=== PATIENT | female | born 1945 | race Caucasian/White ===

== ENCOUNTER → 2020-05-23 12:27 | Outpatient (BNVA) | payer MEDICARE, MEDICAID, SELFPAY | PROVIDERS: PCP Internal Medicine; Referring Provider Internal Medicine; Visit Provider Internal Medicine Gastroenterology | DX: K21.9 Gastro-esophageal reflux disease without esophagitis (principal); K44.9 Diaphragmatic hernia without obstruction or gangrene; Z79.899 Other long term (current) drug therapy | CPT/HCPCS: Q3014 ==

== ENCOUNTER 2021-02-05 10:16 | Outpatient (REF) | payer MEDICARE, MEDICAID, SELFPAY ==
--- NOTE | ~2021-02-05 | CT_ITS ---
EXAMINATION: CT HEAD WITHOUT CONTRAST CLINICAL INFORMATION: Unspecified COMPARISON: None TECHNIQUE: Contiguous axial imaging was performed from the skull base to vertex without intravenous administration of contrast. This CT examination was performed using dose optimization techniques as appropriate, variously including the following: *Automated exposure control *Adjustment of mA and/or kV according to patient size (this includes techniques or standardized protocols for targeted exams where dose is matched to indication/reason for exam; i.e. extremities or head) *Use of iterative reconstruction technique DLP: 535 mGy-cm FINDINGS: There is no evidence of an extra-axial collection. There is no evidence of intra-axial or extra-axial hemorrhage. The ventricles and extra-axial CSF spaces are appropriate. There is nonspecific periventricular white matter disease. 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 No mass, mass effect or acute infarct is seen. Paranasal sinuses, mastoid air cells and middle ears are clear. No skull fracture is seen. CT/CT head/brain wo con IMPRESSION: Nonspecific periventricular white matter disease and old left posterior parietal infarct.
== END 2021-02-05 10:17 | disposition home or self-care (01) ==
LOC: HO.CT 10:16
PROVIDERS: PCP Internal Medicine; Visit Provider Internal Medicine
DX: R40.20 Unspecified coma (principal)
CPT/HCPCS: 70450

== ENCOUNTER 2021-12-27 12:01 | Observation (INO) | payer MEDICARE, MEDICAID, SELFPAY ==
--- NOTE | ~2021-12-27 | CT_ITS ---
EXAMINATION: CT HEAD WITHOUT CONTRAST CLINICAL INFORMATION: Syncope and fall. Head trauma. COMPARISON: Previous head CT February 2021 TECHNIQUE: Contiguous axial imaging was performed from the skull base to vertex without intravenous administration of contrast. This CT examination was performed using dose optimization techniques as appropriate, variously including the following: *Automated exposure control *Adjustment of mA and/or kV according to patient size (this includes techniques or standardized protocols for targeted exams where dose is matched to indication/reason for exam; i.e. extremities or head) *Use of iterative reconstruction technique DLP: 595 mGy-cm FINDINGS: There is no evidence of an extra-axial collection. There is no evidence of intra-axial or extra-axial hemorrhage. The ventricles and extra-axial CSF spaces are slightly prominent. There is nonspecific periventricular white matter disease. There is an old left posterior parietal infarct that appears unchanged. No mass, mass effect or acute infarct is seen. Review at bone windows is normal. No skull fracture is seen. Visualized paranasal sinuses, mastoid air cells and middle ears are clear. CT/CT head/brain wo con IMPRESSION: No acute findings. No change from previous exams.
--- NOTE | ~2021-12-27 | CT_ITS ---
EXAMINATION: CT CERVICAL SPINE WITHOUT CONTRAST CLINICAL INFORMATION: Fall. Head and neck trauma. COMPARISON: None TECHNIQUE: Axial images through the cervical spine without contrast. Sagittal and coronal reconstructions on the technologist workstation were performed. This CT examination was performed using dose optimization techniques as appropriate, variously including the following: *Automated exposure control *Adjustment of mA and/or kV according to patient size (this includes techniques or standardized protocols for targeted exams where dose is matched to indication/reason for exam; i.e. extremities or head) *Use of iterative reconstruction technique DLP: 281 mGy-cm FINDINGS: There is mild curvature of the lower cervical and upper thoracic spine to the right. There is mild 3 mm anterior subluxation of C4 with respect to C5. Bone alignment is otherwise normal. No fracture or dislocation is seen. There is degenerative spondylosis and degenerative disc disease from C5-C6 and C6-C7. Prevertebral soft tissues are normal. There is bilateral carotid calcification. There is biapical pleural thickening. CT/CT cervical spine wo con IMPRESSION: Generative changes. No fracture or dislocation. Fleischner guidelines were followed.
--- NOTE | ~2021-12-27 | MR_ITS ---
EXAMINATION: MRI BRAIN WITHOUT CONTRAST CLINICAL INFORMATION: Dizziness. Headache. Vision changes. COMPARISON: CT scan of the head 12/27/2021. TECHNIQUE: Multiplanar MR imaging of the brain was performed without contrast. FINDINGS: There are small chronic cortical infarct involving left parietal and occipital lobes. Numerous chronic small vessel ischemic changes are also visualized within the periventricular white matter. No evidence of acute territorial infarct. No pathological magnetic susceptibility artifact. The left internal carotid artery flow-void is absent suggesting slow flow or occlusion of blood within the vessel. There is no intracranial mass effect or midline shift. No abnormal extra-axial collection. Lateral and third ventricles are normal. No hydrocephalus. Midline structures including the cervicomedullary junction are normal. No acute bone marrow signal changes. There is no mastoid or middle ear effusion. No active paranasal sinus disease. Globes and orbits are symmetric. MR/MR head/brain wo con IMPRESSION: The left internal carotid flow void is absent which indicates slow flow or occlusion of blood within the vessel. A dedicated CT angiogram of the head and neck is therefore recommended for better anatomic characterization of arterial patency. 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 Numerous chronic small vessel ischemic changes are also visualized within the periventricular white matter. No evidence of acute territorial infarct or hemorrhage.
--- NOTE | ~2021-12-27 | CT_ITS ---
Indication: Syncope nausea vomiting with pain EXAMINATION: CT chest, CT abdomen pelvis noncontrast. Comparison to previous dated 12/09/2018. This CT examination was performed using dose optimization techniques as appropriate, variously including the following: *Automated exposure control *Adjustment of mA and/or kV according to patient size (this includes techniques or standardized protocols for targeted exams where dose is matched to indication/reason for exam; i.e. extremities or head) *Use of iterative reconstruction technique. Radiation dose [address] chest; The thoracic inlet is within normal limits. The axillary regions are unremarkable. Coronary calcifications are noted There is no evidence for bulky central adenopathy. Some shotty nodes were also noted previously. This is a noncontrast study but the hilar regions do not appear pathologically enlarged. Comparable to previous. Imaging of the lung omer. Right lung; Stable apical scarring. Minimal groundglass nodularity on image 16 is stable. There is a new nodule on image 34 of 60. Measures 4 mm. Stable 2 mm nodule at the right base. There is no significant infiltrate or effusion. New 3 mm nodule on image 31 medially. Stable 2 mm nodule right base. Image 50. Left lung; Stable apical scarring. New 3 mm nodule image 12. There is no significant infiltrate or effusion. Upper abdomen; Liver grossly within normal limits. Spleen within normal limits. Region the pancreas is felt to be unchanged. Mildly nodular left adrenal is unchanged. The kidneys are nonobstructing. Comparable to previous. Gallbladder fossa within normal limits. The bladder is grossly unremarkable. The bowel pattern is felt to be nonobstructing. The appendix is within normal limits. There is no bulky adenopathy here. Atherosclerotic change but no aneurysmal change. The abdominal wall is felt to be intact. Review of the bone windows does not demonstrate an acute finding. Once again sclerosis in the femoral heads is seen but the femoral head contours are felt to be intact. CT/CT abdomen pelvis wo con IMPRESSION: No acute finding here. No significant infiltrate or effusion within the lungs. Some stable areas of nodularity with some new areas of nodularity as described. Recommendation is low-dose noncontrast CT in 6 months for continued evaluation. No acute finding in the abdomen pelvis. The bowel pattern is felt to be nonobstructing. Possible small hiatal hernia present. There is no suspicious fluid collection.
[2021-12-27 12:02] VITALS: BP 158/72; BP 170/63; PULSE 72; RESP 14; TEMP 36.1; BMI 24.7
--- NOTE | 2021-12-27 12:09 | ECG_ITS ---
Test Reason : syncope Blood Pressure : / mmHG Vent. Rate : 066 BPM Atrial Rate : 066 BPM P-R Int : 194 ms QRS Dur : 164 ms QT Int : 466 ms P-R-T Axes : 074 -07 -27 degrees QTc Int : 488 ms Normal sinus rhythm Left bundle branch block Abnormal ECG When compared with ECG of 02-MAR-2019 09:31, QRS duration has increased T wave inversion now evident in Inferior leads Referred By: Richard Morgan Electronically Signed By:URI VENTURA MD
[2021-12-27] MEDS: Metoclopramide HCl 10 MG/2 ML VIAL IVPUSH (12:21)
--- NOTE | 2021-12-27 12:24 | ED_ITS ---
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 Patient then immediately started vomiting afterwards, she tells me she feels like her stomach is empty and she just does not feel well. She also reports associated shortness of breath. Some dizziness with slight vision changes however she tells me she can still see, dizziness described as room spinning. At this time she is denying chest pain, fevers, chill. Onset (ago): day(s) (1) Radiation: non-radiation Severity: mild Pain Consistency: constant Relieving factors: none Exacerbating factors: none Associated symptoms: denies other symptoms Treatments prior to arrival: none Related Data Home Medications Medication Instructions Recorded Confirmed amitriptyline 10 mg tablet 10 mg PO DAILY 05/23/20 amlodipine 10 mg tablet 10 mg PO DAILY 05/23/20 atorvastatin 40 mg tablet 40 mg PO DAILY 05/23/20 cholecalciferol (vitamin D3) 25 25 mcg PO DAILY 05/23/20 mcg (1,000 unit) capsule furosemide 20 mg tablet 20 mg PO DAILY 05/23/20 lisinopril 40 mg tablet 40 mg PO DAILY 05/23/20 metoprolol tartrate 100 mg tablet 100 mg PO DAILY 05/23/20 nateglinide 60 mg tablet 60 mg PO TID 05/23/20 omeprazole 40 mg capsule,delayed 40 mg PO DAILY 05/23/20 release sitagliptin 50 mg tablet (Januvia) 50 mg PO DAILY 05/23/20 Allergies Allergy/AdvReac Type Severity Reaction Status Date / Time silver Allergy Unknown SKIN TEARS Unverified 03/22/20 15:14 [From TEGBlueroof 360 AG MESH] TAPE,PAPER Allergy Unknown UNKNOWN Uncoded 03/22/20 15:14 Review of Systems Review of Systems: Constitutional : No Weight loss, No Fever, No Chills, No Fatigue, No Malaise ENT/Mouth : No sore throat, No Rhinorrhea Eyes: No Eye Pain, No Swelling, No Redness Cardiovascular : No Chest Pain, + SOB, No Dyspnea on Exertion, No Orthopnea, No Edema, No Palpitations Respiratory : No Cough, No Sputum, No Wheezing Gastrointestinal : No Nausea, No Vomiting, No Diarrhea, No Constipation, No abdominal Pain, No Hematochezia, No Melena Genitourinary : No Dysuria, No Urinary Frequency, No Hematuria, Musculoskeletal : No joint pain, No Myalgias, No Joint Swelling Skin : No Skin Lesions, No rash Neuro : + Weakness, No Numbness, + Dizziness, No Headache Psych : No Anxiety/Panic, No Depression All other systems reviewed and are negative Yes all other systems are reviewed and are negative [facility] Past Medical History Attestation statement: The following information was validated with the patient. Source: old records reviewed and nursing notes reviewed Medical History (Updated 12/27/21 @ 16:18 by KARI Ozuna) Diabetes Surgical History (Updated 05/23/20 @ 12:34 by DESIREE Rodríguez) History of esophagogastroduodenoscopy (EGD) Family History Family History Father No problems noted. Mother No problems noted. Social History Social History Household Members: None Alcohol intake: current Alcohol intake frequency: does not drink Advance Directives: Yes Advance Directives Information Provided: Yes Advance Directives on File: No Current occupational status: retired Physical Exam ED Vital Signs: Vital Signs - 24 hr 12/27/21 12:02 Temperature 96.9 F Pulse Rate 72 Respiratory Rate 14 Blood Pressure 170/63 H Oxygen Delivery Method Room Air BMI result Body Mass Index 24.7 Vital signs stable Appearance: Alert.? Oriented X3.? No acute distress.? Head: Normocephalic, atraumatic, no step-offs or deformities Eyes: Pupils equal, round and reactive to light.? ENT: Pharynx normal.? Neck: Normal inspection.? Neck supple.? CVS: Normal heart rate and rhythm.? Pulses normal.? Respiratory: No respiratory distress.? Breath sounds normal.? Abdomen: Soft and nontender.? Skin: Skin warm and dry.? Normal skin color.? Normal skin turgor.? Extremities: No lower extremity edema.? No calf ttp. 5/5 strength to bilateral upper and lower extremities Back: No midline tenderness, no C-spine tenderness, full range of motion, no CVA tenderness bilaterally Neuro: Oriented X 3.? No motor deficit.? No sensory deficit. CN 2-12 intact Course Reevaluation(s) Reevaluation #1: Patient continues to have episodes of significant vomiting despite Zofran, Reglan and Benadryl. At this time Haldol will tried. CBC within normal limits. Point of care 291. Chemistry with a slightly low sodium 131, currently receiving hydration, patient with a baseline LAURO again currently receiving hydration. Patient's troponin 10.2nd troponin will be repeated 3 hours after initial. COVID negative. Time: 13:51 Reevaluation #2: CT of the abdomen and pelvis with no acute findings. CT of the cervical spine with no acute findings. CT of the head with no acute findings. MRI pending. Patient's vomiting improved after Haldol. Tech reported to me that they tried to do orthostatics vital signs, patient reporting significant dizziness therefore positive orthostatics, she sat up and immediately felt like she was going to vomit. Time: 14:38 Reevaluation #3: At this time patient will be admitted to the hospitalist team, no need to obtain a CT at this time is this will not change patient Plan/outcomes. I discussed this case with my attending Dr. Wilson who recommends hospital admission. She will be admitted for syncope, orthostatic dizziness, nausea, vomiting, occluded left- sided carotid artery. Patient was educated on diagnosis, treatment plan and questions were answered. At this time patient will be admitted to the hospital. Time: 16:16 Medical Decision Making [facility] Narrative Medical decision making narrative: 1227 76-year-old female presenting to the emergency department status post syncopal episode that was preceded by dizziness and followed by the sinus as well with some vague complaints of shortness of breath x1 day. Physical examination significant for patient complaining of dizziness with positional changes, vital signs stable, regular rate and rhythm, lungs clear, abdomen soft nontender nondistended, neuro nonfocal, cerebellar function intact. Likely BPPV, low suspicion for posterior infarct. However, at this time as patient fell and hit her head a CT of the head and brain will be ordered to rule out intracranial hemorrhage. Patient is not on blood thinners. Plan at this time is labs, urine, troponin, EKG, CT scans, orthostatic vital signs, fluids. Patient received Zofran by EMS therefore Benadryl and Reglan will be administered at this time Medical Records Medical records reviewed: Yes I reviewed the patient's medical records. Lab Data Lab results reviewed: Yes I reviewed the patient's lab results. Result diagrams: 12/27/21 12:21 12/27/21 12:21 Labs: Lab Results 12/27/21 12/27/21 12/27/21 Range/Units 12:07 12:21 12:21 WBC 7.1 (4.8-10.8) X10*3/uL RBC 4.39 (4.20-5.50) X10*6/uL Hgb 12.8 (12.0-16.0) g/dl Hct 38.4 (37.0-47.0) % MCV 87.5 (80.0-98.0) fL MCH 29.2 (27.0-33.0) pg MCHC 33.3 (31.0-35.0) g/dl RDW 14.5 (11.0-16.0) % Plt Count 241 (160-400) X10*3/uL MPV 10.1 (9.4-12.3) fL Immature Gran % (Auto) 0.4 (0.0-0.4) % Neut % (Auto) 62.9 (45-73) % Lymph % (Auto) 24.9 (20-40) % [place] % (Auto) 9.5 (2-11) % Eos % (Auto) 1.7 (0-4) % Baso % (Auto) 0.6 (0-2) % Lymph # (Auto) 1.8 (1.2-4.9) X10*3/uL [place] # (Auto) 0.7 (0.1-1.2) X10*3/uL Eos # (Auto) 0.1 (0.0-0.4) X10*3/uL Baso # (Auto) 0.0 (0.0-0.2) X10*3/uL Abs Immat Gran (auto) 0.03 (0.00-0.03) X10*3/uL Absolute Neuts (auto) 4.5 (2.0-8.3) x10*3/uL Absolute Nucleated RBC 0.000 (0.0-0.012) X10*3/uL Nucleated RBC % (auto) 0.0 (0.0-0.2) /100WBC Sodium 131 L (135-145) mmol/L Potassium 4.3 (3.3-5.1) mmol/L Chloride 99 (96-108) mmol/L Carbon Dioxide 22 (22-29) mmol/L Anion Gap 14 (12-20) BUN 33 H (9-16) mg/dL Creatinine 1.95 H (0.5-1.4) mg/dL Estim Creat Clear Calc 21.8 Estimated GFR 25 POC Glucose 291 H (60-115) mg/dL Random Glucose 341 H (60-115) mg/dL Calcium 9.4 (8.4-10.2) mg/dL Magnesium 1.9 (1.6-2.6) mg/dL Total Bilirubin 0.3 (0.0-1.0) mg/dL AST 31 (5-31) U/L ALT 28 (0-31) U/L Alkaline Phosphatase 135 H (39-117) U/L Troponin I High Sens (<3.5-17.0) ng/L Total Protein 7.3 (6.5-8.0) g/dL Albumin 4.1 (3.5-5.0) g/dL COVID-19 (INGE) (Negative) COVID-19 Clin Com 12/27/21 12/27/21 12/27/21 Range/Units 12:21 12:21 15:33 WBC (4.8-10.8) X10*3/uL RBC (4.20-5.50) X10*6/uL Hgb (12.0-16.0) g/dl Hct (37.0-47.0) % MCV (80.0-98.0) fL MCH (27.0-33.0) pg MCHC (31.0-35.0) g/dl RDW (11.0-16.0) % Plt Count (160-400) X10*3/uL MPV (9.4-12.3) fL Immature Gran % (Auto) (0.0-0.4) % Neut % (Auto) (45-73) % Lymph % (Auto) (20-40) % [place] % (Auto) (2-11) % Eos % (Auto) (0-4) % Baso % (Auto) (0-2) % Lymph # (Auto) (1.2-4.9) X10*3/uL [place] # (Auto) (0.1-1.2) X10*3/uL Eos # (Auto) (0.0-0.4) X10*3/uL Baso # (Auto) (0.0-0.2) X10*3/uL Abs Immat Gran (auto) (0.00-0.03) X10*3/uL Absolute Neuts (auto) (2.0-8.3) x10*3/uL Absolute Nucleated RBC (0.0-0.012) X10*3/uL Nucleated RBC % (auto) (0.0-0.2) /100WBC Sodium (135-145) mmol/L Potassium (3.3-5.1) mmol/L Chloride (96-108) mmol/L Carbon Dioxide (22-29) mmol/L Anion Gap (12-20) BUN (9-16) mg/dL Creatinine (0.5-1.4) mg/dL Estim Creat Clear Calc Estimated GFR POC Glucose (60-115) mg/dL Random Glucose (60-115) mg/dL Calcium (8.4-10.2) mg/dL Magnesium (1.6-2.6) mg/dL Total Bilirubin (0.0-1.0) mg/dL AST (5-31) U/L ALT (0-31) U/L Alkaline Phosphatase (39-117) U/L Troponin I High Sens 10.8 10.6 (<3.5-17.0) ng/L Total Protein (6.5-8.0) g/dL Albumin (3.5-5.0) g/dL COVID-19 (INGE) Negative (Negative) COVID-19 Clin Com See Note ECG Data Attestation: I personally reviewed and interpreted this ECG as follows: Prior ECG tracings: available for review Interpretation: Ventricular rate of 66, MO normal, QRS normal, QT/QTC normal. EKG shows normal sinus rhythm with a left bundle branch block. When compared to EKG of February 2019 there are T-wave inversions in the inferior lead however no signs of acute ischemia at this time Critical Care Time Critical Care Time Critical Care Time: No Discharge Plan Discharge Clinical Impression: Syncope, Orthostatic dizziness, Nausea & vomiting, Carotid artery occlusion Patient Disposition: Still a Patient Prescriptions: No Action atorvastatin 40 mg tablet 40 mg PO DAILY cholecalciferol (vitamin D3) 25 mcg (1,000 unit) capsule 25 mcg PO DAILY furosemide 20 mg tablet 20 mg PO DAILY amlodipine 10 mg tablet 10 mg PO DAILY lisinopril 40 mg tablet 40 mg PO DAILY Januvia 50 mg tablet 50 mg PO DAILY nateglinide 60 mg tablet 60 mg PO TID Rx Instructions: give before meal(s) metoprolol tartrate 100 mg tablet 100 mg PO DAILY omeprazole 40 mg capsule,delayed release(DR/EC) 40 mg PO DAILY amitriptyline 10 mg tablet 10 mg PO DAILY
[2021-12-27 12:25] LABS: Glucose, Whole Blood 291 mg/dL (60-115)
[2021-12-27 12:28] LABS: MANUAL DIFF FLAG NO
[2021-12-27 12:36] LABS: Basophils Percent Auto 0.6 % (0-2); Eosinophils Absolute Auto 0.1 X10*3/uL (0.0-0.4); Eosinophils Percent Auto 1.7 % (0-4); Hematocrit 38.4 % (37.0-47.0); Hemoglobin 12.8 g/dl (12.0-16.0); Imm Gran Abs Auto 0.03 X10*3/uL (0.00-0.03); Imm Gran Pct Auto 0.4 % (0.0-0.4); Lymphocytes Absolute Auto 1.8 X10*3/uL (1.2-4.9); Lymphocytes Percent Auto 24.9 % (20-40); Mean Corpuscular HGB Conc 33.3 g/dl (31.0-35.0); Mean Corpuscular Hemoglobin 29.2 pg (27.0-33.0); Mean Corpuscular Volume 87.5 fL (80.0-98.0); Mean Platelet Volume 10.1 fL (9.4-12.3); Monocytes Absolute Auto 0.7 X10*3/uL (0.1-1.2); Monocytes Percent Auto 9.5 % (2-11); Neutrophils Absolute Auto 4.5 x10*3/uL (2.0-8.3); Neutrophils Percent Auto 62.9 % (45-73); Platelet Count 241 X10*3/uL (160-400); Red Blood Count 4.39 X10*6/uL (4.20-5.50); Red Cell Distribution Width 14.5 % (11.0-16.0); White Blood Count 7.1 X10*3/uL (4.8-10.8)
[2021-12-27 12:50] LABS: Alanine Aminotransferase 28 U/L (0-31); Albumin Level 4.1 g/dL (3.5-5.0); Alkaline Phosphatase 135 U/L (39-117); Anion Gap 14 (12-20); Aspartate Amino Transferase 31 U/L (5-31); Bilirubin Total 0.3 mg/dL (0.0-1.0); Blood Urea Nitrogen 33 mg/dL (9-16); Calcium 9.4 mg/dL (8.4-10.2); Carbon Dioxide 22 mmol/L (22-29); Chloride 99 mmol/L (96-108); Creatinine Clr Calc Pharmacy 21.8; Estimated Glomerular Filt Rate 25; Glucose Random 341 mg/dL (60-115); Magnesium 1.9 mg/dL (1.6-2.6); Potassium 4.3 mmol/L (3.3-5.1); Sodium 131 mmol/L (135-145); Total Protein 7.3 g/dL (6.5-8.0)
[2021-12-27 12:51] LABS: COVID-19 Test Negative (Negative); IDNOW Serial# 16C4AD1C
[2021-12-27 12:52] LABS: Troponin-I High Sensitivity 10.8 ng/L (<3.5-17.0)
[2021-12-27] MEDS: 0.9 % Sodium Chloride 1,000 ML 999 ML IV ×2 (12:56→15:24)
[2021-12-27] MEDS: diphenhydrAMINE HCL 50 MG/ML VIAL 25 MG IVPUSH (13:01)
[2021-12-27] MEDS: Haloperidol Lactate 5 MG/ML VIAL 2.5 MG IVPUSH (13:05)
--- NOTE | 2021-12-27 13:21 | PC.NURSE ---
pt can not tolerate orthostatic v/s eval . supine to full fowlers pt stated she feels dizzy and nausea. findingd reported to provider
[2021-12-27] MEDS: LORazepam 2 MG/ML VIAL 1 MG IVPUSH (14:00)
[2021-12-27 15:58] LABS: Troponin-I High Sensitivity 10.6 ng/L (<3.5-17.0)
[2021-12-27 16:53] LABS: Appearance Urine HAZY; Color Urine YELLOW; Glucose Urine UA >=1000 MG/DL (NEG); Leukocyte Esterase Urine NEG (NEG); Nitrite Urine NEG (NEG); UACC Culture Trigger NO; Urine Blood TRACE (NEG); Urine Ketones NEG (NEG); Urine Protein 1+ MG/DL (NEG-TRACE)
--- NOTE | 2021-12-27 17:11 | PHA.MEDREC ---
Pharmacy Consult ? Medication Reconciliation Pharmacy has completed the medication reconciliation.
--- NOTE | 2021-12-27 17:18 | P.HPHOSP_ITS ---
History of Present Illness Date of Service: 12/27/21 Chief Complaint: syncope 76-year-old female with history of diabetes,CKD 3, hypertension, GERD coming in her passing out. She was getting her hair done when she felt very dizzy and syncopized, also c/o some visual changes. In ED has multiple episodes of vomiting treated with Zofran, reglan, Benadryl and finally Haldol. Work up thus far unremarkable including CT heada, ECG, labs are ok, and she's nearly back to her baseline. MRI no acute finding but possible left carrotid occlusion Review of Systems Review of Systems: Gen: no fever Resp: no sob, no cough CV: no chest, no FONSECA, no leg edema GI: + n/v, no abd pain Neuro: No confusion, dizzy Yes all other systems are reviewed and are negative [facility] Medical History CKD (chronic kidney disease) stage 3, GFR 30-59 ml/min Diabetes GERD (gastroesophageal reflux disease) HTN (hypertension) Family History Father No problems noted. Mother No problems noted. Surgical History (Updated 05/23/20 @ 12:34 by DESIREE Rodríguez) History of esophagogastroduodenoscopy (EGD) Social History Household Members: None Alcohol intake: current Alcohol intake frequency: does not drink Patient Tobacco Use Status: Current someday Tobacco user Tobacco use type: Cigarette Cigarette Packs Per Day: 0.5 Cigarettes Per Day: 10.0 Smoked in Last 30 Days: Yes Patient Interested in Nicotine Replacement: No Patient Given Instructions on How to Stop Smoking: Yes Date Education Initiated: 12/27/21 Advance Directives: Yes Advance Directives Information Provided: Yes Advance Directives on File: No Advance Directives Date on File: 12/27/21 Current occupational status: retired Meds Allergies Allergy/AdvReac Type Severity Reaction Status Date / Time silver Allergy Unknown SKIN TEARS Unverified 03/22/20 15:14 [From TEGADERM AG MESH] TAPE,PAPER Allergy Unknown UNKNOWN Uncoded 03/22/20 15:14 Active Medications: Current Medications Pharmacy Consult (Consult Rx Perform Med Rec) 1 each MISCELLANE ONCE PRN PRN Reason: Consult order Home Medications Medication Instructions Recorded Confirmed Last Taken Type amlodipine 10 mg tablet 10 mg PO DAILY 05/23/20 12/27/21 12/27/21 History atorvastatin 40 mg tablet 40 mg PO BEDTIME 05/23/20 12/27/21 12/26/21 History cholecalciferol (vitamin D3) 25 25 mcg PO DAILY 05/23/20 12/27/21 12/27/21 History mcg (1,000 unit) capsule furosemide 20 mg tablet 20 mg PO DAILY 05/23/20 12/27/21 Unknown History lisinopril 40 mg tablet 40 mg PO DAILY 05/23/20 12/27/21 12/27/21 History metoprolol tartrate 100 mg tablet 200 mg PO BID 05/23/20 12/27/21 12/27/21 History nateglinide 60 mg tablet 60 mg PO TID 05/23/20 12/27/21 12/27/21 History omeprazole 40 mg capsule,delayed 40 mg PO DAILY 05/23/20 12/27/21 12/27/21 History release sitagliptin 50 mg tablet (Januvia) 50 mg PO DAILY 05/23/20 12/27/21 12/27/21 History albuterol sulfate 90 mcg/actuation 2 puff PO QID PRN Shortness Of 12/27/21 12/27/21 Unknown History aerosol inhaler Breath budesonide-formoterol HFA 160 1 puff PO BID 12/27/21 12/27/21 12/27/21 History mcg-4.5 mcg/actuation aerosol inhaler (Symbicort) ezetimibe 10 mg tablet 1 tab PO DAILY 12/27/21 12/27/21 12/27/21 History nortriptyline 25 mg capsule 2 cap PO BEDTIME 12/27/21 12/27/21 12/26/21 History Physical Exam Vital Signs and Narrative: Vital Signs: Last Vital Signs Temp 96.9 F 12/27/21 12:02 Pulse 72 12/27/21 12:02 Resp 14 12/27/21 12:02 BP 170/63 H 12/27/21 12:02 O2 Del Method 12/27/21 12:02 BMI result Body Mass Index 24.7 Const: Other: General: AO X 3, no acute distress HEENT: PERRLA, no nystgmus NEck supple Resp: CTA bilateral CVS: S1,S2,RRR GI: +BS, NT, no distention Skin: No rash Neuro: motor grossly intact, CN 2 to 12 intact, gait no tested, but coordination appear intact Psych: appropriate affect Results Labs CBC and Chem 7: 12/27/21 12:21 12/27/21 12:21 Labs: Laboratory Results - last 24 hr 12/27/21 12/27/21 12/27/21 12:07 12:21 12:21 MCV 87.5 MCH 29.2 MCHC 33.3 RDW 14.5 Plt Count 241 MPV 10.1 Immature Gran % (Auto) 0.4 Neut % (Auto) 62.9 Lymph % (Auto) 24.9 [place] % (Auto) 9.5 Eos % (Auto) 1.7 Baso % (Auto) 0.6 Lymph # (Auto) 1.8 [place] # (Auto) 0.7 Eos # (Auto) 0.1 Baso # (Auto) 0.0 Abs Immat Gran (auto) 0.03 Absolute Neuts (auto) 4.5 Absolute Nucleated RBC 0.000 Nucleated RBC % (auto) 0.0 Anion Gap 14 Estim Creat Clear Calc 21.8 Estimated GFR 25 POC Glucose 291 H Random Glucose 341 H Calcium 9.4 Magnesium 1.9 Total Bilirubin 0.3 AST 31 ALT 28 Alkaline Phosphatase 135 H Troponin I High Sens Total Protein 7.3 Albumin 4.1 Urine Color Urine Appearance Urine pH Ur Specific [place] Urine Protein Urine Glucose (UA) Urine Ketones Urine Blood Urine Nitrite Ur Leukocyte Esterase COVID-19 (INGE) COVID-19 Clin Com 12/27/21 12/27/21 12/27/21 12:21 12:21 15:33 MCV MCH MCHC RDW Plt Count MPV Immature Gran % (Auto) Neut % (Auto) Lymph % (Auto) [place] % (Auto) Eos % (Auto) Baso % (Auto) Lymph # (Auto) [place] # (Auto) Eos # (Auto) Baso # (Auto) Abs Immat Gran (auto) Absolute Neuts (auto) Absolute Nucleated RBC Nucleated RBC % (auto) Anion Gap Estim Creat Clear Calc Estimated GFR POC Glucose Random Glucose Calcium Magnesium Total Bilirubin AST ALT Alkaline Phosphatase Troponin I High Sens 10.8 10.6 Total Protein Albumin Urine Color Urine Appearance Urine pH Ur Specific [place] Urine Protein Urine Glucose (UA) Urine Ketones Urine Blood Urine Nitrite Ur Leukocyte Esterase COVID-19 (INGE) Negative COVID-19 Clin Com See Note 12/27/21 16:38 MCV MCH MCHC RDW Plt Count MPV Immature Gran % (Auto) Neut % (Auto) Lymph % (Auto) [place] % (Auto) Eos % (Auto) Baso % (Auto) Lymph # (Auto) [place] # (Auto) Eos # (Auto) Baso # (Auto) Abs Immat Gran (auto) Absolute Neuts (auto) Absolute Nucleated RBC Nucleated RBC % (auto) Anion Gap Estim Creat Clear Calc Estimated GFR POC Glucose Random Glucose Calcium Magnesium Total Bilirubin AST ALT Alkaline Phosphatase Troponin I High Sens Total Protein Albumin Urine Color YELLOW Urine Appearance HAZY Urine pH 6.0 Ur Specific [place] 1.010 Urine Protein 1+ H Urine Glucose (UA) >=1000 H Urine Ketones NEG Urine Blood TRACE Urine Nitrite NEG Ur Leukocyte Esterase NEG COVID-19 (INGE) COVID-19 Clin Com Imaging Radiologist's Impressions: Impressions Abdomen/Pelvis CT 12/27/21 13:14 IMPRESSION: No acute finding here. No significant infiltrate or effusion within the lungs. Some stable areas of nodularity with some new areas of nodularity as described. Recommendation is low-dose noncontrast CT in 6 months for continued evaluation. No acute finding in the abdomen pelvis. The bowel pattern is felt to be nonobstructing. Possible small hiatal hernia present. There is no suspicious fluid collection. Cervical Spine CT 12/27/21 13:14 IMPRESSION: Generative changes. No fracture or dislocation. Fleischner guidelines were followed. Chest CT 12/27/21 13:14 IMPRESSION: No acute finding here. No significant infiltrate or effusion within the lungs. Some stable areas of nodularity with some new areas of nodularity as described. Recommendation is low-dose noncontrast CT in 6 months for continued evaluation. No acute finding in the abdomen pelvis. The bowel pattern is felt to be nonobstructing. Possible small hiatal hernia present. There is no suspicious fluid collection. Head CT 12/27/21 13:14 IMPRESSION: No acute findings. No change from previous exams. Brain MRI 12/27/21 14:31 IMPRESSION: The left internal carotid flow void is absent which indicates slow flow or occlusion of blood within the vessel. A dedicated CT angiogram of the head and neck is therefore recommended for better anatomic characterization of arterial patency. 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 Numerous chronic small vessel ischemic changes are also visualized within the periventricular white matter. No evidence of acute territorial infarct or hemorrhage. Assessment and Plan (1) Syncope: Status: Acute (2) Orthostatic dizziness: Status: Acute (3) Nausea & vomiting: Status: Acute Plan 76-year-old female with history of diabetes,CKD 3, hypertension, GERD coming in her syncope with multiple episode of vomitting, neuro thus far intact Plan: Will observe overnight, hydrate, neuro check, carotid US tomorrow to further assess MRI finding, unable to due CTA d/t renal failure. consider Neuro eval. Symptomatic control for N/v which seems to have improved. DVT Prophylaxis heparin if stays over 24 hours.. Quality Stroke Does the patient have a stroke diagnosis?: No VTE Prior VTE?: No VTE Risk Level:: Medical - low VTE Device Contraindication: Treatment Not Tolerated VTE Drug Contraindication: Treatment Not Indicated
[2021-12-27 17:21] LABS: Amorphous Sediment Urine TRACE /LPF; Bacteria Urine 1+ /LPF; Squamous Epithelial Cell Urine TRACE /LPF
[2021-12-27] MEDS: Sodium Chloride 0.45 % 1,000 ML 100 ML IVCONT (18:17)
[2021-12-27 20:00] VITALS: BP 169/78; PULSE 82; RESP 18; TEMP 37; O2SAT 98
[2021-12-27 20:47] VITALS: BMI 25.0
[2021-12-27] MEDS: Atorvastatin Calcium 40 MG TABLET PO (20:47)
[2021-12-27] MEDS: 0.9 % Sodium Chloride Flush 3 ML SYRINGE IVFLUSH (20:47)
[2021-12-27] MEDS: Nortriptyline HCl 25 MG CAPSULE 50 MG PO (20:47)
[2021-12-27] MEDS: Metoprolol Tartrate 100 MG TABLET 200 MG PO (20:47)
[2021-12-27] MEDS: Albuterol Sulfate 90 MCG 8 GM INHALER 2 PUFF INHALE (22:42)
[2021-12-27 23:29] VITALS: BP 137/56; PULSE 77; RESP 20; TEMP 36.6; O2SAT 96
[2021-12-28 03:18] VITALS: BP 164/78; PULSE 77; RESP 21; TEMP 36.5; O2SAT 98
[2021-12-28] MEDS: Sodium Chloride 0.45 % 1,000 ML 100 ML IVCONT (05:21)
[2021-12-28] MEDS: Omeprazole 40 MG CAPSULE.DR PO (05:21)
[2021-12-28 07:55] VITALS: BP 189/90; PULSE 81; RESP 18; TEMP 36.4; O2SAT 96
[2021-12-28] MEDS: 0.9 % Sodium Chloride Flush 3 ML SYRINGE IVFLUSH (08:55)
[2021-12-28] MEDS: Metoprolol Tartrate 100 MG TABLET 200 MG PO (08:56)
[2021-12-28] MEDS: SITagliptin Phosphate 50 MG TABLET PO (08:56)
[2021-12-28] MEDS: Furosemide 20 MG TABLET PO (08:56)
[2021-12-28] MEDS: lisinopriL 40 MG TABLET PO (08:56)
[2021-12-28] MEDS: amLODIPine Besylate 10 MG TABLET PO (08:56)
[2021-12-28] MEDS: Cholecalciferol (Vitamin D3) 25 MCG TABLET PO (08:56)
[2021-12-28] MEDS: Ezetimibe 10 MG TABLET PO (08:56)
[2021-12-28 12:00] VITALS: BP 176/101; PULSE 75; RESP 18; TEMP 36.4; O2SAT 95
--- NOTE | 2021-12-28 13:22 | PM.DS ---
DS: Providers Provider Date of Service: 12/28/21 Date of admission: 12/27/21 17:35 Primary care physician: Gene Sanchez MD Consults: 12/28/21 08:57 Consult to Neurology Routine Consulting Provider: [facility] Reason for consultation: Syncope, abnormal MRI DS: Diagnosis Discharge Diagnosis (1) Syncope: Status: Resolved (2) Orthostatic dizziness: Status: Resolved (3) Nausea & vomiting: Status: Resolved DS: Summary Hospital Course Hospital Course: 76-year-old female with history of diabetes,CKD 3, hypertension, GERD coming in her passing out. She was getting her hair done when she felt very dizzy and syncopized, also c/o some visual changes. In ED has multiple episodes of vomiting treated with Zofran, reglan, Benadryl and finally Haldol. Work up thus far unremarkable including CT heada, ECG, labs are ok, and she's nearly back to her baseline. MRI no acute finding but possible left carrotid occlusion Hospital course: Patient was observed overnight on cardiac monitoring without arrhythmia, no further episode..Discussed with Neuro, no indication for further testing, patient refused carotid US and wanted to go home. Time Spent with Patient Time attestation: Total time spent providing and/or coordinating discharge services: Discharge coordination time: Greater than 30 minutes Quality: Safe Use of Opioids Does Pt have an Active Cancer Diagnosis on the Problem List?: No Quality: Stroke Does the patient have a stroke diagnosis?: No Physical Exam Vital Signs: Vital Signs: Last Vital Signs Temp 97.6 F 12/28/21 12:00 Pulse 75 12/28/21 12:00 Resp 18 12/28/21 12:00 BP 176/101 H 12/28/21 12:00 Pulse Ox 95 12/28/21 12:00 O2 Del Method 12/28/21 12:00 BMI result Body Mass Index 25.0 DS: Data Data Completed and Pending Labs on day of discharge: Laboratory Results - last 24 hr 12/27/21 12/27/21 15:33 16:38 Troponin I High Sens 10.6 Urine Color YELLOW Urine Appearance HAZY Urine pH 6.0 Ur Specific [place] 1.010 Urine Protein 1+ H Urine Glucose (UA) >=1000 H Urine Ketones NEG Urine Blood TRACE Urine Nitrite NEG Ur Leukocyte Esterase NEG Urine RBC 1-4 Urine WBC 1-4 Ur Squamous Epith Cells TRACE Amorphous Sediment TRACE Urine Bacteria 1+ Discharge Plan Discharge Anticipated Discharge Date/Time: 12/28/21 12:25 Patient Disposition: Home, Self-Care Discharge Diagnosis: Syncope, Nausea and vomitting Referrals: Gene Sanchez MD [Primary Care Provider] - 1 Week Discharge Medications: New aspirin 81 mg capsule 81 mg PO DAILY Qty: 30 0RF Continued nortriptyline 25 mg capsule 2 cap PO BEDTIME albuterol sulfate 90 mcg/actuation HFA aerosol inhaler 2 puff PO QID PRN (Reason: Shortness Of Breath) ezetimibe 10 mg tablet 1 tab PO DAILY budesonide-formoterol [Symbicort] 160-4.5 mcg/actuation HFA aerosol inhaler 1 puff PO BID atorvastatin 40 mg tablet 40 mg PO BEDTIME cholecalciferol (vitamin D3) 25 mcg (1,000 unit) capsule 25 mcg PO DAILY furosemide 20 mg tablet 20 mg PO DAILY amlodipine 10 mg tablet 10 mg PO DAILY lisinopril 40 mg tablet 40 mg PO DAILY Januvia 50 mg tablet 50 mg PO DAILY nateglinide 60 mg tablet 60 mg PO TID Rx Instructions: give before meal(s) metoprolol tartrate 100 mg tablet 200 mg PO BID omeprazole 40 mg capsule,delayed release(DR/EC) 40 mg PO DAILY Discharge Orders: Discharge Order (Routine); Ordered 12/28/21 Ordered By: Simone Olivares Activity on Discharge: As tolerated Stand Alone Forms: Patient Portal Discharge page Care Plan Goals: full recovery from [facility] Health Concerns: HTN, diabetes, syncope Plan of Treatment: continue taking all your medications as before, take baby asprin daily and follow up with your Doctor in a week Assessment: as above Discharge Date/Time: 12/28/21 15:23
[2021-12-28 14:00] VITALS: BP 158/78
--- NOTE | 2021-12-28 14:18 | MHC.CM.PN ---
Addendum entered by Marian Kurtz 12/28/21 14:21: PT DISCHARGED HOME TODAY WITH NO NEW SERVICES ORDERED TAXI VOUCHER PROVIDED Original Note: PT REPORTS SHE LIVES ALONE SHE REPORTS HER DAUGHTER RECENTLY GOT HER CONNECTED WITH [facility] AND THEY ARE NOW PROVIDING A [employer] REPAIRER SHE REPORTS THE [employer]ERA REPAIRER IS CURRENTLY ONLY ASSISTING WITH [employer] BUT SHE ALSO NEEDS RIDES TO APPTS AND SHOPPING. CM ENCOURAGED HER TO DISCUSS THIS WITH HER EC CM AND TO UTILIZE HER PT1 BENEFITS FROM [place]. PT REPORTS HER DAUGHTER, MARIAN, IS HER HCP-COPY REQUESTED PT REPORTS SHE IS COVID-19 VACCINATED AND HAD ONE BOOSTER PCP: ALEXIA [facility] OBSERVATION NOTICE DELIVERED CURRENT DC PLAN IS HOME WITH RESUMPTION OF [employer] REPAIRER SERVICES PT WILL NEED TRANSPORT HOME
== END 2021-12-28 15:23 | disposition home or self-care (01) ==
LOC: HO.ED 16:18 → HO.EDOVER 17:48 → HO.IMC 18:53
PROVIDERS: Physician Assistant; Admitting Provider Internal Medicine; Emergency Provider Emergency Medicine Emergency Medical Services; PCP Internal Medicine; Visit Provider Internal Medicine
DX: R55 Syncope and collapse (principal); E11.22 Type 2 diabetes mellitus with diabetic chronic kidney disease; R11.2 Nausea with vomiting, unspecified; I12.9 Hypertensive chronic kidney disease with stage 1 through stage 4 chronic kidney disease, or unspecified chronic kidney disease; N18.30 Chronic kidney disease, stage 3 unspecified; K21.9 Gastro-esophageal reflux disease without esophagitis; F17.210 Nicotine dependence, cigarettes, uncomplicated; Z79.899 Other long term (current) drug therapy; Z20.822 Contact with and (suspected) exposure to COVID-19
CPT/HCPCS: 36415; 70450; 70551; 71250; 72125; 74176; 80053; 81001; 82947; 83735; 84484; 85025; 87635; 93005; 96361; 96374; 96375; 99219; 99285; J1200; J2060; J2765

== ENCOUNTER 2022-02-27 09:34 | Outpatient (REF) | payer MEDICARE, MEDICAID, SELFPAY ==
--- NOTE | ~2022-02-27 | US_ITS ---
EXAMINATION: US EXTRACRANIAL CAROTID DUPLEX, BILATERAL CLINICAL INFORMATION: Syncope COMPARISON: None TECHNIQUE: Real-time ultrasound and Doppler techniques (integrating B-mode 2-D vascular images, Doppler spectral analysis and color-flow Doppler imaging) were utilized to interrogate the extracranial carotid arteries on the right. The exam was terminated prematurely secondary to patient's clinical status. FINDINGS: Right Side: 1. There is heterogeneous atherosclerotic plaque seen in the bifurcation/proximal ICA region. 2. The common carotid artery PSV proximally is 110 cm/s. US/US carotid duplex BI IMPRESSION: RIGHT: Heterogeneous atherosclerotic plaque. The exam was terminated secondary to patient's clinical condition. The patient was sent to the emergency room for evaluation.
== END 2022-02-27 09:35 | disposition home or self-care (01) ==
LOC: HO.US 09:34
PROVIDERS: Visit Provider Internal Medicine
DX: Z13.89 Encounter for screening for other disorder (principal)
CPT/HCPCS: 93880

== ENCOUNTER 2022-02-27 10:15 | Emergency (ER) | payer MEDICARE, MEDICAID, SELFPAY ==
[2022-02-27 10:22] VITALS: BP 150/73; PULSE 61; RESP 28; TEMP 36.4; O2SAT 91; BMI 23.8
[2022-02-27] MEDS: Meclizine HCl 25 MG TABLET PO (11:37)
--- NOTE | 2022-02-27 12:06 | ED.DIZZY ---
HPI - Dizziness General Chief Complaint: Nausea/Vomiting/Diarrhea Stated Complaint: Sent from ultrasound Time Seen by Provider: 02/27/22 11:13 Source: patient Mode of arrival: other (Rapid response and radiology) Limitations: no limitations History of Present Illness HPI Narrative: 76-year-old female who presents emergency department for evaluation of room spinning dizziness, chest pain abdominal pain. The patient was in the outpatient radiology department and she was about to get a carotid ultrasound study. She states that the technicians started the lower the head of her bed when she had a sudden onset of room spinning dizziness. She then had a discomfort that she describes as a pulling sensation from her lower abdomen all elevated up into her chest. She then developed nausea, vomiting and diaphoresis. Patient states that she has had a similar episode in the past and was here in the emergency department. She also states that she often gets the sensation when she is lying down in bed and turns her head either to the right or to the left. The time study technician concerned about the patient's appearance and activated a rapid response , which I responded and evaluated her and the ultrasound department. The patient was diaphoretic, she was dry heaving, she did not appear well, therefore she was transferred to the emergency department for evaluation MD elicited complaint: dizziness Pertinent past history: other (Similar episodes in the past) Onset (ago): minute(s) (5) Timing: sudden onset Severity: severe Description: room spinning Context: change in body position History of similar symptoms: Yes Exacerbating factors: movement/ambulation Relieving factors: nothing Associated symptoms: nausea, vomiting, diaphoresis, chest pain and other (Abdominal pain) Related Data Home Medications Medication Instructions Recorded Confirmed amlodipine 10 mg tablet 10 mg PO DAILY 05/23/20 12/27/21 atorvastatin 40 mg tablet 40 mg PO BEDTIME 05/23/20 12/27/21 cholecalciferol (vitamin D3) 25 25 mcg PO DAILY 05/23/20 12/27/21 mcg (1,000 unit) capsule furosemide 20 mg tablet 20 mg PO DAILY 05/23/20 12/27/21 lisinopril 40 mg tablet 40 mg PO DAILY 05/23/20 12/27/21 metoprolol tartrate 100 mg tablet 200 mg PO BID 05/23/20 12/27/21 nateglinide 60 mg tablet 60 mg PO TID 05/23/20 12/27/21 omeprazole 40 mg capsule,delayed 40 mg PO DAILY 05/23/20 12/27/21 release sitagliptin 50 mg tablet (Januvia) 50 mg PO DAILY 05/23/20 12/27/21 albuterol sulfate 90 mcg/actuation 2 puff PO QID PRN Shortness Of 12/27/21 12/27/21 aerosol inhaler Breath budesonide-formoterol HFA 160 1 puff PO BID 12/27/21 12/27/21 mcg-4.5 mcg/actuation aerosol inhaler (Symbicort) ezetimibe 10 mg tablet 1 tab PO DAILY 12/27/21 12/27/21 nortriptyline 25 mg capsule 2 cap PO BEDTIME 12/27/21 12/27/21 Previous Rx's Medication Instructions Recorded aspirin 81 mg capsule 81 mg PO DAILY #30 caps 12/28/21 Allergies Allergy/AdvReac Type Severity Reaction Status Date / Time silver Allergy Unknown SKIN TEARS Verified 02/27/22 11:37 [From [employer] MESH] TAPE,PAPER Allergy Unknown UNKNOWN Uncoded 02/27/22 11:37 Review of Systems Review of Systems: Yes all other systems are reviewed and are negative [facility] Past Medical History [facility] Narrative: Social history: The patient smokes 5-10 cigarettes per day. She denies alcohol use. She denies drug use. Medical History Carotid artery occlusion CKD (chronic kidney disease) stage 3, GFR 30-59 ml/min Diabetes GERD (gastroesophageal reflux disease) GERD (gastroesophageal reflux disease) Hiatal hernia HTN (hypertension) Surgical History History of esophagogastroduodenoscopy (EGD) Family History Family History Father No problems noted. Mother No problems noted. Social History Social History Household Members: None Alcohol intake: never Patient Tobacco Use Status: Current someday Tobacco user Tobacco use type: Cigarette Cigarette Packs Per Day: 0.5 Cigarettes Per Day: 10.0 Use of substances other than those prescribed or required for medical reasons: No Advance Directives: No Advance Directives Information Provided: No Advance Directives Date on File: 12/27/21 service: No Current occupational status: retired Physical Exam Vital Signs: Vital Signs: Last Vital Signs Temp 97.6 F 02/27/22 10:22 Pulse 61 02/27/22 10:22 Resp 28 H 02/27/22 10:22 BP 150/73 H 02/27/22 10:22 Pulse Ox 91 L 02/27/22 10:22 O2 Del Method 02/27/22 10:22 BMI result Body Mass Index 23.8 Const: Other: Awake, alert, female patient, oriented to person, place, she is diaphoretic, she is sitting up right on the ultrasound structure, she is actively dry heaving HEENT: Head: Yes normal to inspection, Yes normocephalic and Yes atraumatic Ears: external ears normal General nose exam: Normal external nose present Face and sinus: Yes normal facial exam Mouth: Normal oral and palatal mucosa present Throat: Yes posterior oropharynx normal Eyes: General: appearance normal, both eyes and all related structures Pupils: Equal, round and reactive pupils present Neck: Neck: Yes normal visual inspection, Yes no lymphadenopathy, Yes trachea midline and Yes supple Chest: Chest palpation & inspection: normal inspection of the chest and normal palpation of entire chest wall Resp: Effort & Inspection: normal respiratory effort and able to speak in complete sentences Auscultation: clear to auscultation bilaterally Cardio: Rate: regular rate Rhythm: regular rhythm Heart sounds: S1 normal heart sound present, S2 normal heart sound present and no murmurs GI: Inspection: Yes normal to inspection Palpation (GI): Soft to palpation, nontender and no guarding Auscultation: normal bowel sounds : General: Yes no CVA tenderness Back/Spine/Pelvis: Back: no CVA tenderness Skin: General skin exam: no rashes or lesions noted Neuro: Cranial nerves: Yes CN's II-XII intact bilaterally and Yes Equal, round and reactive pupils present Cognition (Neuro): normal cognition Motor exam (neuro): 5/5 motor strength present throughout Coordination: [id number] test normal and [id number] test normal Extrem: General: Yes normal to inspection Psych: Appearance: grossly normal Speech and movement: Normal speech and movement present Affect: normal affect Attitude: cooperative Thought process: Normal thought process present Thought content: Normal thought content present Course Course Course Narrative: 76-year-old female who presents emergency department for evaluation of sudden onset of room spinning dizziness, chest pain, abdominal pain , nausea and vomiting. The symptoms occurred while the patient was in the outpatient ultrasound department, after the materials engineering technician tried to lower her head of the bed in order to perform this study. Patient did not appear well and rapid response was activated. I evaluated the patient in the radiology department had the patient transferred to the emergency department for evaluation. By the time she got to the emergency department her symptoms improved significantly, she no longer felt dizzy and no longer had nausea, vomiting or chest pain. Twelve EKG was obtained the patient has a left bundle-branch block and this is similar to a previous 12 EKG. Patient was given meclizine 25 mg orally. The patient's presentation physical findings are consistent with acute benign paroxysmal positional vertigo and I did discuss this with her. She was given printed and verbal instructions. She was prescribed meclizine. She was advised to contact her doctor to reschedule her quadrant ultrasound. [facility] - Dizziness Medical Records Attestation: I reviewed the patient's medical records. Lab Data Attestation: I reviewed the patient's lab results. ECG Data Attestation: I personally reviewed and interpreted this ECG as follows: Interpretation: 1112: Sinus bradycardia with a rate of 55, prolonged GA interval of 208 milliseconds consistent with a first-degree AV block, prolonged QRS and QTC of 168 milliseconds and 40 milliseconds secondary to left bundle-branch block. Patient has T-wave abnormalities which is consistent with her left bundle-branch block, she has poor R-wave progression V1 through V3. Compared to EKG dated 12/27/2021 the first-degree AV block is new. The prolonged QRS and QTC are old. The left bundle-branch block is old. Discharge Plan Discharge Clinical Impression: Benign paroxysmal positional vertigo Qualifiers: Laterality: unspecified laterality Qualified Code(s): H81.10 - Benign paroxysmal vertigo, unspecified ear Vomiting Qualifiers: Nausea presence: unspecified Patient Disposition: Home, Self-Care Instructions: Benign Paroxysmal Positional Vertigo (ED) Additional Instructions: Your symptoms are consistent with benign positional vertigo (room spinning dizziness that occurs when you change the position of your head). Take meclizine 25 mg pills, 1 pill 3 times a day for the next 3 days for dizziness then as needed for dizziness. This medication will make you sleepy. Do not drive or work while taking this medication. Follow-up with your doctor in 2 days. Please return to the emergency department if your symptoms get worse or if you develop any symptoms that are concerning to you. You should reschedule your carotid arteries ultrasound studies. Prescriptions: No Action nortriptyline 25 mg capsule 2 cap PO BEDTIME albuterol sulfate 90 mcg/actuation HFA aerosol inhaler 2 puff PO QID PRN (Reason: Shortness Of Breath) ezetimibe 10 mg tablet 1 tab PO DAILY budesonide-formoterol [Symbicort] 160-4.5 mcg/actuation HFA aerosol inhaler 1 puff PO BID aspirin 81 mg capsule 81 mg PO DAILY Qty: 30 0RF atorvastatin 40 mg tablet 40 mg PO BEDTIME cholecalciferol (vitamin D3) 25 mcg (1,000 unit) capsule 25 mcg PO DAILY furosemide 20 mg tablet 20 mg PO DAILY amlodipine 10 mg tablet 10 mg PO DAILY lisinopril 40 mg tablet 40 mg PO DAILY Januvia 50 mg tablet 50 mg PO DAILY nateglinide 60 mg tablet 60 mg PO TID Rx Instructions: give before meal(s) metoprolol tartrate 100 mg tablet 200 mg PO BID omeprazole 40 mg capsule,delayed release(DR/EC) 40 mg PO DAILY
[2022-02-27 12:22] VITALS: BP 166/67; PULSE 60; RESP 13; O2SAT 96
--- NOTE | 2022-02-27 12:32 | PC.NURSE ---
Pt was given discharge instructions and the discharge instructions were explained to pt. Pt is alert and oriented, steady gait and is awaiting transportation via the courtesy van in the waiting area.
== END 2022-02-27 12:28 | disposition home or self-care (01) ==
PROVIDERS: Emergency Provider Emergency Medicine Emergency Medical Services; PCP Internal Medicine
DX: H81.10 Benign paroxysmal vertigo, unspecified ear (principal); R11.10 Vomiting, unspecified; R00.1 Bradycardia, unspecified; I44.7 Left bundle-branch block, unspecified; E11.22 Type 2 diabetes mellitus with diabetic chronic kidney disease; I12.9 Hypertensive chronic kidney disease with stage 1 through stage 4 chronic kidney disease, or unspecified chronic kidney disease; N18.30 Chronic kidney disease, stage 3 unspecified; R55 Syncope and collapse; F17.210 Nicotine dependence, cigarettes, uncomplicated; Z79.02 Long term (current) use of antithrombotics/antiplatelets; Z79.899 Other long term (current) drug therapy; Z79.82 Long term (current) use of aspirin
CPT/HCPCS: 93005; 93880; 99284

== ENCOUNTER 2023-01-13 13:36 | Inpatient (IN) | payer MEDICARE, MEDICAID, SELFPAY ==
--- NOTE | ~2023-01-13 | MR_ITS ---
EXAMINATION: MRI WITHOUT AND WITH MRI WITHOUT AND WITH CONTRAST FOOT, LEFT CLINICAL INFORMATION: Osteomyelitis COMPARISON: Radiographs 01/13/2023 TECHNIQUE: MRI without and with intravenous administration of 6 mL of Gadavist is performed on the left foot. Image quality is degraded by patient motion artifact FINDINGS: Marrow edema and enhancement throughout the 1st distal phalanx most prominent at the tuft where there is subtle loss of T1 fatty marrow signal compatible with osteomyelitis. No abscess. Bone marrow signal is otherwise normal. MR/MR foot LT wo/w con IMPRESSION: Mild or early osteomyelitis of the 1st distal phalanx most prominent at the tuft.
--- NOTE | ~2023-01-13 | XR_ITS ---
EXAMINATION: XR TOES, LEFT CLINICAL INFORMATION: Great toe infection with question of osteomyelitis COMPARISON: None available. TECHNIQUE: 3 views of the left first toe were obtained. FINDINGS: There are no fractures or dislocations. Soft tissue swelling is present. There is a question of some air seen in the subcutaneous tissues (See tee image). No definite cortical bone destruction. XR/XR toe LT min 2V IMPRESSION: Soft tissue swelling with question of some air in the subcutaneous tissues. No definite evidence of osteomyelitis. MRI is more sensitive than this exam if clinically important.
--- NOTE | ~2023-01-13 | US_ITS ---
EXAMINATION: NONINVASIVE ASSESSMENT OF THE ARTERIES OF THE LEFT LOWER EXTREMITY Guillermo Blanc MD CLINICAL INFORMATION: Diabetic left foot ulcer with question of peripheral arterial disease TECHNIQUE: Left lower extremity duplex ultrasound was performed with velocity measurements and waveform analysis in the common femoral arteries, profunda femoris arteries, proximal mid and distal superficial femoral arteries, popliteal arteries and tibial vessels. This study was performed only at rest. COMPARISON: CT abdomen pelvis 12/27/2021 FINDINGS: Velocities in cm/sec and phasicity as well as the presence of plaque are reported below. Moderate plaque is present throughout. Biphasic flow is present in the common femoral artery, but monophasic flow is noted throughout the remainder of the left lower extremity LEFT LEG: Common Femoral: 53 Profunda Femoris: 99 Proximal SFA: 182 - a tight stenosis is present in this area. Mid SFA: 38 Distal SFA: 29 Popliteal: 40 Posterior Tibial: 26 Peroneal: 15 US/US arterial duplex LE LT IMPRESSION: There is evidence of peripheral vascular disease with back and monophasic flow present throughout the majority of the left lower extremity. There is a tight stenosis in the proximal SFA with monophasic flow below this. CT angiography would be useful for further evaluation.
[2023-01-13 13:39] VITALS: BP 130/90; PULSE 90; O2SAT 96
[2023-01-13 13:46] VITALS: BP 153/85; PULSE 92; RESP 16; TEMP 36.8; O2SAT 95; BMI 23.6
--- NOTE | 2023-01-13 13:51 | PC.NURSE ---
Alert and oriented.Arrived from home stating 2 weeks ago her grandchild stepped on her toe and she saw a bruise on her toe nail. States was soaking the toe and A & D on it. States now toe is causing her pain and some difficulty walking on her foot. Left great toe, red, swollen, with scant amount of ss drainage. necrotic area to top and planter surface of foot. Able to move all toes with good sensation. Denies sob and fevers.
--- NOTE | 2023-01-13 13:57 | PC.NURSE ---
Patient reports smoking and is a type 2 diabetic
--- NOTE | 2023-01-13 16:08 | MHC.EDTECH ---
Brought patient cup of ice and a cup of water.
--- NOTE | 2023-01-13 16:51 | ED_ITS ---
HPI - General Adult General Chief complaint: General Medical Stated complaint: FELL T+ HEAD/BUTT PAIN INFECTED TOE PER EMS Time Seen by Provider: 01/13/23 16:02 Source: patient Mode of arrival: ambulatory Limitations: no limitations History of Present Illness HPI narrative: 77 yo female with DM presents with left great toe pain and infection. STarted 2 weeks ago. May have had localized trauma. Since, more swelling, pain and discoloration. Symptoms no radiating to left arch. Worse with ambulation and palpation. Feels cold to patient. No f/c/s. No n/v/d, reports sugars as being high. Does not routinely check glucose. Related Data Home Medications Medication Instructions Recorded Confirmed amlodipine 10 mg tablet 10 mg PO DAILY 05/23/20 12/27/21 atorvastatin 40 mg tablet 40 mg PO BEDTIME 05/23/20 12/27/21 cholecalciferol (vitamin D3) 25 25 mcg PO DAILY 05/23/20 12/27/21 mcg (1,000 unit) capsule furosemide 20 mg tablet 20 mg PO DAILY 05/23/20 12/27/21 lisinopril 40 mg tablet 40 mg PO DAILY 05/23/20 12/27/21 metoprolol tartrate 100 mg tablet 200 mg PO BID 05/23/20 12/27/21 nateglinide 60 mg tablet 60 mg PO TID 05/23/20 12/27/21 omeprazole 40 mg capsule,delayed 40 mg PO DAILY 05/23/20 12/27/21 release sitagliptin phosphate 50 mg tablet 50 mg PO DAILY 05/23/20 12/27/21 (Januvia) albuterol sulfate 90 mcg/actuation 2 puff PO QID PRN Shortness Of 12/27/21 12/27/21 aerosol inhaler Breath budesonide-formoterol HFA 160 1 puff PO BID 12/27/21 12/27/21 mcg-4.5 mcg/actuation aerosol inhaler (Symbicort) ezetimibe 10 mg tablet 1 tab PO DAILY 12/27/21 12/27/21 nortriptyline 25 mg capsule 2 cap PO BEDTIME 12/27/21 12/27/21 Previous Rx's Medication Instructions Recorded aspirin 81 mg capsule 81 mg PO DAILY #30 caps 12/28/21 Allergies Allergy/AdvReac Type Severity Reaction Status Date / Time silver Allergy Unknown SKIN TEARS Verified 02/27/22 11:37 [From [employer] AG MESH] TAPE,PAPER Allergy Unknown UNKNOWN Uncoded 02/27/22 11:37 Review of Systems Review of Systems: CONSTITUTIONAL: Denies weight loss, fever and chills. HEENT: Denies changes in vision and hearing. RESPIRATORY: Denies SOB and cough. CV: Denies palpitations no CP. GI: Denies abdominal pain, nausea, vomiting and diarrhea. : Denies dysuria and urinary frequency. MSK: Denies myalgia + joint pain. SKIN: Denies rash and pruritus. NEUROLOGICAL: Denies headache and syncope. PSYCHIATRIC: Denies recent changes in mood. Denies anxiety and depression. All other ROS are negative unless in HPI PMFSH Past Medical History Medical History Carotid artery occlusion CKD (chronic kidney disease) stage 3, GFR 30-59 ml/min Diabetes GERD (gastroesophageal reflux disease) GERD (gastroesophageal reflux disease) Hiatal hernia HTN (hypertension) Surgical History History of esophagogastroduodenoscopy (EGD) Family History Family History Father No problems noted. Mother No problems noted. Social History Social History Household Members: None Alcohol intake: never Patient Tobacco Use Status: Current someday Tobacco user Tobacco use type: Cigarette Cigarette Packs Per Day: 0.5 Cigarettes Per Day: 10.0 Smoked in Last 30 Days: Yes Use of substances other than those prescribed or required for medical reasons: Yes Substance Use Type: Marijuana Substance Use Frequency: Chronic Longstanding Advance Directives: No Advance Directives Information Provided: No Advance Directives Date on File: 12/27/21 service: No Current occupational status: retired Physical Exam ED Vital Signs: Vital Signs - 24 hr 01/13/23 13:46 Temperature 98.3 F Pulse Rate 92 Respiratory Rate 16 Blood Pressure 153/85 H Pulse Oximetry 95 Oxygen Delivery Method Room Air BMI result Body Mass Index 23.6 GEN: Well developed, no acute distress, alert, oriented HEENT: Normocephalic, atraumatic, normal external ears, nose appears normal Eyes: Normal to appearance Neck: Supple, no lymphadenopathy Respiratory: Talks in complete sentences, no respiratory distress Extremities: No clubbing cyanosis or edema Neurologic: No focal neurologic deficits, cranial nerves 2-12 intact, gait normal Skin: No rash, left toe possible cellulitic changes, also with eschar and plantar toe. Vasc: 1+ DP, PT pulses Course Reevaluation(s) Reevaluation #1: The workup is complete. X-ray did not clearly identify osteomyelitis. However, given the nature of the wound, I highly suspect this is in fact the case. I had extensive conversations with the hospitalist and the patient regarding our concerns for possible osteomyelitis, need for debridement, surgery, risk of amputation, sepsis bloodstream infection. Patient is actually quite anxious. I recommended she just take 1 night at a time and she agreed to be a small. She has already received a dose of intravenous antibiotics including Zosyn and vancomycin. Patient understands all concerns and all questions were addressed and answered. She is aware she may require an MRI to further characterize the concern for osteomyelitis. Time: 20:46 Medications Administered Discontinued Medications Generic Name Dose Route Start Last Admin Trade Name Freq PRN Reason Stop Dose Admin Piperacillin Sod/Tazobactam 50 mls @ 100 mls/hr 01/13/23 16:20 01/13/23 19:04 Sod 3.375 gm/ Sodium Chloride IV 01/13/23 16:49 Infused ONCE ONE Infusion Vancomycin HCl 1,250 mg/ 250 mls @ 166.667 mls/hr 01/13/23 16:30 01/13/23 17:46 Sodium Chloride IV 01/13/23 17:59 166.67 mls/hr ONCE ONE Administration Sodium Chloride 1,700.97 mls @ 1,700.97 mls/hr 01/13/23 17:26 01/13/23 17:54 Ns 30 ml/kg infuse over 1 hr (1700.97 ml) 01/13/23 18:25 1,700.97 mls/hr IV Administration .Q1H STA Medical Decision Making Medical Decision Making MDM Narrative: Toe pain: DD: cellulitis, osteomyelitis, wound, fractur, contusion Plan: XR to rulte out osteo, labs inlcuding ESR and CRP, BCx Tx: Vanco and Zosyn Differential Diagnosis Differential Diagnoses: The differential diagnosis associated with the presentation includes (see above) Admission/Observation Consideration of admission/observation: Escalation of care including admission/observation considered Lab Data MDM Lab Attestation statement: I reviewed the patient's lab results. 01/13/23 16:44 01/13/23 17:46 Labs: Lab Results 01/13/23 01/13/23 01/13/23 Range/Units 16:44 16:44 16:44 WBC 11.2 H (4.8-10.8) X10*3/uL RBC 4.55 (4.20-5.50) X10*6/uL Hgb 13.7 (12.0-16.0) g/dl Hct 42.1 (37.0-47.0) % MCV 92.5 (80.0-98.0) fL MCH 30.1 (27.0-33.0) pg MCHC 32.5 (31.0-35.0) g/dl RDW 15.9 (11.0-16.0) % Plt Count 429 H D (160-400) X10*3/uL MPV 9.9 (9.4-12.3) fL Immature Gran % (Auto) 0.4 (0.0-0.4) % Neut % (Auto) 60.5 (45-73) % Lymph % (Auto) 26.9 (20-40) % [place] % (Auto) 9.3 (2-11) % Eos % (Auto) 2.3 (0-4) % Baso % (Auto) 0.6 (0-2) % Lymph # (Auto) 3.0 (1.2-4.9) X10*3/uL [place] # (Auto) 1.0 (0.1-1.2) X10*3/uL Eos # (Auto) 0.3 (0.0-0.4) X10*3/uL Baso # (Auto) 0.1 (0.0-0.2) X10*3/uL Abs Immat Gran (auto) 0.05 H (0.00-0.03) X10*3/uL Absolute Neuts (auto) 6.8 (2.0-8.3) x10*3/uL Absolute Nucleated RBC 0.000 (0.0-0.012) X10*3/uL Nucleated RBC % (auto) 0.0 (0.0-0.2) /100WBC ESR (0-20) MM/HR PT 10.1 (10.0-13.1) SEC INR 0.9 (0.9-1.1) APTT 28.5 (26.0-36.4) SEC Sodium (135-145) mmol/L Potassium (3.3-5.1) mmol/L Chloride (96-108) mmol/L Carbon Dioxide (22-29) mmol/L Anion Gap (12-20) BUN (9-16) mg/dL Creatinine (0.5-1.4) mg/dL Estim Creat Clear Calc Estimated GFR Random Glucose (60-115) mg/dL Lactic Acid 3.2 H* (0.5-2.0) mmol/L Calcium (8.4-10.2) mg/dL C-Reactive Protein (< or = 0.50) mg/dL 01/13/23 01/13/23 Range/Units 16:44 17:46 WBC (4.8-10.8) X10*3/uL RBC (4.20-5.50) X10*6/uL Hgb (12.0-16.0) g/dl Hct (37.0-47.0) % MCV (80.0-98.0) fL MCH (27.0-33.0) pg MCHC (31.0-35.0) g/dl RDW (11.0-16.0) % Plt Count (160-400) X10*3/uL MPV (9.4-12.3) fL Immature Gran % (Auto) (0.0-0.4) % Neut % (Auto) (45-73) % Lymph % (Auto) (20-40) % [place] % (Auto) (2-11) % Eos % (Auto) (0-4) % Baso % (Auto) (0-2) % Lymph # (Auto) (1.2-4.9) X10*3/uL [place] # (Auto) (0.1-1.2) X10*3/uL Eos # (Auto) (0.0-0.4) X10*3/uL Baso # (Auto) (0.0-0.2) X10*3/uL Abs Immat Gran (auto) (0.00-0.03) X10*3/uL Absolute Neuts (auto) (2.0-8.3) x10*3/uL Absolute Nucleated RBC (0.0-0.012) X10*3/uL Nucleated RBC % (auto) (0.0-0.2) /100WBC ESR 73 H (0-20) MM/HR PT (10.0-13.1) SEC INR (0.9-1.1) APTT (26.0-36.4) SEC Sodium 136 (135-145) mmol/L Potassium 3.9 (3.3-5.1) mmol/L Chloride 103 (96-108) mmol/L Carbon Dioxide 21 L (22-29) mmol/L Anion Gap 16 (12-20) BUN 10 (9-16) mg/dL Creatinine 1.22 (0.5-1.4) mg/dL Estim Creat Clear Calc 30.0 Estimated GFR 43 Random Glucose 223 H (60-115) mg/dL Lactic Acid (0.5-2.0) mmol/L Calcium 10.3 H D (8.4-10.2) mg/dL C-Reactive Protein 1.34 H (< or = 0.50) mg/dL Independent Interpretation I performed an independent interpretation of an: Plain X-Ray Prescription Management I considered prescription management with: Pain Medication and Antibiotic Chronic Conditions Patient?s care impacted by: Diabetes Discharge Plan Discharge Clinical Impression: Diabetic foot ulcer Patient Disposition: Admitted As Inpatient Prescriptions: No Action nortriptyline 25 mg capsule 2 cap PO BEDTIME albuterol sulfate 90 mcg/actuation HFA aerosol inhaler 2 puff PO QID PRN (Reason: Shortness Of Breath) ezetimibe 10 mg tablet 1 tab PO DAILY budesonide-formoterol [Symbicort] 160-4.5 mcg/actuation HFA aerosol inhaler 1 puff PO BID aspirin 81 mg capsule 81 mg PO DAILY Qty: 30 0RF atorvastatin 40 mg tablet 40 mg PO BEDTIME cholecalciferol (vitamin D3) 25 mcg (1,000 unit) capsule 25 mcg PO DAILY furosemide 20 mg tablet 20 mg PO DAILY amlodipine 10 mg tablet 10 mg PO DAILY lisinopril 40 mg tablet 40 mg PO DAILY Juluvia 50 mg tablet 50 mg PO DAILY nateglinide 60 mg tablet 60 mg PO TID Rx Instructions: give before meal(s) metoprolol tartrate 100 mg tablet 200 mg PO BID omeprazole 40 mg capsule,delayed release(DR/EC) 40 mg PO DAILY
[2023-01-13 16:57] LABS: MANUAL DIFF FLAG NO
[2023-01-13 17:03] LABS: Basophils Absolute Auto 0.1 X10*3/uL (0.0-0.2); Basophils Percent Auto 0.6 % (0-2); Eosinophils Absolute Auto 0.3 X10*3/uL (0.0-0.4); Eosinophils Percent Auto 2.3 % (0-4); Hematocrit 42.1 % (37.0-47.0); Hemoglobin 13.7 g/dl (12.0-16.0); Imm Gran Abs Auto 0.05 X10*3/uL (0.00-0.03); Imm Gran Pct Auto 0.4 % (0.0-0.4); Lymphocytes Percent Auto 26.9 % (20-40); Mean Corpuscular HGB Conc 32.5 g/dl (31.0-35.0); Mean Corpuscular Hemoglobin 30.1 pg (27.0-33.0); Mean Corpuscular Volume 92.5 fL (80.0-98.0); Mean Platelet Volume 9.9 fL (9.4-12.3); Monocytes Percent Auto 9.3 % (2-11); Neutrophils Absolute Auto 6.8 x10*3/uL (2.0-8.3); Neutrophils Percent Auto 60.5 % (45-73); Platelet Count 429 X10*3/uL (160-400); Red Blood Count 4.55 X10*6/uL (4.20-5.50); Red Cell Distribution Width 15.9 % (11.0-16.0); White Blood Count 11.2 X10*3/uL (4.8-10.8)
[2023-01-13 17:05] LABS: INTERNATIONAL NORM RATIO 0.9 (0.9-1.1); Prothrombin Time 10.1 SEC (10.0-13.1)
[2023-01-13 17:08] LABS: Partial Thromboplastin Time 28.5 SEC (26.0-36.4)
[2023-01-13 17:24] LABS: Lactic Acid 3.2 mmol/L (0.5-2.0)
[2023-01-13] MEDS: Piperacillin Sodium/Tazobactam 3.375 GM in 0.9 % Sodium Chloride 50 ML IV (17:45)
[2023-01-13] MEDS: vancomycin HCL 1,250 MG in 0.9 % Sodium Chloride 250 ML 166.67 MG IV (17:46)
[2023-01-13] MEDS: 0.9 % Sodium Chloride 1,700.97 ML 1700.97 ML IV (17:54)
[2023-01-13 18:04] LABS: Erythrocyte Sedimentation Rate 73 MM/HR (0-20)
[2023-01-13 18:06] LABS: Anion Gap 16 (12-20); Blood Urea Nitrogen 10 mg/dL (9-16); C Reactive Protein 1.34 mg/dL (< or = 0.50); Calcium 10.3 mg/dL (8.4-10.2); Carbon Dioxide 21 mmol/L (22-29); Chloride 103 mmol/L (96-108); Estimated Glomerular Filt Rate 43; Glucose Random 223 mg/dL (60-115); Potassium 3.9 mmol/L (3.3-5.1); Sodium 136 mmol/L (135-145)
[2023-01-13 18:56] LABS: Reflex Lactate? Lactic Acid Added
--- NOTE | 2023-01-13 21:05 | P.HPHOSP_ITS ---
patient with diabetic ulcer, concerning for possible osteomyelitis, will obtain MRI, IV antibiotics, for full H&P please see below History of Present Illness Date of Service: 01/13/23 Attending physician on admission: Silvano Harris Chief Complaint: toe infection 77-year-old female with history of coronary artery disease, carotid artery occlusion, [id number]-lldgrtpwz type 2 diabetes, GERD, hypertension, and CKD stage 3 who is a current 1/2 pack per day smoker and marijuana user who presented to the ED earlier today for evaluation of left great toe pain with suspected infection. She states there may have been some trauma, feels she may have stepped on something several weeks ago and has developed a wound on the left great toe which has gradually been enlarging and has become increasingly painful. She has poor balance at baseline ambulates with a cane but states her balance has been worse due to the wound. She denies any fevers, chills, or purulent drainage. Has never had similar wound or infection. On arrival, VSS. There is a mild leukocytosis of 11.2. Creatinine 1.22, BUN 10, creatinine clearance 30, electrolyte levels normal. Initial lactic acid 3.2. CRP 1.34, ESR 73. XR of the left great toe shows soft tissue swelling with question of some air in the subcutaneous tissues but no definitive evidence of osteomyelitis. In the ED, was given 1700 mL IV fluids, IV Zosyn, and IV vancomycin. Pt is also noted to be incredibly anxious and tearful. Very overwhelmed by the situation. Discussion had with ED provider, myself, and patient to discuss need for inpt admission and pt ultimately agreeable. However, endorses significant anxiety about this. Reassurance offered. Review of Systems Review of Systems: General: No fevers, malaise, unintentional weight loss HEENT: No blurred vision, diplopia. No sore throat, nasal congestion, rhinorrhea, sinus pain, ear pain Cardiovascular: No chest pain, palpitations, or leg edema Respiratory: No shortness of breath, wheezing, cough GI: No abdominal pain, nausea, vomiting, diarrhea, constipation, melena, h ematochezia : No dysuria, hematuria, increased urinary frequency, decreased urinary output MSK: No myalgia, back pain Neuro: No headaches, weakness, paresthesias Psych: +anxiety/depression. No SI Skin: No rashes. +toe ulcer [facility] Medical History (Updated 01/13/23 @ 21:14 by KARI Crocker) CAD (coronary artery disease) Carotid artery occlusion CKD (chronic kidney disease) stage 3, GFR 30-59 ml/min Diabetes GERD (gastroesophageal reflux disease) GERD (gastroesophageal reflux disease) Hiatal hernia HTN (hypertension) Family History Father No problems noted. Mother No problems noted. Surgical History History of esophagogastroduodenoscopy (EGD) Social History Household Members: None Alcohol intake: never Patient Tobacco Use Status: Current someday Tobacco user Tobacco use type: Cigarette Cigarette Packs Per Day: 0.5 Cigarettes Per Day: 10.0 Smoked in Last 30 Days: Yes Use of substances other than those prescribed or required for medical reasons: Yes Substance Use Type: Marijuana Substance Use Frequency: Chronic Longstanding Advance Directives: No Advance Directives Information Provided: No Advance Directives Date on File: 12/27/21 service: No Current occupational status: retired Meds Allergies Allergy/AdvReac Type Severity Reaction Status Date / Time silver Allergy Unknown SKIN TEARS Verified 02/27/22 11:37 [From [employer]] TAPE,PAPER Allergy Unknown UNKNOWN Uncoded 02/27/22 11:37 Home Medications Medication Instructions Recorded Confirmed Last Taken Type amlodipine 10 mg tablet 10 mg PO DAILY 05/23/20 01/13/23 01/13/23 09:00 History atorvastatin 40 mg tablet 40 mg PO BEDTIME 05/23/20 01/13/23 01/12/23 History cholecalciferol (vitamin D3) 25 25 mcg PO DAILY 05/23/20 01/13/23 01/13/23 09:00 History mcg (1,000 unit) capsule lisinopril 40 mg tablet 40 mg PO DAILY 05/23/20 01/13/23 01/13/23 09:00 History metoprolol tartrate 100 mg tablet 200 mg PO BID 05/23/20 01/13/23 01/13/23 09:00 History nateglinide 60 mg tablet 60 mg PO TIDAC 05/23/20 01/13/23 01/13/23 09:00 History omeprazole 40 mg capsule,delayed 40 mg PO DAILY@0630 05/23/20 01/13/23 01/13/23 06:30 History release sitagliptin phosphate 50 mg tablet 50 mg PO DAILY 05/23/20 01/13/23 01/13/23 09:00 History (Narciso) budesonide-formoterol HFA 160 1 puff PO BID PRN Shortness Of 12/27/21 01/13/23 0 12/27/21 History mcg-4.5 mcg/actuation aerosol Breath Or Wheezing inhaler (Symbicort) nortriptyline 25 mg capsule 1 cap PO BEDTIME PRN Back Pain / 12/27/21 01/13/23 12/26/21 History foot pain aspirin 81 mg tablet,delayed 81 mg PO DAILY 01/13/23 01/13/23 01/13/23 09:00 History release dapagliflozin propanediol 5 mg 5 mg PO DAILY 01/13/23 01/13/23 01/13/23 09:00 History tablet (Farxiga) Physical Exam Vital Signs and Narrative: Vital Signs: Last Vital Signs Temp 98.3 F 01/13/23 13:46 Pulse 92 01/13/23 13:46 Resp 16 01/13/23 13:46 BP 153/85 H 01/13/23 13:46 Pulse Ox 95 01/13/23 13:46 O2 Del Method Room Air 01/13/23 13:46 BMI result Body Mass Index 23.6 Constitutional - Awake and Alert, No apparent distress Eyes - PERRLA, EOMI Cardiovascular - S1S2, RRR, No edema Respiratory - Normal lung expansion, Normal respiratory effort, No respiratory distress, CTA bilaterally Gastrointestinal - NT / ND; +BS; No rebound or guarding Extremities - no calf tenderness bilaterally, no swelling. Eschar covering the medial and plantar surface of the left great rose with dusky erythema surrounding on on plantar surface of remaining left toes. Cool left foot with 1+ dorsalis pedis pulse Skin - Warm/Dry. Neurological - Alert & oriented x3 Psychological - tearful, anxious, hopeless/depressed mood Results Labs 01/13/23 16:44 01/13/23 17:46 Labs: Laboratory Results - last 24 hr 01/13/23 01/13/23 01/13/23 16:44 16:44 16:44 MCV 92.5 MCH 30.1 MCHC 32.5 RDW 15.9 Plt Count 429 H D MPV 9.9 Immature Gran % (Auto) 0.4 Neut % (Auto) 60.5 Lymph % (Auto) 26.9 [place] % (Auto) 9.3 Eos % (Auto) 2.3 Baso % (Auto) 0.6 Lymph # (Auto) 3.0 [place] # (Auto) 1.0 Eos # (Auto) 0.3 Baso # (Auto) 0.1 Abs Immat Gran (auto) 0.05 H Absolute Neuts (auto) 6.8 Absolute Nucleated RBC 0.000 Nucleated RBC % (auto) 0.0 ESR PT 10.1 INR 0.9 APTT 28.5 Anion Gap Estim Creat Clear Calc Estimated GFR Random Glucose Lactic Acid 3.2 H* Calcium C-Reactive Protein 01/13/23 01/13/23 16:44 17:46 MCV MCH MCHC RDW Plt Count MPV Immature Gran % (Auto) Neut % (Auto) Lymph % (Auto) [place] % (Auto) Eos % (Auto) Baso % (Auto) Lymph # (Auto) [place] # (Auto) Eos # (Auto) Baso # (Auto) Abs Immat Gran (auto) Absolute Neuts (auto) Absolute Nucleated RBC Nucleated RBC % (auto) ESR 73 H PT INR APTT Anion Gap 16 Estim Creat Clear Calc 30.0 Estimated GFR 43 Random Glucose 223 H Lactic Acid Calcium 10.3 H D C-Reactive Protein 1.34 H Imaging Radiologist's Impressions: Impressions Toe X-Ray 01/13/23 17:10 IMPRESSION: Soft tissue swelling with question of some air in the subcutaneous tissues. No definite evidence of osteomyelitis. MRI is more sensitive than this exam if clinically important. Assessment and Plan (1) Diabetic foot ulcer: Status: Acute Plan 77-year-old female with history of coronary artery disease, carotid artery occlusion, yre-rsarbne-tcxjzfdip type 2 diabetes, GERD, hypertension, and CKD stage 3 who is a current 1/2 pack per day smoker and marijuana user admitted for infected diabetic foot ulcer of the left great toe with concern for osteomyelitis. #Acute infected unstageable ulcer left great toe due to uncontrolled diabetes -WBC 11.2, VSS. No sepsis -XR negative for osteo. ESR 73, CRP 1.7. Will check MRI foot w/ contrast given concern for osteomyelitis -IV vanco and cefepime -ID consult if osteo present on MRI -General surgery consult- would likely benefit from debridement -LLE arterial doppler pending -Follow CBC, cultures # zhp-mdbpdjz-hcgpuomye type 2 diabetes with hyperglycemia -hemoglobin A1c pending -hold oral antihyperglycemics. Consider stopping farxiga given foot ulcer -POC glucose -diabetic diet -Humalog on sliding scale -consider adding basal insulin if glucose remains elevated # hypertension -continue amlodipine, metoprolol, lisinopril # coronary artery disease -no anginal chest pain -continue aspirin, statin, beta-hilda # CKD stage 3 -renal function baseline DVT prophylaxis-Lovenox renally dosed For DNR/DNI Patient requires inpatient stay at least 2 midnights for management of infected diabetic foot ulcer requiring IV antibiotics and probable surgical debridement as well as concern for osteomyelitis requiring further imaging and possible long-term antibiotics with expert consultation Time Spent With Patient Time: Total time managing care of this patient today ____ minutes. Quality Stroke Does the patient have a stroke diagnosis?: No VTE Prior VTE?: No VTE Risk Level:: Medical - moderate - high VTE Device Contraindication: Treatment Not Indicated VTE Drug Contraindication: N/A - Med Ordered
--- NOTE | 2023-01-13 21:22 | PHA.MEDREC ---
Pharmacy Consult ? Medication Reconciliation Pharmacy has completed the medication reconciliation. Spoke to patient to confirm meds.
[2023-01-13 21:34] VITALS: BP 194/87; PULSE 94; RESP 18; TEMP 36.6; O2SAT 95
--- NOTE | 2023-01-13 21:36 | PC.NURSE ---
pt arrived from main ed. c/o toe pain, ultrasound by bedside
[2023-01-13] MEDS: Acetaminophen 325 MG TABLET 650 MG PO (21:48)
[2023-01-13] MEDS: LORazepam 0.5 MG TABLET PO (21:49)
[2023-01-13] MEDS: cefEPime HCl 2 GM in 0.9 % Sodium Chloride 50 ML IV (21:50)
--- NOTE | 2023-01-13 21:59 | PC.NURSE ---
pt transferred from Main ed, c/o pain medicated
[2023-01-13 22:24] LABS: ~Lactic Acid-LAB USE ONLY 1.3 mmol/L (0.5-2.0)
[2023-01-14] MEDS: 0.9 % Sodium Chloride Flush 3 ML SYRINGE IVFLUSH ×3 (00:13→16:01)
[2023-01-14 05:39] LABS: MANUAL DIFF FLAG NO
[2023-01-14 05:44] LABS: Basophils Absolute Auto 0.1 X10*3/uL (0.0-0.2); Basophils Percent Auto 0.7 % (0-2); Eosinophils Absolute Auto 0.2 X10*3/uL (0.0-0.4); Eosinophils Percent Auto 2.2 % (0-4); Hemoglobin 11.9 g/dl (12.0-16.0); Imm Gran Abs Auto 0.03 X10*3/uL (0.00-0.03); Imm Gran Pct Auto 0.3 % (0.0-0.4); Lymphocytes Absolute Auto 2.9 X10*3/uL (1.2-4.9); Lymphocytes Percent Auto 29.1 % (20-40); Mean Corpuscular HGB Conc 33.1 g/dl (31.0-35.0); Mean Corpuscular Hemoglobin 30.4 pg (27.0-33.0); Mean Corpuscular Volume 92.1 fL (80.0-98.0); Mean Platelet Volume 9.7 fL (9.4-12.3); Monocytes Percent Auto 10.2 % (2-11); Neutrophils Absolute Auto 5.8 x10*3/uL (2.0-8.3); Neutrophils Percent Auto 57.5 % (45-73); Platelet Count 398 X10*3/uL (160-400); Red Blood Count 3.91 X10*6/uL (4.20-5.50); Red Cell Distribution Width 15.9 % (11.0-16.0)
[2023-01-14 06:07] LABS: Anion Gap 16 (12-20); Blood Urea Nitrogen 9 mg/dL (9-16); Calcium 9.2 mg/dL (8.4-10.2); Carbon Dioxide 20 mmol/L (22-29); Chloride 108 mmol/L (96-108); Creatinine Clr Calc Pharmacy 36.3; Estimated Glomerular Filt Rate 53; Glucose Random 134 mg/dL (60-115); Potassium 3.6 mmol/L (3.3-5.1); Sodium 140 mmol/L (135-145)
[2023-01-14 06:16] VITALS: BP 155/81; PULSE 91; TEMP 36.6; O2SAT 94
[2023-01-14 07:22] LABS: Glucose, Whole Blood 132 mg/dL (60-115)
[2023-01-14 07:40] LABS: Estimated Average Glucose 220 mg/dL; Hemoglobin A1c % 9.3 %
[2023-01-14] MEDS: cefEPime HCl 2 GM in 0.9 % Sodium Chloride 50 ML IV ×2 (07:52→20:42)
--- NOTE | 2023-01-14 07:52 | P.CONGS_ITS ---
History of Present Illness Consult details Consult date: 01/14/23 Narrative: 77-year-old female with multiple medical problems including coronary disease, carotid artery disease, tobacco use, diabetes, admitted because of a big toe ulcer. She says that she had noticed this for over a month now. She thinks that this was after she had stepped on a sharp object. She had noticed persiste nt pain and discoloration. She denies any fever or chills. She denies any history of similar problems in other toes in the past Review of Systems Constitutional: Constitutional: Denies chills and Denies fever(s) Cardiovascular: Cardiovascular: Denies chest pain, Reports dyspnea and Reports dyspnea on exertion Respiratory: Respiratory: Denies cough, Reports dyspnea and Reports dyspnea on exertion Gastrointestinal: Gastrointestinal: Denies hematochezia and Denies change in bowel habits Genitourinary: Genitourinary: Denies hematuria Musculoskeletal: Musculoskeletal: Denies back pain and Denies limited range of motion Neurologic: Denies focal weakness and Denies convulsions Psychiatric: Psychiatric: Denies depression and Denies mood swings [facility] Past Medical History Medical History CAD (coronary artery disease) Carotid artery occlusion CKD (chronic kidney disease) stage 3, GFR 30-59 ml/min Diabetes GERD (gastroesophageal reflux disease) GERD (gastroesophageal reflux disease) Hiatal hernia HTN (hypertension) Family History Family History Father No problems noted. Mother No problems noted. Surgical History Surgical History History of esophagogastroduodenoscopy (EGD) Social History Social History Household Members: None Housing: Apartment Do you presently have visiting nurse or other home services: No Alcohol intake: never Patient Tobacco Use Status: Never used Tobacco Tobacco use type: Cigarette Cigarette Packs Per Day: 0.5 Cigarettes Per Day: 10.0 Substance Use Type: Marijuana Advance Directives Date on File: 01/14/23 service: No Current occupational status: retired Meds Allergies Allergy/AdvReac Type Severity Reaction Status Date / Time silver Allergy Unknown SKIN TEARS Verified 02/27/22 11:37 [From [employer]] TAPE,PAPER Allergy Unknown UNKNOWN Uncoded 02/27/22 11:37 Active Medications: Current Medications Acetaminophen (Acetaminophen 325 Mg Tablet) 650 mg PO Q6H PRN PRN Reason: Pain, Mild (Pain Scale 1-3) Last Admin: 01/13/23 21:48 Dose: 650 mg Dextrose (Dextrose 50 % 25 Gm/50 Ml Syringe) 25 gm IVPUSH Q15M PRN; Protocol PRN Reason: per Hypoglycemia Standing Ord. Docusate Sodium (Docusate Sodium 100 Mg Capsule) 100 mg PO DAILY PRN PRN Reason: Constipation Glucose (Glucose Gel 15 Gm Gel..Gram.) 15 gm PO Q15M PRN; Protocol PRN Reason: per Hypoglycemia Standing Ord. Cefepime HCl 2 gm/ Sodium (Chloride) 50 mls @ 100 mls/hr IV Q12H [facility] Last Infusion: 01/13/23 22:29 Dose: Infused Vancomycin HCl 750 mg/ Sodium (Chloride) 265 mls @ 265 mls/hr IV Q24H [facility] Insulin Human Lispro (Insulin Lispro 100 Unit/Ml 3 Ml Vial) 0 unit SUBCUT QIDACHS [facility]; Protocol Last Admin: 01/14/23 07:23 Dose: Not Given Lorazepam (Lorazepam 0.5 Mg Tablet) 0.5 mg PO DAILY PRN PRN Reason: Anxiety Last Admin: 01/13/23 21:49 Dose: 0.5 mg Ondansetron HCl (Ondansetron Hcl 4 Mg/2 Ml Vial) 4 mg IVPUSH Q8H PRN PRN Reason: Nausea and Vomiting Pharmacy Consult (Consult Rx Vancomycin Dosing) 1 each MISCELLANE DAILY PRN PRN Reason: Consult order Sodium Chloride (0.9 % Sodium Chloride Flush 3 Ml Syringe) [facility] Last Admin: 01/14/23 00:13 Dose: 3 ml Home Medications Medication Instructions Recorded Confirmed Last Taken Type amlodipine 10 mg tablet 10 mg PO DAILY 05/23/20 01/13/23 01/13/23 09:00 History atorvastatin 40 mg tablet 40 mg PO BEDTIME 05/23/20 01/13/23 01/12/23 History cholecalciferol (vitamin D3) 25 25 mcg PO DAILY 05/23/20 01/13/23 01/13/23 09:00 History mcg (1,000 unit) capsule lisinopril 40 mg tablet 40 mg PO DAILY 05/23/20 01/13/23 01/13/23 09:00 History metoprolol tartrate 100 mg tablet 200 mg PO BID 05/23/20 01/13/23 01/13/23 09:00 History nateglinide 60 mg tablet 60 mg PO TIDAC 05/23/20 01/13/23 01/13/23 09:00 History omeprazole 40 mg capsule,delayed 40 mg PO DAILY@0630 05/23/20 01/13/23 01/13/23 06:30 History release sitagliptin phosphate 50 mg tablet 50 mg PO DAILY 05/23/20 01/13/23 01/13/23 09:00 History (Narciso) budesonide-formoterol HFA 160 1 puff PO BID PRN Shortness Of 12/27/21 01/13/23 12/27/21 History mcg-4.5 mcg/actuation aerosol Breath Or Wheezing inhaler (Symbicort) nortriptyline 25 mg capsule 1 cap PO BEDTIME PRN Back Pain / 12/27/21 01/13/23 12/26/21 History foot pain aspirin 81 mg tablet,delayed 81 mg PO DAILY 01/13/23 01/13/23 01/13/23 09:00 History release dapagliflozin propanediol 5 mg 5 mg PO DAILY 01/13/23 01/13/23 01/13/23 09:00 History tablet (Farxiga) Physical Exam Vital Signs: Vital Signs: Last Vital Signs Temp 97.8 F 01/14/23 06:16 Pulse 91 01/14/23 06:16 Resp 18 01/13/23 21:34 BP 155/81 H 01/14/23 06:16 Pulse Ox 94 01/14/23 06:16 O2 Del Method Room Air 01/14/23 06:16 BMI result Body Mass Index 23.6 Const: General: comfortable and no acute distress Orientation/consciousnes s: patient oriented x3 Neck: Neck: Yes no lymphadenopathy Resp: Auscultation: clear to auscultation bilaterally Cardio: Rhythm: regular rhythm GI: Palpation (GI): Soft to palpation, nontender and no guarding Neuro: General: patient oriented x3 Extrem: Other: Left big toe with eschar on the plantar aspect, about 2 x 2.5 cm, tender, no obvious pus, foot cold to touch, unable to appreciate distal pulses Results Labs 01/14/23 05:29 01/14/23 05:29 Labs: Abnormal lab results 01/13/23 01/13/23 01/13/23 Range/Units 16:44 16:44 16:44 WBC 11.2 H (4.8-10.8) X10*3/uL RBC (4.20-5.50) X10*6/uL Hgb (12.0-16.0) g/dl Hct (37.0-47.0) % Plt Count 429 H D (160-400) X10*3/uL Abs Immat Gran (auto) 0.05 H (0.00-0.03) X10*3/uL ESR 73 H (0-20) MM/HR Carbon Dioxide (22-29) mmol/L POC Glucose (60-115) mg/dL Random Glucose (60-115) mg/dL Lactic Acid 3.2 H* (0.5-2.0) mmol/L Calcium (8.4-10.2) mg/dL C-Reactive Protein (< or = 0.50) mg/dL 01/13/23 01/14/23 01/14/23 Range/Units 17:46 05:29 05:29 WBC (4.8-10.8) X10*3/uL RBC 3.91 L (4.20-5.50) X10*6/uL Hgb 11.9 L (12.0-16.0) g/dl Hct 36.0 L (37.0-47.0) % Plt Count (160-400) X10*3/uL Abs Immat Gran (auto) (0.00-0.03) X10*3/uL ESR (0-20) MM/HR Carbon Dioxide 21 L 20 L (22-29) mmol/L POC Glucose (60-115) mg/dL Random Glucose 223 H 134 H (60-115) mg/dL Lactic Acid (0.5-2.0) mmol/L Calcium 10.3 H D (8.4-10.2) mg/dL C-Reactive Protein 1.34 H (< or = 0.50) mg/dL 01/14/23 Range/Units 07:14 WBC (4.8-10.8) X10*3/uL RBC (4.20-5.50) X10*6/uL Hgb (12.0-16.0) g/dl Hct (37.0-47.0) % Plt Count (160-400) X10*3/uL Abs Immat Gran (auto) (0.00-0.03) X10*3/uL ESR (0-20) MM/HR Carbon Dioxide (22-29) mmol/L POC Glucose 132 H (60-115) mg/dL Random Glucose (60-115) mg/dL Lactic Acid (0.5-2.0) mmol/L Calcium (8.4-10.2) mg/dL C-Reactive Protein (< or = 0.50) mg/dL Short CBC 01/13/23 01/14/23 Range/Units 16:44 05:29 WBC 11.2 H 10.0 (4.8-10.8) X10*3/uL Hgb 13.7 11.9 L (12.0-16.0) g/dl Hct 42.1 36.0 L (37.0-47.0) % Plt Count 429 H D 398 (160-400) X10*3/uL BMP 01/13/23 01/14/23 17:46 05:29 Sodium 136 140 Potassium 3.9 3.6 Chloride 103 108 Carbon Dioxide 21 L 20 L BUN 10 9 Creatinine 1.22 1.01 Calcium 10.3 H D 9.2 D All other labs normal. Assessment and Plan (1) Diabetic foot ulcer: Status: Acute She has an ulcer with a dry eschar on the big toe on the left side as described above. In view of her history, I would recommend a vascular surgery evaluation. She will need at least some debridement to allow healing down the line. She has been started on antibiotics. She otherwise looks comfortable and is non toxic looking. Time Spent With Patient Time: Total time managing care of this patient today ____ minutes. Procedures Date of Service Date of Service: 01/16/23
--- NOTE | 2023-01-14 08:48 | MHC.EDTECH ---
Assisted patient to/from restroom using a wheel chair. Hannah Zuniga
--- NOTE | 2023-01-14 09:51 | HO.PM.IMPN ---
Subjective Subjective Date of Service: 01/14/23 Review of Systems Follow diabetic foot ulcer Has some pain and neuropathy Reporting feeling very depressed and anxious Physical Exam Vital Signs: Vital Signs: Last Vital Signs Temp 97.8 F 01/14/23 06:16 Pulse 91 01/14/23 06:16 Resp 18 01/13/23 21:34 BP 155/81 H 01/14/23 06:16 Pulse Ox 94 01/14/23 06:16 O2 Del Method Room Air 01/14/23 06:16 BMI result Body Mass Index 23.6 Appearing in no acute distress Left great toe with black eschar to plantar aspect no drainage noted lung sounds are clear to auscultation heart regular rate rhythm, clear S1, S2 positive bowel sounds, abdomen is soft, nontender neuro patient is alert x3, no focal deficits Objective Data Active Medications Acetaminophen (Acetaminophen 325 Mg Tablet) 650 mg PO Q6H PRN PRN Reason: Pain, Mild (Pain Scale 1-3) Last Admin: 01/13/23 21:48 Dose: 650 mg Documented By: CHRISTELLE Dextrose (Dextrose 50 % 25 Gm/50 Ml Syringe) 25 gm IVPUSH Q15M PRN; Protocol PRN Reason: per Hypoglycemia Standing Ord. Docusate Sodium (Docusate Sodium 100 Mg Capsule) 100 mg PO DAILY PRN PRN Reason: Constipation Glucose (Glucose Gel 15 Gm Gel..Gram.) 15 gm PO Q15M PRN; Protocol PRN Reason: per Hypoglycemia Standing Ord. Cefepime HCl 2 gm/ Sodium (Chloride) 50 mls @ 100 mls/hr IV Q12H [facility] Last Infusion: 01/14/23 08:55 Dose: 0 mls/hr Documented By: ROULA Vancomycin HCl 750 mg/ Sodium (Chloride) 265 mls @ 265 mls/hr IV Q24H [facility] Insulin Human Lispro (Insulin Lispro 100 Unit/Ml 3 Ml Vial) 0 unit SUBCUT QIDACHS [facility]; Protocol Last Admin: 01/14/23 07:23 Dose: Not Given Documented By: ROULA Non-Admin Reason: No Insulin Coverage Lorazepam (Lorazepam 0.5 Mg Tablet) 0.5 mg PO DAILY PRN PRN Reason: Anxiety Last Admin: 01/13/23 21:49 Dose: 0.5 mg Documented By: CHRISTELLE Ondansetron HCl (Ondansetron Hcl 4 Mg/2 Ml Vial) 4 mg IVPUSH Q8H PRN PRN Reason: Nausea and Vomiting Pharmacy Consult (Consult Rx Vancomycin Dosing) 1 each MISCELLANE DAILY PRN PRN Reason: Consult order Sodium Chloride (0.9 % Sodium Chloride Flush 3 Ml Syringe) 3 ml IVFLUSH QSHIFT [facility] Last Admin: 01/14/23 07:55 Dose: 3 ml Documented By: ROULA Labs 01/14/23 05:29 01/14/23 05:29 Labs: Laboratory Results - last 24 hr 01/13/23 01/13/23 01/13/23 16:44 16:44 16:44 MCV 92.5 MCH 30.1 MCHC 32.5 RDW 15.9 Plt Count 429 H D MPV 9.9 Immature Gran % (Auto) 0.4 Neut % (Auto) 60.5 Lymph % (Auto) 26.9 [place] % (Auto) 9.3 Eos % (Auto) 2.3 Baso % (Auto) 0.6 Lymph # (Auto) 3.0 [place] # (Auto) 1.0 Eos # (Auto) 0.3 Baso # (Auto) 0.1 Abs Immat Gran (auto) 0.05 H Absolute Neuts (auto) 6.8 Absolute Nucleated RBC 0.000 Nucleated RBC % (auto) 0.0 ESR PT 10.1 INR 0.9 APTT 28.5 Anion Gap Estim Creat Clear Calc Estimated GFR POC Glucose Random Glucose Estimat Average Glucose Hemoglobin A1c % Lactic Acid 3.2 H* Lactic Acid F/U @ 2Hr Calcium C-Reactive Protein 01/13/23 01/13/23 01/13/23 16:44 16:44 17:46 MCV MCH MCHC RDW Plt Count MPV Immature Gran % (Auto) Neut % (Auto) Lymph % (Auto) [place] % (Auto) Eos % (Auto) Baso % (Auto) Lymph # (Auto) [place] # (Auto) Eos # (Auto) Baso # (Auto) Abs Immat Gran (auto) Absolute Neuts (auto) Absolute Nucleated RBC Nucleated RBC % (auto) ESR 73 H PT INR APTT Anion Gap 16 Estim Creat Clear Calc 30.0 Estimated GFR 43 POC Glucose Random Glucose 223 H Estimat Average Glucose 220 Hemoglobin A1c % 9.3 Lactic Acid Lactic Acid F/U @ 2Hr Calcium 10.3 H D C-Reactive Protein 1.34 H 01/13/23 01/14/23 01/14/23 22:01 05:29 05:29 MCV 92.1 MCH 30.4 MCHC 33.1 RDW 15.9 Plt Count 398 MPV 9.7 Immature Gran % (Auto) 0.3 Neut % (Auto) 57.5 Lymph % (Auto) 29.1 [place] % (Auto) 10.2 Eos % (Auto) 2.2 Baso % (Auto) 0.7 Lymph # (Auto) 2.9 [place] # (Auto) 1.0 Eos # (Auto) 0.2 Baso # (Auto) 0.1 Abs Immat Gran (auto) 0.03 Absolute Neuts (auto) 5.8 Absolute Nucleated RBC 0.000 Nucleated RBC % (auto) 0.0 ESR PT INR APTT Anion Gap 16 Estim Creat Clear Calc 36.3 Estimated GFR 53 POC Glucose Random Glucose 134 H Estimat Average Glucose Hemoglobin A1c % Lactic Acid Lactic Acid F/U @ 2Hr 1.3 Calcium 9.2 D C-Reactive Protein 01/14/23 07:14 MCV MCH MCHC RDW Plt Count MPV Immature Gran % (Auto) Neut % (Auto) Lymph % (Auto) [place] % (Auto) Eos % (Auto) Baso % (Auto) Lymph # (Auto) [place] # (Auto) Eos # (Auto) Baso # (Auto) Abs Immat Gran (auto) Absolute Neuts (auto) Absolute Nucleated RBC Nucleated RBC % (auto) ESR PT INR APTT Anion Gap Estim Creat Clear Calc Estimated GFR POC Glucose 132 H Random Glucose Estimat Average Glucose Hemoglobin A1c % Lactic Acid Lactic Acid F/U @ 2Hr Calcium C-Reactive Protein Assessment and Plan (1) Diabetic foot ulcer: Status: Acute Plan 77-year-old female with history of coronary artery disease, carotid artery occlusion, [id number] type 2 diabetes, GERD, hypertension, and CKD stage 3 who is a current 1/2 pack per day smoker and marijuana user admitted for infected diabetic foot ulcer of the left great toe with concern for osteomyelitis. Acute infected unstageable ulcer left great toe due to uncontrolled diabetes WBC 11.2, VSS. No sepsis ESR 73, CRP 1.7. IV vanco and cefepime General surgery consult- would likely benefit from debridement LLE arterial doppler> peripheral vascular disease with back and monophasic flow present throughout the majority of the left lower extremity, tight stenosis in the proximal SFA with monophasic flow, vascular surgery consultation Will check MRI foot w/ contrast given concern for osteomyelitis [id number] type 2 diabetes with hyperglycemia A1C 9.3 needs better control ss, ada diet hypertension continue amlodipine, metoprolol, lisinopril coronary artery disease no anginal chest pain continue aspirin, statin, beta-hilda CKD stage 3 renal function baseline DVT prophylaxis-Lovenox renally dosed For DNR/DNI Attending Dr. Purvis continued hospital management of infected diabetic foot ulcer requiring IV antibiotics and probable surgical debridement as well as concern for osteomyelitis requiring further imaging and possible long-term antibiotics with expert consultation Time Spent With Patient Time: Total time managing care of this patient today ____ minutes. Quality Stroke Does the patient have a stroke diagnosis?: No VTE Prior VTE?: No VTE Risk Level:: Medical - moderate - high VTE Device Contraindication: Treatment Not Indicated VTE Drug Contraindication: N/A - Med Ordered
--- NOTE | 2023-01-14 11:38 | MHC.CM.PN ---
Met with patient in regards to discharge planning. Patient lives alone, ambulates independently and had no services prior to coming to the hospital. PCP verified. HCP completed, signed and witnessed. Original given to patient. Copy placed in chart. IMM explained and signed. Patient has tried to used [facility] in the past for medical appointments. However, she feels they have not shown up or haven't stayed long enough for patient to get out of the house. Transportation resources offered and declined by patient. Patient will need assistance with transport at discharge because her daughter also does not drive. Patient is vaxxed and boosted x2 against Covid. Continue to monitor for d/c needs.
--- NOTE | 2023-01-14 11:42 | PM.CNGS ---
History of Present Illness Consult details Consult date: 01/14/23 Reason for consult: wound care Narrative: Very pleasant 77-year-old female presents for evaluation regarding nonhealing left great toe ulcer. She reports that it began over a month ago and she felt like she stepped on something. She had been taking meticulous care by herself with Epson salt soaks. There was no significant improvement. It got significantly painful for her. She presented to the emergency room with concerns of infection of that great toe. In addition she had noninvasive arterial testing which was concerning for peripheral vascular disease. Of note she does smoke about a half a pack per day, and she is a diabetic Review of Systems Review of Systems: Yes all other systems are reviewed and are negative Constitutional: Constitutional: Reports no additional constitutional complaints ENT: Reports Normal hearing present Cardiovascular: Cardiovascular: Denies chest pain, Denies chest pain at rest, Denies chest pain with activity and Denies pedal edema Respiratory: Respiratory: Denies cough Gastrointestinal: Gastrointestinal: Denies abdominal pain Musculoskeletal: Musculoskeletal: Denies abnormal gait, Denies muscle cramps and Denies radiating pain into limb Integumentary/Breasts: Skin/Breast: Denies skin ulcer and Denies wounds Neurologic: Reports Normal hearing present and Denies abnormal gait Psychiatric: Psychiatric: Reports no additional psychiatric complaints PMFSH Past Medical History Medical History CAD (coronary artery disease) Carotid artery occlusion CKD (chronic kidney disease) stage 3, GFR 30-59 ml/min Diabetes GERD (gastroesophageal reflux disease) GERD (gastroesophageal reflux disease) Hiatal hernia HTN (hypertension) Family History Family History Father No problems noted. Mother No problems noted. Surgical History Surgical History History of esophagogastroduodenoscopy (EGD) Social History Social History Household Members: None Alcohol intake: never Patient Tobacco Use Status: Current someday Tobacco user Tobacco use type: Cigarette Cigarette Packs Per Day: 0.5 Cigarettes Per Day: 10.0 Smoked in Last 30 Days: Yes Use of substances other than those prescribed or required for medical reasons: No Substance Use Type: Marijuana Substance Use Frequency: Chronic Longstanding Advance Directives: No Advance Directives Information Provided: No Advance Directives Date on File: 12/27/21 service: No Current occupational status: retired Meds Allergies Allergy/AdvReac Type Severity Reaction Status Date / Time silver Allergy Unknown SKIN TEARS Verified 02/27/22 11:37 [From TEGADERM AG MESH] TAPE,PAPER Allergy Unknown UNKNOWN Uncoded 02/27/22 11:37 Active Medications: Current Medications Acetaminophen (Acetaminophen 325 Mg Tablet) 650 mg PO Q6H PRN PRN Reason: Pain, Mild (Pain Scale 1-3) Last Admin: 01/13/23 21:48 Dose: 650 mg Dextrose (Dextrose 50 % 25 Gm/50 Ml Syringe) 25 gm IVPUSH Q15M PRN; Protocol PRN Reason: per Hypoglycemia Standing Ord. Docusate Sodium (Docusate Sodium 100 Mg Capsule) 100 mg PO DAILY PRN PRN Reason: Constipation Glucose (Glucose Gel 15 Gm Gel..Gram.) 15 gm PO Q15M PRN; Protocol PRN Reason: per Hypoglycemia Standing Ord. Cefepime HCl 2 gm/ Sodium (Chloride) 50 mls @ 100 mls/hr IV Q12H [facility] Last Infusion: 01/14/23 08:55 Dose: Infused Vancomycin HCl 750 mg/ Sodium (Chloride) 265 mls @ 265 mls/hr IV Q24H [facility] Insulin Human Lispro (Insulin Lispro 100 Unit/Ml 3 Ml Vial) 0 unit SUBCUT QIDACHS [facility]; Protocol Last Admin: 01/14/23 07:23 Dose: Not Given Lorazepam (Lorazepam 0.5 Mg Tablet) 0.5 mg PO DAILY PRN PRN Reason: Anxiety Last Admin: 01/13/23 21:49 Dose: 0.5 mg Ondansetron HCl (Ondansetron Hcl 4 Mg/2 Ml Vial) 4 mg IVPUSH Q8H PRN PRN Reason: Nausea and Vomiting Pharmacy Consult (Consult Rx Vancomycin Dosing) 1 each MISCELLANE DAILY PRN PRN Reason: Consult order Sodium Chloride (0.9 % Sodium Chloride Flush 3 Ml Syringe) 3 ml IVFLUSH [facility] Last Admin: 01/14/23 07:55 Dose: 3 ml Home Medications Medication Instructions Recorded Confirmed Last Taken Type amlodipine 10 mg tablet 10 mg PO DAILY 05/23/20 01/13/23 01/13/23 09:00 History atorvastatin 40 mg tablet 40 mg PO BEDTIME 05/23/20 01/13/23 01/12/23 History cholecalciferol (vitamin D3) 25 25 mcg PO DAILY 05/23/20 01/13/23 01/13/23 09:00 History mcg (1,000 unit) capsule lisinopril 40 mg tablet 40 mg PO DAILY 05/23/20 01/13/23 01/13/23 09:00 History metoprolol tartrate 100 mg tablet 200 mg PO BID 05/23/20 01/13/23 01/13/23 09:00 History nateglinide 60 mg tablet 60 mg PO TIDAC 05/23/20 01/13/23 01/13/23 09:00 History omeprazole 40 mg capsule,delayed 40 mg PO DAILY@0630 05/23/20 01/13/23 01/13/23 06:30 History release sitagliptin phosphate 50 mg tablet 50 mg PO DAILY 05/23/20 01/13/23 01/13/23 09:00 History (Narciso) budesonide-formoterol HFA 160 1 puff PO BID PRN Shortness Of 12/27/21 01/13/23 12/27/21 History mcg-4.5 mcg/actuation aerosol Breath Or Wheezing inhaler (Symbicort) nortriptyline 25 mg capsule 1 cap PO BEDTIME PRN Back Pain / 12/27/21 01/13/23 12/26/21 History foot pain aspirin 81 mg tablet,delayed 81 mg PO DAILY 01/13/23 01/13/23 01/13/23 09:00 History release dapagliflozin propanediol 5 mg 5 mg PO DAILY 01/13/23 01/13/23 01/13/23 09:00 History tablet (Farxiga) Physical Exam Vital Signs: Vital Signs: Last Vital Signs Temp 97.8 F 01/14/23 06:16 Pulse 91 01/14/23 06:16 Resp 18 01/13/23 21:34 BP 155/81 H 01/14/23 06:16 Pulse Ox 94 01/14/23 06:16 O2 Del Method Room Air 01/14/23 06:16 BMI result Body Mass Index 23.6 Const: General: cooperative, healthy appearing and comfortable Orientation/consciousness: oriented to person, oriented to place and oriented to time HEENT: Head: Yes normal to inspection Neck: Neck: Yes normal visual inspection Carotids: no bruits Chest: Chest palpation & inspection: normal inspection of the chest Resp: Effort & Inspection: normal respiratory effort and able to speak in complete sentences Auscultation: clear to auscultation bilaterally, no crackles, no rales, no rhonchi and no wheezes Cardio: Other: Bilateral DP signals Rate: regular rate Rhythm: regular rhythm Heart sounds: S1 normal heart sound present and S2 normal heart sound present Bruits: no carotid bruits Peripheral pulses: Peripheral pulses 2+ throughout GI: Inspection: Yes normal to inspection Skin: Other: Left great toe dry eschar on the plantar aspect 2 cm in diameter. Wounds: no wounds Hair: normal Neuro: General: oriented to person, oriented to place and oriented to time Cranial nerves: Yes CN's II-XII intact bilaterally and Yes Normal hearing present Cognition (Neuro): normal cognition Motor exam (neuro): 5/5 motor strength present throughout Extrem: Other: venous exam: No significant superficial varicosities or spider telangiectasias, minimal edema General: No clubbing, No cyanosis and No edema Psych: Appearance: grossly normal Mental Status: mental status grossly normal Speech and movement: Normal speech and movement present Results Labs 01/14/23 05:29 01/14/23 05:29 Labs: Abnormal lab results 01/13/23 01/13/23 01/13/23 Range/Units 16:44 16:44 16:44 WBC 11.2 H (4.8-10.8) X10*3/uL RBC (4.20-5.50) X10*6/uL Hgb (12.0-16.0) g/dl Hct (37.0-47.0) % Plt Count 429 H D (160-400) X10*3/uL Abs Immat Gran (auto) 0.05 H (0.00-0.03) X10*3/uL ESR 73 H (0-20) MM/HR Carbon Dioxide (22-29) mmol/L POC Glucose (60-115) mg/dL Random Glucose (60-115) mg/dL Lactic Acid 3.2 H* (0.5-2.0) mmol/L Calcium (8.4-10.2) mg/dL C-Reactive Protein (< or = 0.50) mg/dL 01/13/23 01/14/23 01/14/23 Range/Units 17:46 05:29 05:29 WBC (4.8-10.8) X10*3/uL RBC 3.91 L (4.20-5.50) X10*6/uL Hgb 11.9 L (12.0-16.0) g/dl Hct 36.0 L (37.0-47.0) % Plt Count (160-400) X10*3/uL Abs Immat Gran (auto) (0.00-0.03) X10*3/uL ESR (0-20) MM/HR Carbon Dioxide 21 L 20 L (22-29) mmol/L POC Glucose (60-115) mg/dL Random Glucose 223 H 134 H (60-115) mg/dL Lactic Acid (0.5-2.0) mmol/L Calcium 10.3 H D (8.4-10.2) mg/dL C-Reactive Protein 1.34 H (< or = 0.50) mg/dL 01/14/23 Range/Units 07:14 WBC (4.8-10.8) X10*3/uL RBC (4.20-5.50) X10*6/uL Hgb (12.0-16.0) g/dl Hct (37.0-47.0) % Plt Count (160-400) X10*3/uL Abs Immat Gran (auto) (0.00-0.03) X10*3/uL ESR (0-20) MM/HR Carbon Dioxide (22-29) mmol/L POC Glucose 132 H (60-115) mg/dL Random Glucose (60-115) mg/dL Lactic Acid (0.5-2.0) mmol/L Calcium (8.4-10.2) mg/dL C-Reactive Protein (< or = 0.50) mg/dL Short CBC 01/13/23 01/14/23 Range/Units 16:44 05:29 WBC 11.2 H 10.0 (4.8-10.8) X10*3/uL Hgb 13.7 11.9 L (12.0-16.0) g/dl Hct 42.1 36.0 L (37.0-47.0) % Plt Count 429 H D 398 (160-400) X10*3/uL BMP 01/13/23 01/14/23 17:46 05:29 Sodium 136 140 Potassium 3.9 3.6 Chloride 103 108 Carbon Dioxide 21 L 20 L BUN 10 9 Creatinine 1.22 1.01 Calcium 10.3 H D 9.2 D All other labs normal. Imaging Additional studies: Noninvasive arterial testing is concerning for SFA disease. Written report and images were reviewed. Assessment and Plan (1) PAD (peripheral artery disease): Status: Acute Plan Patient has a nonhealing left great toe ulcer. I have discussed the pathophysiology of peripheral vascular disease with the patient. I have also discussed risk factor modification. I have reviewed the patient's arterial testing which reveals left leg SFA disease. the patient would benefit from a left leg endovascular peripheral angiogram with possible angioplasty, stent, and/or atherectomy. This has been discussed in detail with the patient along with risks, benefits, and complications. This includes but is not limited to bleeding, infection, heart attack, need for emergent surgical repair, limb ischemia, blood vessel damage, bleeding, puncture, kidney injury, bruising, allergic reaction, and skin reaction. The patient demonstrates a clear understanding. We will schedule for the next appropriate time. Thank you for allowing us to assist in this patient's care. Time Spent With Patient Time: Total time managing care of this patient today ____ minutes. Procedures Date of Service Date of Service: 01/14/23
[2023-01-14 11:45] LABS: Glucose, Whole Blood 186 mg/dL (60-115)
[2023-01-14] MEDS: Insulin Lispro 100 UNIT/ML 3 ML VIAL SUBCUT ×2 (11:48→20:42)
[2023-01-14 12:57] VITALS: BP 116/72; PULSE 122; RESP 20; O2SAT 96
[2023-01-14] MEDS: Morphine Sulfate 2 MG/ML CARTRIDGE IVPUSH ×2 (12:57→21:02)
[2023-01-14 14:43] VITALS: BP 132/76; PULSE 132; RESP 20; TEMP 37.1; O2SAT 94
[2023-01-14] MEDS: LORazepam 0.5 MG TABLET PO (14:52)
--- NOTE | 2023-01-14 16:42 | PM.PSYCN ---
History of Present Illness Date of Service: 01/14/2023 <Orin Styles NP - Last Filed: 01/14/23 17:06> Chief Complaint: diabetic foot ulcer,LEFT LEG <Orin Styles NP - Last Filed: 01/14/23 17:06> Reason for Consult: Increased anxiety and depression. Medication Eval. <Orin Styles NP - Last Filed: 01/14/23 17:06> Requesting physician: Blaire Champagne <Orin Styles NP - Last Filed: 01/14/23 17:06> Discussed with referring provider: Yes <Orin Styles NP - Last Filed: 01/14/23 17:06> Sources of Information: patient interviewed and chart reviewed <Orin Styles NP - Last Filed: 01/14/23 17:06> HPI Narrative: Patient is a 77-year-old female with history of coronary artery disease, carotid artery occlusion, mkt-xystujm-jetkpuhts type 2 diabetes, GERD, hypertension, and CKD stage 3 who is a current 1/2 pack per day smoker and marijuana user who presented to the ED for evaluation of left great toe pain with suspected infection. Consult was placed for increased anxiety and depression with possible need for medication. During interview patient presents as calm and cooperative. Patient tearful at times during 1:1. She expressed feeling sad because I'm used to always being independent . Patient reports she is finding it more difficult to leave her home d/t lack of transportation and increased pain throughout her body. Patient states she used to have a therapist at [facility] and would take Zoloft daily but stopped d/t her symptoms improving. She reports she would be interested in having a therapist again who would be able to do in-home therapy d/t her lack of transportation. Ms. Iraheta reports her mood becomging depressed and having difficulty sleeping over the last couple months; she believes she would benefit from an antidepressant and reliable transportation to bring her to her appointment and shopping. Patient denies SI/HI. Case reviewed with Dr. Saxena. <Orin Styles NP - Last Filed: 01/14/23 17:06> Patient is a 77-year-old female with history of coronary artery disease, carotid artery occlusion, awe-reuhmid-ntcaqyygp type 2 diabetes, GERD, hypertension, and CKD stage 3 who is a current 1/2 pack per day smoker and marijuana user who presented to the ED for evaluation of left great toe pain with suspected infection. Consult was placed for increased anxiety and depression with possible need for medication. During interview patient presents as calm and cooperative. Patient tearful at times during 1:1. She expressed feeling sad because I'm used to always being independent . Patient reports she is finding it more difficult to leave her home d/t lack of transportation and increased pain throughout her body. Patient states she used to have a therapist at [facility] and would take Zoloft daily but stopped d/t her symptoms improving. She reports she would be interested in having a therapist again who would be able to do in-home therapy d/t her lack of transportation. Ms. Iraheta reports her mood becomging depressed and having difficulty sleeping over the last couple months; she believes she would benefit from an antidepressant and reliable transportation to bring her to her appointment and shopping. Patient denies SI/HI. Case reviewed with Dr. Saxena. <Matt Saxena MD - Last Filed: 01/14/23 17:34> Past Psychiatric History: Patient reports she previously was taking Zoloft and stopped because I felt better . Used to see therapist at [facility]. <Orin Styles NP - Last Filed: 01/14/23 17:06> Review of Systems Constitutional: Reports as per HPI <Orin Styles WEB OFFSET PRESS FEEDER - Last Filed: 01/14/23 17:06> Eyes: Reports as per HPI <Orin Styles NP - Last Filed: 01/14/23 17:06> Reports as per HPI <Orin Styles WEB OFFSET PRESS FEEDER - Last Filed: 01/14/23 17:06> Cardiovascular: Reports as per HPI <Orin Styles NP - Last Filed: 01/14/23 17:06> Respiratory: Reports as per HPI <Orin Styles NP - Last Filed: 01/14/23 17:06> Gastrointestinal: Reports as per HPI <Orin Styles WEB OFFSET PRESS FEEDER - Last Filed: 01/14/23 17:06> Genitourinary: Reports as per HPI <Orin Styles NP - Last Filed: 01/14/23 17:06> Musculoskeletal: Reports as per HPI <Orin Styles NP - Last Filed: 01/14/23 17:06> Skin/Breast: Reports as per HPI <Orin Styles NP - Last Filed: 01/14/23 17:06> Reports as per HPI <Orin Styles WEB OFFSET PRESS FEEDER - Last Filed: 01/14/23 17:06> Psychiatric: Reports as per HPI <Orin Styles NP - Last Filed: 01/14/23 17:06> Endocrine: Reports as per HPI <Orin Styles NP - Last Filed: 01/14/23 17:06> Hematologic/Lymphatic: Reports as per HPI <Orin Styles NP - Last Filed: 01/14/23 17:06> Allergic/Immunologic: Reports as per HPI <Orin Styles NP - Last Filed: 01/14/23 17:06> [facility] Medical History: Medical History CAD (coronary artery disease) Carotid artery occlusion CKD (chronic kidney disease) stage 3, GFR 30-59 ml/min Diabetes GERD (gastroesophageal reflux disease) GERD (gastroesophageal reflux disease) Hiatal hernia HTN (hypertension) <Orin Styles NP - Last Filed: 01/14/23 17:06> Surgical History: Surgical History History of esophagogastroduodenoscopy (EGD) <Orin Styles NP - Last Filed: 01/14/23 17:06> Family History: unknown <Orin Styles NP - Last Filed: 01/14/23 17:06> Social History: Lives alone. <Orin Styles NP - Last Filed: 01/14/23 17:06> Lives alone. PATIENT LIVES IN SUBSIDIZED HOUSING does not drive uses public transportation has had some involvement with Elder Services. Close with a daughter who lives nearby and a granddaughter her daughter also does not have a car <Matt Saxena MD - Last Filed: 01/14/23 17:34> Substance History: Marijuana <Orin Styles NP - Last Filed: 01/14/23 17:06> Marijuana PAST HISTORY OF HEAVIER ALCOHOL USE SOBER 10 YEARS <Matt Saxena MD - Last Filed: 01/14/23 17:34> Trauma History: unknown <Orin Styles NP - Last Filed: 01/14/23 17:06> Diagnostics Vital Signs (24Hr): Vital Signs - 24 hr 01/13/23 21:34 01/14/23 06:16 01/14/23 12:57 Temperature 97.8 F 97.8 F Pulse Rate 94 91 122 H Respiratory Rate 18 20 Blood Pressure 194/87 H 155/81 H 116/72 Pulse Oximetry 95 94 96 Oxygen Delivery Method Room Air Room Air Room Air 01/14/23 14:43 Temperature 98.7 F Pulse Rate 132 H Respiratory Rate 20 Blood Pressure 132/76 Pulse Oximetry 94 Oxygen Delivery Method Room Air BMI result Body Mass Index 23.6 <Orin Styles NP - Last Filed: 01/14/23 17:06> Labs Results: 01/14/23 05:29 01/14/23 05:29 <Orin Styles NP - Last Filed: 01/14/23 17:06> Labs: Laboratory Results - last 48 hr 01/13/23 01/13/23 01/13/23 16:44 16:44 16:44 WBC 11.2 H RBC 4.55 Hgb 13.7 Hct 42.1 MCV 92.5 MCH 30.1 MCHC 32.5 RDW 15.9 Plt Count 429 H D MPV 9.9 Immature Gran % (Auto) 0.4 Neut % (Auto) 60.5 Lymph % (Auto) 26.9 Hughes % (Auto) 9.3 Eos % (Auto) 2.3 Baso % (Auto) 0.6 Lymph # (Auto) 3.0 Hughes # (Auto) 1.0 Eos # (Auto) 0.3 Baso # (Auto) 0.1 Abs Immat Gran (auto) 0.05 H Absolute Neuts (auto) 6.8 Absolute Nucleated RBC 0.000 Nucleated RBC % (auto) 0.0 ESR PT 10.1 INR 0.9 APTT 28.5 Sodium Potassium Chloride Carbon Dioxide Anion Gap BUN Creatinine Estim Creat Clear Calc Estimated GFR POC Glucose Random Glucose Estimat Average Glucose Hemoglobin A1c % Lactic Acid 3.2 H* Lactic Acid F/U @ 2Hr Calcium C-Reactive Protein 01/13/23 01/13/23 01/13/23 16:44 16:44 17:46 WBC RBC Hgb Hct MCV MCH MCHC RDW Plt Count MPV Immature Gran % (Auto) Neut % (Auto) Lymph % (Auto) Hughes % (Auto) Eos % (Auto) Baso % (Auto) Lymph # (Auto) Hughes # (Auto) Eos # (Auto) Baso # (Auto) Abs Immat Gran (auto) Absolute Neuts (auto) Absolute Nucleated RBC Nucleated RBC % (auto) ESR 73 H PT INR APTT Sodium 136 Potassium 3.9 Chloride 103 Carbon Dioxide 21 L Anion Gap 16 BUN 10 Creatinine 1.22 Estim Creat Clear Calc 30.0 Estimated GFR 43 POC Glucose Random Glucose 223 H Estimat Average Glucose 220 Hemoglobin A1c % 9.3 Lactic Acid Lactic Acid F/U @ 2Hr Calcium 10.3 H D C-Reactive Protein 1.34 H 01/13/23 01/14/23 01/14/23 22:01 05:29 05:29 WBC 10.0 RBC 3.91 L Hgb 11.9 L Hct 36.0 L MCV 92.1 MCH 30.4 MCHC 33.1 RDW 15.9 Plt Count 398 MPV 9.7 Immature Gran % (Auto) 0.3 Neut % (Auto) 57.5 Lymph % (Auto) 29.1 Hughes % (Auto) 10.2 Eos % (Auto) 2.2 Baso % (Auto) 0.7 Lymph # (Auto) 2.9 Hughes # (Auto) 1.0 Eos # (Auto) 0.2 Baso # (Auto) 0.1 Abs Immat Gran (auto) 0.03 Absolute Neuts (auto) 5.8 Absolute Nucleated RBC 0.000 Nucleated RBC % (auto) 0.0 ESR PT INR APTT Sodium 140 Potassium 3.6 Chloride 108 Carbon Dioxide 20 L Anion Gap 16 BUN 9 Creatinine 1.01 Estim Creat Clear Calc 36.3 Estimated GFR 53 POC Glucose Random Glucose 134 H Estimat Average Glucose Hemoglobin A1c % Lactic Acid Lactic Acid F/U @ 2Hr 1.3 Calcium 9.2 D C-Reactive Protein 01/14/23 01/14/23 07:14 11:40 WBC RBC Hgb Hct MCV MCH MCHC RDW Plt Count MPV Immature Gran % (Auto) Neut % (Auto) Lymph % (Auto) Hughes % (Auto) Eos % (Auto) Baso % (Auto) Lymph # (Auto) Hughes # (Auto) Eos # (Auto) Baso # (Auto) Abs Immat Gran (auto) Absolute Neuts (auto) Absolute Nucleated RBC Nucleated RBC % (auto) ESR PT INR APTT Sodium Potassium Chloride Carbon Dioxide Anion Gap BUN Creatinine Estim Creat Clear Calc Estimated GFR POC Glucose 132 H 186 H Random Glucose Estimat Average Glucose Hemoglobin A1c % Lactic Acid Lactic Acid F/U @ 2Hr Calcium C-Reactive Protein <Orin Styles NP - Last Filed: 01/14/23 17:06> Imaging Radiology Impressions: ITS Impressions Toe X-Ray 01/13/23 17:10 IMPRESSION: Soft tissue swelling with question of some air in the subcutaneous tissues. No definite evidence of osteomyelitis. MRI is more sensitive than this exam if clinically important. Duplex Scan Lower Extremity Artery 01/13/23 21:42 IMPRESSION: There is evidence of peripheral vascular disease with back and monophasic flow present throughout the majority of the left lower extremity. There is a tight stenosis in the proximal SFA with monophasic flow below this. CT angiography would be useful for further evaluation. <Orin Styles NP - Last Filed: 01/14/23 17:06> Mental Status Exam Mental Status Exam Narrative: Pt is alert and oriented; behavior is cooperative, friendly and calm; patient is not in distress; dressed in casual attire; mood is described as okay ; eye contact appropriate; Speech is normal rate, volume and prosody and not pressured; no psychomotor agitation/retardation present; thought process is organized; Thought content is on tx; otherwise pertinent to relevant topics and without any delusional content, paranoid ideations or grandiosity; denies any SI/HI. There is no evidence of perceptual disturbance. Patients insight and judgment are fair. <Orin Styles NP - Last Filed: 01/14/23 17:06> Pt is alert and oriented; behavior is cooperative, friendly and calm; she does become tearful at times feeling overwhelmed and isolated; dressed in casual attire; mood is described as okay but clearly depressed affect appropriate to mood good eye contact ; Speech is normal rate, volume and prosody and not pressured; no psychomotor agitation/retardation present; thought process is organized; Thought content is on tx ; otherwise pertinent to relevant topics and without any delusional content, paranoid ideations or grandiosity; denies any SI/HI. There is no evidence of perceptual disturbance. Patients insight and judgment are fair. Has limited transportation judgment regarding needing to seek medical care was clearly off and she is open to help from Elder Services would probably benefit at least from [facility] <Matt Saxena MD - Last Filed: 01/14/23 17:34> Medications Medications Current Medications Acetaminophen (Acetaminophen 325 Mg Tablet) 650 mg PO Q6H PRN PRN Reason: Pain, Mild (Pain Scale 1-3) Last Admin: 01/13/23 21:48 Dose: 650 mg Amlodipine Besylate (Amlodipine Besylate 10 Mg Tablet) 10 mg PO DAILY EMMANUEL; Protocol Atorvastatin Calcium (Atorvastatin Calcium 40 Mg Tablet) 40 mg PO BEDTIME EMMANUEL Dextrose (Dextrose 50 % 25 Gm/50 Ml Syringe) 25 gm IVPUSH Q15M PRN; Protocol PRN Reason: per Hypoglycemia Standing Ord. Docusate Sodium (Docusate Sodium 100 Mg Capsule) 100 mg PO DAILY PRN PRN Reason: Constipation Glucose (Glucose Gel 15 Gm Gel..Gram.) 15 gm PO Q15M PRN; Protocol PRN Reason: per Hypoglycemia Standing Ord. Cefepime HCl 2 gm/ Sodium (Chloride) 50 mls @ 100 mls/hr IV Q12H EMMANUEL Last Infusion: 01/14/23 08:55 Dose: Infused Vancomycin HCl 750 mg/ Sodium (Chloride) 265 mls @ 265 mls/hr IV Q24H EMMANUEL Sodium Chloride (Ns) 1,000 mls @ 100 mls/hr IVCONT .Q10H [facility] Insulin Human Lispro (Insulin Lispro 100 Unit/Ml 3 Ml Vial) 0 unit SUBCUT QIDACHS EMMANUEL; Protocol Last Admin: 01/14/23 11:48 Dose: 2 unit Lisinopril (Lisinopril 40 Mg Tablet) 40 mg PO DAILY EMMANUEL; Protocol Lorazepam (Lorazepam 0.5 Mg Tablet) 0.5 mg PO DAILY PRN PRN Reason: Anxiety Last Admin: 01/14/23 14:52 Dose: 0.5 mg Metoprolol Tartrate (Metoprolol Tartrate 100 Mg Tablet) 200 mg PO BID EMMANUEL; Protocol Morphine Sulfate (Morphine Sulfate 2 Mg/Ml Cartridge) 2 mg IVPUSH Q4H PRN; Protocol PRN Reason: Pain, Mild (Pain Scale 1-3) Last Admin: 01/14/23 12:57 Dose: 2 mg Nortriptyline HCl (Nortriptyline Hcl 25 Mg Capsule) 25 mg PO BEDTIME PRN PRN Reason: Back Pain / foot pain Omeprazole (Omeprazole 40 Mg Capsule.Dr) 40 mg PO DAILY@0630 [facility] Ondansetron HCl (Ondansetron Hcl 4 Mg/2 Ml Vial) 4 mg IVPUSH Q8H PRN PRN Reason: Nausea and Vomiting Pharmacy Consult (Consult Rx Vancomycin Dosing) 1 each MISCELLANE DAILY PRN PRN Reason: Consult order Sodium Chloride (0.9 % Sodium Chloride Flush 3 Ml Syringe) 3 ml IVFLUSH QSHIFT [facility] Last Admin: 01/14/23 16:01 Dose: 3 ml Vitamin D (Cholecalciferol (Vitamin D3) 25 Mcg Tablet) 25 mcg PO DAILY [facility] <Orin Styles NP - Last Filed: 01/14/23 17:06> Allergies Allergies Allergy/AdvReac Type Severity Reaction Status Date / Time silver Allergy Unknown SKIN TEARS Verified 02/27/22 11:37 [From TEGADERM AG MESH] TAPE,PAPER Allergy Unknown UNKNOWN Uncoded 02/27/22 11:37 <Orin Styles NP - Last Filed: 01/14/23 17:06> Assessment & Plan Assessment & Plan (1) Adjustment disorder: Status: Acute <Orin Styles NP - Last Filed: 01/14/23 17:06> Code(s): F43.20 - Adjustment disorder, unspecified <Orin Styles NP - Last Filed: 01/14/23 17:06> (2) Major depressive disorder, recurrent, moderate: Status: Acute <Orin Styles NP - Last Filed: 01/14/23 17:06> Code(s): F33.1 - Major depressive disorder, recurrent, moderate <Orin Styles NP - Last Filed: 01/14/23 17:06> Assessment and Plan: Patient is a 77-year-old female with history of coronary artery disease, carotid artery occlusion, kja-swfkssr-dkmaeucgo type 2 diabetes, GERD, hypertension, and CKD stage 3 who is a current 1/2 pack per day smoker and marijuana user who presented to the ED for evaluation of left great toe pain with suspected infection. Consult was placed for increased anxiety and depression with possible need for medication. Recommendations: Referral to in-home therapy if possible. Re-evaluation for elder services for help with transportation. Start on Mirtazapine 7.5mg PO bedtime to help with depression/sleep. Patient does not meet inpatient level of care at this time. <Orin Styles NP - Last Filed: 01/14/23 17:06> Patient is a 77-year-old female with history of coronary artery disease, carotid artery occlusion, sld-oqitgnx-nrdtuucag type 2 diabetes, GERD, hypertension, and CKD stage 3 who is a current 1/2 pack per day smoker and marijuana user who presented to the ED for evaluation of left great toe pain with suspected infection. Consult was placed for increased anxiety and depression with possible need for medication. Recommendations: Referral to in-home therapy if possible. Re-evaluation for elder services for help with transportation and assistance with other home services. Unclear if patient will need PT OT Her medical care may be being limited by her ability to access transportation and ability to deal with technology. No cellphone no computer. Patient would benefit from help managing this. Elder care out reach would be helpful Start on Mirtazapine 7.5mg PO bedtime to help with depression/sleep. Patient does not meet inpatient level of care at this time, but would clearly benefit from outpatient care. Recommend case management referral to [facility] which does have a should be office and the patient does live in [place] and understands where the office is. Check B12 folate TSH <Matt Saxena MD - Last Filed: 01/14/23 17:34> Total time managing care of this patient today _30___ minutes. <Orin Styles NP - Last Filed: 01/14/23 17:06> Total time managing care of this patient today _45___ minutes. Patient was seen personally by Beth Styles np and by Dr. Saxena <Matt Saxena MD - Last Filed: 01/14/23 17:34> Patient educated on: diagnosis, medication risk/benefits and therapeutic strategies <Orin Styles NP - Last Filed: 01/14/23 17:06> Informed Consent: understands <Orin Styles NP - Last Filed: 01/14/23 17:06>
[2023-01-14 16:52] LABS: Glucose, Whole Blood 118 mg/dL (60-115)
[2023-01-14] MEDS: vancomycin HCL 750 MG in 0.9 % Sodium Chloride 250 ML 265 MG IV (18:07)
[2023-01-14 20:23] VITALS: BP 149/73; PULSE 144; RESP 18; TEMP 36.6; O2SAT 95
[2023-01-14 20:23] LABS: Glucose, Whole Blood 154 mg/dL (60-115)
[2023-01-14] MEDS: Atorvastatin Calcium 40 MG TABLET PO (20:41)
[2023-01-14] MEDS: Metoprolol Tartrate 100 MG TABLET 200 MG PO (20:41)
[2023-01-14] MEDS: ondansetron HCL 4 MG/2 ML VIAL IVPUSH (20:52)
[2023-01-14 21:18] LABS: Appearance Urine Cloudy; Color Urine Yellow; Glucose Urine UA >=1000 mg/dL (Negative); Leukocyte Esterase Urine Negative (Negative); Nitrite Urine Negative (Negative); PH 5.5 (5.0-9.0); Specific Gravity - Urine 1.015 (1.005-1.025); UMIC TRIGGER UACC YES; Urine Blood Negative (Negative); Urine Ketones 15 mg/dL (Negative); Urine Protein 300 (3+) mg/dL (Neg-Trace)
[2023-01-14 21:23] LABS: Bacteria Urine None Seen (None Seen); RBC Urine 0-2 /HPF (0-2); Squamous Epithelial Cell Urine >20 /HPF (0-2); WBC Urine 0-5 /HPF (0-5)
--- NOTE | 2023-01-14 21:26 | PC.NURSE ---
alert, assisted to bathroom via rolling walker, gait slow but steady. NPO after midnight for procedure in AM. speech clear. A/Ox4. safety reinforced/cont to monitor.
[2023-01-14 22:00] VITALS: PULSE 88; RESP 20; O2SAT 97
[2023-01-15] VITALS (16 sets, daily range): BP systolic 120–168; BP diastolic 50–88; PULSE 76–90; RESP 12–20; TEMP 36.1–36.7; O2SAT 94–100; BMI 23.6
--- NOTE | 2023-01-15 04:40 | PC.NURSE ---
slept well overnight. no distress. safety reinsured.
[2023-01-15] MEDS: Omeprazole 40 MG CAPSULE.DR PO (05:50)
[2023-01-15 07:31] LABS: Anion Gap 16 (12-20); Blood Urea Nitrogen 9 mg/dL (9-16); Calcium 9.2 mg/dL (8.4-10.2); Carbon Dioxide 21 mmol/L (22-29); Chloride 107 mmol/L (96-108); Creatinine Clr Calc Pharmacy 42.2; Estimated Glomerular Filt Rate > 60; Glucose Random 78 mg/dL (60-115); Potassium 3.6 mmol/L (3.3-5.1); Sodium 140 mmol/L (135-145)
[2023-01-15 07:35] LABS: Creatinine Clr Calc Pharmacy 41.1; Estimated Glomerular Filt Rate > 60
[2023-01-15 07:43] LABS: Glucose, Whole Blood 96 mg/dL (60-115)
[2023-01-15 07:52] LABS: TSH reflex Free T4 1.35 uIU/mL (0.32-4.0)
[2023-01-15 08:06] LABS: Folate 14.8 ng/mL (> or = 4.0); Vitamin B12 382 pg/mL (200-900)
[2023-01-15] MEDS: cefEPime HCl 2 GM in 0.9 % Sodium Chloride 50 ML IV ×2 (08:08→22:07)
[2023-01-15] MEDS: 0.9 % Sodium Chloride Flush 3 ML SYRINGE IVFLUSH ×2 (08:09→22:08)
[2023-01-15] MEDS: Metoprolol Tartrate 100 MG TABLET 200 MG PO ×2 (08:09→22:07)
[2023-01-15] MEDS: amLODIPine Besylate 10 MG TABLET PO (08:09)
[2023-01-15] MEDS: Cholecalciferol (Vitamin D3) 25 MCG TABLET PO (08:09)
[2023-01-15] MEDS: lisinopriL 40 MG TABLET PO (08:09)
[2023-01-15] MEDS: 0.9 % Sodium Chloride 1,000 ML 100 ML IVCONT ×2 (08:10→18:12)
[2023-01-15] MEDS: Acetaminophen 325 MG TABLET 650 MG PO (09:54)
[2023-01-15 11:22] LABS: Glucose, Whole Blood 110 mg/dL (60-115)
[2023-01-15] MEDS: LORazepam 0.5 MG TABLET PO (11:23)
--- NOTE | 2023-01-15 12:05 | PC.NURSE ---
abrasion noted to b/l knees ankles left arm bruising noted to arms and legs pt sts fell on thursday denies loc
--- NOTE | 2023-01-15 12:07 | PC.NURSE ---
left side necrotic great toe noted
--- NOTE | 2023-01-15 15:05 | P.OP_ITS ---
Operative Note Operative Note Date of Service: 01/15/23 Narrative: Angiogram report from [facility] Preoperative diagnosis: Atherosclerosis of left lower extremity with nonhealing ulcer Postoperative diagnosis: Same Procedure: 1. Ultrasound-guided right common femoral access 2. Aortogram with left lower extremity runoff 3. Left SFA atherectomy and plasty 4. Left external iliac plasty and stent placement Surgeon:Cole Mcginnis M.D., FACS, RPVI Motorcycle Delivery Driver:None Anesthesia: Local with moderate conscious sedation. Total intraservice moderate sedation time was 47 minutes. I monitored the patient's level of consciousness and physiologic status continuously throughout the procedure. Specimens:none Drains:none Estimated blood loss: Less than 10 ml Implant: Medtronic Impact DCB 5 x 150; Medtronic visi Pro 6 x 37 Indications: Pleasant 77-year-old female who presented to the hospital with nonhealing left great toe ulcer. Upon workup with noninvasive arterial testing was noted to have SFA disease. She now presents for endovascular intervention. The patient has signed the informed consent after reviewing risks, complications, benefits, and alternatives previously discussed with the patient. The patient was given the opportunity to ask any additional questions or voice any concerns. All questions were answered to the patient's satisfaction. Procedure in detail: Patient was brought to the angiography suite prior to which a time-out was called for patient identification and site verification. Bilateral groins were prepped and draped in the standard surgical fashion. Under ultrasound guidance right common femoral was punctured with micro puncture needle and wire. Subsequently a precision 4 American sheath was then placed. Bentson wire was advanced to the level of the aorta. 4 American Flush catheter was brought up and parked at the level of the renal arteries. Aortogram was then undertaken. Catheter was brought down to the level of the iliac bifurcation. Iliacs were subsequently imaged. Catheter was then brought in up and over to the left side SFA. Runoff study was then undertaken. Was recognized that she had moderate disease throughout the length of the SFA. The distal portion of the SFA filled 1st via collaterals. In addition there was a stenosis noted in the external iliac. At this time 4000 units of systemic heparin was administered. After 5 minutes of circulation time up and over 6 American sheath was placed. We were able to traverse this lesion with an 035 glidewire Advantage with minimal difficulty. Once this was in place we confirmed true lumen with a trail Blazer catheter instilled with contrast. We subsequently exchanged out for 5 American spider wire. Over this throughout the length of the SFA we performed a atherectomy with the Hawk 1 device. Multiple unidirectional passes were undertaken. We did improved luminal diameter. There was some some residual stenosis. We treated this with a 5 x 150 drug coated balloon. Once this was accomplished we turned our attention to the external iliac. There was a high-grade stenosis. This was 1st plasty did with a 6 x 40 balloon. There was still residual stenosis and was followed up with a balloon expandable 6 x 37 stent. Patient tolerated this well. Completion angiogram demonstrated good result. Catheter wire sheath was brought back to the ipsilateral side. StarClose closure device was deployed. Patient tolerated the procedure well returned to recovery with stable vitals. Interpretation of films: 1. Ultrasound demonstrates appropriate femoral puncture. Image of which was saved. 2. Aortogram demonstrates appropriate caliber aorta. Minimal disease. Appropriate take-off of the renals. 3. Iliac images demonstrate mild calcific disease. Left external iliac moderate stenosis. 4. Left Leg Common femoral artery: No significant disease Profundus Femoris: No significant disease Superficial femoral artery: Moderate calcifications throughout the SFA Popliteal artery (p1,p2,p3): No significant disease Anterior tibial artery: Occludes prox Peroneal artery: Dominant runoff Posterior tibial artery: Patent Dorsalis pedis/plantar arch: Incomplete Conclusion: 1. Successful treatment of left SFA and external iliac 2. Anticoagulation status: Will require 6 months of Plavix and lifelong aspirin This note is constructed using voice recognition software. While every effort has been made to ensure accuracy, caterers helper errors may have been included. Thank you for allowing me to participate in the care of your patient. Yours sincerely, Cole Mcginnis MD, FACS, R.P.V.I.
[2023-01-15] MEDS: Lidocaine HCl 1 % MPF 5 ML VIAL 10 ML SUBCUT (16:14)
[2023-01-15 16:36] LABS: Glucose, Whole Blood 98 mg/dL (60-115)
--- NOTE | 2023-01-15 17:19 | P.PNIM_ITS ---
Subjective Subjective Date of Service: 01/15/23 Interval History: seen and examined this morning Follow-up for left toe infection requesting home inhalers to be resumed, wants to go home. no other specific complaints Review of Systems Review of Systems: Yes all other systems are reviewed and are negative Constitutional Constitutional: Denies chills and Denies fever(s) ENT Ears, Nose, Mouth, and Throat: Denies dizziness Cardiovascular Cardiovascular: Denies chest pain, Denies palpitations and Denies dyspnea Respiratory Respiratory: Denies cough and Denies dyspnea Gastrointestinal Gastrointestinal: Denies abdominal pain, Denies nausea and Denies vomiting Neurologic Neurologic: Denies dizziness Endocrine Endocrine: Denies palpitations Physical Exam Vital Signs: Vital Signs: Last Vital Signs Temp 97.4 F 01/15/23 17:00 Pulse 77 01/15/23 17:00 Resp 14 01/15/23 17:00 BP 151/62 H 01/15/23 17:00 Pulse Ox 98 01/15/23 17:00 O2 Del Method Nasal Cannula 01/15/23 17:00 O2 Flow Rate 2 01/15/23 17:00 BMI result Body Mass Index 23.6 Const: General: cooperative, comfortable, no acute distress, alert and awake Nutritional Appearance: average body habitus Orientation/consciousness: patient oriented x3 Resp: Effort & Inspection: normal respiratory effort, able to speak in complete sentences, no respiratory distress and no use of accessory muscles Auscultation: clear to auscultation bilaterally Cardio: Rate: regular rate Heart sounds: S1 normal heart sound present and S2 normal heart sound present GI: Inspection: No distended Palpation (GI): Soft to palpation and nontender Skin: Other: Neuro: General: patient oriented x3, moves all extremities and CN's II-XI intact bilaterally Extrem: General: Yes no pedal edema Objective Data Active Medications Acetaminophen (Acetaminophen 325 Mg Tablet) 650 mg PO Q6H PRN PRN Reason: Pain, Mild (Pain Scale 1-3) Last Admin: 01/15/23 09:54 Dose: 650 mg Documented By: JEFFERSON Albuterol/Ipratropium (Albuterol/Iprat 2.5/0.5mg 3 Ml Ampul.Neb) 3 ml INHALE Q6H PRN PRN Reason: shortness of breath/wheezing Amlodipine Besylate (Amlodipine Besylate 10 Mg Tablet) 10 mg PO DAILY [facility]; Pr otocol Last Admin: 01/15/23 08:09 Dose: 10 mg Documented By: JEFFERSON Aspirin (Aspirin 81 Mg Tab.Chew) 81 mg PO DAILY [facility] Atorvastatin Calcium (Atorvastatin Calcium 40 Mg Tablet) 40 mg PO BEDTIME [facility] Last Admin: 01/14/23 20:41 Dose: 40 mg Documented By: LEOLA Clopidogrel Bisulfate (Clopidogrel Bisulfate 75 Mg Tablet) 75 mg PO DAILY [facility] Dextrose (Dextrose 50 % 25 Gm/50 Ml Syringe) 25 gm IVPUSH Q15M PRN; Protocol PRN Reason: per Hypoglycemia Standing Ord. Docusate Sodium (Docusate Sodium 100 Mg Capsule) 100 mg PO DAILY PRN PRN Reason: Constipation Fluticasone/Vilanterol (Fluticasone/Vilanterol 200/25 Blst.W.Dev) 1 puff INHALE RDAILY [facility] Glucose (Glucose Gel 15 Gm Gel..Gram.) 15 gm PO Q15M PRN; Protocol PRN Reason: per Hypoglycemia Standing Ord. Cefepime HCl 2 gm/ Sodium (Chloride) 50 mls @ 100 mls/hr IV Q12H [facility] Last Infusion: 01/15/23 10:38 Dose: 0 mls/hr Documented By: CONCHA Vancomycin HCl 750 mg/ Sodium (Chloride) 265 mls @ 265 mls/hr IV Q24H [facility] Last Infusion: 01/14/23 20:01 Dose: 0 mls/hr Documented By: LEOLA Sodium Chloride (Ns) 1,000 mls @ 100 mls/hr IVCONT .Q10H [facility] Last Admin: 01/15/23 08:10 Dose: 100 mls/hr Documented By: JEFFERSON Promethazine HCl 6.25 mg/ (Sodium Chloride) 50.25 mls @ 201 mls/hr IV Q4H PRN PRN Reason: Nausea Last Admin: 01/15/23 15:56 Dose: 201 mls/hr Documented By: DONALD Insulin Human Lispro (Insulin Lispro 100 Unit/Ml 3 Ml Vial) 0 unit SUBCUT QIDACHS [facility]; Protocol Last Admin: 01/15/23 13:51 Dose: Not Given Documented By: JEFFERSON Non-Admin Reason: No Insulin Coverage Lisinopril (Lisinopril 40 Mg Tablet) 40 mg PO DAILY [facility]; Protocol Last Admin: 01/15/23 08:09 Dose: 40 mg Documented By: JEFFERSON Lorazepam (Lorazepam 0.5 Mg Tablet) 0.5 mg PO DAILY PRN PRN Reason: Anxiety Last Admin: 01/15/23 11:23 Dose: 0.5 mg Documented By: JEFFERSON Metoprolol Tartrate (Metoprolol Tartrate 100 Mg Tablet) 200 mg PO BID [facility]; Protocol Last Admin: 01/15/23 08:09 Dose: 200 mg Documented By: JEFFERSON Morphine Sulfate (Morphine Sulfate 2 Mg/Ml Cartridge) 2 mg IVPUSH Q4H PRN; Protocol PRN Reason: Pain, Mild (Pain Scale 1-3) Last Admin: 01/14/23 21:02 Dose: 2 mg Documented By: LEOLA Morphine Sulfate (Morphine Sulfate 4 Mg/Ml Cartridge) 4 mg IVPUSH Q2H PRN; Protocol PRN Reason: Pain, Severe (Pain Scale 7-10) Nortriptyline HCl (Nortriptyline Hcl 25 Mg Capsule) 25 mg PO BEDTIME PRN PRN Reason: Back Pain / foot pain Omeprazole (Omeprazole 40 Mg Capsule.Dr) 40 mg PO DAILY@0630 [facility] Last Admin: 01/15/23 05:50 Dose: 40 mg Documented By: LEOLA Ondansetron HCl (Ondansetron Hcl 4 Mg/2 Ml Vial) 4 mg IVPUSH Q8H PRN PRN Reason: Nausea and Vomiting Last Admin: 01/14/23 20:52 Dose: 4 mg Documented By: LEOLA Oxycodone HCl (Oxycodone Hcl Immed Release 5 Mg Tablet) 5 mg PO Q4H PRN PRN Reason: Pain, Moderate(Pain Scale 4-6) Pharmacy Consult (Consult Rx Vancomycin Dosing) 1 each MISCELLANE DAILY PRN PRN Reason: Consult order Sodium Chloride (0.9 % Sodium Chloride Flush 3 Ml Syringe) 3 ml IVFLUSH QSHIFT [facility] Last Admin: 01/15/23 08:09 Dose: 3 ml Documented By: JEFFERSON Vitamin D (Cholecalciferol (Vitamin D3) 25 Mcg Tablet) 25 mcg PO DAILY [facility] Last Admin: 01/15/23 08:09 Dose: 25 mcg Documented By: JEFFERSON Labs 01/14/23 05:29 01/15/23 05:41 Labs: Laboratory Results - last 24 hr 01/14/23 01/14/23 01/15/23 20:19 21:03 05:41 Anion Gap Estim Creat Clear Calc 41.1 Estimated GFR > 60 POC Glucose 154 H Random Glucose Calcium Vitamin B12 Folate TSH Urine Color Yellow Urine Appearance Cloudy Urine pH 5.5 Ur Specific Bryson 1.015 Urine Protein 300 (3+) H Urine Glucose (UA) >=1000 H Urine Ketones 15 Urine Blood Negative Urine Nitrite Negative Ur Leukocyte Esterase Negative Urine RBC 0-2 Urine WBC 0-5 Ur Squamous Epith Cells >20 Urine Bacteria None Seen Hyaline Casts 3-5 01/15/23 01/15/23 01/15/23 05:41 05:41 05:41 Anion Gap 16 Estim Creat Clear Calc 42.2 Estimated GFR > 60 POC Glucose Random Glucose 78 Calcium 9.2 Vitamin B12 382 Folate 14.8 TSH 1.35 Urine Color Urine Appearance Urine pH Ur Specific Bryson Urine Protein Urine Glucose (UA) Urine Ketones Urine Blood Urine Nitrite Ur Leukocyte Esterase Urine RBC Urine WBC Ur Squamous Epith Cells Urine Bacteria Hyaline Casts 01/15/23 01/15/23 01/15/23 07:39 11:19 16:32 Anion Gap Estim Creat Clear Calc Estimated GFR POC Glucose 96 110 98 Random Glucose Calcium Vitamin B12 Folate TSH Urine Color Urine Appearance Urine pH Ur Specific Bryson Urine Protein Urine Glucose (UA) Urine Ketones Urine Blood Urine Nitrite Ur Leukocyte Esterase Urine RBC Urine WBC Ur Squamous Epith Cells Urine Bacteria Hyaline Casts Microbiology Microbiology Results: Microbiology 01/13/23 16:44 Blood Culture - Preliminary Blood - Venous No growth after 24 hours. 01/13/23 16:44 Blood Culture - Preliminary Blood - Venous No growth after 24 hours. Assessment and Plan (1) PAD (peripheral artery disease): Status: Acute Plan 77-year-old female with history of coronary artery disease, carotid artery occlusion, [id number] type 2 diabetes, GERD, hypertension, and CKD stage 3 who is a current 1/2 pack per day smoker and marijuana user admitted for infected diabetic foot ulcer of the left great toe with concern for osteomyelitis. Acute infected unstageable ulcer left great toe due to uncontrolled diabetes/PAD WBC 11.2, VSS. No sepsis ESR 73, CRP 1.7. Continue IV vanco and cefepime General surgery consult- would likely benefit from debridement seen by vascular as below MRI pending to rule out osteomyelitis PVD LLE arterial doppler > with peripheral vascular disease, seen by vascular s/p left SFA atherectomy and plasty, left external iliac plasty and stent placement 01/15 continue asa, plavix, statin smoking cessation advised [id number] type 2 diabetes with hyperglycemia A1C 9.3 needs better control ss, ada diet hypertension continue amlodipine, metoprolol, lisinopril coronary artery disease no anginal chest pain continue aspirin, statin, beta-hilda CKD stage 3 renal function baseline tobacco dependence smoking cessation advised NRT COPD no acute exacerbation continue formulary equivalent for Symbicort, p.r.n. breathing treatments DVT prophylaxis- loading dose of plavix and high dose aspirin given today, mitchell sewell begin dvt ppx tomorrow For DNR/DNI Attending Dr. Purvis continued hospital stay for management of infected diabetic foot ulcer requiring IV antibiotics and possible surgical debridement as well as concern for osteomyelitis requiring further imaging and possible long-term antibiotics with expert consultation Time Spent With Patient Time: Total time managing care of this patient today ____ minutes. Quality Stroke Does the patient have a stroke diagnosis?: No VTE Prior VTE?: No VTE Risk Level:: Medical - moderate - high VTE Device Contraindication: Treatment Not Indicated VTE Drug Contraindication: N/A - Med Ordered
[2023-01-15] MEDS: Aspirin 325 MG TABLET 650 MG PO (18:11)
[2023-01-15] MEDS: Clopidogrel Bisulfate 300 MG TABLET PO (18:11)
[2023-01-15] MEDS: vancomycin HCL 750 MG in 0.9 % Sodium Chloride 250 ML 265 MG IV (18:12)
[2023-01-15] MEDS: ondansetron HCL 4 MG/2 ML VIAL IVPUSH (18:25)
[2023-01-15 20:16] LABS: Glucose, Whole Blood 136 mg/dL (60-115)
[2023-01-15 20:48] LABS: Vancomycin Random 28.1 mcg/mL (15-20)
--- NOTE | 2023-01-15 20:51 | HE.PHANOTE ---
RE: vanco Patient was in SSS so trough was not pulled on time @1600; 750mg dose given at 181 and trough pulled at 2008 for a false high of 28.1mg/L. Put in level to be drawn 01/16/23 @1600 before next dose.
[2023-01-15] MEDS: Atorvastatin Calcium 40 MG TABLET PO (22:07)
--- NOTE | 2023-01-15 23:23 | PM.EVENT ---
Event Note Date of Service: 01/15/23 Event Note: nurse tried to give patient a couple water, started choking on it and failed bedside swallow test. Will make patient NPO, will consult speech therapy Time Spent With Patient Time: Total time managing care of this patient today ____ minutes.
[2023-01-16 04:00] VITALS: BP 127/56; PULSE 69; RESP 20; TEMP 36.3; O2SAT 98
[2023-01-16] MEDS: 0.9 % Sodium Chloride 1,000 ML 100 ML IVCONT (05:30)
[2023-01-16] MEDS: Omeprazole 40 MG CAPSULE.DR PO (05:33)
[2023-01-16 05:47] VITALS: PULSE 69; RESP 18; O2SAT 98
[2023-01-16] MEDS: Albuterol/Iprat 2.5/0.5MG 3 ML AMPUL.NEB INHALE (05:47)
[2023-01-16 06:50] LABS: Hematocrit 32.8 % (37.0-47.0); Hemoglobin 10.2 g/dl (12.0-16.0); Mean Corpuscular HGB Conc 31.1 g/dl (31.0-35.0); Mean Corpuscular Hemoglobin 29.7 pg (27.0-33.0); Mean Corpuscular Volume 95.3 fL (80.0-98.0); Mean Platelet Volume 9.8 fL (9.4-12.3); Platelet Count 355 X10*3/uL (160-400); Red Blood Count 3.44 X10*6/uL (4.20-5.50); Red Cell Distribution Width 16.6 % (11.0-16.0); White Blood Count 9.9 X10*3/uL (4.8-10.8)
[2023-01-16 07:13] VITALS: BP 115/75; PULSE 75; RESP 18; TEMP 36.4; O2SAT 99
[2023-01-16 07:13] LABS: Blood Urea Nitrogen 14 mg/dL (9-16); Calcium 8.9 mg/dL (8.4-10.2); Creatinine Clr Calc Pharmacy 32.1; Estimated Glomerular Filt Rate 46; Glucose Random 82 mg/dL (60-115)
[2023-01-16 07:23] LABS: Chloride 109 mmol/L (96-108); Potassium 3.8 mmol/L (3.3-5.1); Sodium 136 mmol/L (135-145)
[2023-01-16 07:39] LABS: Anion Gap 22 (12-20); Carbon Dioxide 9 mmol/L (22-29)
[2023-01-16 07:56] LABS: Glucose, Whole Blood 85 mg/dL (60-115)
--- NOTE | 2023-01-16 08:54 | HO.VASCPN ---
Subjective Subjective Date of Service: 01/16/23 Patient reports: no new complaints and pain is less Interval history: Patient is postop day 1 status post left lower extremity endovascular intervention. She reports that she is doing somewhat better. Pain is better controlled. She reports that her pain decreased after the procedure and she also notes that the color is better. She is now for postprocedure follow-up she had no interval issues overnight. Physical Exam Vital Signs: Vital Signs: Last Vital Signs Temp 97.6 F 01/16/23 07:13 Pulse 75 01/16/23 07:13 Resp 18 01/16/23 07:13 BP 115/75 01/16/23 07:13 Pulse Ox 99 01/16/23 07:13 O2 Del Method Nasal Cannula 01/16/23 07:13 O2 Flow Rate 2 01/16/23 07:13 BMI result Body Mass Index 23.6 Const: General: cooperative, healthy appearing and no acute distress Orientation/consciousness: oriented to person, oriented to place and oriented to time HEENT: Head: Yes normal to inspection Neck: Carotids: no bruits Chest: Chest palpation & inspection: normal inspection of the chest Resp: Effort & Inspection: normal respiratory effort and able to speak in complete sentences Auscultation: clear to auscultation bilaterally Cardio: Other: Left foot palpable dorsalis pedis pulse Rate: regular rate Heart sounds: S1 normal heart sound present and S2 normal heart sound present GI: Inspection: Yes normal to inspection Skin: Other: Left great toe dry eschar on the plantar aspect General skin exam: no rashes or lesions noted Wounds: no wounds Neuro: General: oriented to person, oriented to place, oriented to time and CN's II-XI intact bilaterally Extrem: General: Yes normal to inspection, Yes full ROM and Yes no clubbing, cyanosis or edema Psych: Appearance: grossly normal and well kempt Speech and movement: Normal speech and movement present Affect: normal affect Progress Note: A&P Assessment and plan (1) PAD (peripheral artery disease): Status: Acute Assessment and Plan: In short patient has done extremely well with left leg endovascular intervention. She will need to be maintained on aspirin and Plavix for 6 months which has been ordered. And will be required upon discharge. The left great toe appears to be stable. We are awaiting MRI to determine if there is underlying osteomyelitis. Continue antibiotics. I do think that we have a good chance of salvaging this toe. This was discussed with the patient and she appears to be in much better spirits about things today. We will continue to monitor this patient with you. Thank you for allowing us to assist in her care Time Spent With Patient Time: Total time managing care of this patient today ____ minutes. Procedures Date of Service Date of Service: 01/16/23 Quality Stroke Does the patient have a stroke diagnosis?: No VTE Prior VTE?: No VTE Risk Level:: Medical - moderate - high VTE Device Contraindication: Treatment Not Indicated VTE Drug Contraindication: N/A - Med Ordered
[2023-01-16 09:02] LABS: VBG Base Excess -13.2 mmol/L; VBG HCO3 14 mmol/L (22-26); VBG pCO2 36 mmHg; VBG pH 7.18 (7.32-7.43); VBG pO2 70 mmHg
[2023-01-16 09:02] LABS: Venous Blood Gas Refer to POC result
[2023-01-16 09:09] LABS: Lactic Acid 0.7 mmol/L (0.5-2.0)
[2023-01-16 09:15] LABS: Anion Gap 20 (12-20); Blood Urea Nitrogen 14 mg/dL (9-16); Calcium 8.8 mg/dL (8.4-10.2); Carbon Dioxide 14 mmol/L (22-29); Chloride 109 mmol/L (96-108); Creatinine Clr Calc Pharmacy 30.5; Estimated Glomerular Filt Rate 44; Glucose Random 77 mg/dL (60-115); Potassium 3.6 mmol/L (3.3-5.1); Sodium 139 mmol/L (135-145)
[2023-01-16] MEDS: 0.9 % Sodium Chloride Flush 3 ML SYRINGE IVFLUSH ×2 (09:41→17:18)
[2023-01-16] MEDS: cefEPime HCl 2 GM in 0.9 % Sodium Chloride 50 ML IV ×2 (09:41→20:44)
[2023-01-16] MEDS: lisinopriL 40 MG TABLET PO (09:44)
[2023-01-16] MEDS: Aspirin 81 MG TAB.CHEW PO (09:45)
[2023-01-16] MEDS: Clopidogrel Bisulfate 75 MG TABLET PO (09:45)
[2023-01-16] MEDS: Metoprolol Tartrate 100 MG TABLET 200 MG PO ×2 (09:45→20:44)
[2023-01-16] MEDS: amLODIPine Besylate 10 MG TABLET PO (09:45)
[2023-01-16] MEDS: Cholecalciferol (Vitamin D3) 25 MCG TABLET PO (09:45)
--- NOTE | 2023-01-16 10:35 | P.CONNP_ITS ---
History of Present Illness Reason for Consult Consult date: 01/16/23 Chief Complaint Chief complaint: diabetic foot ulcer,LEFT LEG History of Present Illness Narrative: 77-year-old female with history of CKD stage 3 was admitted for infected diabetic foot ulcer of the left great toe with concern for osteomyelitis and is currently with metabolic acidosis. She denies fever, chills, chest pain, vomiting or diarrhea. She complains of some shortness of breath and dry heeves. Review of Systems Review of Systems 10 points ROS negative [facility] Past Medical History Medical History (Updated 01/16/23 @ 10:41 by Theo Martinez MD) CAD (coronary artery disease) Carotid artery occlusion CKD (chronic kidney disease) stage 3, GFR 30-59 ml/min Diabetes GERD (gastroesophageal reflux disease) GERD (gastroesophageal reflux disease) Hiatal hernia HTN (hypertension) Family History Family History Father No problems noted. Mother No problems noted. Surgical History Surgical History History of esophagogastroduodenoscopy (EGD) Social History Social History Household Members: None Housing: Apartment Do you presently have visiting nurse or other home services: No Alcohol intake: never Patient Tobacco Use Status: Never used Tobacco Tobacco use type: Cigarette Cigarette Packs Per Day: 0.5 Cigarettes Per Day: 10.0 Substance Use Type: Marijuana Advance Directives Date on File: 01/14/23 service: No Current occupational status: retired Meds Allergies Allergy/AdvReac Type Severity Reaction Status Date / Time silver Allergy Unknown SKIN TEARS Verified 02/27/22 11:37 [From TEGADERM AG MESH] TAPE,PAPER Allergy Unknown UNKNOWN Uncoded 02/27/22 11:37 Active Medications: Current Medications Acetaminophen (Acetaminophen 325 Mg Tablet) 650 mg PO Q6H PRN PRN Reason: Pain, Mild (Pain Scale 1-3) Last Admin: 01/15/23 09:54 Dose: 650 mg Albuterol/Ipratropium (Albuterol/Iprat 2.5/0.5mg 3 Ml Ampul.Neb) 3 ml INHALE Q6H PRN PRN Reason: shortness of breath/wheezing Last Admin: 01/16/23 05:47 Dose: 3 ml Amlodipine Besylate (Amlodipine Besylate 10 Mg Tablet) 10 mg PO DAILY [facility]; Protocol Last Admin: 01/16/23 09:45 Dose: 10 mg Aspirin (Aspirin 81 Mg Tab.Chew) 81 mg PO DAILY [facility] Last Admin: 01/16/23 09:45 Dose: 81 mg Atorvastatin Calcium (Atorvastatin Calcium 40 Mg Tablet) 40 mg PO BEDTIME [facility] Last Admin: 01/15/23 22:07 Dose: 40 mg Clopidogrel Bisulfate (Clopidogrel Bisulfate 75 Mg Tablet) 75 mg PO DAILY [facility] Last Admin: 01/16/23 09:45 Dose: 75 mg Dextrose (Dextrose 50 % 25 Gm/50 Ml Syringe) 25 gm IVPUSH Q15M PRN; Protocol PRN Reason: per Hypoglycemia Standing Ord. Docusate Sodium (Docusate Sodium 100 Mg Capsule) 100 mg PO DAILY PRN PRN Reason: Constipation Fluticasone/Vilanterol (Fluticasone/Vilanterol 200/25 Blst.W.Dev) 1 puff INHALE RDAILY [facility] Last Admin: 01/16/23 07:43 Dose: Not Given Glucose (Glucose Gel 15 Gm Gel..Gram.) 15 gm PO Q15M PRN; Protocol PRN Reason: per Hypoglycemia Standing Ord. Cefepime HCl 2 gm/ Sodium (Chloride) 50 mls @ 100 mls/hr IV Q12H [facility] Last Infusion: 01/16/23 09:49 Dose: 0 mls/hr Vancomycin HCl 750 mg/ Sodium (Chloride) 265 mls @ 265 mls/hr IV Q24H [facility] Last Infusion: 01/15/23 19:29 Dose: Infused Sodium Chloride (Ns) 1,000 mls @ 100 mls/hr IVCONT .Q10H [facility] Last Admin: 01/16/23 05:30 Dose: 100 mls/hr Promethazine HCl 6.25 mg/ (Sodium Chloride) 50.25 mls @ 201 mls/hr IV Q4H PRN PRN Reason: Nausea Last Infusion: 01/15/23 17:50 Dose: Infused Insulin Human Lispro (Insulin Lispro 100 Unit/Ml 3 Ml Vial) 0 unit SUBCUT QIDACHS [facility]; Protocol Last Admin: 01/16/23 07:45 Dose: Not Given Lisinopril (Lisinopril 40 Mg Tablet) 40 mg PO DAILY [facility]; Protocol Last Admin: 01/16/23 09:44 Dose: 40 mg Lorazepam (Lorazepam 0.5 Mg Tablet) 0.5 mg PO DAILY PRN PRN Reason: Anxiety Last Admin: 01/15/23 11:23 Dose: 0.5 mg Metoprolol Tartrate (Metoprolol Tartrate 100 Mg Tablet) 200 mg PO BID [facility]; Protocol Last Admin: 01/16/23 09:45 Dose: 200 mg Morphine Sulfate (Morphine Sulfate 2 Mg/Ml Cartridge) 2 mg IVPUSH Q4H PRN; Protocol PRN Reason: Pain, Mild (Pain Scale 1-3) Last Admin: 01/14/23 21:02 Dose: 2 mg Morphine Sulfate (Morphine Sulfate 4 Mg/Ml Cartridge) 4 mg IVPUSH Q2H PRN; Protocol PRN Reason: Pain, Severe (Pain Scale 7-10) Nicotine (Nicotine 14 Mg Patch.Td24) 14 mg TRANSDERMA DAILY [facility] Last Admin: 01/16/23 09:45 Dose: Not Given Nortriptyline HCl (Nortriptyline Hcl 25 Mg Capsule) 25 mg PO BEDTIME PRN PRN Reason: Back Pain / foot pain Omeprazole (Omeprazole 40 Mg Capsule.Dr) 40 mg PO DAILY@0630 [facility] Last Admin: 01/16/23 05:33 Dose: 40 mg Ondansetron HCl (Ondansetron Hcl 4 Mg/2 Ml Vial) 4 mg IVPUSH Q8H PRN PRN Reason: Nausea and Vomiting Last Admin: 01/15/23 18:25 Dose: 4 mg Oxycodone HCl (Oxycodone Hcl Immed Release 5 Mg Tablet) 5 mg PO Q4H PRN PRN Reason: Pain, Moderate(Pain Scale 4-6) Pharmacy Consult (Consult Rx Vancomycin Dosing) 1 each MISCELLANE DAILY PRN PRN Reason: Consult order Sodium Chloride (0.9 % Sodium Chloride Flush 3 Ml Syringe) 3 ml IVFLUSH QSHIFT [facility] Last Admin: 01/16/23 09:41 Dose: 3 ml Vitamin D (Cholecalciferol (Vitamin D3) 25 Mcg Tablet) 25 mcg PO DAILY [facility] Last Admin: 01/16/23 09:45 Dose: 25 mcg Home Medications Medication Instructions Recorded Confirmed Last Taken Type amlodipine 10 mg tablet 10 mg PO DAILY 11/01/13/23 01/13/23 09:00 History atorvastatin 40 mg tablet 40 mg PO BEDTIME 05/23/20 01/13/23 01/12/23 History cholecalciferol (vitamin D3) 25 25 mcg PO DAILY 05/23/20 01/13/23 01/13/23 09:00 History mcg (1,000 unit) capsule lisinopril 40 mg tablet 40 mg PO DAILY 05/23/20 01/13/23 01/13/23 09:00 History metoprolol tartrate 100 mg tablet 200 mg PO BID 05/23/20 01/13/23 01/13/23 09:00 History nateglinide 60 mg tablet 60 mg PO TIDAC 05/23/20 01/13/23 01/13/23 09:00 History omeprazole 40 mg capsule,delayed 40 mg PO DAILY@0630 05/23/20 01/13/23 01/13/23 06:30 History release sitagliptin phosphate 50 mg tablet 50 mg PO DAILY 05/23/20 01/13/23 01/13/23 09:00 History (Narciso) budesonide-formoterol HFA 160 1 puff PO BID PRN Shortness Of 12/27/21 01/13/23 12/27/21 History mcg-4.5 mcg/actuation aerosol Breath Or Wheezing inhaler (Symbicort) nortriptyline 25 mg capsule 1 cap PO BEDTIME PRN Back Pain / 12/27/21 01/13/23 12/26/21 History foot pain aspirin 81 mg tablet,delayed 81 mg PO DAILY 01/13/23 01/13/23 01/13/23 09:00 History release dapagliflozin propanediol 5 mg 5 mg PO DAILY 01/13/23 01/13/23 01/13/23 09:00 History tablet (Farxiga) Physical Exam Vital Signs: Last Vital Signs Temp 97.6 F 01/16/23 07:13 Pulse 75 01/16/23 07:13 Resp 18 01/16/23 07:13 BP 115/75 01/16/23 07:13 Pulse Ox 99 01/16/23 07:13 O2 Del Method Nasal Cannula 01/16/23 07:13 O2 Flow Rate 2 01/16/23 07:13 BMI result Body Mass Index 23.6 Const General: alert and awake HEENT Head: Yes normocephalic and Yes atraumatic Neck Neck: Yes supple Resp Effort & Inspection: decreased respiratory effort Cardio Heart sounds: S1 normal heart sound present and S2 normal heart sound present GI Palpation (GI): nontender Extrem General: No edema Results Lab Results 01/16/23 06:37 01/16/23 08:36 Lab results: Chemistry 01/13/23 01/14/23 01/15/23 17:46 05:29 05:41 Sodium 136 140 Potassium 3.9 3.6 Carbon Dioxide 21 L 20 L BUN 10 9 Creatinine 1.22 1.01 0.89 Calcium 10.3 H D 9.2 D 01/15/23 01/16/23 01/16/23 05:41 06:37 08:36 Sodium 140 136 139 Potassium 3.6 3.8 3.6 Carbon Dioxide 21 L 9 L* D 14 L BUN 9 14 14 Creatinine 0.87 1.14 1.20 Calcium 9.2 8.9 8.8 Hematology 01/13/23 01/14/23 01/16/23 16:44 05:29 06:37 WBC 11.2 H 10.0 9.9 Hgb 13.7 11.9 L 10.2 L Plt Count 429 H D 398 355 Urinalysis 01/14/23 21:03 Urine Color Yellow Urine Appearance Cloudy Urine pH 5.5 Ur Specific Diamond 1.015 Urine Protein 300 (3+) H Urine Glucose (UA) >=1000 H Urine Ketones 15 Urine Blood Negative Urine Nitrite Negative Ur Leukocyte Esterase Negative Urine RBC 0-2 Urine WBC 0-5 Ur Squamous Epith Cells >20 Hyaline Casts 3-5 Assessment and Plan (1) Diabetic ketoacidosis: Status: Acute (2) CKD (chronic kidney disease) stage 3, GFR 30-59 ml/min: Status: Acute Plan euglycemic diabetic keto acidosis due nto SGTL2i known CKD due to DM/HTN baseline Scr ~ 1.2 mg/dl REC crystalloid glucose and insulin hold SGTL2i follow kidney function and electrolytes Time Spent With Patient Time: Total time managing care of this patient today ____ minutes. Procedures Date of Service Date of Service: 01/16/23
[2023-01-16 11:27] LABS: Glucose, Whole Blood 161 mg/dL (60-115)
[2023-01-16 11:40] VITALS: BP 140/76; PULSE 88; RESP 18; TEMP 36.4; O2SAT 95
[2023-01-16] MEDS: Lactated Ringers 1,000 ML 100 ML IVCONT (11:58)
[2023-01-16] MEDS: LORazepam 0.5 MG TABLET PO (12:05)
--- NOTE | 2023-01-16 14:29 | P.PNIM_ITS ---
Subjective Subjective Date of Service: 01/16/23 Interval History: seen and examined this morning follow up for non healing foot wound s/p angioplasty Slept well overnight, no shortness of breath, cough, chest pain, abdominal pain Review of Systems Review of Systems: Yes all other systems are reviewed and are negative Constitutional Constitutional: Denies chills and Denies fever(s) ENT Ears, Nose, Mouth, and Throat: Denies dizziness Cardiovascular Cardiovascular: Denies chest pain, Denies palpitations and Denies dyspnea Respiratory Respiratory: Denies cough and Denies dyspnea Gastrointestinal Gastrointestinal: Denies abdominal pain, Denies nausea and Denies vomiting Neurologic Neurologic: Denies dizziness Endocrine Endocrine: Denies palpitations Physical Exam Vital Signs: Vital Signs: Last Vital Signs Temp 97.6 F 01/16/23 11:40 Pulse 88 01/16/23 11:40 Resp 18 01/16/23 11:40 BP 140/76 H 01/16/23 11:40 Pulse Ox 95 01/16/23 11:40 O2 Del Method Room Air 01/16/23 11:40 O2 Flow Rate 2 01/16/23 07:13 BMI result Body Mass Index 23.6 Const: General: cooperative, comfortable, no acute distress, alert and awake Nutritional Appearance: average body habitus Orientation/consciousness: patient oriented x3 Resp: Effort & Inspection: normal respiratory effort, able to speak in complete sentences, no respiratory distress and no use of accessory muscles Auscultation: clear to auscultation bilaterally Cardio: Rate: regular rate Heart sounds: S1 normal heart sound present and S2 normal heart sound present GI: Inspection: No distended Palpation (GI): Soft to palpation and nontender Skin: Other: Neuro: General: patient oriented x3, moves all extremities and CN's II-XI intact bilaterally Extrem: General: Yes no pedal edema Objective Data Active Medications Acetaminophen (Acetaminophen 325 Mg Tablet) 650 mg PO Q6H PRN PRN Reason: Pain, Mild (Pain Scale 1-3) Last Admin: 01/15/23 09:54 Dose: 650 mg Documented By: JEFFERSON Albuterol/Ipratropium (Albuterol/Iprat 2.5/0.5mg 3 Ml Ampul.Neb) 3 ml INHALE Q6H PRN PRN Reason: shortness of breath/wheezing Last Admin: 01/16/23 05:47 Dose: 3 ml Documented By: WENDY Amlodipine Besylate (Amlodipine Besylate 10 Mg Tablet) 10 mg PO DAILY [facility]; Protocol Last Admin: 01/16/23 09:45 Dose: 10 mg Documented By: SUASNA Aspirin (Aspirin 81 Mg Tab.Chew) 81 mg PO DAILY [facility] Last Admin: 01/16/23 09:45 Dose: 81 mg Documented By: SUSANA Atorvastatin Calcium (Atorvastatin Calcium 40 Mg Tablet) 40 mg PO BEDTIME [facility] Last Admin: 01/15/23 22:07 Dose: 40 mg Documented By: BETHEL Clopidogrel Bisulfate (Clopidogrel Bisulfate 75 Mg Tablet) 75 mg PO DAILY [facility] Last Admin: 01/16/23 09:45 Dose: 75 mg Documented By: SUSANA Dextrose (Dextrose 50 % 25 Gm/50 Ml Syringe) 25 gm IVPUSH Q15M PRN; Protocol PRN Reason: per Hypoglycemia Standing Ord. Docusate Sodium (Docusate Sodium 100 Mg Capsule) 100 mg PO DAILY PRN PRN Reason: Constipation Fluticasone/Vilanterol (Fluticasone/Vilanterol 200/25 Blst.W.Dev) 1 puff INHALE RDAILY [facility] Last Admin: 01/16/23 07:43 Dose: Not Given Documented By: NATALIE Non-Admin Reason: no med available; pharm. called Glucose (Glucose Gel 15 Gm Gel..Gram.) 15 gm PO Q15M PRN; Protocol PRN Reason: per Hypoglycemia Standing Ord. Cefepime HCl 2 gm/ Sodium (Chloride) 50 mls @ 100 mls/hr IV Q12H [facility] Last Infusion: 01/16/23 12:08 Dose: 0 mls/hr Documented By: SUSANA Vancomycin HCl 750 mg/ Sodium (Chloride) 265 mls @ 265 mls/hr IV Q24H [facility] Last Infusion: 01/15/23 19:29 Dose: 0 mls/hr Documented By: SUSANA Promethazine HCl 6.25 mg/ (Sodium Chloride) 50.25 mls @ 201 mls/hr IV Q4H PRN PRN Reason: Nausea Last Infusion: 01/15/23 17:50 Dose: 0 mls/hr Documented By: SUSANA Lactated Ringer's (Lr) 1,000 mls @ 100 mls/hr IVCONT .Q10H [facility] Last Admin: 01/16/23 11:58 Dose: 100 mls/hr Documented By: SUSANA Insulin Human Lispro (Insulin Lispro 100 Unit/Ml 3 Ml Vial) 0 unit SUBCUT QIDACHS [facility]; Protocol Last Admin: 01/16/23 11:58 Dose: Not Given Documented By: SUSANA Non-Admin Reason: pt refused meal Lisinopril (Lisinopril 40 Mg Tablet) 40 mg PO DAILY [facility]; Protocol Last Admin: 01/16/23 09:44 Dose: 40 mg Documented By: SUSANA Lorazepam (Lorazepam 0.5 Mg Tablet) 0.5 mg PO DAILY PRN PRN Reason: Anxiety Last Admin: 01/16/23 12:05 Dose: 0.5 mg Documented By: SUSANA Metoprolol Tartrate (Metoprolol Tartrate 100 Mg Tablet) 200 mg PO BID [facility]; Protocol Last Admin: 01/16/23 09:45 Dose: 200 mg Documented By: SUSANA Morphine Sulfate (Morphine Sulfate 2 Mg/Ml Cartridge) 2 mg IVPUSH Q4H PRN; Prot ocol PRN Reason: Pain, Mild (Pain Scale 1-3) Last Admin: 01/14/23 21:02 Dose: 2 mg Documented By: LEOLA Morphine Sulfate (Morphine Sulfate 4 Mg/Ml Cartridge) 4 mg IVPUSH Q2H PRN; Protocol PRN Reason: Pain, Severe (Pain Scale 7-10) Nicotine (Nicotine 14 Mg Patch.Td24) 14 mg TRANSDERMA DAILY [facility] Last Admin: 01/16/23 09:45 Dose: Not Given Documented By: SUSANA Non-Admin Reason: Patient Refused Nortriptyline HCl (Nortriptyline Hcl 25 Mg Capsule) 25 mg PO BEDTIME PRN PRN Reason: Back Pain / foot pain Omeprazole (Omeprazole 40 Mg Capsule.) 40 mg PO DAILY@0630 [facility] Last Admin: 01/16/23 05:33 Dose: 40 mg Documented By: BETHEL Ondansetron HCl (Ondansetron Hcl 4 Mg/2 Ml Vial) 4 mg IVPUSH Q8H PRN PRN Reason: Nausea and Vomiting Last Admin: 01/15/23 18:25 Dose: 4 mg Documented By: SUSANA Oxycodone HCl (Oxycodone Hcl Immed Release 5 Mg Tablet) 5 mg PO Q4H PRN PRN Reason: Pain, Moderate(Pain Scale 4-6) Pharmacy Consult (Consult Rx Vancomycin Dosing) 1 each MISCELLANE DAILY PRN PRN Reason: Consult order Sodium Chloride (0.9 % Sodium Chloride Flush 3 Ml Syringe) 3 ml IVFLUSH QSHIFT [facility] Last Admin: 01/16/23 09:41 Dose: 3 ml Documented By: SUSANA Vitamin D (Cholecalciferol (Vitamin D3) 25 Mcg Tablet) 25 mcg PO DAILY [facility] Last Admin: 01/16/23 09:45 Dose: 25 mcg Documented By: SUSANA Labs 01/16/23 06:37 01/16/23 08:36 Labs: Laboratory Results - last 24 hr 01/15/23 01/15/23 01/15/23 16:32 20:09 20:12 MCV MCH MCHC RDW Plt Count MPV Absolute Nucleated RBC Nucleated RBC % (auto) VBG pH VBG pCO2 VBG pO2 VBG HCO3 VBG O2 Saturation VBG Base Excess Anion Gap Estim Creat Clear Calc Estimated GFR POC Glucose 98 136 H Random Glucose Lactic Acid Calcium Beta-Hydroxybutyrate Random Vancomycin 28.1 H* 01/16/23 01/16/23 01/16/23 06:37 06:37 07:42 MCV 95.3 MCH 29.7 MCHC 31.1 RDW 16.6 H Plt Count 355 MPV 9.8 Absolute Nucleated RBC 0.000 Nucleated RBC % (auto) 0.0 VBG pH VBG pCO2 VBG pO2 VBG HCO3 VBG O2 Saturation VBG Base Excess Anion Gap 22 H Estim Creat Clear Calc 32.1 Estimated GFR 46 POC Glucose 85 Random Glucose 82 Lactic Acid Calcium 8.9 Beta-Hydroxybutyrate Random Vancomycin 01/16/23 01/16/23 01/16/23 08:36 08:36 08:36 MCV MCH MCHC RDW Plt Count MPV Absolute Nucleated RBC Nucleated RBC % (auto) VBG pH VBG pCO2 VBG pO2 VBG HCO3 VBG O2 Saturation VBG Base Excess Anion Gap 20 Estim Creat Clear Calc 30.5 Estimated GFR 44 POC Glucose Random Glucose 77 Lactic Acid 0.7 Calcium 8.8 Beta-Hydroxybutyrate 5.20 H Random Vancomycin 01/16/23 01/16/23 08:40 11:21 MCV MCH MCHC RDW Plt Count MPV Absolute Nucleated RBC Nucleated RBC % (auto) VBG pH 7.18 L* VBG pCO2 36 VBG pO2 70 VBG HCO3 14 L VBG O2 Saturation 92.0 VBG Base Excess -13.2 Anion Gap Estim Creat Clear Calc Estimated GFR POC Glucose 161 H Random Glucose Lactic Acid Calcium Beta-Hydroxybutyrate Random Vancomycin Microbiology Microbiology Results: Microbiology 01/13/23 16:44 Blood Culture - Preliminary Blood - Venous No growth after 48 hours. 01/13/23 16:44 Blood Culture - Preliminary Blood - Venous No growth after 48 hours. Assessment and Plan (1) PAD (peripheral artery disease): Status: Acute (2) Diabetic foot ulcer: Status: Acute Plan 77-year-old female with history of coronary artery disease, carotid artery occlusion, [id number] type 2 diabetes, GERD, hypertension, and CKD stage 3 who is a current 1/2 pack per day smoker and marijuana user admitted for infected diabetic foot ulcer of the left great toe with concern for osteomyelitis. Acute anion gap metabolic acidosis beta-hydroxybuterate elevated, AG 22, ABG ph 7.18. concern for euvolemic DKA will discussed with ICU, plan to repeat labs and then decide next steps as bicarb and anion gap have improved somewhat without intervention, may not need insulin drip nephrology consulted does agree with euvolemic DKA continue IVF, follow POCs. Acute infected unstageable ulcer left great toe due to uncontrolled diabetes/PAD WBC 11.2, VSS. No sepsis ESR 73, CRP 1.7. Continue IV vanco and cefepime started 01/13 General surgery consult- may benefit from debridement at some point in the fut ure seen by vascular as below MRI obtained - showing mild or early osteomyelitis of the 1st distal phalanx most prominent at the tuft ID consult pending PVD LLE arterial doppler > with peripheral vascular disease, seen by vascular s/p left SFA atherectomy and plasty, left external iliac plasty and stent placement 01/15 continue asa, plavix, statin smoking cessation advised vascular surgery following [id number] type 2 diabetes with hyperglycemia A1C 9.3 needs better control continue SSI, ada diet hypertension continue amlodipine, metoprolol, lisinopril coronary artery disease continue aspirin, statin, beta-hilda CKD stage 3 kidney function has trended up somwhat continue IVF renal function baseline tobacco dependence smoking cessation advised NRT COPD no acute exacerbation continue formulary equivalent for Symbicort, p.r.n. breathing treatments DVT prophylaxis- early ambulation For DNR/DNI Attending Dr. Purvis continued hospital stay for management of infected diabetic foot ulcer requiring IV antibiotics and possible surgical debridement as well as concern for osteomyelitis requiring further imaging and possible long-term antibiotics with expert consultation Time Spent With Patient Time: Total time managing care of this patient today ____ minutes. Quality Stroke Does the patient have a stroke diagnosis?: No VTE Prior VTE?: No VTE Risk Level:: Medical - moderate - high VTE Device Contraindication: Treatment Not Indicated VTE Drug Contraindication: N/A - Med Ordered
--- NOTE | 2023-01-16 14:53 | P.CDIM_ITS ---
PROVIDER RESPONSE TEXT: To clarify, the appropriate diagnosis supported by the clinical indicators: Other (explain): no previous diagnosis of neuropathy QUERY TEXT: PHYSICIAN'S DOCUMENTATION REQUEST Date of Query: 01/16/2023 08:29 AM EDT Patient Name: Yaneth Iraheta Admit Date: 01/14/2023 Dear Bessie Bruce, A review of the medical record indicates additional documentation may be needed. Please review below and update the documentation accordingly. Clinical Indicators: PN: 01/14 - Review of systems: follow diabetic foot ulcer/has some pain and neuropathy. Please clarify the following regarding the specifics of the neuropathy if known: Diabetes mellitus Type 2 with peripheral neuropathy Diabetes mellitus Type 2 with polyneuropathy Diabetes mellitus Type 2 with autonomic neuropathy Other Other (explain)Clinically unable to determine (explain)Thank you, Gloria Rubio, CCS, CDIS Use of terms such as suspected, likely, concern for, or probable (associated with a specific diagnosi s that is being evaluated, monitored, or treated as if it exists) are acceptable and can be coded in the inpatient se tting, when documented at the time of discharge. Please use your independent medical judgment in providing your response. THIS QUERY IS PART OF THE PERMANENT MEDICAL RECORD
--- NOTE | 2023-01-16 15:03 | MHC.CM.PN ---
EMR reviewed and per MD rounds, pt is not medically cleared for D/C due to management of infected diabetic foot ulcer, needs IV antibiotics and possible intervention, along with concern for osteomyelitis requiring further imaging. CM will continue to follow.
[2023-01-16 15:16] LABS: Anion Gap 20 (12-20)
[2023-01-16 15:18] LABS: Blood Urea Nitrogen 15 mg/dL (9-16); Calcium 8.7 mg/dL (8.4-10.2); Carbon Dioxide 13 mmol/L (22-29); Chloride 109 mmol/L (96-108); Creatinine Clr Calc Pharmacy 31.6; Estimated Glomerular Filt Rate 46; Glucose Random 72 mg/dL (60-115); Potassium 3.7 mmol/L (3.3-5.1); Sodium 138 mmol/L (135-145)
--- NOTE | 2023-01-16 15:37 | P.CNID_ITS ---
History of Present Illness Data of Consult Service Date: 01/16/23 Requesting physician: Bessie Bruce Primary Care Provider: Gene Sanchez MD HPI Reason for consult: left great toe infection She presents with left great toe redness and swelling. She has no fever or chills. She had symptoms for a week. XR shows OM toe Review of Systems Review of Systems: Yes all other systems are reviewed and are negative PMFSH Past Medical History Medical History CAD (coronary artery disease) Carotid artery occlusion CKD (chronic kidney disease) stage 3, GFR 30-59 ml/min Diabetes GERD (gastroesophageal reflux disease) GERD (gastroesophageal reflux disease) Hiatal hernia HTN (hypertension) Family History Family History Father No problems noted. Mother No problems noted. Family history: reviewed and not pertinent Surgical History Surgical History History of esophagogastroduodenoscopy (EGD) Social History Social History Household Members: None Housing: Apartment Do you presently have visiting nurse or other home services: No Alcohol intake: never Patient Tobacco Use Status: Never used Tobacco Tobacco use type: Cigarette Cigarette Packs Per Day: 0.5 Cigarettes Per Day: 10.0 Substance Use Type: Marijuana Advance Directives Date on File: 01/14/23 service: No Current occupational status: retired Meds Allergies Allergy/AdvReac Type Severity Reaction Status Date / Time silver Allergy Unknown SKIN TEARS Verified 02/27/22 11:37 [From TEGADERM AG MESH] TAPE,PAPER Allergy Unknown UNKNOWN Uncoded 02/27/22 11:37 Active Medications: Current Medications Acetaminophen (Acetaminophen 325 Mg Tablet) 650 mg PO Q6H PRN PRN Reason: Pain, Mild (Pain Scale 1-3) Last Admin: 01/15/23 09:54 Dose: 650 mg Albuterol/Ipratropium (Albuterol/Iprat 2.5/0.5mg 3 Ml Ampul.Neb) 3 ml INHALE Q6H PRN PRN Reason: shortness of breath/wheezing Last Admin: 01/16/23 05:47 Dose: 3 ml Amlodipine Besylate (Amlodipine Besylate 10 Mg Tablet) 10 mg PO DAILY [facility]; Protocol Last Admin: 01/16/23 09:45 Dose: 10 mg Aspirin (Aspirin 81 Mg Tab.Chew) 81 mg PO DAILY [facility] Last Admin: 01/16/23 09:45 Dose: 81 mg Atorvastatin Calcium (Atorvastatin Calcium 40 Mg Tablet) 40 mg PO BEDTIME [facility] Last Admin: 01/15/23 22:07 Dose: 40 mg Clopidogrel Bisulfate (Clopidogrel Bisulfate 75 Mg Tablet) 75 mg PO DAILY [facility] Last Admin: 01/16/23 09:45 Dose: 75 mg Dextrose (Dextrose 50 % 25 Gm/50 Ml Syringe) 25 gm IVPUSH Q15M PRN; Protocol PRN Reason: per Hypoglycemia Standing Ord. Docusate Sodium (Docusate Sodium 100 Mg Capsule) 100 mg PO DAILY PRN PRN Reason: Constipation Fluticasone/Vilanterol (Fluticasone/Vilanterol 200/25 Blst.W.Dev) 1 puff INHALE RDAILY [facility] Last Admin: 01/16/23 07:43 Dose: Not Given Glucose (Glucose Gel 15 Gm Gel..Gram.) 15 gm PO Q15M PRN; Protocol PRN Reason: per Hypoglycemia Standing Ord. Cefepime HCl 2 gm/ Sodium (Chloride) 50 mls @ 100 mls/hr IV Q12H [facility] Last Infusion: 01/16/23 12:08 Dose: Infused Vancomycin HCl 750 mg/ Sodium (Chloride) 265 mls @ 265 mls/hr IV Q24H [facility] Last Infusion: 01/15/23 19:29 Dose: Infused Promethazine HCl 6.25 mg/ (Sodium Chloride) 50.25 mls @ 201 mls/hr IV Q4H PRN PRN Reason: Nausea Last Infusion: 01/15/23 17:50 Dose: Infused Lactated Ringer's (Lr) 1,000 mls @ 100 mls/hr IVCONT .Q10H [facility] Last Admin: 01/16/23 11:58 Dose: 100 mls/hr Insulin Human Lispro (Insulin Lispro 100 Unit/Ml 3 Ml Vial) 0 unit SUBCUT QIDACHS [facility]; Protocol Last Admin: 01/16/23 11:58 Dose: Not Given Lisinopril (Lisinopril 40 Mg Tablet) 40 mg PO DAILY [facility]; Protocol Last Admin: 01/16/23 09:44 Dose: 40 mg Lorazepam (Lorazepam 0.5 Mg Tablet) 0.5 mg PO DAILY PRN PRN Reason: Anxiety Last Admin: 01/16/23 12:05 Dose: 0.5 mg Metoprolol Tartrate (Metoprolol Tartrate 100 Mg Tablet) 200 mg PO BID [facility]; Protocol Last Admin: 01/16/23 09:45 Dose: 200 mg Morphine Sulfate (Morphine Sulfate 2 Mg/Ml Cartridge) 2 mg IVPUSH Q4H PRN; Protocol PRN Reason: Pain, Mild (Pain Scale 1-3) Last Admin: 01/14/23 21:02 Dose: 2 mg Morphine Sulfate (Morphine Sulfate 4 Mg/Ml Cartridge) 4 mg IVPUSH Q2H PRN; Protocol PRN Reason: Pain, Severe (Pain Scale 7-10) Nicotine (Nicotine 14 Mg Patch.Td24) 14 mg TRANSDERMA DAILY [facility] Last Admin: 01/16/23 09:45 Dose: Not Given Nortriptyline HCl (Nortriptyline Hcl 25 Mg Capsule) 25 mg PO BEDTIME PRN PRN Reason: Back Pain / foot pain Omeprazole (Omeprazole 40 Mg Capsule.Dr) 40 mg PO DAILY@0630 [facility] Last Admin: 01/16/23 05:33 Dose: 40 mg Ondansetron HCl (Ondansetron Hcl 4 Mg/2 Ml Vial) 4 mg IVPUSH Q8H PRN PRN Reason: Nausea and Vomiting Last Admin: 01/15/23 18:25 Dose: 4 mg Oxycodone HCl (Oxycodone Hcl Immed Release 5 Mg Tablet) 5 mg PO Q4H PRN PRN Reason: Pain, Moderate(Pain Scale 4-6) Pharmacy Consult (Consult Rx Vancomycin Dosing) 1 each MISCELLANE DAILY PRN PRN Reason: Consult order Sodium Chloride (0.9 % Sodium Chloride Flush 3 Ml Syringe) 3 ml IVFLUSH QSHIFT [facility] Last Admin: 01/16/23 09:41 Dose: 3 ml Vitamin D (Cholecalciferol (Vitamin D3) 25 Mcg Tablet) 25 mcg PO DAILY [facility] Last Admin: 01/16/23 09:45 Dose: 25 mcg Home Medications Medication Instructions Recorded Confirmed Last Taken Type amlodipine 10 mg tablet 10 mg PO DAILY 11/01/13/23 01/13/23 09:00 History atorvastatin 40 mg tablet 40 mg PO BEDTIME 05/23/20 01/13/23 01/12/23 History cholecalciferol (vitamin D3) 25 25 mcg PO DAILY 05/23/20 01/13/23 01/13/23 09:00 History mcg (1,000 unit) capsule lisinopril 40 mg tablet 40 mg PO DAILY 05/23/20 01/13/23 01/13/23 09:00 History metoprolol tartrate 100 mg tablet 200 mg PO BID 05/23/20 01/13/23 01/13/23 09:00 History nateglinide 60 mg tablet 60 mg PO TIDAC 05/23/20 01/13/23 01/13/23 09:00 History omeprazole 40 mg capsule,delayed 40 mg PO DAILY@0630 05/23/20 01/13/23 01/13/23 06:30 History release sitagliptin phosphate 50 mg tablet 50 mg PO DAILY 05/23/20 01/13/23 01/13/23 09:00 History (Narciso) budesonide-formoterol HFA 160 1 puff PO BID PRN Shortness Of 12/27/21 01/13/23 12/27/21 History mcg-4.5 mcg/actuation aerosol Breath Or Wheezing inhaler (Symbicort) nortriptyline 25 mg capsule 1 cap PO BEDTIME PRN Back Pain / 12/27/21 01/13/23 12/26/21 History foot pain aspirin 81 mg tablet,delayed 81 mg PO DAILY 01/13/23 01/13/23 01/13/23 09:00 History release dapagliflozin propanediol 5 mg 5 mg PO DAILY 01/13/23 01/13/23 01/13/23 09:00 History tablet (Farxiga) Physical Exam Vital Signs: Vital Signs: Last Vital Signs Temp 97.6 F 01/16/23 11:40 Pulse 88 01/16/23 11:40 Resp 18 01/16/23 11:40 BP 140/76 H 01/16/23 11:40 Pulse Ox 95 01/16/23 11:40 O2 Del Method Room Air 01/16/23 11:40 O2 Flow Rate 2 01/16/23 07:13 BMI result Body Mass Index 23.6 Const: General: cooperative HEENT: Head: Yes normal to inspection Face and sinus: Yes normal facial exam Mouth: Normal oral and palatal mucosa present Teeth and gingiva: dentition normal Eyes: General: appearance normal, both eyes and all related structures Pupils: Equal, round and reactive pupils present Resp: Effort & Inspection: normal respiratory effort Cardio: Rate: regular rate Rhythm: regular rhythm GI: Palpation (GI): Soft to palpation and nontender : General: Yes no CVA tenderness Back/Spine/Pelvis: Back: no CVA tenderness Skin: General skin exam: no rashes or lesions noted Neuro: General: moves all extremities Cranial nerves: Yes Equal, round and reactive pupils present Extrem: Other: left great toe swelling,redness Psych: Appearance: grossly normal Results Labs 01/16/23 06:37 01/16/23 08:36 Labs: Short CBC 01/16/23 Range/Units 06:37 WBC 9.9 (4.8-10.8) X10*3/uL Hgb 10.2 L (12.0-16.0) g/dl Hct 32.8 L (37.0-47.0) % Plt Count 355 (160-400) X10*3/uL BMP 01/16/23 01/16/23 01/16/23 06:37 08:36 08:36 Sodium 136 139 138 Potassium 3.8 3.6 3.7 Chloride 109 H 109 H 109 H Carbon Dioxide 9 L* D 14 L 13 L BUN 14 14 15 Creatinine 1.14 1.20 1.16 Calcium 8.9 8.8 8.7 Microbiology Microbiology Results: Microbiology 01/13/23 16:44 Blood - Venous Blood Culture - Preliminary No growth after 48 hours. 01/13/23 16:44 Blood - Venous Blood Culture - Preliminary No growth after 48 hours. Assessment and Plan (1) CKD (chronic kidney disease) stage 3, GFR 30-59 ml/min: Status: Acute (2) Diabetic foot ulcer: Status: Acute She has possible gram negative,gram positive ,anerobes She has no antibiotic allergy Plan Six week IV Ertapenem 1 g daily (.5 g if GFR less than 30). Weekly CBC ,creatinine,SGOT. Time Spent With Patient Time: Total time managing care of this patient today ____ minutes.
[2023-01-16 16:14] LABS: Glucose, Whole Blood 177 mg/dL (60-115)
[2023-01-16 16:21] LABS: VBG Base Excess -13.4 mmol/L; VBG HCO3 11 mmol/L (22-26); VBG pCO2 24 mmHg; VBG pH 7.27 (7.32-7.43); VBG pO2 152 mmHg
[2023-01-16 16:38] LABS: Venous Blood Gas Refer to POC result
[2023-01-16 16:42] LABS: Anion Gap 19 (12-20); Blood Urea Nitrogen 15 mg/dL (9-16); Carbon Dioxide 12 mmol/L (22-29); Chloride 108 mmol/L (96-108); Creatinine Clr Calc Pharmacy 27.4; Estimated Glomerular Filt Rate 39; Glucose Random 176 mg/dL (60-115); Potassium 4.1 mmol/L (3.3-5.1); Sodium 135 mmol/L (135-145)
[2023-01-16 16:43] LABS: Vancomycin Random 16.7 mcg/mL (15-20)
--- NOTE | 2023-01-16 17:02 | HE.PHANOTE ---
RE: vanco Creatinine worsened, decreased dose to 500mg Q24H. Predicted AUC of 438mg/L and trough of 14.6mg/L. Next level to be drawn 01/18/23 @1600
[2023-01-16] MEDS: Enoxaparin Sodium 30 MG/0.3 ML SYRINGE SUBCUT (17:19)
[2023-01-16] MEDS: Insulin Lispro 100 UNIT/ML 3 ML VIAL SUBCUT (17:19)
[2023-01-16 19:22] VITALS: BP 162/89; RESP 18; TEMP 36.1; O2SAT 96
[2023-01-16 20:00] VITALS: PULSE 74
[2023-01-16 20:09] LABS: Glucose, Whole Blood 120 mg/dL (60-115)
[2023-01-16] MEDS: Atorvastatin Calcium 40 MG TABLET PO (20:44)
[2023-01-17 03:12] VITALS: BP 137/52; PULSE 75; RESP 18; TEMP 36.6; O2SAT 94
[2023-01-17] MEDS: Omeprazole 40 MG CAPSULE.DR PO (05:36)
[2023-01-17 06:03] LABS: Venous Blood Gas Refer to POC result
[2023-01-17 06:04] LABS: VBG Base Excess -8.3 mmol/L; VBG HCO3 16 mmol/L (22-26); VBG pCO2 29 mmHg; VBG pH 7.33 (7.32-7.43); VBG pO2 44 mmHg
[2023-01-17 06:45] LABS: Anion Gap 17 (12-20); Blood Urea Nitrogen 10 mg/dL (9-16); Calcium 9.6 mg/dL (8.4-10.2); Carbon Dioxide 15 mmol/L (22-29); Chloride 109 mmol/L (96-108); Creatinine Clr Calc Pharmacy 29.6; Estimated Glomerular Filt Rate 42; Glucose Random 88 mg/dL (60-115); Potassium 3.9 mmol/L (3.3-5.1); Sodium 137 mmol/L (135-145)
[2023-01-17 07:06] LABS: Glucose, Whole Blood 110 mg/dL (60-115)
[2023-01-17 07:45] VITALS: BP 168/69; PULSE 77; RESP 18; TEMP 36.1; O2SAT 96
--- NOTE | 2023-01-17 08:32 | PM.PNNEP ---
Subjective Subjective Date of Service: 01/17/23 Interval history: seen and examined no complaints Physical Exam Vital Signs: Vital Signs: Last Vital Signs Temp 96.9 F 01/17/23 07:45 Pulse 77 01/17/23 07:45 Resp 18 01/17/23 07:45 BP 168/69 H 01/17/23 07:45 Pulse Ox 96 01/17/23 07:45 O2 Del Method Room Air 01/17/23 03:12 O2 Flow Rate 2 01/16/23 07:13 BMI result Body Mass Index 23.6 Const: General: alert and awake HEENT: Head: Yes normocephalic and Yes atraumatic Neck: Neck: Yes supple Resp: Effort & Inspection: decreased respiratory effort Cardio: Heart sounds: S1 normal heart sound present and S2 normal heart sound present GI: Palpation (GI): nontender Extrem: General: No edema Objective Data Labs 01/16/23 06:37 01/17/23 05:56 Labs: Laboratory Results - last 24 hr 01/16/23 01/16/23 01/16/23 08:36 08:36 08:36 VBG pH VBG pCO2 VBG pO2 VBG HCO3 VBG O2 Saturation VBG Base Excess Sodium 139 138 Potassium 3.6 3.7 Chloride 109 H 109 H Carbon Dioxide 14 L 13 L Anion Gap 20 20 BUN 14 15 Creatinine 1.20 1.16 Estim Creat Clear Calc 30.5 31.6 Estimated GFR 44 46 POC Glucose Random Glucose 77 72 Lactic Acid 0.7 Calcium 8.8 8.7 Beta-Hydroxybutyrate 5.20 H Random Vancomycin 01/16/23 01/16/23 01/16/23 08:40 11:21 15:56 VBG pH 7.18 L* VBG pCO2 36 VBG pO2 70 VBG HCO3 14 L VBG O2 Saturation 92.0 VBG Base Excess -13.2 Sodium Potassium Chloride Carbon Dioxide Anion Gap BUN Creatinine Estim Creat Clear Calc Estimated GFR POC Glucose 161 H Random Glucose Lactic Acid Calcium Beta-Hydroxybutyrate Random Vancomycin 16.7 01/16/23 01/16/23 01/16/23 15:56 16:03 16:14 VBG pH 7.27 L VBG pCO2 24 VBG pO2 152 VBG HCO3 11 L VBG O2 Saturation 100.0 VBG Base Excess -13.4 Sodium 135 Potassium 4.1 Chloride 108 Carbon Dioxide 12 L Anion Gap 19 BUN 15 Creatinine 1.34 Estim Creat Clear Calc 27.4 Estimated GFR 39 POC Glucose 177 H Random Glucose 176 H Lactic Acid Calcium 9.0 Beta-Hydroxybutyrate Random Vancomycin 01/16/23 01/17/23 01/17/23 19:32 05:56 05:57 VBG pH 7.33 VBG pCO2 29 VBG pO2 44 VBG HCO3 16 L VBG O2 Saturation 77.0 VBG Base Excess -8.3 Sodium 137 Potassium 3.9 Chloride 109 H Carbon Dioxide 15 L Anion Gap 17 BUN 10 Creatinine 1.24 Estim Creat Clear Calc 29.6 Estimated GFR 42 POC Glucose 120 H Random Glucose 88 Lactic Acid Calcium 9.6 D Beta-Hydroxybutyrate Random Vancomycin 01/17/23 06:59 VBG pH VBG pCO2 VBG pO2 VBG HCO3 VBG O2 Saturation VBG Base Excess Sodium Potassium Chloride Carbon Dioxide Anion Gap BUN Creatinine Estim Creat Clear Calc Estimated GFR POC Glucose 110 Random Glucose Lactic Acid Calcium Beta-Hydroxybutyrate Random Vancomycin Microbiology Microbiology Results: Microbiology 01/13/23 16:44 Blood - Venous Blood Culture - Preliminary No growth after 48 hours. 01/13/23 16:44 Blood - Venous Blood Culture - Preliminary No growth after 48 hours. Procedures Date of Service Date of Service: 01/17/23 Assessment & Plan Assessment and plan (1) Diabetic ketoacidosis: Status: Acute (2) CKD (chronic kidney disease) stage 3, GFR 30-59 ml/min: Status: Acute Plan euglycemic diabetic keto acidosis due nto SGTL2i known CKD due to DM/HTN baseline Scr ~ 1.2 mg/dl REC crystalloid hold SGTL2i follow kidney function and electrolytes Time Spent With Patient Time: Total time managing care of this patient today ____ minutes. Progress Note: Quality Stroke Does the patient have a stroke diagnosis?: No
[2023-01-17] MEDS: Fluticasone/Vilanterol 200/25 BLST.W.DEV 1 PUFF INHALE (08:36)
[2023-01-17 08:40] VITALS: PULSE 76; RESP 16; O2SAT 96
[2023-01-17] MEDS: Lactated Ringers 1,000 ML 100 ML IVCONT ×2 (08:58→17:34)
[2023-01-17] MEDS: Cholecalciferol (Vitamin D3) 25 MCG TABLET PO (08:58)
[2023-01-17] MEDS: cefEPime HCl 2 GM in 0.9 % Sodium Chloride 50 ML IV ×2 (08:58→20:46)
[2023-01-17] MEDS: Metoprolol Tartrate 100 MG TABLET 200 MG PO ×2 (08:58→20:45)
[2023-01-17] MEDS: lisinopriL 40 MG TABLET PO (08:59)
[2023-01-17] MEDS: Clopidogrel Bisulfate 75 MG TABLET PO (08:59)
[2023-01-17] MEDS: amLODIPine Besylate 10 MG TABLET PO (08:59)
[2023-01-17] MEDS: Aspirin 81 MG TAB.CHEW PO (08:59)
--- NOTE | 2023-01-17 09:35 | HO.PM.IMPN ---
Subjective Subjective Date of Service: 01/17/23 Interval History: no new issues, upset and wants to go home Review of Systems 10 points ROS negative except for pertinent in HPI Constitutional Constitutional: Reports as per HPI, Reports no additional constitutional complaints, Denies chills and Denies fever(s) Eyes Eyes: Reports as per HPI ENT Ears, Nose, Mouth, and Throat: Reports as per HPI, Reports Normal hearing present and Denies dizziness Cardiovascular Cardiovascular: Reports as per HPI, Denies chest pain, Denies chest pain at rest, Denies chest pain with activity, Denies pedal edema, Denies palpitations, Denies dyspnea and Reports dyspnea on exertion Respiratory Respiratory: Reports as per HPI, Denies cough, Denies dyspnea and Reports dyspnea on exertion Gastrointestinal Gastrointestinal: Reports as per HPI, Denies abdominal pain, Denies hematochezia, Denies change in bowel habits, Denies nausea and Denies vomiting Musculoskeletal Musculoskeletal: Reports as per HPI, Denies abnormal gait, Denies back pain, Denies limited range of motion, Denies muscle cramps and Denies radiating pain into limb Integumentary/Breasts Skin/Breast: Reports as per HPI, Denies skin ulcer and Denies wounds Neurologic Neurologic: Reports as per HPI, Reports Normal hearing present, Denies abnormal gait, Denies dizziness, Denies focal weakness and Denies convulsions Psychiatric Psychiatric: Reports no additional psychiatric complaints, Reports as per HPI, Denies depression and Denies mood swings Endocrine Endocrine: Reports as per HPI and Denies palpitations Hematologic/Lymphatic Hematologic/Lymphatic: Reports as per HPI Allergic/Immunologic Allergic/Immunologic: Reports as per HPI Physical Exam Vital Signs: Vital Signs: Last Vital Signs Temp 96.9 F 01/17/23 07:45 Pulse 76 01/17/23 08:40 Resp 16 01/17/23 08:40 BP 168/69 H 01/17/23 07:45 Pulse Ox 96 01/17/23 07:45 O2 Del Method Room Air 01/17/23 03:12 O2 Flow Rate 2 01/16/23 07:13 BMI result Body Mass Index 23.6 Const: General: cooperative, comfortable, no acute distress, alert and awake Nutritional Appearance: average body habitus Orientation/consciousness: patient oriented x3 Resp: Effort & Inspection: normal respiratory effort, able to speak in complete sentences, no respiratory distress and no use of accessory muscles Auscultation: clear to auscultation bilaterally Cardio: Rate: regular rate Heart sounds: S1 normal heart sound present and S2 normal heart sound present GI: Inspection: No distended Palpation (GI): Soft to palpation and nontender Skin: Other: Neuro: General: patient oriented x3, moves all extremities and CN's II-XI intact bilaterally Cranial nerves: Yes Normal hearing present Extrem: General: Yes no pedal edema Objective Data Active Medications Acetaminophen (Acetaminophen 325 Mg Tablet) 650 mg PO Q6H PRN PRN Reason: Pain, Mild (Pain Scale 1-3) Last Admin: 01/15/23 09:54 Dose: 650 mg Documented By: JEFFERSON Albuterol/Ipratropium (Albuterol/Iprat 2.5/0.5mg 3 Ml Ampul.Neb) 3 ml INHALE Q6H PRN PRN Reason: shortness of breath/wheezing Last Admin: 01/16/23 05:47 Dose: 3 ml Documented By: WENDY Amlodipine Besylate (Amlodipine Besylate 10 Mg Tablet) 10 mg PO DAILY [facility]; Protocol Last Admin: 01/17/23 08:59 Dose: 10 mg Documented By: ARTHUR Aspirin (Aspirin 81 Mg Tab.Chew) 81 mg PO DAILY [facility] Last Admin: 01/17/23 08:59 Dose: 81 mg Documented By: ARTHUR Atorvastatin Calcium (Atorvastatin Calcium 40 Mg Tablet) 40 mg PO BEDTIME [facility] Last Admin: 01/16/23 20:44 Dose: 40 mg Documented By: STEWART Clopidogrel Bisulfate (Clopidogrel Bisulfate 75 Mg Tablet) 75 mg PO DAILY [facility] Last Admin: 01/17/23 08:59 Dose: 75 mg Documented By: ARTHUR Dextrose (Dextrose 50 % 25 Gm/50 Ml Syringe) 25 gm IVPUSH Q15M PRN; Protocol PRN Reason: per Hypoglycemia Standing Ord. Docusate Sodium (Docusate Sodium 100 Mg Capsule) 100 mg PO DAILY PRN PRN Reason: Constipation Enoxaparin Sodium (Enoxaparin Sodium 30 Mg/0.3 Ml Syringe) 30 mg SUBCUT Q24H [facility] Last Admin: 01/16/23 17:19 Dose: 30 mg Documented By: SUSANA Fluticasone/Vilanterol (Fluticasone/Vilanterol 200/25 Blst.W.Dev) 1 puff INHALE RDAILY [facility] Last Admin: 01/17/23 08:36 Dose: 1 puff Documented By: BELLO Glucose (Glucose Gel 15 Gm Gel..Gram.) 15 gm PO Q15M PRN; Protocol PRN Reason: per Hypoglycemia Standing Ord. Cefepime HCl 2 gm/ Sodium (Chloride) 50 mls @ 100 mls/hr IV Q12H [facility] Last Admin: 01/17/23 08:58 Dose: 100 mls/hr Documented By: ARTHUR Promethazine HCl 6.25 mg/ (Sodium Chloride) 50.25 mls @ 201 mls/hr IV Q4H PRN PRN Reason: Nausea Last Infusion: 01/15/23 17:50 Dose: 0 mls/hr Documented By: SUSANA Lactated Ringer's (Lr) 1,000 mls @ 100 mls/hr IVCONT .Q10H [facility] Last Admin: 01/17/23 08:58 Dose: 100 mls/hr Documented By: ARTHUR Meropenem 1 gm/ Sodium (Chloride) 100 mls @ 200 mls/hr IV Q12H [facility] Last Infusion: 01/17/23 06:24 Dose: 0 mls/hr Documented By: STEWART Insulin Human Lispro (Insulin Lispro 100 Unit/Ml 3 Ml Vial) 0 unit SUBCUT QIDACHS [facility]; Protocol Last Admin: 01/17/23 08:47 Dose: Not Given Documented By: ARTHUR Non-Admin Reason: No Insulin Coverage Lisinopril (Lisinopril 40 Mg Tablet) 40 mg PO DAILY [facility]; Protocol Last Admin: 01/17/23 08:59 Dose: 40 mg Documented By: ARTHUR Lorazepam (Lorazepam 0.5 Mg Tablet) 0.5 mg PO DAILY PRN PRN Reason: Anxiety Last Admin: 01/16/23 12:05 Dose: 0.5 mg Documented By: SUSANA Metoprolol Tartrate (Metoprolol Tartrate 100 Mg Tablet) 200 mg PO BID [facility]; Protocol Last Admin: 01/17/23 08:58 Dose: 200 mg Documented By: ARTHUR Morphine Sulfate (Morphine Sulfate 2 Mg/Ml Cartridge) 2 mg IVPUSH Q4H PRN; Protocol PRN Reason: Pain, Mild (Pain Scale 1-3) Last Admin: 01/14/23 21:02 Dose: 2 mg Documented By: LEOLA Morphine Sulfate (Morphine Sulfate 4 Mg/Ml Cartridge) 4 mg IVPUSH Q2H PRN; Protocol PRN Reason: Pain, Severe (Pain Scale 7-10) Nicotine (Nicotine 14 Mg Patch.Td24) 14 mg TRANSDERMA DAILY [facility] Last Admin: 01/17/23 08:59 Dose: Not Given Documented By: ARTHUR Non-Admin Reason: Patient Refused Nortriptyline HCl (Nortriptyline Hcl 25 Mg Capsule) 25 mg PO BEDTIME PRN PRN Reason: Back Pain / foot pain Omeprazole (Omeprazole 40 Mg Capsule.Dr) 40 mg PO DAILY@0630 [facility] Last Admin: 01/17/23 05:36 Dose: 40 mg Documented By: STEWART Ondansetron HCl (Ondansetron Hcl 4 Mg/2 Ml Vial) 4 mg IVPUSH Q8H PRN PRN Reason: Nausea and Vomiting Last Admin: 01/15/23 18:25 Dose: 4 mg Documented By: MAURICIOORRJacob Oxycodone HCl (Oxycodone Hcl Immed Release 5 Mg Tablet) 5 mg PO Q4H PRN PRN Reason: Pain, Moderate(Pain Scale 4-6) Sodium Chloride (0.9 % Sodium Chloride Flush 3 Ml Syringe) 3 ml IVFLUSH QSHIFT [facility] Last Admin: 01/17/23 08:57 Dose: Not Given Documented By: ARTHUR Non-Admin Reason: IV Running Vitamin D (Cholecalciferol (Vitamin D3) 25 Mcg Tablet) 25 mcg PO DAILY [facility] Last Admin: 01/17/23 08:58 Dose: 25 mcg Documented By: ARTHUR Labs 01/16/23 06:37 01/17/23 05:56 Labs: Laboratory Results - last 24 hr 01/16/23 01/16/23 01/16/23 08:36 11:21 15:56 VBG pH VBG pCO2 VBG pO2 VBG HCO3 VBG O2 Saturation VBG Base Excess Anion Gap 20 Estim Creat Clear Calc 31.6 Estimated GFR 46 POC Glucose 161 H Random Glucose 72 Calcium 8.7 Random Vancomycin 16.7 01/16/23 01/16/23 01/16/23 15:56 16:03 16:14 VBG pH 7.27 L VBG pCO2 24 VBG pO2 152 VBG HCO3 11 L VBG O2 Saturation 100.0 VBG Base Excess -13.4 Anion Gap 19 Estim Creat Clear Calc 27.4 Estimated GFR 39 POC Glucose 177 H Random Glucose 176 H Calcium 9.0 Random Vancomycin 01/16/23 01/17/23 01/17/23 19:32 05:56 05:57 VBG pH 7.33 VBG pCO2 29 VBG pO2 44 VBG HCO3 16 L VBG O2 Saturation 77.0 VBG Base Excess -8.3 Anion Gap 17 Estim Creat Clear Calc 29.6 Estimated GFR 42 POC Glucose 120 H Random Glucose 88 Calcium 9.6 D Random Vancomycin 01/17/23 06:59 VBG pH VBG pCO2 VBG pO2 VBG HCO3 VBG O2 Saturation VBG Base Excess Anion Gap Estim Creat Clear Calc Estimated GFR POC Glucose 110 Random Glucose Calcium Random Vancomycin Assessment and Plan (1) PAD (peripheral artery disease): Status: Acute (2) Diabetic foot ulcer: Status: Acute Plan 77-year-old female with history of coronary artery disease, carotid artery occlusion, [id number] type 2 diabetes, GERD, hypertension, and CKD stage 3 who is a current 1/2 pack per day smoker and marijuana user admitted for infected diabetic foot ulcer of the left great toe with concern for osteomyelitis. Acute anion gap metabolic acidosis, euvolemic DKA beta-hydroxybuterate elevated, AGAP resolved, Bicab still low however at 15 no indication for insulin drip at this time Acute infected unstageable ulcer left great toe due to uncontrolled diabetes/PAD WBC 11.2, VSS. No sepsis ESR 73, CRP 1.7. Continue IV vanco and cefepime started 01/13 General surgery consult- may benefit from debridement at some point in the future seen by vascular as below MRI obtained - showing mild or early osteomyelitis of the 1st distal phalanx most prominent at the tuft ID rec: Six week IV Ertapenem? 1 g daily (.5 g if GFR less than 30). Weekly CBC ,creatinine,SGOT. PICC line thursday PVD LLE arterial doppler > with peripheral vascular disease, seen by vascular s/p left SFA atherectomy and plasty, left external iliac plasty and stent placement 01/15 continue asa, plavix, statin smoking cessation advised vascular surgery following [id number] type 2 diabetes with hyperglycemia A1C 9.3 needs better control continue SSI, ada diet hypertension continue amlodipine, metoprolol, lisinopril coronary artery disease continue aspirin, statin, beta-hilda CKD stage 3 kidney function has trended up somwhat continue IVF renal function baseline tobacco dependence smoking cessation advised NRT COPD no acute exacerbation continue formulary equivalent for Symbicort, p.r.n. breathing treatments DVT prophylaxis- early ambulation For DNR/DNI Attending Dr. Purvis continued hospital stay for management of infected diabetic foot ulcer requiring IV antibiotics and possible surgical debridement as well as concern for osteomyelitis requiring further imaging and possible long-term antibiotics with expert consultation Time Spent With Patient Time: Total time managing care of this patient today ____ minutes. Quality Stroke Does the patient have a stroke diagnosis?: No VTE Prior VTE?: No VTE Risk Level:: Medical - moderate - high VTE Device Contraindication: Treatment Not Indicated VTE Drug Contraindication: N/A - Med Ordered
[2023-01-17 11:42] LABS: Glucose, Whole Blood 154 mg/dL (60-115)
[2023-01-17 15:38] LABS: Glucose, Whole Blood 123 mg/dL (60-115)
[2023-01-17 16:00] VITALS: BP 157/78; PULSE 75; RESP 18; TEMP 36.6; O2SAT 95
[2023-01-17] MEDS: Enoxaparin Sodium 30 MG/0.3 ML SYRINGE SUBCUT (17:32)
[2023-01-17 19:46] VITALS: BP 168/72; PULSE 79; RESP 20; TEMP 36.7; O2SAT 94
[2023-01-17] MEDS: oxyCODONE HCl Immed Release 5 MG TABLET PO (20:46)
[2023-01-17] MEDS: Atorvastatin Calcium 40 MG TABLET PO (20:46)
[2023-01-17 21:36] LABS: Glucose, Whole Blood 198 mg/dL (60-115)
[2023-01-17] MEDS: Insulin Lispro 100 UNIT/ML 3 ML VIAL SUBCUT (21:48)
[2023-01-18 03:09] VITALS: BP 143/70; PULSE 70; RESP 19; TEMP 36.6; O2SAT 91
[2023-01-18] MEDS: Omeprazole 40 MG CAPSULE.DR PO (06:42)
[2023-01-18 06:46] LABS: Creatinine Clr Calc Pharmacy 28.8; Estimated Glomerular Filt Rate 41
[2023-01-18 07:43] VITALS: BP 183/73; PULSE 80; RESP 20; TEMP 37.1; O2SAT 95
[2023-01-18 07:45] LABS: Glucose, Whole Blood 100 mg/dL (60-115)
[2023-01-18] MEDS: Fluticasone/Vilanterol 200/25 BLST.W.DEV 1 PUFF INHALE (07:46)
[2023-01-18 07:49] VITALS: PULSE 88; RESP 18; O2SAT 94
--- NOTE | 2023-01-18 08:01 | PM.PNNEP ---
Subjective Subjective Date of Service: 01/18/23 Interval history: seen and examined no complaints Physical Exam Vital Signs: Vital Signs: Last Vital Signs Temp 98.8 F 01/18/23 07:43 Pulse 88 01/18/23 07:49 Resp 18 01/18/23 07:49 BP 183/73 H 01/18/23 07:43 Pulse Ox 95 01/18/23 07:43 O2 Del Method Room Air 01/18/23 07:43 O2 Flow Rate 2 01/16/23 07:13 BMI result Body Mass Index 23.6 Const: General: alert and awake HEENT: Head: Yes normocephalic and Yes atraumatic Neck: Neck: Yes supple Resp: Effort & Inspection: decreased respiratory effort Cardio: Heart sounds: S1 normal heart sound present and S2 normal heart sound present GI: Palpation (GI): nontender Extrem: General: No edema Objective Data Labs 01/16/23 06:37 01/18/23 06:04 Labs: Laboratory Results - last 24 hr 01/17/23 01/17/23 01/17/23 11:07 15:29 21:32 Creatinine Estim Creat Clear Calc Estimated GFR POC Glucose 154 H 123 H 198 H 01/18/23 01/18/23 06:04 07:39 Creatinine 1.27 Estim Creat Clear Calc 28.8 Estimated GFR 41 POC Glucose 100 Microbiology Microbiology Results: Microbiology 01/13/23 16:44 Blood - Venous Blood Culture - Preliminary No growth after 48 hours. 01/13/23 16:44 Blood - Venous Blood Culture - Preliminary No growth after 48 hours. Procedures Date of Service Date of Service: 01/18/23 Assessment & Plan Assessment and plan (1) Diabetic ketoacidosis: Status: Acute (2) CKD (chronic kidney disease) stage 3, GFR 30-59 ml/min: Status: Acute Plan euglycemic diabetic keto acidosis due nto SGTL2i known CKD due to DM/HTN baseline Scr ~ 1.2 mg/dl REC hold SGTL2i follow kidney function and electrolytes o/p renal f/u Time Spent With Patient Time: Total time managing care of this patient today ____ minutes. Progress Note: Quality Stroke Does the patient have a stroke diagnosis?: No
[2023-01-18 08:16] LABS: Anion Gap 17 (12-20); Blood Urea Nitrogen 9 mg/dL (9-16); Calcium 9.8 mg/dL (8.4-10.2); Carbon Dioxide 16 mmol/L (22-29); Chloride 107 mmol/L (96-108); Glucose Random 85 mg/dL (60-115); Potassium 3.2 mmol/L (3.3-5.1); Sodium 137 mmol/L (135-145)
[2023-01-18] MEDS: amLODIPine Besylate 10 MG TABLET PO (08:34)
[2023-01-18] MEDS: Clopidogrel Bisulfate 75 MG TABLET PO (08:34)
[2023-01-18] MEDS: lisinopriL 40 MG TABLET PO (08:34)
[2023-01-18] MEDS: Aspirin 81 MG TAB.CHEW PO (08:34)
[2023-01-18] MEDS: Metoprolol Tartrate 100 MG TABLET 200 MG PO ×2 (08:34→22:18)
[2023-01-18] MEDS: Cholecalciferol (Vitamin D3) 25 MCG TABLET PO (08:34)
--- NOTE | 2023-01-18 10:29 | PC.NURSE ---
pt had leaking IV on morming assessment. this nurse tried to start a new IV but pt has been stuck so many time due to tender arms, hard stick and hurts to even put the tourniquet on. pt has very fragile skin, doesnt want to be stuck any more. PA notified. now paused IV LR and unable to get a dose of IV abx today at 1815.
--- NOTE | 2023-01-18 10:38 | P.PNIM_ITS ---
Subjective Subjective Date of Service: 01/18/23 Interval History: seen and examined this morning follow up for nonhealing foot ulcer feeling frustrated with being in the hospital, wants to go home doesn't like the food here no toe/foot pain Review of Systems Review of Systems: Yes all other systems are reviewed and are negative Constitutional Constitutional: Denies chills and Denies fever(s) ENT Ears, Nose, Mouth, and Throat: Denies dizziness Cardiovascular Cardiovascular: Denies chest pain, Denies palpitations and Denies dyspnea Respiratory Respiratory: Denies cough and Denies dyspnea Gastrointestinal Gastrointestinal: Denies abdominal pain, Denies diarrhea, Denies nausea and Denies vomiting Neurologic Neurologic: Denies dizziness Endocrine Endocrine: Denies palpitations Physical Exam Vital Signs: Vital Signs: Last Vital Signs Temp 98.8 F 01/18/23 07:43 Pulse 88 01/18/23 07:49 Resp 18 01/18/23 07:49 BP 183/73 H 01/18/23 07:43 Pulse Ox 95 01/18/23 07:43 O2 Del Method Room Air 01/18/23 07:43 O2 Flow Rate 2 01/16/23 07:13 BMI result Body Mass Index 23.6 Const: Other: tearful, frustrated General: cooperative, alert and awake Nutritional Appearance: average body habitus Orientation/consciousness: patient oriented x3 Resp: Effort & Inspection: normal respiratory effort, able to speak in complete sentences, no respiratory distress and no use of accessory muscles Auscultation: clear to auscultation bilaterally Cardio: Rate: regular rate Heart sounds: S1 normal heart sound present and S2 normal heart sound present GI: Inspection: No distended Palpation (GI): Soft to palpation and nontender Skin: Other: left great toe appears similar, dry eschar at base, no fluctuance or drainage, mild surrounding erythema multiple areas of bruising to b/l arms Neuro: General: patient oriented x3, moves all extremities and CN's II-XI intact bilaterally Extrem: General: Yes no pedal edema Objective Data Active Medications Acetaminophen (Acetaminophen 325 Mg Tablet) 650 mg PO Q6H PRN PRN Reason: Pain, Mild (Pain Scale 1-3) Last Admin: 01/15/23 09:54 Dose: 650 mg Documented By: JEFFERSON Albuterol/Ipratropium (Albuterol/Iprat 2.5/0.5mg 3 Ml Ampul.Neb) 3 ml INHALE Q6H PRN PRN Reason: shortness of breath/wheezing Last Admin: 01/16/23 05:47 Dose: 3 ml Documented By: WENDY Amlodipine Besylate (Amlodipine Besylate 10 Mg Tablet) 10 mg PO DAILY [facility]; Pro tocol Last Admin: 01/18/23 08:34 Dose: 10 mg Documented By: MAGNOLIA Aspirin (Aspirin 81 Mg Tab.Chew) 81 mg PO DAILY [facility] Last Admin: 01/18/23 08:34 Dose: 81 mg Documented By: MAGNOLIA Atorvastatin Calcium (Atorvastatin Calcium 40 Mg Tablet) 40 mg PO BEDTIME [facility] Last Admin: 01/17/23 20:46 Dose: 40 mg Documented By: LOUANN Clopidogrel Bisulfate (Clopidogrel Bisulfate 75 Mg Tablet) 75 mg PO DAILY [facility] Last Admin: 01/18/23 08:34 Dose: 75 mg Documented By: MAGNOLIA Dextrose (Dextrose 50 % 25 Gm/50 Ml Syringe) 25 gm IVPUSH Q15M PRN; Protocol PRN Reason: per Hypoglycemia Standing Ord. Docusate Sodium (Docusate Sodium 100 Mg Capsule) 100 mg PO DAILY PRN PRN Reason: Constipation Enoxaparin Sodium (Enoxaparin Sodium 30 Mg/0.3 Ml Syringe) 30 mg SUBCUT Q24H [facility] Last Admin: 01/17/23 17:32 Dose: 30 mg Documented By: ARTHUR Fluticasone/Vilanterol (Fluticasone/Vilanterol 200/25 Blst.W.Dev) 1 puff INHALE RDAILY [facility] Last Admin: 01/18/23 07:46 Dose: 1 puff Documented By: JASMYNE Glucose (Glucose Gel 15 Gm Gel..Gram.) 15 gm PO Q15M PRN; Protocol PRN Reason: per Hypoglycemia Standing Ord. Promethazine HCl 6.25 mg/ (Sodium Chloride) 50.25 mls @ 201 mls/hr IV Q4H PRN PRN Reason: Nausea Last Infusion: 01/15/23 17:50 Dose: 0 mls/hr Documented By: MAURICIOORRJacob Lactated Ringer's (Lr) 1,000 mls @ 100 mls/hr IVCONT .Q10H [facility] Last Infusion: 01/18/23 08:18 Dose: 0 mls/hr Documented By: MAGNOLIA Meropenem 1 gm/ Sodium (Chloride) 100 mls @ 200 mls/hr IV Q12H [facility] Last Infusion: 01/18/23 07:30 Dose: 0 mls/hr Documented By: MAGNOLIA Insulin Human Lispro (Insulin Lispro 100 Unit/Ml 3 Ml Vial) 0 unit SUBCUT QIDACHS [facility]; Protocol Last Admin: 01/18/23 07:57 Dose: Not Given Documented By: MAGNOLIA Non-Admin Reason: No Insulin Coverage Lisinopril (Lisinopril 40 Mg Tablet) 40 mg PO DAILY [facility]; Protocol Last Admin: 01/18/23 08:34 Dose: 40 mg Documented By: MAGNOLIA Lorazepam (Lorazepam 0.5 Mg Tablet) 0.5 mg PO DAILY PRN PRN Reason: Anxiety Last Admin: 01/16/23 12:05 Dose: 0.5 mg Documented By: SUSANA Metoprolol Tartrate (Metoprolol Tartrate 100 Mg Tablet) 200 mg PO BID [facility]; Protocol Last Admin: 01/18/23 08:34 Dose: 200 mg Documented By: MAGNOLIA Morphine Sulfate (Morphine Sulfate 4 Mg/Ml Cartridge) 4 mg IVPUSH Q2H PRN; Protocol PRN Reason: Pain, Severe (Pain Scale 7-10) Nicotine (Nicotine 14 Mg Patch.Td24) 14 mg TRANSDERMA DAILY [facility] Last Admin: 01/18/23 08:34 Dose: Not Given Documented By: MAGNOLIA Non-Admin Reason: Patient Refused Nortriptyline HCl (Nortriptyline Hcl 25 Mg Capsule) 25 mg PO BEDTIME PRN PRN Reason: Back Pain / foot pain Omeprazole (Omeprazole 40 Mg Capsule.Dr) 40 mg PO DAILY@0630 [facility] Last Admin: 01/18/23 06:42 Dose: 40 mg Documented By: CALVIN Ondansetron HCl (Ondansetron Hcl 4 Mg/2 Ml Vial) 4 mg IVPUSH Q8H PRN PRN Reason: Nausea and Vomiting Last Admin: 01/15/23 18:25 Dose: 4 mg Documented By: SUSANA Oxycodone HCl (Oxycodone Hcl Immed Release 5 Mg Tablet) 5 mg PO Q4H PRN PRN Reason: Pain, Moderate(Pain Scale 4-6) Last Admin: 01/17/23 20:46 Dose: 5 mg Documented By: LOUANN Sodium Chloride (0.9 % Sodium Chloride Flush 3 Ml Syringe) 3 ml IVFLUSH QSHIFT [facility] Last Admin: 01/18/23 08:34 Dose: Not Given Documented By: MAGNOLIA Non-Admin Reason: IV Running Vitamin D (Cholecalciferol (Vitamin D3) 25 Mcg Tablet) 25 mcg PO DAILY [facility] Last Admin: 01/18/23 08:34 Dose: 25 mcg Documented By: MAGNOLIA Labs 01/16/23 06:37 01/18/23 06:04 Labs: Laboratory Results - last 24 hr 01/17/23 01/17/23 01/17/23 11:07 15:29 21:32 Anion Gap Estim Creat Clear Calc Estimated GFR POC Glucose 154 H 123 H 198 H Random Glucose Calcium 01/18/23 01/18/23 06:04 07:39 Anion Gap 17 Estim Creat Clear Calc 28.8 Estimated GFR 41 POC Glucose 100 Random Glucose 85 Calcium 9.8 Assessment and Plan (1) Diabetic ketoacidosis: Status: Acute (2) PAD (peripheral artery disease): Status: Acute (3) Diabetic foot ulcer: Status: Acute Plan 77-year-old female with history of coronary artery disease, carotid artery occlusion, [id number] type 2 diabetes, GERD, hypertension, and CKD stage 3 who is a current 1/2 pack per day smoker and marijuana user admitted for infected diabetic foot ulcer of the left great toe with concern for osteomyelitis. Acute anion gap metabolic acidosis secondary to euvolemic DKA bicarb and anion gap have improved somewhat without intervention, pH improved to 7.3 no inidcation for insulin drip at this time continue IVF, POCs remain controlled d/c farxiga on discharge A1C 9.3 continue SSI, ada diet recommend outpatient endocrinology evaluation Acute infected unstageable ulcer left great toe and acute osteomyelitis due to uncontrolled diabetes/PAD No sepsis General surgery consult- may benefit from debridement at some point in the future seen by vascular as below MRI obtained - showing mild or early osteomyelitis of the 1st distal phalanx most prominent at the tuft seen by ID, rec to d/c with 6 weeks of Ertapenem 1 g daily (.5 g if GFR less than 30) - Monitor Weekly CBC, creatinine, SGOT initially treated with vanco and cefepime, changed to meropenem 01/17 PICC line ordered PVD LLE arterial doppler > with peripheral vascular disease, seen by vascular s/p left SFA atherectomy and plasty, left external iliac plasty and stent placement 01/15 continue asa, plavix, statin smoking cessation advised vascular surgery following hypertension continue amlodipine, metoprolol, lisinopril coronary artery disease continue aspirin, statin, beta-hilda CKD stage 3 kidney function has trended up somewhat continue IVF renal function baseline tobacco dependence smoking cessation advised NRT COPD no acute exacerbation continue formulary equivalent for Symbicort, p.r.n. breathing treatments Mood seen by psych for anxiety, depression rec to start mertazapine 7.5 mg at bedtime DVT prophylaxis- lovenox For DNR/DNI Attending Dr. Bradley continued hospital stay for PICC line placement for terminal gauger abx Time Spent With Patient Time: Total time managing care of this patient today ____ minutes. Quality Stroke Does the patient have a stroke diagnosis?: No VTE Prior VTE?: No VTE Risk Level:: Medical - moderate - high VTE Device Contraindication: Treatment Not Indicated VTE Drug Contraindication: N/A - Med Ordered
[2023-01-18 10:59] LABS: Glucose, Whole Blood 124 mg/dL (60-115)
[2023-01-18] MEDS: Potassium Chloride Packet 20 MEQ PACKET 40 MEQ PO (11:54)
--- NOTE | 2023-01-18 11:54 | MHC.CM.PN ---
PT is recommending STR. Per KARI/Bessie, Patient will be getting a PICC tomorrow, will need 6 weeks of IV Ertepenem and she wants to go home. Referrals have been made to [facility] and [facility]. CM will follow.
[2023-01-18] MEDS: Ondansetron ODT 4 MG TAB.RAPDIS TRANSLINGU (12:32)
[2023-01-18 15:37] VITALS: BP 158/72; PULSE 79; RESP 17; TEMP 36.3; O2SAT 94
[2023-01-18 16:22] LABS: Glucose, Whole Blood 150 mg/dL (60-115)
[2023-01-18] MEDS: Enoxaparin Sodium 30 MG/0.3 ML SYRINGE SUBCUT (17:10)
[2023-01-18] MEDS: oxyCODONE HCl Immed Release 5 MG TABLET PO (17:42)
[2023-01-18 19:16] VITALS: BP 156/70; PULSE 73; RESP 18; TEMP 36.9; O2SAT 91
[2023-01-18 20:35] LABS: Glucose, Whole Blood 170 mg/dL (60-115)
[2023-01-18] MEDS: Mirtazapine 7.5 MG TABLET PO (22:17)
[2023-01-18] MEDS: Atorvastatin Calcium 40 MG TABLET PO (22:17)
[2023-01-18] MEDS: 0.9 % Sodium Chloride Flush 3 ML SYRINGE IVFLUSH (22:18)
[2023-01-19 00:16] LABS: Glucose, Whole Blood 150 mg/dL (60-115)
[2023-01-19 03:08] VITALS: BP 153/67; PULSE 72; RESP 18; TEMP 37.2; O2SAT 97
[2023-01-19] MEDS: Omeprazole 40 MG CAPSULE.DR PO (06:37)
[2023-01-19 07:24] LABS: Creatinine Clr Calc Pharmacy 32.1; Estimated Glomerular Filt Rate 46
[2023-01-19 07:41] VITALS: BP 165/70; PULSE 74; RESP 20; TEMP 36.8; O2SAT 93
[2023-01-19] MEDS: Fluticasone/Vilanterol 200/25 BLST.W.DEV 1 PUFF INHALE (07:54)
[2023-01-19 07:55] VITALS: PULSE 79; RESP 18; O2SAT 95
[2023-01-19 07:55] LABS: Glucose, Whole Blood 108 mg/dL (60-115)
[2023-01-19] MEDS: Cholecalciferol (Vitamin D3) 25 MCG TABLET PO (08:16)
[2023-01-19] MEDS: lisinopriL 40 MG TABLET PO (08:16)
[2023-01-19] MEDS: Aspirin 81 MG TAB.CHEW PO (08:16)
[2023-01-19] MEDS: amLODIPine Besylate 10 MG TABLET PO (08:16)
[2023-01-19] MEDS: Metoprolol Tartrate 100 MG TABLET 200 MG PO (08:16)
[2023-01-19] MEDS: Clopidogrel Bisulfate 75 MG TABLET PO (08:16)
[2023-01-19 09:57] LABS: Anion Gap 19 (12-20); Blood Urea Nitrogen 7 mg/dL (9-16); Calcium 9.2 mg/dL (8.4-10.2); Carbon Dioxide 16 mmol/L (22-29); Chloride 107 mmol/L (96-108); Estimated Glomerular Filt Rate 45; Glucose Random 126 mg/dL (60-115); Potassium 3.7 mmol/L (3.3-5.1); Sodium 138 mmol/L (135-145)
[2023-01-19] MEDS: 0.9 % Sodium Chloride Flush 3 ML SYRINGE IVFLUSH ×2 (10:53→17:04)
[2023-01-19 11:22] LABS: Glucose, Whole Blood 176 mg/dL (60-115)
--- NOTE | 2023-01-19 11:43 | HO.VASCPN ---
Subjective Subjective Date of Service: 01/19/23 Patient reports: no new complaints and feels better Interval history: Patient seen and examined. No significant events overnight. She reports that the left leg the pain has significantly improved. Erythema and discomfort have decreased as well. She is awaiting PICC line placement for long-term IV antibiotics. Tolerating a diet with no other issues at the current time. Physical Exam Vital Signs: Vital Signs: Last Vital Signs Temp 98.3 F 01/19/23 07:41 Pulse 79 01/19/23 07:55 Resp 18 01/19/23 07:55 BP 165/70 H 01/19/23 07:41 Pulse Ox 93 01/19/23 07:41 O2 Del Method Room Air 01/19/23 07:41 O2 Flow Rate 2 01/16/23 07:13 BMI result Body Mass Index 23.6 Const: General: cooperative, healthy appearing and no acute distress Orientation/consciousness: oriented to person, oriented to place and oriented to time HEENT: Head: Yes normal to inspection Neck: Carotids: no bruits Chest: Chest palpation & inspection: normal inspection of the chest Resp: Effort & Inspection: normal respiratory effort and able to speak in complete sentences Auscultation: clear to auscultation bilaterally Cardio: Other: Left leg palpable dorsalis pedis pulse Rate: regular rate Heart sounds: S1 normal heart sound present and S2 normal heart sound present GI: Inspection: Yes normal to inspection Skin: Other: Left great toe dry eschar on the plantar aspect. General skin exam: no rashes or lesions noted Wounds: no wounds Neuro: General: oriented to person, oriented to place, oriented to time and CN's II-XI intact bilaterally Extrem: General: Yes normal to inspection, Yes full ROM and Yes no clubbing, cyanosis or edema Psych: Appearance: grossly normal and well kempt Speech and movement: Normal speech and movement present Affect: normal affect Progress Note: A&P Assessment and plan (1) PAD (peripheral artery disease): Status: Acute Assessment and Plan: In short patient has done well status post endovascular intervention. I do believe the left leg is improving slowly. At the current time I would leave the eschar and continue with long-term IV antibiotics as there is concern for underlying osteomyelitis. In addition she is stable from my perspective for discharge in can see me as an outpatient. Once her foot stabilizes will consider debridement at that point. In addition she will need to be discharged on aspirin and Plavix for a total of 6 months in duration. Thank you for allowing us to participate in her care. If there are any questions or concerns please do not hesitate to contact us. Time Spent With Patient Time: Total time managing care of this patient today ____ minutes. Procedures Date of Service Date of Service: 01/19/23 Quality Stroke Does the patient have a stroke diagnosis?: No VTE Prior VTE?: No VTE Risk Level:: Medical - moderate - high VTE Device Contraindication: Treatment Not Indicated VTE Drug Contraindication: N/A - Med Ordered
--- NOTE | 2023-01-19 12:18 | PM.PNNEP ---
Subjective Subjective Date of Service: 01/19/23 Interval history: seen and examined I want to go home Physical Exam Vital Signs: Vital Signs: Last Vital Signs Temp 98.3 F 01/19/23 07:41 Pulse 79 01/19/23 07:55 Resp 18 01/19/23 07:55 BP 165/70 H 01/19/23 07:41 Pulse Ox 93 01/19/23 07:41 O2 Del Method Room Air 01/19/23 07:41 O2 Flow Rate 2 01/16/23 07:13 BMI result Body Mass Index 23.6 Const: General: alert and awake HEENT: Head: Yes normocephalic and Yes atraumatic Neck: Neck: Yes supple Resp: Effort & Inspection: decreased respiratory effort Cardio: Heart sounds: S1 normal heart sound present and S2 normal heart sound present GI: Palpation (GI): nontender Extrem: General: No edema Objective Data Labs 01/16/23 06:37 01/19/23 09:03 Labs: Laboratory Results - last 24 hr 01/18/23 01/18/23 01/18/23 15:57 16:15 20:31 Sodium Potassium Chloride Carbon Dioxide Anion Gap BUN Creatinine Estim Creat Clear Calc Estimated GFR POC Glucose 150 H 170 H Random Glucose Calcium Random Vancomycin 9.0 L 01/18/23 01/19/23 01/19/23 22:35 06:38 07:47 Sodium Potassium Chloride Carbon Dioxide Anion Gap BUN Creatinine 1.14 Estim Creat Clear Calc 32.1 Estimated GFR 46 POC Glucose 150 H 108 Random Glucose Calcium Random Vancomycin 01/19/23 01/19/23 09:03 11:12 Sodium 138 Potassium 3.7 Chloride 107 Carbon Dioxide 16 L Anion Gap 19 BUN 7 L Creatinine 1.18 Estim Creat Clear Calc 31.0 Estimated GFR 45 POC Glucose 176 H Random Glucose 126 H Calcium 9.2 D Random Vancomycin Microbiology Microbiology Results: Microbiology 01/13/23 16:44 Blood - Venous Blood Culture - Final No growth after 5 days. 01/13/23 16:44 Blood - Venous Blood Culture - Final No growth after 5 days. Procedures Date of Service Date of Service: 01/19/23 Assessment & Plan Assessment and plan (1) Diabetic ketoacidosis: Status: Acute (2) CKD (chronic kidney disease) stage 3, GFR 30-59 ml/min: Status: Acute Plan euglycemic diabetic keto acidosis due to SGTL2i known CKD due to DM/HTN baseline Scr ~ 1.2 mg/dl REC can have PICC line hold SGTL2i follow kidney function and electrolytes o/p renal f/u Time Spent With Patient Time: Total time managing care of this patient today ____ minutes. Progress Note: Quality Stroke Does the patient have a stroke diagnosis?: No
[2023-01-19] MEDS: Insulin Lispro 100 UNIT/ML 3 ML VIAL SUBCUT (12:36)
[2023-01-19] MEDS: oxyCODONE HCl Immed Release 5 MG TABLET PO (12:37)
--- NOTE | 2023-01-19 16:03 | HO.PICC ---
PICC Line Insertion NPICC Diagnosis: [Left foot infection] Indication: [Penitentiary Antibx] Pertinent Labs: [Reviewed] Technique: Following informed consent including risks, benefits and alternatives and using sterile technique including cap and mask, sterile gown, glove and drape, the Right arm was prepped and draped in the usual sterile fashion of full barrier technique with CHG. Following completion of [facility] Protocol the skin and soft tissues were anesthetized with 1% Lidocaine plain. Using ultrasound guidance, Right Brachial vein access was obtained by Dr Negrete. Over an 0.018 wire through peel-away sheath, a 4FR Single Lumen PASV line was positioned by Belkys Minaya RN. Catheter length is 36CM internal length, 1cm external length, for a total trimmed length of 37cm. The procedure was performed in Rm. 272. Tip verification was performed by Chadwick Bell with Sherlock 3CG. Tip located in SVC. Ultrasound was used to document vein patency and for needle entry. A formal ultrasound picture and cardiac rhythm strip was recorded. Vascular Care Transition Coordinator has released the line for use and it is currently dressed with a StatLock, Tegaderm, and CHG disc. Verification has been performed for blood return and line patency. Dr Martinez gave Nephrology Clearance for this PICC placement. Arm Circumference: 25.5cm Equipment: [employer] POWERPICC SOLO CATHETER Catheter Type: 4FR Single Lumen PASV PICC Line Lot #: [id number]
--- NOTE | 2023-01-19 16:41 | MHC.CM.PN ---
EMR reviewed and per MD rounds, pt medically cleared for D/C home with new vna and [facility] infusion. Pt awaiting PICC line insertion and first dose of IV abx. Pt will go home with new [facility], pts family will transport her home.
[2023-01-19 16:47] LABS: Glucose, Whole Blood 137 mg/dL (60-115)
[2023-01-19] MEDS: Ertapenem Sodium 1 GM in 0.9 % Sodium Chloride 50 ML IV (17:05)
--- NOTE | 2023-01-19 17:11 | W.MHC.F2F ---
Service Date Service Date: 01/19/23 Encounter Date of encounter: 01/19/23 Reasons for Services Signs and symptoms assessed: Diabetic foot ulcer, osteomyelitis Reason for senior living: administration of IV, SQ, or IM injection Homebound: Leaving the home is medically contraindicated at this time without the asist of a device and/or another person due th the listed conditions above and below. Reason homebound: unsteady gait / fall risk Certification: Based on the above findings, I certify that this patient is confined to the home and needs intermittent senior living care, physical therapy and/or speech therapy, or continues to need occupational therapy. The patient is under my care, and I have initiated the establishment of the plan of care. The patient will be followed by a physician who will periodically review the plan of care. Time Spent With Patient Time: Total time managing care of this patient today ____ minutes.
--- NOTE | 2023-01-19 17:12 | P.DS_ITS ---
DS: Providers Provider Date of Service: 01/19/23 Date of admission: 01/13/23 20:52 Primary care physician: Gene Sanchez MD Consults: 01/13/23 21:01 Consult to General Surgery Routine Consulting Provider: [facility] Reason for consultation: diabetic foot ulcer left great toe 01/13/23 21:17 Consult to Psychiatry Routine Consulting Provider: [facility] Reason for consultation: anxiety, depression, hopelessness. Med eval 01/14/23 07:59 Consult to Vascular Surgery Routine Consulting Provider: Cole Mcginnis Reason for consultation: Left big toe ulcer 01/14/23 09:18 Consult to Psychiatry Stat Consulting Provider: [facility] Reason for consultation: Anxiety and depression 01/16/23 09:10 Consult to Nephrology Routine Consulting Provider: [facility] Reason for consultation: metabolic acidosis, bicarb 9, ph 7.1 Has provider been notified: No 01/16/23 14:41 Consult to Infectious Diseases Routine Consulting Provider: [facility] Reason for consultation: nonhealing foot ulcer, osteo Has provider been notified: No 01/19/23 08:22 Consult to Nephrology Routine Consulting Provider: Theo Martinez Reason for consultation: mid/picc line clearance DS: Diagnosis Discharge Diagnosis (1) Diabetic ketoacidosis: Status: Acute (2) CKD (chronic kidney disease) stage 3, GFR 30-59 ml/min: Status: Acute DS: Summary Hospital Course Hospital Course: History and physical as per admitting provider. 77-year-old female with history of coronary artery disease, carotid artery occlusion, qsq-ygyohim-ujhganyyj type 2 diabetes, GERD, hypertension, and CKD stage 3 who is a current 1/2 pack per day smoker and marijuana user who presented to the ED earlier today for evaluation of left great toe pain with suspected infection.? She states there may have been some trauma, feels she may have stepped on something several weeks ago and has developed a wound on the left great toe which has gradually been enlarging and has become increasingly painful.? She has poor balance at baseline ambulates with a cane but states her balance has been worse due to the wound.? She denies any fevers, chills, or purulent drainage.? Has never had similar wound or infection. On arrival, VSS.? There is a mild leukocytosis of 11.2.? Creatinine 1.22, BUN 10, creatinine clearance 30, electrolyte levels normal.? Initial lactic acid 3.2.? CRP 1.34, ESR 73.? XR of the left great toe shows soft tissue swelling with question of some air in the subcutaneous tissues but no definitive evidence of osteomyelitis.? In the ED, was given 1700 mL IV fluids, IV Zosyn, and IV vancomycin. Pt is also noted to be incredibly anxious and tearful. Very overwhelmed by the situation. Discussion had with ED provider, myself, and patient to discuss need for inpt admission and pt ultimately agreeable. However, endorses significant anxiety about this. Reassurance offered. 77-year-old woman treated for acute infected unstageable left great toe ulcer with osteomyelitis secondary to uncontrolled diabetes mellitus. Initially patient was noted to be in anion gap metabolic acidosis secondary to euvolemic DKA. her bicarbonate anion gap improved without intervention as well as her pH and there was no indication for insulin drip. She was treated with IV fluids, her A1c was noted to be 9.3 she should continue sliding scale and following in diabetic diet at home. in outpatient endocrine evaluation may also be helpful. MRI Of the left foot showed early osteomyelitis to 1st distal phalanx. She was seen and evaluated by Infectious Disease with recommendation for 6 weeks of ertapenem 1 g. She was treated with meropenem while inpatient. PICC line was placed on 01/19. She had a left lower extremity arterial Doppler which showed peripheral vascular disease, she is status post left SFA atherectomy and plasty with a left external iliac stent placement. To continue aspirin, Plavix and statin and smoking cessation has been advised. She can follow up with vascular surgery outpatient as needed. she was also noted to be quite depressed while she was here. She was seen by the psych team and was started on Remeron for sleep. She should follow-up with an outpatient therapist for further monitoring and evaluation of her mental health. At this point patient will be discharge with visiting nurse service assisting with IV antibiotic administration. Hypertension. Continue amlodipine, metoprolol and lisinopril Coronary artery disease. Continue aspirin statin and beta-hilda CKD stage 3. No change during admission Tobacco dependence. Encouraged smoking cessation COPD. No exacerbation during admission. Continue home medications Time Spent with Patient Time attestation: Total time managing care of this patient today ____ minutes. Discharge coordination time: Greater than 30 minutes Quality: Safe Use of Opioids Does Pt have an Active Cancer Diagnosis on the Problem List?: No Quality: Stroke Does the patient have a stroke diagnosis?: No Physical Exam Vital Signs: Vital Signs: Last Vital Signs Temp 98.3 F 01/19/23 07:41 Pulse 79 01/19/23 07:55 Resp 18 01/19/23 07:55 BP 165/70 H 01/19/23 07:41 Pulse Ox 93 01/19/23 07:41 O2 Del Method Room Air 01/19/23 07:41 O2 Flow Rate 2 01/16/23 07:13 BMI result Body Mass Index 23.6 Appearing in no acute distress head is normocephalic atraumatic eyes pupils are PERRLA sclera is anicteric mouth throat mucous membranes are intact and moist neck is supple no lymphadenopathy, no JVD noted lung sounds are clear to auscultation heart regular rate rhythm, clear S1, S2 positive bowel sounds, abdomen is soft, nontender neuro patient is alert x3, no focal deficits Discoloration to left foot and great toe DS: Data Data Completed and Pending Labs on day of discharge: Laboratory Results - last 24 hr 01/18/23 01/18/23 01/19/23 20:31 22:35 06:38 Sodium Potassium Chloride Carbon Dioxide Anion Gap BUN Creatinine 1.14 Estim Creat Clear Calc 32.1 Estimated GFR 46 POC Glucose 170 H 150 H Random Glucose Calcium 01/19/23 01/19/23 01/19/23 07:47 09:03 11:12 Sodium 138 Potassium 3.7 Chloride 107 Carbon Dioxide 16 L Anion Gap 19 BUN 7 L Creatinine 1.18 Estim Creat Clear Calc 31.0 Estimated GFR 45 POC Glucose 108 176 H Random Glucose 126 H Calcium 9.2 D 01/19/23 16:44 Sodium Potassium Chloride Carbon Dioxide Anion Gap BUN Creatinine Estim Creat Clear Calc Estimated GFR POC Glucose 137 H Random Glucose Calcium Discharge Plan Discharge Anticipated Discharge Date/Time: 01/19/23 16:51 Patient Disposition: Home Health Service Discharge Diagnosis: Acute anion gap metabolic acidosis Acute osteomyelitis left great toe Peripheral vascular disease [facility]errals: [facility] [Other] - 1 Week [facility] [Outside] - 1 Week Gene Sanchez MD [Primary Care Provider] - 1 Week Discharge Medications: New ertapenem 1 gram recon soln 1 g IV DAILY 42 Days Qty: 10 0RF Continued nortriptyline 25 mg capsule 1 cap PO BEDTIME PRN (Reason: Back Pain / foot pain) budesonide-formoterol [Symbicort] 160-4.5 mcg/actuation HFA aerosol inhaler 1 puff PO BID PRN (Reason: Shortness Of Breath Or Wheezing) aspirin 81 mg tablet,delayed release (DR/EC) 81 mg PO DAILY Farxiga 5 mg tablet 5 mg PO DAILY atorvastatin 40 mg tablet 40 mg PO BEDTIME cholecalciferol (vitamin D3) 25 mcg (1,000 unit) capsule 25 mcg PO DAILY amlodipine 10 mg tablet 10 mg PO DAILY lisinopril 40 mg tablet 40 mg PO DAILY Januvia 50 mg tablet 50 mg PO DAILY nateglinide 60 mg tablet 60 mg PO TIDAC Rx Instructions: give before meal(s) metoprolol tartrate 100 mg tablet 200 mg PO BID omeprazole 40 mg capsule,delayed release(DR/EC) 40 mg PO DAILY@0630 Discharge Orders: Discharge Order (Routine); Ordered 01/19/23 Ordered By: Blaire Champagne Diet: Advance to usual diet Activity on Discharge: As tolerated Stand Alone Forms: Patient Portal Discharge page Other Ambulatory Orders: Complete Blood Count no Diff ( DIRECTED) Timeframe: 20230126 Facility: [facility] - Location: Laboratory Ordered By: Blaire Champagne Complete Blood Count no Diff ( DIRECTED) Timeframe: 20230127 Facility: [facility] - Location: Laboratory Ordered By: Blaire Champagne Complete Blood Count no Diff ( DIRECTED) Timeframe: 20230128 Facility: [facility] - Location: Laboratory Ordered By: Blaire Champagne Complete Blood Count no Diff ( DIRECTED) Timeframe: 20230129 Facility: [facility] - Location: Laboratory Ordered By: Blaire Champagne Complete Blood Count no Diff ( DIRECTED) Timeframe: 20230130 Facility: [facility] - Location: Laboratory Ordered By: Blaire Champagne Complete Blood Count no Diff ( DIRECTED) Timeframe: 20230131 Facility: [facility] - Location: Laboratory Ordered By: Blaire Champagne Creatinine ( DIRECTED) Timeframe: 20230126 Facility: [facility] - Location: Laboratory Ordered By: Blaire Champagne Creatinine ( DIRECTED) Timeframe: 20230127 Facility: [facility] - Location: Laboratory Ordered By: Blaire Champagne Creatinine ( DIRECTED) Timeframe: 20230128 Facility: [facility] - Location: Laboratory Ordered By: Blaire Champagne Creatinine ( DIRECTED) Timeframe: 20230129 Facility: [facility] - Location: Laboratory Ordered By: Blaire Champagne Creatinine ( DIRECTED) Timeframe: 20230130 Facility: [facility] - Location: Laboratory Ordered By: Blaire Champagne Creatinine ( DIRECTED) Timeframe: 20230131 Facility: [facility] - Location: Laboratory Ordered By: Blaire Champagne Liver Panel ( DIRECTED) Timeframe: 20230126 Facility: [facility] - Location: Laboratory Ordered By: Blaire Champagne Liver Panel ( DIRECTED) Timeframe: 20230127 Facility: [facility] - Location: Laboratory Ordered By: Blaire Champagne Liver Panel ( DIRECTED) Timeframe: 20230128 Facility: [facility] - Location: Laboratory Ordered By: Blaire Champagne Liver Panel ( DIRECTED) Timeframe: 20230129 Facility: [facility] - Location: Laboratory Ordered By: Blaire Champagne Liver Panel ( DIRECTED) Timeframe: 20230130 Facility: [facility] - Location: Laboratory Ordered By: Blaire Champagne Liver Panel ( DIRECTED) Timeframe: 20230131 Facility: [facility] - Location: Laboratory Ordered By: Blaire Champagne Care Plan Goals: complete resolution of symptoms Health Concerns: Acute anion gap metabolic acidosis Acute osteomyelitis left great toe Peripheral vascular disease Plan of Treatment: Continue 6 weeks of ertapenem, last day 03/02/2023. RN may remove PICC line after last dose check CBC, creatinine and SGOT weekly while on ertapenem Follow-up with vascular surgeon as needed Assessment: see discharge summary
== END 2023-01-19 19:00 | disposition home health service (06) | DRG 253 ==
LOC: HO.ED 20:46 → HO.EDOVER 21:10 → HO.IMC 01-15 14:08
PROVIDERS: Emergency Medicine; Internal Medicine; Physician Assistant Medical; Psychiatry & Neurology Psychiatry; Surgery Vascular Surgery; Admitting Provider Physician Assistant; Emergency Provider Emergency Medicine Emergency Medical Services; PCP Internal Medicine; Visit Provider Nurse Practitioner Acute Care
PROC: 047J3D1 Dilation of Left External Iliac Artery with Intraluminal Device, using Drug-Coated Balloon, Percutaneous Approach (ICD-10-PCS; principal; 2023-01-15 13:00)
PROC: 02HV33Z Insertion of Infusion Device into Superior Vena Cava, Percutaneous Approach (ICD-10-PCS; principal; 2023-01-19 15:00)
DX: E11.51 Type 2 diabetes mellitus with diabetic peripheral angiopathy without gangrene (principal); M86.172 Other acute osteomyelitis, left ankle and foot; E11.10 Type 2 diabetes mellitus with ketoacidosis without coma; L97.529 Non-pressure chronic ulcer of other part of left foot with unspecified severity; I70.245 Atherosclerosis of native arteries of left leg with ulceration of other part of foot; I25.10 Atherosclerotic heart disease of native coronary artery without angina pectoris; Z66 Do not resuscitate; E11.69 Type 2 diabetes mellitus with other specified complication; I12.9 Hypertensive chronic kidney disease with stage 1 through stage 4 chronic kidney disease, or unspecified chronic kidney disease; N18.30 Chronic kidney disease, stage 3 unspecified; E11.22 Type 2 diabetes mellitus with diabetic chronic kidney disease; Z79.82 Long term (current) use of aspirin; Z79.84 Long term (current) use of oral hypoglycemic drugs; Z79.899 Other long term (current) drug therapy
CPT/HCPCS: 36415; 36573; 37220; 37222; 37225; 73660; 73720; 76937; 80048; 80202; 81001; 82010; 82565; 82607; 82746; 82803; 82947; 83036; 83605; 84443; 85025; 85027; 85610; 85652; 85730; 86140; 87040; 93926; 94640; 94664; 97116; 97162; 99152; 99153; 99285; A9585; C1714; C1725; C1751; C1760; C1769; C1876; C1887; C2623; J0692; J1335; J1650; J2185; J2270; J2405; J2543; J2550; J3370; J3371; Q9967

== ENCOUNTER → 2023-01-13 20:52 | Outpatient (BNV) | payer MEDICARE, MEDICAID, SELFPAY | PROVIDERS: Admitting Provider Physician Assistant; Emergency Provider Emergency Medicine Emergency Medical Services; PCP Internal Medicine; Visit Provider Internal Medicine | DX: N18.30 Chronic kidney disease, stage 3 unspecified (principal); E11.621 Type 2 diabetes mellitus with foot ulcer; L97.509 Non-pressure chronic ulcer of other part of unspecified foot with unspecified severity | CPT/HCPCS: 99222 ==

== ENCOUNTER → 2023-01-13 20:52 | Outpatient (BNV) | payer MEDICARE, MEDICAID, SELFPAY | PROVIDERS: Admitting Provider Physician Assistant; Emergency Provider Emergency Medicine; PCP Internal Medicine; Visit Provider Nurse Practitioner Acute Care | DX: E11.621 Type 2 diabetes mellitus with foot ulcer (principal); L97.529 Non-pressure chronic ulcer of other part of left foot with unspecified severity | CPT/HCPCS: 99223; 99232; 99239; 99499; G0180 ==

== ENCOUNTER → 2023-01-13 20:52 | Outpatient (BNV) | payer MEDICARE, MEDICAID, SELFPAY | PROVIDERS: Admitting Provider Physician Assistant; Emergency Provider Emergency Medicine Emergency Medical Services; PCP Internal Medicine; Visit Provider Surgery | DX: E11.621 Type 2 diabetes mellitus with foot ulcer (principal); L97.509 Non-pressure chronic ulcer of other part of unspecified foot with unspecified severity | CPT/HCPCS: 99222 ==

== ENCOUNTER → 2023-01-13 20:52 | Outpatient (BNV) | payer MEDICARE, MEDICAID, SELFPAY | PROVIDERS: Admitting Provider Physician Assistant; Emergency Provider Emergency Medicine; PCP Internal Medicine; Visit Provider Registered Nurse | DX: F43.20 Adjustment disorder, unspecified (principal); F33.1 Major depressive disorder, recurrent, moderate | CPT/HCPCS: 99222 ==

== ENCOUNTER → 2023-01-13 20:52 | Outpatient (BNV) | payer MEDICARE, MEDICAID, SELFPAY | PROVIDERS: Admitting Provider Physician Assistant; Emergency Provider Emergency Medicine; PCP Internal Medicine; Visit Provider Surgery Vascular Surgery | DX: I70.245 Atherosclerosis of native arteries of left leg with ulceration of other part of foot (principal); E11.621 Type 2 diabetes mellitus with foot ulcer; L97.529 Non-pressure chronic ulcer of other part of left foot with unspecified severity | CPT/HCPCS: 37221; 37227; 75625; 75710; 76937; 99152; 99222; 99232 ==

== ENCOUNTER 2023-01-24 16:04 | Observation (INO) | payer MEDICARE, MEDICAID, SELFPAY ==
--- NOTE | ~2023-01-24 | XR_ITS ---
EXAMINATION: XR CHEST CLINICAL INFORMATION: Weakness COMPARISON: Previous chest CT December 2021 and chest x-ray January 2019 TECHNIQUE: 2 views of the chest were obtained. FINDINGS: The cardiac and mediastinal contours are normal. The lungs are clear. No pleural effusion or pneumothorax. Right upper extremity PICC line with tip projecting over the SVC. Mild degenerative changes of the spine. XR/XR chest 2V IMPRESSION: No evidence for acute disease in the chest.
[2023-01-24 16:12] VITALS: BP 138/76; BP 155/50; PULSE 73; PULSE 85; RESP 16; TEMP 36.9; O2SAT 93; O2SAT 96; BMI 22.5
--- NOTE | 2023-01-24 16:13 | ED.GENADULT ---
HPI - General Adult General Chief complaint: Weakness Stated complaint: Weakness coming from home Time Seen by Provider: 01/24/23 16:07 Source: patient and EMS Mode of arrival: EMS Limitations: no limitations History of Present Illness HPI narrative: Patient is a 77 year old assigned female at with a history of DM, CAD, CKD, HTN, and MDD presenting to the emergency department today with increased weakness. Patient states that she was just discharged home after being in this hospital last week and ever since she has been getting increasingly more weak. Patient states that she lives alone. Patient states that she is unable to walk because her legs will give out on her. Patient denies any dizziness, lightheadedness, abdominal pain, nausea, vomiting, fever, chills, blurry vision, double vision, loss of vision, chest pain, difficulty breathing, shortness of breath, back pain, night sweats, pain with urination, increased urinary frequency, increased urinary urgency, blood in her urine or stool, syncope or a near syncopal episode, recent trauma or falls, bowel incontinence, bladder incontinence, bowel retention, bladder retention, or any other complaints at this time. Patient states that she has a PICC line in place in her right arm for continued IV antibiotics for her necrotic left great toe. Onset (ago): day(s) Severity: mild Severity scale (1-10): 4 Relieving factors: none Exacerbating factors: none Associated symptoms: weakness Treatments prior to arrival: none Related Data Home Medications Medication Instructions Recorded Confirmed amlodipine 10 mg tablet 10 mg PO DAILY 05/23/20 01/13/23 atorvastatin 40 mg tablet 40 mg PO BEDTIME 05/23/20 01/13/23 cholecalciferol (vitamin D3) 25 25 mcg PO DAILY 05/23/20 01/13/23 mcg (1,000 unit) capsule lisinopril 40 mg tablet 40 mg PO DAILY 05/23/20 01/13/23 metoprolol tartrate 100 mg tablet 200 mg PO BID 05/23/20 01/13/23 nateglinide 60 mg tablet 60 mg PO TIDAC 05/23/20 01/13/23 omeprazole 40 mg capsule,delayed 40 mg PO DAILY@0630 05/23/20 01/13/23 release sitagliptin phosphate 50 mg tablet 50 mg PO DAILY 05/23/20 01/13/23 (Januvia) budesonide-formoterol HFA 160 1 puff PO BID PRN Shortness Of 12/27/21 01/13/23 mcg-4.5 mcg/actuation aerosol Breath Or Wheezing inhaler (Symbicort) nortriptyline 25 mg capsule 1 cap PO BEDTIME PRN Back Pain / 12/27/21 01/13/23 foot pain aspirin 81 mg tablet,delayed 81 mg PO DAILY 01/13/23 01/13/23 release dapagliflozin propanediol 5 mg 5 mg PO DAILY 01/13/23 01/13/23 tablet (Farxiga) Previous Rx's Medication Instructions Recorded ertapenem 1 gram solution for 1 g IV DAILY 6 weeks #10 ea 01/19/23 injection mirtazapine 7.5 mg tablet 7.5 mg PO BEDTIME #14 tabs 01/19/23 Allergies Allergy/AdvReac Type Severity Reaction Status Date / Time silver Allergy Unknown SKIN TEARS Verified 02/27/22 11:37 [From [employer] [facility]] TAPE,PAPER Allergy Unknown UNKNOWN Uncoded 02/27/22 11:37 Review of Systems Constitutional: Constitutional: Reports no additional constitutional complaints, Denies chills, Denies fever(s), Denies night sweats and Reports weakness Eyes: Eyes: Reports no additional eye complaints, Denies blurry vision, Denies change in vision, Denies diplopia, Denies eye discharge, Denies loss of vision and Denies eye pain ENT: Denies dizziness Cardiovascular: Cardiovascular: Reports no additional cardiovascular complaints, Denies chest pain, Denies lightheadedness, Denies Loss of Consciousness and Denies dyspnea Respiratory: Respiratory: Reports no additional respiratory complaints and Denies dyspnea Gastrointestinal: Gastrointestinal: Reports no additional gastrointestinal complaints, Denies abdominal pain, Denies melena, Denies hematochezia, Denies change in bowel habits and Denies change in stool character Genitourinary: Genitourinary: Denies hematuria, Denies urinary frequency, Denies dysuria, Denies urinary incontinence, Denies urinary hesitancy and Denies urinary urgency Musculoskeletal: Musculoskeletal: Reports no additional musculoskeletal complaints, Denies numbness and Denies tingling Integumentary/Breasts: Comments: necrotic left great toe Neurologic: Denies dizziness, Denies loss of vision, Denies numbness, Denies tingling and Reports weakness Psychiatric: Psychiatric: Reports no additional psychiatric complaints Endocrine: Endocrine: Reports no additional endocrine complaints Hematologic/Lymphatic: Hematologic/Lymphatic: Reports no additional hematologic/lymphatic complaints Allergic/Immunologic: Allergic/Immunologic: Reports no additional allergic/immunologic complaints PMFSH Past Medical History Attestation statement: The following information was validated with the patient. Source: old records reviewed and nursing notes reviewed Medical History CAD (coronary artery disease) Carotid artery occlusion CKD (chronic kidney disease) stage 3, GFR 30-59 ml/min Diabetes Diabetic ketoacidosis GERD (gastroesophageal reflux disease) GERD (gastroesophageal reflux disease) Hiatal hernia HTN (hypertension) Surgical History History of esophagogastroduodenoscopy (EGD) Family History Family History Father No problems noted. Mother No problems noted. Social History Social History Household Members: None Housing: Apartment Do you presently have visiting nurse or other home services: No Alcohol intake: never Patient Tobacco Use Status: Never used Tobacco Tobacco use type: Cigarette Cigarette Packs Per Day: 0.5 Cigarettes Per Day: 10.0 Smoked in Last 30 Days: Yes Use of substances other than those prescribed or required for medical reasons: No Substance Use Type: Marijuana Advance Directives: Yes Advance Directives on File: Yes Advance Directives Date on File: 01/14/23 service: No Current occupational status: retired Physical Exam ED Vital Signs: Vital Signs - 24 hr 01/24/23 16:12 01/24/23 18:20 01/24/23 20:26 Temperature 98.4 F 97.9 F Pulse Rate 73 75 78 Respiratory Rate 16 13 19 Blood Pressure 155/50 H 131/75 157/74 H Pulse Oximetry 93 96 95 Oxygen Delivery Method Room Air Room Air Room Air BMI result Body Mass Index 22.5 Const General: cooperative, no acute distress, alert and awake Nutritional Appearance: well nourished Orientation/consciousness: patient oriented x3 Limitations: no limitations HENMT Head: Yes normal to inspection and Yes atraumatic Ears: hearing grossly normal bilaterally and external ears normal General nose exam: Normal external nose present, no nasal discharge noted and no epistaxis Face and sinus: Yes normal facial exam, No abrasion and No laceration Mouth: Normal oral and palatal mucosa present, no drooling and no muffled voice Eyes General: appearance normal, both eyes and all related structures Periorbital: periorbital findings normal Eyelids: Yes eyelids normal Conjunctivae: conjunctivae normal Pupils: Equal, round and reactive pupils present EOM: EOMs intact bilaterally Neck Neck: Yes normal visual inspection, Yes full ROM and Yes no lymphadenopathy Chest Chest palpation & inspection: normal inspection of the chest Resp Effort & Inspection: normal respiratory effort and able to speak in complete sentences Auscultation: clear to auscultation bilaterally Cardio Rate: regular rate Rhythm: regular rhythm GI Inspection: Yes normal to inspection Neuro General: patient oriented x3 and moves all extremities Cranial nerves: Yes Equal, round and reactive pupils present Cognition (Neuro): normal cognition Motor exam (neuro): 5/5 motor strength present throughout Sensory Exam: Normal double simultaneous stimulation for sensation Coordination: [id number] test normal Extrem Other: left great toe has necrotic tissue on the plantar aspect. PICC line in place in the right upper extremity. Bruising present to the left forearm. General: Yes full ROM and Yes capillary refill normal Psych Appearance: grossly normal Mental Status: mental status grossly normal Affect: normal affect Attitude: cooperative Thought process: Normal thought process present Thought content: Normal thought content present Insight: Good insight present (Psych) Medications Administered Generic Name Dose Route Start Last Admin Trade Name Freq PRN Reason Stop Dose Admin Enoxaparin Sodium 40 mg 01/24/23 22:00 01/24/23 21:15 Enoxaparin Sodium 40 Mg/0.4 Ml Syringe SUBCUT 40 mg Q24H EMMANUEL Administration Magnesium Sulfate 2 gm in 50 mls @ 25 mls/hr 01/24/23 20:36 01/24/23 22:04 Magnesium Sulfate/H2o IV 01/24/23 22:35 25 mls/hr ONCE ONE Administration Insulin Human Lispro 0 unit 01/24/23 21:00 01/24/23 21:15 Insulin Lispro 100 Unit/Ml 3 Ml Vial SUBCUT 2 unit QIDACHS EMMANUEL Administration Protocol Discontinued Medications Generic Name Dose Route Start Last Admin Trade Name Freq PRN Reason Stop Dose Admin Sodium Chloride 1,000 mls @ 999 mls/hr 01/24/23 16:15 01/24/23 17:00 Ns IV 01/24/23 17:15 0 mls/hr .Q1H1M EMMANUEL Infusion Potassium Chloride 10 meq in 100 mls @ 100 mls/hr 01/24/23 17:00 01/24/23 22:04 Potassium Chloride/H20 IV 01/24/23 20:59 Infused Q1H EMMANUEL Infusion Potassium Chloride 40 meq 01/24/23 16:54 01/24/23 17:18 Potassium Chloride Packet 20 Meq Packet PO 01/24/23 16:55 40 meq ONCE ONE Administration Medical Decision Making Medical Decision Making MDM Narrative: Patient is a 77 year old assigned female at with a history of HTN, DM, CAD, CKD, PAD, MDD presenting to the emergency department today with increased weakness. Patient's physical exam was as noted in the physical exam portion of the chart. Patient's blood work showed a decreased potassium of 2.7, magnesium of 1.5, initial troponin of 38 and a repeat troponin of 35.5. The rest of the patient's labs were grossly unremarkable. Patient's urine showed no acute process. Patient's EKG was unremarkable. Patient's chest x-ray showed no acute process. Patient was given IV potassium. Patient's clinical presention is not consistent with sepsis (@2000). I spoke to the hospitalist who agreed to admission. I explained my physical exam findings as well as all test results to the patient. I answered all questions asked by the patient. Patient verbalized agreement and understanding with this treatment plan and admission. Differential Diagnosis Differential Diagnoses: The differential diagnosis associated with the presentation includes Hypokalemia Hypomagnesemia Weakness NSTEMI STEMI Admission/Observation Consideration of admission/observation: Escalation of care including admission/observation considered Patient to be admitted. Consult Healthcare Provider Management of the patient was discussed with: Hospitalist (agreed to admission.) Lab Data [facility] Lab Attestation statement: I reviewed the patient's lab results. My interpretation of these lab results are in the MDM portion of this chart. 01/24/23 16:31 01/24/23 16:31 Labs: Lab Results 01/24/23 01/24/23 01/24/23 Range/Units 16:31 16:31 16:31 WBC 9.6 (4.8-10.8) X10*3/uL RBC 3.31 L (4.20-5.50) X10*6/uL Hgb 10.0 L (12.0-16.0) g/dl Hct 29.7 L (37.0-47.0) % MCV 89.7 (80.0-98.0) fL MCH 30.2 (27.0-33.0) pg MCHC 33.7 (31.0-35.0) g/dl RDW 17.1 H (11.0-16.0) % Plt Count 294 (160-400) X10*3/uL MPV 10.3 (9.4-12.3) fL Immature Gran % (Auto) 0.5 H (0.0-0.4) % Neut % (Auto) 71.6 (45-73) % Lymph % (Auto) 14.3 L (20-40) % Nash % (Auto) 10.8 (2-11) % Eos % (Auto) 2.3 (0-4) % Baso % (Auto) 0.5 (0-2) % Lymph # (Auto) 1.4 (1.2-4.9) X10*3/uL Nash # (Auto) 1.0 (0.1-1.2) X10*3/uL Eos # (Auto) 0.2 (0.0-0.4) X10*3/uL Baso # (Auto) 0.1 (0.0-0.2) X10*3/uL Abs Immat Gran (auto) 0.05 H (0.00-0.03) X10*3/uL Absolute Neuts (auto) 6.9 (2.0-8.3) x10*3/uL Absolute Nucleated RBC 0.000 (0.0-0.012) X10*3/uL Nucleated RBC % (auto) 0.0 (0.0-0.2) /100WBC Sodium 142 (135-145) mmol/L Potassium 2.7 L D (3.3-5.1) mmol/L Chloride 106 (96-108) mmol/L Carbon Dioxide 25 (22-29) mmol/L Anion Gap 14 (12-20) BUN 10 (9-16) mg/dL Creatinine 1.06 (0.5-1.4) mg/dL Estim Creat Clear Calc 34.6 Estimated GFR 51 Random Glucose 144 H (60-115) mg/dL Calcium 8.7 (8.4-10.2) mg/dL Magnesium 1.5 L (1.6-2.6) mg/dL Total Bilirubin 0.3 (0.0-1.0) mg/dL AST 21 (5-31) U/L ALT 12 (0-31) U/L Alkaline Phosphatase 120 H (39-117) U/L Troponin I High Sens 38.0 H (<3.5-17.0) ng/L Total Protein 6.1 L (6.5-8.0) g/dL Albumin 2.9 L (3.5-5.0) g/dL Urine Color Urine Appearance Urine pH (5.0-9.0) Ur Specific [place] (1.005-1.025) Urine Protein (Neg-Trace) mg/dL Urine Glucose (UA) (Negative) mg/dL Urine Ketones (Negative) mg/dL Urine Blood (Negative) Urine Nitrite (Negative) Ur Leukocyte Esterase (Negative) Urine RBC (0-2) /HPF Urine WBC (0-5) /HPF Ur Squamous Epith Cells (0-2) /HPF Urine Bacteria (None Seen) Hyaline Casts (0-2) /LPF COVID-19 (INGE) (Negative) COVID-19 Clin Com 01/24/23 01/24/23 01/24/23 Range/Units 16:31 18:33 19:04 WBC (4.8-10.8) X10*3/uL RBC (4.20-5.50) X10*6/uL Hgb (12.0-16.0) g/dl Hct (37.0-47.0) % MCV (80.0-98.0) fL MCH (27.0-33.0) pg MCHC (31.0-35.0) g/dl RDW (11.0-16.0) % Plt Count (160-400) X10*3/uL MPV (9.4-12.3) fL Immature Gran % (Auto) (0.0-0.4) % Neut % (Auto) (45-73) % Lymph % (Auto) (20-40) % Nash % (Auto) (2-11) % Eos % (Auto) (0-4) % Baso % (Auto) (0-2) % Lymph # (Auto) (1.2-4.9) X10*3/uL Nash # (Auto) (0.1-1.2) X10*3/uL Eos # (Auto) (0.0-0.4) X10*3/uL Baso # (Auto) (0.0-0.2) X10*3/uL Abs Immat Gran (auto) (0.00-0.03) X10*3/uL Absolute Neuts (auto) (2.0-8.3) x10*3/uL Absolute Nucleated RBC (0.0-0.012) X10*3/uL Nucleated RBC % (auto) (0.0-0.2) /100WBC Sodium (135-145) mmol/L Potassium (3.3-5.1) mmol/L Chloride (96-108) mmol/L Carbon Dioxide (22-29) mmol/L Anion Gap (12-20) BUN (9-16) mg/dL Creatinine (0.5-1.4) mg/dL Estim Creat Clear Calc Estimated GFR Random Glucose (60-115) mg/dL Calcium (8.4-10.2) mg/dL Magnesium (1.6-2.6) mg/dL Total Bilirubin (0.0-1.0) mg/dL AST (5-31) U/L ALT (0-31) U/L Alkaline Phosphatase (39-117) U/L Troponin I High Sens 35.5 H (<3.5-17.0) ng/L Total Protein (6.5-8.0) g/dL Albumin (3.5-5.0) g/dL Urine Color Yellow Urine Appearance Clear Urine pH 6.0 (5.0-9.0) Ur Specific [place] 1.010 (1.005-1.025) Urine Protein 100 (2+) H (Neg-Trace) mg/dL Urine Glucose (UA) Negative (Negative) mg/dL Urine Ketones Negative (Negative) mg/dL Urine Blood Negative (Negative) Urine Nitrite Negative (Negative) Ur Leukocyte Esterase Negative (Negative) Urine RBC 3-5 H (0-2) /HPF Urine WBC 0-5 (0-5) /HPF Ur Squamous Epith Cells 6-10 (0-2) /HPF Urine Bacteria None Seen (None Seen) Hyaline Casts 0-2 (0-2) /LPF COVID-19 (INGE) Negative (Negative) COVID-19 Clin Com See Note Independent Interpretation I performed an independent interpretation of an: EKG and Plain X-Ray Interpretation: My interpretation is in agreement with the radiologist's impression of this imaging study. EXAMINATION: XR CHEST CLINICAL INFORMATION: Weakness COMPARISON: Previous chest CT December 2021 and chest x-ray January 2019 TECHNIQUE: 2 views of the chest were obtained. FINDINGS: The cardiac and mediastinal contours are normal. The lungs are clear. No pleural effusion or pneumothorax. Right upper extremity PICC line with tip projecting over the SVC. Mild degenerative changes of the spine. XR/XR chest 2V IMPRESSION: No evidence for acute disease in the chest. Dictated By: Leslye Negrete MD Signed By: Electronically signed by Leslye Negrete MD 01/24/23 [id number] Vent. Rate: 080 BPM ? ? Atrial Rate: 080 BPM P-R Int: 174 ms? QRS Dur: 160 ms QT Int: 448 ms ? ? ? P-R-T Axes: 067 -25 083 degrees QTc Int: 516 ms ? Sinus rhythm with marked sinus arrhythmia Left bundle branch block Abnormal ECG When compared with ECG of 27-FEB-2022 11:12, T wave inversion no longer evident in Inferior leads DD/ [id number] Radiology Impression Discussion of test interpretation with radiology: I have reviewed the radiologist's reading. Independent Historian Clinical information obtained from an independent historian. History obtained from or confirmed by: EMS (EMS provided additional history and confirmed the history provided by the patient.) External Record Review External record reviewed: Other (reviewed previous ED visit note.) Chronic Conditions Patient?s care impacted by: Diabetes and Hypertension Critical Care Time Critical Care Time Critical Care Time: Yes Total Critical Care Time: 30 Attestation: I spent 30 minutes of Critical Care Time with this patient. This does not include time spent on separately reported billable procedures. Discharge Plan Discharge Clinical Impression: Hypokalemia, Hypomagnesemia, Weakness Patient Disposition: Admitted As Inpatient
--- NOTE | 2023-01-24 16:14 | ECG_ITS ---
Test Reason : WEAKNESS Blood Pressure : / mmHG Vent. Rate : 080 BPM Atrial Rate : 080 BPM P-R Int : 174 ms QRS Dur : 160 ms QT Int : 448 ms P-R-T Axes : 067 -25 083 degrees QTc Int : 516 ms Sinus rhythm with marked sinus arrhythmia Left bundle branch block Abnormal ECG When compared with ECG of 27-FEB-2022 11:12, T wave inversion no longer evident in Inferior leads Referred By: Rosemarie Burger Electronically Signed By:Jose Bauman
[2023-01-24] MEDS: 0.9 % Sodium Chloride 1,000 ML 999 ML IV (16:33)
[2023-01-24 16:34] LABS: MANUAL DIFF FLAG NO
[2023-01-24 16:35] LABS: Basophils Absolute Auto 0.1 X10*3/uL (0.0-0.2); Basophils Percent Auto 0.5 % (0-2); Eosinophils Absolute Auto 0.2 X10*3/uL (0.0-0.4); Eosinophils Percent Auto 2.3 % (0-4); Hematocrit 29.7 % (37.0-47.0); Imm Gran Abs Auto 0.05 X10*3/uL (0.00-0.03); Imm Gran Pct Auto 0.5 % (0.0-0.4); Lymphocytes Absolute Auto 1.4 X10*3/uL (1.2-4.9); Lymphocytes Percent Auto 14.3 % (20-40); Mean Corpuscular HGB Conc 33.7 g/dl (31.0-35.0); Mean Corpuscular Hemoglobin 30.2 pg (27.0-33.0); Mean Corpuscular Volume 89.7 fL (80.0-98.0); Mean Platelet Volume 10.3 fL (9.4-12.3); Monocytes Percent Auto 10.8 % (2-11); Neutrophils Absolute Auto 6.9 x10*3/uL (2.0-8.3); Neutrophils Percent Auto 71.6 % (45-73); Platelet Count 294 X10*3/uL (160-400); Red Blood Count 3.31 X10*6/uL (4.20-5.50); Red Cell Distribution Width 17.1 % (11.0-16.0); White Blood Count 9.6 X10*3/uL (4.8-10.8)
[2023-01-24 16:49] LABS: Alanine Aminotransferase 12 U/L (0-31); Albumin Level 2.9 g/dL (3.5-5.0); Alkaline Phosphatase 120 U/L (39-117); Anion Gap 14 (12-20); Aspartate Amino Transferase 21 U/L (5-31); Bilirubin Total 0.3 mg/dL (0.0-1.0); Blood Urea Nitrogen 10 mg/dL (9-16); Calcium 8.7 mg/dL (8.4-10.2); Carbon Dioxide 25 mmol/L (22-29); Chloride 106 mmol/L (96-108); Creatinine Clr Calc Pharmacy 34.6; Estimated Glomerular Filt Rate 51; Glucose Random 144 mg/dL (60-115); Magnesium 1.5 mg/dL (1.6-2.6); Potassium 2.7 mmol/L (3.3-5.1); Sodium 142 mmol/L (135-145); Total Protein 6.1 g/dL (6.5-8.0)
[2023-01-24 17:03] LABS: COVID-19 Test Negative (Negative); IDNOW Serial# 55D5AD1C
[2023-01-24] MEDS: Potassium Chloride/H20 10 MEQ/100 ML PIGGYBACK 100 MEQ IV ×4 (17:18→21:03)
[2023-01-24] MEDS: Potassium Chloride Packet 20 MEQ PACKET 40 MEQ PO (17:18)
[2023-01-24 18:20] VITALS: BP 131/75; PULSE 75; RESP 13; O2SAT 96
[2023-01-24 18:58] LABS: Troponin-I High Sensitivity 35.5 ng/L (<3.5-17.0)
[2023-01-24 19:13] LABS: Appearance Urine Clear; Color Urine Yellow; Glucose Urine UA Negative (Negative); Leukocyte Esterase Urine Negative (Negative); Nitrite Urine Negative (Negative); UMIC TRIGGER UACC YES; Urine Blood Negative (Negative); Urine Ketones Negative (Negative); Urine Protein 100 (2+) mg/dL (Neg-Trace)
[2023-01-24 19:18] LABS: Bacteria Urine None Seen (None Seen); Hyaline Casts Urine 0-2 /LPF (0-2); WBC Urine 0-5 /HPF (0-5)
[2023-01-24 20:26] VITALS: BP 157/74; PULSE 78; RESP 19; TEMP 36.6; O2SAT 95
--- NOTE | 2023-01-24 20:30 | PM.IMHP ---
History of Present Illness Date of Service: 01/24/23 Chief Complaint: Diarrhea, weakness This is a 77-year-old female with pertinent history of CAD, hcw-ehfgbeh-ujgprzgmz diabetes mellitus, essential hypertension, tobacco use disorder, CKD stage 3, gastroesophageal reflux disease who presents to the emergency department for evaluation generalized weakness and loose stools. Patient was recently admitted and discharged on 01/19 for treatment of acute infected unstageable left great toe ulcer with acute osteomyelitis. Patient states that over the last 2 days she had multiple episodes of nausea and nonbloody diarrhea. She feels weak and unable to get up and walk. No focal weakness. Patient denies fever, chills, chest discomfort, palpitations, shortness of breath, abdominal pain, changes in urinary habits The emergency department, patient was found to have low potassium and magnesium Review of Systems Constitutional: Constitutional: Reports fatigue, Reports lethargy and Reports malaise Cardiovascular: Cardiovascular: Reports no additional cardiovascular complaints Respiratory: Respiratory: Reports no additional respiratory complaints Gastrointestinal: Gastrointestinal: Reports loose stools and Reports nausea Genitourinary: Genitourinary: Reports no additional female genitourinary complaints Endocrine: Endocrine: Reports fatigue [facility] Medical History CAD (coronary artery disease) Carotid artery occlusion CKD (chronic kidney disease) stage 3, GFR 30-59 ml/min Diabetes Diabetic ketoacidosis GERD (gastroesophageal reflux disease) GERD (gastroesophageal reflux disease) Hiatal hernia HTN (hypertension) Family History Father No problems noted. Mother No problems noted. Surgical History History of esophagogastroduodenoscopy (EGD) Social History Household Members: None Housing: Apartment Do you presently have visiting nurse or other home services: No Alcohol intake: never Patient Tobacco Use Status: Never used Tobacco Tobacco use type: Cigarette Cigarette Packs Per Day: 0.5 Cigarettes Per Day: 10.0 Smoked in Last 30 Days: Yes Use of substances other than those prescribed or required for medical reasons: No Substance Use Type: Marijuana Advance Directives: Yes Advance Directives on File: Yes Advance Directives Date on File: 01/14/23 service: No Current occupational status: retired Meds Allergies Allergy/AdvReac Type Severity Reaction Status Date / Time silver Allergy Unknown SKIN TEARS Verified 02/27/22 11:37 [From TEGADERM AG MESH] TAPE,PAPER Allergy Unknown UNKNOWN Uncoded 02/27/22 11:37 Active Medications: Current Medications Potassium Chloride (Potassium Chloride/H20) 10 meq in 100 mls @ 100 mls/hr IV Q1H EMMANUEL Stop: 01/24/23 20:59 Last Admin: 01/24/23 19:39 Dose: 100 mls/hr Pharmacy Consult (Consult Rx Perform Med Rec) 1 each MISCELLANE ONCE PRN PRN Reason: Consult order Home Medications Medication Instructions Recorded Confirmed Last Taken Type amlodipine 10 mg tablet 10 mg PO DAILY 05/23/20 01/13/23 01/13/23 09:00 History atorvastatin 40 mg tablet 40 mg PO BEDTIME 05/23/20 01/13/23 01/12/23 History cholecalciferol (vitamin D3) 25 25 mcg PO DAILY 05/23/20 01/13/23 01/13/23 09:00 History mcg (1,000 unit) capsule lisinopril 40 mg tablet 40 mg PO DAILY 05/23/20 01/13/23 01/13/23 09:00 History metoprolol tartrate 100 mg tablet 200 mg PO BID 05/23/20 01/13/23 01/13/23 09:00 History nateglinide 60 mg tablet 60 mg PO TIDAC 05/23/20 01/13/23 01/13/23 09:00 History omeprazole 40 mg capsule,delayed 40 mg PO DAILY@0630 05/23/20 01/13/23 01/13/23 06:30 History release sitagliptin phosphate 50 mg tablet 50 mg PO DAILY 05/23/20 01/13/23 01/13/23 09:00 History (Haiuvia) budesonide-formoterol HFA 160 1 puff PO BID PRN Shortness Of 12/27/21 01/13/23 12/27/21 History mcg-4.5 mcg/actuation aerosol Breath Or Wheezing inhaler (Symbicort) nortriptyline 25 mg capsule 1 cap PO BEDTIME PRN Back Pain / 12/27/21 01/13/23 12/26/21 History foot pain aspirin 81 mg tablet,delayed 81 mg PO DAILY 01/13/23 01/13/23 01/13/23 09:00 History release dapagliflozin propanediol 5 mg 5 mg PO DAILY 01/13/23 01/13/23 01/13/23 09:00 History tablet (Farxiga) Physical Exam Vital Signs and Narrative: Vital Signs: Last Vital Signs Temp 97.9 F 01/24/23 20:26 Pulse 78 01/24/23 20:26 Resp 19 01/24/23 20:26 BP 157/74 H 01/24/23 20:26 Pulse Ox 95 01/24/23 20:26 O2 Del Method Room Air 01/24/23 20:26 BMI result Body Mass Index 22.5 Elderly female lying in bed in no distress Neck supple, no JVD Regular rate and rhythm, S1-S2 heard Regular breath sounds bilaterally, no wheezing or crackles appreciated Abdomen soft nontender, no guarding, no rigidity Patient is awake, alert and oriented to self, place, time and person ; no focal motor deficit Extremity: Left great toe with eschar Psych: Normal mood No pedal edema Results Labs 01/24/23 16:31 01/24/23 16:31 Labs: Laboratory Results - last 24 hr 01/24/23 01/24/23 01/24/23 16:31 16:31 16:31 MCV 89.7 MCH 30.2 MCHC 33.7 RDW 17.1 H Plt Count 294 MPV 10.3 Immature Gran % (Auto) 0.5 H Neut % (Auto) 71.6 Lymph % (Auto) 14.3 L [place] % (Auto) 10.8 Eos % (Auto) 2.3 Baso % (Auto) 0.5 Lymph # (Auto) 1.4 [place] # (Auto) 1.0 Eos # (Auto) 0.2 Baso # (Auto) 0.1 Abs Immat Gran (auto) 0.05 H Absolute Neuts (auto) 6.9 Absolute Nucleated RBC 0.000 Nucleated RBC % (auto) 0.0 Anion Gap 14 Estim Creat Clear Calc 34.6 Estimated GFR 51 Random Glucose 144 H Calcium 8.7 Magnesium 1.5 L Total Bilirubin 0.3 AST 21 ALT 12 Alkaline Phosphatase 120 H Troponin I High Sens 38.0 H Total Protein 6.1 L Albumin 2.9 L Urine Color Urine Appearance Urine pH Ur Specific [place] Urine Protein Urine Glucose (UA) Urine Ketones Urine Blood Urine Nitrite Ur Leukocyte Esterase Urine RBC Urine WBC Ur Squamous Epith Cells Urine Bacteria Hyaline Casts COVID-19 (INGE) COVID-19 Clin Com 01/24/23 01/24/23 01/24/23 16:31 18:33 19:04 MCV MCH MCHC RDW Plt Count MPV Immature Gran % (Auto) Neut % (Auto) Lymph % (Auto) [place] % (Auto) Eos % (Auto) Baso % (Auto) Lymph # (Auto) [place] # (Auto) Eos # (Auto) Baso # (Auto) Abs Immat Gran (auto) Absolute Neuts (auto) Absolute Nucleated RBC Nucleated RBC % (auto) Anion Gap Estim Creat Clear Calc Estimated GFR Random Glucose Calcium Magnesium Total Bilirubin AST ALT Alkaline Phosphatase Troponin I High Sens 35.5 H Total Protein Albumin Urine Color Yellow Urine Appearance Clear Urine pH 6.0 Ur Specific [place] 1.010 Urine Protein 100 (2+) H Urine Glucose (UA) Negative Urine Ketones Negative Urine Blood Negative Urine Nitrite Negative Ur Leukocyte Esterase Negative Urine RBC 3-5 H Urine WBC 0-5 Ur Squamous Epith Cells 6-10 Urine Bacteria None Seen Hyaline Casts 0-2 COVID-19 (INGE) Negative COVID-19 Clin Com See Note Imaging Radiologist's Impressions: Impressions Chest X-Ray 01/24/23 16:24 IMPRESSION: No evidence for acute disease in the chest. Assessment and Plan (1) Hypokalemia: Status: Acute (2) Hypomagnesemia: Status: Acute (3) Generalized weakness: Status: Acute Plan This is a 77-year-old female with pertinent history of CAD, qkx-dmdudxj-yrpkmtryy diabetes mellitus, essential hypertension, tobacco use disorder, CKD stage 3, gastroesophageal reflux disease who presents to the emergency department for evaluation generalized weakness and loose stools. #. Hypokalemia and hypomagnesemia in the setting of GI losses. Repleting in the ER. Follow electrolytes #. Diarrhea, viral gastroenteritis v/s in the setting of antibiotic use. Symptomatic treatment for now. GI panel pending #. Generalized weakness likely due to electrolyte abnormalities. Monitor for improvement with correction of electrolyte abnormalities. Consulted physical therapy to evaluate and treat #. Bgv-khoycyh-qrphwkzvd diabetes mellitus. Initiating Accu-Cheks with sliding scale insulin #. Acute infected unstageable left great toe ulcer with acute osteomyelitis. On IV ertapenem 1 g daily for 6 weeks as per ID #. Peripheral vascular disease. On dual antiplatelet therapy and statin #. Essential hypertension. Continue home antihypertensives #. CAD. On antiplatelet agent, statin and beta-hilda #. Chronic kidney disease stage 3. At baseline. #. Tobacco use disorder. Counseled regarding cessation. #. COPD. No exacerbation during admission. Continue home inhaler #. Mood disorder. Continue home mood stabilizers #. Normocytic anemia DVT prophylaxis: Lovenox DNR/DNI Time Spent With Patient Time: Total time managing care of this patient today ____ minutes. Quality Stroke Does the patient have a stroke diagnosis?: No VTE Prior VTE?: No VTE Risk Level:: Medical - moderate - high VTE Device Contraindication: Treatment Not Indicated VTE Drug Contraindication: N/A - Med Ordered
[2023-01-24] MEDS: Insulin Lispro 100 UNIT/ML 3 ML VIAL SUBCUT (21:15)
[2023-01-24] MEDS: Enoxaparin Sodium 40 MG/0.4 ML SYRINGE SUBCUT (21:15)
[2023-01-24 21:18] LABS: Glucose, Whole Blood 186 mg/dL (60-115)
[2023-01-24] MEDS: Magnesium Sulfate/H2O 2 GM/50 ML PIGGYBACK IV (22:04)
--- NOTE | 2023-01-24 22:33 | PC.NURSE ---
Pt resting comfortably in bed, complaining of pain in her left big toe. Pt was able to stand and pivot to commode with 2 assist. Pt has a PICC line in the right arm with medications going through it. Medication administration has been delayed due to one line of access. Administered as documented in SEP. Pt waiting bed assignment at this time.
[2023-01-24] MEDS: 0.9 % Sodium Chloride Flush 3 ML SYRINGE IVFLUSH (23:45)
--- NOTE | 2023-01-25 01:08 | PC.NURSE ---
Pt able to stand and pivot with one assist to commode. Pt reports fatigue and SOB on exertion but recovered quickly. Pt is now resting in bed, A&Ox4, GCS 15.
--- NOTE | 2023-01-25 04:02 | PC.NURSE ---
Pt stand and turn with 2 assist to commode. Pt is very weak and unsteady on her feet, but is able to ambulate.
[2023-01-25 05:26] LABS: Basophils Absolute Auto 0.1 X10*3/uL (0.0-0.2); Basophils Percent Auto 0.8 % (0-2); Eosinophils Absolute Auto 0.3 X10*3/uL (0.0-0.4); Eosinophils Percent Auto 3.1 % (0-4); Hematocrit 29.5 % (37.0-47.0); Hemoglobin 9.8 g/dl (12.0-16.0); Imm Gran Abs Auto 0.03 X10*3/uL (0.00-0.03); Imm Gran Pct Auto 0.3 % (0.0-0.4); Lymphocytes Absolute Auto 1.9 X10*3/uL (1.2-4.9); Lymphocytes Percent Auto 19.9 % (20-40); MANUAL DIFF FLAG NO; Mean Corpuscular HGB Conc 33.2 g/dl (31.0-35.0); Mean Corpuscular Hemoglobin 30.2 pg (27.0-33.0); Mean Corpuscular Volume 90.8 fL (80.0-98.0); Mean Platelet Volume 10.5 fL (9.4-12.3); Monocytes Absolute Auto 1.1 X10*3/uL (0.1-1.2); Monocytes Percent Auto 11.6 % (2-11); Neutrophils Absolute Auto 6.1 x10*3/uL (2.0-8.3); Neutrophils Percent Auto 64.3 % (45-73); Platelet Count 304 X10*3/uL (160-400); Red Blood Count 3.25 X10*6/uL (4.20-5.50); Red Cell Distribution Width 17.4 % (11.0-16.0); White Blood Count 9.5 X10*3/uL (4.8-10.8)
[2023-01-25 05:41] LABS: Anion Gap 14 (12-20); Blood Urea Nitrogen 8 mg/dL (9-16); Calcium 8.6 mg/dL (8.4-10.2); Carbon Dioxide 23 mmol/L (22-29); Chloride 110 mmol/L (96-108); Creatinine Clr Calc Pharmacy 42.6; Estimated Glomerular Filt Rate > 60; Glucose Random 118 mg/dL (60-115); Potassium 3.6 mmol/L (3.3-5.1); Sodium 143 mmol/L (135-145)
[2023-01-25 05:42] LABS: Magnesium 2.2 mg/dL (1.6-2.6)
[2023-01-25 07:32] VITALS: BP 177/86; PULSE 85; RESP 15; O2SAT 95
[2023-01-25 07:42] LABS: Glucose, Whole Blood 124 mg/dL (60-115)
[2023-01-25 08:00] VITALS: BP 161/84; PULSE 83; RESP 20; TEMP 36.1; O2SAT 97
--- NOTE | 2023-01-25 09:00 | HO.PM.IMPN ---
Subjective Subjective Date of Service: 01/25/23 Review of Systems Follow up diarrhea and weakness weepy, sad about being back in the hospital Physical Exam Vital Signs: Vital Signs: Last Vital Signs Temp 97.0 F 01/25/23 08:00 Pulse 83 01/25/23 08:00 Resp 20 01/25/23 08:00 BP 161/84 H 01/25/23 08:00 Pulse Ox 97 01/25/23 08:00 O2 Del Method Room Air 01/25/23 08:00 BMI result Body Mass Index 22.5 Appearing in no acute distress lung sounds are clear to auscultation heart regular rate rhythm, clear S1, S2 positive bowel sounds, abdomen is soft, nontender neuro patient is alert x3, no focal deficits Objective Data Active Medications Acetaminophen (Acetaminophen 325 Mg Tablet) 650 mg PO Q6H PRN PRN Reason: Pain, Mild (Pain Scale 1-3) Dextrose (Dextrose 50 % 25 Gm/50 Ml Syringe) 25 gm IVPUSH Q15M PRN; Protocol PRN Reason: per Hypoglycemia Standing Ord. Enoxaparin Sodium (Enoxaparin Sodium 40 Mg/0.4 Ml Syringe) 40 mg SUBCUT Q24H [facility] Last Admin: 01/24/23 21:15 Dose: 40 mg Documented By: JESSICA Glucose (Glucose Gel 15 Gm Gel..Gram.) 15 gm PO Q15M PRN; Protocol PRN Reason: per Hypoglycemia Standing Ord. Meropenem 1 gm/ Sodium (Chloride) 100 mls @ 200 mls/hr IV Q12H [facility] Last Infusion: 01/25/23 00:13 Dose: 0 mls/hr Documented By: JESSICA Insulin Human Lispro (Insulin Lispro 100 Unit/Ml 3 Ml Vial) 0 unit SUBCUT QIDACHS [facility]; Protocol Last Admin: 01/25/23 07:48 Dose: Not Given Documented By: JUSTIN Non-Admin Reason: No Insulin Coverage Loperamide HCl (Loperamide Hcl 2 Mg Capsule) 2 mg PO Q4H PRN PRN Reason: Diarrhea Melatonin (Melatonin 3 Mg Tablet) 6 mg PO BEDTIME PRN PRN Reason: Insomnia Ondansetron HCl (Ondansetron Hcl 4 Mg/2 Ml Vial) 4 mg IVPUSH Q8H PRN PRN Reason: Nausea and Vomiting Pharmacy Consult (Consult Rx Perform Med Rec) 1 each MISCELLANE ONCE PRN PRN Reason: Consult order Sodium Chloride (0.9 % Sodium Chloride Flush 3 Ml Syringe) 3 ml IVFLUSH QSHIFT [facility] Last Admin: 01/24/23 23:45 Dose: 3 ml Documented By: JESSICA Labs 01/25/23 05:20 01/25/23 05:20 Labs: Laboratory Results - last 24 hr 01/24/23 01/24/23 01/24/23 16:31 16:31 16:31 MCV 89.7 MCH 30.2 MCHC 33.7 RDW 17.1 H Plt Count 294 MPV 10.3 Immature Gran % (Auto) 0.5 H Neut % (Auto) 71.6 Lymph % (Auto) 14.3 L [place] % (Auto) 10.8 Eos % (Auto) 2.3 Baso % (Auto) 0.5 Lymph # (Auto) 1.4 [place] # (Auto) 1.0 Eos # (Auto) 0.2 Baso # (Auto) 0.1 Abs Immat Gran (auto) 0.05 H Absolute Neuts (auto) 6.9 Absolute Nucleated RBC 0.000 Nucleated RBC % (auto) 0.0 Anion Gap 14 Estim Creat Clear Calc 34.6 Estimated GFR 51 POC Glucose Random Glucose 144 H Calcium 8.7 Magnesium 1.5 L Total Bilirubin 0.3 AST 21 ALT 12 Alkaline Phosphatase 120 H Troponin I High Sens 38.0 H Total Protein 6.1 L Albumin 2.9 L Urine Color Urine Appearance Urine pH Ur Specific [place] Urine Protein Urine Glucose (UA) Urine Ketones Urine Blood Urine Nitrite Ur Leukocyte Esterase Urine RBC Urine WBC Ur Squamous Epith Cells Urine Bacteria Hyaline Casts COVID-19 ([facility]) COVID-19 Clin Com 01/24/23 01/24/23 01/24/23 16:31 18:33 19:04 MCV MCH MCHC RDW Plt Count MPV Immature Gran % (Auto) Neut % (Auto) Lymph % (Auto) [place] % (Auto) Eos % (Auto) Baso % (Auto) Lymph # (Auto) [place] # (Auto) Eos # (Auto) Baso # (Auto) Abs Immat Gran (auto) Absolute Neuts (auto) Absolute Nucleated RBC Nucleated RBC % (auto) Anion Gap Estim Creat Clear Calc Estimated GFR POC Glucose Random Glucose Calcium Magnesium Total Bilirubin AST ALT Alkaline Phosphatase Troponin I High Sens 35.5 H Total Protein Albumin Urine Color Yellow Urine Appearance Clear Urine pH 6.0 Ur Specific [place] 1.010 Urine Protein 100 (2+) H Urine Glucose (UA) Negative Urine Ketones Negative Urine Blood Negative Urine Nitrite Negative Ur Leukocyte Esterase Negative Urine RBC 3-5 H Urine WBC 0-5 Ur Squamous Epith Cells 6-10 Urine Bacteria None Seen Hyaline Casts 0-2 COVID-19 ([facility]) Negative COVID-19 Clin Com See Note 01/24/23 01/25/23 01/25/23 21:06 05:20 05:20 MCV 90.8 MCH 30.2 MCHC 33.2 RDW 17.4 H Plt Count 304 MPV 10.5 Immature Gran % (Auto) 0.3 Neut % (Auto) 64.3 Lymph % (Auto) 19.9 L [place] % (Auto) 11.6 H Eos % (Auto) 3.1 Baso % (Auto) 0.8 Lymph # (Auto) 1.9 [place] # (Auto) 1.1 Eos # (Auto) 0.3 Baso # (Auto) 0.1 Abs Immat Gran (auto) 0.03 Absolute Neuts (auto) 6.1 Absolute Nucleated RBC 0.000 Nucleated RBC % (auto) 0.0 Anion Gap Estim Creat Clear Calc Estimated GFR POC Glucose 186 H Random Glucose Calcium Magnesium 2.2 Total Bilirubin AST ALT Alkaline Phosphatase Troponin I High Sens Total Protein Albumin Urine Color Urine Appearance Urine pH Ur Specific [place] Urine Protein Urine Glucose (UA) Urine Ketones Urine Blood Urine Nitrite Ur Leukocyte Esterase Urine RBC Urine WBC Ur Squamous Epith Cells Urine Bacteria Hyaline Casts COVID-19 (INGE) COVID-19 Clin Com 01/25/23 01/25/23 05:20 07:37 MCV MCH MCHC RDW Plt Count MPV Immature Gran % (Auto) Neut % (Auto) Lymph % (Auto) [place] % (Auto) Eos % (Auto) Baso % (Auto) Lymph # (Auto) [place] # (Auto) Eos # (Auto) Baso # (Auto) Abs Immat Gran (auto) Absolute Neuts (auto) Absolute Nucleated RBC Nucleated RBC % (auto) Anion Gap 14 Estim Creat Clear Calc 42.6 Estimated GFR > 60 POC Glucose 124 H Random Glucose 118 H Calcium 8.6 Magnesium Total Bilirubin AST ALT Alkaline Phosphatase Troponin I High Sens Total Protein Albumin Urine Color Urine Appearance Urine pH Ur Specific [place] Urine Protein Urine Glucose (UA) Urine Ketones Urine Blood Urine Nitrite Ur Leukocyte Esterase Urine RBC Urine WBC Ur Squamous Epith Cells Urine Bacteria Hyaline Casts COVID-19 ([facility]E) COVID-19 Clin Com Assessment and Plan (1) Weakness: Status: Acute Plan 77-year-old female with pertinent history of CAD, dqm-ndtjmau-siqjjzdvd diabetes mellitus, essential hypertension, tobacco use disorder, CKD stage 3, gastroesophageal reflux disease who presents to the emergency department for evaluation generalized weakness and loose stools. Hypokalemia and hypomagnesemia. Resolved in the setting of GI losses.? repleted Diarrhea, viral gastroenteritis v/s in the setting of antibiotic use.? Symptomatic treatment for now.? GI panel pending Generalized weakness likely due to electrolyte abnormalities.? Monitor for improvement with correction of electrolyte abnormalities.? Consulted physical therapy to evaluate and treat Tja-fmsavcb-ioljeakth diabetes mellitus.? ss, ada diet Acute infected unstageable left great toe ulcer with acute osteomyelitis.? On IV ertapenem 1 g daily for 6 weeks as per ID Peripheral vascular disease.? On dual antiplatelet therapy and statin Essential hypertension.? Continue home antihypertensives CAD.? On antiplatelet agent, statin and beta-hilda Chronic kidney disease stage 3.? At baseline. Tobacco use disorder.? Counseled regarding cessation. COPD.? No exacerbation during admission.? Continue home inhaler Mood disorder.? Continue home mood stabilizers Normocytic anemia DVT prophylaxis: Lovenox DNR/DNI Attending Dr. Muniz Time Spent With Patient Time: Total time managing care of this patient today ____ minutes. Quality Stroke Does the patient have a stroke diagnosis?: No VTE Prior VTE?: No VTE Risk Level:: Medical - moderate - high VTE Device Contraindication: Treatment Not Indicated VTE Drug Contraindication: N/A - Med Ordered
--- NOTE | 2023-01-25 09:13 | PHA.MEDREC ---
Pharmacy Consult ? Medication Reconciliation Pharmacy has completed the medication reconciliation. Med rec completed by Марина Miller, patient recently discharged.
--- NOTE | 2023-01-25 09:32 | MHC.CM.PN ---
TING 01/25. Pt on observation for weakness. Pt lives alone, uses a cane/walker, and had previous [facility], [facility], and [facility] services. D/C plan to return home with resumption of [facility], and [facility]. Pt states her family will transport. HCP on file and verified. PCP: Gene Nix vax: x 4.
[2023-01-25 09:59] VITALS: BMI 22.9
[2023-01-25] MEDS: 0.9 % Sodium Chloride Flush 3 ML SYRINGE IVFLUSH (10:22)
[2023-01-25 11:03] VITALS: BP 167/73; PULSE 80; RESP 20; TEMP 36.2; O2SAT 96
[2023-01-25 11:40] LABS: Glucose, Whole Blood 159 mg/dL (60-115)
[2023-01-25] MEDS: Insulin Lispro 100 UNIT/ML 3 ML VIAL SUBCUT (11:58)
[2023-01-25 15:21] VITALS: BP 163/75; PULSE 87; RESP 16; TEMP 36.1; O2SAT 95
[2023-01-25 15:39] LABS: Glucose, Whole Blood 137 mg/dL (60-115)
[2023-01-25 19:12] VITALS: BP 149/68; PULSE 93; RESP 18; TEMP 36.8; O2SAT 97
[2023-01-25 21:03] LABS: Glucose, Whole Blood 133 mg/dL (60-115)
[2023-01-25] MEDS: Enoxaparin Sodium 40 MG/0.4 ML SYRINGE SUBCUT (21:48)
[2023-01-26] VITALS (7 sets, daily range): BP systolic 115–152; BP diastolic 49–73; PULSE 77–122; RESP 17–20; TEMP 36.1–37; O2SAT 94–98
[2023-01-26] MEDS: Melatonin 3 MG TABLET 6 MG PO (00:10)
[2023-01-26] MEDS: 0.9 % Sodium Chloride Flush 3 ML SYRINGE IVFLUSH (00:12)
[2023-01-26 07:45] LABS: Glucose, Whole Blood 114 mg/dL (60-115)
--- NOTE | 2023-01-26 08:46 | HO.PM.IMPN ---
Subjective Subjective Date of Service: 01/26/23 Review of Systems Follow up diarrhea and weakness weepy, sad about being back in the hospital Physical Exam Vital Signs: Vital Signs: Last Vital Signs Temp 96.9 F 01/26/23 07:29 Pulse 89 01/26/23 07:29 Resp 20 01/26/23 07:29 BP 148/58 H 01/26/23 07:29 Pulse Ox 96 01/26/23 07:29 O2 Del Method Room Air 01/26/23 07:29 BMI result Body Mass Index 22.9 Appearing in no acute distress lung sounds are clear to auscultation heart regular rate rhythm, clear S1, S2 positive bowel sounds, abdomen is soft, nontender neuro patient is alert x3, no focal deficits Objective Data Active Medications Acetaminophen (Acetaminophen 325 Mg Tablet) 650 mg PO Q6H PRN PRN Reason: Pain, Mild (Pain Scale 1-3) Dextrose (Dextrose 50 % 25 Gm/50 Ml Syringe) 25 gm IVPUSH Q15M PRN; Protocol PRN Reason: per Hypoglycemia Standing Ord. Enoxaparin Sodium (Enoxaparin Sodium 40 Mg/0.4 Ml Syringe) 40 mg SUBCUT Q24H [facility] Last Admin: 01/25/23 21:48 Dose: 40 mg Documented By: KOKODEJuan Glucose (Glucose Gel 15 Gm Gel..Gram.) 15 gm PO Q15M PRN; Protocol PRN Reason: per Hypoglycemia Standing Ord. Meropenem 1 gm/ Sodium (Chloride) 100 mls @ 200 mls/hr IV Q12H [facility] Last Infusion: 01/25/23 23:38 Dose: 0 mls/hr Documented By: RICO Insulin Human Lispro (Insulin Lispro 100 Unit/Ml 3 Ml Vial) 0 unit SUBCUT QIDACHS [facility]; Protocol Last Admin: 01/26/23 08:12 Dose: Not Given Documented By: KEVIN Non-Admin Reason: See Note Loperamide HCl (Loperamide Hcl 2 Mg Capsule) 2 mg PO Q4H PRN PRN Reason: Diarrhea Melatonin (Melatonin 3 Mg Tablet) 6 mg PO BEDTIME PRN PRN Reason: Insomnia Last Admin: 01/26/23 00:10 Dose: 6 mg Documented By: ANTOIC Ondansetron HCl (Ondansetron Hcl 4 Mg/2 Ml Vial) 4 mg IVPUSH Q8H PRN PRN Reason: Nausea and Vomiting Pharmacy Consult (Consult Rx Perform Med Rec) 1 each MISCELLANE ONCE PRN PRN Reason: Consult order Sodium Chloride (0.9 % Sodium Chloride Flush 3 Ml Syringe) 3 ml IVFLUSH QSHIFT [facility] Last Admin: 01/26/23 06:58 Dose: Not Given Documented By: KEVIN Non-Admin Reason: See Note Labs 01/25/23 05:20 01/25/23 05:20 Labs: Laboratory Results - last 24 hr 01/25/23 01/25/23 01/25/23 11:02 15:26 20:59 POC Glucose 159 H 137 H 133 H 01/26/23 07:32 POC Glucose 114 Assessment and Plan (1) Weakness: Status: Acute Plan 77-year-old female with pertinent history of CAD, yom-ksaxjsr-ufrmycnhg diabetes mellitus, essential hypertension, tobacco use disorder, CKD stage 3, gastroesophageal reflux disease who presents to the emergency department for evaluation generalized weakness and loose stools. Hypokalemia and hypomagnesemia. Resolved in the setting of GI losses.? repleted Diarrhea, viral gastroenteritis v/s in the setting of antibiotic use.? Symptomatic treatment for now.? GI panel pending cdiff neg Generalized weakness likely due to electrolyte abnormalities.? Monitor for improvement with correction of electrolyte abnormalities.? PT rec STR Ula-mukptsq-qvdmjszbw diabetes mellitus.? ss, ada diet Acute infected unstageable left great toe ulcer with acute osteomyelitis.? On IV ertapenem 1 g daily for 6 weeks as per ID Peripheral vascular disease.? On dual antiplatelet therapy and statin Essential hypertension.? Continue home antihypertensives CAD.? On antiplatelet agent, statin and beta-hilda Chronic kidney disease stage 3.? At baseline. Tobacco use disorder.? Counseled regarding cessation. COPD.? No exacerbation during admission.? Continue home inhaler Mood disorder.? Continue home mood stabilizers Normocytic anemia DVT prophylaxis: Lovenox DNR/DNI Attending Dr. Purvis continued hospital stay for treatment of electrolyte abnormalities Time Spent With Patient Time: Total time managing care of this patient today ____ minutes. Quality Stroke Does the patient have a stroke diagnosis?: No VTE Prior VTE?: No VTE Risk Level:: Medical - moderate - high VTE Device Contraindication: Treatment Not Indicated VTE Drug Contraindication: N/A - Med Ordered
[2023-01-26] MEDS: Cholecalciferol (Vitamin D3) 25 MCG TABLET PO (10:03)
[2023-01-26] MEDS: Metoprolol Tartrate 100 MG TABLET 200 MG PO ×2 (10:03→21:48)
[2023-01-26] MEDS: Aspirin Enteric Coated 81 MG TABLET.DR PO (10:03)
[2023-01-26] MEDS: lisinopriL 40 MG TABLET PO (10:03)
[2023-01-26] MEDS: amLODIPine Besylate 10 MG TABLET PO (10:03)
[2023-01-26] MEDS: SITagliptin Phosphate 50 MG TABLET PO (10:13)
--- NOTE | 2023-01-26 10:15 | MHC.CM.PN ---
Per ROUNDS discussion, Patient will need a PT Eval to assist with disposition. Patient is receiving IV Meropenem R/T (L) Toe Ulcer/Osteomyelitis. CM will follow.
[2023-01-26 11:13] LABS: Glucose, Whole Blood 285 mg/dL (60-115)
[2023-01-26] MEDS: Insulin Lispro 100 UNIT/ML 3 ML VIAL SUBCUT (11:43)
[2023-01-26 12:05] LABS: CDiff Gene PCR NEGATIVE (Negative)
--- NOTE | 2023-01-26 14:18 | MHC.CM.PN ---
PT is recommending STR and CM awaits bed availability/offers from a # of SNFs. Patient was active with [facility], who has indicated that Patient was not safe at home and did not have sufficient care/supports. CM will follow.
[2023-01-26] MEDS: Dextrose 50 % 25 GM/50 ML SYRINGE IVPUSH (16:26)
[2023-01-26 16:56] LABS: Glucose, Whole Blood 35 mg/dL (60-115)
[2023-01-26 17:03] LABS: Glucose, Whole Blood 225 mg/dL (60-115)
[2023-01-26 20:15] LABS: Glucose, Whole Blood 175 mg/dL (60-115)
[2023-01-26] MEDS: Mirtazapine 7.5 MG TABLET PO (21:48)
[2023-01-26] MEDS: Atorvastatin Calcium 40 MG TABLET PO (21:48)
[2023-01-26] MEDS: Enoxaparin Sodium 40 MG/0.4 ML SYRINGE SUBCUT (21:48)
--- NOTE | 2023-01-26 22:00 | PC.NURSE ---
patient is upset , she said that she wants to go home tonight , stated that she misses her home and have stuff to do . Rn spoke with pt's daughter Marian ,and she said that she will come to visit her mother tomorrow, she stated that she has no transportation tonight.Pt was informed that for AMA discharge ,no transportation is provided by the hospital. Nursing supervisor electronics inspection Radha and storage battery charger Cortney was notified . Patient assisted to the bathroom with the walker .
[2023-01-27] VITALS: BP 140/66; PULSE 72; RESP 20; TEMP 36.6; O2SAT 97
[2023-01-27 03:14] VITALS: BP 148/67; PULSE 76; RESP 20; TEMP 36.5; O2SAT 96
[2023-01-27] MEDS: Omeprazole 40 MG CAPSULE.DR PO (06:14)
[2023-01-27 07:34] LABS: Glucose, Whole Blood 112 mg/dL (60-115)
[2023-01-27 07:37] VITALS: BP 143/75; PULSE 90; RESP 20; TEMP 36.8; O2SAT 96
[2023-01-27] MEDS: Metoprolol Tartrate 100 MG TABLET 200 MG PO (08:47)
[2023-01-27] MEDS: amLODIPine Besylate 10 MG TABLET PO (08:47)
[2023-01-27] MEDS: Aspirin Enteric Coated 81 MG TABLET.DR PO (08:47)
[2023-01-27] MEDS: SITagliptin Phosphate 50 MG TABLET PO (08:47)
[2023-01-27] MEDS: 0.9 % Sodium Chloride Flush 3 ML SYRINGE IVFLUSH (08:48)
[2023-01-27] MEDS: lisinopriL 40 MG TABLET PO (08:48)
[2023-01-27] MEDS: Cholecalciferol (Vitamin D3) 25 MCG TABLET PO (08:48)
--- NOTE | 2023-01-27 08:53 | P.DS_ITS ---
DS: Providers Provider Date of Service: 01/27/23 Date of admission: 01/24/23 20:33 Primary care physician: Gene Sanchez MD DS: Diagnosis Discharge Diagnosis (1) Weakness: Status: Acute DS: Summary Hospital Course Hospital Course: History and physical as per admitting provider. This is a 77-year-old female with pertinent history of CAD, qbc-roafxls-gcfcoyhyf diabetes mellitus, essential hypertension, tobacco use disorder, CKD stage 3, gastroesophageal reflux disease who presents to the emergency department for evaluation generalized weakness and loose stools.? Patient was recently admitted and discharged on 01/19 for treatment of acute infected unstageable left great toe ulcer with acute osteomyelitis.? Patient states that over the last 2 days she had multiple episodes of nausea and nonbloody diarrhea.? She feels weak and unable to get up and walk.? No focal weakness.? Patient denies fever, chills, chest discomfort, palpitations, shortness of breath, abdominal pain, changes in urinary habits The emergency department, patient was found to have low potassium and magnesium 77-year-old woman treated for hypokalemia and hypomagnesia secondary to viral gastroenteritis with diarrhea in the setting of antibiotic use. Patient's vital signs were repleted and she received IV fluids, GI panel and C diff negative. She did have some generalized weakness secondary to the electrolyte abnormalities and this did significantly improve however physical therapy recommended short-term rehab and patient adamantly declined. Her daughter attempted to convince her to go as her daughter feels like she needs some rehab to get stronger but she continued to decline. Of note the patient also has an unstageable left great toe ulcer with osteomyelitis that was treating during her previous hospitalization and was continued on meropenem. Her last dose of ert apenem will be in February and she will continue with visiting nurse for assistance with this. There was some concerns for patient's safety in the home, however patient is alert and oriented to person place time and situation. She adamantly declines short-term rehab and wants to go home. She will be seen and evaluated by the visiting nurse service to reinstate services and continue her IV ertapenem. It is likely that an elder at risk referral will be filed. As the patient does have family including a daughter and granddaughter but lives alone and tends to be somewhat unsteady on her feet. She is aware that she will have an elder at risk referral placed. This case was discussed with patient's assigned window caser as well as the immigration case worker director, Bev Grubbs. The patient akilah l be discharged home, her daughter is aware and patient will resume services with [facility]. peripheral vascular disease.? On dual antiplatelet therapy and statin Essential hypertension.? Continue home antihypertensives CAD.? On antiplatelet agent, statin and beta-hilda Chronic kidney disease stage 3.? At baseline. Tobacco use disorder.? Counseled regarding cessation. COPD.? No exacerbation during admission.? Continue home inhaler Mood disorder.? Continue home mood stabilizers Normocytic anemia stable Time Spent with Patient Time attestation: Total time managing care of this patient today ____ minutes. Discharge coordination time: Greater than 30 minutes Quality: Safe Use of Opioids Does Pt have an Active Cancer Diagnosis on the Problem List?: No Quality: Stroke Does the patient have a stroke diagnosis?: No Physical Exam Vital Signs: Vital Signs: Last Vital Signs Temp 98.2 F 01/27/23 07:37 Pulse 90 01/27/23 07:37 Resp 20 01/27/23 07:37 BP 143/75 H 01/27/23 07:37 Pulse Ox 96 01/27/23 07:37 O2 Del Method Room Air 01/27/23 07:37 BMI result Body Mass Index 22.9 Appearing in no acute distress head is normocephalic atraumatic eyes pupils are PERRLA sclera is anicteric mouth throat mucous membranes are intact and moist neck is supple no lymphadenopathy, no JVD noted lung sounds are clear to auscultation heart regular rate rhythm, clear S1, S2 positive bowel sounds, abdomen is soft, nontender neuro patient is alert x3, no focal deficits DS: Data Data Completed and Pending Completed studies during hospitalization [Text1]: Procedures Dilation of Left External Iliac Artery with Intraluminal Device, using Drug- Coated Balloon, Percutaneous Approach (01/13/23) Insertion of Infusion Device into Superior Vena Cava, Percutaneous Approach (01/13/23) Ultrasonography of Superior Vena Cava, Guidance (01/13/23) Labs on day of discharge: Laboratory Results - last 24 hr 01/26/23 01/26/23 01/26/23 10:10 10:10 11:05 POC Glucose 285 H Stl C. cayetanensis PCR Cancelled Stool Rotavirus A PCR Cancelled Stl Adenov F 40/41 PCR Cancelled Stool Astrovirus (PCR) Cancelled Stool Campylobacter PCR Cancelled Stool Cryptosporidium PCR Cancelled Stl Sh Tox Pr E STEC PCR Cancelled Stool E coli O157 PCR Cancelled Stl Enterotoxigenic E PCR Cancelled Stool EPEC (PCR) Cancelled Stool EAEC (PCR) Cancelled Stl E. histolytica PCR Cancelled Stool Giardia Lamblia PCR Cancelled Stl P. shigelloides PCR Cancelled Stool Salmonella PCR Cancelled Stool Sapovirus (PCR) Cancelled Stl Shigella/EIEC PCR Cancelled St Y.enterocolitica PCR Cancelled Stool Vibrio (PCR) Cancelled Stl Vibrio cholerae PCR Cancelled Stl Norovirus GI/GII PCR Cancelled C. difficile Tox B Gene NEGATIVE 01/26/23 01/26/23 01/26/23 16:22 16:59 20:11 POC Glucose 35 L* 225 H 175 H Stl C. cayetanensis PCR Stool Rotavirus A PCR Stl Adenov F PCR Stool Astrovirus (PCR) Stool Campylobacter PCR Stool Cryptosporidium PCR Stl Sh Tox Pr E STEC PCR Stool E coli O157 PCR Stl Enterotoxigenic E PCR Stool EPEC (PCR) Stool EAEC (PCR) Stl E. histolytica PCR Stool Giardia Lamblia PCR Stl P. shigelloides PCR Stool Salmonella PCR Stool Sapovirus (PCR) Stl Shigella/EIEC PCR St Y.enterocolitica PCR Stool Vibrio (PCR) Stl Vibrio cholerae PCR Stl Norovirus GI/GII PCR C. difficile Tox B Gene 01/27/23 07:26 POC Glucose 112 Stl C. cayetanensis PCR Stool Rotavirus A PCR Stl Adenov F 40/41 PCR Stool Astrovirus (PCR) Stool Campylobacter PCR Stool Cryptosporidium PCR Stl Sh Tox Pr E STEC PCR Stool E coli O157 PCR Stl Enterotoxigenic E PCR Stool EPEC (PCR) Stool EAEC (PCR) Stl E. histolytica PCR Stool Giardia Lamblia PCR Stl P. shigelloides PCR Stool Salmonella PCR Stool Sapovirus (PCR) Stl Shigella/EIEC PCR St Y.enterocolitica PCR Stool Vibrio (PCR) Stl Vibrio cholerae PCR Stl Norovirus GI/GII PCR C. difficile Tox B Gene Discharge Plan Discharge Anticipated Discharge Date/Time: 01/27/23 08:44 Patient Disposition: Home Health Service Discharge Diagnosis: Hypokalemia Hypomagnesemia Viral gastroenteritis Referrals: Gene Sanchez MD [Primary Care Provider] - 1 Week Discharge Medications: Continued nortriptyline 25 mg capsule 1 - 2 cap PO BEDTIME PRN (Reason: Back Pain / foot pain) budesonide-formoterol [Symbicort] 160-4.5 mcg/actuation HFA aerosol inhaler 1 puff PO BID PRN (Reason: Shortness Of Breath Or Wheezing) aspirin 81 mg tablet,delayed release (DR/EC) 81 mg PO DAILY ertapenem 1 gram recon soln 1 g IV DAILY 42 Days Qty: 10 0RF mirtazapine 7.5 mg Tablet 7.5 mg PO BEDTIME Qty: 14 0RF albuterol sulfate [Ventolin HFA] 90 mcg/actuation HFA aerosol inhaler 2 puff INHALATION QID PRN (Reason: Wheezing) atorvastatin 40 mg tablet 40 mg PO BEDTIME cholecalciferol (vitamin D3) 25 mcg (1,000 unit) capsule 25 mcg PO DAILY amlodipine 10 mg tablet 10 mg PO DAILY lisinopril 40 mg tablet 40 mg PO DAILY Januvia 50 mg tablet 50 mg PO DAILY nateglinide 60 mg tablet 60 mg PO TIDAC Rx Instructions: give before meal(s) metoprolol tartrate 100 mg tablet 200 mg PO BID omeprazole 40 mg capsule,delayed release(DR/EC) 40 mg PO DAILY@0630 Discharge Orders: Discharge Order (Routine); Ordered 01/27/23 Ordered By: Blaire Champagne Diet: Advance to usual diet Activity on Discharge: As tolerated Stand Alone Forms: Patient Portal Discharge page Care Plan Goals: Complete resolution of symptoms Health Concerns: Hypokalemia Hypomagnesemia Viral gastroenteritis Plan of Treatment: Follow-up with primary care provider as needed Continue IV antibiotics, ertapenem, last 03/02/23 Assessment: See discharge summary
--- NOTE | 2023-01-27 10:28 | MHC.CM.PN ---
PT is recommending STR and Patient still requires LT IV ABT. Patient has several SNF bed offers, including a private room at [facility]; Patient insists that she is returning home and she is aware that by leaving AMA, she will not have access to home services ([facility] hs said that they can go out to the home but should they get there and feel that Patient is not safe, they will not resume services)(Under those conditions, a dc to home is not a safe dc/not a way to confirm that Patient would have services until the Patient has already returned to the home). Patient lives alone and CM spoke to Patient's Daughter/Marian this morning at listed number, who has said she can only assist minimally d/t her own responsibilities (disabled child) and physical limitations.CM has relayed this information to SPECIAL FORCES SPECIALIST and Patient indicates that she will be taking a bus home. CM will follow.
[2023-01-27 11:34] LABS: Glucose, Whole Blood 224 mg/dL (60-115)
[2023-01-27 11:42] VITALS: BP 159/66; PULSE 93; RESP 20; TEMP 36; O2SAT 98
--- NOTE | 2023-01-27 12:29 | MHC.CM.PN ---
Per COMBINE INSPECTOR, Patient will be medically cleared for dc to home today with services. Both [facility] & [facility] are aware of today's dc to home, via [facility]/Ambulance at 3:320 PM.
--- NOTE | 2023-01-27 12:32 | MHC.CM.PN ---
CM has left a detailed message for Daughter/Marian @ [phone], informing her of the dc plan.
--- NOTE | 2023-01-27 12:49 | MHC.CM.PN ---
[facility] report filed, Intake ID is [id number].
--- NOTE | 2023-01-27 13:19 | MHC.CM.PN ---
Per [facility], Patient will be getting 8 hours/week of Homemaker services and will be evaluated for personal care hours.
--- NOTE | 2023-01-27 13:54 | MHC.CM.PN ---
CROW spoke with Janey from [facility] and answered all of her questions.
[2023-01-27] MEDS: Ertapenem Sodium 1 GM in 0.9 % Sodium Chloride 50 ML IV (14:44)
--- NOTE | 2023-01-27 16:05 | MHC.CM.PN ---
CM returned a call to [facility] @[phone], EXT. [phone] and answered all questions.
== END 2023-01-27 16:51 | disposition home health service (06) ==
LOC: HO.ED 16:51 → HO.EDOVER 20:46 → HO.IMC 01-25 07:31
PROVIDERS: Physician Assistant Medical; Admitting Provider Student in an Organized Health Care Education/Training Program; Emergency Provider Emergency Medicine; PCP Internal Medicine; Visit Provider Nurse Practitioner Acute Care
DX: E87.6 Hypokalemia (principal); E83.42 Hypomagnesemia; A08.4 Viral intestinal infection, unspecified; M86.8X7 Other osteomyelitis, ankle and foot; I25.10 Atherosclerotic heart disease of native coronary artery without angina pectoris; E11.22 Type 2 diabetes mellitus with diabetic chronic kidney disease; I12.9 Hypertensive chronic kidney disease with stage 1 through stage 4 chronic kidney disease, or unspecified chronic kidney disease; N18.30 Chronic kidney disease, stage 3 unspecified; I73.9 Peripheral vascular disease, unspecified; F32.9 Major depressive disorder, single episode, unspecified; K21.9 Gastro-esophageal reflux disease without esophagitis; J44.9 Chronic obstructive pulmonary disease, unspecified; D64.9 Anemia, unspecified; Z20.822 Contact with and (suspected) exposure to COVID-19; Z79.4 Long term (current) use of insulin; Z79.899 Other long term (current) drug therapy; Z72.0 Tobacco use
CPT/HCPCS: 36415; 71046; 80048; 80053; 81001; 82947; 83735; 84484; 85025; 87493; 87635; 93005; 96365; 96366; 96367; 96372; 96375; 97162; 99222; 99285; J1335; J1650; J2185; J3475

== ENCOUNTER → 2023-01-24 16:14 | Outpatient (BNV) | payer MEDICARE, MEDICAID, SELFPAY | PROVIDERS: Admitting Provider Student in an Organized Health Care Education/Training Program; Emergency Provider Emergency Medicine; PCP Internal Medicine; Visit Provider Internal Medicine Cardiovascular Disease | DX: I49.9 Cardiac arrhythmia, unspecified (principal) | CPT/HCPCS: 93010 ==

== ENCOUNTER → 2023-01-24 20:33 | Outpatient (BNV) | payer MEDICARE, MEDICAID, SELFPAY | PROVIDERS: Admitting Provider Student in an Organized Health Care Education/Training Program; Emergency Provider Emergency Medicine; PCP Internal Medicine; Visit Provider Student in an Organized Health Care Education/Training Program | DX: R53.1 Weakness (principal) | CPT/HCPCS: 99222; 99232; 99239 ==

== ENCOUNTER 2023-01-28 11:43 | Emergency (ER) | payer MEDICARE, MEDICAID, SELFPAY ==
[2023-01-28 12:04] VITALS: BP 110/70; BP 120/52; PULSE 73; PULSE 95; RESP 18; TEMP 36.6; O2SAT 93; O2SAT 98; BMI 22.2
[2023-01-28 15:04] LABS: IDNOW Serial# 9DB6401D
[2023-01-28 15:05] LABS: COVID-19 Test Negative (Negative)
--- NOTE | 2023-01-28 15:34 | PHA.MEDREC ---
Pharmacy Consult ? Medication Reconciliation Pharmacy has completed the medication reconciliation. Patient discharge 01/27/23. Utilized discharge summary for med rec. Mary Grace DuarteD
[2023-01-28 15:59] VITALS: BP 134/54; PULSE 83; RESP 18; TEMP 36.6; O2SAT 94
--- NOTE | 2023-01-28 16:15 | ED_ITS ---
HPI - Weakness General Chief complaint: Weakness Stated complaint: IINCREASED WEAKNESS S/P D/C T-1 PER EMS Time Seen by Provider: 01/28/23 11:52 Source: patient and EMS Mode of arrival: EMS Limitations: no limitations History of Present Illness HPI Narrative: 77-year-old female discharged yesterday from the hospital with a toe infection. She went home, was generally weak. She was unable to get off her toilet for approximately 20-30 minutes. Eventually she was able to get up and walk but had a very difficult time. She has had herself on the kitchen chair. When visiting nurse came today to evaluate the patient for intravenous antibiotics, she instructed the nurse that she was unable to get up and fortunately the door was open. Patient then was transferred to the hospital by EMS. Patient's symptoms are generalized weakness. There is no significant pain. She has no recent fevers or chills. Her symptoms are worsened by attempts to ambulate. They are better with rest. Patient left the hospital AMA after the recommendation to go to long-term for rehabilitation because she was anxious that she might be transition to long-term care. Related Data Home Medications Medication Instructions Recorded Confirmed amlodipine 10 mg tablet 10 mg PO DAILY 05/23/20 01/28/23 atorvastatin 40 mg tablet 40 mg PO BEDTIME 05/23/20 01/25/23 cholecalciferol (vitamin D3) 25 25 mcg PO DAILY 05/23/20 01/28/23 mcg (1,000 unit) capsule lisinopril 40 mg tablet 40 mg PO DAILY 05/23/20 01/28/23 metoprolol tartrate 100 mg tablet 200 mg PO BID 05/23/20 01/28/23 nateglinide 60 mg tablet 60 mg PO TIDAC 05/23/20 01/28/23 omeprazole 40 mg capsule,delayed 40 mg PO DAILY@0630 05/23/20 01/28/23 release sitagliptin phosphate 50 mg tablet 50 mg PO DAILY 05/23/20 01/28/23 (Januvia) budesonide-formoterol HFA 160 1 puff PO BID PRN Shortness Of 12/27/21 01/28/23 mcg-4.5 mcg/actuation aerosol Breath Or Wheezing inhaler (Symbicort) nortriptyline 25 mg capsule 1 - 2 cap PO BEDTIME PRN Back Pain 12/27/21 01/28/23 / foot pain aspirin 81 mg tablet,delayed 81 mg PO DAILY 01/13/23 01/28/23 release albuterol sulfate 90 mcg/actuation 2 puff inhalation QID PRN Wheezing 01/25/23 01/28/23 aerosol inhaler (Ventolin HFA) Previous Rx's Medication Instructions Recorded ertapenem 1 gram solution for 1 g IV DAILY 6 weeks #10 ea 01/19/23 injection mirtazapine 7.5 mg tablet 7.5 mg PO BEDTIME #14 tabs 01/19/23 Allergies Allergy/AdvReac Type Severity Reaction Status Date / Time silver Allergy Unknown SKIN TEARS Verified 02/27/22 11:37 [From [employer] AG MESH] TAPE,PAPER Allergy Unknown UNKNOWN Uncoded 02/27/22 11:37 Review of Systems Review of Systems: CONSTITUTIONAL: Denies weight loss, fever and chills. HEENT: Denies changes in vision and hearing. RESPIRATORY: Denies SOB and cough. CV: Denies palpitations no CP. GI: Denies abdominal pain, nausea, vomiting and diarrhea. : Denies dysuria and urinary frequency. MSK: Denies myalgia and joint pain. SKIN: Denies rash and pruritus. NEUROLOGICAL: Denies headache and syncope. PSYCHIATRIC: Denies recent changes in mood. Denies anxiety and depression. All other ROS are negative unless in HPI PMFSH Past Medical History Medical History Adjustment disorder CAD (coronary artery disease) Carotid artery occlusion CKD (chronic kidney disease) stage 3, GFR 30-59 ml/min Diabetes Diabetic ketoacidosis GERD (gastroesophageal reflux disease) GERD (gastroesophageal reflux disease) Hiatal hernia HTN (hypertension) Major depressive disorder, recurrent, moderate PAD (peripheral artery disease) Surgical History History of esophagogastroduodenoscopy (EGD) Family History Family History Father No problems noted. Mother No problems noted. Social History Social History Household Members: None Housing: Apartment Do you presently have visiting nurse or other home services: No Alcohol intake: never Patient Tobacco Use Status: Current someday Tobacco user Tobacco use type: Cigarette Cigarette Packs Per Day: 0.5 Cigarettes Per Day: 10.0 Substance Use Type: Marijuana Advance Directives: Yes Advance Directives on File: Yes Advance Directives Date on File: 01/14/23 service: No Current occupational status: retired Physical Exam Vital Signs: Vital Signs: Last Vital Signs Temp 97.9 F 01/28/23 15:59 Pulse 83 01/28/23 15:59 Resp 18 01/28/23 15:59 BP 134/54 L 01/28/23 15:59 Pulse Ox 94 01/28/23 15:59 O2 Del Method Room Air 01/28/23 15:59 BMI result Body Mass Index 22.2 GEN: Well developed, no acute distress, alert, oriented HEENT: Normocephalic, atraumatic, normal external ears, nose appears normal, no oropharyngeal edema or exudates Eyes: Normal to appearance Neck: Supple, no lymphadenopathy Respiratory: Talks in complete sentences, no respiratory distress, clear to auscultation bilaterally Cardiovascular: Regular rate and rhythm, no murmurs rubs or gallops Abdomen: Soft, nontender, nondistended, no guarding, no rebound Back: No CVA tenderness Extremities: No clubbing cyanosis or edema Neurologic: No focal neurologic deficits, cranial nerves 2-12 intact, strength is 5/5 bilaterally Skin: No rash great toe wound healing Course Reevaluation(s) Reevaluation #1: patient's care will be transitioned to the oncoming provider. She is pending case management and placement in short-term rehabilitation. Patient be placed in physician observation. Time: 16:19 Medical Decision Making Medical Decision Making MDM Narrative: Patient presents with generalized weakness. I reviewed labs from her discharge this recently. Generalized weakness is most likely due to deconditioning. There is no evidence of acute bleeding to suggest worsening or progression of any kind of anemia. Doubt any acute electrolyte abnormality. Patient is eating and drinking appropriately. She has no focal deficits to suggest stroke, neuropathy. At this point, I have contacted Case Managemen to assist with placement. Patient has significant anxiety related issues to a short-term rehabilitation. I spent a significant amount time communicating with the patient that the intention is to get her back home safely and not to transition her to long-term care. Differential Diagnosis Differential Diagnoses: The differential diagnosis associated with the presentation includes ( See above) Admission/Observation Consideration of admission/observation: Escalation of care including admission/observation considered Consult Healthcare Provider Management of the patient was discussed with: Heating Unit Installer ( case management) Lab Data MDM Lab Attestation statement: I reviewed the patient's lab results. Labs: Lab Results 01/28/23 Range/Units 14:36 COVID-19 (INGE) Negative (Negative) COVID-19 Clin Com See Note Independent Historian Clinical information obtained from an independent historian. History obtained from or confirmed by: EMS External Record Review External record reviewed: Inpatient record ( recent discharge summary) Tests considered The following testing was considered but not selected: lab work Prescription Management I considered prescription management with: Antibiotic Discharge Plan Discharge Clinical Impression: Weakness, Diabetic foot ulcer Patient Disposition: Still a Patient Prescriptions: No Action nortriptyline 25 mg capsule 1 - 2 cap PO BEDTIME PRN (Reason: Back Pain / foot pain) budesonide-formoterol [Symbicort] 160-4.5 mcg/actuation HFA aerosol inhaler 1 puff PO BID PRN (Reason: Shortness Of Breath Or Wheezing) aspirin 81 mg tablet,delayed release (DR/EC) 81 mg PO DAILY ertapenem 1 gram recon soln 1 g IV DAILY 42 Days Qty: 10 0RF mirtazapine 7.5 mg Tablet 7.5 mg PO BEDTIME Qty: 14 0RF albuterol sulfate [Ventolin HFA] 90 mcg/actuation HFA aerosol inhaler 2 puff INHALATION QID PRN (Reason: Wheezing) atorvastatin 40 mg tablet 40 mg PO BEDTIME cholecalciferol (vitamin D3) 25 mcg (1,000 unit) capsule 25 mcg PO DAILY amlodipine 10 mg tablet 10 mg PO DAILY lisinopril 40 mg tablet 40 mg PO DAILY Januvia 50 mg tablet 50 mg PO DAILY nateglinide 60 mg tablet 60 mg PO TIDAC Rx Instructions: give before meal(s) metoprolol tartrate 100 mg tablet 200 mg PO BID omeprazole 40 mg capsule,delayed release(DR/EC) 40 mg PO DAILY@0630
--- NOTE | 2023-01-28 17:06 | HE.PHANOTE ---
Patient is getting ertapenem infusions at home. Spoke with Dr. Dowd, while patient is in the ER we will be switching to Meropenem.
--- NOTE | 2023-01-28 17:26 | MHC.CM.ED ---
CM met with patient for discharge planning. A&Ox3. Pt agreeable to STR now. Was discharged from [facility] yesterday with PT recommending STR, but patient thought she could care for herself at home. Pt normally independent. Pt realized she was too weak and when the [facility] came today, she could not get off the toilet and they sent her to the ED. Pt lives alone. Uses a cane/walker. Fully vax-Moderna x2 & Pfizer x2. PCP is Dr. Cornejo. D/C yesterday with IV antibiotics for 6 weeks. [facility] and [facility]. [facility] was able to offer a bed and patient is agreeable. She is concerned that she will be tricked into LTC. CM explained that she is only going to STR. Pt asking if she can have visitors. CM assured her she can have visitors and she will have a private room. Pt is agreeable. Pt receiving her antibiotic prior to transport. BLS ordered for 6pm. Pt, provider and RN aware. [facility] with community aide. CM following for discharge planning.
[2023-01-28] MEDS: amLODIPine Besylate 10 MG TABLET PO (17:32)
== END 2023-01-28 18:14 | disposition skilled nursing facility (03) ==
PROVIDERS: Emergency Provider Emergency Medicine; PCP Internal Medicine
DX: R53.1 Weakness (principal); E11.621 Type 2 diabetes mellitus with foot ulcer; F17.210 Nicotine dependence, cigarettes, uncomplicated; F12.90 Cannabis use, unspecified, uncomplicated; Z20.822 Contact with and (suspected) exposure to COVID-19
CPT/HCPCS: 87635; 96365; 99284; 99285; J2185

== ENCOUNTER 2023-02-13 14:27 | Outpatient (AMB) | payer MEDICARE, MEDICAID, SELFPAY ==
[2023-02-13 14:30] VITALS: BP 128/72; PULSE 68; O2SAT 98
--- NOTE | 2023-02-13 14:30 | MHC.OFFVIS ---
Intake Vital Signs 02/13/23 14:30 Height 5 ft 2 in BP 128/72 Pulse 68 Pulse Oximetry (%) 98 Intake Visit Reasons: ref.[facility],Ertapenem last day 03/02/23 Allergies silver [From [employer] MESH] Allergy (Unknown, Verified 02/13/23 14:30) SKIN TEARS TAPE,PAPER Allergy (Unknown, Uncoded 02/13/23 14:30) UNKNOWN HPI ref.[facility],Ertapenem last day 03/02/23 HPI Details She presents for followup left great toe OM. She comes in stretcher and is tearful since doesnt want to continue antibiotics since in facility. [facility] Medical History Adjustment disorder CAD (coronary artery disease) Carotid artery occlusion CKD (chronic kidney disease) stage 3, GFR 30-59 ml/min Diabetes Diabetic ketoacidosis GERD (gastroesophageal reflux disease) GERD (gastroesophageal reflux disease) Hiatal hernia HTN (hypertension) Major depressive disorder, recurrent, moderate PAD (peripheral artery disease) Surgical History History of esophagogastroduodenoscopy (EGD) Family History Father No problems noted. Mother No problems noted. Social History Household Members: None Housing: Apartment Do you presently have visiting nurse or other home services: No Alcohol intake: never Patient Tobacco Use Status: Current someday Tobacco user Tobacco use type: Cigarette Cigarette Packs Per Day: 0.5 Cigarettes Per Day: 10.0 Substance Use Type: Marijuana Advance Directives Date on File: 01/14/23 service: No Current occupational status: retired Review of Systems Const All systems reviewed & are unremarkable except as noted in HPI and below Physical Exam Vital Signs: Last Vital Signs Pulse 68 02/13/23 14:30 BP 128/72 02/13/23 14:30 Pulse Ox 98 02/13/23 14:30 Const Other: General: cooperative Orientation/consciousness: patient oriented x3 HEENT Head: Yes normal to inspection Mouth: Normal oral and palatal mucosa present Eyes General: appearance normal, both eyes and all related structures Pupils: Equal, round and reactive pupils present Resp Effort & Inspection: normal respiratory effort Cardio Rate: regular rate Rhythm: regular rhythm GI Palpation (GI): Soft to palpation and nontender General: Yes no CVA tenderness Back/Spine/Pelvis Back: no CVA tenderness Skin General skin exam: no rashes or lesions noted Neuro General: patient oriented x3 Cranial nerves: Yes CN's II-XII intact bilaterally and Yes Equal, round and reactive pupils present Extrem Other: left great toe scab Psych Appearance: grossly normal Assessment & Plan Assessment & Plan (1) Diabetic foot ulcer: Comment: She has OM foot and should finish antibiotics 03/02. Code(s): E11.621 - Type 2 diabetes mellitus with foot ulcer; L97.509 - Non-pressure chronic ulcer of other part of unspecified foot with unspecified severity Plan: Continue Ertapenem. If she refuses further IV therapy less chance probably of healing. See in two weeks. Coding Level of Care Code Est Pt Level 3 (84804) Diagnoses Diabetic foot ulcer E11.621; L97.509
== END 2023-02-13 16:16 | disposition home or self-care (01) ==
LOC: HO.HID 14:27
PROVIDERS: PCP Internal Medicine; Visit Provider Internal Medicine
DX: E11.621 Type 2 diabetes mellitus with foot ulcer (principal); L97.509 Non-pressure chronic ulcer of other part of unspecified foot with unspecified severity
CPT/HCPCS: 99213

== ENCOUNTER → 2023-02-13 14:27 | Outpatient (BNVA) | payer MEDICARE, MEDICAID, SELFPAY | PROVIDERS: PCP Internal Medicine; Visit Provider Internal Medicine | DX: E11.65 Type 2 diabetes mellitus with hyperglycemia (principal); E11.10 Type 2 diabetes mellitus with ketoacidosis without coma; E11.22 Type 2 diabetes mellitus with diabetic chronic kidney disease; E11.621 Type 2 diabetes mellitus with foot ulcer; L97.519 Non-pressure chronic ulcer of other part of right foot with unspecified severity; M86.172 Other acute osteomyelitis, left ankle and foot; I12.9 Hypertensive chronic kidney disease with stage 1 through stage 4 chronic kidney disease, or unspecified chronic kidney disease; N18.30 Chronic kidney disease, stage 3 unspecified | CPT/HCPCS: 99212 ==

== ENCOUNTER 2023-04-17 11:38 | Outpatient (RCR) | payer MEDICARE, MEDICAID, SELFPAY | END 2023-06-03 17:00 | disposition home or self-care (01) | LOC: HO.WCC 11:38 | PROVIDERS: PCP Internal Medicine; Visit Provider Physician Assistant | DX: E11.621 Type 2 diabetes mellitus with foot ulcer (principal); L97.522 Non-pressure chronic ulcer of other part of left foot with fat layer exposed; E11.51 Type 2 diabetes mellitus with diabetic peripheral angiopathy without gangrene; E11.22 Type 2 diabetes mellitus with diabetic chronic kidney disease; I12.9 Hypertensive chronic kidney disease with stage 1 through stage 4 chronic kidney disease, or unspecified chronic kidney disease; N18.9 Chronic kidney disease, unspecified; F17.210 Nicotine dependence, cigarettes, uncomplicated; F12.90 Cannabis use, unspecified, uncomplicated; L53.9 Erythematous condition, unspecified | CPT/HCPCS: 97597; 99212; 99214 ==

== ENCOUNTER 2023-04-23 12:46 | Outpatient (AMB) | payer MEDICARE, MEDICAID, SELFPAY ==
[2023-04-23 12:57] VITALS: BMI 22.1
--- NOTE | 2023-04-23 12:57 | MHC.OFFVIS ---
Intake Vital Signs 04/23/23 12:57 Height 5 ft 2 in Weight 121 lb BMI 22.1 Intake Visit Reasons: Overdue Post Angio January 2023, re-ref wound Intake Note: follow up overdue s/p Left LE Angio 01/15/23 w/ non-healing ulcer on great toe of oleft foot. Pt states she has a scab over the wound and was seen by woundcare last week and they did not touch it. They wanted to wait for Vascular eval per pt. Pt states she uses betadine from the woundcare center, sometimes she uses bangages but it doesn't bother her and doesnt drain. States wound has shrunk. No complaints about legs or pain. pt states she is not on Plavix Accompanied by: Self / Same As Patient Allergies silver [From TEGADERM AG MESH] Allergy (Unknown, Verified 04/23/23 13:05) SKIN TEARS TAPE,PAPER Allergy (Mild, Uncoded 04/23/23 13:05) Itching HPI Overdue Post Angio January 2023, re-ref wound HPI Details Very pleasant 77-year-old female presents for follow-up from the hospital regarding left leg endovascular intervention. She reports that her leg had done significantly better from this. Upon discharge she was not on aspirin and Plavix. She now presents for follow-up from the [facility]. She has a nonhealing ulcer on the plantar aspect of the left great toe. [facility] Medical History (Updated 04/23/23 @ 13:33 by Cole Mcginnis MD) PAD (peripheral artery disease) Diabetic ketoacidosis Major depressive disorder, recurrent, moderate Adjustment disorder CAD (coronary artery disease) GERD (gastroesophageal reflux disease) CKD (chronic kidney disease) stage 3, GFR 30-59 ml/min HTN (hypertension) Carotid artery occlusion Diabetes Hiatal hernia GERD (gastroesophageal reflux disease) Surgical History History of esophagogastroduodenoscopy (EGD) Family History Father No problems noted. Mother No problems noted. Social History Household Members: None Housing: Apartment Do you presently have visiting nurse or other home services: No Alcohol intake: never Patient Tobacco Use Status: Current someday Tobacco user Tobacco use type: Cigarette Cigarette Packs Per Day: 0.5 Cigarettes Per Day: 10.0 Substance Use Type: Marijuana Advance Directives Date on File: 01/14/23 service: No Current occupational status: retired Review of Systems Const All systems reviewed & are unremarkable except as noted in HPI and below Reports no additional complaints ENT Reports Normal hearing present Card Denies chest pain, Denies chest pain at rest, Denies chest pain with activity and Denies pedal edema Resp Denies cough GI Denies abdominal pain Musc Denies abnormal gait, Denies muscle cramps and Denies radiating pain into limb Skin/Breast Denies skin ulcer and Denies wounds Neuro Reports Normal hearing present and Denies abnormal gait Psych Reports no additional complaints Physical Exam Vital Signs: BMI result Body Mass Index 22.1 Const General: cooperative, healthy appearing and comfortable Orientation/consciousness: oriented to person, oriented to place and oriented to time HEENT Head: Yes normal to inspection Neck Neck: Yes normal visual inspection Carotids: no bruits Chest Chest palpation & inspection: normal inspection of the chest Resp Effort & Inspection: normal respiratory effort and able to speak in complete sentences Auscultation: clear to auscultation bilaterally, no crackles, no rales, no rhonchi and no wheezes Cardio Rate: regular rate Rhythm: regular rhythm Heart sounds: S1 normal heart sound present and S2 normal heart sound present Bruits: no carotid bruits Peripheral pulses: Peripheral pulses 2+ throughout GI Inspection: Yes normal to inspection Skin Other: Left great toe dry eschar 2 cm Wounds: no wounds Hair: normal Neuro General: oriented to person, oriented to place and oriented to time Cranial nerves: Yes CN's II-XII intact bilaterally and Yes Normal hearing present Cognition (Neuro): normal cognition Motor exam (neuro): 5/5 motor strength present throughout Extrem Other: venous exam: No significant superficial varicosities or spider telangiectasias, minimal edema General: No clubbing, No cyanosis and No edema Psych Appearance: grossly normal Mental Status: mental status grossly normal Speech and movement: Normal speech and movement present Assessment & Plan Assessment & Plan (1) Diabetic foot ulcer: Comment: She has OM foot and should finish antibiotics 03/02. Code(s): E11.621 - Type 2 diabetes mellitus with foot ulcer; L97.509 - Non-pressure chronic ulcer of other part of unspecified foot with unspecified severity (2) PAD (peripheral artery disease): Comment: 01/15/2023 left SFA atherectomy and plasty, left external iliac plasty and stent Code(s): I73.9 - Peripheral vascular disease, unspecified Plan: In short patient has done fairly well status post endovascular intervention. Unfortunately she had not followed up after the procedure. We did reiterate the importance of aspirin and Plavix. This was Aneta prescribed to her. I have taken the liberty of ordering noninvasive arterial testing as well. She will follow up with us after testing. In terms of that eschar she will be following up from the [facility]. It does need to be removed as there is underlying healthy tissue. Thank you for allowing us to assist in her care. If there are questions or concerns please do not hesitate to contact us. Orders: Orders US arterial duplex LE BI 1 Week I73.9 - Peripheral vascular disease, unspecified Medications: New clopidogrel (Plavix) 75 mg PO DAILY 90 tabs 1RF I73.9 - Peripheral vascular disease, unspecified Coding Level of Care Code Est Pt Level 4 (14646) Diagnoses Diabetic foot ulcer E11.621; L97.509 PAD (peripheral artery disease) I73.9
== END 2023-04-23 13:32 | disposition home or self-care (01) ==
PROVIDERS: PCP Internal Medicine; Visit Provider Surgery Vascular Surgery
DX: E11.621 Type 2 diabetes mellitus with foot ulcer (principal); L97.529 Non-pressure chronic ulcer of other part of left foot with unspecified severity; I73.9 Peripheral vascular disease, unspecified; Z95.820 Peripheral vascular angioplasty status with implants and grafts
CPT/HCPCS: 99214

== ENCOUNTER → 2023-04-23 12:46 | Outpatient (BNVA) | payer MEDICARE, MEDICAID, SELFPAY | PROVIDERS: PCP Internal Medicine; Visit Provider Surgery Vascular Surgery | DX: E11.621 Type 2 diabetes mellitus with foot ulcer (principal); L97.529 Non-pressure chronic ulcer of other part of left foot with unspecified severity; E11.51 Type 2 diabetes mellitus with diabetic peripheral angiopathy without gangrene | CPT/HCPCS: 99212 ==

== ENCOUNTER 2023-06-02 12:51 | Outpatient (REF) | payer MEDICARE, MEDICAID, SELFPAY ==
--- NOTE | ~2023-06-02 | XR_ITS ---
EXAMINATION: XR LUMBOSACRAL SPINE CLINICAL INFORMATION: Reason for Exam CHRONIC MIDLINE LOWER BACK PAIN W.O SCIATICA COMPARISON: None TECHNIQUE: 3 views of the lumbar spine FINDINGS: There are 6 nonrib-bearing lumbar-type vertebral bodies with lumbarization of S1. The last well-formed disc space will be referred to as S1-S2. Vertebral body heights are maintained. Alignment is maintained. Mild multilevel degenerative disc disease with loss of disc space height and facet arthropathy. Atherosclerotic calcifications of the abdominal aorta. Left iliac vascular stent. XR/XR lumbar spine 2-3V IMPRESSION: 1. There are 6 nonrib-bearing lumbar-type vertebral bodies with lumbarization of S1. The last well-formed disc space will be referred to as S1-S2. 2. Mild multilevel degenerative disc disease with loss of disc space height and facet arthropathy.
== END 2023-06-02 12:52 | disposition home or self-care (01) ==
LOC: HO.US 12:51
PROVIDERS: PCP Internal Medicine; Visit Provider Surgery Vascular Surgery
DX: I73.9 Peripheral vascular disease, unspecified (principal)
CPT/HCPCS: 72100

== ENCOUNTER 2023-07-09 11:26 | Outpatient (REF) | payer MEDICARE, MEDICAID, SELFPAY | END 2023-07-09 11:27 | disposition home or self-care (01) | LOC: HO.CHCLDS 11:26 | PROVIDERS: Visit Provider Internal Medicine | DX: E11.22 Type 2 diabetes mellitus with diabetic chronic kidney disease (principal); N18.31 Chronic kidney disease, stage 3a | CPT/HCPCS: 36415; 80048 ==

== ENCOUNTER → 2023-07-31 12:40 | Outpatient (BNVA) | payer MEDICARE, MEDICAID, SELFPAY | PROVIDERS: PCP Internal Medicine; Visit Provider Internal Medicine Nephrology | DX: I15.0 Renovascular hypertension (principal); N18.31 Chronic kidney disease, stage 3a; I73.9 Peripheral vascular disease, unspecified; Z79.02 Long term (current) use of antithrombotics/antiplatelets; Z79.82 Long term (current) use of aspirin; Z95.820 Peripheral vascular angioplasty status with implants and grafts | CPT/HCPCS: 99202 ==

== ENCOUNTER 2023-07-31 13:06 | Outpatient (AMB) | payer MEDICARE, MEDICAID, SELFPAY ==
--- NOTE | 2023-07-31 13:21 | HO.NEPHOV_ITS ---
HPI HPI Comments History of Present Illness Details 77-year-old female with pertinent histor y of CAD, [id number] diabetes mellitus, essential hypertension, tobacco use disorder, CKD stage 3, gastroesophageal reflux disease who had hospitalizations last year for acute infected left great toe ulcer with acute osteomyelitis as well as for generalized weakness and loose stools. She has been feeling better since hospital discharge. Her blood sugar control is fair and her blood pressure has been at goal. She denies chest pain, shortness of breath, paroxysmal nocturnal dyspnea, orthopnea, pedal edema, hematuria, urinary symptoms, fever, joint pains, photosensitivity, skin rashes, orthostatic symptoms. She claims to be compliant with her medication. She has tolerating a Farxiga as well as JOSE inhibitor. She is known to have proteinuria. She is known to have coronary artery disease, carotid stenosis as well as peripheral arterial disease needing intervention. Her serum creatinine recently has been found to be 1.66 [facility] Medical History (Updated 08/18/23 @ 20:17 by Trent Sam MD) CKD (chronic kidney disease) stage 3, GFR 30-59 ml/min PAD (peripheral artery disease) Diabetic ketoacidosis Major depressive disorder, recurrent, moderate Adjustment disorder CAD (coronary artery disease) GERD (gastroesophageal reflux disease) HTN (hypertension) Carotid artery occlusion Diabetes Hiatal hernia GERD (gastroesophageal reflux disease) Surgical History History of esophagogastroduodenoscopy (EGD) Family History Father No problems noted. Mother No problems noted. Social History Household Members: None Housing: Apartment Do you presently have visiting nurse or other home services: No Alcohol intake: never Patient Tobacco Use Status: Current someday Tobacco user Tobacco use type: Cigarette Cigarette Packs Per Day: 0.5 Cigarettes Per Day: 10.0 Substance Use Type: Marijuana Advance Directives Date on File: 01/14/23 service: No Current occupational status: retired Vital Signs 07/31/23 13:22 Height 5 ft 2 in Weight 121 lb 4 oz BMI 22.2 BP 128/60 Blood Pressure Location Lt brachial Position Sitting Pulse 71 Pulse Source Pulse Oximeter Physical Exam Vital Signs: Last Vital Signs Pulse 71 07/31/23 13:22 BP 128/60 07/31/23 13:22 BMI result Body Mass Index 22.2 Const General: comfortable and no acute distress Orientation/consciousness: patient oriented x3 HEENT Head: Yes normocephalic Mouth: Normal oral and palatal mucosa present Eyes EOM: EOMs intact bilaterally Neck Neck: Yes supple Resp Auscultation: clear to auscultation bilaterally Cardio Jugular venous distension: no JVD Rate: regular rate GI Palpation (GI): Soft to palpation Auscultation: normal bowel sounds General: Yes no CVA tenderness Back/Spine/Pelvis Back: no CVA tenderness Skin General skin exam: no rashes or lesions noted Neuro General: patient oriented x3 and moves all extremities Extrem General: Yes no pedal edema Assessment & Plan Assessment & Plan (1) PAD (peripheral artery disease): Comment: 01/15/2023 left SFA atherectomy and plasty, left external iliac plasty and stent Code(s): I73.9 - Peripheral vascular disease, unspecified (2) HTN (hypertension): Code(s): I10 - Essential (primary) hypertension Qualifiers: Hypertension type: renovascular hypertension Qualified Code(s): I15.0 - Renovascular hypertension (3) CKD (chronic kidney disease) stage 3, GFR 30-59 ml/min: Code(s): N18.30 - Chronic kidney disease, stage 3 unspecified Qualifiers: Chronic kidney disease stage 3 subtype: stage 3a (GFR 45-59) Qualified Code(s): N18.31 - Chronic kidney disease, stage 3a Robin Wolfe is known to have 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 She likely has renovascular disease as well given she has coronary artery disease, carotid disease as well as peripheral arterial disease needing intervention. She is on JOSE-inhibitor. She is on Farxiga as well. She is known to have proteinuria. She does not take excessive nonsteroidal anti-inflammatories and try to maintain good hydration. I have ordered Doppler of her renal arteries along with extensive workup. I did not make any medication changes. I may back off on her JOSE inhibitor if her serum creatinine rises further. She ideally need a renal biopsy but could be challenging given she is on aspirin and Plavix(it may be too risky to stop given the extent of her vascular disease). All these were discussed in detail. I answered all her questions. Follow-up given Orders: Orders US renal BI 07/31/23 I73.9 - Peripheral vascular disease, unspecified, I10 - Essential (primary) hypertension, N18.30 - Chronic kidney disease, stage 3 unspecified Blood Urea Nitrogen 07/31/23 N18.30 - Chronic kidney disease, stage 3 unspecified, I73.9 - Peripheral vascular disease, unspecified, I10 - Essential (primary) hypertension Phosphorus 07/31/23 N18.30 - Chronic kidney disease, stage 3 unspecified, I73.9 - Peripheral vascular disease, unspecified, I10 - Essential (primary) hypertension Neutrophil Cytoplasma Ab 07/31/23 N18.30 - Chronic kidney disease, stage 3 unspecified, I73.9 - Peripheral vascular disease, unspecified, I10 - Essential (primary) hypertension Myeloperoxidase Antibody 07/31/23 N18.30 - Chronic kidney disease, stage 3 un specified, I73.9 - Peripheral vascular disease, unspecified, I10 - Essential (primary) hypertension Anti Glomerular Basement Memb 07/31/23 N18.30 - Chronic kidney disease, stage 3 unspecified, I73.9 - Peripheral vascular disease, unspecified, I10 - Essential (primary) hypertension Phospholipase A2 Receptor Pnl 07/31/23 N18.30 - Chronic kidney disease, stage 3 unspecified, I73.9 - Peripheral vascular disease, unspecified, I10 - Essential (primary) hypertension US renal doppler 07/31/23 N18.30 - Chronic kidney disease, stage 3 unspecified, I73.9 - Peripheral vascular disease, unspecified, I10 - Essential (primary) hypertension Parathyroid Hormone Intact 07/31/23 N18.30 - Chronic kidney disease, stage 3 unspecified, I73.9 - Peripheral vascular disease, unspecified, I10 - Essential (primary) hypertension Calcium 07/31/23 N18.30 - Chronic kidney disease, stage 3 unspecified, I73.9 - Peripheral vascular disease, unspecified, I10 - Essential (primary) hypertension Electrolytes 07/31/23 N18.30 - Chronic kidney disease, stage 3 unspecified, I73.9 - Peripheral vascular disease, unspecified, I10 - Essential (primary) hypertension Creatinine 07/31/23 N18.30 - Chronic kidney disease, stage 3 unspecified, I73.9 - Peripheral vascular disease, unspecified, I10 - Essential (primary) hypertension Vitamin D 25-OH Total 07/31/23 N18.30 - Chronic kidney disease, stage 3 unspecified, I73.9 - Peripheral vascular disease, unspecified, I10 - Essential (primary) hypertension Complete Blood Count Auto Diff 07/31/23 N18.30 - Chronic kidney disease, stage 3 unspecified, I73.9 - Peripheral vascular disease, unspecified, I10 - Essential (primary) hypertension Anti DNA DS Antibody 07/31/23 N18.30 - Chronic kidney disease, stage 3 un specified, I73.9 - Peripheral vascular disease, unspecified, I10 - Essential (primary) hypertension Proteinase 3 PR3 Antibodies 07/31/23 N18.30 - Chronic kidney disease, stage 3 unspecified, I73.9 - Peripheral vascular disease, unspecified, I10 - Essential (primary) hypertension Immunofixation Pnl, Serum 07/31/23 N18.30 - Chronic kidney disease, stage 3 unspecified, I73.9 - Peripheral vascular disease, unspecified, I10 - Essential (primary) hypertension Complement C4 07/31/23 N18.30 - Chronic kidney disease, stage 3 unspecified, I73.9 - Peripheral vascular disease, unspecified, I10 - Essential (primary) hypertension Complement C3 07/31/23 N18.30 - Chronic kidney disease, stage 3 unspecified, I73.9 - Peripheral vascular disease, unspecified, I10 - Essential (primary) hypertension Hepatitis B Surface Antibody 07/31/23 N18.30 - Chronic kidney disease, stage 3 unspecified, I73.9 - Peripheral vascular disease, unspecified, I10 - Essential (primary) hypertension Hepatitis B Surface Antigen 07/31/23 N18.30 - Chronic kidney disease, stage 3 unspecified, I73.9 - Peripheral vascular disease, unspecified, I10 - Essential (primary) hypertension Hepatitis B Core Antibody 07/31/23 N18.30 - Chronic kidney disease, stage 3 unspecified, I73.9 - Peripheral vascular disease, unspecified, I10 - Essential (primary) hypertension Hemoglobin A1c 07/31/23 N18.30 - Chronic kidney disease, stage 3 unspecified, I73.9 - Peripheral vascular disease, unspecified, I10 - Essential (primary) hypertension Protein Creatinine Ratio, Ur 07/31/23 N18.30 - Chronic kidney disease, stage 3 unspecified, I73.9 - Peripheral vascular disease, unspecified, I10 - Essential (primary) hypertension Coding Level of Care Code New Pt Level 4 (03558) Diagnoses PAD (peripheral artery disease) I73.9 Renovascular hypertension I15.0 Hypertension type: renovascular hypertension Stage 3a chronic kidney disease N18.31 Chronic kidney disease stage 3 subtype: stage 3a (GFR 45-59) Results Reviewed Nephrology Results: Hgb 9.0 g/dl (12.0-16.0) L 03/02/23 WBC 6.3 X10*3/uL (4.8-10.8) 03/02/23 Plt Count 296 X10*3/uL (160-400) 03/02/23 Sodium 134 mmol/L (135-145) L 07/09/23 Potassium 4.4 mmol/L (3.3-5.1) 07/09/23 Chloride 98 mmol/L (96-108) 07/09/23 Carbon Dioxide 25 mmol/L (22-29) 07/09/23 BUN 22 mg/dL (9-16) H 07/09/23 Creatinine 1.66 mg/dL (0.5-1.4) H 07/09/23 Calcium 9.8 mg/dL (8.4-10.2) 07/09/23
[2023-07-31 13:22] VITALS: BP 128/60; PULSE 71; BMI 22.2
== END 2023-07-31 13:53 | disposition home or self-care (01) ==
PROVIDERS: PCP Internal Medicine; Visit Provider Internal Medicine Nephrology
DX: I73.9 Peripheral vascular disease, unspecified (principal); I15.0 Renovascular hypertension; N18.31 Chronic kidney disease, stage 3a
CPT/HCPCS: 99204

== ENCOUNTER 2023-08-27 10:50 | Outpatient (REF) | payer MEDICARE, MEDICAID, SELFPAY ==
[2023-08-27 14:29] LABS: MANUAL DIFF FLAG NO
[2023-08-27 14:32] LABS: Basophils Absolute Auto 0.1 X10*3/uL (0.0-0.2); Basophils Percent Auto 0.8 % (0-2); Eosinophils Absolute Auto 0.4 X10*3/uL (0.0-0.4); Eosinophils Percent Auto 4.1 % (0-4); Hematocrit 36.9 % (37.0-47.0); Hemoglobin 11.8 g/dl (12.0-16.0); Imm Gran Abs Auto 0.04 X10*3/uL (0.00-0.03); Imm Gran Pct Auto 0.5 % (0.0-0.4); Lymphocytes Absolute Auto 1.7 X10*3/uL (1.2-4.9); Lymphocytes Percent Auto 20.4 % (20-40); Mean Corpuscular Hemoglobin 28.9 pg (27.0-33.0); Mean Corpuscular Volume 90.2 fL (80.0-98.0); Mean Platelet Volume 10.5 fL (9.4-12.3); Monocytes Absolute Auto 0.8 X10*3/uL (0.1-1.2); Monocytes Percent Auto 9.6 % (2-11); Neutrophils Absolute Auto 5.5 x10*3/uL (2.0-8.3); Neutrophils Percent Auto 64.6 % (45-73); Platelet Count 306 X10*3/uL (160-400); Red Blood Count 4.09 X10*6/uL (4.20-5.50); Red Cell Distribution Width 16.3 % (11.0-16.0); White Blood Count 8.6 X10*3/uL (4.8-10.8)
[2023-08-27 14:49] LABS: Anion Gap 15 (12-20); Blood Urea Nitrogen 24 mg/dL (9-16); Calcium 9.5 mg/dL (8.4-10.2); Carbon Dioxide 26 mmol/L (22-29); Chloride 100 mmol/L (96-108); Estimated Glomerular Filt Rate 35; Phosphorus 3.5 mg/dL (2.7-4.5); Potassium 4.5 mmol/L (3.3-5.1); Sodium 136 mmol/L (135-145)
[2023-08-27 14:52] LABS: Parathyroid Hormone Intact 107.3 pg/mL (8.7-77.1)
[2023-08-27 15:06] LABS: Creatinine Urine 26.87 mg/dL; Protein/Creatinine Ratio, Ur 7.15 (<0.2); Total Protein Urine Random 192 mg/dL (<12)
[2023-08-27 15:11] LABS: Vitamin D 25-OH Total 43.8 ng/mL (>30)
[2023-08-27 15:13] LABS: Estimated Average Glucose 214 mg/dL; Hemoglobin A1c % 9.1 % (<6.0)
[2023-08-28 08:03] LABS: HBS Num1 0.55 mIU/mL (0-7.99); HBc Num1 0.09 S/CO (0.00-0.79); HBsAGNum1 0.38 S/CO (0.00-0.99); Hepatitis B Core Antibody Nonreactive (Nonreactive); Hepatitis B Surface Antigen Negative (Negative); ~Hepatitis B Surface Antibody NONREACTIVE (Nonreactive)
[2023-08-28 12:29] LABS: Anti DNA DS Antibody <1 IU/mL; Anti Glomerular Basement Memb <1.0 AI; Myeloperoxidase Antibody <1.0 AI; Proteinase 3 PR3 Antibodies <1.0 AI
[2023-08-28 18:13] LABS: Complement C3 182 mg/dL (83-193)
[2023-08-31 13:38] LABS: IgA 195 mg/dL (70-320); IgG 1124 mg/dL (600-1540); IgM 137 mg/dL (50-300)
[2023-09-01 09:58] LABS: Neutrophil Cyto Ab Screen NEGATIVE (NEGATIVE)
[2023-09-06 00:14] LABS: Phospholipase A2 IgG ELISA <4 RU/mL; Phospholipase A2 IgG IFA NEGATIVE (NEGATIVE)
== END 2023-08-27 10:51 | disposition home or self-care (01) ==
LOC: HO.CHCLDS 10:50
PROVIDERS: Visit Provider Internal Medicine Nephrology
DX: I12.9 Hypertensive chronic kidney disease with stage 1 through stage 4 chronic kidney disease, or unspecified chronic kidney disease (principal); N18.30 Chronic kidney disease, stage 3 unspecified; I73.9 Peripheral vascular disease, unspecified
CPT/HCPCS: 36415; 80051; 82306; 82310; 82565; 82570; 82784; 83036; 83520; 83970; 84100; 84156; 84520; 85025; 86021; 86036; 86160; 86225; 86255; 86334; 86704; 86706; 87340

== ENCOUNTER 2023-08-28 08:04 | Outpatient (REF) | payer MEDICARE, MEDICAID, SELFPAY ==
--- NOTE | ~2023-08-28 | US_ITS ---
EXAMINATION: US RETROPERITONEAL LIMITED (RENAL ONLY) CLINICAL INFORMATION: Peripheral vascular disease.. COMPARISON: None available. TECHNIQUE: CKG and hypertension. FINDINGS: RIGHT KIDNEY: 9.5 x 4.1 x 4.1 cm (SAG x AP x TRV). The kidney is normal in size, contour, and echogenicity. Renal cortical thickness is normal. No calculi or focal parenchymal lesions. No hydronephrosis. LEFT KIDNEY: 8.3 x 4.0 x 3.3 cm (SAG x AP x TRV). The kidney is normal in size, contour, and echogenicity. Renal cortical thickness is normal. No calculi visualized. There are 2 anechoic cysts measuring 1.2 x 1.0 x 1.1 cm and 1.2 x 1.0 x 1.1 cm in midpole. No hydronephrosis. On renal Doppler imaging: Right kidney: The renal artery velocity proximal segment is not visualized. The mid segment measures 258 cm/second, distal segment measures 156 cm/second. The renal aortic ratio is 4.6, elevated. Resistive index average is 0.8. Left kidney: Proximal renal artery velocity measures 94.6, midsegment measures 87.7, distal segment measures 49.9 cm. Renal aortic ratio measures 1.7. Resistive index averages 0.81. The mid aorta velocity measures 55.2 cm/second. US/US renal doppler IMPRESSION: 2 left renal cyst. No radiopaque renal calculi or hydronephrosis seen. Elevated right renal aortic velocities, resistive index and RAR suspicious for renal artery stenosis. There is no suspicion for left renal artery stenosis at this time.
--- NOTE | ~2023-08-28 | US_ITS ---
EXAMINATION: US RETROPERITONEAL LIMITED (RENAL ONLY) CLINICAL INFORMATION: Peripheral vascular disease.. COMPARISON: None available. TECHNIQUE: CKG and hypertension. FINDINGS: RIGHT KIDNEY: 9.5 x 4.1 x 4.1 cm (SAG x AP x TRV). The kidney is normal in size, contour, and echogenicity. Renal cortical thickness is normal. No calculi or focal parenchymal lesions. No hydronephrosis. LEFT KIDNEY: 8.3 x 4.0 x 3.3 cm (SAG x AP x TRV). The kidney is normal in size, contour, and echogenicity. Renal cortical thickness is normal. No calculi visualized. There are 2 anechoic cysts measuring 1.2 x 1.0 x 1.1 cm and 1.2 x 1.0 x 1.1 cm in midpole. No hydronephrosis. On renal Doppler imaging: Right kidney: The renal artery velocity proximal segment is not visualized. The mid segment measures 258 cm/second, distal segment measures 156 cm/second. The renal aortic ratio is 4.6, elevated. Resistive index average is 0.8. Left kidney: Proximal renal artery velocity measures 94.6, midsegment measures 87.7, distal segment measures 49.9 cm. Renal aortic ratio measures 1.7. Resistive index averages 0.81. The mid aorta velocity measures 55.2 cm/second. US/US renal BI IMPRESSION: 2 left renal cyst. No radiopaque renal calculi or hydronephrosis seen. Elevated right renal aortic velocities, resistive index and RAR suspicious for renal artery stenosis. There is no suspicion for left renal artery stenosis at this time.
== END 2023-08-28 08:05 | disposition home or self-care (01) ==
LOC: HO.US 08:04
PROVIDERS: PCP Internal Medicine; Visit Provider Internal Medicine Nephrology
DX: I73.9 Peripheral vascular disease, unspecified (principal); I12.9 Hypertensive chronic kidney disease with stage 1 through stage 4 chronic kidney disease, or unspecified chronic kidney disease; N18.30 Chronic kidney disease, stage 3 unspecified
CPT/HCPCS: 76775; 93975

== ENCOUNTER 2023-09-02 12:04 | Outpatient (AMB) | payer MEDICARE, MEDICAID, SELFPAY ==
[2023-09-02 12:06] VITALS: BP 128/62; PULSE 71; O2SAT 96; BMI 22.1
--- NOTE | 2023-09-02 12:06 | HO.NEPHOV_ITS ---
HPI HPI Comments History of Present Illness Details 77-year-old fema jayro with pertinent history of CAD, no b-renxvda-gkjkafne t diabetes mellitu s, essential hyper tension, tobacco u se disorder, CKD s tage 3, gastroesop hageal reflux dise ase who had hospit alizations last ye ar for acute infec gloria left great to e ulcer with acute osteomyelitis as well as for genera lized weakness and loose stools. Sh e has been feeling better since hosp ital discharge. H er blood sugar con trol is fair and h er blood pressure has been at goal. She denies chest pain, shortness of breath, paroxysma l nocturnal dyspne a, orthopnea, peda l edema, hematuria , urinary symptoms , fever, joint romero ns, photosensitivi ty, skin rashes, o rthostatic symptom s. She claims to be compliant with her medication. S he has tolerating a Farxiga as well as JOSE inhibitor. She is known to h ave proteinuria. She is known to ellison ve coronary artery disease, carotid stenosis as well a s peripheral arter ial disease needin g intervention. H er serum creatinin e recently has bee n found to be 1.4 PFS Medical History (Updated 09/02/23 @ 13:32 by Trent Sam MD) CKD (chronic kidney disease) stage 3, GFR 30-59 ml/min PAD (peripheral artery disease) Diabetic ketoacidosis Major depressive disorder, recurrent, moderate Adjustment disorder CAD (coronary artery disease) GERD (gastroesophageal reflux disease) HTN (hypertension) Carotid artery occlusion Diabetes Hiatal hernia GERD (gastroesophageal reflux disease) Surgical History History of esophagogastroduodenoscopy (EGD) Family History Father No problems noted. Mother No problems noted. Social History Household Members: None Housing: Apartment Do you presently have visiting nurse or other home services: No Alcohol intake: never Patient Tobacco Use Status: Current someday Tobacco user Tobacco use type: Cigarette Cigarette Packs Per Day: 0.5 Cigarettes Per Day: 10.0 Substance Use Type: Marijuana Advance Directives Date on File: 01/14/23 service: No Current occupational status: retired Vital Signs 09/02/23 12:06 Height 5 ft 2 in Weight 121 lb BMI 22.1 BP 128/62 Blood Pressure Location Lt brachial Position Sitting Pulse 71 Pulse Source Pulse Oximeter Pulse Oximetry (%) 96 Oxygen Delivery Method Room Air Physical Exam Vital Signs: Last Vital Signs Pulse 71 09/02/23 12:06 BP 128/62 09/02/23 12:06 Pulse Ox 96 09/02/23 12:06 Oxygen Delivery Method Room Air 09/02/23 12:06 BMI result Body Mass Index 22.1 Const General: comfortable and no acute distress Orientation/consciousness: patient oriented x3 HEENT Head: Yes normocephalic Mouth: Normal oral and palatal mucosa present Eyes EOM: EOMs intact bilaterally Neck Neck: Yes supple Resp Auscultation: clear to auscultation bilaterally Cardio Jugular venous distension: no JVD Rate: regular rate GI Palpation (GI): Soft to palpation Auscultation: normal bowel sounds General: Yes no CVA tenderness Back/Spine/Pelvis Back: no CVA tenderness Skin General skin exam: no rashes or lesions noted Neuro General: patient oriented x3 and moves all extremities Extrem General: Yes no pedal edema Assessment & Plan Assessment & Plan (1) CKD (chronic kidney disease) stage 3, GFR 30-59 ml/min: Code(s): N18.30 - Chronic kidney disease, stage 3 unspecified Qualifiers: Chronic kidney disease stage 3 subtype: stage 3a (GFR 45-59) Qualified Code(s): N18.31 - Chronic kidney disease, stage 3a (2) HTN (hypertension): Code(s): I10 - Essential (primary) hypertension Qualifiers: Hypertension type: renovascular hypertension Qualified Code(s): I15.0 - Renovascular hypertension (3) Renal cyst: Code(s): N28.1 - Cyst of kidney, acquired (4) Renal artery stenosis, [place]: Code(s): I70.1 - Atherosclerosis of renal artery Robin Wolfe is known to have chronic kidney disease stage 3 due to diabetic hy pertensive renal disease. She likely has renovascular disease as well given she has coronary artery disease, carotid disease as well as peripheral arterial disease needing intervention. She is on JOSE-inhibitor. She is on Farxiga as well. She does not take excessive nonsteroidal anti-inflammatories and try to maintain good hydration. Her renal USS showed 2 left renal cysts. She had elevated right renal aortic velocities, resistive index and RAR suspicious for right renal artery stenosis. I did not make any medication changes. I may back off on her JOSE inhibitor if her serum creatinine rises further. She ideally need a renal biopsy but could be challenging given she is on aspirin and Plavix(it may be too risky to stop given the extent of her vascular disease). All these were discussed in detail. I answered all her questions. Follow-up given Orders: Orders Creatinine 3 Months N18.30 - Chronic kidney disease, stage 3 unspecified Blood Urea Nitrogen 3 Months N18.30 - Chronic kidney disease, stage 3 unspecified Electrolytes 3 Months N18.30 - Chronic kidney disease, stage 3 unspecified Coding Level of Care Code Est Pt Level 4 (76489) Diagnoses Stage 3a chronic kidney disease N18.31 Chronic kidney disease stage 3 subtype: stage 3a (GFR 45-59) Renovascular hypertension I15.0 Hypertension type: renovascular hypertension Renal cyst N28.1 Renal artery stenosis, [place] I70.1 Results Reviewed Nephrology Results: Hgb 11.8 g/dl (12.0-16.0) L 08/27/23 WBC 8.6 X10*3/uL (4.8-10.8) 08/27/23 Plt Count 306 X10*3/uL (160-400) 08/27/23 Sodium 136 mmol/L (135-145) 08/27/23 Potassium 4.5 mmol/L (3.3-5.1) 08/27/23 Chloride 100 mmol/L (96-108) 08/27/23 Carbon Dioxide 26 mmol/L (22-29) 08/27/23 BUN 24 mg/dL (9-16) H 08/27/23 Creatinine 1.47 mg/dL (0.5-1.4) H 08/27/23 Calcium 9.5 mg/dL (8.4-10.2) 08/27/23 Phosphorus 3.5 mg/dL (2.7-4.5) 08/27/23 PTH Intact 107.3 pg/mL (8.7-77.1) H 08/27/23 Urine Creatinine 26.87 mg/dL 08/27/23 Protein/Creatinin Ratio 7.15 (<0.2) H 08/27/23 Renal US 08/28/23
== END 2023-09-02 12:45 | disposition home or self-care (01) ==
PROVIDERS: PCP Internal Medicine; Visit Provider Internal Medicine Nephrology
DX: N18.31 Chronic kidney disease, stage 3a (principal); I15.0 Renovascular hypertension; N28.1 Cyst of kidney, acquired; I70.1 Atherosclerosis of renal artery
CPT/HCPCS: 99214

== ENCOUNTER → 2023-09-02 12:04 | Outpatient (BNVA) | payer MEDICARE, MEDICAID, SELFPAY | PROVIDERS: PCP Internal Medicine; Visit Provider Internal Medicine Nephrology | DX: I15.0 Renovascular hypertension (principal); N18.31 Chronic kidney disease, stage 3a; I70.1 Atherosclerosis of renal artery; N28.1 Cyst of kidney, acquired | CPT/HCPCS: 99212 ==

== ENCOUNTER 2023-11-25 11:11 | Outpatient (AMB) | payer MEDICARE, MEDICAID, SELFPAY ==
[2023-11-25 11:15] VITALS: BP 122/60; PULSE 65; O2SAT 97; BMI 22.4
--- NOTE | 2023-11-25 11:15 | HO.NEPHOV ---
Vital Signs 11/25/23 11:15 Height 5 ft 2 in Weight 122 lb 8 oz BMI 22.4 BP 122/60 Blood Pressure Location Lt brachial Position Sitting Pulse 65 Pulse Source Pulse Oximeter Pulse Oximetry (%) 97 Oxygen Delivery Method Room Air Intake Visit Reasons: 3 mo fu w/ labs - CKD/ Confirmed Supervisor Covering And Lining Required: No Accompanied by: Self / Same As Patient Allergies silver [From [facility]ER[facility]] Allergy (Unknown, Verified 11/25/23 11:16) SKIN TEARS TAPE,PAPER Allergy (Mild, Uncoded 04/23/23 13:05) Itching HPI Comments Details: 77-year-old female with pertinent history of CAD, aoa-gpotzix-cyarlvqsd diabetes mellitus, essential hypertension, tobacco use disorder, CKD stage 3, gastroesophageal reflux disease who had hospitalizations last year for acute infected left great toe ulcer with acute osteomyelitis as well as for generalized weakness and loose stools. Her blood sugar control is fair and her blood pressure has been at goal. She denies chest pain, shortness of breath, paroxysmal nocturnal dyspnea, orthopnea, pedal edema, hematuria, urinary symptoms, fever, joint pains, photosensitivity, skin rashes, orthostatic symptoms. She claims to be compliant with her medication. She has tolerating a Farxiga as well as JOSE inhibitor. She is known to have proteinuria. She is known to have coronary artery disease, carotid stenosis as well as peripheral arterial disease needing intervention. Her serum creatinine recently has been found to be 1.47 [facility] Medical History (Updated 09/02/23 @ 13:32 by Trent Sam MD) CKD (chronic kidney disease) stage 3, GFR 30-59 ml/min PAD (peripheral artery disease) Diabetic ketoacidosis Major depressive disorder, recurrent, moderate Adjustment disorder CAD (coronary artery disease) GERD (gastroesophageal reflux disease) HTN (hypertension) Carotid artery occlusion Diabetes Hiatal hernia GERD (gastroesophageal reflux disease) Surgical History History of esophagogastroduodenoscopy (EGD) Family History Father No problems noted. Mother No problems noted. Social History Household Members: None Housing: Apartment Do you presently have visiting nurse or other home services: No Alcohol intake: never Patient Tobacco Use Status: Current someday Tobacco user Tobacco use type: Cigarette Cigarette Packs Per Day: 0.5 Cigarettes Per Day: 10.0 Substance Use Type: Marijuana Advance Directives Date on File: 01/14/23 service: No Current occupational status: retired Physical Exam Vital Signs: Last Vital Signs Pulse 65 11/25/23 11:15 BP 122/60 11/25/23 11:15 Pulse Ox 97 11/25/23 11:15 Oxygen Delivery Method Room Air 11/25/23 11:15 BMI result Body Mass Index 22.4 Const General: comfortable and no acute distress Orientation/consciousness: patient oriented x3 HEENT Head: Yes normocephalic Mouth: Normal oral and palatal mucosa present Eyes EOM: EOMs intact bilaterally Neck Neck: Yes supple Resp Auscultation: clear to auscultation bilaterally Cardio Jugular venous distension: no JVD Rate: regular rate GI Palpation (GI): Soft to palpation Auscultation: normal bowel sounds General: Yes no CVA tenderness Back/Spine/Pelvis Back: no CVA tenderness Skin General skin exam: no rashes or lesions noted Neuro General: patient oriented x3 and moves all extremities Extrem General: Yes no pedal edema Results Reviewed Nephrology Results: Hgb 11.8 g/dl (12.0-16.0) L 08/27/23 WBC 8.6 X10*3/uL (4.8-10.8) 08/27/23 Plt Count 306 X10*3/uL (160-400) 08/27/23 Sodium 136 mmol/L (135-145) 08/27/23 Potassium 4.5 mmol/L (3.3-5.1) 08/27/23 Chloride 100 mmol/L (96-108) 08/27/23 Carbon Dioxide 26 mmol/L (22-29) 08/27/23 BUN 24 mg/dL (9-16) H 08/27/23 Creatinine 1.47 mg/dL (0.5-1.4) H 08/27/23 Calcium 9.5 mg/dL (8.4-10.2) 08/27/23 Phosphorus 3.5 mg/dL (2.7-4.5) 08/27/23 PTH Intact 107.3 pg/mL (8.7-77.1) H 08/27/23 Urine Creatinine 26.87 mg/dL 08/27/23 Protein/Creatinin Ratio 7.15 (<0.2) H 08/27/23 Renal US 08/28/23 Assessment & Plan Assessment & Plan (1) Renal artery stenosis, [place]: Code(s): I70.1 - Atherosclerosis of renal artery Category: Medical (2) Renal cyst: Code(s): N28.1 - Cyst of kidney, acquired Category: Medical (3) CKD (chronic kidney disease) stage 3, GFR 30-59 ml/min: Code(s): N18.30 - Chronic kidney disease, stage 3 unspecified Category: Medical Qualifiers: Chronic kidney disease stage 3 subtype: stage 3a (GFR 45-59) Qualified Code(s): N18.31 - Chronic kidney disease, stage 3a (4) HTN (hypertension): Code(s): I10 - Essential (primary) hypertension Category: Medical Qualifiers: Hypertension type: renovascular hypertension Qualified Code(s): I15.0 - Renovascular hypertension Plan Yaneth is known to have 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 She has renovascular disease as well given she has coronary artery disease, carotid disease as well as peripheral arterial disease needing intervention. She is on JOSE-inhibitor. She is on Farxiga as well. She is known to have proteinuria. She does not take excessive nonsteroidal anti-inflammatories and try to maintain good hydration. Doppler of her renal arteries showed right EFRAIN and 2 left renal cysts. I did not make any medication changes. I may back off on her JOSE inhibitor if her serum creatinine rises further. She ideally need a renal biopsy but could be challenging given she is on aspirin and Plavix(it may be too risky to stop given the extent of her vascular disease). All these were discussed in detail. I answered all her questions. Follow-up given Orders: Orders Blood Urea Nitrogen Today I15.0 - Renovascular hypertension, I70.1 - Atherosclerosis of renal artery, N18.31 - Chronic kidney disease, stage 3a, N28.1 - Cyst of kidney, acquired Creatinine Today I15.0 - Renovascular hypertension, I70.1 - Atherosclerosis of renal artery, N18.31 - Chronic kidney disease, stage 3a, N28.1 - Cyst of kidney, acquired Electrolytes Today I15.0 - Renovascular hypertension, I70.1 - Atherosclerosis of renal artery, N18.31 - Chronic kidney disease, stage 3a, N28.1 - Cyst of kidney, acquired Coding Level of Care Code Est Pt Level 4 (83104) Diagnoses Renal artery stenosis, [place] I70.1 Renal cyst N28.1 Stage 3a chronic kidney disease N18.31 Chronic kidney disease stage 3 subtype: stage 3a (GFR 45-59) Renovascular hypertension I15.0 Hypertension type: renovascular hypertension
== END 2023-11-25 11:30 | disposition home or self-care (01) ==
PROVIDERS: PCP Internal Medicine; Visit Provider Internal Medicine Nephrology
DX: I70.1 Atherosclerosis of renal artery (principal); N28.1 Cyst of kidney, acquired; N18.31 Chronic kidney disease, stage 3a; I15.0 Renovascular hypertension
CPT/HCPCS: 99214

== ENCOUNTER → 2023-11-25 11:11 | Outpatient (BNVA) | payer MEDICARE, MEDICAID, SELFPAY | PROVIDERS: PCP Internal Medicine; Visit Provider Internal Medicine Nephrology | DX: I70.1 Atherosclerosis of renal artery (principal); I15.0 Renovascular hypertension; N18.31 Chronic kidney disease, stage 3a; N28.1 Cyst of kidney, acquired | CPT/HCPCS: 99212 ==

== ENCOUNTER 2024-03-11 13:46 | Outpatient (REF) | payer MEDICARE, MEDICAID, SELFPAY ==
[2024-03-11 17:46] LABS: Anion Gap 18 (12-20); Blood Urea Nitrogen 19 mg/dL (9-16); Carbon Dioxide 22 mmol/L (22-29); Chloride 99 mmol/L (96-108); Estimated Glomerular Filt Rate 28; Potassium 4.4 mmol/L (3.3-5.1); Sodium 135 mmol/L (135-145)
== END 2024-03-11 13:47 | disposition home or self-care (01) ==
LOC: HO.CHCLDS 13:46
PROVIDERS: Visit Provider Internal Medicine Nephrology
DX: N18.30 Chronic kidney disease, stage 3 unspecified (principal)
CPT/HCPCS: 36415; 80051; 82565; 84520

== ENCOUNTER 2024-04-16 05:53 | Inpatient (IN) | payer MEDICARE, MEDICAID, SELFPAY ==
[2024-04-16] VITALS (10 sets, daily range): BP systolic 138–199; BP diastolic 60–91; PULSE 78–98; RESP 15–20; TEMP 36.1–36.9; O2SAT 93–97; BMI 23.5; BMI 21.5
--- NOTE | ~2024-04-16 | XR_ITS ---
EXAMINATION: XR CHEST CLINICAL INFORMATION: Hallucinations. COMPARISON: January 24, 2023. TECHNIQUE: Portable AP view of the chest was obtained. FINDINGS: No significant abnormality is noted involving the heart, lungs, mediastinum, or soft tissues. Mildly atherosclerotic aorta. Mild degenerative changes of the shoulders. XR/XR chest 1V IMPRESSION: No acute finding. Electronically signed by: Yohannes Ambrosio MD 04/16/2024 08:12 AM EDT RP
--- NOTE | ~2024-04-16 | CT_ITS ---
EXAMINATION: CT HEAD WITHOUT CONTRAST CLINICAL INFORMATION: Hallucinations status post head trauma. COMPARISON: December 27, 2021 and February 05, 2021. TECHNIQUE: Contiguous axial imaging was performed from the skull base to vertex without intravenous administration of contrast. This CT examination was performed using dose optimization techniques as appropriate, variously including the following: *Automated exposure control *Adjustment of mA and/or kV according to patient size (this includes techniques or standardized protocols for targeted exams where dose is matched to indication/reason for exam; i.e. extremities or head) *Use of iterative reconstruction technique DLP: 537 mGy-cm FINDINGS: No intracranial hemorrhage, large acute infarction, or mass lesion is seen. 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 Mild diffuse cortical atrophy and chronic bilateral periventricular white matter ischemic change.. No extra-axial collection is appreciated. The ventricles are normal in size and configuration without evidence of hydrocephalus. The visualized paranasal sinuses and mastoid air cells are clear. CT/CT head/brain wo IV con IMPRESSION: No acute intracranial finding. Electronically signed by: Yohannes Ambrosio MD 04/16/2024 08:26 AM EDT
--- NOTE | 2024-04-16 06:51 | ECG_ITS ---
Test Reason : SYNCOPE Blood Pressure : / mmHG Vent. Rate : 087 BPM Atrial Rate : 087 BPM P-R Int : 206 ms QRS Dur : 158 ms QT Int : 420 ms P-R-T Axes : 070 -18 114 degrees QTc Int : 505 ms Normal sinus rhythm Left bundle branch block Abnormal ECG When compared with ECG of 24-JAN-2023 16:17, No significant change was found Referred By: Heidy Cook Electronically Signed By:URI VENTURA MD
--- NOTE | 2024-04-16 07:14 | ED_ITS ---
HPI - General Adult General Chief complaint: General Medical Stated complaint: HALLUCINATIONS Time Seen by Provider: 04/16/24 06:34 Source: patient, EMS, RN notes reviewed and old records reviewed Mode of arrival: EMS History of Present Illness ED Provider: Heidy Cook PA-C HPI narrative: 78-year-old female with a past medical history of CKD, PID, CAD, GERD, HTN, diabetes, presenting to the ED via EMS complaining of auditory and visual hallucinations x3 months, since February s/p fall with head trauma. Patient states she fell in February with + LOC, was not evaluated after incident. States she has sees people in her house as well as children and animals including cats. State figures walk through [place] & were in her shower when she wanted to shower, and left their children under her watch without asking. States she is afraid of her hallucinations, & realizes they are not real. Also admits to hearing voices like her children in her home however they are not there. Denies more recent head injury, illness including cough, chest pain/shortness of breath, fever, dysuria, SI/HI. Takes baby ASA Related Data Home Medications ?Medication ?Instructions ?Recorded ?Confirmed amlodipine 10 mg tablet 10 mg PO DAILY 05/23/20 01/28/23 atorvastatin 40 mg tablet 40 mg PO BEDTIME 05/23/20 01/28/23 cholecalciferol (vitamin D3) 25 25 mcg PO DAILY 05/23/20 01/28/23 mcg (1,000 unit) capsule lisinopril 40 mg tablet 40 mg PO DAILY 05/23/20 01/28/23 metoprolol tartrate 100 mg tablet 200 mg PO BID 05/23/20 01/28/23 nateglinide 60 mg tablet 60 mg PO TIDAC 05/23/20 01/28/23 omeprazole 40 mg capsule,delayed 40 mg PO DAILY@0630 05/23/20 01/28/23 release sitagliptin phosphate 50 mg tablet 50 mg PO DAILY 05/23/20 01/28/23 (Januvia) budesonide-formoterol HFA 160 1 puff PO BID PRN Shortness Of 12/27/21 01/28/23 mcg-4.5 mcg/actuation aerosol Breath Or Wheezing inhaler (Symbicort) nortriptyline 25 mg capsule 1 - 2 cap PO BEDTIME PRN Back Pain 12/27/21 01/28/23 / foot pain aspirin 81 mg tablet,delayed 81 mg PO DAILY 01/13/23 01/28/23 release albuterol sulfate 90 mcg/actuation 2 puff inhalation QID PRN Wheezing 01/25/23 01/28/23 aerosol inhaler (Ventolin HFA) dapagliflozin propanediol 5 mg 5 mg PO DAILY 07/31/23 tablet (Farxiga) Previous Rx's ?Medication ?Instructions ?Recorded clopidogrel 75 mg tablet (Plavix) 75 mg PO DAILY #90 tabs 04/23/23 Allergies Allergy/AdvReac Type Severity Reaction Status Date / Time silver Allergy Unknown SKIN TEARS Verified 04/16/24 06:09 [From [employer] AG MESH] TAPE,PAPER Allergy Mild Itching Uncoded 04/16/24 06:09 Review of Systems 2 Review of Systems: Yes all other systems are reviewed and are negative Constitutional: Constitutional: Reports as per HPI Neurologic: Denies Abnormal speech present [facility] Past Medical History Attestation statement: The following information was validated with the patient. Source: old records reviewed Medical History CKD (chronic kidney disease) stage 3, GFR 30-59 ml/min PAD (peripheral artery disease) Diabetic ketoacidosis Major depressive disorder, recurrent, moderate Adjustment disorder CAD (coronary artery disease) GERD (gastroesophageal reflux disease) HTN (hypertension) Carotid artery occlusion Diabetes Hiatal hernia GERD (gastroesophageal reflux disease) Surgical History History of esophagogastroduodenoscopy (EGD) Family History Family History Father No problems noted. Mother No problems noted. Social History Social History Household Members: None Housing: Apartment Do you presently have visiting nurse or other home services: No Alcohol intake: never Patient Tobacco Use Status: Current someday Tobacco user Tobacco use type: Cigarette Cigarette Packs Per Day: 0.5 Cigarettes Per Day: 10.0 Smoked in Last 30 Days: Yes Substance Use Type: Marijuana Advance Directives: Yes Advance Directives on File: Yes Advance Directives Date on File: 01/14/23 Do you have a plan to hurt others: No Plan service: No Current occupational status: retired Physical Exam ED Vital Signs: Vital Signs - 24 hr 04/16/24 06:06 04/16/24 06:10 04/16/24 07:45 Temperature 98.5 F 98.5 F 97.9 F Pulse Rate 78 78 88 Respiratory Rate 15 20 18 Blood Pressure 150/69 H 150/69 H 159/71 H Pulse Oximetry 93 93 95 Oxygen Delivery Method Room Air Room Air Room Air BMI result Body Mass Index 23.5 Const General: cooperative, healthy appearing and no acute distress Orientation/consciousness: patient oriented x3 Limitations: no limitations HENMT Head: Yes normal to inspection and Yes atraumatic Ears: hearing grossly normal bilaterally General nose exam: Normal external nose present Face and sinus: Yes normal facial exam Eyes General: appearance normal, both eyes and all related structures Pupils: Equal, round and reactive pupils present EOM: EOMs intact bilaterally Neck Neck: Yes normal visual inspection and Yes no meningeal signs Resp Effort & Inspection: normal respiratory effort and no respiratory distress Auscultation: clear to auscultation bilaterally, no crackles and no wheezes Cardio Rate: regular rate Heart sounds: S1 normal heart sound present and S2 normal heart sound present GI Inspection: Yes normal to inspection Palpation (GI): Soft to palpation, nontender, no guarding and not rigid Skin Rashes: no rashes Wounds: no wounds Neuro General: patient oriented x3, tone normal, moves all extremities, no meningeal signs, no focal motor deficits and CN's II-XI intact bilaterally Cranial nerves: Yes CN's II-XII intact bilaterally and Yes Equal, round and reactive pupils present Cognition (Neuro): normal cognition Speech: No Abnormal speech present Motor exam (neuro): 5/5 motor strength present throughout Extrem General: Yes normal to inspection Psych Attitude: cooperative Thought content: suicidality and no homicidality Insight: Good insight present (Psych) Course Course Course Narrative: *0946--chronic CKD. Glucose 318, no anion gap. Chronically elevated troponin > will obtain 3 hour repeat -UA not infected. Viral studies negative CT head/brain wo IV conIMPRESSION: No acute intracranial finding XR chest 1V IMPRESSION: No acute finding. -tox screen positive for THC. Patient medically cleared for CARE team eval at 09:57. Physician observation initiated > 1041--patient with active hallucinations in the ED. Shouting. Seeing people in her room. Easily redirectable -1210--CARE team evaluated patient and plan is for inpatient Pilar-psych Medications Administered Discontinued Medications Generic Name Dose Route Start Last Admin Trade Name Kar PRN Reason Stop Dose Admin Olanzapine 5 mg 04/16/24 10:59 04/16/24 11:02 Olanzapine 5 Mg Tablet PO 04/16/24 11:00 5 mg ONCE ONE Administration Medical Decision Making Medical Decision Making MDM Narrative: 78-year-old female with a past medical history of CKD, PID, CAD, GERD, HTN, diabetes, presenting to the ED via EMS complaining of auditory and visual hallucinations x3 months, since February s/p fall with head trauma. On exam vital signs stable, NAD, nontoxic appearing, physical exam as noted above, NAD, nontoxic appearing, denies SI/HI. Concern for subacute ICH vs infectious/metabolic etiologies vs psychiatric origin. Plan: EKG, labs, UA, CXR, tox screen, head CT, care team consult Please refer to course for remaining clinical decision making, interpretation of labs/imaging results, and discussions with consultants and/or family members. Differential Diagnosis Differential Diagnoses: The differential diagnosis associated with the presentation includes As above Admission/Observation Consideration of admission/observation: Escalation of care including admission/observation considered Consult Healthcare Provider Management of the patient was discussed with: Behavioral Health Provider Lab Data [facility] Lab Attestation statement: I reviewed the patient's lab results. 04/16/24 07:58 04/16/24 07:58 Labs: Lab Results 04/16/24 04/16/24 04/16/24 Range/Units 07:45 07:58 09:24 WBC 8.0 (4.8-10.8) X10*3/uL RBC 4.43 (4.20-5.50) X10*6/uL Hgb 13.0 (12.0-16.0) g/dl Hct 39.6 (37.0-47.0) % MCV 89.4 (80.0-98.0) fL MCH 29.3 (27.0-33.0) pg MCHC 32.8 (31.0-35.0) g/dl RDW 15.1 (11.0-16.0) % Plt Count 250 (160-400) X10*3/uL MPV 11.0 (9.4-12.3) fL Immature Gran % (Auto) 0.4 (0.0-0.4) % Neut % (Auto) 74.9 H (45-73) % Lymph % (Auto) 15.9 L (20-40) % [place] % (Auto) 7.5 (2-11) % Eos % (Auto) 0.6 (0-4) % Baso % (Auto) 0.7 (0-2) % Lymph # (Auto) 1.3 (1.2-4.9) X10*3/uL [place] # (Auto) 0.6 (0.1-1.2) X10*3/uL Eos # (Auto) 0.1 (0.0-0.4) X10*3/uL Baso # (Auto) 0.1 (0.0-0.2) X10*3/uL Abs Immat Gran (auto) 0.03 (0.00-0.03) X10*3/uL Absolute Neuts (auto) 6.0 (2.0-8.3) x10*3/uL Absolute Nucleated RBC 0.000 (0.0-0.012) X10*3/uL Nucleated RBC % (auto) 0.0 (0.0-0.2) /100WBC PT 9.9 L (10.9-12.4) SEC INR 0.9 (0.9-1.1) Sodium 136 (135-145) mmol/L Potassium 4.4 (3.3-5.1) mmol/L Chloride 101 (96-108) mmol/L Carbon Dioxide 24 (22-29) mmol/L Anion Gap 15 (12-20) BUN 22 H (9-16) mg/dL Creatinine 1.68 H (0.5-1.4) mg/dL Estim Creat Clear Calc 21.4 Estimated GFR 30 POC Glucose (60-115) mg/dL Random Glucose 318 H (60-115) mg/dL Calcium 10.3 H D (8.4-10.2) mg/dL Magnesium 2.1 (1.6-2.6) mg/dL Total Bilirubin 0.3 (0.0-1.0) mg/dL AST 20 (5-31) U/L ALT 13 (0-31) U/L Alkaline Phosphatase 115 (39-117) U/L Troponin I High Sens 22.5 H (<3.5-17.0) ng/L Total Protein 7.6 (6.5-8.0) g/dL Albumin 4.0 (3.5-5.0) g/dL Urine Color Yellow Urine Appearance Clear Urine pH 6.5 (5.0-9.0) Ur Specific [place] 1.015 (1.005-1.025) Urine Protein 300 (3+) H (Neg-Trace) mg/dL Urine Glucose (UA) >=1000 H (Negative) mg/dL Urine Ketones Negative (Negative) mg/dL Urine Blood Negative (Negative) Urine Nitrite Negative (Negative) Ur Leukocyte Esterase Negative (Negative) Urine RBC 0-2 (0-2) /HPF Urine WBC 0-5 (0-5) /HPF Ur Squamous Epith Cells 11-20 (0-2) /HPF Urine Bacteria None Seen (None Seen) Hyaline Casts 0-2 (0-2) /LPF Urine Opiates Screen Not Detected (Not Detect) Ur Buprenorphine Scrn Not Detected (Not Detect) ng/mL Ur Oxycodone Screen Not Detected (Not Detect) ng/mL Urine Methadone Screen Not Detected (Not Detect) ng/mL Urine Fentanyl Screen Not Detected (Not Detect) Ur Barbiturates Screen Not Detected (Not Detect) Ur Phencyclidine Scrn Not Detected (Not Detect) Ur Amphetamines Screen Not Detected (Not Detect) U Benzodiazepines Scrn Not Detected (Not Detect) Urine Cocaine Screen Not Detected (Not Detect) U Marijuana (THC) Screen POSITIVE H (Not Detect) Influenza Type A (PCR) NEGATIVE (Negative) Influenza Type B (PCR) NEGATIVE (Negative) RSV RNA Qual (PCR) NEGATIVE (Negative) SARS-CoV-2 RNA (RT-PCR) NEGATIVE (Negative) 04/16/24 04/16/24 Range/Units 09:50 11:10 WBC (4.8-10.8) X10*3/uL RBC (4.20-5.50) X10*6/uL Hgb (12.0-16.0) g/dl Hct (37.0-47.0) % MCV (80.0-98.0) fL MCH (27.0-33.0) pg MCHC (31.0-35.0) g/dl RDW (11.0-16.0) % Plt Count (160-400) X10*3/uL MPV (9.4-12.3) fL Immature Gran % (Auto) (0.0-0.4) % Neut % (Auto) (45-73) % Lymph % (Auto) (20-40) % [place] % (Auto) (2-11) % Eos % (Auto) (0-4) % Baso % (Auto) (0-2) % Lymph # (Auto) (1.2-4.9) X10*3/uL [place] # (Auto) (0.1-1.2) X10*3/uL Eos # (Auto) (0.0-0.4) X10*3/uL Baso # (Auto) (0.0-0.2) X10*3/uL Abs Immat Gran (auto) (0.00-0.03) X10*3/uL Absolute Neuts (auto) (2.0-8.3) x10*3/uL Absolute Nucleated RBC (0.0-0.012) X10*3/uL Nucleated RBC % (auto) (0.0-0.2) /100WBC PT (10.9-12.4) SEC INR (0.9-1.1) Sodium (135-145) mmol/L Potassium (3.3-5.1) mmol/L Chloride (96-108) mmol/L Carbon Dioxide (22-29) mmol/L Anion Gap (12-20) BUN (9-16) mg/dL Creatinine (0.5-1.4) mg/dL Estim Creat Clear Calc Estimated GFR POC Glucose 246 H (60-115) mg/dL Random Glucose (60-115) mg/dL Calcium (8.4-10.2) mg/dL Magnesium (1.6-2.6) mg/dL Total Bilirubin (0.0-1.0) mg/dL AST (5-31) U/L ALT (0-31) U/L Alkaline Phosphatase (39-117) U/L Troponin I High Sens 19.5 H (<3.5-17.0) ng/L Total Protein (6.5-8.0) g/dL Albumin (3.5-5.0) g/dL Urine Color Urine Appearance Urine pH (5.0-9.0) Ur Specific [place] (1.005-1.025) Urine Protein (Neg-Trace) mg/dL Urine Glucose (UA) (Negative) mg/dL Urine Ketones (Negative) mg/dL Urine Blood (Negative) Urine Nitrite (Negative) Ur Leukocyte Esterase (Negative) Urine RBC (0-2) /HPF Urine WBC (0-5) /HPF Ur Squamous Epith Cells (0-2) /HPF Urine Bacteria (None Seen) Hyaline Casts (0-2) /LPF Urine Opiates Screen (Not Detect) Ur Buprenorphine Scrn (Not Detect) ng/mL Ur Oxycodone Screen (Not Detect) ng/mL Urine Methadone Screen (Not Detect) ng/mL Urine Fentanyl Screen (Not Detect) Ur Barbiturates Screen (Not Detect) Ur Phencyclidine Scrn (Not Detect) Ur Amphetamines Screen (Not Detect) U Benzodiazepines Scrn (Not Detect) Urine Cocaine Screen (Not Detect) U Marijuana (THC) Screen (Not Detect) Influenza Type A (PCR) (Negative) Influenza Type B (PCR) (Negative) RSV RNA Qual (PCR) (Negative) SARS-CoV-2 RNA (RT-PCR) (Negative) Independent Interpretation I performed an independent interpretation of an: EKG, Plain X-Ray and CT Scan Radiology Impression Discussion of test interpretation with radiology: I have reviewed the radiologist's reading. Independent Historian Clinical information obtained from an independent historian. History obtained from or confirmed by: EMS and Other (Daughter) External Record Review External record reviewed: Inpatient record, Office record, Outpatient record, Prior outpatient labs, Prior outpatient radiology, Primary care record and Outside ED record Tests considered The following testing was considered but not selected: As above Chronic Conditions Patient?s care impacted by: Hypertension Discharge Plan Discharge Clinical Impression: Hallucinations Patient Disposition: Still a Patient Prescriptions: No Action nortriptyline 25 mg capsule 1 - 2 cap PO BEDTIME PRN (Reason: Back Pain / foot pain) budesonide-formoterol [Symbicort] 160-4.5 mcg/actuation HFA aerosol inhaler 1 puff PO BID PRN (Reason: Shortness Of Breath Or Wheezing) aspirin 81 mg tablet,delayed release (DR/EC) 81 mg PO DAILY albuterol sulfate [Ventolin HFA] 90 mcg/actuation HFA aerosol inhaler 2 puff INHALATION QID PRN (Reason: Wheezing) atorvastatin 40 mg tablet 40 mg PO BEDTIME cholecalciferol (vitamin D3) 25 mcg (1,000 unit) capsule 25 mcg PO DAILY amlodipine 10 mg tablet 10 mg PO DAILY lisinopril 40 mg tablet 40 mg PO DAILY Januvia 50 mg tablet 50 mg PO DAILY nateglinide 60 mg tablet 60 mg PO TIDAC Rx Instructions: give before meal(s) metoprolol tartrate 100 mg tablet 200 mg PO BID omeprazole 40 mg capsule,delayed release(DR/EC) 40 mg PO DAILY@0630 Farxiga 5 mg tablet 5 mg PO DAILY clopidogrel [Plavix] 75 mg tablet 75 mg PO DAILY Qty: 90 1RF Print Language: Lithuanian
[2024-04-16 08:07] LABS: MANUAL DIFF FLAG NO
[2024-04-16 08:16] LABS: Basophils Absolute Auto 0.1 X10*3/uL (0.0-0.2); Basophils Percent Auto 0.7 % (0-2); Eosinophils Absolute Auto 0.1 X10*3/uL (0.0-0.4); Eosinophils Percent Auto 0.6 % (0-4); Hematocrit 39.6 % (37.0-47.0); Imm Gran Abs Auto 0.03 X10*3/uL (0.00-0.03); Imm Gran Pct Auto 0.4 % (0.0-0.4); Lymphocytes Absolute Auto 1.3 X10*3/uL (1.2-4.9); Lymphocytes Percent Auto 15.9 % (20-40); Mean Corpuscular HGB Conc 32.8 g/dl (31.0-35.0); Mean Corpuscular Hemoglobin 29.3 pg (27.0-33.0); Mean Corpuscular Volume 89.4 fL (80.0-98.0); Monocytes Absolute Auto 0.6 X10*3/uL (0.1-1.2); Monocytes Percent Auto 7.5 % (2-11); Neutrophils Percent Auto 74.9 % (45-73); Platelet Count 250 X10*3/uL (160-400); Red Blood Count 4.43 X10*6/uL (4.20-5.50); Red Cell Distribution Width 15.1 % (11.0-16.0)
[2024-04-16 08:24] LABS: Magnesium 2.1 mg/dL (1.6-2.6)
[2024-04-16 08:28] LABS: Alanine Aminotransferase 13 U/L (0-31); Alkaline Phosphatase 115 U/L (39-117); Anion Gap 15 (12-20); Aspartate Amino Transferase 20 U/L (5-31); Bilirubin Total 0.3 mg/dL (0.0-1.0); Blood Urea Nitrogen 22 mg/dL (9-16); Calcium 10.3 mg/dL (8.4-10.2); Carbon Dioxide 24 mmol/L (22-29); Chloride 101 mmol/L (96-108); Creatinine Clr Calc Pharmacy 21.4; Estimated Glomerular Filt Rate 30; Glucose Random 318 mg/dL (60-115); INTERNATIONAL NORM RATIO 0.9 (0.9-1.1); Potassium 4.4 mmol/L (3.3-5.1); Prothrombin Time 9.9 SEC (10.9-12.4); Sodium 136 mmol/L (135-145); Total Protein 7.6 g/dL (6.5-8.0)
[2024-04-16 08:33] LABS: Troponin-I High Sensitivity 22.5 ng/L (<3.5-17.0)
[2024-04-16 08:50] LABS: Influenza A PCR NEGATIVE (Negative); Influenza B PCR NEGATIVE (Negative); Resp Syncy Virus RNA Qual PCR NEGATIVE (Negative); SARS COV2 PCR INHOUSE NEGATIVE (Negative)
[2024-04-16 09:31] LABS: Appearance Urine Clear; Color Urine Yellow; Glucose Urine UA >=1000 mg/dL (Negative); Leukocyte Esterase Urine Negative (Negative); Nitrite Urine Negative (Negative); PH 6.5 (5.0-9.0); Specific Gravity - Urine 1.015 (1.005-1.025); UMIC TRIGGER UACC YES; Urine Blood Negative (Negative); Urine Ketones Negative (Negative); Urine Protein 300 (3+) mg/dL (Neg-Trace)
[2024-04-16 09:36] LABS: Bacteria Urine None Seen (None Seen); Hyaline Casts Urine 0-2 /LPF (0-2); RBC Urine 0-2 /HPF (0-2); WBC Urine 0-5 /HPF (0-5)
[2024-04-16 09:50] LABS: Amphetamine Screen Urine Not Detected (Not Detect); Barbiturates, Urine Not Detected (Not Detect); Benzodiazepines Screen Urine Not Detected (Not Detect); Buprenorphine Scr Not Detected (Not Detect); Cannabinoid Screen Urine POSITIVE (Not Detect); Cocaine Screen Urine Not Detected (Not Detect); Fentanyl, urine Not Detected (Not Detect); Methadone Screen, Urine Not Detected (Not Detect); Opiate Screen Urine Not Detected (Not Detect); Oxycodone Screen Urine Not Detected (Not Detect); Phencyclidine Screen Urine Not Detected (Not Detect)
[2024-04-16 09:53] LABS: Glucose, Whole Blood 246 mg/dL (60-115)
--- NOTE | 2024-04-16 10:57 | PC.NURSE ---
patient ambulates one assist to the bathroom with tech. patient endorsing visual hallucinations, states it is sometimes a man, woman or children standing in her room smiling at her and not saying anything. patient states she had hallucination her daughter was in the room and wouldnt tell her she loved her, which made patient very upset. patient reassured that she is safe, and that no one will hurt her. patient states she feels very scared. ED provider aware
[2024-04-16] MEDS: OLANZapine 5 MG TABLET PO (11:02)
[2024-04-16 11:48] LABS: Troponin-I High Sensitivity 19.5 ng/L (<3.5-17.0)
--- NOTE | 2024-04-16 12:06 | PC.NURSE ---
patient sitting up in chair, calm and relaxed appearing
--- NOTE | 2024-04-16 15:30 | PHA.MEDREC ---
Addendum entered by Dionte Castro RPh 04/16/24 15:39: Reviewed by [facility] Original Note: Pharmacy Consult ? Medication Reconciliation Pharmacy has completed the medication reconciliation. Spoke with patients daughter over the phone to confirm medications. She was at the patients house and was able to read off of her medications bottles. They all match claims besides lisinopril which was last filled 11/09/23. Since it was with her other meds I will keep on med rec. She confirmed lantus 10 units. She does not know when she last took them.
--- NOTE | 2024-04-16 17:51 | PC.NURSE ---
patient awake, sitting back in chair, tearful again, states her daughter is next to her and mad at her. patient reassured that her daughter is not at the bedside next to her, and is not mad her. patient given gingerale.
--- NOTE | 2024-04-16 20:31 | PC.NURSE ---
this rn assumed care of pt, pt sitting in recliner, no acute distress noted.
--- NOTE | 2024-04-16 20:36 | PC.NURSE ---
report given to S1 at this time, pt to be transferred to unit with security.
[2024-04-16] MEDS: Atorvastatin Calcium 40 MG TABLET PO (23:04)
[2024-04-16] MEDS: Metoprolol Tartrate 100 MG TABLET 200 MG PO (23:04)
[2024-04-16] MEDS: lisinopriL 40 MG TABLET PO (23:05)
[2024-04-16] MEDS: Insulin Glargine,Hum.rec.anlog 100 UNIT/ML 10 ML VIAL 10 UNIT SUBCUT (23:06)
[2024-04-16] MEDS: Nortriptyline HCl 25 MG CAPSULE PO (23:07)
[2024-04-16] MEDS: amLODIPine Besylate 10 MG TABLET PO (23:07)
[2024-04-16 23:20] LABS: Glucose, Whole Blood 318 mg/dL (60-115)
--- NOTE | 2024-04-17 03:35 | PC.ADMIT ---
Yaneth Iraheta is a 78years old Hebrew speaking female with past medical hx of asthma, HLD, DM and manic depression many years ago which according to her daughter, Pt. was on mood stabilizers at that time. Pt. presented to the ED with distressing AVH and associated mental health decompensation. Pt. reports started last summer after she spent several weeks at [facility] for a short term rehab following multiple falls at home. Tox. screen was +ve for marijuana at the ED. Per ED report, pt is a regular daily marijuana user for coping, helping her sleep and to stimulate her apetite. Pt. arrived on the unit at 20:53 on 04-16-24 with admitting diagnosis for unspecified psychosis. Pt. is alert and oriented x3, but can be confused at times. Pt signed a CV. Pt. is calm, pleasant and complaint with admission process, mood is sad, affect is anxious and appeared to be responding to internal stimuli. Pt reports her anxiety and depression is 3/10. Pt. states that the hallucinations is frustrating her and that's what scares her. Pt. also states the distressing hallucinations has continued since her arrival to the ED. pt noted to be visually hallucinating upon her arrival to S1, pointing underneath the kitchen table stating what is that dog doing there, I almost hit his face moving my leg around . At one point in her room, Pt. reports also seeing children sitting at the edge of her bed. Pt was advised all that she is seeing was not real. pt became irritable and yelled out you think its funny but its not funny, I know what am seeing and that's exactly what am telling you. Pt. became tearful multiple times experiencing and talking about these distressing VH. Pt denied SI/HI. Pt denied pain. Pt utilizes walker for ambulation with a steady gait. Pt. contracts for safety on the unit. Pt's BP elevated at time of arrival, 160-190 systolic, cardiac rehabilitation specialist provider notified, home antihypertensive med ordered and administered.no visible skin issues noticed. Belongings inventoried and secured. Hospitalist consulted via [employer]. pt able to attend to her own ADL's with supervisions.
[2024-04-17] MEDS: Omeprazole 40 MG CAPSULE.DR PO (06:37)
[2024-04-17 07:00] LABS: Glucose, Whole Blood 195 mg/dL (60-115)
[2024-04-17 10:00] VITALS: BP 143/79; PULSE 76; RESP 18; TEMP 36.8; O2SAT 98
[2024-04-17] MEDS: Aspirin Enteric Coated 81 MG TABLET.DR PO (10:27)
[2024-04-17] MEDS: amLODIPine Besylate 10 MG TABLET PO (10:27)
[2024-04-17] MEDS: lisinopriL 40 MG TABLET PO (10:27)
[2024-04-17] MEDS: Cholecalciferol (Vitamin D3) 25 MCG TABLET PO (10:27)
[2024-04-17] MEDS: Empagliflozin 10 MG TABLET PO (10:28)
[2024-04-17] MEDS: Metoprolol Tartrate 100 MG TABLET 200 MG PO ×2 (10:28→20:51)
[2024-04-17] MEDS: Fluticasone/Vilanterol 100/25 BLST.W.DEV 1 PUFF INHALE (10:28)
--- NOTE | 2024-04-17 13:17 | PM.EVENT ---
Event Note Date of Service: 04/17/24 Event Note: conuslt for DM managemnet, will start metformin 1gm bid, continue lantus, monitor pocs. Time Spent With Patient Time: Total time managing care of this patient today ____ minutes.
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
[2024-04-17] MEDS: Flu Vacc TS2024-25(6mos up)/PF 0.5 ML SYRINGE IM (13:55)
[2024-04-17] MEDS: OLANZapine 2.5 MG TABLET PO ×2 (14:26→20:52)
[2024-04-17] MEDS: metFORMIN HCl 500 MG TABLET PO (16:50)
[2024-04-17] MEDS: hydrOXYzine HCL 25 MG TABLET PO (17:58)
[2024-04-17 19:54] LABS: Glucose, Whole Blood 190 mg/dL (60-115)
[2024-04-17 20:00] VITALS: BP 146/65; PULSE 93; RESP 16; TEMP 36.4; O2SAT 95
[2024-04-17 20:51] VITALS: BP 146/65; PULSE 93
[2024-04-17] MEDS: traZODone HCL 50 MG TABLET PO (20:52)
[2024-04-17] MEDS: Nortriptyline HCl 25 MG CAPSULE PO (20:52)
[2024-04-17] MEDS: Atorvastatin Calcium 40 MG TABLET PO (20:52)
[2024-04-17] MEDS: Insulin Glargine,Hum.rec.anlog 100 UNIT/ML 10 ML VIAL 10 UNIT SUBCUT (20:53)
[2024-04-18] MEDS: Omeprazole 40 MG CAPSULE.DR PO (06:42)
[2024-04-18 06:49] LABS: Glucose, Whole Blood 110 mg/dL (60-115)
[2024-04-18 08:00] VITALS: BP 134/62; PULSE 75; RESP 16; TEMP 36.3; O2SAT 97
[2024-04-18] MEDS: Albuterol Sulfate 90 MCG 8 GM INHALER 2 PUFF INHALE (08:53)
[2024-04-18] MEDS: Fluticasone/Vilanterol 100/25 BLST.W.DEV 1 PUFF INHALE (08:54)
[2024-04-18] MEDS: metFORMIN HCl 500 MG TABLET PO ×2 (08:57→17:06)
[2024-04-18] MEDS: Aspirin Enteric Coated 81 MG TABLET.DR PO (08:58)
[2024-04-18] MEDS: Metoprolol Tartrate 100 MG TABLET 200 MG PO ×2 (09:02→20:55)
[2024-04-18] MEDS: lisinopriL 40 MG TABLET PO (09:03)
[2024-04-18] MEDS: OLANZapine 2.5 MG TABLET PO ×3 (09:04→20:55)
[2024-04-18] MEDS: Empagliflozin 10 MG TABLET PO (09:04)
[2024-04-18] MEDS: Cholecalciferol (Vitamin D3) 25 MCG TABLET PO (09:04)
[2024-04-18] MEDS: amLODIPine Besylate 10 MG TABLET PO (09:05)
--- NOTE | 2024-04-18 17:11 | HO.PSYCHPN ---
Subjective Subjective Date of Service: 04/18/24 Reason For Visit: mental health crisis Interim History: calm, cooperative. psychotic symptoms improved, but not resolved. per staff, tearful, sad. C/O AVH. Mental Status Exam Mental Status Exam Narrative: disheveled, in hospital [facility]. cooperative. no PMA/PMR. speech nml rate, amount, loudness, tone, latency. thoughts linear, logical. affect constricted, hyper-intense, min-labile. mood crummy. AVH persist, but substantially improved. no SI/SIBI/HI expressed. Diagnostics Vital Signs (24Hr): Vital Signs - 24 hr 04/17/24 20:00 04/17/24 20:51 04/18/24 08:00 Temperature 97.5 F 97.3 F Pulse Rate 93 93 75 Respiratory Rate 16 16 Blood Pressure 146/65 H 146/65 H 134/62 Pulse Oximetry 95 97 Oxygen Delivery Method Room Air Room Air BMI result Body Mass Index 21.5 Labs 04/16/24 07:58 04/16/24 07:58 Labs: Laboratory Results - last 48 hr 04/16/24 04/17/24 04/17/24 23:05 06:56 19:41 POC Glucose 318 H 195 H 190 H 04/18/24 06:41 POC Glucose 110 Imaging Radiology Impressions: ITS Impressions Chest X-Ray 04/16/24 06:52 IMPRESSION: No acute finding. Electronically signed by: Yohannes Ambrosio MD 04/16/2024 08:[address] 04/16/24 07:08 IMPRESSION: No acute intracranial finding. Electronically signed by: Yohannes Ambrosio MD 04/16/2024 08:26 AM EDT Medications Medications Current Medications Acetaminophen (Acetaminophen 325 Mg Tablet) 650 mg PO Q6H PRN PRN Reason: Headache/Pain Mild Scale (1-3) Al Hydroxide/Mg Hydroxide (Magnesium Hydrox/Alum Hydrox 30 Ml Oral.Susp) 30 ml PO Q6H PRN PRN Reason: Heartburn/Nausea Albuterol Sulfate (Albuterol Sulfate 90 Mcg 8 Gm Inhaler) 2 puff INHALE QID PRN PRN Reason: Wheezing Last Admin: 04/18/24 08:53 Dose: 2 puff Amlodipine Besylate (Amlodipine Besylate 10 Mg Tablet) 10 mg PO DAILY [facility]; Protocol Last Admin: 04/18/24 09:05 Dose: 10 mg Aspirin (Aspirin Enteric Coated 81 Mg Tablet.) 81 mg PO DAILY [facility] Last Admin: 04/18/24 08:58 Dose: 81 mg Atorvastatin Calcium (Atorvastatin Calcium 40 Mg Tablet) 40 mg PO BEDTIME [facility] Last Admin: 04/17/24 20:52 Dose: 40 mg Empagliflozin (Empagliflozin 10 Mg Tablet) 10 mg PO DAILY [facility] Last Admin: 04/18/24 09:04 Dose: 10 mg Fluticasone/Vilanterol (Fluticasone/Vilanterol 100/25 Blst.W.Dev) 1 puff INHALE RDAILY [facility] Last Admin: 04/18/24 08:54 Dose: 1 puff Hydroxyzine HCl (Hydroxyzine Hcl 25 Mg Tablet) 25 mg PO Q6H PRN PRN Reason: Anxiety Last Admin: 04/17/24 17:58 Dose: 25 mg Insulin Glargine (Insulin Glargine,Hum.Rec.Anlog 100 Unit/Ml 10 Ml Vial) 10 unit SUBCUT BEDTIME [facility] Last Admin: 04/17/24 20:53 Dose: 10 unit Lisinopril (Lisinopril 40 Mg Tablet) 40 mg PO DAILY [facility]; Protocol Last Admin: 04/18/24 09:03 Dose: 40 mg Magnesium Hydroxide (Milk Of Magnesia 30 Ml Oral.Susp) 30 ml PO DAILY PRN PRN Reason: Constipation Metformin HCl (Metformin Hcl 500 Mg Tablet) 500 mg PO BIDWM [facility] Last Admin: 04/18/24 17:06 Dose: 500 mg Metoprolol Tartrate (Metoprolol Tartrate 100 Mg Tablet) 200 mg PO BID [facility]; Protocol Last Admin: 04/18/24 09:02 Dose: 200 mg Nortriptyline HCl (Nortriptyline Hcl 25 Mg Capsule) 25 mg PO BEDTIME [facility] Last Admin: 04/17/24 20:52 Dose: 25 mg Olanzapine (Olanzapine 2.5 Mg Tablet) 2.5 mg PO TID [facility] Last Admin: 04/18/24 15:33 Dose: 2.5 mg Omeprazole (Omeprazole 40 Mg Capsule.) 40 mg PO DAILY@0630 [facility] Last Admin: 04/18/24 06:42 Dose: 40 mg Trazodone HCl (Trazodone Hcl 50 Mg Tablet) 50 mg PO BEDTIME MRX1 PRN PRN Reason: Insomnia Last Admin: 04/17/24 20:52 Dose: 50 mg Vitamin D (Cholecalciferol (Vitamin D3) 25 Mcg Tablet) 25 mcg PO DAILY EMMANUEL Last Admin: 04/18/24 09:04 Dose: 25 mcg Allergies Allergies Allergy/AdvReac Type Severity Reaction Status Date / Time silver Allergy Unknown SKIN TEARS Verified 04/16/24 06:09 [From [employer] MESH] TAPE,PAPER Allergy Mild Itching Uncoded 04/16/24 06:09 Assessment & Plan Assessment & Plan (1) Hallucinations: Status: Acute Code(s): R44.3 - Hallucinations, unspecified (2) HTN (hypertension): Qualifiers: Hypertension type: renovascular hypertension Qualified Code(s): I15.0 - Renovascular hypertension Status: Acute Code(s): I10 - Essential (primary) hypertension (3) Diabetes: Status: Acute Code(s): E11.9 - Type 2 diabetes mellitus without complications (4) Renal artery stenosis, [place]: Status: Acute Code(s): I70.1 - Atherosclerosis of renal artery (5) CKD (chronic kidney disease) stage 3, GFR 30-59 ml/min: Qualifiers: Chronic kidney disease stage 3 subtype: stage 3a (GFR 45-59) Qualified Code(s): N18.31 - Chronic kidney disease, stage 3a Status: Acute Code(s): N18.30 - Chronic kidney disease, stage 3 unspecified (6) CAD (coronary artery disease): Status: Acute Code(s): I25.10 - Atherosclerotic heart disease of [place] coronary artery without angina pectoris Plan decrease in fxn in recent months - CVA, TBI, substance-induced, dementia onset related, exacerbation of pre-existing mental illness? 04/17: continue home meds as available. medical consult for mgmt of HTN and DM, as several of home meds are not on formulary. start zyprexa 2.5 mg TID for hallucinations. titrate as indicated. 04/18: improved Sx from yesterday. continue current mgmt. Reason for continued inpatient stay Substantial Risk for: inability to function and rapid decompensation Time Spent With Patient Time: Total time managing care of this patient today ____ minutes.
[2024-04-18 20:00] VITALS: BP 134/58; PULSE 75; RESP 16; TEMP 36.3; O2SAT 97
[2024-04-18 20:27] LABS: Glucose, Whole Blood 225 mg/dL (60-115)
[2024-04-18] MEDS: Insulin Glargine,Hum.rec.anlog 100 UNIT/ML 10 ML VIAL 10 UNIT SUBCUT (20:54)
[2024-04-18 20:55] VITALS: BP 134/58; PULSE 75
[2024-04-18] MEDS: traZODone HCL 50 MG TABLET PO (20:55)
[2024-04-18] MEDS: Atorvastatin Calcium 40 MG TABLET PO (20:56)
[2024-04-18] MEDS: Nortriptyline HCl 25 MG CAPSULE PO (20:57)
--- NOTE | 2024-04-19 | ECG_ITS ---
Test Reason : QTC PROLONGNATION Blood Pressure : / mmHG Vent. Rate : 059 BPM Atrial Rate : 059 BPM P-R Int : 174 ms QRS Dur : 158 ms QT Int : 466 ms P-R-T Axes : 066 -32 141 degrees QTc Int : 461 ms Sinus bradycardia Left axis deviation Left bundle branch block Abnormal ECG When compared with ECG of 16-APR-2024 07:34, No significant change was found Referred By: Nevaeh Rasmussen Electronically Signed By:LESVIA GRACIA
[2024-04-19] MEDS: Omeprazole 40 MG CAPSULE.DR PO (06:48)
[2024-04-19 06:57] LABS: Glucose, Whole Blood 79 mg/dL (60-115)
[2024-04-19 08:00] VITALS: BP 123/80; PULSE 86; RESP 18; TEMP 36.2; O2SAT 96
[2024-04-19] MEDS: Aspirin Enteric Coated 81 MG TABLET.DR PO (09:01)
[2024-04-19] MEDS: Empagliflozin 10 MG TABLET PO (09:01)
[2024-04-19] MEDS: metFORMIN HCl 500 MG TABLET PO ×2 (09:01→18:00)
[2024-04-19 09:02] VITALS: BP 123/80
[2024-04-19] MEDS: OLANZapine 2.5 MG TABLET PO (09:02)
[2024-04-19] MEDS: amLODIPine Besylate 10 MG TABLET PO (09:02)
[2024-04-19] MEDS: lisinopriL 40 MG TABLET PO (09:02)
[2024-04-19] MEDS: Cholecalciferol (Vitamin D3) 25 MCG TABLET PO (09:02)
[2024-04-19 09:03] VITALS: BP 123/80; PULSE 86
[2024-04-19] MEDS: Metoprolol Tartrate 100 MG TABLET 200 MG PO ×2 (09:03→21:07)
[2024-04-19] MEDS: Fluticasone/Vilanterol 100/25 BLST.W.DEV 1 PUFF INHALE (09:03)
--- NOTE | 2024-04-19 13:00 | MHC.EDTECH ---
PHYLLIS/TEZ KRAUSE: [phone]...WANTS CALL...CANNOT FIND MOM AND WOULD LIKE TO HEAR FROM SOMEONE THIS CALL TAKEN @ 1300 04/19/24 BY T/W
--- NOTE | 2024-04-19 14:20 | P.PNPSI_ITS ---
Subjective Subjective Date of Service: 04/19/24 Reason For Visit: mental health crisis Subjective Notes: Conditional Voluntary and 3 Day Interim History: Pt slept 7hrs. She reports seeing face and trunk of women. She reports is scary when she sees her, they don't talk to her. She is however fearful of them. She also wonders if they are trying to take pictures off the wall from her room at home. She reports feeling anxious about returning home and seeing them. She also does not feel comfortable here and signed a 3 day. She has loss her vision due to cataracts, pending surgery which couldn't be done due to high A1c. We discussed switching olanzapine to risperidone as it may have less effect on BS control. Diagnostics Vital Signs (24Hr): Vital Signs - 24 hr 04/18/24 20:00 04/18/24 20:55 04/19/24 08:00 Temperature 97.3 F 97.2 F Pulse Rate 75 75 86 Respiratory Rate 16 18 Blood Pressure 134/58 L 134/58 L 123/80 Pulse Oximetry 97 96 Oxygen Delivery Method Room Air Room Air 04/19/24 09:02 04/19/24 09:02 04/19/24 09:03 Temperature Pulse Rate 86 Respiratory Rate Blood Pressure 123/80 123/80 123/80 Pulse Oximetry Oxygen Delivery Method BMI result Body Mass Index 21.5 Labs 04/16/24 07:58 04/16/24 07:58 Labs: Laboratory Results - last 48 hr 04/17/24 04/18/24 04/18/24 19:41 06:41 20:02 POC Glucose 190 H 110 225 H 04/19/24 06:43 POC Glucose 79 Imaging Radiology Impressions: ITS Impressions Chest X-Ray 04/16/24 06:52 IMPRESSION: No acute finding. Electronically signed by: Yohannes Ambrosio MD 04/16/2024 08:12 AM EDT RP Head CT 04/16/24 07:08 IMPRESSION: No acute intracranial finding. Electronically signed by: Yohannes Ambrosio MD 04/16/2024 08:26 AM EDT RP Medications Medications Current Medications Acetaminophen (Acetaminophen 325 Mg Tablet) 650 mg PO Q6H PRN PRN Reason: Headache/Pain Mild Scale (1-3) Al Hydroxide/Mg Hydroxide (Magnesium Hydrox/Alum Hydrox 30 Ml Oral.Susp) 30 ml PO Q6H PRN PRN Reason: Heartburn/Nausea Albuterol Sulfate (Albuterol Sulfate 90 Mcg 8 Gm Inhaler) 2 puff INHALE QID PRN PRN Reason: Wheezing Last Admin: 04/18/24 08:53 Dose: 2 puff Amlodipine Besylate (Amlodipine Besylate 10 Mg Tablet) 10 mg PO DAILY [facility]; Protocol Last Admin: 04/19/24 09:02 Dose: 10 mg Aspirin (Aspirin Enteric Coated 81 Mg Tablet.Dr) 81 mg PO DAILY [facility] Last Admin: 04/19/24 09:01 Dose: 81 mg Atorvastatin Calcium (Atorvastatin Calcium 40 Mg Tablet) 40 mg PO BEDTIME [facility] Last Admin: 04/18/24 20:56 Dose: 40 mg Empagliflozin (Empagliflozin 10 Mg Tablet) 10 mg PO DAILY [facility] Last Admin: 04/19/24 09:01 Dose: 10 mg Fluticasone/Vilanterol (Fluticasone/Vilanterol 100/25 Blst.W.Dev) 1 puff INHALE RDAILY [facility] Last Admin: 04/19/24 09:03 Dose: 1 puff Hydroxyzine HCl (Hydroxyzine Hcl 25 Mg Tablet) 25 mg PO Q6H PRN PRN Reason: Anxiety Last Admin: 04/17/24 17:58 Dose: 25 mg Insulin Glargine (Insulin Glargine,Hum.Rec.Anlog 100 Unit/Ml 10 Ml Vial) 10 unit SUBCUT BEDTIME [facility] Last Admin: 04/18/24 20:54 Dose: 10 unit Lisinopril (Lisinopril 40 Mg Tablet) 40 mg PO DAILY [facility]; Protocol Last Admin: 04/19/24 09:02 Dose: 40 mg Magnesium Hydroxide (Milk Of Magnesia 30 Ml Oral.Susp) 30 ml PO DAILY PRN PRN Reason: Constipation Metformin HCl (Metformin Hcl 500 Mg Tablet) 500 mg PO BIDWM [facility] Last Admin: 04/19/24 09:01 Dose: 500 mg Metoprolol Tartrate (Metoprolol Tartrate 100 Mg Tablet) 200 mg PO BID [facility]; Protocol Last Admin: 04/19/24 09:03 Dose: 200 mg Nortriptyline HCl (Nortriptyline Hcl 25 Mg Capsule) 25 mg PO BEDTIME [facility] Last Admin: 04/18/24 20:57 Dose: 25 mg Olanzapine (Olanzapine 2.5 Mg Tablet) 2.5 mg PO TID [facility] Last Admin: 04/19/24 09:02 Dose: 2.5 mg Omeprazole (Omeprazole 40 Mg Capsule.Dr) 40 mg PO DAILY@0630 [facility] Last Admin: 04/19/24 06:48 Dose: 40 mg Trazodone HCl (Trazodone Hcl 50 Mg Tablet) 50 mg PO BEDTIME MRX1 PRN PRN Reason: Insomnia Last Admin: 04/18/24 20:55 Dose: 50 mg Vitamin D (Cholecalciferol (Vitamin D3) 25 Mcg Tablet) 25 mcg PO DAILY [facility] Last Admin: 04/19/24 09:02 Dose: 25 mcg Allergies Allergies Allergy/AdvReac Type Severity Reaction Status Date / Time silver Allergy Unknown SKIN TEARS Verified 04/16/24 06:09 [From [employer]ESH] TAPE,PAPER Allergy Mild Itching Uncoded 04/16/24 06:09 Assessment & Plan Assessment & Plan (1) Hallucinations: Status: Acute Code(s): R44.3 - Hallucinations, unspecified (2) HTN (hypertension): Qualifiers: Hypertension type: renovascular hypertension Qualified Code(s): I15.0 - Renovascular hypertension Status: Acute Code(s): I10 - Essential (primary) hypertension (3) Diabetes: Status: Acute Code(s): E11.9 - Type 2 diabetes mellitus without complications (4) Renal artery stenosis, [place]: Status: Acute Code(s): I70.1 - Atherosclerosis of renal artery (5) CKD (chronic kidney disease) stage 3, GFR 30-59 ml/min: Qualifiers: Chronic kidney disease stage 3 subtype: stage 3a (GFR 45-59) Qualified Code(s): N18.31 - Chronic kidney disease, stage 3a Status: Acute Code(s): N18.30 - Chronic kidney disease, stage 3 unspecified (6) CAD (coronary artery disease): Status: Acute Code(s): I25.10 - Atherosclerotic heart disease of [place] coronary artery without angina pectoris Plan 04/17: continue home meds as available. medical consult for mgmt of HTN and DM, as several of home meds are not on formulary. start zyprexa 2.5 mg TID for hallucinations. titrate as indicated. 04/18: improved Sx from yesterday. continue current mgmt. 04/19 no prior psych hx. New onset visual hallucinations. No AH. Fearful about what VH may do to her. 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 In these situations, low doses of anipsychotics can help, but also medications like aricept, gabapentin. Reason for continued inpatient stay Substantial Risk for: inability to function Time Spent With Patient Time: Total time managing care of this patient today ____ minutes.
[2024-04-19 20:00] VITALS: BP 121/58; PULSE 77; RESP 16; TEMP 36.6; O2SAT 95
[2024-04-19 20:38] LABS: Glucose, Whole Blood 182 mg/dL (60-115)
[2024-04-19] MEDS: risperiDONE 0.5 MG TABLET PO (21:07)
[2024-04-19] MEDS: Donepezil HCl 5 MG TABLET PO (21:08)
[2024-04-19] MEDS: Atorvastatin Calcium 40 MG TABLET PO (21:08)
[2024-04-19] MEDS: Nortriptyline HCl 25 MG CAPSULE PO (21:08)
[2024-04-19] MEDS: Insulin Glargine,Hum.rec.anlog 100 UNIT/ML 10 ML VIAL 10 UNIT SUBCUT (21:08)
[2024-04-20] MEDS: Omeprazole 40 MG CAPSULE.DR PO (05:57)
[2024-04-20 06:50] LABS: Glucose, Whole Blood 79 mg/dL (60-115)
[2024-04-20 08:05] VITALS: BP 121/62; PULSE 63; RESP 18; TEMP 36.6; O2SAT 98
[2024-04-20] MEDS: metFORMIN HCl 500 MG TABLET PO ×2 (08:15→16:53)
[2024-04-20] MEDS: risperiDONE 0.5 MG TABLET PO ×2 (08:15→21:12)
[2024-04-20] MEDS: Cholecalciferol (Vitamin D3) 25 MCG TABLET PO (08:15)
[2024-04-20] MEDS: lisinopriL 40 MG TABLET PO (08:15)
[2024-04-20] MEDS: Metoprolol Tartrate 100 MG TABLET 200 MG PO ×2 (08:15→21:12)
[2024-04-20] MEDS: Aspirin Enteric Coated 81 MG TABLET.DR PO (08:15)
[2024-04-20] MEDS: Empagliflozin 10 MG TABLET PO (08:15)
[2024-04-20] MEDS: Fluticasone/Vilanterol 100/25 BLST.W.DEV 1 PUFF INHALE (08:19)
[2024-04-20 08:23] LABS: Estimated Average Glucose 229 mg/dL; Hemoglobin A1C 226.3076 umol/L; Hemoglobin A1c % 9.6 % (<6.0); Total Hemoglobin (HGBA1C) 2786.7122 umol/L
[2024-04-20] MEDS: amLODIPine Besylate 10 MG TABLET PO (08:27)
--- NOTE | 2024-04-20 09:06 | P.PNPSI_ITS ---
Subjective Subjective Date of Service: 04/20/24 Reason For Visit: mental health crisis Subjective Notes: Conditional Voluntary and 3 Day Interim History: Pt slept 7hrs. She reports feeling calmer, less visual hallucinations but reports having one this morning and went away. She reports she saw chair that seemed like woman was there but then turned around and was not there. Some increased insight that what she is seeing is not there. She declines to retract 3day. We spoke with daughter- gave clinical update, medication update. Plan to dc on day 3 day notice expires. No cogwheel. Medication Compliance: Yes Review of Systems Review of Systems Yes all other systems are reviewed and are negative Constitutional: Reports as per HPI Denies Abnormal speech present Diagnostics Vital Signs (24Hr): Vital Signs - 24 hr 04/19/24 20:00 Temperature 98 F Pulse Rate 77 Respiratory Rate 16 Blood Pressure 121/58 L Pulse Oximetry 95 Oxygen Delivery Method Room Air BMI result Body Mass Index 21.5 Labs 04/16/24 07:58 04/16/24 07:58 Labs: Laboratory Results - last 48 hr 04/18/24 04/19/24 04/19/24 20:02 06:43 20:23 POC Glucose 225 H 79 182 H Estimat Average Glucose Hemoglobin A1c % 04/20/24 04/20/24 06:37 07:34 POC Glucose 79 Estimat Average Glucose 229 Hemoglobin A1c % 9.6 H Imaging Radiology Impressions: ITS Impressions Chest X-Ray 04/16/24 06:52 IMPRESSION: No acute finding. Electronically signed by: Yohannes Ambrosio MD 04/16/2024 08:12 AM EDT RP Head CT 04/16/24 07:08 IMPRESSION: No acute intracranial finding. Electronically signed by: Yohannes Ambrosio MD 04/16/2024 08:26 AM EDT RP Medications Medications Current Medications Acetaminophen (Acetaminophen 325 Mg Tablet) 650 mg PO Q6H PRN PRN Reason: Headache/Pain Mild Scale (1-3) Al Hydroxide/Mg Hydroxide (Magnesium Hydrox/Alum Hydrox 30 Ml Oral.Susp) 30 ml PO Q6H PRN PRN Reason: Heartburn/Nausea Albuterol Sulfate (Albuterol Sulfate 90 Mcg 8 Gm Inhaler) 2 puff INHALE QID PRN PRN Reason: Wheezing Last Admin: 04/18/24 08:53 Dose: 2 puff Amlodipine Besylate (Amlodipine Besylate 10 Mg Tablet) 10 mg PO DAILY [facility]; Protocol Last Admin: 04/20/24 08:27 Dose: 10 mg Aspirin (Aspirin Enteric Coated 81 Mg Tablet.) 81 mg PO DAILY [facility] Last Admin: 04/20/24 08:15 Dose: 81 mg Atorvastatin Calcium (Atorvastatin Calcium 40 Mg Tablet) 40 mg PO BEDTIME [facility] Last Admin: 04/19/24 21:08 Dose: 40 mg Donepezil HCl (Donepezil Hcl 5 Mg Tablet) 5 mg PO BEDTIME [facility] Last Admin: 04/19/24 21:08 Dose: 5 mg Empagliflozin (Empagliflozin 10 Mg Tablet) 10 mg PO DAILY [facility] Last Admin: 04/20/24 08:15 Dose: 10 mg Fluticasone/Vilanterol (Fluticasone/Vilanterol 100/25 Blst.W.Dev) 1 puff INHALE RDAILY [facility] Last Admin: 04/20/24 08:19 Dose: 1 puff Insulin Glargine (Insulin Glargine,Hum.Rec.Anlog 100 Unit/Ml 10 Ml Vial) 10 unit SUBCUT BEDTIME [facility] Last Admin: 04/19/24 21:08 Dose: 10 unit Lisinopril (Lisinopril 40 Mg Tablet) 40 mg PO DAILY [facility]; Protocol Last Admin: 04/20/24 08:15 Dose: 40 mg Magnesium Hydroxide (Milk Of Magnesia 30 Ml Oral.Susp) 30 ml PO DAILY PRN PRN Reason: Constipation Metformin HCl (Metformin Hcl 500 Mg Tablet) 500 mg PO BIDWM [facility] Last Admin: 04/20/24 08:15 Dose: 500 mg Metoprolol Tartrate (Metoprolol Tartrate 100 Mg Tablet) 200 mg PO BID [facility]; Protocol Last Admin: 04/20/24 08:15 Dose: 200 mg Nortriptyline HCl (Nortriptyline Hcl 25 Mg Capsule) 25 mg PO BEDTIME [facility] Last Admin: 04/19/24 21:08 Dose: 25 mg Omeprazole (Omeprazole 40 Mg Capsule.) 40 mg PO DAILY@0630 [facility] Last Admin: 04/20/24 05:57 Dose: 40 mg Risperidone (Risperidone 0.5 Mg Tablet) 0.5 mg PO BID [facility] Last Admin: 04/20/24 08:15 Dose: 0.5 mg Trazodone HCl (Trazodone Hcl 50 Mg Tablet) 50 mg PO BEDTIME MRX1 PRN PRN Reason: Insomnia Last Admin: 04/18/24 20:55 Dose: 50 mg Vitamin D (Cholecalciferol (Vitamin D3) 25 Mcg Tablet) 25 mcg PO DAILY [facility] Last Admin: 04/20/24 08:15 Dose: 25 mcg Allergies Allergies Allergy/AdvReac Type Severity Reaction Status Date / Time silver Allergy Unknown SKIN TEARS Verified 04/16/24 06:09 [From [email or web address]] TAPE,PAPER Allergy Mild Itching Uncoded 04/16/24 06:09 Assessment & Plan Assessment & Plan (1) Hallucinations: Status: Acute Code(s): R44.3 - Hallucinations, unspecified (2) HTN (hypertension): Qualifiers: Hypertension type: renovascular hypertension Qualified Code(s): I15.0 - Renovascular hypertension Status: Acute Code(s): I10 - Essential (primary) hypertension (3) Diabetes: Status: Acute Code(s): E11.9 - Type 2 diabetes mellitus without complications (4) Renal artery stenosis, [place]: Status: Acute Code(s): I70.1 - Atherosclerosis of renal artery (5) CKD (chronic kidney disease) stage 3, GFR 30-59 ml/min: Qualifiers: Chronic kidney disease stage 3 subtype: stage 3a (GFR 45-59) Qualified Code(s): N18.31 - Chronic kidney disease, stage 3a Status: Acute Code(s): N18.30 - Chronic kidney disease, stage 3 unspecified (6) CAD (coronary artery disease): Status: Acute Code(s): I25.10 - Atherosclerotic heart disease of [place] coronary artery without angina pectoris Plan 04/17: continue home meds as available. medical consult for mgmt of HTN and DM, as several of home meds are not on formulary. start zyprexa 2.5 mg TID for hallucinations. titrate as indicated. 04/18: improved Sx from yesterday. continue current mgmt. 04/19 no prior psych hx. New onset visual hallucinations. No AH. Fearful about what VH may do to her. 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 In these situations, low doses of anipsychotics can help, but also medications like aricept, gabapentin. 04/20 continue tx. Reason for continued inpatient stay Substantial Risk for: inability to function Time Spent With Patient Time: Total time managing care of this patient today ____ minutes.
[2024-04-20] MEDS: Acetaminophen 325 MG TABLET 650 MG PO (11:14)
[2024-04-20 20:00] VITALS: BP 141/61; PULSE 73; RESP 16; TEMP 36.3; O2SAT 95
[2024-04-20 21:12] VITALS: BP 141/61; PULSE 73
[2024-04-20] MEDS: Atorvastatin Calcium 40 MG TABLET PO (21:12)
[2024-04-20] MEDS: Insulin Glargine,Hum.rec.anlog 100 UNIT/ML 10 ML VIAL 10 UNIT SUBCUT (21:12)
[2024-04-20] MEDS: Nortriptyline HCl 25 MG CAPSULE PO (21:12)
[2024-04-20] MEDS: Donepezil HCl 5 MG TABLET PO (21:13)
[2024-04-20 21:36] LABS: Glucose, Whole Blood 129 mg/dL (60-115)
[2024-04-21] VITALS (8 sets, daily range): BP systolic 119–185; BP diastolic 57–89; PULSE 60–97; RESP 16–18; TEMP 36.2–36.7; O2SAT 96–99; BMI 20.7
[2024-04-21] MEDS: Omeprazole 40 MG CAPSULE.DR PO (06:07)
[2024-04-21 06:45] LABS: Glucose, Whole Blood 70 mg/dL (60-115)
[2024-04-21] MEDS: Empagliflozin 10 MG TABLET PO (08:48)
[2024-04-21] MEDS: Aspirin Enteric Coated 81 MG TABLET.DR PO (08:52)
[2024-04-21] MEDS: Cholecalciferol (Vitamin D3) 25 MCG TABLET PO (08:52)
[2024-04-21] MEDS: metFORMIN HCl 500 MG TABLET PO ×2 (08:52→17:23)
[2024-04-21] MEDS: risperiDONE 0.5 MG TABLET PO ×2 (08:53→20:22)
[2024-04-21] MEDS: Fluticasone/Vilanterol 100/25 BLST.W.DEV 1 PUFF INHALE (08:58)
[2024-04-21] MEDS: Metoprolol Tartrate 100 MG TABLET 200 MG PO ×2 (10:20→20:22)
[2024-04-21] MEDS: amLODIPine Besylate 10 MG TABLET PO (10:21)
[2024-04-21] MEDS: lisinopriL 40 MG TABLET PO (10:21)
[2024-04-21] MEDS: Acetaminophen 325 MG TABLET 650 MG PO ×2 (10:26→20:23)
--- NOTE | 2024-04-21 10:37 | PC.NURSE ---
Yaneth's BP this AM was 119/57, HR 60 - Nevaeh Rasmussen NP made aware and insturcted this securities underwriter to take orthos and hold cardiac meds. Cardiac meds were held, and orthostatic BPs were taken and found to be the following: supine 185/75 (HR 77), sitting 161/67 (HR 80), and standing 143/71 (HR 80) - Nevaeh Rasmussen NP made aware and instructed this securities underwriter to give Yaneth's cardiac meds as unscheduled. Pt received her cardiac meds unscheduled at about 10:15 am per Nevaeh Rasmussen NP and SEP.
[2024-04-21] MEDS: Magnesium Hydrox/Alum Hydrox 30 ML ORAL.SUSP PO (16:29)
[2024-04-21 20:14] LABS: Glucose, Whole Blood 114 mg/dL (60-115)
[2024-04-21] MEDS: Atorvastatin Calcium 40 MG TABLET PO (20:22)
[2024-04-21] MEDS: Nortriptyline HCl 25 MG CAPSULE PO (20:22)
[2024-04-21] MEDS: Donepezil HCl 5 MG TABLET PO (20:23)
[2024-04-21] MEDS: Insulin Glargine,Hum.rec.anlog 100 UNIT/ML 10 ML VIAL 10 UNIT SUBCUT (20:27)
[2024-04-22] MEDS: Omeprazole 40 MG CAPSULE.DR PO (06:43)
[2024-04-22 06:57] LABS: Glucose, Whole Blood 58 mg/dL (60-115)
--- NOTE | 2024-04-22 07:04 | PC.NURSE ---
Patients AM POC was 58. Given 8 oz of cranberry juice. [place] provider notified. Repeat POC 15 min later was 97. Patient denies s/s of hypoglycemia.
[2024-04-22 07:05] LABS: Glucose, Whole Blood 97 mg/dL (60-115)
[2024-04-22 08:21] VITALS: BP 109/64; PULSE 63; RESP 17; TEMP 36.7; O2SAT 96
[2024-04-22] MEDS: Cholecalciferol (Vitamin D3) 25 MCG TABLET PO (08:46)
[2024-04-22] MEDS: lisinopriL 40 MG TABLET PO (08:46)
[2024-04-22] MEDS: Aspirin Enteric Coated 81 MG TABLET.DR PO (08:46)
[2024-04-22] MEDS: Metoprolol Tartrate 100 MG TABLET 200 MG PO (08:46)
[2024-04-22] MEDS: amLODIPine Besylate 10 MG TABLET PO (08:46)
[2024-04-22] MEDS: metFORMIN HCl 500 MG TABLET PO (08:46)
[2024-04-22] MEDS: Empagliflozin 10 MG TABLET PO (08:47)
[2024-04-22] MEDS: risperiDONE 0.5 MG TABLET PO (08:47)
[2024-04-22] MEDS: Fluticasone/Vilanterol 100/25 BLST.W.DEV 1 PUFF INHALE (08:49)
--- NOTE | 2024-04-22 10:01 | PM.PSYDC ---
DS: Providers Provider Date of Service: 04/22/24 Date of admission: 04/16/24 18:18 Date of discharge: 04/22/24 Primary care physician: Gene Sanchez MD Consults: 04/17/24 13:10 Consult to Hospitalist Routine Comment: multiple of pt's outpt meds not available here Consulting Provider: Hospitalist Reason For Exam: DM mgmt; HTN Discharging clinician: Nevaeh Rasmussen DS: Diagnosis Discharge Diagnosis (1) Hallucinations: Status: Acute (2) HTN (hypertension): Status: Acute (3) Diabetes: Status: Acute (4) Renal artery stenosis, [place]: Status: Acute (5) CKD (chronic kidney disease) stage 3, GFR 30-59 ml/min: Status: Acute (6) CAD (coronary artery disease): Status: Acute DS: Medications Discharge Medications Home Medications: Home Medications ?Medication ?Instructions ?Recorded ?Confirmed dapagliflozin propanediol 5 mg 5 mg PO DAILY 07/31/23 04/16/24 tablet (Farxiga) fluticasone furoate 100 1 ea inhalation DAILY 04/16/24 04/16/24 mcg-vilanterol 25 mcg/dose inhalation powder (Breo Ellipta) insulin glargine 100 unit/mL 10 unit subcut BEDTIME 04/16/24 04/16/24 subcutaneous solution (Lantus U-100 Insulin) linagliptin 5 mg tablet (Tradjenta) 5 mg PO DAILY 04/16/24 04/16/24 Previous Rx's ?Medication ?Instructions ?Recorded albuterol sulfate 90 mcg/actuation 2 puff inhalation QID PRN Wheezing 04/22/24 aerosol inhaler (Ventolin HFA) #6.7 grams amlodipine 10 mg tablet 10 mg PO DAILY #30 tabs 04/22/24 aspirin 81 mg tablet,delayed 81 mg PO DAILY #30 tabs 04/22/24 release atorvastatin 40 mg tablet 40 mg PO BEDTIME #30 tabs 04/22/24 cholecalciferol (vitamin D3) 25 25 mcg PO DAILY #30 caps 04/22/24 mcg (1,000 unit) capsule donepezil 5 mg tablet 5 mg PO BEDTIME #30 tabs 04/22/24 lisinopril 40 mg tablet 40 mg PO DAILY #30 tabs 04/22/24 metformin 500 mg tablet 500 mg PO BIDWM #60 tabs 04/22/24 metoprolol tartrate 100 mg tablet 200 mg PO BID #120 tabs 04/22/24 omeprazole 40 mg capsule,delayed 40 mg PO DAILY@0630 #30 caps 04/22/24 release risperidone 0.5 mg tablet 0.5 mg PO BID #60 tabs 04/22/24 trazodone 50 mg tablet 50 mg PO BEDTIME PRN Insomnia #30 04/22/24 tabs Mental Status Exam Mental Status Exam Narrative: Appearance: casually groomed, good hygiene, in NAD Behavior: cooperative Psychomotor: no agitation or retardation noted Speech: clear, normal rate/rhythm/volume, spontaneous TP: linear TC: less anxious, less VH Mood: better Affect: congruent SI: none HI: none VH/AH: less visual hallucinations Delusions: less paranoia Insight/judgment: improving Memory/cog: alert, oriented x 3. Data Data Completed and Pending Completed studies during hospitalization [Text1]: 04/16/24 04/16/24 04/16/24 07:45 07:58 09:24 WBC 8.0 RBC 4.43 Hgb 13.0 Hct 39.6 MCV 89.4 MCH 29.3 MCHC 32.8 RDW 15.1 Plt Count 250 MPV 11.0 Immature Gran % (Auto) 0.4 Neut % (Auto) 74.9 H Lymph % (Auto) 15.9 L [place] % (Auto) 7.5 Eos % (Auto) 0.6 Baso % (Auto) 0.7 Lymph # (Auto) 1.3 [place] # (Auto) 0.6 Eos # (Auto) 0.1 Baso # (Auto) 0.1 Abs Immat Gran (auto) 0.03 Absolute Neuts (auto) 6.0 Absolute Nucleated RBC 0.000 Nucleated RBC % (auto) 0.0 PT 9.9 L INR 0.9 Sodium 136 Potassium 4.4 Chloride 101 Carbon Dioxide 24 Anion Gap 15 BUN 22 H Creatinine 1.68 H Estim Creat Clear Calc 21.4 Estimated GFR 30 POC Glucose Random Glucose 318 H Estimat Average Glucose Hemoglobin A1c % Calcium 10.3 H D Magnesium 2.1 Total Bilirubin 0.3 AST 20 ALT 13 Alkaline Phosphatase 115 Troponin I High Sens 22.5 H Total Protein 7.6 Albumin 4.0 Urine Color Yellow Urine Appearance Clear Urine pH 6.5 Ur Specific [place] 1.015 Urine Protein 300 (3+) H Urine Glucose (UA) >=1000 H Urine Ketones Negative Urine Blood Negative Urine Nitrite Negative Ur Leukocyte Esterase Negative Urine RBC 0-2 Urine WBC 0-5 Ur Squamous Epith Cells 11-20 Urine Bacteria None Seen Hyaline Casts 0-2 Urine Opiates Screen Not Detected Ur Buprenorphine Scrn Not Detected Ur Oxycodone Screen Not Detected Urine Methadone Screen Not Detected Urine Fentanyl Screen Not Detected Ur Barbiturates Screen Not Detected Ur Phencyclidine Scrn Not Detected Ur Amphetamines Screen Not Detected U Benzodiazepines Scrn Not Detected Urine Cocaine Screen Not Detected U Marijuana (THC) Screen POSITIVE H Influenza Type A (PCR) NEGATIVE Influenza Type B (PCR) NEGATIVE RSV RNA Qual (PCR) NEGATIVE SARS-CoV-2 RNA (RT-PCR) NEGATIVE 04/16/24 04/16/24 04/16/24 09:50 11:10 23:05 WBC RBC Hgb Hct MCV MCH MCHC RDW Plt Count MPV Immature Gran % (Auto) Neut % (Auto) Lymph % (Auto) [place] % (Auto) Eos % (Auto) Baso % (Auto) Lymph # (Auto) [place] # (Auto) Eos # (Auto) Baso # (Auto) Abs Immat Gran (auto) Absolute Neuts (auto) Absolute Nucleated RBC Nucleated RBC % (auto) PT INR Sodium Potassium Chloride Carbon Dioxide Anion Gap BUN Creatinine Estim Creat Clear Calc Estimated GFR POC Glucose 246 H 318 H Random Glucose Estimat Average Glucose Hemoglobin A1c % Calcium Magnesium Total Bilirubin AST ALT Alkaline Phosphatase Troponin I High Sens 19.5 H Total Protein Albumin Urine Color Urine Appearance Urine pH Ur Specific [place] Urine Protein Urine Glucose (UA) Urine Ketones Urine Blood Urine Nitrite Ur Leukocyte Esterase Urine RBC Urine WBC Ur Squamous Epith Cells Urine Bacteria Hyaline Casts Urine Opiates Screen Ur Buprenorphine Scrn Ur Oxycodone Screen Urine Methadone Screen Urine Fentanyl Screen Ur Barbiturates Screen Ur Phencyclidine Scrn Ur Amphetamines Screen U Benzodiazepines Scrn Urine Cocaine Screen U Marijuana (THC) Screen Influenza Type A (PCR) Influenza Type B (PCR) RSV RNA Qual (PCR) SARS-CoV-2 RNA (RT-PCR) 04/17/24 04/17/24 04/18/24 06:56 19:41 06:41 WBC RBC Hgb Hct MCV MCH MCHC RDW Plt Count MPV Immature Gran % (Auto) Neut % (Auto) Lymph % (Auto) [place] % (Auto) Eos % (Auto) Baso % (Auto) Lymph # (Auto) [place] # (Auto) Eos # (Auto) Baso # (Auto) Abs Immat Gran (auto) Absolute Neuts (auto) Absolute Nucleated RBC Nucleated RBC % (auto) PT INR Sodium Potassium Chloride Carbon Dioxide Anion Gap BUN Creatinine Estim Creat Clear Calc Estimated GFR POC Glucose 195 H 190 H 110 Random Glucose Estimat Average Glucose Hemoglobin A1c % Calcium Magnesium Total Bilirubin AST ALT Alkaline Phosphatase Troponin I High Sens Total Protein Albumin Urine Color Urine Appearance Urine pH Ur Specific [place] Urine Protein Urine Glucose (UA) Urine Ketones Urine Blood Urine Nitrite Ur Leukocyte Esterase Urine RBC Urine WBC Ur Squamous Epith Cells Urine Bacteria Hyaline Casts Urine Opiates Screen Ur Buprenorphine Scrn Ur Oxycodone Screen Urine Methadone Screen Urine Fentanyl Screen Ur Barbiturates Screen Ur Phencyclidine Scrn Ur Amphetamines Screen U Benzodiazepines Scrn Urine Cocaine Screen U Marijuana (THC) Screen Influenza Type A (PCR) Influenza Type B (PCR) RSV RNA Qual (PCR) SARS-CoV-2 RNA (RT-PCR) 04/18/24 04/19/24 04/19/24 20:02 06:43 20:23 WBC RBC Hgb Hct MCV MCH MCHC RDW Plt Count MPV Immature Gran % (Auto) Neut % (Auto) Lymph % (Auto) [place] % (Auto) Eos % (Auto) Baso % (Auto) Lymph # (Auto) [place] # (Auto) Eos # (Auto) Baso # (Auto) Abs Immat Gran (auto) Absolute Neuts (auto) Absolute Nucleated RBC Nucleated RBC % (auto) PT INR Sodium Potassium Chloride Carbon Dioxide Anion Gap BUN Creatinine Estim Creat Clear Calc Estimated GFR POC Glucose 225 H 79 182 H Random Glucose Estimat Average Glucose Hemoglobin A1c % Calcium Magnesium Total Bilirubin AST ALT Alkaline Phosphatase Troponin I High Sens Total Protein Albumin Urine Color Urine Appearance Urine pH Ur Specific [place] Urine Protein Urine Glucose (UA) Urine Ketones Urine Blood Urine Nitrite Ur Leukocyte Esterase Urine RBC Urine WBC Ur Squamous Epith Cells Urine Bacteria Hyaline Casts Urine Opiates Screen Ur Buprenorphine Scrn Ur Oxycodone Screen Urine Methadone Screen Urine Fentanyl Screen Ur Barbiturates Screen Ur Phencyclidine Scrn Ur Amphetamines Screen U Benzodiazepines Scrn Urine Cocaine Screen U Marijuana (THC) Screen Influenza Type A (PCR) Influenza Type B (PCR) RSV RNA Qual (PCR) SARS-CoV-2 RNA (RT-PCR) 04/20/24 04/20/24 04/20/24 06:37 07:34 21:14 WBC RBC Hgb Hct MCV MCH MCHC RDW Plt Count MPV Immature Gran % (Auto) Neut % (Auto) Lymph % (Auto) [place] % (Auto) Eos % (Auto) Baso % (Auto) Lymph # (Auto) [place] # (Auto) Eos # (Auto) Baso # (Auto) Abs Immat Gran (auto) Absolute Neuts (auto) Absolute Nucleated RBC Nucleated RBC % (auto) PT INR Sodium Potassium Chloride Carbon Dioxide Anion Gap BUN Creatinine Estim Creat Clear Calc Estimated GFR POC Glucose 79 129 H Random Glucose Estimat Average Glucose 229 Hemoglobin A1c % 9.6 H Calcium Magnesium Total Bilirubin AST ALT Alkaline Phosphatase Troponin I High Sens Total Protein Albumin Urine Color Urine Appearance Urine pH Ur Specific [place] Urine Protein Urine Glucose (UA) Urine Ketones Urine Blood Urine Nitrite Ur Leukocyte Esterase Urine RBC Urine WBC Ur Squamous Epith Cells Urine Bacteria Hyaline Casts Urine Opiates Screen Ur Buprenorphine Scrn Ur Oxycodone Screen Urine Methadone Screen Urine Fentanyl Screen Ur Barbiturates Screen Ur Phencyclidine Scrn Ur Amphetamines Screen U Benzodiazepines Scrn Urine Cocaine Screen U Marijuana (THC) Screen Influenza Type A (PCR) Influenza Type B (PCR) RSV RNA Qual (PCR) SARS-CoV-2 RNA (RT-PCR) 04/21/24 04/21/24 04/22/24 06:38 20:09 06:45 WBC RBC Hgb Hct MCV MCH MCHC RDW Plt Count MPV Immature Gran % (Auto) Neut % (Auto) Lymph % (Auto) [place] % (Auto) Eos % (Auto) Baso % (Auto) Lymph # (Auto) [place] # (Auto) Eos # (Auto) Baso # (Auto) Abs Immat Gran (auto) Absolute Neuts (auto) Absolute Nucleated RBC Nucleated RBC % (auto) PT INR Sodium Potassium Chloride Carbon Dioxide Anion Gap BUN Creatinine Estim Creat Clear Calc Estimated GFR POC Glucose 70 114 58 L* Random Glucose Estimat Average Glucose Hemoglobin A1c % Calcium Magnesium Total Bilirubin AST ALT Alkaline Phosphatase Troponin I High Sens Total Protein Albumin Urine Color Urine Appearance Urine pH Ur Specific [place] Urine Protein Urine Glucose (UA) Urine Ketones Urine Blood Urine Nitrite Ur Leukocyte Esterase Urine RBC Urine WBC Ur Squamous Epith Cells Urine Bacteria Hyaline Casts Urine Opiates Screen Ur Buprenorphine Scrn Ur Oxycodone Screen Urine Methadone Screen Urine Fentanyl Screen Ur Barbiturates Screen Ur Phencyclidine Scrn Ur Amphetamines Screen U Benzodiazepines Scrn Urine Cocaine Screen U Marijuana (THC) Screen Influenza Type A (PCR) Influenza Type B (PCR) RSV RNA Qual (PCR) SARS-CoV-2 RNA (RT-PCR) 04/22/24 07:00 WBC RBC Hgb Hct MCV MCH MCHC RDW Plt Count MPV Immature Gran % (Auto) Neut % (Auto) Lymph % (Auto) [place] % (Auto) Eos % (Auto) Baso % (Auto) Lymph # (Auto) [place] # (Auto) Eos # (Auto) Baso # (Auto) Abs Immat Gran (auto) Absolute Neuts (auto) Absolute Nucleated RBC Nucleated RBC % (auto) PT INR Sodium Potassium Chloride Carbon Dioxide Anion Gap BUN Creatinine Estim Creat Clear Calc Estimated GFR POC Glucose 97 Random Glucose Estimat Average Glucose Hemoglobin A1c % Calcium Magnesium Total Bilirubin AST ALT Alkaline Phosphatase Troponin I High Sens Total Protein Albumin Urine Color Urine Appearance Urine pH Ur Specific [place] Urine Protein Urine Glucose (UA) Urine Ketones Urine Blood Urine Nitrite Ur Leukocyte Esterase Urine RBC Urine WBC Ur Squamous Epith Cells Urine Bacteria Hyaline Casts Urine Opiates Screen Ur Buprenorphine Scrn Ur Oxycodone Screen Urine Methadone Screen Urine Fentanyl Screen Ur Barbiturates Screen Ur Phencyclidine Scrn Ur Amphetamines Screen U Benzodiazepines Scrn Urine Cocaine Screen U Marijuana (THC) Screen Influenza Type A (PCR) Influenza Type B (PCR) RSV RNA Qual (PCR) SARS-CoV-2 RNA (RT-PCR) Imaging Diagnostic Imaging Impressions Chest X-Ray 04/16/24 06:52 IMPRESSION: No acute finding. Electronically signed by: Yohannes Ambrosio MD 04/16/2024 08:12 AM EDT RP Head CT 04/16/24 07:08 IMPRESSION: No acute intracranial finding. Electronically signed by: Yohannes Ambrosio MD 04/16/2024 08:26 AM EDT RP DS: Summary Hospital Course Hospital Course: per CARE team catalina palencia from home due to c/o AVH. reportedly these Sx began last summer after she experienced several falls. describes children walking through the [place] of her home, a strange man trying to climb into her hospital bed with her in the ED. variable reality testing. afraid of AVH. psych Hx unclear, per collateral from pt's daughter has h/o manic depression from years ago and maybe has h/o having been on mood stabilizers. pt is a daily user of cannabis and does not buy it from dispensary. reported she has not slept in days because she is afraid to close her eyes. poor appetite as well. on interview with MD, pt anxious, for a moment believes MD is not the same person who entered room a few minutes before and introduced himself, then calmed. denies substance use aside from tobacco and cannabis. denies mental health history of any substance. interested in anything which might decrease her Sx. educated re antipsychotic medication, pt would like to try. Past Psychiatric History: hosps: denies SA: denies SIB: denies outpatient: none currently. Patient reports she previously was taking Zoloft and stopped because I felt better . Used to see therapist at [facility] about 5 years ago. Medical Evaluation Reviewed: Yes HOSPITAL COURSE On the unit, pt was admitted on a CV and placed on 15 minutes checks for safety. Pt presented with new onset visual hallucinations of people. No auditory hallucinations. Some associated paranoid ideas, but also some degree that these images were not really there. Per pt and her daughter, no prior hx of psychosis or delusions. Suspect this new onset of visual hallucinations are related to neurological conditions rather than primarily psychiatric illness. Pt has had significant decrease in vision due to cataracts. She was due to have surgery but due to elevated A1c (currently 9.6%) she has not been able to have it. She also has hx of multiple occipital strokes, and although these are not new, in combination with worsening vision, it could cause a syndrome like yamini Bonnet. Another diagnosis to exclude would be LBD. After discussing risks, benefits and alternative treatment options, she was started initially on olanzapine, but given that goal is to decrease A1c, this medication was switched to risperidone. She was also started on aricept which is some cases like yamini bonnet or LBD may have a more robust impact on visual hallucinations. It will be interesting to see what happens to VH, after cataract surgery. She signed a 3 day notice. She was taking medications as prescribed. She reported less visual hallucinations but did have times when she saw them. INterestingly she would see a face then turn around and realized was a chair. She also seem to present as calmer and less fearful or suspicious of visual hallucination. Pt was advised to stay on the unit few more days to assess effectiveness of treatment but she declined. Her BP noted to have orthostatic changes, not always hypotensive. While on the unit, she was continued on lantus and metformin, BS were mostly wnl, and one time fasting was actually low, which poses the question whether pt is in fact taking medication as prescribed or if diet differs to drastically from what she had here on the unit. She did agree to have visiting nurse to assist with medication management. Status at Discharge Cognitive/behavioral status at discharge: Pt with brighter, less fearful and anxious affect. No SI/HI. residual visual hallucinations but increase insight that those may not be there. Sleeping and eating well. NO behavioral concerns. Functional status at discharge: uses cane/walker Overall status at discharge: patient is progressing back to baseline Time Spent with Patient Time attestation: Total time managing care of this patient today ____ minutes. Time spent: Greater than 30 minutes Discharge Plan Discharge Anticipated Discharge Date/Time: 04/22/24 09:51 Patient Disposition: Home, Self-Care Discharge Diagnosis: R/o yamini philipp syndrome or LBD Referrals: [facility] [Other] - 05/13/24 2:30 pm (Your first psychiatry appointment is scheduled for 05/13/24 at 2:30pm with provider Conor Schaffer APRN in person. please arrive to [facility] 10 minutes early to complete paperwork.) [facility] [Other] - 04/22/24 (Request for your homecare services to restart was placed with your shoe parts caser Ann Carney at ext [phone]. She will follow up with you after discharge and your services will resume. ) [facility] [Other] - 04/23/24 (Referral places for visiting nurse to provide diabetes managment, medication education and managment and Occupational therapy when you return home. ) Gene Sanchez MD [Primary Care Provider] - 04/28/24 10:00 am (Your follow up appointment has been scheduled for 04/28/24 at 10am. ) Discharge Medications: New atorvastatin 40 mg Tablet 40 mg PO BEDTIME Qty: 30 0RF donepezil 5 mg Tablet 5 mg PO BEDTIME Qty: 30 0RF metoprolol tartrate 100 mg Tablet 200 mg PO BID Qty: 120 0RF Protocol: Hold for SBP/HR < HOLD for SBP < : 90 HOLD for HR < : 60 aspirin 81 mg Tablet,Delayed Release (Dr/Ec) 81 mg PO DAILY Qty: 30 0RF amlodipine 10 mg Tablet 10 mg PO DAILY Qty: 30 0RF Protocol: Hold for SBP< HOLD for SBP < : 90 albuterol sulfate [Ventolin HFA] 90 mcg/actuation Hfa Aerosol Inhaler 2 puff inhalation QID PRN (Reason: Wheezing) Qty: 6.7 0RF lisinopril 40 mg Tablet 40 mg PO DAILY Qty: 30 0RF Protocol: Hold for SBP< HOLD for SBP < : 90 metformin 500 mg Tablet 500 mg PO BIDWM Qty: 60 0RF trazodone 50 mg Tablet 50 mg PO BEDTIME PRN (Reason: Insomnia) Qty: 30 0RF omeprazole 40 mg Capsule,Delayed Release(Dr/Ec) 40 mg PO DAILY@0630 Qty: 30 0RF risperidone 0.5 mg Tablet 0.5 mg PO BID Qty: 60 0RF Continued insulin glargine [Lantus U-100 Insulin] 100 unit/mL solution 10 unit subcut BEDTIME Tradjenta 5 mg tablet 5 mg PO DAILY fluticasone furoate-vilanterol [Breo Ellipta] 100-25 mcg/dose blister with device 1 ea INHALATION DAILY cholecalciferol (vitamin D3) 25 mcg (1,000 unit) capsule 25 mcg PO DAILY Qty: 30 0RF Farxiga 5 mg tablet 5 mg PO DAILY Discontinued nortriptyline 25 mg capsule 1 - 2 cap PO BEDTIME aspirin 81 mg tablet,delayed release (DR/EC) 81 mg PO DAILY albuterol sulfate [Ventolin HFA] 90 mcg/actuation HFA aerosol inhaler 2 puff INHALATION QID PRN (Reason: Wheezing) atorvastatin 40 mg tablet 40 mg PO BEDTIME amlodipine 10 mg tablet 10 mg PO DAILY lisinopril 40 mg tablet 40 mg PO DAILY nateglinide 60 mg tablet 60 mg PO TIDAC Rx Instructions: give before meal(s) metoprolol tartrate 100 mg tablet 200 mg PO BID omeprazole 40 mg capsule,delayed release(DR/EC) 40 mg PO DAILY@0630 Discharge Orders: Discharge Order (Routine); Ordered 04/22/24 Ordered By: Nevaeh Rasmussen Diet: Diabetic diet Activity on Discharge: Use cane or walker Stand Alone Forms: Patient Portal Discharge page, Community Support Print Language: Upper Sorbian Care Plan Goals: maintain mood NO SI/HI less visual hallucinations Health Concerns: Follow up with PCP- DM control as A1c 9.6% Pt with ortho VS. Plan of Treatment: 1. take medications as prescribed 2. go to nearest ED or call 911 in event of emergency Assessment: Pt with brighter, less fearful affect. No SI/HI. Less VH, still happening. sleeping and eating well. Discharge Date/Time: 04/22/24 11:30
== END 2024-04-22 11:30 | disposition home or self-care (01) | DRG 57 ==
LOC: HO.ED 15:25 → HO.PGERI 18:23
PROVIDERS: Physician Assistant; Social Worker; Admitting Provider Psychiatry & Neurology Psychiatry; Emergency Provider Emergency Medicine; PCP Internal Medicine; Visit Provider Psychiatry & Neurology Psychiatry
DX: G31.83 Neurocognitive disorder with Lewy bodies (principal); H53.16 Psychophysical visual disturbances; I25.10 Atherosclerotic heart disease of native coronary artery without angina pectoris; F17.210 Nicotine dependence, cigarettes, uncomplicated; Z23 Encounter for immunization; Z71.6 Tobacco abuse counseling; I12.9 Hypertensive chronic kidney disease with stage 1 through stage 4 chronic kidney disease, or unspecified chronic kidney disease; N18.30 Chronic kidney disease, stage 3 unspecified; E11.22 Type 2 diabetes mellitus with diabetic chronic kidney disease; I70.1 Atherosclerosis of renal artery; Z20.822 Contact with and (suspected) exposure to COVID-19; Z79.82 Long term (current) use of aspirin; Z79.51 Long term (current) use of inhaled steroids; Z79.84 Long term (current) use of oral hypoglycemic drugs; Z79.899 Other long term (current) drug therapy
CPT/HCPCS: 0241U; 36415; 70450; 71045; 80053; 80307; 81001; 82947; 83036; 83735; 84484; 85025; 85610; 90656; 93005; 99285; S9485

== ENCOUNTER → 2024-04-16 06:51 | Outpatient (BNV) | payer MEDICARE, MEDICAID, SELFPAY | PROVIDERS: Emergency Provider Emergency Medicine; PCP Internal Medicine; Visit Provider Internal Medicine Cardiovascular Disease | DX: R94.31 Abnormal electrocardiogram [ECG] [EKG] (principal) | CPT/HCPCS: 93010 ==

== ENCOUNTER 2024-04-16 18:18 | Outpatient (BNV) | payer MEDICARE, MEDICAID, SELFPAY | END 2024-04-19 14:35 | PROVIDERS: Admitting Provider Psychiatry & Neurology Psychiatry; Emergency Provider Emergency Medicine; PCP Internal Medicine; Visit Provider Internal Medicine | DX: R00.1 Bradycardia, unspecified (principal) | CPT/HCPCS: 93010 ==

== ENCOUNTER → 2024-04-16 18:18 | Outpatient (BNV) | payer MEDICARE, MEDICAID, SELFPAY | PROVIDERS: Admitting Provider Psychiatry & Neurology Psychiatry; Emergency Provider Emergency Medicine; PCP Internal Medicine; Visit Provider Psychiatry & Neurology Psychiatry | DX: F29 Unspecified psychosis not due to a substance or known physiological condition (principal); E11.9 Type 2 diabetes mellitus without complications; I70.1 Atherosclerosis of renal artery; N18.31 Chronic kidney disease, stage 3a; I25.10 Atherosclerotic heart disease of native coronary artery without angina pectoris | CPT/HCPCS: 90792; 99231; 99232; 99238 ==

== ENCOUNTER 2024-05-10 10:42 | Inpatient (IN) | payer MEDICARE, MEDICAID, SELFPAY ==
[2024-05-10] VITALS (10 sets, daily range): BP systolic 109–152; BP diastolic 55–78; PULSE 84–115; RESP 17–24; TEMP 36.5–37.4; O2SAT 86–98; BMI 23.2
--- NOTE | ~2024-05-10 | XR_ITS ---
EXAMINATION: XR CHEST CLINICAL INFORMATION: Shortness of breath. COMPARISON: 04/16/2024. TECHNIQUE: Frontal view of the chest was obtained. FINDINGS: Lungs are hyperinflated. Chin obscures the lung apices, but no gross large pneumothorax appreciated. Cardiomediastinal silhouette is grossly stable in size allowing for differences in patient rotation. Increased diffuse interstitial opacities with increased small bilateral pleural effusions. Bibasilar opacities, left greater than right. Degenerative changes in the thoracic spine. XR/XR chest 1V IMPRESSION: Increased diffuse interstitial opacities, bibasilar airspace disease and small bilateral pleural effusions. This study was presented today 05/10/2024 for interpretation. Stat results provided at this time as requested by referring provider. Electronically signed by: Leslie Pelletier MD 05/10/2024 12:58 PM [facility]
--- NOTE | 2024-05-10 10:55 | ECG_ITS ---
Test Reason : SOB Blood Pressure : / mmHG Vent. Rate : 085 BPM Atrial Rate : 085 BPM P-R Int : 180 ms QRS Dur : 156 ms QT Int : 404 ms P-R-T Axes : 062 -16 081 degrees QTc Int : 480 ms Normal sinus rhythm with sinus arrhythmia Left bundle branch block Abnormal ECG When compared with ECG of 19-APR-2024 14:35, T wave inversion no longer evident in Inferior leads Referred By: Generic ED Physician Electronically Signed By:URI VENTURA MD
[2024-05-10 11:11] LABS: MANUAL DIFF FLAG NO
[2024-05-10 11:13] LABS: Basophils Percent Auto 0.3 % (0-2); Eosinophils Percent Auto 0.1 % (0-4); Hematocrit 34.4 % (37.0-47.0); Hemoglobin 11.5 g/dl (12.0-16.0); Imm Gran Abs Auto 0.03 X10*3/uL (0.00-0.03); Imm Gran Pct Auto 0.3 % (0.0-0.4); Lymphocytes Absolute Auto 0.8 X10*3/uL (1.2-4.9); Lymphocytes Percent Auto 7.1 % (20-40); Mean Corpuscular HGB Conc 33.4 g/dl (31.0-35.0); Mean Corpuscular Hemoglobin 29.4 pg (27.0-33.0); Mean Platelet Volume 10.6 fL (9.4-12.3); Monocytes Absolute Auto 1.1 X10*3/uL (0.1-1.2); Monocytes Percent Auto 10.7 % (2-11); Neutrophils Absolute Auto 8.6 x10*3/uL (2.0-8.3); Neutrophils Percent Auto 81.5 % (45-73); Platelet Count 249 X10*3/uL (160-400); Red Blood Count 3.91 X10*6/uL (4.20-5.50); Red Cell Distribution Width 15.2 % (11.0-16.0); White Blood Count 10.5 X10*3/uL (4.8-10.8)
--- NOTE | 2024-05-10 11:25 | ED_ITS ---
HPI - SOB/Dyspnea General Chief Complaint: Dyspnea Stated Complaint: SOB x2 days, 90% RA, 96% 2L Time Seen by Provider: 05/10/24 11:15 Source: patient Mode of arrival: EMS Limitations: no limitations History of Present Illness HPI Narrative: THIS IS A 78 YEARS OLD PATIENT WITH HISTORY OF COPD STILL SMOKER PRESENTED TO EMERGENCY DEPARTMENT WITH A CHIEF SHE WAS FOUND TO BE WITH A O2 SAT OF 88% ON ROOM AIR BY THE EMS USUALLY SHE IS NOT ON OXYGEN MD elicited complaint: shortness of breath Pertinent past history: COPD Onset (ago): day(s) (2) Timing: constant Severity: moderate Exacerbating factors: nothing Relieving factors: nothing Known history of: COPD Associated symptoms: denies other symptoms Related Data Home oxygen amount: none Home Medications ?Medication ?Instructions ?Recorded ?Confirmed dapagliflozin propanediol 5 mg 5 mg PO DAILY 07/31/23 05/10/24 tablet (Farxiga) fluticasone furoate 100 1 ea inhalation DAILY 04/16/24 05/10/24 mcg-vilanterol 25 mcg/dose inhalation powder (Breo Ellipta) insulin glargine 100 unit/mL 12 unit subcut BEDTIME 04/16/24 05/10/24 subcutaneous solution (Lantus U-100 Insulin) linagliptin 5 mg tablet (Tradjenta) 5 mg PO DAILY 04/16/24 05/10/24 nateglinide 60 mg tablet 60 mg PO TID 05/10/24 05/10/24 nortriptyline 25 mg capsule 25 - 50 mg PO BEDTIME 05/10/24 05/10/24 Previous Rx's ?Medication ?Instructions ?Recorded albuterol sulfate 90 mcg/actuation 2 puff inhalation QID PRN Wheezing 04/22/24 aerosol inhaler (Ventolin HFA) #6.7 grams amlodipine 10 mg tablet 10 mg PO DAILY #30 tabs 04/22/24 aspirin 81 mg tablet,delayed 81 mg PO DAILY #30 tabs 04/22/24 release atorvastatin 40 mg tablet 40 mg PO BEDTIME #30 tabs 04/22/24 cholecalciferol (vitamin D3) 25 25 mcg PO DAILY #30 caps 04/22/24 mcg (1,000 unit) capsule donepezil 5 mg tablet 5 mg PO BEDTIME #30 tabs 04/22/24 lisinopril 40 mg tablet 40 mg PO DAILY #30 tabs 04/22/24 metoprolol tartrate 100 mg tablet 200 mg PO BID #120 tabs 04/22/24 omeprazole 40 mg capsule,delayed 40 mg PO DAILY@0630 #30 caps 04/22/24 release risperidone 0.5 mg tablet 0.5 mg PO BID #60 tabs 04/22/24 trazodone 50 mg tablet 50 mg PO BEDTIME PRN Insomnia #30 04/22/24 tabs Allergies Allergy/AdvReac Type Severity Reaction Status Date / Time silver Allergy Unknown SKIN TEARS Verified 05/10/24 10:54 [From [employer] AG MESH] TAPE,PAPER Allergy Mild Itching Uncoded 05/10/24 10:54 Review of Systems 2 Constitutional: Constitutional: Reports no additional constitutional complaints Cardiovascular: Cardiovascular: Reports no additional cardiovascular complaints and Reports dyspnea Respiratory: Respiratory: Reports dyspnea [facility] Past Medical History Attestation statement: The following information was validated with the patient. [facility] Narrative: COPD, Medical History (Updated 05/10/24 @ 14:22 by Lora Ahmadi PA-C) CKD (chronic kidney disease) stage 3, GFR 30-59 ml/min PAD (peripheral artery disease) Diabetic ketoacidosis Major depressive disorder, recurrent, moderate Adjustment disorder CAD (coronary artery disease) GERD (gastroesophageal reflux disease) HTN (hypertension) Carotid artery occlusion Diabetes Hiatal hernia GERD (gastroesophageal reflux disease) Surgical History History of esophagogastroduodenoscopy (EGD) Family History Family History Father No problems noted. Mother No problems noted. Social History Social History Household Members: None Housing: Apartment Do you presently have visiting nurse or other home services: No Alcohol intake: never Patient Tobacco Use Status: Current everyday Tobacco user Tobacco use type: Cigarette Cigarette Packs Per Day: 1.5 Cigarettes Per Day: 30.0 Years Smoked: 40 Substance Use Type: Marijuana Advance Directives: Yes Advance Directives on File: Yes Advance Directives Date on File: 01/14/23 Do you have a plan to hurt others: No Plan service: No Current occupational status: retired Sexual orientation: Straight/Heterosexual Physical Exam 2 Vital Signs: Vital Signs: Last Vital Signs Temp 98.1 F 05/10/24 15:01 Pulse 86 05/10/24 15:01 Resp 20 05/10/24 15:01 BP 127/55 L 05/10/24 15:01 Pulse Ox 95 05/10/24 15:01 O2 Del Method Nasal Cannula 05/10/24 15:01 O2 Flow Rate 4 05/10/24 15:01 Oxygen Flow Rate 2 05/10/24 10:50 BMI result Body Mass Index 23.2 PATIENT LOOKS WELL NOT TOXIC APPEARING Const: General: cooperative Nutritional Appearance: average body habitus Orientation/consciousness: patient oriented x3 Limitations: no limitations HEENT: Head: Yes normal to inspection General nose exam: Normal external nose present Face and sinus: Yes normal facial exam Mouth: Normal oral and palatal mucosa present Neck: Neck: Yes normal visual inspection and Yes full ROM Chest: Chest palpation & inspection: normal inspection of the chest Resp: Effort & Inspection: normal respiratory effort Auscultation: clear to auscultation bilaterally Cardio: Jugular venous distension: no JVD Palpation: normal PMI Rate: r egular rate Rhythm: regular rhythm GI: Inspection: Yes normal to inspection Palpation (GI): Soft to palpation, not firm and nontender Auscultation: normal bowel sounds Skin: General skin exam: no rashes or lesions noted and elasticity normal Neuro: General: patient oriented x3 Course Reevaluation(s) Reevaluation #1: still hypoxic will admit Medications Administered Generic Name Dose Route Start Last Admin Trade Name Freq PRN Reason Stop Dose Admin Albuterol/Ipratropium 3 ml 05/10/24 16:00 05/10/24 15:30 Albuterol/Iprat 2.5/0.5mg 3 Ml Ampul.Neb INHALE Not Given RQ4H WHILE AWAKE EMMANUEL Ceftriaxone Sodium 1 gm 05/10/24 15:00 05/10/24 14:57 Ceftriaxone Sodium 1 Gm Vial IVPUSH 1 gm DAILY EMMANUEL Administration Enoxaparin Sodium 40 mg 05/10/24 15:00 05/10/24 14:57 Enoxaparin Sodium 40 Mg/0.4 Ml Syringe SUBCUT 40 mg Q24H EMMANUEL Administration Sodium Chloride 3 ml 05/10/24 16:00 05/10/24 15:10 0.9 % Sodium Chloride Flush 3 Ml Syringe IVFLUSH Not Given QSHIFT EMMANUEL Discontinued Medications Generic Name Dose Route Start Last Admin Trade Name Kar PRN Reason Stop Dose Admin Albuterol Sulfate 2.5 mg/ 0 mg 05/10/24 11:48 05/10/24 11:49 Albuterol/Ipratropium 3 ml INHALE 05/10/24 11:49 1 dose ONCE ONE Administration Albuterol Sulfate 5 mg/ 0 mg 05/10/24 13:22 05/10/24 13:28 Albuterol/Ipratropium 3 ml INHALE 05/10/24 13:23 1 each ONCE ONE Administration Furosemide 20 mg 05/10/24 12:58 05/10/24 13:06 Furosemide 20 Mg/2 Ml Vial IVPUSH 05/10/24 12:59 20 mg ONCE ONE Administration Protocol Magnesium Sulfate 2 gm in 50 mls @ 25 mls/hr 05/10/24 13:10 05/10/24 15:37 Magnesium Sulfate/H2o IV 05/10/24 15:09 Infused ONCE ONE Infusion Methylprednisolone Sodium Succinate 125 mg 05/10/24 11:30 05/10/24 11:40 Methylprednisolone Sod Succ 125 Mg/2 Ml Vial IVPUSH 05/10/24 11:31 125 mg ONCE ONE Administration Medical Decision Making Medical Decision Making [facility] Narrative: PATIENT PRESENTED TO ED WITH SHORTNESS OF BREATH HISTORY OF COPD WE WILL GET CHEST X-RAY LABS ADMINISTER SOLU-MEDROL AND BETA 2 AGONIST Differential Diagnosis Differential Diagnoses: The differential diagnosis associated with the presentation includes COPD FLARE/PNEUMONIA/PNEUMOTHORAX Admission/Observation Consideration of admission/observation: Escalation of care including admission/observation considered Consult Healthcare Provider Management of the patient was discussed with: Hospitalist Lab Data [facility] Lab Attestation statement: I reviewed the patient's lab results. 05/10/24 11:08 05/10/24 11:41 Labs: Lab Results 05/10/24 05/10/24 05/10/24 Range/Units 11:08 11:41 12:13 WBC 10.5 (4.8-10.8) X10*3/uL RBC 3.91 L (4.20-5.50) X10*6/uL Hgb 11.5 L (12.0-16.0) g/dl Hct 34.4 L (37.0-47.0) % MCV 88.0 (80.0-98.0) fL MCH 29.4 (27.0-33.0) pg MCHC 33.4 (31.0-35.0) g/dl RDW 15.2 (11.0-16.0) % Plt Count 249 (160-400) X10*3/uL MPV 10.6 (9.4-12.3) fL Immature Gran % (Auto) 0.3 (0.0-0.4) % Neut % (Auto) 81.5 H (45-73) % Lymph % (Auto) 7.1 L (20-40) % [place] % (Auto) 10.7 (2-11) % Eos % (Auto) 0.1 (0-4) % Baso % (Auto) 0.3 (0-2) % Lymph # (Auto) 0.8 L (1.2-4.9) X10*3/uL [place] # (Auto) 1.1 (0.1-1.2) X10*3/uL Eos # (Auto) 0.0 (0.0-0.4) X10*3/uL Baso # (Auto) 0.0 (0.0-0.2) X10*3/uL Abs Immat Gran (auto) 0.03 (0.00-0.03) X10*3/uL Absolute Neuts (auto) 8.6 H (2.0-8.3) x10*3/uL Absolute Nucleated RBC 0.000 (0.0-0.012) X10*3/uL Nucleated RBC % (auto) 0.0 (0.0-0.2) /100WBC O2 Saturation % ABG pH at Pt Temp (7.35-7.45) ABG pCO2 at Pt Temp (32-45) mmHg ABG pO2 at Pt Temp (83-108) mmHg ABG HCO3 (22-26) mmol/L ABG Base Excess (Actual) mmol/L Sodium 136 (135-145) mmol/L Potassium 4.4 (3.3-5.1) mmol/L Chloride 104 (96-108) mmol/L Carbon Dioxide 21 L (22-29) mmol/L Anion Gap 15 (12-20) BUN 11 (9-16) mg/dL Creatinine 1.13 (0.5-1.4) mg/dL Estim Creat Clear Calc 32.0 Estimated GFR 47 Random Glucose 119 H (60-115) mg/dL Calcium 8.9 D (8.4-10.2) mg/dL Total Bilirubin 0.4 (0.0-1.0) mg/dL AST 23 (5-31) U/L ALT 9 (0-31) U/L Alkaline Phosphatase 100 (39-117) U/L Troponin I High Sens 20.4 H (<3.5-17.0) ng/L B-Natriuretic Peptide 1509 H (<100) pg/mL Total Protein 6.5 (6.5-8.0) g/dL Albumin 3.3 L (3.5-5.0) g/dL Urine Color Yellow Urine Appearance Clear Urine pH 5.5 (5.0-9.0) Ur Specific [place] 1.010 (1.005-1.025) Urine Protein 100 (2+) H (Neg-Trace) mg/dL Urine Glucose (UA) 500 H (Negative) mg/dL Urine Ketones Negative (Negative) mg/dL Urine Blood Negative (Negative) Urine Nitrite Negative (Negative) Ur Leukocyte Esterase Negative (Negative) Urine RBC 0-2 (0-2) /HPF Urine WBC 0-5 (0-5) /HPF Ur Squamous Epith Cells 3-5 (0-2) /HPF Urine Bacteria None Seen (None Seen) Hyaline Casts 0-2 (0-2) /LPF Urine Opiates Screen Not Detected (Not Detect) Ur Buprenorphine Scrn Not Detected (Not Detect) ng/mL Ur Oxycodone Screen Not Detected (Not Detect) ng/mL Urine Methadone Screen Not Detected (Not Detect) ng/mL Urine Fentanyl Screen Not Detected (Not Detect) Ur Barbiturates Screen Not Detected (Not Detect) Ur Phencyclidine Scrn Not Detected (Not Detect) Ur Amphetamines Screen Not Detected (Not Detect) U Benzodiazepines Scrn Not Detected (Not Detect) Urine Cocaine Screen Not Detected (Not Detect) U Marijuana (THC) Screen POSITIVE H (Not Detect) 05/10/24 Range/Units 13:04 WBC (4.8-10.8) X10*3/uL RBC (4.20-5.50) X10*6/uL Hgb (12.0-16.0) g/dl Hct (37.0-47.0) % MCV (80.0-98.0) fL MCH (27.0-33.0) pg MCHC (31.0-35.0) g/dl RDW (11.0-16.0) % Plt Count (160-400) X10*3/uL MPV (9.4-12.3) fL Immature Gran % (Auto) (0.0-0.4) % Neut % (Auto) (45-73) % Lymph % (Auto) (20-40) % [place] % (Auto) (2-11) % Eos % (Auto) (0-4) % Baso % (Auto) (0-2) % Lymph # (Auto) (1.2-4.9) X10*3/uL [place] # (Auto) (0.1-1.2) X10*3/uL Eos # (Auto) (0.0-0.4) X10*3/uL Baso # (Auto) (0.0-0.2) X10*3/uL Abs Immat Gran (auto) (0.00-0.03) X10*3/uL Absolute Neuts (auto) (2.0-8.3) x10*3/uL Absolute Nucleated RBC (0.0-0.012) X10*3/uL Nucleated RBC % (auto) (0.0-0.2) /100WBC O2 Saturation 88.0 % ABG pH at Pt Temp 7.43 (7.35-7.45) ABG pCO2 at Pt Temp 30 L (32-45) mmHg ABG pO2 at Pt Temp 60 L (83-108) mmHg ABG HCO3 20 L (22-26) mmol/L ABG Base Excess (Actual) -2.5 mmol/L Sodium (135-145) mmol/L Potassium (3.3-5.1) mmol/L Chloride (96-108) mmol/L Carbon Dioxide (22-29) mmol/L Anion Gap (12-20) BUN (9-16) mg/dL Creatinine (0.5-1.4) mg/dL Estim Creat Clear Calc Estimated GFR Random Glucose (60-115) mg/dL Calcium (8.4-10.2) mg/dL Total Bilirubin (0.0-1.0) mg/dL AST (5-31) U/L ALT (0-31) U/L Alkaline Phosphatase (39-117) U/L Troponin I High Sens (<3.5-17.0) ng/L B-Natriuretic Peptide (<100) pg/mL Total Protein (6.5-8.0) g/dL Albumin (3.5-5.0) g/dL Urine Color Urine Appearance Urine pH (5.0-9.0) Ur Specific [place] (1.005-1.025) Urine Protein (Neg-Trace) mg/dL Urine Glucose (UA) (Negative) mg/dL Urine Ketones (Negative) mg/dL Urine Blood (Negative) Urine Nitrite (Negative) Ur Leukocyte Esterase (Negative) Urine RBC (0-2) /HPF Urine WBC (0-5) /HPF Ur Squamous Epith Cells (0-2) /HPF Urine Bacteria (None Seen) Hyaline Casts (0-2) /LPF Urine Opiates Screen (Not Detect) Ur Buprenorphine Scrn (Not Detect) ng/mL Ur Oxycodone Screen (Not Detect) ng/mL Urine Methadone Screen (Not Detect) ng/mL Urine Fentanyl Screen (Not Detect) Ur Barbiturates Screen (Not Detect) Ur Phencyclidine Scrn (Not Detect) Ur Amphetamines Screen (Not Detect) U Benzodiazepines Scrn (Not Detect) Urine Cocaine Screen (Not Detect) U Marijuana (THC) Screen (Not Detect) ABG Data Attestation ABG: I personally reviewed and interpreted this ABG as follows: Independent Interpretation I performed an independent interpretation of an: Plain X-Ray Radiology Impression Discussion of test interpretation with radiology: I have reviewed the radiologist's reading. Independent Historian Clinical information obtained from an independent historian. History obtained from or confirmed by: EMS External Record Review External record reviewed: Inpatient record Chronic Conditions Patient?s care impacted by: Other (COPD) Critical Care Time Critical Care Time Critical Care Time: Yes Total Critical Care Time: 60 Attestation: Multiple meds back to back Discharge Plan Discharge Clinical Impression: Acute exacerbation of chronic obstructive pulmonary disease, Hypoxia Patient Disposition: Admitted As Inpatient
[2024-05-10 11:33] LABS: Troponin-I High Sensitivity 20.4 ng/L (<3.5-17.0)
[2024-05-10] MEDS: methylPREDNISolone Sod Succ 125 MG/2 ML VIAL IVPUSH (11:40)
[2024-05-10] MEDS: Albuterol Sulfate 2.5 MG, Albuterol/Iprat 2.5/0.5MG 3 ML 3 ML INHALE (11:49)
[2024-05-10 12:01] LABS: B Type Natriuretic Peptide 1509 pg/mL (<100)
[2024-05-10 12:11] LABS: Alanine Aminotransferase 9 U/L (0-31); Albumin Level 3.3 g/dL (3.5-5.0); Anion Gap 15 (12-20); Aspartate Amino Transferase 23 U/L (5-31); Bilirubin Total 0.4 mg/dL (0.0-1.0); Blood Urea Nitrogen 11 mg/dL (9-16); Calcium 8.9 mg/dL (8.4-10.2); Carbon Dioxide 21 mmol/L (22-29); Chloride 104 mmol/L (96-108); Estimated Glomerular Filt Rate 47; Glucose Random 119 mg/dL (60-115); Potassium 4.4 mmol/L (3.3-5.1); Sodium 136 mmol/L (135-145); Total Protein 6.5 g/dL (6.5-8.0)
[2024-05-10 12:20] LABS: Appearance Urine Clear; Color Urine Yellow; Glucose Urine UA 500 mg/dL (Negative); Leukocyte Esterase Urine Negative (Negative); Nitrite Urine Negative (Negative); PH 5.5 (5.0-9.0); UMIC TRIGGER UACC YES; Urine Blood Negative (Negative); Urine Ketones Negative (Negative); Urine Protein 100 (2+) mg/dL (Neg-Trace)
[2024-05-10 12:25] LABS: Bacteria Urine None Seen (None Seen); Hyaline Casts Urine 0-2 /LPF (0-2); RBC Urine 0-2 /HPF (0-2); WBC Urine 0-5 /HPF (0-5)
[2024-05-10 12:34] LABS: Alkaline Phosphatase 100 U/L (39-117)
[2024-05-10 12:40] LABS: Amphetamine Screen Urine Not Detected (Not Detect); Barbiturates, Urine Not Detected (Not Detect); Benzodiazepines Screen Urine Not Detected (Not Detect); Buprenorphine Scr Not Detected (Not Detect); Cannabinoid Screen Urine POSITIVE (Not Detect); Cocaine Screen Urine Not Detected (Not Detect); Fentanyl, urine Not Detected (Not Detect); Methadone Screen, Urine Not Detected (Not Detect); Opiate Screen Urine Not Detected (Not Detect); Oxycodone Screen Urine Not Detected (Not Detect); Phencyclidine Screen Urine Not Detected (Not Detect)
--- NOTE | 2024-05-10 12:54 | PC.NURSE ---
patient stated she felt sob and that she cant breath, o2 is 86% on 3l nc. patient repositioned in bed, o2 sat remains 88% on 4lNC. patient appears anxious. ED provider aware
[2024-05-10] MEDS: Furosemide 20 MG/2 ML VIAL IVPUSH (13:06)
[2024-05-10 13:14] LABS: ABG Base Excess -2.5 mmol/L; ABG HCO3 20 mmol/L (22-26); ABG pCO2 30 mmHg (32-45); ABG pH 7.43 (7.35-7.45); ABG pO2 60 mmHg (83-108)
[2024-05-10] MEDS: Magnesium Sulfate/H2O 2 GM/50 ML PIGGYBACK IV (13:21)
[2024-05-10] MEDS: Albuterol Sulfate 5 MG, Albuterol/Iprat 2.5/0.5MG 3 ML 3 ML INHALE (13:28)
--- NOTE | 2024-05-10 13:43 | P.HPHOSP_ITS ---
History of Present Illness Date of Service: 05/10/24 Attending physician on admission: [facility] Chief Complaint: SOB x2 days Patient is a 78-year-old female past medical history significant for COPD (smokes 1.5 ppd), IDDM CKD 3, PID, major depressive disorder CAD GERD hypertension hiatal hernia, carotid artery occlusion and recent admission to [facility] for hallucinations, who presented to the ED today with shortness of breath x2 days. She called EMS and her oxygen saturation was 88% when they arrived. They gave her a DuoNeb and started her on 2 L of oxygen, with some improvement of O2 sat however she reports that she is not feeling any better. She denies any chest pain, headache, vomiting, sick contacts, lower extremity edema, fever or chills. She smokes 1.5 packs of cigarettes a day but reports over the last 2 days she has cut back significantly and wants to quit ?cold turkey ?. Review of Systems 2 Constitutional: Constitutional: Denies body ache(s), Denies chills, Denies fever(s) and Denies headache(s) Eyes: Eyes: Denies blurry vision and Denies change in vision ENT: Reports dry mouth, Denies headache(s), Reports nasal congestion, Reports nasal discharge and Denies sore throat Cardiovascular: Cardiovascular: Denies chest pain, Denies rapid heart rate, Denies pedal edema, Denies lightheadedness, Reports dyspnea and Reports dyspnea on exertion Respiratory: Respiratory: Denies cough, Reports dyspnea and Reports dyspnea on exertion Gastrointestinal: Gastrointestinal: Denies constipation, Denies diarrhea, Reports nausea and Denies vomiting Genitourinary: Genitourinary: Denies dysuria Musculoskeletal: Musculoskeletal: Denies myalgias Integumentary/Breasts: Skin/Breast: Denies rash Neurologic: Denies confusion and Denies headache(s) Psychiatric: Psychiatric: Denies confusion [facility] Medical History (Updated 05/10/24 @ 14:22 by Lora Ahmadi PA-C) CKD (chronic kidney disease) stage 3, GFR 30-59 ml/min PAD (peripheral artery disease) Diabetic ketoacidosis Major depressive disorder, recurrent, moderate Adjustment disorder CAD (coronary artery disease) GERD (gastroesophageal reflux disease) HTN (hypertension) Carotid artery occlusion Diabetes Hiatal hernia GERD (gastroesophageal reflux disease) Family History Father No problems noted. Mother No problems noted. Surgical History History of esophagogastroduodenoscopy (EGD) Social History Household Members: None Housing: Apartment Do you presently have visiting nurse or other home services: No Alcohol intake: never Patient Tobacco Use Status: Current everyday Tobacco user Tobacco use type: Cigarette Cigarette Packs Per Day: 1.5 Cigarettes Per Day: 30.0 Years Smoked: 40 Substance Use Type: Marijuana Advance Directives: Yes Advance Directives on File: Yes Advance Directives Date on File: 01/14/23 Do you have a plan to hurt others: No Plan service: No Current occupational status: retired Sexual orientation: Straight/Heterosexual Meds Allergies Allergy/AdvReac Type Severity Reaction Status Date / Time silver Allergy Unknown SKIN TEARS Verified 05/10/24 10:54 [From [employer] AG MESH] TAPE,PAPER Allergy Mild Itching Uncoded 05/10/24 10:54 Active Medications: Current Medications Magnesium Sulfate (Magnesium Sulfate/H2o) 2 gm in 50 mls @ 25 mls/hr IV ONCE ONE Stop: 05/10/24 15:09 Last Admin: 05/10/24 13:21 Dose: 25 mls/hr Home Medications ?Medication ?Instructions ?Recorded ?Confirmed ?Last Taken ?Type dapagliflozin propanediol 5 mg 5 mg PO DAILY 07/31/23 05/10/24 05/10/24 History tablet (Farxiga) fluticasone furoate 100 1 ea inhalation DAILY 04/16/24 05/10/24 05/10/24 History mcg-vilanterol 25 mcg/dose inhalation powder (Breo Ellipta) insulin glargine 100 unit/mL 12 unit subcut BEDTIME 04/16/24 05/10/24 05/09/24 History subcutaneous solution (Lantus U-100 Insulin) linagliptin 5 mg tablet (Tradjenta) 5 mg PO DAILY 04/16/24 05/10/24 05/10/24 History nateglinide 60 mg tablet 60 mg PO TID 05/10/24 05/10/24 Unknown History nortriptyline 25 mg capsule 25 - 50 mg PO BEDTIME 05/10/24 05/10/24 05/09/24 History Physical Exam 2 Vital Signs and Narrative: Vital Signs: Last Vital Signs Temp 97.8 F 05/10/24 12:48 Pulse 84 05/10/24 13:28 Resp 22 H 05/10/24 13:28 BP 152/78 H 05/10/24 12:48 Pulse Ox 88 L 05/10/24 12:57 O2 Del Method Nasal Cannula 05/10/24 12:57 O2 Flow Rate 4 05/10/24 12:57 Oxygen Flow Rate 2 05/10/24 10:50 BMI result Body Mass Index 23.2 General: AOx3, mild respiratory distress Resp: CTA bilaterally, diminished throughout, no wheezing or crackles CVS: S1, S2, RRR GI: +BS, NT, no distention Skin: Warm, dry Extremities: No edema Psych: Appropriate affect Const: General: No confusion Orientation/consciousness: No confusion Neuro: General: No confusion Results Labs 05/10/24 11:08 05/10/24 11:41 Labs: Laboratory Results - last 24 hr 05/10/24 05/10/24 05/10/24 11:08 11:41 12:13 MCV 88.0 MCH 29.4 MCHC 33.4 RDW 15.2 Plt Count 249 MPV 10.6 Immature Gran % (Auto) 0.3 Neut % (Auto) 81.5 H Lymph % (Auto) 7.1 L [place] % (Auto) 10.7 Eos % (Auto) 0.1 Baso % (Auto) 0.3 Lymph # (Auto) 0.8 L [place] # (Auto) 1.1 Eos # (Auto) 0.0 Baso # (Auto) 0.0 Abs Immat Gran (auto) 0.03 Absolute Neuts (auto) 8.6 H Absolute Nucleated RBC 0.000 Nucleated RBC % (auto) 0.0 O2 Saturation ABG pH at Pt Temp ABG pCO2 at Pt Temp ABG pO2 at Pt Temp ABG HCO3 ABG Base Excess (Actual) Anion Gap 15 Estim Creat Clear Calc 32.0 Estimated GFR 47 Random Glucose 119 H Calcium 8.9 D Total Bilirubin 0.4 AST 23 ALT 9 Alkaline Phosphatase 100 Troponin I High Sens 20.4 H B-Natriuretic Peptide 1509 H Total Protein 6.5 Albumin 3.3 L Urine Color Yellow Urine Appearance Clear Urine pH 5.5 Ur Specific [place] 1.010 Urine Protein 100 (2+) H Urine Glucose (UA) 500 H Urine Ketones Negative Urine Blood Negative Urine Nitrite Negative Ur Leukocyte Esterase Negative Urine RBC 0-2 Urine WBC 0-5 Ur Squamous Epith Cells 3-5 Urine Bacteria None Seen Hyaline Casts 0-2 Urine Opiates Screen Not Detected Ur Buprenorphine Scrn Not Detected Ur Oxycodone Screen Not Detected Urine Methadone Screen Not Detected Urine Fentanyl Screen Not Detected Ur Barbiturates Screen Not Detected Ur Phencyclidine Scrn Not Detected Ur Amphetamines Screen Not Detected U Benzodiazepines Scrn Not Detected Urine Cocaine Screen Not Detected U Marijuana (THC) Screen POSITIVE H 05/10/24 13:04 MCV MCH MCHC RDW Plt Count MPV Immature Gran % (Auto) Neut % (Auto) Lymph % (Auto) [place] % (Auto) Eos % (Auto) Baso % (Auto) Lymph # (Auto) [place] # (Auto) Eos # (Auto) Baso # (Auto) Abs Immat Gran (auto) Absolute Neuts (auto) Absolute Nucleated RBC Nucleated RBC % (auto) O2 Saturation 88.0 ABG pH at Pt Temp 7.43 ABG pCO2 at Pt Temp 30 L ABG pO2 at Pt Temp 60 L ABG HCO3 20 L ABG Base Excess (Actual) -2.5 Anion Gap Estim Creat Clear Calc Estimated GFR Random Glucose Calcium Total Bilirubin AST ALT Alkaline Phosphatase Troponin I High Sens B-Natriuretic Peptide Total Protein Albumin Urine Color Urine Appearance Urine pH Ur Specific [place] Urine Protein Urine Glucose (UA) Urine Ketones Urine Blood Urine Nitrite Ur Leukocyte Esterase Urine RBC Urine WBC Ur Squamous Epith Cells Urine Bacteria Hyaline Casts Urine Opiates Screen Ur Buprenorphine Scrn Ur Oxycodone Screen Urine Methadone Screen Urine Fentanyl Screen Ur Barbiturates Screen Ur Phencyclidine Scrn Ur Amphetamines Screen U Benzodiazepines Scrn Urine Cocaine Screen U Marijuana (THC) Screen Imaging Radiologist's Impressions: Impressions Chest X-Ray 05/10/24 11:31 IMPRESSION: Increased diffuse interstitial opacities, bibasilar airspace disease and small bilateral pleural effusions. This study was presented today 05/10/2024 for interpretation. Stat results provided at this time as requested by referring provider. Electronically signed by: Leslie Pelletier MD 05/10/2024 12:58 PM EST RP Assessment and Plan (1) Acute hypoxic respiratory failure: Status: Acute (2) Acute exacerbation of CHF (congestive heart failure): Status: Acute (3) CKD (chronic kidney disease) stage 3, GFR 30-59 ml/min: Qualifiers: Chronic kidney disease stage 3 subtype: stage 3a (GFR 45-59) Qualified Code(s): N18.31 - Chronic kidney disease, stage 3a Status: Chronic (4) Tobacco abuse: Status: Chronic Plan Patient is a 78-year-old female past medical history significant for COPD (smokes 1.5 ppd), IDDM, CKD 3, PAD, major depressive disorder, CAD, GERD, hypertension, hiatal hernia, carotid artery occlusion and recent admission to [facility] for hallucinations, who presented to the ED today with shortness of breath x2 days. She called EMS and her oxygen saturation was 88% when they arrived. They gave her a DuoNeb and started her on 2 L of oxygen, with some improvement of O2 sat however she reports that she is not feeling any better. CXR in ED with increase diffuse interstitial opacities with small bilateral pleural effusions. BNP elevated at 1509. Given lack of improvement with solumedrol and duonebs and pt not wheezing on exam COPD exacerbation less likely. Ddx: CHF exacerbation, pneumonia, COPD exacerbation Acute hypoxic respiratory failure, multifocal pneumonia versus acute CHF exacerbation - tachycardia and tachypnea likely due to albuterol and metoprolol, no leukocytosis - no sepsis, will order lactic acid - BNP elevated at 1509 - CXR with increased diffuse interstitial opacities with small bilateral pleural effusions, ?pneumonia - given IV lasix 20mg in ED, will continue 20mg QD - start ceftriaxone and doxycycline for coverage for possible pneumonia - continue duonebs Q4H while awake - echocardiogram - tessalon TID PRN for cough tobacco abuse - smoking cessation discussed, pt declined nicotine patch IDDM - diabetic diet - POCs - SSI - Lantus 5U QHS - hold tradjenta, farxiga, nateglinide and metformin CKD3 - no acute LAURO PAD/CAD - continue ASA, atorvastatin GERD - continue omeprazole HTN - continue amlodipine, lisinopril, and metoprolol Mood disorder/dementia - continue risperidone, nortriptyline, donepezil Full code VTE prophylaxis: Lovenox Patient with acute CHF exacerbation and possible acute COPD exacerbation with new O2 requirement requiring admission for IV steroids and breathing treatments for at least 2 midnights stay. Quality Stroke Does the patient have a stroke diagnosis?: No VTE Prior VTE?: No VTE Risk Level:: Medical - moderate - high VTE Device Contraindication: Treatment Not Indicated VTE Drug Contraindication: N/A - Med Ordered
[2024-05-10 13:44] LABS: ABG Refer to POC result
--- NOTE | 2024-05-10 14:33 | PHA.MEDREC ---
Pharmacy Consult ? Medication Reconciliation Pharmacy has completed the medication reconciliation. Confirmed medications with patient. Patient confirmed their Lantus insulin injecting 12 units at bedtime. She also confirmed her Dr took her off the Metformin 500mg tab today due to her sugar levels being high. She states she took her morning medications this morning.
[2024-05-10] MEDS: Enoxaparin Sodium 40 MG/0.4 ML SYRINGE SUBCUT (14:57)
[2024-05-10] MEDS: cefTRIAXone sodium 1 GM VIAL IVPUSH (14:57)
--- NOTE | 2024-05-10 15:03 | PHA.MEDREC ---
Addendum entered by Leny Sheffield RPh 05/10/24 15:29: Med rec was reviewed by Porsha. Original Note: Pharmacy Consult ? Medication Reconciliation Confirmed medications with patient. Patient confirmed their Lantus insulin injecting 12 units at bedtime. She also confirmed her Dr took her off the Metformin 500mg tab today. She states she took her morning medications this morning.
--- NOTE | 2024-05-10 15:38 | PC.NURSE ---
patient resting quietly in bed, patient states she is feeling better have the magnesium infusion. patient appears to be more comfortable, resting quietly on 4lNC. patient to be admitted.
[2024-05-10 15:45] LABS: Lactic Acid 1.6 mmol/L (0.5-2.0)
[2024-05-10 17:12] LABS: Glucose, Whole Blood 142 mg/dL (60-115)
--- NOTE | 2024-05-10 17:14 | PC.NURSE ---
transferred from ED 5, reports feeling better , assisted to bathroom, POC checked
--- NOTE | 2024-05-10 19:00 | PC.NURSE ---
Assumed care of pt.
[2024-05-10] MEDS: Albuterol/Iprat 2.5/0.5MG 3 ML AMPUL.NEB INHALE (19:16)
[2024-05-10 20:24] LABS: Glucose, Whole Blood 229 mg/dL (60-115)
[2024-05-10] MEDS: Insulin Glargine,Hum.rec.anlog 100 UNIT/ML 10 ML VIAL SUBCUT (20:54)
[2024-05-10] MEDS: Insulin Lispro 100 UNIT/ML 3 ML VIAL SUBCUT (20:54)
[2024-05-10] MEDS: Melatonin 3 MG TABLET 6 MG PO (20:55)
[2024-05-10] MEDS: Acetaminophen 325 MG TABLET 650 MG PO (20:56)
[2024-05-10] MEDS: Doxycycline Hyclate 100 MG in 0.9 % Sodium Chloride 250 ML 166.67 MG IV (21:30)
--- NOTE | 2024-05-10 23:25 | PC.NURSE ---
Pt tolerating O2 @ 2L via NC with sats as documented.
[2024-05-11] VITALS (16 sets, daily range): BP systolic 121–152; BP diastolic 58–79; PULSE 83–112; RESP 12–24; TEMP 36.1–36.5; O2SAT 90–100; BMI 22.1
[2024-05-11 05:57] LABS: Basophils Percent Auto 0.1 % (0-2); Hematocrit 27.5 % (37.0-47.0); Hemoglobin 9.4 g/dl (12.0-16.0); Imm Gran Abs Auto 0.03 X10*3/uL (0.00-0.03); Imm Gran Pct Auto 0.4 % (0.0-0.4); Lymphocytes Absolute Auto 0.5 X10*3/uL (1.2-4.9); MANUAL DIFF FLAG SCAN; Mean Corpuscular HGB Conc 34.2 g/dl (31.0-35.0); Mean Corpuscular Hemoglobin 29.9 pg (27.0-33.0); Mean Corpuscular Volume 87.6 fL (80.0-98.0); Mean Platelet Volume 10.3 fL (9.4-12.3); Monocytes Absolute Auto 0.2 X10*3/uL (0.1-1.2); Monocytes Percent Auto 2.9 % (2-11); Neutrophils Absolute Auto 6.8 x10*3/uL (2.0-8.3); Neutrophils Percent Auto 90.6 % (45-73); Platelet Count 220 X10*3/uL (160-400); Red Blood Count 3.14 X10*6/uL (4.20-5.50); Red Cell Distribution Width 15.4 % (11.0-16.0); SCAN SMEAR FLAG 1; White Blood Count 7.5 X10*3/uL (4.8-10.8)
[2024-05-11 06:13] LABS: Anion Gap 15 (12-20); Blood Urea Nitrogen 15 mg/dL (9-16); Carbon Dioxide 17 mmol/L (22-29); Chloride 107 mmol/L (96-108); Creatinine Clr Calc Pharmacy 26.4; Estimated Glomerular Filt Rate 37; Glucose Random 126 mg/dL (60-115); Potassium 3.9 mmol/L (3.3-5.1); Sodium 135 mmol/L (135-145)
[2024-05-11 06:18] LABS: B Type Natriuretic Peptide 1601 pg/mL (<100)
[2024-05-11 06:21] LABS: SLIDE REVIEW VERIFIED
--- NOTE | 2024-05-11 07:00 | CA_ITS ---
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 Severely reduced LV ejection fraction of 25-30% with underlying regional wall motion abnormalities suggestive of ischemic cardiomyopathy 2. [id number] mitral regurgitation 3. Normal RV systolic pressure 4. No gross pericardial effusion Findings Procedure Information Contrast agent, definity, is being given per protocol without apparent complications. Left Ventricle The left ventricular systolic function is severely decreased. The visually estimated ejection fraction is between 25-30%. Diastolic function is indeterminate on the basis of available data. Wall Motion Rest Echo Findings The anterior wall, entire lateral wall, the apex, basal anteroseptal, and mid anteroseptal segments are hypokinetic. The inferoseptal wall, inferior wall, and apical septum segment are akinetic. Right Ventricle Normal right ventricular cavity size and systolic function. Atria The left atrium is mildly dilated. There is lipomatous hypertrophy of the interatrial septum. There is no evidence of interatrial shunt. The right atrium is normal in size. Aortic Valve The aortic valve was not well visualized. There is no aortic valve stenosis. There is no aortic valve regurgitation. Mitral Valve There is mild anterior and posterior mitral leaflet thickening. There is mild to moderate mitral valve regurgitation. There is no mitral valve stenosis. Pulmonic Valve The pulmonic valve is likely normal. There is trace pulmonic valve regurgitation. Tricuspid Valve Normal tricuspid valve structure. There is mild tricuspid valve regurgitation. The right ventricular systolic pressure is normal. The right ventricular systolic pressure is 23 mmHg. Normal right atrial pressure. There is no evidence of pulmonary hypertension. Great Vessels The pulmonary artery was not well visualized. There is no dilatation of the ascending aorta measuring 2.90 cm. Venous The inferior vena cava is normal in size and collapses greater than 50% with inspiration. Pericardium/Pleural There is no evidence of pericardial effusion. Prior Study Comparison No prior study available for comparison. Measurements 2D Linear Measurements IVSd: 1.13 0.6-0.9/0.6-1.0 cm LVIDd: 4.90 3.9-5.3/4.2-5.9 cm LVIDd Index: 3.20 2.4-3.2/2.2-3.1 cm/m2 LVIDs: 3.98 2.0-3.6 cm LVPWd: 1.07 0.7-1.1 cm LA Diam: 3.70 2.7-3.8/3.0-4.0 cm LAIDs Index: 2.42 1.5-2.3 cm/m2 LV Mass: 249.87 67-162/88-224 g LV Mass Index: 163.32 43-95/49-115 g/m2 LVOT Diam: 2.00 3.0+(-)1.3 cm 2D Systolic Function EF 4C: 29.00 >55% EF 2C: 27.40 >55% EF BiP: 27.40 >55% Mitral Valve MV Pk E: 1.43 MV Decel Time: 134.00 E'Lateral: 10.70 E'Medial: 6.64 E/E' Med: 21.50 E/E' Lat: 13.40 PHT: 39.00 MVA PHT: 5.64 Decel [place]: 10.64 Aortic Valve AoV Pk Jewel: 1.79 AoV Mn Jewel: 1.31 AoV VTI: 0.45 AoV Pk Grad: 13.00 Aov Mn Grad: 8.00 TALIA Cont.VTI: 1.47 LVOT LVOT Pk Jewel: 0.86 LVOT Mn Jewel: 0.58 LVOT VTI: 0.21 LVOT Pk Grad: 3.00 LVOT Mn Grad: 2.00 LVOT Diam: 2.00 LVOT Area: 3.14 Diastolic Function MV Pk E: 1.43 E'Medial: 6.64 E/E' Med: 21.50 E' Laterial: 10.70 E/E' Lat: 13.40 Right Ventricle TAPSE (mm): 26.90 Tricuspid Valve TR Pk Jewel: 2.24 TR Pk Grad: 20.00 RA Press: 3.00 RVSP: 23.00 Great Vessels Aorta Sinus of Valsalva: 3.60 2.0-3.5 cm Ao Asc: 2.90 2.1-3.4 cm Pulmonary Valve PV Pk Jewel: 0.97 Peak PV Grad: 4.00 Updated in Other Vendor System with Status of Final Santosh Sy MD electronically signed on 05/11/2024 12:29:55 PM with status of Final
[2024-05-11 07:20] LABS: COVID-19 Test Negative (Negative); IDNOW Serial# 6674DD1D
[2024-05-11 07:22] LABS: Glucose, Whole Blood 128 mg/dL (60-115)
--- NOTE | 2024-05-11 08:09 | PC.NURSE ---
Patient having bedside echo
[2024-05-11] MEDS: Furosemide 20 MG/2 ML VIAL IVPUSH ×2 (08:39→17:07)
[2024-05-11] MEDS: cefTRIAXone sodium 1 GM VIAL IVPUSH (08:42)
[2024-05-11] MEDS: Doxycycline Hyclate 100 MG in 0.9 % Sodium Chloride 250 ML 166.67 MG IV (08:47)
[2024-05-11 09:32] LABS: Adenovirus PCR Not Detected (Not Detect.); Bordetella parapertussis PCR Not Detected (Not Detect.); Bordetella pertussis PCR Not Detected (Not Detect.); Chlamydia pneumoniae PCR Not Detected (Not Detect.); Coronavirus 229E PCR Not Detected (Not Detect.); Coronavirus HKU1 PCR Not Detected (Not Detect.); Coronavirus NL63 PCR Not Detected (Not Detect.); Coronavirus OC43 PCR Not Detected (Not Detect.); Human metapneumovirus PCR Not Detected (Not Detect.); Influenza A PCR Not Detected (Not Detect.); Influenza B PCR Not Detected (Not Detect.); Mycoplasma pneumoniae PCR Not Detected (Not Detect.); Parainfluenza 1 PCR Not Detected (Not Detect.); Parainfluenza 2 PCR Not Detected (Not Detect.); Parainfluenza 3 PCR Not Detected (Not Detect.); Parainfluenza 4 PCR Not Detected (Not Detect.); RSV PCR Not Detected (Not Detect.); Rhino/Enterovirus PCR Not Detected (Not Detect.)
--- NOTE | 2024-05-11 10:46 | MHC.CM.PN ---
IMM 05/11/24, Pt lives alone, she was due to start home care services today from [facility], She is active with [facility] for daily nurse visits to give her medications. HCP is on file, and confirmed, her dtr Marian. For DME, she has walker, cane, walker with seat, she is waiting for grab bars to be put in her bathroom, tub bench. For transportation home, she uses [facility]. Pt was inpt in [facility] 3 weeks ago. DCP: home, resume services. CM to follow for DC needs.
[2024-05-11 10:47] LABS: SARS-CoV-2 PCR Not Detected (Not Detect.)
[2024-05-11 11:32] LABS: Glucose, Whole Blood 195 mg/dL (60-115)
[2024-05-11] MEDS: Albuterol/Iprat 2.5/0.5MG 3 ML AMPUL.NEB INHALE ×3 (11:56→19:18)
[2024-05-11] MEDS: Insulin Lispro 100 UNIT/ML 3 ML VIAL SUBCUT ×2 (11:56→16:01)
[2024-05-11] MEDS: Metoprolol Tartrate 100 MG TABLET 200 MG PO ×2 (12:33→20:38)
[2024-05-11] MEDS: risperiDONE 0.5 MG TABLET PO ×2 (12:33→20:39)
[2024-05-11] MEDS: Omeprazole 40 MG CAPSULE.DR PO (12:33)
[2024-05-11] MEDS: Aspirin Enteric Coated 81 MG TABLET.DR PO (12:33)
--- NOTE | 2024-05-11 12:42 | PM.CNCAR ---
History of Present Illness History of Present Illness Date of Service: 05/11/24 Requesting physician: Maurice Bradley Consult reason: congestive heart failure Chief complaint: resp failure, CHF exacerbation, ?pneumonia Narrative: I was consulted to see Yaneth in cardiology consultation today for new onset worsening shortness of breath. Patient says he is unusual state of health unusually functional and active at home limited with some shortness of breath related to her COPD. She has been trying to quit smoking. However the last 3 days she has been having progressively increasing exertional shortness of breath with minimal exertion felt really bad. She also was having trouble breathing at nighttime when she would lay flat. She had no associated chest pain. No associated palpitations. She has had intermittent episodes of leg edema but no significant worsening leg edema or abdominal distention since presentation. No prolonged palpitation or irregular heartbeat. No lightheadedness, syncope. She has never had any cardiac issues in the past but has extensive vascular disease. Review of Systems Constitutional: Constitutional: Reports no additional constitutional complaints Eyes: Eyes: Reports no additional eye complaints Cardiovascular: Cardiovascular: Denies chest pain, Denies leg edema, Denies lightheadedness, Denies Loss of Consciousness, Denies palpitations, Reports dyspnea on exertion and Reports orthopnea Respiratory: Respiratory: Reports no additional respiratory complaints, Denies cough, Reports dyspnea on exertion and Denies wheezing Genitourinary: Genitourinary: Denies no additional female genitourinary complaints Musculoskeletal: Musculoskeletal: Reports no additional musculoskeletal complaints Psychiatric: Psychiatric: Reports no additional psychiatric complaints Endocrine: Endocrine: Denies palpitations Allergic/Immunologic: Allergic/Immunologic: Denies wheezing PMF Past Medical History Medical History CKD (chronic kidney disease) stage 3, GFR 30-59 ml/min PAD (peripheral artery disease) Diabetic ketoacidosis Major depressive disorder, recurrent, moderate Adjustment disorder CAD (coronary artery disease) GERD (gastroesophageal reflux disease) HTN (hypertension) Carotid artery occlusion Diabetes Hiatal hernia GERD (gastroesophageal reflux disease) Family History Family History Father No problems noted. Mother No problems noted. Surgical History Surgical History History of esophagogastroduodenoscopy (EGD) Social History Social History Household Members: None Housing: Apartment Do you presently have visiting nurse or other home services: Yes Alcohol intake: never Patient Tobacco Use Status: Former Tobacco user Tobacco use type: Cigarette Cigarette Packs Per Day: 1.5 Cigarettes Per Day: 30.0 Years Smoked: 40 Patient Interested in Nicotine Replacement: No Use of substances other than those prescribed or required for medical reasons: Yes Substance Use Type: Marijuana Last Used Substance: Unknown Have you been hit, kicked, punched, or otherwise hurt by someone within the past year? If so, by whom?: No Do you feel safe in your current relationship?: No Current Relationship Is there a partner from a previous relationship who is making you feel unsafe now?: No Are you made to feel afraid or neglected: No Advance Directives: Yes Advance Directives on File: Yes Advance Directives Date on File: 01/14/23 Do you have a plan to hurt others: No Plan Recently lost weight without trying: Yes How much weight loss: Unsure Patient : No service: No Current occupational status: retired Sexual orientation: Straight/Heterosexual Meds Allergies Allergy/AdvReac Type Severity Reaction Status Date / Time silver Allergy Unknown SKIN TEARS Verified 05/10/24 10:54 [From [facility]ESH] TAPE,PAPER Allergy Mild Itching Uncoded 05/10/24 10:54 Active Medications: Current Medications Acetaminophen (Acetaminophen 325 Mg Tablet) 650 mg PO Q6H PRN PRN Reason: Pain, Mild (Pain Scale 1-3), fever or headache Last Admin: 05/10/24 20:56 Dose: 650 mg Albuterol/Ipratropium (Albuterol/Iprat 2.5/0.5mg 3 Ml Ampul.Neb) 3 ml INHALE RQ4H WHILE AWAKE [facility] Last Admin: 05/11/24 11:56 Dose: 3 ml Aspirin (Aspirin Enteric Coated 81 Mg Tablet.Dr) 81 mg PO DAILY EMM[facility]UEL Last Admin: 05/11/24 12:33 Dose: 81 mg Atorvastatin Calcium (Atorvastatin Calcium 40 Mg Tablet) 40 mg PO BEDTIME [facility] Benzonatate (Benzonatate 100 Mg Capsule) 100 mg PO TID PRN PRN Reason: Cough Calcium Carbonate (Calcium Carbonate 750 Mg Tab.Chew) 750 mg PO Q4H PRN PRN Reason: Heartburn Ceftriaxone Sodium (Ceftriaxone Sodium 1 Gm Vial) 1 gm IVPUSH DAILY [facility] Last Admin: 05/11/24 08:42 Dose: 1 gm Donepezil HCl (Donepezil Hcl 5 Mg Tablet) 5 mg PO BEDTIME EMM[facility] Enoxaparin Sodium (Enoxaparin Sodium 40 Mg/0.4 Ml Syringe) 40 mg SUBCUT Q24H [facility] Last Admin: 05/10/24 14:57 Dose: 40 mg Furosemide (Furosemide 20 Mg/2 Ml Vial) 20 mg IVPUSH DAILY [facility]; Protocol Last Admin: 05/11/24 08:39 Dose: 20 mg Glucose (Glucose Gel 15 Gm Gel..Gram.) 15 gm PO Q15M PRN; Protocol PRN Reason: per Hypoglycemia Standing Ord. Doxycycline Hyclate 100 mg/ (Sodium Chloride) 250 mls @ 166.67 mls/hr IV BID [facility] Last Infusion: 05/11/24 11:07 Dose: Infused Dextrose (D10) 250 mls @ 750 mls/hr IV Q15M PRN; Protocol PRN Reason: per Hypoglycemia Standing Ord. Insulin Glargine (Insulin Glargine,Hum.Rec.Anlog 100 Unit/Ml 10 Ml Vial) 5 unit SUBCUT BEDTIME [facility] Last Admin: 05/10/24 20:54 Dose: 5 unit Insulin Human Lispro (Insulin Lispro 100 Unit/Ml 3 Ml Vial) 0 unit SUBCUT QIDACHS [facility]; Protocol Last Admin: 05/11/24 11:56 Dose: 2 unit Magnesium Hydroxide (Milk Of Magnesia 30 Ml Oral.Susp) 30 ml PO DAILY PRN PRN Reason: Constipation Melatonin (Melatonin 3 Mg Tablet) 6 mg PO BEDTIME PRN PRN Reason: Insomnia Last Admin: 05/10/24 20:55 Dose: 6 mg Metoprolol Tartrate (Metoprolol Tartrate 100 Mg Tablet) 200 mg PO BID [facility]; Protocol Last Admin: 05/11/24 12:33 Dose: 200 mg Omeprazole (Omeprazole 40 Mg Capsule.Dr) 40 mg PO DAILY@0630 [facility] Last Admin: 05/11/24 12:33 Dose: 40 mg Ondansetron HCl (Ondansetron Hcl 4 Mg/2 Ml Vial) 4 mg IVPUSH Q8H PRN PRN Reason: Nausea and Vomiting Oxycodone HCl (Oxycodone Hcl Immed Release 5 Mg Tablet) 5 mg PO Q6H PRN PRN Reason: Pain, Moderate(Pain Scale 4-6) Risperidone (Risperidone 0.5 Mg Tablet) 0.5 mg PO BID [facility] Last Admin: 05/11/24 12:33 Dose: 0.5 mg Sodium Chloride (0.9 % Sodium Chloride Flush 3 Ml Syringe) 3 ml IVFLUSH QSHIFT [facility] Last Admin: 05/11/24 09:31 Dose: Not Given Trazodone HCl (Trazodone Hcl 50 Mg Tablet) 50 mg PO BEDTIME PRN PRN Reason: Insomnia Home Medications ?Medication ?Instructions ?Recorded ?Confirmed ?Last Taken ?Type dapagliflozin propanediol 5 mg 5 mg PO DAILY 07/31/23 05/10/24 05/10/24 History tablet (Farxiga) fluticasone furoate 100 1 ea inhalation DAILY 04/16/24 05/10/24 05/10/24 History mcg-vilanterol 25 mcg/dose inhalation powder (Breo Ellipta) insulin glargine 100 unit/mL 12 unit subcut BEDTIME 04/16/24 05/10/24 05/09/24 History subcutaneous solution (Lantus U-100 Insulin) linagliptin 5 mg tablet (Tradjenta) 5 mg PO DAILY 04/16/24 05/10/24 05/10/24 History nateglinide 60 mg tablet 60 mg PO TID 05/10/24 05/10/24 Unknown History nortriptyline 25 mg capsule 25 - 50 mg PO BEDTIME 05/10/24 05/10/24 05/09/24 History Physical Exam Vital Signs: Vital Signs: Last Vital Signs Temp 97.7 F 05/11/24 11:20 Pulse 99 05/11/24 11:56 Resp 18 05/11/24 11:56 BP 136/62 05/11/24 12:33 Pulse Ox 97 05/11/24 11:20 O2 Del Method Nasal Cannula 05/11/24 11:20 O2 Flow Rate 3 05/11/24 11:20 Oxygen Flow Rate 2 05/10/24 10:50 BMI result Body Mass Index 23.2 Const: General: cooperative, comfortable, alert and awake Nutritional Appearance: thin Orientation/consciousness: patient oriented x3 HEENT: Head: Yes normocephalic and Yes atraumatic Neck: Neck: Yes trachea midline, Yes supple and Yes no JVD Resp: Effort & Inspection: normal respiratory effort Auscultation: crackles on the right at the base and diminished lung sounds Cardio: Jugular venous distension: no JVD Rate: regular rate Rhythm: regular rhythm Heart sounds: S1 normal heart sound present, S2 normal heart sound present, no click, no gallops and no murmurs GI: Auscultation: normal bowel sounds Skin: General skin exam: no rashes or lesions noted Neuro: General: patient oriented x3 and no focal motor deficits Extrem: General: Yes no clubbing, cyanosis or edema Objective Labs and Meds 05/11/24 05:41 05/11/24 05:41 Lab results: Laboratory Results - last 24 hr 05/10/24 05/10/24 05/10/24 13:04 15:17 15:30 WBC RBC Hgb Hct MCV MCH MCHC RDW Plt Count MPV Immature Gran % (Auto) Neut % (Auto) Lymph % (Auto) [place] % (Auto) Eos % (Auto) Baso % (Auto) Lymph # (Auto) [place] # (Auto) Eos # (Auto) Baso # (Auto) Abs Immat Gran (auto) Absolute Neuts (auto) Absolute Nucleated RBC Nucleated RBC % (auto) Smear Tech's Comments O2 Saturation 88.0 ABG pH at Pt Temp 7.43 ABG pCO2 at Pt Temp 30 L ABG pO2 at Pt Temp 60 L ABG HCO3 20 L ABG Base Excess (Actual) -2.5 Sodium Potassium Chloride Carbon Dioxide Anion Gap BUN Creatinine Estim Creat Clear Calc Estimated GFR POC Glucose Random Glucose Lactic Acid 1.6 Calcium B-Natriuretic Peptide Respiratory Panel [place] See Note Adenovirus (Rapid PCR) Not Detected B.pert (TEM-PCR) Not Detected B.parapertussis DNA PCR Not Detected C. pneumoniae DNA (PCR) Not Detected Coronavirus OC43 (PCR) Not Detected Coronavirus HKU1 (PCR) Not Detected Coronavirus 229E (PCR) Not Detected COVID-19 (INGE) COVID-19 Clin Com Coronavirus NL63 (PCR) Not Detected Human Metapneumovir PCR Not Detected Influenza A (RT-PCR) Not Detected Influenza B (RT-PCR) Not Detected M. pneumoniae (PCR) Not Detected Parainfluenza 1 (PCR) Not Detected Parainfluenza 2 (PCR) Not Detected Parainfluenza 3 (PCR) Not Detected Parainfluenza 4 (PCR) Not Detected RSV (PCR) Not Detected Entero/Rhino (PCR) Not Detected SARS-CoV-2 RNA (RT-PCR) Not Detected 05/10/24 05/10/24 05/11/24 17:01 20:03 05:41 WBC 7.5 RBC 3.14 L Hgb 9.4 L Hct 27.5 L D MCV 87.6 MCH 29.9 MCHC 34.2 RDW 15.4 Plt Count 220 MPV 10.3 Immature Gran % (Auto) 0.4 Neut % (Auto) 90.6 H Lymph % (Auto) 6.0 L [place] % (Auto) 2.9 Eos % (Auto) 0.0 Baso % (Auto) 0.1 Lymph # (Auto) 0.5 L [place] # (Auto) 0.2 Eos # (Auto) 0.0 Baso # (Auto) 0.0 Abs Immat Gran (auto) 0.03 Absolute Neuts (auto) 6.8 Absolute Nucleated RBC 0.000 Nucleated RBC % (auto) 0.0 Smear Tech's Comments VERIFIED O2 Saturation ABG pH at Pt Temp ABG pCO2 at Pt Temp ABG pO2 at Pt Temp ABG HCO3 ABG Base Excess (Actual) Sodium 135 Potassium 3.9 Chloride 107 Carbon Dioxide 17 L Anion Gap 15 BUN 15 Creatinine 1.37 Estim Creat Clear Calc 26.4 Estimated GFR 37 POC Glucose 142 H 229 H Random Glucose 126 H Lactic Acid Calcium 8.0 L D B-Natriuretic Peptide 1601 H Respiratory Panel [place] Adenovirus (Rapid PCR) B.pert (TEM-PCR) B.parapertussis DNA PCR C. pneumoniae DNA (PCR) Coronavirus OC43 (PCR) Coronavirus HKU1 (PCR) Coronavirus 229E (PCR) COVID-19 (INGE) COVID-19 Clin Com Coronavirus NL63 (PCR) Human Metapneumovir PCR Influenza A (RT-PCR) Influenza B (RT-PCR) M. pneumoniae (PCR) Parainfluenza 1 (PCR) Parainfluenza 2 (PCR) Parainfluenza 3 (PCR) Parainfluenza 4 (PCR) RSV (PCR) Entero/Rhino (PCR) SARS-CoV-2 RNA (RT-PCR) 05/11/24 05/11/24 05/11/24 06:47 07:14 11:23 WBC RBC Hgb Hct MCV MCH MCHC RDW Plt Count MPV Immature Gran % (Auto) Neut % (Auto) Lymph % (Auto) [place] % (Auto) Eos % (Auto) Baso % (Auto) Lymph # (Auto) [place] # (Auto) Eos # (Auto) Baso # (Auto) Abs Immat Gran (auto) Absolute Neuts (auto) Absolute Nucleated RBC Nucleated RBC % (auto) Smear Tech's Comments O2 Saturation ABG pH at Pt Temp ABG pCO2 at Pt Temp ABG pO2 at Pt Temp ABG HCO3 ABG Base Excess (Actual) Sodium Potassium Chloride Carbon Dioxide Anion Gap BUN Creatinine Estim Creat Clear Calc Estimated GFR POC Glucose 128 H 195 H Random Glucose Lactic Acid Calcium B-Natriuretic Peptide Respiratory Panel [place] Adenovirus (Rapid PCR) B.pert (TEM-PCR) B.parapertussis DNA PCR C. pneumoniae DNA (PCR) Coronavirus OC43 (PCR) Coronavirus HKU1 (PCR) Coronavirus 229E (PCR) COVID-19 (INGE) Negative COVID-19 Clin Com See Note Coronavirus NL63 (PCR) Human Metapneumovir PCR Influenza A (RT-PCR) Influenza B (RT-PCR) M. pneumoniae (PCR) Parainfluenza 1 (PCR) Parainfluenza 2 (PCR) Parainfluenza 3 (PCR) Parainfluenza 4 (PCR) RSV (PCR) Entero/Rhino (PCR) SARS-CoV-2 RNA (RT-PCR) Imaging Radiologist's impression: Impressions Chest X-Ray 05/10/24 11:31 IMPRESSION: Increased diffuse interstitial opacities, bibasilar airspace disease and small bilateral pleural effusions. This study was presented today 05/10/2024 for interpretation. Stat results provided at this time as requested by referring provider. Electronically signed by: Leslie Pelletier MD 05/10/2024 12:58 PM [facility] Assessment and Plan (1) Acute exacerbation of CHF (congestive heart failure): Status: Acute Patient presents with acute hypoxemic respiratory failure with progressive symptoms suggestive of congestive heart failure. Clinically appears to be mildly fluid overloaded. Continue IV diuresis with Lasix 20 mg IV b.i.d.. Creatinine is gradually risen. Will continue monitor closely. Strict intake and output chart needs to be pursued. Continue supportive care and continue treatment for COPD. Continue oxygen therapy. LV ejection fraction markedly reduced and suggestive of underlying significant coronary disease. Would start low-dose vasodilators therapy with valsartan as tolerated. Follow renal function closely. Will eventually require ischemic workup most likely cardiac catheterization to evaluate for underlying coronary artery disease. Management was discussed with him in details. Will follow with you Procedures Date of Service Date of Service: 05/11/24
--- NOTE | 2024-05-11 13:30 | PM.CNNEP ---
History of Present Illness Reason for Consult Consult date: 05/11/24 Chief Complaint Chief complaint: resp failure, CHF exacerbation, ?pneumonia History of Present Illness Narrative: 78 y/o female with a medical history of CKD3, CAD, PAD, DMII, HTN, tobacco use, GERD. 05/10 admitted for shortness of breath x2 days, being treated for CHF exacerbation vs PNA She is seen by Dr Sam, nephrology, outpatient for management of CKD has right EFRAIN by doppler study, hx of proteinuria and osteomyelitis of great toe Her creatinine on 05/10 was 1.13, 11.6 is 1.37, this is around her baseline she is receiving IVP lasix for management of fluid overload home lisinopril being held while on diuretic therapy Patient states her breathing has improved since admission, though remains dyspneic with exertion she denies abdominal pain, chest pain, dizziness she denies flank pain, dysuria, blood in urine she is Review of Systems Constitutional: Reports fatigue, Denies headache(s) and Reports lethargy Denies dizziness and Denies headache(s) Cardiovascular: Denies chest pain, Denies leg edema, Denies lightheadedness, Denies dyspnea, Reports dyspnea on exertion and Denies orthopnea Respiratory: Reports cough, Denies dyspnea and Reports dyspnea on exertion Gastrointestinal: Denies abdominal pain, Denies constipation, Denies diarrhea, Denies nausea and Denies vomiting Genitourinary: Denies hematuria, Denies difficulty voiding, Denies flank pain, Denies urinary incontinence and Reports urinary hesitancy Musculoskeletal: Denies arthralgias Skin/Breast: Denies rash Denies dizziness and Denies headache(s) Endocrine: Reports fatigue PMFSH Past Medical History Medical History CKD (chronic kidney disease) stage 3, GFR 30-59 ml/min PAD (peripheral artery disease) Diabetic ketoacidosis Major depressive disorder, recurrent, moderate Adjustment disorder CAD (coronary artery disease) GERD (gastroesophageal reflux disease) HTN (hypertension) Carotid artery occlusion Diabetes Hiatal hernia GERD (gastroesophageal reflux disease) Family History Family History Father No problems noted. Mother No problems noted. Surgical History Surgical History History of esophagogastroduodenoscopy (EGD) Social History Social History Household Members: None Housing: Apartment Do you presently have visiting nurse or other home services: Yes Alcohol intake: never Patient Tobacco Use Status: Former Tobacco user Tobacco use type: Cigarette Cigarette Packs Per Day: 1.5 Cigarettes Per Day: 30.0 Years Smoked: 40 Patient Interested in Nicotine Replacement: No Use of substances other than those prescribed or required for medical reasons: Yes Substance Use Type: Marijuana Last Used Substance: Unknown Have you been hit, kicked, punched, or otherwise hurt by someone within the past year? If so, by whom?: No Do you feel safe in your current relationship?: No Current Relationship Is there a partner from a previous relationship who is making you feel unsafe now?: No Are you made to feel afraid or neglected: No Advance Directives: Yes Advance Directives on File: Yes Advance Directives Date on File: 01/14/23 Do you have a plan to hurt others: No Plan Recently lost weight without trying: Yes How much weight loss: Unsure Patient : No service: No Current occupational status: retired Sexual orientation: Straight/Heterosexual Meds Allergies Allergy/AdvReac Type Severity Reaction Status Date / Time silver Allergy Unknown SKIN TEARS Verified 05/10/24 10:54 [From TEGADERM AG MESH] TAPE,PAPER Allergy Mild Itching Uncoded 05/10/24 10:54 Active Medications: Current Medications Acetaminophen (Acetaminophen 325 Mg Tablet) 650 mg PO Q6H PRN PRN Reason: Pain, Mild (Pain Scale 1-3), fever or headache Last Admin: 05/10/24 20:56 Dose: 650 mg Albuterol/Ipratropium (Albuterol/Iprat 2.5/0.5mg 3 Ml Ampul.Neb) 3 ml INHALE RQ4H WHILE AWAKE [facility] Last Admin: 05/11/24 11:56 Dose: 3 ml Aspirin (Aspirin Enteric Coated 81 Mg Tablet.Dr) 81 mg PO DAILY [facility] Last Admin: 05/11/24 12:33 Dose: 81 mg Atorvastatin Calcium (Atorvastatin Calcium 40 Mg Tablet) 40 mg PO BEDTIME [facility] Benzonatate (Benzonatate 100 Mg Capsule) 100 mg PO TID PRN PRN Reason: Cough Calcium Carbonate (Calcium Carbonate 750 Mg Tab.Chew) 750 mg PO Q4H PRN PRN Reason: Heartburn Ceftriaxone Sodium (Ceftriaxone Sodium 1 Gm Vial) 1 gm IVPUSH DAILY [facility] Last Admin: 05/11/24 08:42 Dose: 1 gm Donepezil HCl (Donepezil Hcl 5 Mg Tablet) 5 mg PO BEDTIME [facility] Enoxaparin Sodium (Enoxaparin Sodium 40 Mg/0.4 Ml Syringe) 40 mg SUBCUT Q24H [facility] Last Admin: 05/10/24 14:57 Dose: 40 mg Furosemide (Furosemide 20 Mg/2 Ml Vial) 20 mg IVPUSH BID@0900,1800 [facility]; Protocol Glucose (Glucose Gel 15 Gm Gel..Gram.) 15 gm PO Q15M PRN; Protocol PRN Reason: per Hypoglycemia Standing Ord. Doxycycline Hyclate 100 mg/ (Sodium Chloride) 250 mls @ 166.67 mls/hr IV BID [facility] Last Infusion: 05/11/24 11:07 Dose: Infused Dextrose (D10) 250 mls @ 750 mls/hr IV Q15M PRN; Protocol PRN Reason: per Hypoglycemia Standing Ord. Insulin Glargine (Insulin Glargine,Hum.Rec.Anlog 100 Unit/Ml 10 Ml Vial) 5 unit SUBCUT BEDTIME [facility] Last Admin: 05/10/24 20:54 Dose: 5 unit Insulin Human Lispro (Insulin Lispro 100 Unit/Ml 3 Ml Vial) 0 unit SUBCUT QIDACHS [facility]; Protocol Last Admin: 05/11/24 11:56 Dose: 2 unit Magnesium Hydroxide (Milk Of Magnesia 30 Ml Oral.Susp) 30 ml PO DAILY PRN PRN Reason: Constipation Melatonin (Melatonin 3 Mg Tablet) 6 mg PO BEDTIME PRN PRN Reason: Insomnia Last Admin: 05/10/24 20:55 Dose: 6 mg Metoprolol Tartrate (Metoprolol Tartrate 100 Mg Tablet) 200 mg PO BID [facility]; Protocol Last Admin: 05/11/24 12:33 Dose: 200 mg Omeprazole (Omeprazole 40 Mg Capsule.Dr) 40 mg PO DAILY@0630 [facility] Last Admin: 05/11/24 12:33 Dose: 40 mg Ondansetron HCl (Ondansetron Hcl 4 Mg/2 Ml Vial) 4 mg IVPUSH Q8H PRN PRN Reason: Nausea and Vomiting Oxycodone HCl (Oxycodone Hcl Immed Release 5 Mg Tablet) 5 mg PO Q6H PRN PRN Reason: Pain, Moderate(Pain Scale 4-6) Risperidone (Risperidone 0.5 Mg Tablet) 0.5 mg PO BID [facility] Last Admin: 05/11/24 12:33 Dose: 0.5 mg Sodium Chloride (0.9 % Sodium Chloride Flush 3 Ml Syringe) 3 ml IVFLUSH QSHIFT [facility] Last Admin: 05/11/24 09:31 Dose: Not Given Trazodone HCl (Trazodone Hcl 50 Mg Tablet) 50 mg PO BEDTIME PRN PRN Reason: Insomnia Valsartan (Valsartan 40 Mg Tablet) 40 mg PO BID [facility]; Protocol Home Medications ?Medication ?Instructions ?Recorded ?Confirmed ?Last Taken ?Type dapagliflozin propanediol 5 mg 5 mg PO DAILY 07/31/23 05/10/24 05/10/24 History tablet (Farxiga) fluticasone furoate 100 1 ea inhalation DAILY 04/16/24 05/10/24 05/10/24 History mcg-vilanterol 25 mcg/dose inhalation powder (Breo Ellipta) insulin glargine 100 unit/mL 12 unit subcut BEDTIME 04/16/24 05/10/24 05/09/24 History subcutaneous solution (Lantus U-100 Insulin) linagliptin 5 mg tablet (Tradjenta) 5 mg PO DAILY 04/16/24 05/10/24 05/10/24 History nateglinide 60 mg tablet 60 mg PO TID 05/10/24 05/10/24 Unknown History nortriptyline 25 mg capsule 25 - 50 mg PO BEDTIME 05/10/24 05/10/24 05/09/24 History Physical Exam Vital Signs: Last Vital Signs Temp 97.7 F 05/11/24 11:20 Pulse 99 05/11/24 11:56 Resp 18 05/11/24 11:56 BP 136/62 05/11/24 12:33 Pulse Ox 97 05/11/24 13:42 O2 Del Method Room Air 05/11/24 13:42 O2 Flow Rate 2 05/11/24 12:35 Oxygen Flow Rate 2 05/10/24 10:50 BMI result Body Mass Index 22.1 Const General: no acute distress, alert and awake Resp Effort & Inspection: normal respiratory effort and able to speak in complete sentences Auscultation: clear to auscultation bilaterally Cardio Jugular venous distension: no JVD Rate: regular rate Rhythm: regular rhythm Heart sounds: S1 normal heart sound present and S2 normal heart sound present GI Palpation (GI): Soft to palpation and nontender General: Yes no CVA tenderness Back/Spine/Pelvis Back: no CVA tenderness Skin Lesions: no lesions Rashes: no rashes Results Lab Results 05/11/24 05:41 05/11/24 05:41 Lab results: Chemistry 05/10/24 05/11/24 11:41 05:41 Sodium 136 135 Potassium 4.4 3.9 Carbon Dioxide 21 L 17 L BUN 11 15 Creatinine 1.13 1.37 Calcium 8.9 D 8.0 L D Hematology 05/10/24 05/11/24 11:08 05:41 WBC 10.5 7.5 Hgb 11.5 L 9.4 L Plt Count 249 220 Urinalysis 05/10/24 12:13 Urine Color Yellow Urine Appearance Clear Urine pH 5.[address] 1.010 Urine Protein 100 (2+) H Urine Glucose (UA) 500 H Urine Ketones Negative Urine Blood Negative Urine Nitrite Negative Ur Leukocyte Esterase Negative Urine RBC 0-2 Urine WBC 0-5 Ur Squamous Epith Cells 3-5 Hyaline Casts 0-2 Assessment and Plan (1) CKD (chronic kidney disease) stage 3, GFR 30-59 ml/min: Qualifiers: Chronic kidney disease stage 3 subtype: stage 3a (GFR 45-59) Qualified Code(s): N18.31 - Chronic kidney disease, stage 3a Status: Chronic (2) Acute exacerbation of CHF (congestive heart failure): Qualifiers: Heart failure type: unspecified Qualified Code(s): I50.9 - Heart failure, unspecified Status: Acute Plan Patient with baseline 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 on diuretic therapy for fluid overload/?CHF exacerbation renal function remains at baseline recommend continuing to hold JOSE while on diuretic therapy to prevent LAURO monitor blood pressures closely monitor renal function and electrolytes daily continue supportive care will continue to follow Discussed with Dr Flaco Hester Date of Service Date of Service: 05/11/24
[2024-05-11 15:54] LABS: Glucose, Whole Blood 258 mg/dL (60-115)
[2024-05-11] MEDS: Enoxaparin Sodium 40 MG/0.4 ML SYRINGE SUBCUT (16:01)
[2024-05-11] MEDS: 0.9 % Sodium Chloride Flush 3 ML SYRINGE IVFLUSH ×2 (16:02→20:41)
--- NOTE | 2024-05-11 16:44 | P.PNIM_ITS ---
Subjective Subjective Date of Service: 05/11/24 Interval History: Being followed for shortness of breath. Patient feeling better this morning slept good shortness of breath and bilateral leg edema significantly improved. Complaining of mild shortness of breath mostly with lying, denies chest pain, no palpitations, no headache, no dizziness, no cough, no fevers, no chills, no nausea vomiting or diarrhea. Review of Systems All other symptoms reviewed and are negative. Physical Exam 2 Vital Signs: Vital Signs: Last Vital Signs Temp 96.9 F 05/11/24 15:13 Pulse 88 05/11/24 15:28 Resp 20 05/11/24 15:28 BP 143/65 H 05/11/24 15:13 Pulse Ox 94 05/11/24 15:15 O2 Del Method Room Air 05/11/24 15:15 O2 Flow Rate 2 05/11/24 12:35 Oxygen Flow Rate 2 05/10/24 10:50 BMI result Body Mass Index 22.1 Const: Other: General awake alert x3, resting comfortably in no acute distress. Neck no JVD. CVS regular rate rhythm, Respiratory lungs diminished breath sounds, no wheeze, no rhonchi, right basilar crackle. Gastrointestinal abdomen soft, non tender, bowel sounds audible, Extremities mild left lower extremity ankle edema. Neuro non focal Skin no rash Appropriate affect Objective Data Active Medications Acetaminophen (Acetaminophen 325 Mg Tablet) 650 mg PO Q6H PRN PRN Reason: Pain, Mild (Pain Scale 1-3), fever or headache Last Admin: 05/10/24 20:56 Dose: 650 mg Documented By: GINA Albuterol/Ipratropium (Albuterol/Iprat 2.5/0.5mg 3 Ml Ampul.Neb) 3 ml INHALE RQ4H WHILE AWAKE [facility] Last Admin: 05/11/24 15:28 Dose: 3 ml Documented By: ELENITA Aspirin (Aspirin Enteric Coated 81 Mg Tablet.) 81 mg PO DAILY [facility] Last Admin: 05/11/24 12:33 Dose: 81 mg Documented By: CODY Atorvastatin Calcium (Atorvastatin Calcium 40 Mg Tablet) 40 mg PO BEDTIME [facility] Benzonatate (Benzonatate 100 Mg Capsule) 100 mg PO TID PRN PRN Reason: Cough Calcium Carbonate (Calcium Carbonate 750 Mg Tab.Chew) 750 mg PO Q4H PRN PRN Reason: Heartburn Ceftriaxone Sodium (Ceftriaxone Sodium 1 Gm Vial) 1 gm IVPUSH DAILY [facility] Last Admin: 05/11/24 08:42 Dose: 1 gm Documented By: REJI Donepezil HCl (Donepezil Hcl 5 Mg Tablet) 5 mg PO BEDTIME [facility] Enoxaparin Sodium (Enoxaparin Sodium 40 Mg/0.4 Ml Syringe) 40 mg SUBCUT Q24H [facility] Last Admin: 05/11/24 16:01 Dose: 40 mg Documented By: CODY Furosemide (Furosemide 20 Mg/2 Ml Vial) 20 mg IVPUSH BID@0900,1800 [facility]; Protocol Glucose (Glucose Gel 15 Gm Gel..Gram.) 15 gm PO Q15M PRN; Protocol PRN Reason: per Hypoglycemia Standing Ord. Doxycycline Hyclate 100 mg/ (Sodium Chloride) 250 mls @ 166.67 mls/hr IV BID [facility] Last Infusion: 05/11/24 11:07 Dose: Infused Documented By: CODY Dextrose (D10) 250 mls @ 750 mls/hr IV Q15M PRN; Protocol PRN Reason: per Hypoglycemia Standing Ord. Insulin Glargine (Insulin Glargine,Hum.Rec.Anlog 100 Unit/Ml 10 Ml Vial) 5 unit SUBCUT BEDTIME [facility] Last Admin: 05/10/24 20:54 Dose: 5 unit Documented By: GINA Insulin Human Lispro (Insulin Lispro 100 Unit/Ml 3 Ml Vial) 0 unit SUBCUT QIDACHS [facility]; Protocol Last Admin: 05/11/24 16:01 Dose: 6 unit Documented By: CODY Magnesium Hydroxide (Milk Of Magnesia 30 Ml Oral.Susp) 30 ml PO DAILY PRN PRN Reason: Constipation Melatonin (Melatonin 3 Mg Tablet) 6 mg PO BEDTIME PRN PRN Reason: Insomnia Last Admin: 05/10/24 20:55 Dose: 6 mg Documented By: GINA Metoprolol Tartrate (Metoprolol Tartrate 100 Mg Tablet) 200 mg PO BID [facility]; Protocol Last Admin: 05/11/24 12:33 Dose: 200 mg Documented By: CODY Omeprazole (Omeprazole 40 Mg Capsule.Dr) 40 mg PO DAILY@0630 [facility] Last Admin: 05/11/24 12:33 Dose: 40 mg Documented By: CODY Ondansetron HCl (Ondansetron Hcl 4 Mg/2 Ml Vial) 4 mg IVPUSH Q8H PRN PRN Reason: Nausea and Vomiting Oxycodone HCl (Oxycodone Hcl Immed Release 5 Mg Tablet) 5 mg PO Q6H PRN PRN Reason: Pain, Moderate(Pain Scale 4-6) Risperidone (Risperidone 0.5 Mg Tablet) 0.5 mg PO BID [facility] Last Admin: 05/11/24 12:33 Dose: 0.5 mg Documented By: CODY Sodium Chloride (0.9 % Sodium Chloride Flush 3 Ml Syringe) 3 ml IVFLUSH QSHIFT [facility] Last Admin: 05/11/24 16:02 Dose: 3 ml Documented By: CODY Trazodone HCl (Trazodone Hcl 50 Mg Tablet) 50 mg PO BEDTIME PRN PRN Reason: Insomnia Valsartan (Valsartan 40 Mg Tablet) 40 mg PO BID [facility]; Protocol Labs 05/11/24 05:41 05/11/24 05:41 Labs: Laboratory Results - last 24 hr 05/10/24 05/10/24 05/10/24 15:30 17:01 20:03 MCV MCH MCHC RDW Plt Count MPV Immature Gran % (Auto) Neut % (Auto) Lymph % (Auto) [place] % (Auto) Eos % (Auto) Baso % (Auto) Lymph # (Auto) [place] # (Auto) Eos # (Auto) Baso # (Auto) Abs Immat Gran (auto) Absolute Neuts (auto) Absolute Nucleated RBC Nucleated RBC % (auto) Smear Tech's Comments Anion Gap Estim Creat Clear Calc Estimated GFR POC Glucose 142 H 229 H Random Glucose Calcium B-Natriuretic Peptide Respiratory Panel [place] See Note Adenovirus (Rapid PCR) Not Detected B.pert (TEM-PCR) Not Detected B.parapertussis DNA PCR Not Detected C. pneumoniae DNA (PCR) Not Detected Coronavirus OC43 (PCR) Not Detected Coronavirus HKU1 (PCR) Not Detected Coronavirus 229E (PCR) Not Detected COVID-19 (INGE) COVID-19 Clin Com Coronavirus NL63 (PCR) Not Detected Human Metapneumovir PCR Not Detected Influenza A (RT-PCR) Not Detected Influenza B (RT-PCR) Not Detected M. pneumoniae (PCR) Not Detected Parainfluenza 1 (PCR) Not Detected Parainfluenza 2 (PCR) Not Detected Parainfluenza 3 (PCR) Not Detected Parainfluenza 4 (PCR) Not Detected RSV (PCR) Not Detected Entero/Rhino (PCR) Not Detected SARS-CoV-2 RNA (RT-PCR) Not Detected 05/11/24 05/11/24 05/11/24 05:41 06:47 07:14 MCV 87.6 MCH 29.9 MCHC 34.2 RDW 15.4 Plt Count 220 MPV 10.3 Immature Gran % (Auto) 0.4 Neut % (Auto) 90.6 H Lymph % (Auto) 6.0 L [place] % (Auto) 2.9 Eos % (Auto) 0.0 Baso % (Auto) 0.1 Lymph # (Auto) 0.5 L [place] # (Auto) 0.2 Eos # (Auto) 0.0 Baso # (Auto) 0.0 Abs Immat Gran (auto) 0.03 Absolute Neuts (auto) 6.8 Absolute Nucleated RBC 0.000 Nucleated RBC % (auto) 0.0 Smear Tech's Comments VERIFIED Anion Gap 15 Estim Creat Clear Calc 26.4 Estimated GFR 37 POC Glucose 128 H Random Glucose 126 H Calcium 8.0 L D B-Natriuretic Peptide 1601 H Respiratory Panel [place] Adenovirus (Rapid PCR) B.pert (TEM-PCR) B.parapertussis DNA PCR C. pneumoniae DNA (PCR) Coronavirus OC43 (PCR) Coronavirus HKU1 (PCR) Coronavirus 229E (PCR) COVID-19 (INGE) Negative COVID-19 Clin Com See Note Coronavirus NL63 (PCR) Human Metapneumovir PCR Influenza A (RT-PCR) Influenza B (RT-PCR) M. pneumoniae (PCR) Parainfluenza 1 (PCR) Parainfluenza 2 (PCR) Parainfluenza 3 (PCR) Parainfluenza 4 (PCR) RSV (PCR) Entero/Rhino (PCR) SARS-CoV-2 RNA (RT-PCR) 05/11/24 05/11/24 11:23 15:41 MCV MCH MCHC RDW Plt Count MPV Immature Gran % (Auto) Neut % (Auto) Lymph % (Auto) [place] % (Auto) Eos % (Auto) Baso % (Auto) Lymph # (Auto) [place] # (Auto) Eos # (Auto) Baso # (Auto) Abs Immat Gran (auto) Absolute Neuts (auto) Absolute Nucleated RBC Nucleated RBC % (auto) Smear Tech's Comments Anion Gap Estim Creat Clear Calc Estimated GFR POC Glucose 195 H 258 H Random Glucose Calcium B-Natriuretic Peptide Respiratory Panel [place] Adenovirus (Rapid PCR) B.pert (TEM-PCR) B.parapertussis DNA PCR C. pneumoniae DNA (PCR) Coronavirus OC43 (PCR) Coronavirus HKU1 (PCR) Coronavirus 229E (PCR) COVID-19 (INGE) COVID-19 Clin Com Coronavirus NL63 (PCR) Human Metapneumovir PCR Influenza A (RT-PCR) Influenza B (RT-PCR) M. pneumoniae (PCR) Parainfluenza 1 (PCR) Parainfluenza 2 (PCR) Parainfluenza 3 (PCR) Parainfluenza 4 (PCR) RSV (PCR) Entero/Rhino (PCR) SARS-CoV-2 RNA (RT-PCR) Assessment and Plan (1) Acute exacerbation of CHF (congestive heart failure): Status: Acute (2) Tobacco abuse: Status: Chronic (3) Acute hypoxic respiratory failure: Status: Acute Plan 78-year-old female past medical history significant for COPD (smokes 1.5 ppd), IDDM, CKD 3, PAD, major depressive disorder, CAD, GERD, hypertension, hiatal hernia, carotid artery occlusion and recent admission to [facility] psych for hallucinations, who presented to the ED today with shortness of breath x2 days. She called EMS and her oxygen saturation was 88% when they arrived. They gave her a DuoNeb and started her on 2 L of oxygen, with some improvement of O2 sat however she reports that she is not feeling any better. CXR in ED with increase diffuse interstitial opacities with small bilateral pleural effusions. BNP elevated at 1509. Given lack of improvement with solumedrol and duonebs and pt not wheezing on exam COPD exacerbation less likely. Ddx: CHF exacerbation, pneumonia, COPD exacerbation Acute hypoxic respiratory failure, likely due to acute CHF exacerbation with reduced EF - tachycardia and tachypnea likely due to albuterol and metoprolol, no leukocytosis - no sepsis, lactic acid 1.6 - BNP elevated at 1509 repeat 1601 - CXR with increased diffuse interstitial opacities with small bilateral pleural effusions, less likely pneumonia - echo showed EF 25-30% with underlying regional wall motion abnormality suggestive of ischemic cardiomyopathy - cardio recommend Lasix 20 mg IV b.i.d. and valsartan 40 mg b.i.d., and ischemic workup likely cardiac catheterization to evaluate underlying coronary artery disease. - will DC antibiotics -follow i/os, daily weight, BMP and BNP -wean O2 as tolerated not on home oxygen COPD no acute exacerbation, hold steroids continue home inhalers and DuoNeb q.6 hours tobacco abuse counseling done patient declined nicotine patch. IDDM -continue diabetic diet, insulin sliding scale and Lantus 8 units at bedtime, home dose 12 units hold tradjenta, farxiga, nateglinide and metformin CKD3 - no acute LAURO, creatinine trending up with diuresis will follow BMP closely PAD/CAD - continue ASA, atorvastatin GERD - continue omeprazole HTN continue metoprolol 200 mg b.i.d. and started on valsartan, will hold amlodipine and lisinopril Mood disorder/dementia - continue risperidone, trazodone, nortriptyline, and donepezil Full code VTE prophylaxis: Lovenox Patient require continued inpatient hospitalization for treatment of acute CHF exacerbation with IV diuretics and close cardiac follow-up. Quality Stroke Does the patient have a stroke diagnosis?: No VTE Prior VTE?: No VTE Risk Level:: Medical - moderate - high VTE Device Contraindication: Treatment Not Indicated VTE Drug Contraindication: N/A - Med Ordered
[2024-05-11 20:36] LABS: Glucose, Whole Blood 140 mg/dL (60-115)
[2024-05-11] MEDS: Nortriptyline HCl 25 MG CAPSULE PO (20:39)
[2024-05-11] MEDS: Donepezil HCl 5 MG TABLET PO (20:39)
[2024-05-11] MEDS: Atorvastatin Calcium 40 MG TABLET PO (20:40)
[2024-05-11] MEDS: Valsartan 40 MG TABLET PO (20:40)
[2024-05-11] MEDS: traZODone HCL 50 MG TABLET PO (20:40)
[2024-05-11] MEDS: Insulin Glargine,Hum.rec.anlog 100 UNIT/ML 10 ML VIAL 8 UNIT SUBCUT (20:42)
[2024-05-11] MEDS: Melatonin 3 MG TABLET 6 MG PO (20:44)
[2024-05-11] MEDS: Benzonatate 100 MG CAPSULE PO (23:56)
[2024-05-12] VITALS (21 sets, daily range): BP systolic 104–141; BP diastolic 53–83; PULSE 73–143; RESP 16–30; TEMP 36.3–36.9; O2SAT 90–140; BMI 21.5
--- NOTE | 2024-05-12 | ECG_ITS ---
Test Reason : CHEST PAIN Blood Pressure : / mmHG Vent. Rate : 135 BPM Atrial Rate : 000 BPM P-R Int : 000 ms QRS Dur : 158 ms QT Int : 354 ms P-R-T Axes : 000 -31 103 degrees QTc Int : 531 ms Atrial fibrillation with rapid ventricular response Left axis deviation Left bundle branch block Abnormal ECG When compared with ECG of 12-MAY-2024 04:26, No significant change was found Referred By: Lilly Thompson Electronically Signed By:URI VENTURA MD
[2024-05-12] MEDS: Albuterol/Iprat 2.5/0.5MG 3 ML AMPUL.NEB INHALE ×4 (00:50→18:59)
[2024-05-12] MEDS: LORazepam 0.5 MG TABLET PO (01:31)
[2024-05-12] MEDS: Furosemide 20 MG/2 ML VIAL IVPUSH ×3 (02:25→18:18)
--- NOTE | 2024-05-12 02:39 | PC.NURSE ---
Pt. assisted to bedside commode to urinate and back to bed. Pt. c/o wheezing and increased SOB, tachypnea and increased work of breathing/accessory muscles. Pt. very anxious and panicky as well. R.T. and grain grader Kim at pt bedside. Pt on 1L O2 via NC and desat'd to 84%; O2 increased to 4L via NC. Pt. declining a face mask d/t claustrophobia. S.Tach 105 on telemetry. Pt. received a nebulizer resp. treatment. Dr. Richard notified of above events via [facility] text. Pt. medicated with Ativan 0.5mg slow IV Push at 0201 per MD order. Pt. sitting upright at side of bed. At 0150, pt. without wheezing, less tachypneic, 94-95% on 4L NC 134/61. Pt. starting to fall asleep. Assisted pt. back to bed at 45% angle per pt. request. Pt. instantly started wheezing and coughing. Able to cough small amt of phemn up but remains dyspneic. Pt. only comfortable sitting upright. LS: RLL diminshed; LLL with course crackles. Updated dr. Richard of these findings at 0200: see provider notification. Lasix 20mg IV x1 dose given at 0215 per MD order. Strict I/O's.
[2024-05-12] MEDS: Magnesium Sulfate/D5W 1 GM/100 ML PIGGYBACK IV (04:09)
[2024-05-12] MEDS: Metoprolol Tartrate 5 MG/5 ML VIAL IVPUSH (04:09)
--- NOTE | 2024-05-12 04:26 | ECG_ITS ---
Test Reason : CP Blood Pressure : / mmHG Vent. Rate : 128 BPM Atrial Rate : 000 BPM P-R Int : 000 ms QRS Dur : 148 ms QT Int : 356 ms P-R-T Axes : 000 -46 105 degrees QTc Int : 519 ms Atrial fibrillation with rapid ventricular response Left axis deviation Left bundle branch block Abnormal ECG When compared with ECG of 10-MAY-2024 11:03, Atrial fibrillation has replaced Sinus rhythm Vent. rate has increased BY 43 BPM QRS axis Shifted left Referred By: Lilly Thompson Electronically Signed By:URI VENTURA MD
--- NOTE | 2024-05-12 04:34 | PM.EVENT ---
Event Note Date of Service: 05/12/24 Event Note: I was called more than once to evaluate the patient for dyspnea at first then abnormal heart rhythm. Lasix added for fluid overload with fair response as dyspnea improved later between 330-400 she started to have NSVTs which looked more sustained , asymptomatic though EKG was checked showing Afib w RVR given baseline of LBBB and Afib the VTach on Tele could be a result of Afib w abberancy Did not improve much with Metoprolol IV , IV Mg will load her with Amiodarone for now and ask cardiology to follow in the morning Time Spent With Patient Time: Total time managing care of this patient today ____ minutes.
[2024-05-12] MEDS: Amiodarone/Dextrose 150 MG/100 ML PLAST..BAG 600 MG IV (05:25)
[2024-05-12] MEDS: Amiodarone HCL 900 MG in 0.9 % Sodium Chloride 500 ML 34.53 MG IVCONT (05:51)
[2024-05-12 07:28] LABS: Glucose, Whole Blood 158 mg/dL (60-115)
[2024-05-12 07:32] LABS: MANUAL DIFF FLAG NO
[2024-05-12 07:40] LABS: Basophils Percent Auto 0.1 % (0-2); Eosinophils Absolute Auto 0.1 X10*3/uL (0.0-0.4); Eosinophils Percent Auto 0.5 % (0-4); Hematocrit 31.7 % (37.0-47.0); Hemoglobin 10.1 g/dl (12.0-16.0); Imm Gran Pct Auto 0.7 % (0.0-0.4); Lymphocytes Absolute Auto 1.1 X10*3/uL (1.2-4.9); Lymphocytes Percent Auto 7.4 % (20-40); Mean Corpuscular HGB Conc 31.9 g/dl (31.0-35.0); Mean Corpuscular Hemoglobin 29.5 pg (27.0-33.0); Mean Corpuscular Volume 92.7 fL (80.0-98.0); Mean Platelet Volume 10.5 fL (9.4-12.3); Monocytes Absolute Auto 1.3 X10*3/uL (0.1-1.2); Monocytes Percent Auto 8.9 % (2-11); Neutrophils Absolute Auto 12.4 x10*3/uL (2.0-8.3); Neutrophils Percent Auto 82.4 % (45-73); Platelet Count 238 X10*3/uL (160-400); Red Blood Count 3.42 X10*6/uL (4.20-5.50); Red Cell Distribution Width 15.7 % (11.0-16.0)
[2024-05-12 07:55] LABS: Anion Gap 14 (12-20); Blood Urea Nitrogen 22 mg/dL (9-16); Calcium 8.4 mg/dL (8.4-10.2); Carbon Dioxide 19 mmol/L (22-29); Chloride 106 mmol/L (96-108); Creatinine Clr Calc Pharmacy 29.1; Estimated Glomerular Filt Rate 42; Glucose Random 141 mg/dL (60-115); Magnesium 1.8 mg/dL (1.6-2.6); Potassium 3.9 mmol/L (3.3-5.1); Sodium 135 mmol/L (135-145)
[2024-05-12 07:59] LABS: B Type Natriuretic Peptide 1508 pg/mL (<100)
[2024-05-12] MEDS: Valsartan 40 MG TABLET PO ×2 (08:01→20:18)
[2024-05-12] MEDS: risperiDONE 0.5 MG TABLET PO ×2 (08:01→20:19)
[2024-05-12] MEDS: Metoprolol Tartrate 100 MG TABLET 200 MG PO ×2 (08:01→20:19)
[2024-05-12] MEDS: Aspirin Enteric Coated 81 MG TABLET.DR PO (08:01)
[2024-05-12] MEDS: Insulin Lispro 100 UNIT/ML 3 ML VIAL SUBCUT ×2 (08:02→20:21)
[2024-05-12] MEDS: 0.9 % Sodium Chloride Flush 3 ML SYRINGE IVFLUSH ×2 (08:02→20:25)
--- NOTE | 2024-05-12 10:23 | P.PNNP_ITS ---
Subjective Subjective Date of Service: 05/12/24 Interval history: 78 y/o female with a medical history of CKD3, CAD, PAD, DMII, HTN, tobacco use, GERD. 05/10 admitted for shortness of breath x2 days, being treated for CHF exacerbation vs PNA She is seen by Dr Sam, nephrology, outpatient for management of CKD has right EFRAIN by doppler study, hx of proteinuria and osteomyelitis of great toe Her creatinine on 05/10 was 1.13, . was 1.37, 05/12 is 1.24- this is around her baseline she is receiving IVP lasix for management of fluid overload home lisinopril being held while on diuretic therapy Patient states her breathing has improved since admission, though remains dyspneic with exertion she denies abdominal pain, chest pain, dizziness she denies flank pain, dysuria, blood in urine she is Physical Exam 2 Vital Signs: Vital Signs: Last Vital Signs Temp 97.6 F 05/12/24 07:29 Pulse 137 H 05/12/24 08:01 Resp 20 05/12/24 07:29 BP 141/70 H 05/12/24 08:02 Pulse Ox 95 05/12/24 07:29 O2 Del Method Nasal Cannula 05/12/24 07:29 O2 Flow Rate 2 05/12/24 07:29 Oxygen Flow Rate 2 05/10/24 10:50 BMI result Body Mass Index 21.5 Const: General: no acute distress, alert and awake Resp: Effort & Inspection: normal respiratory effort and able to speak in complete sentences Auscultation: clear to auscultation bilaterally Cardio: Jugular venous distension: no JVD Rate: regular rate Rhythm: r egular rhythm Heart sounds: S1 normal heart sound present and S2 normal heart sound present GI: Palpation (GI): Soft to palpation and nontender : General: Yes no CVA tenderness Back/Spine/Pelvis: Back: no CVA tenderness Skin: Lesions: no lesions Rashes: no rashes Objective Data Labs 05/12/24 06:57 05/12/24 06:57 Labs: Laboratory Results - last 24 hr 05/10/24 05/11/24 05/11/24 15:30 11: 15:41 WBC RBC Hgb Hct MCV MCH MCHC RDW Plt Count MPV Immature Gran % (Auto) Neut % (Auto) Lymph % (Auto) [place] % (Auto) Eos % (Auto) Baso % (Auto) Lymph # (Auto) [place] # (Auto) Eos # (Auto) Baso # (Auto) Abs Immat Gran (auto) Absolute Neuts (auto) Absolute Nucleated RBC Nucleated RBC % (auto) Sodium Potassium Chloride Carbon Dioxide Anion Gap BUN Creatinine Estim Creat Clear Calc Estimated GFR POC Glucose 195 H 258 H Random Glucose Calcium Magnesium B-Natriuretic Peptide Respiratory Panel [place] See Note Adenovirus (Rapid PCR) Not Detected B.pert (TEM-PCR) Not Detected B.parapertussis DNA PCR Not Detected C. pneumoniae DNA (PCR) Not Detected Coronavirus OC43 (PCR) Not Detected Coronavirus HKU1 (PCR) Not Detected Coronavirus 229E (PCR) Not Detected Coronavirus NL63 (PCR) Not Detected Human Metapneumovir PCR Not Detected Influenza A (RT-PCR) Not Detected Influenza B (RT-PCR) Not Detected M. pneumoniae (PCR) Not Detected Parainfluenza 1 (PCR) Not Detected Parainfluenza 2 (PCR) Not Detected Parainfluenza 3 (PCR) Not Detected Parainfluenza 4 (PCR) Not Detected RSV (PCR) Not Detected Entero/Rhino (PCR) Not Detected SARS-CoV-2 RNA (RT-PCR) Not Detected 05/11/24 05/12/24 05/12/24 20:26 06:57 07:25 WBC 15.0 H RBC 3.42 L Hgb 10.1 L Hct 31.7 L MCV 92.7 D MCH 29.5 MCHC 31.9 RDW 15.7 Plt Count 238 MPV 10.5 Immature Gran % (Auto) 0.7 H Neut % (Auto) 82.4 H Lymph % (Auto) 7.4 L [place] % (Auto) 8.9 Eos % (Auto) 0.5 Baso % (Auto) 0.1 Lymph # (Auto) 1.1 L [place] # (Auto) 1.3 H Eos # (Auto) 0.1 Baso # (Auto) 0.0 Abs Immat Gran (auto) 0.10 H Absolute Neuts (auto) 12.4 H Absolute Nucleated RBC 0.000 Nucleated RBC % (auto) 0.0 Sodium 135 Potassium 3.9 Chloride 106 Carbon Dioxide 19 L Anion Gap 14 BUN 22 H Creatinine 1.24 Estim Creat Clear Calc 29.1 Estimated GFR 42 POC Glucose 140 H 158 H Random Glucose 141 H Calcium 8.4 Magnesium 1.8 B-Natriuretic Peptide 1508 H Respiratory Panel [place] Adenovirus (Rapid PCR) B.pert (TEM-PCR) B.parapertussis DNA PCR C. pneumoniae DNA (PCR) Coronavirus OC43 (PCR) Coronavirus HKU1 (PCR) Coronavirus 229E (PCR) Coronavirus NL63 (PCR) Human Metapneumovir PCR Influenza A (RT-PCR) Influenza B (RT-PCR) M. pneumoniae (PCR) Parainfluenza 1 (PCR) Parainfluenza 2 (PCR) Parainfluenza 3 (PCR) Parainfluenza 4 (PCR) RSV (PCR) Entero/Rhino (PCR) SARS-CoV-2 RNA (RT-PCR) Procedures Date of Service Date of Service: 05/12/24 Assessment & Plan Assessment and plan (1) CKD (chronic kidney disease) stage 3, GFR 30-59 ml/min: Status: Chronic (2) Acute exacerbation of CHF (congestive heart failure): Status: Acute Plan Patient with baseline 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 on diuretic therapy for CHF exacerbation stable renal function studies continue to remain at baseline continue current plan monitor blood pressures closely monitor renal function and electrolytes daily continue supportive care will continue to follow Discussed with Dr Sam Time Spent With Patient Time: Total time managing care of this patient today ____ minutes. Progress Note: Quality Stroke Does the patient have a stroke diagnosis?: No
--- NOTE | 2024-05-12 10:25 | PM.PNCARD ---
Subjective Subjective Date of Service: 05/12/24 Principal diagnosis: Atrial fibrillation, cardiomyopathy. Interval history: Patient developed atrial fibrillation rapid ventricular response this a.m. at 04:00. Was appropriately treated and started on amiodarone bolus and drip. Currently taking 1 mg a minute drip. Remains in atrial fibrillation rapid ventricular response. Patient was quite symptomatic with shortness of breath. She denies any palpitation lightheadedness. No hemodynamic compromise at this point time. Echocardiogram yesterday showed severe LV systolic dysfunction with regional wall motion abnormality consistent with most likely ischemic cardiomyopathy. Review of Systems Constitutional: Reports no additional constitutional complaints Cardiovascular: Denies chest pain, Reports rapid heart rate, Denies leg edema, Denies lightheadedness, Denies Loss of Consciousness and Reports dyspnea on exertion Respiratory: Reports dyspnea on exertion Physical Exam Vital Signs: Last Vital Signs Temp 97.6 F 05/12/24 07:29 Pulse 137 H 05/12/24 08:01 Resp 20 05/12/24 07:29 BP 141/70 H 05/12/24 08:02 Pulse Ox 95 05/12/24 07:29 O2 Del Method Nasal Cannula 05/12/24 07:29 O2 Flow Rate 2 05/12/24 07:29 Oxygen Flow Rate 2 05/10/24 10:50 BMI result Body Mass Index 21.5 Const General: cooperative and in distress mild and respiratory Nutritional Appearance: thin Orientation/consciousness: patient oriented x3 Neck Neck: Yes trachea midline, Yes supple and Yes no JVD Resp Auscultation: rales and diminished lung sounds Cardio Rate: tachycardic Rhythm: abnormal rhythm irregularly irregular Heart sounds: S1 normal heart sound present and S2 normal heart sound present GI Auscultation: normal bowel sounds Skin General skin exam: no rashes or lesions noted Neuro General: patient oriented x3 and no focal motor deficits Extrem General: Yes no clubbing, cyanosis or edema Objective Labs and Meds 05/12/24 06:57 05/12/24 06:57 Lab results: Laboratory Results - last 24 hr 05/10/24 05/11/24 05/11/24 15:30 11:23 15:41 WBC RBC Hgb Hct MCV MCH MCHC RDW Plt Count MPV Immature Gran % (Auto) Neut % (Auto) Lymph % (Auto) [place] % (Auto) Eos % (Auto) Baso % (Auto) Lymph # (Auto) [place] # (Auto) Eos # (Auto) Baso # (Auto) Abs Immat Gran (auto) Absolute Neuts (auto) Absolute Nucleated RBC Nucleated RBC % (auto) Sodium Potassium Chloride Carbon Dioxide Anion Gap BUN Creatinine Estim Creat Clear Calc Estimated GFR POC Glucose 195 H 258 H Random Glucose Calcium Magnesium B-Natriuretic Peptide Respiratory Panel [place] See Note Adenovirus (Rapid PCR) Not Detected B.pert (TEM-PCR) Not Detected B.parapertussis DNA PCR Not Detected C. pneumoniae DNA (PCR) Not Detected Coronavirus OC43 (PCR) Not Detected Coronavirus HKU1 (PCR) Not Detected Coronavirus 229E (PCR) Not Detected Coronavirus NL63 (PCR) Not Detected Human Metapneumovir PCR Not Detected Influenza A (RT-PCR) Not Detected Influenza B (RT-PCR) Not Detected M. pneumoniae (PCR) Not Detected Parainfluenza 1 (PCR) Not Detected Parainfluenza 2 (PCR) Not Detected Parainfluenza 3 (PCR) Not Detected Parainfluenza 4 (PCR) Not Detected RSV (PCR) Not Detected Entero/Rhino (PCR) Not Detected SARS-CoV-2 RNA (RT-PCR) Not Detected 05/11/24 05/12/24 05/12/24 20:26 06:57 07:25 WBC 15.0 H RBC 3.42 L Hgb 10.1 L Hct 31.7 L MCV 92.7 D MCH 29.5 MCHC 31.9 RDW 15.7 Plt Count 238 MPV 10.5 Immature Gran % (Auto) 0.7 H Neut % (Auto) 82.4 H Lymph % (Auto) 7.4 L [place] % (Auto) 8.9 Eos % (Auto) 0.5 Baso % (Auto) 0.1 Lymph # (Auto) 1.1 L [place] # (Auto) 1.3 H Eos # (Auto) 0.1 Baso # (Auto) 0.0 Abs Immat Gran (auto) 0.10 H Absolute Neuts (auto) 12.4 H Absolute Nucleated RBC 0.000 Nucleated RBC % (auto) 0.0 Sodium 135 Potassium 3.9 Chloride 106 Carbon Dioxide 19 L Anion Gap 14 BUN 22 H Creatinine 1.24 Estim Creat Clear Calc 29.1 Estimated GFR 42 POC Glucose 140 H 158 H Random Glucose 141 H Calcium 8.4 Magnesium 1.8 B-Natriuretic Peptide 1508 H Respiratory Panel [place] Adenovirus (Rapid PCR) B.pert (TEM-PCR) B.parapertussis DNA PCR C. pneumoniae DNA (PCR) Coronavirus OC43 (PCR) Coronavirus HKU1 (PCR) Coronavirus 229E (PCR) Coronavirus NL63 (PCR) Human Metapneumovir PCR Influenza A (RT-PCR) Influenza B (RT-PCR) M. pneumoniae (PCR) Parainfluenza 1 (PCR) Parainfluenza 2 (PCR) Parainfluenza 3 (PCR) Parainfluenza 4 (PCR) RSV (PCR) Entero/Rhino (PCR) SARS-CoV-2 RNA (RT-PCR) Progress Note: A&P Assessment and plan (1) Atrial fibrillation with rapid ventricular response: Status: Acute Assessment and Plan: Patient developed acute atrial fibrillation with rapid ventricular response this morning with significant symptoms most likely related to loss of AV synchrony and LV systolic dysfunction. Agree with current amiodarone use to try to achieve sinus rhythm which will help her significant good clinically. If she fails tochemically cardiovert will plan for synchronized cardioversion tomorrow morning. Discussed with her about the management plan. Can also give her p.o. metoprolol for now. Also start oral anticoagulation therapy with Eliquis given her high thromboembolic risk. Management discussed with her and hospitalist team (2) Acute exacerbation of CHF (congestive heart failure): Status: Acute Assessment and Plan: Patient presented with acute hypoxemic respiratory failure with component of CHF. Clinically does appear markedly fluid overloaded and will continue with gentle diuresis. Strict intake and output chart needs to be pursued. Continue vasodilators therapy with valsartan. Will continue monitor clinically. Pursue rhythm control approach as above. Please keep her NPO past midnight. Overall prognosis guarded. Most likely cause for her severe LV systolic dysfunction in his significant coronary artery disease which will need most likely invasive cardiac catheterization although patient needs to be stabilized from cardiac perspective 1st. Will closely follow with you. Time Spent With Patient Time: Total time managing care of this patient today ____ minutes. Progress Note: Quality Stroke Does the patient have a stroke diagnosis?: No Procedures Date of Service Date of Service: 05/12/24
[2024-05-12] MEDS: Apixaban 5 MG TABLET PO ×2 (11:10→20:18)
[2024-05-12 11:17] LABS: Glucose, Whole Blood 83 mg/dL (60-115)
--- NOTE | 2024-05-12 14:52 | HO.PM.IMPN ---
Subjective Subjective Date of Service: 05/12/24 Interval History: c/o shortness of breath no chest pain went into AF/RVR this am at 4:30 and amiodarone IV gtt started Review of Systems Review of Systems: Yes all other systems are reviewed and are negative Physical Exam Vital Signs: Vital Signs: Last Vital Signs Temp 97.4 F 05/12/24 11:43 Pulse 119 H 05/12/24 11:49 Resp 22 H 05/12/24 11:49 BP 113/76 05/12/24 11:43 Pulse Ox 93 05/12/24 11:43 O2 Del Method Nasal Cannula 05/12/24 11:43 O2 Flow Rate 2 05/12/24 11:43 Oxygen Flow Rate 2 05/10/24 10:50 BMI result Body Mass Index 21.5 Gen: in no acute distress HEENT: sclera anicteric, moist mucus membranes Neck: supple Lungs: diminished Heart: rapid, irregular, no murmurs Abd: soft, non-tender, non-distended Ext: no edema Skin: warm/well-perfused Neuro: alert and oriented x3, no focal findings Psych: appropriate affect Objective Data Active Medications Acetaminophen (Acetaminophen 325 Mg Tablet) 650 mg PO Q6H PRN PRN Reason: Pain, Mild (Pain Scale 1-3), fever or headache Last Admin: 05/10/24 20:56 Dose: 650 mg Documented By: GINA Albuterol/Ipratropium (Albuterol/Iprat 2.5/0.5mg 3 Ml Ampul.Neb) 3 ml INHALE RQ6H WHILE AWAKE [facility] Last Admin: 05/12/24 11:48 Dose: 3 ml Documented By: BELLO Apixaban (Apixaban 5 Mg Tablet) 5 mg PO BID [facility] Last Admin: 05/12/24 11:10 Dose: 5 mg Documented By: ARTHUR Aspirin (Aspirin Enteric Coated 81 Mg Tablet.) 81 mg PO DAILY [facility] Last Admin: 05/12/24 08:01 Dose: 81 mg Documented By: ARTHUR Atorvastatin Calcium (Atorvastatin Calcium 40 Mg Tablet) 40 mg PO BEDTIME [facility] Last Admin: 05/11/24 20:40 Dose: 40 mg Documented By: ROHIT Benzonatate (Benzonatate 100 Mg Capsule) 100 mg PO TID PRN PRN Reason: Cough Last Admin: 05/11/24 23:56 Dose: 100 mg Documented By: ROHIT Calcium Carbonate (Calcium Carbonate 750 Mg Tab.Chew) 750 mg PO Q4H PRN PRN Reason: Heartburn Donepezil HCl (Donepezil Hcl 5 Mg Tablet) 5 mg PO BEDTIME [facility] Last Admin: 05/11/24 20:39 Dose: 5 mg Documented By: ROHIT Enoxaparin Sodium (Enoxaparin Sodium 40 Mg/0.4 Ml Syringe) 40 mg SUBCUT Q24H [facility] Last Admin: 05/11/24 16:01 Dose: 40 mg Documented By: CODY Fluticasone/Vilanterol (Fluticasone/Vilanterol 100/25 Blst.W.Dev) 1 puff INHALE RDAILY [facility] Last Admin: 05/12/24 09:37 Dose: Not Given Documented By: BELLO Non-Admin Reason: Patient Refused Furosemide (Furosemide 20 Mg/2 Ml Vial) 20 mg IVPUSH BID@0900,1800 [facility]; Protocol Last Admin: 05/12/24 08:02 Dose: 20 mg Documented By: ARTHUR Glucose (Glucose Gel 15 Gm Gel..Gram.) 15 gm PO Q15M PRN; Protocol PRN Reason: per Hypoglycemia Standing Ord. Dextrose (D10) 250 mls @ 750 mls/hr IV Q15M PRN; Protocol PRN Reason: per Hypoglycemia Standing Ord. Amiodarone HCl 900 mg/ Sodium (Chloride) 518 mls @ 34.533 mls/hr IVCONT .Q15H1M [facility]; Protocol Last Infusion: 05/12/24 11:11 Dose: 0.5 mg/min, 17.27 mls/hr Documented By: ARTHUR Insulin Glargine (Insulin Glargine,Hum.Rec.Anlog 100 Unit/Ml 10 Ml Vial) 8 unit SUBCUT BEDTIME [facility] Last Admin: 05/11/24 20:42 Dose: 8 unit Documented By: ROHIT Insulin Human Lispro (Insulin Lispro 100 Unit/Ml 3 Ml Vial) 0 unit SUBCUT QIDACHS [facility]; Protocol Last Admin: 05/12/24 11:19 Dose: Not Given Documented By: ARTHUR Non-Admin Reason: No Insulin Coverage Magnesium Hydroxide (Milk Of Magnesia 30 Ml Oral.Susp) 30 ml PO DAILY PRN PRN Reason: Constipation Melatonin (Melatonin 3 Mg Tablet) 6 mg PO BEDTIME PRN PRN Reason: Insomnia Last Admin: 05/11/24 20:44 Dose: 6 mg Documented By: ROHIT Metoprolol Tartrate (Metoprolol Tartrate 100 Mg Tablet) 200 mg PO BID [facility]; Protocol Last Admin: 05/12/24 08:01 Dose: 200 mg Documented By: ARTHUR Nortriptyline HCl (Nortriptyline Hcl 25 Mg Capsule) 25 mg PO BEDTIME [facility] Last Admin: 05/11/24 20:39 Dose: 25 mg Documented By: ROHIT Omeprazole (Omeprazole 40 Mg Capsule.Dr) 40 mg PO DAILY@0630 [facility] Last Admin: 05/12/24 05:36 Dose: Not Given Documented By: ROHIT Non-Admin Reason: Patient Refused Ondansetron HCl (Ondansetron Hcl 4 Mg/2 Ml Vial) 4 mg IVPUSH Q8H PRN PRN Reason: Nausea and Vomiting Oxycodone HCl (Oxycodone Hcl Immed Release 5 Mg Tablet) 5 mg PO Q6H PRN PRN Reason: Pain, Moderate(Pain Scale 4-6) Risperidone (Risperidone 0.5 Mg Tablet) 0.5 mg PO BID [facility] Last Admin: 05/12/24 08:01 Dose: 0.5 mg Documented By: ARTHUR Sodium Chloride (0.9 % Sodium Chloride Flush 3 Ml Syringe) 3 ml IVFLUSH [facility] Last Admin: 05/12/24 08:02 Dose: 3 ml Documented By: ARTHUR Trazodone HCl (Trazodone Hcl 50 Mg Tablet) 50 mg PO BEDTIME PRN PRN Reason: Insomnia Last Admin: 05/11/24 20:40 Dose: 50 mg Documented By: ROHIT Valsartan (Valsartan 40 Mg Tablet) 40 mg PO BID [facility]; Protocol Last Admin: 05/12/24 08:01 Dose: 40 mg Documented By: ARTHUR Labs 05/12/24 06:57 05/12/24 06:57 Labs: Laboratory Results - last 24 hr 05/11/24 05/11/24 05/12/24 15:41 20:26 06:57 MCV 92.7 D MCH 29.5 MCHC 31.9 RDW 15.7 Plt Count 238 MPV 10.5 Immature Gran % (Auto) 0.7 H Neut % (Auto) 82.4 H Lymph % (Auto) 7.4 L [place] % (Auto) 8.9 Eos % (Auto) 0.5 Baso % (Auto) 0.1 Lymph # (Auto) 1.1 L [place] # (Auto) 1.3 H Eos # (Auto) 0.1 Baso # (Auto) 0.0 Abs Immat Gran (auto) 0.10 H Absolute Neuts (auto) 12.4 H Absolute Nucleated RBC 0.000 Nucleated RBC % (auto) 0.0 Anion Gap 14 Estim Creat Clear Calc 29.1 Estimated GFR 42 POC Glucose 258 H 140 H Random Glucose 141 H Calcium 8.4 Magnesium 1.8 B-Natriuretic Peptide 1508 H 05/12/24 05/12/24 07:25 11:13 MCV MCH MCHC RDW Plt Count MPV Immature Gran % (Auto) Neut % (Auto) Lymph % (Auto) [place] % (Auto) Eos % (Auto) Baso % (Auto) Lymph # (Auto) [place] # (Auto) Eos # (Auto) Baso # (Auto) Abs Immat Gran (auto) Absolute Neuts (auto) Absolute Nucleated RBC Nucleated RBC % (auto) Anion Gap Estim Creat Clear Calc Estimated GFR POC Glucose 158 H 83 Random Glucose Calcium Magnesium B-Natriuretic Peptide Assessment and Plan (1) Acute exacerbation of CHF (congestive heart failure): Status: Acute (2) Tobacco abuse: Status: Chronic (3) Acute hypoxic respiratory failure: Status: Acute Plan d3 78yo F with COPD, DM2, CKD3, PAD, CAD, MDD, GERD, HTN, hiatal hernia, carotid occlusion, and recent admission to [facility] for hallucinations presented with 2d of dyspnea, found to be hypoxic to 88% by EMS admitted for AHRF due to CHF exacerbation AHRF due to acute/chronic FrEF - TTE 05/11/24: . Severely reduced LV ejection fraction of 25-30% with underlying regional wall motion abnormalities suggestive of ischemic cardiomyopathy 2. [id number] mitral regurgitation 3. Normal RV systolic pressure 4. No gross pericardial effusion - continue IV diuresis with furosemide - continue valsartan - will need cardiac catheterization to evaluation underlying CAD - CXR with increased diffuse interstitial opacities with small bilateral pleural effusions, less likely pneumonia - wean O2 as tolerated AF/RVR - continue amiodarone drip, NPO for possible cardioversion, Cardiology following - continue metoprolol tartrate - start AC with apixaban COPD not in acute exacerbation - continue nebs + home inhalers CKD3 - monitor Cr with diuresis DM2 - continue basal-bolus insulin; hold Tradjent, Farxiga, netglinide, and MTF HTN - continue valsartan + metoprolol tartrate; hold amlodipine + lisinopril PAD CAD - continue ASA, atorvastatin GERD - PPI tobacco abuse - declines NRT mood disorder dementia - continue donepezil, nortriptyline, trazodone, risperidone VTE ppx - start apixaban dispo - TBD In my clinical judgment, the patient requires continued inpatient hospitalization for the following reasons: rate control, IV diuresis Total time managing care of this patient today: 45 minutes. Quality Stroke Does the patient have a stroke diagnosis?: No VTE Prior VTE?: No VTE Risk Level:: Medical - moderate - high VTE Device Contraindication: Treatment Not Indicated VTE Drug Contraindication: N/A - Med Ordered
[2024-05-12 16:03] LABS: Glucose, Whole Blood 118 mg/dL (60-115)
[2024-05-12] MEDS: Amiodarone HCL 900 MG in 0.9 % Sodium Chloride 500 ML 17.27 MG IVCONT (18:18)
[2024-05-12 20:04] LABS: Glucose, Whole Blood 239 mg/dL (60-115)
[2024-05-12] MEDS: Donepezil HCl 5 MG TABLET PO (20:18)
[2024-05-12] MEDS: Atorvastatin Calcium 40 MG TABLET PO (20:19)
[2024-05-12] MEDS: Nortriptyline HCl 25 MG CAPSULE PO (20:19)
[2024-05-12] MEDS: Melatonin 3 MG TABLET 6 MG PO (20:19)
[2024-05-12] MEDS: Insulin Glargine,Hum.rec.anlog 100 UNIT/ML 10 ML VIAL 8 UNIT SUBCUT (20:19)
[2024-05-12] MEDS: traZODone HCL 50 MG TABLET PO (22:03)
[2024-05-12] MEDS: levalbuterol HCL 1.25 MG/3 ML VIAL.NEB INHALE (22:29)
[2024-05-13] VITALS (11 sets, daily range): BP systolic 122–146; BP diastolic 58–90; PULSE 72–87; RESP 18–20; TEMP -12.4–37.1; O2SAT 90–100; BMI 22.7
[2024-05-13] MEDS: Albuterol/Iprat 2.5/0.5MG 3 ML AMPUL.NEB INHALE ×3 (06:36→18:55)
[2024-05-13 07:25] LABS: Basophils Percent Auto 0.1 % (0-2); Eosinophils Absolute Auto 0.1 X10*3/uL (0.0-0.4); Eosinophils Percent Auto 0.8 % (0-4); Hemoglobin 11.8 g/dl (12.0-16.0); Imm Gran Abs Auto 0.05 X10*3/uL (0.00-0.03); Imm Gran Pct Auto 0.5 % (0.0-0.4); Lymphocytes Absolute Auto 1.6 X10*3/uL (1.2-4.9); Lymphocytes Percent Auto 14.9 % (20-40); MANUAL DIFF FLAG NO; Mean Corpuscular HGB Conc 32.8 g/dl (31.0-35.0); Mean Corpuscular Hemoglobin 29.3 pg (27.0-33.0); Mean Corpuscular Volume 89.3 fL (80.0-98.0); Mean Platelet Volume 10.6 fL (9.4-12.3); Monocytes Absolute Auto 0.9 X10*3/uL (0.1-1.2); Monocytes Percent Auto 8.8 % (2-11); Neutrophils Absolute Auto 7.9 x10*3/uL (2.0-8.3); Neutrophils Percent Auto 74.9 % (45-73); Platelet Count 262 X10*3/uL (160-400); Red Blood Count 4.03 X10*6/uL (4.20-5.50); Red Cell Distribution Width 15.6 % (11.0-16.0); White Blood Count 10.6 X10*3/uL (4.8-10.8)
[2024-05-13 07:44] LABS: Anion Gap 18 (12-20); Blood Urea Nitrogen 28 mg/dL (9-16); Calcium 8.8 mg/dL (8.4-10.2); Carbon Dioxide 19 mmol/L (22-29); Chloride 101 mmol/L (96-108); Creatinine Clr Calc Pharmacy 22.5; Estimated Glomerular Filt Rate 31; Glucose Random 121 mg/dL (60-115); Magnesium 1.7 mg/dL (1.6-2.6); Sodium 134 mmol/L (135-145)
[2024-05-13 07:48] LABS: B Type Natriuretic Peptide 1175 pg/mL (<100)
[2024-05-13 07:50] LABS: Glucose, Whole Blood 129 mg/dL (60-115)
[2024-05-13] MEDS: Fluticasone/Vilanterol 100/25 BLST.W.DEV 1 PUFF INHALE (08:17)
[2024-05-13] MEDS: Omeprazole 40 MG CAPSULE.DR PO (08:48)
[2024-05-13] MEDS: 0.9 % Sodium Chloride Flush 3 ML SYRINGE IVFLUSH ×2 (08:48→16:28)
[2024-05-13] MEDS: Apixaban 5 MG TABLET PO (08:49)
[2024-05-13] MEDS: Valsartan 40 MG TABLET PO (08:49)
[2024-05-13] MEDS: Aspirin Enteric Coated 81 MG TABLET.DR PO (08:49)
[2024-05-13] MEDS: Metoprolol Tartrate 100 MG TABLET 200 MG PO ×2 (08:49→19:55)
[2024-05-13] MEDS: risperiDONE 0.5 MG TABLET PO ×2 (08:49→19:56)
[2024-05-13] MEDS: Furosemide 20 MG/2 ML VIAL IVPUSH (08:50)
--- NOTE | 2024-05-13 09:04 | PM.PNNEP ---
Subjective Subjective Date of Service: 05/13/24 Principal diagnosis: Atrial fibrillation, cardiomyopathy. Interval history: 78 y/o female with a medical history of CKD3, CAD, PAD, DMII, HTN, tobacco use, GERD. 05/10 admitted for shortness of breath x2 days, being treated for CHF exacerbation vs PNA She is seen by Dr Sam, nephrology, outpatient for management of CKD has right EFRAIN by doppler study, hx of proteinuria and osteomyelitis of great toe Her creatinine on 05/10 was 1.13, . was 1.37, 05/12 is 1.24- this is around her baseline; 05/13 creatinine increased to 1.6 she is receiving IVP lasix for management of fluid overload home lisinopril being held while on diuretic therapy of note had episode of afib with RVR and dyspnea on 05/12, receiving amiodarone for management on furosemide 20mg BID IVP and valsartan 40mg BID chest xray with diffuse interstitial opacities with small bilateral pleural effusions Patient states she feels short of breath at rest (in recliner currently, receiving nebulizer) she denies abdominal pain, chest pain, dizziness she denies flank pain, dysuria, blood in urine denies chest pain Physical Exam Vital Signs: Vital Signs: Last Vital Signs Temp 97.8 F 05/13/24 07:39 Pulse 78 05/13/24 08:20 Resp 18 05/13/24 08:20 BP 146/59 H 05/13/24 07:39 Pulse Ox 96 05/13/24 07:39 O2 Del Method Nasal Cannula 05/13/24 07:39 O2 Flow Rate 2 05/13/24 07:39 Oxygen Flow Rate 2 05/10/24 10:50 BMI result Body Mass Index 22.7 Const: General: no acute distress, alert and awake Resp: Effort & Inspection: able to speak in complete sentences and labored Auscultation: crackles and wheezes Cardio: Jugular venous distension: no JVD Rate: regular rate Rhythm: regular rhythm Heart sounds: S1 normal heart sound present and S2 normal heart sound present GI: Palpation (GI): Soft to palpation and nontender : General: Yes no CVA tenderness Back/Spine/Pelvis: Back: no CVA tenderness Skin: Lesions: no lesions Rashes: no rashes Objective Data Labs 05/13/24 06:53 05/13/24 06:53 Labs: Laboratory Results - last 24 hr 05/12/24 05/12/24 05/12/24 11:13 15:59 20:00 WBC RBC Hgb Hct MCV MCH MCHC RDW Plt Count MPV Immature Gran % (Auto) Neut % (Auto) Lymph % (Auto) [place] % (Auto) Eos % (Auto) Baso % (Auto) Lymph # (Auto) [place] # (Auto) Eos # (Auto) Baso # (Auto) Abs Immat Gran (auto) Absolute Neuts (auto) Absolute Nucleated RBC Nucleated RBC % (auto) Sodium Potassium Chloride Carbon Dioxide Anion Gap BUN Creatinine Estim Creat Clear Calc Estimated GFR POC Glucose 83 118 H 239 H Random Glucose Calcium Magnesium B-Natriuretic Peptide 05/13/24 05/13/24 06:53 07:42 WBC 10.6 RBC 4.03 L Hgb 11.8 L Hct 36.0 L MCV 89.3 MCH 29.3 MCHC 32.8 RDW 15.6 Plt Count 262 MPV 10.6 Immature Gran % (Auto) 0.5 H Neut % (Auto) 74.9 H Lymph % (Auto) 14.9 L [place] % (Auto) 8.8 Eos % (Auto) 0.8 Baso % (Auto) 0.1 Lymph # (Auto) 1.6 [place] # (Auto) 0.9 Eos # (Auto) 0.1 Baso # (Auto) 0.0 Abs Immat Gran (auto) 0.05 H Absolute Neuts (auto) 7.9 Absolute Nucleated RBC 0.000 Nucleated RBC % (auto) 0.0 Sodium 134 L Potassium 4.0 Chloride 101 Carbon Dioxide 19 L Anion Gap 18 BUN 28 H Creatinine 1.60 H Estim Creat Clear Calc 22.5 Estimated GFR 31 POC Glucose 129 H Random Glucose 121 H Calcium 8.8 Magnesium 1.7 B-Natriuretic Peptide 1175 H Procedures Date of Service Date of Service: 05/13/24 Assessment & Plan Assessment and plan (1) CKD (chronic kidney disease) stage 3, GFR 30-59 ml/min: Status: Chronic (2) Acute exacerbation of CHF (congestive heart failure): Status: Acute Plan Patient with baseline 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 on diuretic therapy for CHF exacerbation LAURO likely secondary to renal hypoperfusion from episode of afib with RVR; valsartan in setting of diuresis may have also contributed (agree to hold for now) continue current plan monitor blood pressures closely monitor renal function and electrolytes daily continue supportive care will continue to follow Discussed with Dr Sam Time Spent With Patient Time: Total time managing care of this patient today ____ minutes. Progress Note: Quality Stroke Does the patient have a stroke diagnosis?: No
--- NOTE | 2024-05-13 09:32 | PM.PNCARD ---
Subjective Subjective Date of Service: 05/13/24 Principal diagnosis: Atrial fibrillation, cardiomyopathy. Interval history: Patient converted overnight to normal sinus rhythm. She says she feels a lot better and shortness of breath is improved at rest although she is still requiring oxygen says still feel short of breath and can not lay flat in bed. Denies any chest pain. Her creatinine is increased compared to a baseline to 1.6. She has no leg edema. Denies any lightheadedness or syncope. Review of Systems Constitutional: Reports no additional constitutional complaints Cardiovascular: Denies chest pain, Denies rapid heart rate, Denies leg edema, Denies lightheadedness, Reports dyspnea on exertion and Reports orthopnea Respiratory: Reports dyspnea on exertion Gastrointestinal: Reports no additional gastrointestinal complaints Physical Exam Vital Signs: Last Vital Signs Temp 97.8 F 05/13/24 07:39 Pulse 78 05/13/24 08:20 Resp 18 05/13/24 08:20 BP 146/59 H 05/13/24 07:39 Pulse Ox 96 05/13/24 07:39 O2 Del Method Nasal Cannula 05/13/24 07:39 O2 Flow Rate 2 05/13/24 07:39 Oxygen Flow Rate 2 05/10/24 10:50 BMI result Body Mass Index 22.7 Const General: cooperative and in distress mild and respiratory Nutritional Appearance: thin Orientation/consciousness: patient oriented x3 Neck Neck: Yes trachea midline, Yes supple and Yes no JVD Resp Auscultation: rales and diminished lung sounds Cardio Rate: regular rate and tachycardic Rhythm: regular rhythm Heart sounds: S1 normal heart sound present and S2 normal heart sound present GI Auscultation: normal bowel sounds Skin General skin exam: no rashes or lesions noted Neuro General: patient oriented x3 and no focal motor deficits Extrem General: Yes no clubbing, cyanosis or edema Objective Labs and Meds 05/13/24 06:53 05/13/24 06:53 Lab results: Laboratory Results - last 24 hr 05/12/24 05/12/24 05/12/24 11:13 15:59 20:00 WBC RBC Hgb Hct MCV MCH MCHC RDW Plt Count MPV Immature Gran % (Auto) Neut % (Auto) Lymph % (Auto) [place] % (Auto) Eos % (Auto) Baso % (Auto) Lymph # (Auto) [place] # (Auto) Eos # (Auto) Baso # (Auto) Abs Immat Gran (auto) Absolute Neuts (auto) Absolute Nucleated RBC Nucleated RBC % (auto) Sodium Potassium Chloride Carbon Dioxide Anion Gap BUN Creatinine Estim Creat Clear Calc Estimated GFR POC Glucose 83 118 H 239 H Random Glucose Calcium Magnesium B-Natriuretic Peptide 05/13/24 05/13/24 06:53 07:42 WBC 10.6 RBC 4.03 L Hgb 11.8 L Hct 36.0 L MCV 89.3 MCH 29.3 MCHC 32.8 RDW 15.6 Plt Count 262 MPV 10.6 Immature Gran % (Auto) 0.5 H Neut % (Auto) 74.9 H Lymph % (Auto) 14.9 L [place] % (Auto) 8.8 Eos % (Auto) 0.8 Baso % (Auto) 0.1 Lymph # (Auto) 1.6 [place] # (Auto) 0.9 Eos # (Auto) 0.1 Baso # (Auto) 0.0 Abs Immat Gran (auto) 0.05 H Absolute Neuts (auto) 7.9 Absolute Nucleated RBC 0.000 Nucleated RBC % (auto) 0.0 Sodium 134 L Potassium 4.0 Chloride 101 Carbon Dioxide 19 L Anion Gap 18 BUN 28 H Creatinine 1.60 H Estim Creat Clear Calc 22.5 Estimated GFR 31 POC Glucose 129 H Random Glucose 121 H Calcium 8.8 Magnesium 1.7 B-Natriuretic Peptide 1175 H Progress Note: A&P Assessment and plan (1) Acute exacerbation of CHF (congestive heart failure): Status: Acute Assessment and Plan: Acute exacerbation of CHF although clinically does appear to be significantly fluid overloaded today but remains significantly symptomatic requiring oxygen as well as very short of breath and orthopnea. Most likely related to coronary/myocardial ischemia. I think she requires a cardiac catheterization. Although she is very emotional and says she wants to go home 1st. We discussed the risks associated with this. Noted rising creatinine which could be multifactorial related to diuresis and possibly renovascular disease and use of valsartan. Would hold valsartan for now. Reduce diuresis to 20 mg daily. Switch to hydralazine/Isordil combination. Continue supportive care and pulmonary treatment along with maintenance of rhythm, see below. (2) Atrial fibrillation with rapid ventricular response: Status: Acute Assessment and Plan: Atrial fibrillation status post amiodarone drip and chemical cardioversion to sinus rhythm. Improvement in symptoms. Will pursue rhythm control approach. Load with amiodarone 400 mg b.i.d. for 2 weeks followed by 200 mg daily. She will benefit significantly from rhythm control to improve her cardiac function. Avoidance of stimulants was discussed. Continue Eliquis, at 2.5 mg b.i.d.. Once renal function improves can switch it back to 5 mg b.i.d.. Will follow with you Time Spent With Patient Time: Total time managing care of this patient today ____ minutes. Progress Note: Quality Stroke Does the patient have a stroke diagnosis?: No Procedures Date of Service Date of Service: 05/13/24
--- NOTE | 2024-05-13 09:56 | HO.PM.IMPN ---
Subjective Subjective Date of Service: 05/13/24 Interval History: converted to NSR around 2200 overnight feels slightly better but still dyspneic especially with laying flat no chest pain no leg edema Review of Systems Review of Systems: Yes all other systems are reviewed and are negative Physical Exam Vital Signs: Vital Signs: Last Vital Signs Temp 97.8 F 05/13/24 07:39 Pulse 78 05/13/24 08:20 Resp 18 05/13/24 08:20 BP 146/59 H 05/13/24 07:39 Pulse Ox 96 05/13/24 07:39 O2 Del Method Nasal Cannula 05/13/24 07:39 O2 Flow Rate 2 05/13/24 07:39 Oxygen Flow Rate 2 05/10/24 10:50 BMI result Body Mass Index 22.7 Gen: in no acute distress HEENT: sclera anicteric, moist mucus membranes Neck: supple Lungs: diminished Heart: regular Abd: soft, non-tender, non-distended Ext: no edema Skin: warm/well-perfused Neuro: alert and oriented x3, no focal findings Psych: appropriate affect Objective Data Active Medications Acetaminophen (Acetaminophen 325 Mg Tablet) 650 mg PO Q6H PRN PRN Reason: Pain, Mild (Pain Scale 1-3), fever or headache Last Admin: 05/10/24 20:56 Dose: 650 mg Documented By: GINA Albuterol/Ipratropium (Albuterol/Iprat 2.5/0.5mg 3 Ml Ampul.Neb) 3 ml INHALE RQ6H WHILE AWAKE [facility] Last Admin: 05/13/24 06:36 Dose: 3 ml Documented By: MARICEL Amiodarone HCl (Amiodarone Hcl 200 Mg Tablet) 400 mg PO BID [facility] Apixaban (Apixaban 2.5 Mg Tablet) 2.5 mg PO BID [facility] Aspirin (Aspirin Enteric Coated 81 Mg Tablet.) 81 mg PO DAILY [facility] Last Admin: 05/13/24 08:49 Dose: 81 mg Documented By: ALEISHA Atorvastatin Calcium (Atorvastatin Calcium 40 Mg Tablet) 40 mg PO BEDTIME [facility] Last Admin: 05/12/24 20:19 Dose: 40 mg Documented By: GABRIEL Benzonatate (Benzonatate 100 Mg Capsule) 100 mg PO TID PRN PRN Reason: Cough Last Admin: 05/11/24 23:56 Dose: 100 mg Documented By: ROHIT Calcium Carbonate (Calcium Carbonate 750 Mg Tab.Chew) 750 mg PO Q4H PRN PRN Reason: Heartburn Donepezil HCl (Donepezil Hcl 5 Mg Tablet) 5 mg PO BEDTIME [facility] Last Admin: 05/12/24 20:18 Dose: 5 mg Documented By: GABRIEL Fluticasone/Vilanterol (Fluticasone/Vilanterol 100/25 Blst.W.Dev) 1 puff INHALE RDAILY [facility] Last Admin: 05/13/24 08:17 Dose: 1 puff Documented By: BELLO Furosemide (Furosemide 20 Mg/2 Ml Vial) 20 mg IVPUSH DAILY [facility]; Protocol Glucose (Glucose Gel 15 Gm Gel..Gram.) 15 gm PO Q15M PRN; Protocol PRN Reason: per Hypoglycemia Standing Ord. Hydralazine HCl (Hydralazine Hcl 10 Mg Tablet) 10 mg PO BID [facility]; Protocol Dextrose (D10) 250 mls @ 750 mls/hr IV Q15M PRN; Protocol PRN Reason: per Hypoglycemia Standing Ord. Insulin Glargine (Insulin Glargine,Hum.Rec.Anlog 100 Unit/Ml 10 Ml Vial) 8 unit SUBCUT BEDTIME [facility] Last Admin: 05/12/24 20:19 Dose: 8 unit Documented By: GABRIEL Insulin Human Lispro (Insulin Lispro 100 Unit/Ml 3 Ml Vial) 0 unit SUBCUT QIDACHS [facility]; Protocol Last Admin: 05/13/24 08:48 Dose: Not Given Documented By: ALEISHA Non-Admin Reason: No Insulin Coverage Isosorbide Dinitrate (Isosorbide Dinitrate 5 Mg Tablet) 5 mg PO BID [facility]; Protocol Levalbuterol HCl (Levalbuterol Hcl 1.25 Mg/3 Ml Vial.Neb) 1.25 mg INHALE Q4H PRN PRN Reason: wheezing\Dyspnea Last Admin: 05/12/24 22:29 Dose: 1.25 mg Documented By: MARICEL Magnesium Hydroxide (Milk Of Magnesia 30 Ml Oral.Susp) 30 ml PO DAILY PRN PRN Reason: Constipation Melatonin (Melatonin 3 Mg Tablet) 6 mg PO BEDTIME PRN PRN Reason: Insomnia Last Admin: 05/12/24 20:19 Dose: 6 mg Documented By: GABRIEL Metoprolol Tartrate (Metoprolol Tartrate 100 Mg Tablet) 200 mg PO BID [facility]; Protocol Last Admin: 05/13/24 08:49 Dose: 200 mg Documented By: ALEISHA Nortriptyline HCl (Nortriptyline Hcl 25 Mg Capsule) 25 mg PO BEDTIME [facility] Last Admin: 05/12/24 20:19 Dose: 25 mg Documented By: GABRIEL Omeprazole (Omeprazole 40 Mg Capsule.Dr) 40 mg PO DAILY@0630 [facility] Last Admin: 05/13/24 08:48 Dose: 40 mg Documented By: ALEISHA Ondansetron HCl (Ondansetron Hcl 4 Mg/2 Ml Vial) 4 mg IVPUSH Q8H PRN PRN Reason: Nausea and Vomiting Oxycodone HCl (Oxycodone Hcl Immed Release 5 Mg Tablet) 5 mg PO Q6H PRN PRN Reason: Pain, Moderate(Pain Scale 4-6) Risperidone (Risperidone 0.5 Mg Tablet) 0.5 mg PO BID [facility] Last Admin: 05/13/24 08:49 Dose: 0.5 mg Documented By: ALEISHA Sodium Chloride (0.9 % Sodium Chloride Flush 3 Ml Syringe) 3 ml IVFLUSH QSHIFT [facility] Last Admin: 05/13/24 08:48 Dose: 3 ml Documented By: ALEISHA Trazodone HCl (Trazodone Hcl 50 Mg Tablet) 50 mg PO BEDTIME PRN PRN Reason: Insomnia Last Admin: 05/12/24 22:03 Dose: 50 mg Documented By: GABRIEL Labs 05/13/24 06:53 05/13/24 06:53 Labs: Laboratory Results - last 24 hr 05/12/24 05/12/24 05/12/24 11:13 15:59 20:00 MCV MCH MCHC RDW Plt Count MPV Immature Gran % (Auto) Neut % (Auto) Lymph % (Auto) [place] % (Auto) Eos % (Auto) Baso % (Auto) Lymph # (Auto) [place] # (Auto) Eos # (Auto) Baso # (Auto) Abs Immat Gran (auto) Absolute Neuts (auto) Absolute Nucleated RBC Nucleated RBC % (auto) Anion Gap Estim Creat Clear Calc Estimated GFR POC Glucose 83 118 H 239 H Random Glucose Calcium Magnesium B-Natriuretic Peptide 05/13/24 05/13/24 06:53 07:42 MCV 89.3 MCH 29.3 MCHC 32.8 RDW 15.6 Plt Count 262 MPV 10.6 Immature Gran % (Auto) 0.5 H Neut % (Auto) 74.9 H Lymph % (Auto) 14.9 L [place] % (Auto) 8.8 Eos % (Auto) 0.8 Baso % (Auto) 0.1 Lymph # (Auto) 1.6 [place] # (Auto) 0.9 Eos # (Auto) 0.1 Baso # (Auto) 0.0 Abs Immat Gran (auto) 0.05 H Absolute Neuts (auto) 7.9 Absolute Nucleated RBC 0.000 Nucleated RBC % (auto) 0.0 Anion Gap 18 Estim Creat Clear Calc 22.5 Estimated GFR 31 POC Glucose 129 H Random Glucose 121 H Calcium 8.8 Magnesium 1.7 B-Natriuretic Peptide 1175 H Assessment and Plan (1) Acute exacerbation of CHF (congestive heart failure): Status: Acute (2) Tobacco abuse: Status: Chronic (3) Acute hypoxic respiratory failure: Status: Acute Plan d4 78yo F with CAD, PAD, carotid occlusive disease, HTN, COPD, CKD3, DM2, GERD, hiatal hernia, MDD, recent admission to [facility] for hallucinations presented with 2d of dyspnea, found to be hypoxic to 88% by EMS admitted for AHRF due to CHF exacerbation went into rapid AF 05/12, converted to NSR on amiodarone drip AHRF due to acute/chronic HFrEF ischemic cardiomyopathy - TTE 05/11/24: Severely reduced LV ejection fraction of 25-30% with underlying regional wall motion abnormalities suggestive of ischemic cardiomyopathy 2. [id number] mitral regurgitation 3. Normal RV systolic pressure 4. No gross pericardial effusion - continue IV diuresis with furosemide but decrease to 20mg daily, follow I/O + lytes + BNP - d/c valsartan due to LAURO; will start isosorbide dinitrate 5 mg bid + hydralazine 10 mg bid - wean O2 as tolerated AF/RVR, new-onset - now in NSR; change amiodarone IV gtt to PO 400 mg bid x 14d then 200 mg daily - continue metoprolol tartrate - decrease apixaban from 5 to 2.5 mg bid given LAURO and wt <60kg; if SCr improves to 1.5 or less, increase back to 5 mg bid LAURO/CKD3 - d/c valsartan as above; recheck BMP in AM COPD not in acute exacerbation - continue nebs + home inhalers DM2 - continue basal-bolus insulin; hold Tradjent, Farxiga, netglinide, and MTF HTN - continue metoprolol tartrate; adding hydralazine + isosorbide dinitrate as above PAD CAD - continue ASA, atorvastatin GERD - PPI tobacco abuse - declines NRT mood disorder dementia - continue donepezil, nortriptyline, trazodone, risperidone VTE ppx - apixaban dispo - PT consult In my clinical judgment, the patient requires continued inpatient hospitalization for the following reasons: LAURO, IV diuresis Total time managing care of this patient today: 45 minutes. Quality Stroke Does the patient have a stroke diagnosis?: No VTE Prior VTE?: No VTE Risk Level:: Medical - moderate - high VTE Device Contraindication: Treatment Not Indicated VTE Drug Contraindication: N/A - Med Ordered
[2024-05-13] MEDS: Amiodarone HCL 200 MG TABLET 400 MG PO ×2 (10:18→19:56)
[2024-05-13 11:14] LABS: Glucose, Whole Blood 136 mg/dL (60-115)
--- NOTE | 2024-05-13 14:49 | MHC.CM.PN ---
PT rec. STR for pt., CM spoke to pt. to determine her choice of STR, and she said NO to going to STR. She active with [facility], and so will go home and resume their services.
[2024-05-13 16:13] LABS: Glucose, Whole Blood 236 mg/dL (60-115)
[2024-05-13] MEDS: Insulin Lispro 100 UNIT/ML 3 ML VIAL SUBCUT ×2 (16:27→21:30)
--- NOTE | 2024-05-13 18:36 | PC.NURSE ---
patients daughter annabel rene would like to talk to field case manager regarding concerns on how to care for her mother moving forward. she lives an hour away and patient lives alone. daughter made aware of patient refusal at this time for a cardiac cath.
--- NOTE | 2024-05-13 18:40 | PC.NURSE ---
annabel rene - home number, cell phone
[2024-05-13] MEDS: Nortriptyline HCl 25 MG CAPSULE PO (19:55)
[2024-05-13] MEDS: Apixaban 2.5 MG TABLET PO (19:55)
[2024-05-13] MEDS: Donepezil HCl 5 MG TABLET PO (19:56)
[2024-05-13] MEDS: Atorvastatin Calcium 40 MG TABLET PO (19:56)
[2024-05-13] MEDS: Insulin Glargine,Hum.rec.anlog 100 UNIT/ML 10 ML VIAL 8 UNIT SUBCUT (19:57)
[2024-05-13] MEDS: Isosorbide Dinitrate 5 MG TABLET PO (20:01)
[2024-05-13] MEDS: hydrALAZINE HCl 10 MG TABLET PO (20:01)
[2024-05-13 21:09] LABS: Glucose, Whole Blood 167 mg/dL (60-115)
[2024-05-14] VITALS (18 sets, daily range): BP systolic 109–143; BP diastolic 45–69; PULSE 69–119; RESP 16–20; TEMP 36.2–37.2; O2SAT 85–100; BMI 22.7
[2024-05-14] MEDS: levalbuterol HCL 1.25 MG/3 ML VIAL.NEB INHALE (00:11)
[2024-05-14] MEDS: 0.9 % Sodium Chloride Flush 3 ML SYRINGE IVFLUSH ×3 (00:15→20:19)
[2024-05-14] MEDS: ondansetron HCL 4 MG/2 ML VIAL IVPUSH (00:18)
[2024-05-14] MEDS: Omeprazole 40 MG CAPSULE.DR PO (06:26)
[2024-05-14] MEDS: Fluticasone/Vilanterol 100/25 BLST.W.DEV 1 PUFF INHALE (07:23)
[2024-05-14] MEDS: Albuterol/Iprat 2.5/0.5MG 3 ML AMPUL.NEB INHALE ×3 (07:23→18:55)
[2024-05-14 07:28] LABS: Anion Gap 17 (12-20); Blood Urea Nitrogen 26 mg/dL (9-16); Calcium 8.5 mg/dL (8.4-10.2); Carbon Dioxide 23 mmol/L (22-29); Chloride 100 mmol/L (96-108); Creatinine Clr Calc Pharmacy 21.1; Estimated Glomerular Filt Rate 29; Glucose Random 199 mg/dL (60-115); Magnesium 1.6 mg/dL (1.6-2.6); Potassium 3.6 mmol/L (3.3-5.1); Sodium 136 mmol/L (135-145)
[2024-05-14 07:30] LABS: B Type Natriuretic Peptide 1650 pg/mL (<100)
[2024-05-14 07:42] LABS: Glucose, Whole Blood 194 mg/dL (60-115)
[2024-05-14] MEDS: Insulin Lispro 100 UNIT/ML 3 ML VIAL SUBCUT ×3 (08:29→20:18)
[2024-05-14] MEDS: Metoprolol Tartrate 100 MG TABLET 200 MG PO ×2 (08:30→20:09)
[2024-05-14] MEDS: Aspirin Enteric Coated 81 MG TABLET.DR PO (08:30)
[2024-05-14] MEDS: Furosemide 20 MG/2 ML VIAL IVPUSH (08:30)
[2024-05-14] MEDS: Amiodarone HCL 200 MG TABLET 400 MG PO (08:30)
[2024-05-14] MEDS: Isosorbide Dinitrate 5 MG TABLET PO (08:30)
[2024-05-14] MEDS: risperiDONE 0.5 MG TABLET PO ×2 (08:30→20:07)
[2024-05-14] MEDS: Apixaban 2.5 MG TABLET PO ×2 (08:30→20:10)
[2024-05-14] MEDS: hydrALAZINE HCl 10 MG TABLET PO (08:32)
--- NOTE | 2024-05-14 09:34 | PM.PNCARD ---
Subjective Subjective Date of Service: 05/14/24 Principal diagnosis: Atrial fibrillation, cardiomyopathy. Interval history: Patient was having lot of atrial ectopy and while I was in the room she converted to atrial fibrillation rapid ventricular response. She said her breathing is better with oxygen but still remain short of breath. Not as bad as when she came in. Her creatinine is still rising. Blood pressure is elevated. Review of Systems Constitutional: Reports no additional constitutional complaints Cardiovascular: Denies chest pain, Denies rapid heart rate, Denies lightheadedness, Denies Loss of Consciousness and Reports dyspnea on exertion Respiratory: Reports dyspnea on exertion Gastrointestinal: Reports no additional gastrointestinal complaints Physical Exam Vital Signs: Last Vital Signs Temp 97.9 F 05/14/24 07:56 Pulse 82 05/14/24 07:56 Resp 20 05/14/24 07:56 BP 143/64 H 05/14/24 07:56 Pulse Ox 96 05/14/24 07:56 O2 Del Method Nasal Cannula 05/14/24 07:56 O2 Flow Rate 2 05/14/24 07:56 Oxygen Flow Rate 2 05/10/24 10:50 BMI result Body Mass Index 22.7 Const General: cooperative and in distress mild and respiratory Nutritional Appearance: thin Orientation/consciousness: patient oriented x3 Neck Neck: Yes trachea midline, Yes supple and Yes no JVD Resp Auscultation: rales and diminished lung sounds Cardio Rate: regular rate and tachycardic Rhythm: abnormal rhythm irregularly irregular Heart sounds: S1 normal heart sound present and S2 normal heart sound present GI Auscultation: normal bowel sounds Skin General skin exam: no rashes or lesions noted Neuro General: patient oriented x3 and no focal motor deficits Extrem General: Yes no clubbing, cyanosis or edema Psych Affect: Anxious affect present and Irritable affect present Objective Labs and Meds 05/13/24 06:53 05/14/24 06:33 Lab results: Laboratory Results - last 24 hr 05/13/24 05/13/24 05/13/24 11:09 15:57 20:54 Sodium Potassium Chloride Carbon Dioxide Anion Gap BUN Creatinine Estim Creat Clear Calc Estimated GFR POC Glucose 136 H 236 H 167 H Random Glucose Calcium Magnesium B-Natriuretic Peptide 05/14/24 05/14/24 06:33 07:10 Sodium 136 Potassium 3.6 Chloride 100 Carbon Dioxide 23 Anion Gap 17 BUN 26 H Creatinine 1.71 H Estim Creat Clear Calc 21.1 Estimated GFR 29 POC Glucose 194 H Random Glucose 199 H Calcium 8.5 Magnesium 1.6 B-Natriuretic Peptide 1650 H Progress Note: A&P Assessment and plan (1) Atrial fibrillation with rapid ventricular response: Status: Acute Assessment and Plan: Atrial fibrillation rapid ventricular response, recurrent. She had most likely will require recurrent IV amiodarone drip. Continue Eliquis therapy. She did better with rhythm control approach and will have to pursue the same. Although not sure if she will maintain rhythm. Full disclosure cardiac telemetry. Patient not ready to be discharged home although she says that she wants to go home. (2) Acute exacerbation of CHF (congestive heart failure): Status: Acute Assessment and Plan: Came with acute respiratory failure with heart failure although clinically not creatinine is up she was significant LV systolic dysfunction high likelihood of underlying significant obstructive coronary disease. At this point time she will require cardiac catheterization although she says she wants to go home 1st. Does not know. To be in overt heart failure. Hold off on Lasix today. Will further uptitrate hydralazine to 25 mg b.i.d. and Isordil to 10 mg b.i.d.. Overall prognosis guarded. Continue oxygen therapy not sure if she requires this on a long-term basis. Continue pulmonary treatment. Will follow with you if patient is still in the hospital Time Spent With Patient Time: Total time managing care of this patient today ____ minutes. Progress Note: Quality Stroke Does the patient have a stroke diagnosis?: No Procedures Date of Service Date of Service: 05/14/24
[2024-05-14] MEDS: Amiodarone/Dextrose 150 MG/100 ML PLAST..BAG 600 MG IV (11:32)
[2024-05-14 11:46] LABS: Glucose, Whole Blood 192 mg/dL (60-115)
[2024-05-14] MEDS: Amiodarone HCL 900 MG in 0.9 % Sodium Chloride 500 ML 34.53 MG IVCONT (11:51)
--- NOTE | 2024-05-14 12:35 | P.PNIM_ITS ---
Subjective Subjective Date of Service: 05/14/24 Interval History: Feels anxious wants to be discharged home, feels shortness of breath is better, denies chest pain, no palpitations, no fevers, no chills, no dizziness or lightheadedness, converted to atrial fibrillation with rapid ventricular response despite being on loading amiodarone dose. Review of Systems All other system reviewed and negative Physical Exam 2 Vital Signs: Vital Signs: Last Vital Signs Temp 98.9 F 05/14/24 11:02 Pulse 119 H 05/14/24 11:02 Resp 20 05/14/24 11:02 BP 111/69 05/14/24 11:02 Pulse Ox 96 05/14/24 11:36 O2 Del Method Room Air 05/14/24 11:36 O2 Flow Rate 2 05/14/24 11:36 Oxygen Flow Rate 2 05/10/24 10:50 BMI result Body Mass Index 22.7 Const: Other: Gen: Awake alert x3, anxious, in no acute distress HEENT: sclera anicteric, moist mucus membranes Neck: supple, no JVD Lungs: diminished, no crackles Heart: Irregularly irregular Abd: soft, non-tender, non-distended, bowel sounds audible Ext: no edema Skin: warm/well-perfused Neuro: alert and oriented x3, no focal findings Psych: Anxious Objective Data Active Medications Acetaminophen (Acetaminophen 325 Mg Tablet) 650 mg PO Q6H PRN PRN Reason: Pain, Mild (Pain Scale 1-3), fever or headache Last Admin: 05/10/24 20:56 Dose: 650 mg Documented By: GINA Albuterol/Ipratropium (Albuterol/Iprat 2.5/0.5mg 3 Ml Ampul.Neb) 3 ml INHALE RQ6H WHILE AWAKE [facility] Last Admin: 05/14/24 07:23 Dose: 3 ml Documented By: AYE Apixaban (Apixaban 2.5 Mg Tablet) 2.5 mg PO BID [facility] Last Admin: 05/14/24 08:30 Dose: 2.5 mg Documented By: CODY Aspirin (Aspirin Enteric Coated 81 Mg Tablet.) 81 mg PO DAILY [facility] Last Admin: 05/14/24 08:30 Dose: 81 mg Documented By: CODY Atorvastatin Calcium (Atorvastatin Calcium 40 Mg Tablet) 40 mg PO BEDTIME [facility] Last Admin: 05/13/24 19:56 Dose: 40 mg Documented By: MAYELA Benzonatate (Benzonatate 100 Mg Capsule) 100 mg PO TID PRN PRN Reason: Cough Last Admin: 05/11/24 23:56 Dose: 100 mg Documented By: ROHIT Calcium Carbonate (Calcium Carbonate 750 Mg Tab.Chew) 750 mg PO Q4H PRN PRN Reason: Heartburn Donepezil HCl (Donepezil Hcl 5 Mg Tablet) 5 mg PO BEDTIME [facility] Last Admin: 05/13/24 19:56 Dose: 5 mg Documented By: MAYELA Fluticasone/Vilanterol (Fluticasone/Vilanterol 100/25 Blst.W.Dev) 1 puff INHALE RDAILY [facility] Last Admin: 05/14/24 07:23 Dose: 1 puff Documented By: AYE Glucose (Glucose Gel 15 Gm Gel..Gram.) 15 gm PO Q15M PRN; Protocol PRN Reason: per Hypoglycemia Standing Ord. Hydralazine HCl (Hydralazine Hcl 25 Mg Tablet) 25 mg PO BID [facility]; Protocol Dextrose (D10) 250 mls @ 750 mls/hr IV Q15M PRN; Protocol PRN Reason: per Hypoglycemia Standing Ord. Amiodarone HCl 900 mg/ Sodium (Chloride) 518 mls @ 34.533 mls/hr IVCONT .Q15H1M [facility]; Protocol Last Admin: 05/14/24 11:51 Dose: 1 mg/min, 34.53 mls/hr Documented By: CODY Insulin Glargine (Insulin Glargine,Hum.Rec.Anlog 100 Unit/Ml 10 Ml Vial) 8 unit SUBCUT BEDTIME [facility] Last Admin: 05/13/24 19:57 Dose: 8 unit Documented By: MAYELA Insulin Human Lispro (Insulin Lispro 100 Unit/Ml 3 Ml Vial) 0 unit SUBCUT QIDACHS [facility]; Protocol Last Admin: 05/14/24 11:59 Dose: 2 unit Documented By: CODY Isosorbide Dinitrate (Isosorbide Dinitrate 10 Mg Tablet) 10 mg PO BID [facility]; Protocol Levalbuterol HCl (Levalbuterol Hcl 1.25 Mg/3 Ml Vial.Neb) 1.25 mg INHALE Q4H PRN PRN Reason: wheezing\Dyspnea Last Admin: 05/14/24 00:11 Dose: 1.25 mg Documented By: MARICEL Magnesium Hydroxide (Milk Of Magnesia 30 Ml Oral.Susp) 30 ml PO DAILY PRN PRN Reason: Constipation Melatonin (Melatonin 3 Mg Tablet) 6 mg PO BEDTIME PRN PRN Reason: Insomnia Last Admin: 05/12/24 20:19 Dose: 6 mg Documented By: GABRILE Metoprolol Tartrate (Metoprolol Tartrate 100 Mg Tablet) 200 mg PO BID [facility]; Protocol Last Admin: 05/14/24 08:30 Dose: 200 mg Documented By: CODY Nortriptyline HCl (Nortriptyline Hcl 25 Mg Capsule) 25 mg PO BEDTIME [facility] Last Admin: 05/13/24 19:55 Dose: 25 mg Documented By: MAYELA Omeprazole (Omeprazole 40 Mg Capsule.) 40 mg PO DAILY@0630 [facility] Last Admin: 05/14/24 06:26 Dose: 40 mg Documented By: TIFFANY Ondansetron HCl (Ondansetron Hcl 4 Mg/2 Ml Vial) 4 mg IVPUSH Q8H PRN PRN Reason: Nausea and Vomiting Last Admin: 05/14/24 00:18 Dose: 4 mg Documented By: TIFFANY Oxycodone HCl (Oxycodone Hcl Immed Release 5 Mg Tablet) 5 mg PO Q6H PRN PRN Reason: Pain, Moderate(Pain Scale 4-6) Risperidone (Risperidone 0.5 Mg Tablet) 0.5 mg PO BID [facility] Last Admin: 05/14/24 08:30 Dose: 0.5 mg Documented By: CODY Sodium Chloride (0.9 % Sodium Chloride Flush 3 Ml Syringe) 3 ml IVFLUSH QSHIFT [facility] Last Admin: 05/14/24 08:32 Dose: 3 ml Documented By: CODY Trazodone HCl (Trazodone Hcl 50 Mg Tablet) 50 mg PO BEDTIME PRN PRN Reason: Insomnia Last Admin: 05/12/24 22:03 Dose: 50 mg Documented By: GABRIEL Labs 05/13/24 06:53 05/14/24 06:33 Labs: Laboratory Results - last 24 hr 05/13/24 05/13/24 05/14/24 15:57 20:54 06:33 Anion Gap 17 Estim Creat Clear Calc 21.1 Estimated GFR 29 POC Glucose 236 H 167 H Random Glucose 199 H Calcium 8.5 Magnesium 1.6 B-Natriuretic Peptide 1650 H 05/14/24 05/14/24 07:10 11:34 Anion Gap Estim Creat Clear Calc Estimated GFR POC Glucose 194 H 192 H Random Glucose Calcium Magnesium B-Natriuretic Peptide Assessment and Plan (1) Atrial fibrillation with rapid ventricular response: Status: Acute Plan 78yo F with CAD, PAD, carotid occlusive disease, HTN, COPD, CKD3, DM2, GERD, hiatal hernia, MDD, recent admission to [facility] for hallucinations, presented with 2d of dyspnea, found to be hypoxic to 88% by EMS admitted for AHRF due to CHF exacerbation, went into rapid AF 05/12, converted to NSR on amiodarone drip and went back to AFib with RVR this morning. Acute hypoxic respiratory failure due to acute/chronic HFrEF ischemic cardiomyopathy - TTE 05/11/24: Severely reduced LV ejection fraction of 25-30% with underlying regional wall motion abnormalities suggestive of ischemic cardiomyopathy 2. [id number] mitral regurgitation 3. Normal RV systolic pressure 4. No gross pericardial effusion - continue IV diuresis with furosemide but decrease to 20mg daily, follow I/O + lytes + BNP - d/c valsartan due to LAURO; will start isosorbide dinitrate 5 mg bid + hydralazine 10 mg bid - wean O2 as tolerated AF/RVR, new-onset - converted to normal sinus rhythm after treatment with amiodarone drip and placed on amiodarone loading dose however converted back to atrial fibrillation with RVR this morning Case discussed with Cardiology they recommend to resume amiodarone drip, continue metoprolol and Eliquis 2.5 b.i.d. low-dose due to LAURO and weight < 60 kilos ,if SCr improves to 1.5 or less, increase back to 5 mg bid - continue metoprolol tartrate LAURO/CKD3 - d/c valsartan and hold Lasix follow BMP COPD not in acute exacerbation - continue nebs + home inhalers DM2 - noted to have elevated blood sugars on Lantus 8 units at bedtime, home dose Lantus 12 units. hold Tradjent, Farxiga, netglinide, and MTF, will place back on Lantus 12 units HTN - continue metoprolol tartrate; will increase dose of hydralazine to 25 mg b.i.d. and isosorbide 10 mg b.i.d. due to elevated blood pressure PAD /CAD - continue ASA, atorvastatin GERD - PPI tobacco abuse - declines NRT mood disorder/dementia - continue donepezil, trazodone, risperidone and DC nortriptyline, since not on it at home will give 1 dose of Ativan due to anxiety VTE ppx - apixaban dispo - PT consult In my clinical judgment, the patient requires continued inpatient hospitalization for the following reasons: LAURO, on IV amiodarone drip Quality Stroke Does the patient have a stroke diagnosis?: No VTE Prior VTE?: No VTE Risk Level:: Medical - moderate - high VTE Device Contraindication: Treatment Not Indicated VTE Drug Contraindication: N/A - Med Ordered
[2024-05-14] MEDS: LORazepam 0.5 MG TABLET PO (13:05)
[2024-05-14 15:41] LABS: Glucose, Whole Blood 73 mg/dL (60-115)
[2024-05-14] MEDS: Insulin Glargine,Hum.rec.anlog 100 UNIT/ML 10 ML VIAL 12 UNIT SUBCUT (20:00)
[2024-05-14] MEDS: hydrALAZINE HCl 25 MG TABLET PO (20:07)
[2024-05-14] MEDS: Donepezil HCl 5 MG TABLET PO (20:07)
[2024-05-14] MEDS: Atorvastatin Calcium 40 MG TABLET PO (20:08)
[2024-05-14] MEDS: Isosorbide Dinitrate 10 MG TABLET PO (20:08)
[2024-05-14 20:15] LABS: Glucose, Whole Blood 210 mg/dL (60-115)
[2024-05-14 21:07] LABS: Glucose, Whole Blood 196 mg/dL (60-115)
[2024-05-15] VITALS (12 sets, daily range): BP systolic 107–134; BP diastolic 53–64; PULSE 62–86; RESP 16–20; TEMP 36.6–37.4; O2SAT 86–100; BMI 22.4
[2024-05-15] MEDS: Omeprazole 40 MG CAPSULE.DR PO (05:39)
[2024-05-15] MEDS: Fluticasone/Vilanterol 100/25 BLST.W.DEV 1 PUFF INHALE (07:52)
[2024-05-15] MEDS: Albuterol/Iprat 2.5/0.5MG 3 ML AMPUL.NEB INHALE ×3 (07:52→19:05)
[2024-05-15 08:18] LABS: Glucose, Whole Blood 56 mg/dL (60-115)
[2024-05-15 08:19] LABS: Anion Gap 17 (12-20); Blood Urea Nitrogen 25 mg/dL (9-16); Calcium 8.8 mg/dL (8.4-10.2); Carbon Dioxide 23 mmol/L (22-29); Chloride 100 mmol/L (96-108); Creatinine Clr Calc Pharmacy 17.8; Estimated Glomerular Filt Rate 24; Potassium 3.5 mmol/L (3.3-5.1); Sodium 136 mmol/L (135-145)
[2024-05-15] MEDS: Isosorbide Dinitrate 10 MG TABLET PO ×2 (08:20→21:23)
[2024-05-15] MEDS: risperiDONE 0.5 MG TABLET PO ×2 (08:20→21:24)
[2024-05-15] MEDS: Glucose Gel 15 GM GEL..GRAM. PO (08:20)
[2024-05-15] MEDS: Aspirin Enteric Coated 81 MG TABLET.DR PO (08:20)
[2024-05-15] MEDS: hydrALAZINE HCl 25 MG TABLET PO ×2 (08:20→21:23)
[2024-05-15] MEDS: Metoprolol Tartrate 100 MG TABLET 200 MG PO ×2 (08:20→21:24)
[2024-05-15] MEDS: 0.9 % Sodium Chloride Flush 3 ML SYRINGE IVFLUSH (08:21)
[2024-05-15] MEDS: Apixaban 2.5 MG TABLET PO ×2 (08:21→21:22)
[2024-05-15 08:22] LABS: Glucose Random 52 mg/dL (60-115)
[2024-05-15 08:42] LABS: Glucose, Whole Blood 89 mg/dL (60-115)
--- NOTE | 2024-05-15 10:19 | PM.PNCARD ---
Subjective Subjective Date of Service: 05/15/24 Principal diagnosis: Atrial fibrillation, cardiomyopathy. Interval history: Patient says she is feeling better. Remains in sinus rhythm after amiodarone drip. However creatinine has gone up. Denies any overt orthopnea PND. With oxygen she says she is breathing better. Denies any chest pain. Review of Systems Constitutional: Reports fatigue and Reports other (Irritable) Cardiovascular: Denies chest pain, Denies rapid heart rate, Denies leg edema, Reports dyspnea on exertion and Denies orthopnea Respiratory: Denies no additional respiratory complaints and Reports dyspnea on exertion Denies system reviewed and no additional complaints, except as documented Endocrine: Reports fatigue Physical Exam Vital Signs: Last Vital Signs Temp 98.1 F 05/15/24 08:00 Pulse 74 05/15/24 08:00 Resp 16 05/15/24 08:00 BP 134/61 05/15/24 08:00 Pulse Ox 97 05/15/24 08:00 O2 Del Method Nasal Cannula 05/15/24 08:00 O2 Flow Rate 1.0 05/15/24 08:00 Oxygen Flow Rate 2 05/10/24 10:50 BMI result Body Mass Index 22.4 Const General: cooperative and in distress mild and respiratory Nutritional Appearance: thin Orientation/consciousness: patient oriented x3 Neck Neck: Yes trachea midline, Yes supple and Yes no JVD Resp Auscultation: rales and diminished lung sounds Cardio Rate: regular rate and tachycardic Rhythm: abnormal rhythm irregularly irregular Heart sounds: S1 normal heart sound present and S2 normal heart sound present GI Auscultation: normal bowel sounds Skin General skin exam: no rashes or lesions noted Neuro General: patient oriented x3 and no focal motor deficits Extrem General: Yes no clubbing, cyanosis or edema Psych Affect: Anxious affect present and Irritable affect present Objective Labs and Meds 05/13/24 06:53 05/15/24 06:53 Lab results: Laboratory Results - last 24 hr 05/14/24 05/14/24 05/14/24 11:34 15:34 19:58 Hold Purple Top Sodium Potassium Chloride Carbon Dioxide Anion Gap BUN Creatinine Estim Creat Clear Calc Estimated GFR POC Glucose 192 H 73 210 H Random Glucose Calcium 05/14/24 05/15/24 05/15/24 21:02 06:53 08:15 Hold Purple Top SEE NOTE Sodium 136 Potassium 3.5 Chloride 100 Carbon Dioxide 23 Anion Gap 17 BUN 25 H Creatinine 2.03 H Estim Creat Clear Calc 17.8 Estimated GFR 24 POC Glucose 196 H 56 L* Random Glucose 52 L* Calcium 8.8 05/15/24 08:38 Hold Purple Top Sodium Potassium Chloride Carbon Dioxide Anion Gap BUN Creatinine Estim Creat Clear Calc Estimated GFR POC Glucose 89 Random Glucose Calcium Progress Note: A&P Assessment and plan (1) Atrial fibrillation with rapid ventricular response: Status: Acute Assessment and Plan: Atrial fibrillation rapid ventricular response again converted to sinus rhythm with improved symptoms. Switch to p.o. amiodarone 400 mg b.i.d. for loading for 2 weeks followed by 200 mg daily. Continue full oral anticoagulation for now as patient was currently refusing cardiac catheterization. Will benefit from rhythm control approach and will continue the same. Continue supportive care for her COPD. Continue oxygen therapy. Avoidance of stimulants was discussed. (2) Acute exacerbation of CHF (congestive heart failure): Status: Acute Assessment and Plan: Heart failure on admission related to significant LV systolic dysfunction most likely related to underlying significant coronary artery disease. Requires cardiac catheterization although she is currently refusing and said wants to go home. Creatinine is going up most likely due to addition of angiotensin receptor blockers in the early part of the hospitalization for neurohormonal modulation as his diuresis. Clinically appears to be euvolemic. Continue to hold Lasix. Continue trend creatinine. Not ready to go home. Again discussed cardiac catheterization but she wants to hold off on it. Continue hydralazine and Isordil for vasodilators treatment. Will follow with you Time Spent With Patient Time: Total time managing care of this patient today ____ minutes. Progress Note: Quality Stroke Does the patient have a stroke diagnosis?: No Procedures Date of Service Date of Service: 05/15/24
[2024-05-15] MEDS: 0.9 % Sodium Chloride 500 ML 80 ML IVCONT (10:43)
[2024-05-15 11:53] LABS: Glucose, Whole Blood 214 mg/dL (60-115)
[2024-05-15] MEDS: Insulin Lispro 100 UNIT/ML 3 ML VIAL SUBCUT ×2 (12:21→21:41)
--- NOTE | 2024-05-15 14:26 | P.PNIM_ITS ---
Subjective Subjective Date of Service: 05/15/24 Interval History: Feeling better offers no acute complaints, denies shortness of breath, no chest pain, no palpitation has decreased by mouth intake, noted to have worsening creatinine, noted to have 6 beat run of nonsustained V-tach patient remained asymptomatic. Review of Systems All other system reviewed and are negative Physical Exam 2 Vital Signs: Vital Signs: Last Vital Signs Temp 98.9 F 05/15/24 12:00 Pulse 75 05/15/24 12:00 Resp 18 05/15/24 12:00 BP 115/59 L 05/15/24 12:00 Pulse Ox 97 05/15/24 12:35 O2 Del Method Nasal Cannula 05/15/24 12:35 O2 Flow Rate 1 05/15/24 12:35 Oxygen Flow Rate 2 05/10/24 10:50 BMI result Body Mass Index 22.4 Const: Other: Gen: Awake alert x3, in no acute distress HEENT: sclera anicteric, moist mucus membranes Neck: supple, no JVD Lungs: diminished, no crackles Heart: Regular Abd: soft, non-tender, non-distended, bowel sounds audible Ext: no edema Skin: warm/well-perfused Neuro: alert and oriented x3, no focal findings Psych: Appropriate affect Objective Data Active Medications Acetaminophen (Acetaminophen 325 Mg Tablet) 650 mg PO Q6H PRN PRN Reason: Pain, Mild (Pain Scale 1-3), fever or headache Last Admin: 05/10/24 20:56 Dose: 650 mg Documented By: GINA Albuterol/Ipratropium (Albuterol/Iprat 2.5/0.5mg 3 Ml Ampul.Neb) 3 ml INHALE RQ6H WHILE AWAKE [facility] Last Admin: 05/15/24 07:52 Dose: 3 ml Documented By: AYE Apixaban (Apixaban 2.5 Mg Tablet) 2.5 mg PO BID [facility] Last Admin: 05/15/24 08:21 Dose: 2.5 mg Documented By: CODY Aspirin (Aspirin Enteric Coated 81 Mg Tablet.) 81 mg PO DAILY [facility] Last Admin: 05/15/24 08:20 Dose: 81 mg Documented By: CODY Atorvastatin Calcium (Atorvastatin Calcium 40 Mg Tablet) 40 mg PO BEDTIME [facility] Last Admin: 05/14/24 20:08 Dose: 40 mg Documented By: NALDO Benzonatate (Benzonatate 100 Mg Capsule) 100 mg PO TID PRN PRN Reason: Cough Last Admin: 05/11/24 23:56 Dose: 100 mg Documented By: ROHIT Calcium Carbonate (Calcium Carbonate 750 Mg Tab.Chew) 750 mg PO Q4H PRN PRN Reason: Heartburn Donepezil HCl (Donepezil Hcl 5 Mg Tablet) 5 mg PO BEDTIME [facility] Last Admin: 05/14/24 20:07 Dose: 5 mg Documented By: NALDO Fluticasone/Vilanterol (Fluticasone/Vilanterol 100/25 Blst.W.Dev) 1 puff INHALE RDAILY [facility] Last Admin: 05/15/24 07:52 Dose: 1 puff Documented By: AYE Glucose (Glucose Gel 15 Gm Gel..Gram.) 15 gm PO Q15M PRN; Protocol PRN Reason: per Hypoglycemia Standing Ord. Last Admin: 05/15/24 08:20 Dose: 15 gm Documented By: CODY Hydralazine HCl (Hydralazine Hcl 25 Mg Tablet) 25 mg PO BID [facility]; Protocol Last Admin: 05/15/24 08:20 Dose: 25 mg Documented By: CODY Dextrose (D10) 250 mls @ 750 mls/hr IV Q15M PRN; Protocol PRN Reason: per Hypoglycemia Standing Ord. Amiodarone HCl 900 mg/ Sodium (Chloride) 518 mls @ 34.533 mls/hr IVCONT .Q15H1M [facility]; Protocol Last Admin: 05/15/24 05:35 Dose: Not Given Documented By: NALDO Non-Admin Reason: Medication Discontinued Sodium Chloride (Ns) 500 mls @ 80 mls/hr IVCONT .Q6H15M [facility] Stop: 05/15/24 16:44 Last Admin: 05/15/24 10:43 Dose: 80 mls/hr Documented By: CODY Insulin Glargine (Insulin Glargine,Hum.Rec.Anlog 100 Unit/Ml 10 Ml Vial) 12 unit SUBCUT BEDTIME [facility] Last Admin: 05/14/24 20:00 Dose: 12 unit Documented By: NALDO Insulin Human Lispro (Insulin Lispro 100 Unit/Ml 3 Ml Vial) 0 unit SUBCUT QIDACHS [facility]; Protocol Last Admin: 05/15/24 12:21 Dose: 6 unit Documented By: CODY Isosorbide Dinitrate (Isosorbide Dinitrate 10 Mg Tablet) 10 mg PO BID [facility]; Protocol Last Admin: 05/15/24 08:20 Dose: 10 mg Documented By: CODY Levalbuterol HCl (Levalbuterol Hcl 1.25 Mg/3 Ml Vial.Neb) 1.25 mg INHALE Q4H PRN PRN Reason: wheezing\Dyspnea Last Admin: 05/14/24 00:11 Dose: 1.25 mg Documented By: MARICEL Magnesium Hydroxide (Milk Of Magnesia 30 Ml Oral.Susp) 30 ml PO DAILY PRN PRN Reason: Constipation Melatonin (Melatonin 3 Mg Tablet) 6 mg PO BEDTIME PRN PRN Reason: Insomnia Last Admin: 05/12/24 20:19 Dose: 6 mg Documented By: GABRIEL Metoprolol Tartrate (Metoprolol Tartrate 100 Mg Tablet) 200 mg PO BID [facility]; Protocol Last Admin: 05/15/24 08:20 Dose: 200 mg Documented By: CODY Omeprazole (Omeprazole 40 Mg Capsule.) 40 mg PO DAILY@0630 [facility] Last Admin: 05/15/24 05:39 Dose: 40 mg Documented By: NALDO Ondansetron HCl (Ondansetron Hcl 4 Mg/2 Ml Vial) 4 mg IVPUSH Q8H PRN PRN Reason: Nausea and Vomiting Last Admin: 05/14/24 00:18 Dose: 4 mg Documented By: TIFFANY Oxycodone HCl (Oxycodone Hcl Immed Release 5 Mg Tablet) 5 mg PO Q6H PRN PRN Reason: Pain, Moderate(Pain Scale 4-6) Risperidone (Risperidone 0.5 Mg Tablet) 0.5 mg PO BID [facility] Last Admin: 05/15/24 08:20 Dose: 0.5 mg Documented By: CODY Sodium Chloride (0.9 % Sodium Chloride Flush 3 Ml Syringe) [address] [facility] Last Admin: 05/15/24 08:21 Dose: 3 ml Documented By: CODY Trazodone HCl (Trazodone Hcl 50 Mg Tablet) 50 mg PO BEDTIME PRN PRN Reason: Insomnia Last Admin: 05/12/24 22:03 Dose: 50 mg Documented By: GABRIEL Labs 05/13/24 06:53 05/15/24 06:53 Labs: Laboratory Results - last 24 hr 05/14/24 05/14/24 05/14/24 15:34 19:58 21:02 Hold Purple Top Anion Gap Estim Creat Clear Calc Estimated GFR POC Glucose 73 210 H 196 H Random Glucose Calcium 05/15/24 05/15/24 05/15/24 06:53 08:15 08:38 Hold Purple Top SEE NOTE Anion Gap 17 Estim Creat Clear Calc 17.8 Estimated GFR 24 POC Glucose 56 L* 89 Random Glucose 52 L* Calcium 8.8 05/15/24 11:49 Hold Purple Top Anion Gap Estim Creat Clear Calc Estimated GFR POC Glucose 214 H Random Glucose Calcium Assessment and Plan (1) Atrial fibrillation with rapid ventricular response: Status: Acute (2) Acute exacerbation of CHF (congestive heart failure): Status: Acute Plan 78yo F with CAD, PAD, carotid occlusive disease, HTN, COPD, CKD3, DM2, GERD, hiatal hernia, MDD, recent admission to [facility] for hallucinations, presented with 2d of dyspnea, found to be hypoxic to 88% by EMS admitted for AHRF due to CHF exacerbation, went into rapid AF 05/12, converted to NSR on amiodarone drip and went back to AFib with RVR this morning. Acute hypoxic respiratory failure due to acute/chronic HFrEF ischemic cardiomyopathy - TTE 05/11/24: Severely reduced LV ejection fraction of 25-30% with underlying regional wall motion abnormalities suggestive of ischemic cardiomyopathy 2. [id number] mitral regurgitation 3. Normal RV systolic pressure 4. No gross pericardial effusion - diuretics discontinue since patient appears euvolemic , continue isosorbide 10 mg b.i.d. and hydralazine 25 mg b.i.d. - valsartan discontinued due to LAURO -wean oxygen as tolerated, home O2 eval prior to discharge AF/RVR, new-onset - converted to normal sinus rhythm after treatment with amiodarone drip and placed on amiodarone loading dose however converted back to atrial fibrillation with RVR on 05/14 Therefore placed back on amiodarone drip, and converted back to normal sinus rhythm continue metoprolol and Eliquis 2.5 b.i.d. low-dose due to LAURO and weight < 60 kilos ,if SCr improves to 1.5 or less, increase back to 5 mg bid - continue metoprolol tartrate -will DC IV amiodarone drip and place back on amiodarone loading dose 400 mg by mouth b.i.d. LAURO/CKD3 -noted to have worsening creatinine, valsartan and Lasix discontinued , will give 500 mL IV fluid and follow BMP COPD not in acute exacerbation - continue nebs + home inhalers DM2 - noted to have elevated blood sugars on Lantus 8 units at bedtime, home dose Lantus 12 units. hold Tradjent, Farxiga, netglinide, and MTF, will place back on Lantus 12 units HTN - continue metoprolol tartrate; hydralazine 25 mg b.i.d. and isosorbide 10 mg b.i.d. stable BP PAD /CAD - continue ASA, atorvastatin GERD - PPI tobacco abuse - declines NRT mood disorder/dementia - continue donepezil, trazodone, risperidone and DC nortriptyline, since not on it at home VTE ppx - apixaban dispo - PT consult In my clinical judgment, the patient requires continued inpatient hospitalization for the following reasons: LAURO, recurrent AFib. Quality Stroke Does the patient have a stroke diagnosis?: No VTE Prior VTE?: No VTE Risk Level:: Medical - moderate - high VTE Device Contraindication: Treatment Not Indicated VTE Drug Contraindication: N/A - Med Ordered
[2024-05-15] MEDS: Potassium Chloride ER 20 MEQ TAB.ER.PRT PO (14:36)
[2024-05-15] MEDS: Magnesium Oxide 400 MG TABLET PO (14:36)
[2024-05-15 16:27] LABS: Glucose, Whole Blood 94 mg/dL (60-115)
[2024-05-15 21:10] LABS: Glucose, Whole Blood 234 mg/dL (60-115)
[2024-05-15] MEDS: Amiodarone HCL 200 MG TABLET 400 MG PO (21:22)
[2024-05-15] MEDS: Atorvastatin Calcium 40 MG TABLET PO (21:22)
[2024-05-15] MEDS: Donepezil HCl 5 MG TABLET PO (21:23)
[2024-05-15] MEDS: traZODone HCL 50 MG TABLET PO (21:27)
[2024-05-15] MEDS: Insulin Glargine,Hum.rec.anlog 100 UNIT/ML 10 ML VIAL 12 UNIT SUBCUT (21:41)
[2024-05-16] VITALS (9 sets, daily range): BP systolic 131–149; BP diastolic 55–65; PULSE 67–79; RESP 16–20; TEMP 36.1–36.7; O2SAT 96–100; BMI 21.9
[2024-05-16] MEDS: levalbuterol HCL 1.25 MG/3 ML VIAL.NEB INHALE ×2 (01:26→09:30)
[2024-05-16] MEDS: Omeprazole 40 MG CAPSULE.DR PO (06:34)
[2024-05-16 07:13] LABS: Anion Gap 14 (12-20); Blood Urea Nitrogen 26 mg/dL (9-16); Calcium 8.8 mg/dL (8.4-10.2); Carbon Dioxide 20 mmol/L (22-29); Chloride 105 mmol/L (96-108); Creatinine Clr Calc Pharmacy 20.2; Estimated Glomerular Filt Rate 28; Glucose Random 164 mg/dL (60-115); Potassium 3.9 mmol/L (3.3-5.1); Sodium 135 mmol/L (135-145)
[2024-05-16 07:48] LABS: Glucose, Whole Blood 154 mg/dL (60-115)
[2024-05-16] MEDS: Apixaban 2.5 MG TABLET PO ×2 (08:10→21:56)
[2024-05-16] MEDS: Aspirin Enteric Coated 81 MG TABLET.DR PO (08:10)
[2024-05-16] MEDS: Isosorbide Dinitrate 10 MG TABLET PO ×2 (08:10→21:55)
[2024-05-16] MEDS: Insulin Lispro 100 UNIT/ML 3 ML VIAL SUBCUT ×2 (08:11→16:20)
[2024-05-16] MEDS: hydrALAZINE HCl 25 MG TABLET PO ×2 (08:11→21:55)
[2024-05-16] MEDS: Magnesium Oxide 400 MG TABLET PO (08:11)
[2024-05-16] MEDS: risperiDONE 0.5 MG TABLET PO ×2 (08:11→21:55)
[2024-05-16] MEDS: Metoprolol Tartrate 100 MG TABLET 200 MG PO ×2 (08:11→21:55)
[2024-05-16] MEDS: Amiodarone HCL 200 MG TABLET 400 MG PO ×2 (08:11→21:54)
[2024-05-16] MEDS: 0.9 % Sodium Chloride Flush 3 ML SYRINGE IVFLUSH ×3 (08:12→22:10)
--- NOTE | 2024-05-16 08:30 | P.PNNP_ITS ---
Subjective Subjective Date of Service: 05/16/24 Principal diagnosis: Atrial fibrillation, cardiomyopathy. Interval history: 78 y/o female with a medical history of CKD3, CAD, PAD, DMII, HTN, tobacco use, GERD. 05/10 admitted for shortness of breath x2 days, being treated for CHF exacerbation vs PNA She is seen by Dr Sam, nephrology, outpatient for management of CKD has right EFRAIN by doppler study, hx of proteinuria and osteomyelitis of great toe Her creatinine on 05/10 was 1.13, . was 1.37, 05/12 is 1.24- this is around her baseline; 05/13 creatinine increased to 1.6, 1.71, 2.03, then today 1.78 she is receiving IVP lasix for management of fluid overload valsartan started while on diuresis coinciding with increased creatinine patient also has had episodes of afib with RVR on 05/12 and 05/15 Patient states she feels short of breath at rest (in reclinder currently), but states feels better than yesterday she denies abdominal pain, chest pain, dizziness she denies flank pain, dysuria, blood in urine denies chest pain states she continues to struggle with anxiety denies other new symptoms, concerns Physical Exam 2 Vital Signs: Vital Signs: Last Vital Signs Temp 97.3 F 05/16/24 11:24 Pulse 67 05/16/24 11:24 Resp 16 05/16/24 11:24 BP 132/55 L 05/16/24 11:24 Pulse Ox 100 05/16/24 11:24 O2 Del Method Nasal Cannula 05/16/24 11:24 O2 Flow Rate 2 05/16/24 11:24 Oxygen Flow Rate 2 05/10/24 10:50 BMI result Body Mass Index 21.9 Const: General: no acute distress, alert and awake Resp: Effort & Inspection: able to speak in complete sentences and labored Auscultation: crackles and wheezes Cardio: Jugular venous distension: no JVD Rate: regular rate Rhythm: r egular rhythm Heart sounds: S1 normal heart sound present and S2 normal heart sound present GI: Palpation (GI): Soft to palpation and nontender : General: Yes no CVA tenderness Back/Spine/Pelvis: Back: no CVA tenderness Skin: Lesions: no lesions Rashes: no rashes Objective Data Labs 05/13/24 06:53 11/11/24 06:36 Labs: Laboratory Results - last 24 hr 05/15/24 05/15/24 05/15/24 11:49 16:22 21:03 Hold Purple Top Sodium Potassium Chloride Carbon Dioxide Anion Gap BUN Creatinine Estim Creat Clear Calc Estimated GFR POC Glucose 214 H 94 234 H Random Glucose Calcium 05/16/24 05/16/24 05/16/24 06:36 07:40 10:59 Hold Purple Top SEE NOTE Sodium 135 Potassium 3.9 Chloride 105 Carbon Dioxide 20 L Anion Gap 14 BUN 26 H Creatinine 1.78 H Estim Creat Clear Calc 20.2 Estimated GFR 28 POC Glucose 154 H 111 Random Glucose 164 H Calcium 8.8 Procedures Date of Service Date of Service: 05/16/24 Assessment & Plan Assessment and plan (1) CKD (chronic kidney disease) stage 3, GFR 30-59 ml/min: Status: Chronic (2) Acute exacerbation of CHF (congestive heart failure): Status: Acute Plan Patient with baseline 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 on diuretic therapy for CHF exacerbation LAURO likely secondary to renal hypoperfusion from episode of afib with RVR; valsartan in setting of diuresis may have also contributed (agree to hold for now) creatinine improving with diuretics held continue current plan; agree to continue to hold diuresis as creatinine is improving; if she becomes clinically fluid overloaded may resume diuresis monitor blood pressures closely monitor renal function and electrolytes daily continue supportive care will continue to follow Discussed with Dr Marcano Time Spent With Patient Time: Total time managing care of this patient today ____ minutes. Progress Note: Quality Stroke Does the patient have a stroke diagnosis?: No
[2024-05-16 11:03] LABS: Glucose, Whole Blood 111 mg/dL (60-115)
[2024-05-16] MEDS: guaiFENesin 200 MG/10 ML 10 ML LIQUID PO ×3 (11:37→22:07)
--- NOTE | 2024-05-16 12:43 | P.PNCA_ITS ---
Subjective Subjective Date of Service: 05/16/24 Principal diagnosis: Atrial fibrillation, cardiomyopathy. Interval history: Seen examined at bedside. Overall feeling better. Physical Exam Vital Signs: Last Vital Signs Temp 97.3 F 05/16/24 11:24 Pulse 67 05/16/24 11:24 Resp 16 05/16/24 11:24 BP 132/55 L 05/16/24 11:24 Pulse Ox 100 05/16/24 11:24 O2 Del Method Nasal Cannula 05/16/24 11:24 O2 Flow Rate 2 05/16/24 11:24 Oxygen Flow Rate 2 05/10/24 10:50 BMI result Body Mass Index 21.9 GENERAL APPEARANCE: in no acute distress, pleasant. NECK: no carotid bruit, no jugular venous distention. SKIN: no suspicious lesions, warm and dry. Skin bruising. HEART: no murmurs, regular rate and rhythm. LUNGS: Few crackles at left base. ABDOMEN: soft, nontender. EXTREMITIES: no edema. PERIPHERAL PULSES: equal. NEUROLOGIC: No gross deficits, AAO X 3 Objective Labs and Meds 05/13/24 06:53 05/16/24 06:36 Lab results: Laboratory Results - last 24 hr 05/15/24 05/15/24 05/16/24 16:22 21:03 06:36 Hold Purple Top SEE NOTE Sodium 135 Potassium 3.9 Chloride 105 Carbon Dioxide 20 L Anion Gap 14 BUN 26 H Creatinine 1.78 H Estim Creat Clear Calc 20.2 Estimated GFR 28 POC Glucose 94 234 H Random Glucose 164 H Calcium 8.8 05/16/24 05/16/24 07:40 10:59 Hold Purple Top Sodium Potassium Chloride Carbon Dioxide Anion Gap BUN Creatinine Estim Creat Clear Calc Estimated GFR POC Glucose 154 H 111 Random Glucose Calcium Progress Note: A&P Assessment and plan (1) PAF (paroxysmal atrial fibrillation): Status: Acute (2) Acute exacerbation of CHF (congestive heart failure): Status: Acute Plan [age] female with congestive heart failure. She has left bundle- branch block and also had AFib with RVR but now in sinus rhythm. She is on amiodarone load with 400 mg twice a day. She is on Eliquis 2.5 mg twice a day. Also on baby aspirin currently. She is on 200 mg twice a day of metoprolol tartrate. Changed to Toprol-XL 200 mg daily. Continue amiodarone and after 10 days of loading she can be changed to 200 mg daily. On hydralazine and nitrate combination due to CKD. Lasix 20 mg p.o. daily. Continue dapagliflozin. We will medically manage and will have repeat assessment of EF in few months. She will follow up with Dr. Sy. Thank you for allowing me to participate in the care of your patient. Please feel free to contact me if you have any questions. Time Spent With Patient Time: Total time managing care of this patient today ____ minutes. Progress Note: Quality Stroke Does the patient have a stroke diagnosis?: No Procedures Date of Service Date of Service: 05/16/24
--- NOTE | 2024-05-16 12:49 | MHC.CM.PN ---
PER MD ROUNDS, PT IS NOT READY TO DC PT DECLINING STR, DCP HOME WITH KERRIE BOND
[2024-05-16] MEDS: Albuterol/Iprat 2.5/0.5MG 3 ML AMPUL.NEB INHALE ×2 (13:06→20:39)
--- NOTE | 2024-05-16 14:08 | P.PNIM_ITS ---
Subjective Subjective Date of Service: 05/16/24 Interval History: Complaining of cough unable to bring up phlegm, denies shortness of breath, no acute events overnight. Review of Systems All other system reviewed and are negative Physical Exam 2 Vital Signs: Vital Signs: Last Vital Signs Temp 97.3 F 05/16/24 11:24 Pulse 67 05/16/24 13:06 Resp 16 05/16/24 13:06 BP 132/55 L 05/16/24 11:24 Pulse Ox 100 05/16/24 11:24 O2 Del Method Nasal Cannula 05/16/24 11:24 O2 Flow Rate 2 05/16/24 11:24 Oxygen Flow Rate 2 05/10/24 10:50 BMI result Body Mass Index 21.9 Const: Other: Gen: Awake alert x3, in no acute distress HEENT: sclera anicteric, moist mucus membranes Neck: supple, no JVD Lungs: diminished, no crackles Heart: Regular Abd: soft, non-tender, non-distended, bowel sounds audible Ext: no edema Skin: warm/well-perfused Neuro: alert and oriented x3, no focal findings Psych: Appropriate affect Objective Data Active Medications Acetaminophen (Acetaminophen 325 Mg Tablet) 650 mg PO Q6H PRN PRN Reason: Pain, Mild (Pain Scale 1-3), fever or headache Last Admin: 05/10/24 20:56 Dose: 650 mg Documented By: GINA Albuterol/Ipratropium (Albuterol/Iprat 2.5/0.5mg 3 Ml Ampul.Neb) 3 ml INHALE RQ6H WHILE AWAKE [facility] Last Admin: 05/16/24 13:06 Dose: 3 ml Documented By: AMANDA Amiodarone HCl (Amiodarone Hcl 200 Mg Tablet) 400 mg PO BID [facility] Last Admin: 05/16/24 08:11 Dose: 400 mg Documented By: IJEOMA Apixaban (Apixaban 2.5 Mg Tablet) 2.5 mg PO BID [facility] Last Admin: 05/16/24 08:10 Dose: 2.5 mg Documented By: IJEOMA Aspirin (Aspirin Enteric Coated 81 Mg Tablet.) 81 mg PO DAILY [facility] Last Admin: 05/16/24 08:10 Dose: 81 mg Documented By: IJEOMA Atorvastatin Calcium (Atorvastatin Calcium 40 Mg Tablet) 40 mg PO BEDTIME [facility] Last Admin: 05/15/24 21:22 Dose: 40 mg Documented By: ROHIT Benzonatate (Benzonatate 100 Mg Capsule) 100 mg PO TID PRN PRN Reason: Cough Last Admin: 05/11/24 23:56 Dose: 100 mg Documented By: ROHIT Calcium Carbonate (Calcium Carbonate 750 Mg Tab.Chew) 750 mg PO Q4H PRN PRN Reason: Heartburn Donepezil HCl (Donepezil Hcl 5 Mg Tablet) 5 mg PO BEDTIME [facility] Last Admin: 05/15/24 21:23 Dose: 5 mg Documented By: ROHIT Fluticasone/Vilanterol (Fluticasone/Vilanterol 100/25 Blst.W.Dev) 1 puff INHALE RDAILY [facility] Last Admin: 05/16/24 07:41 Dose: Not Given Documented By: AMANDA Non-Admin Reason: Patient Refused Glucose (Glucose Gel 15 Gm Gel..Gram.) 15 gm PO Q15M PRN; Protocol PRN Reason: per Hypoglycemia Standing Ord. Last Admin: 05/15/24 08:20 Dose: 15 gm Documented By: CODY Guaifenesin (Guaifenesin 200 Mg/10 Ml 10 Ml Liquid) 10 ml PO TID [facility] Last Admin: 05/16/24 11:37 Dose: 10 ml Documented By: IJEOMA Hydralazine HCl (Hydralazine Hcl 25 Mg Tablet) 25 mg PO BID [facility]; Protocol Last Admin: 05/16/24 08:11 Dose: 25 mg Documented By: IJEOMA Dextrose (D10) 250 mls @ 750 mls/hr IV Q15M PRN; Protocol PRN Reason: per Hypoglycemia Standing Ord. Insulin Glargine (Insulin Glargine,Hum.Rec.Anlog 100 Unit/Ml 10 Ml Vial) 12 unit SUBCUT BEDTIME [facility] Last Admin: 05/15/24 21:41 Dose: 12 unit Documented By: ROHIT Insulin Human Lispro (Insulin Lispro 100 Unit/Ml 3 Ml Vial) 0 unit SUBCUT QIDACHS [facility]; Protocol Last Admin: 05/16/24 11:04 Dose: Not Given Documented By: IJEOMA Non-Admin Reason: No Insulin Coverage Isosorbide Dinitrate (Isosorbide Dinitrate 10 Mg Tablet) 10 mg PO BID [facility]; Protocol Last Admin: 05/16/24 08:10 Dose: 10 mg Documented By: IJEOMA Levalbuterol HCl (Levalbuterol Hcl 1.25 Mg/3 Ml Vial.Neb) 1.25 mg INHALE Q4H PRN PRN Reason: wheezing\Dyspnea Last Admin: 05/16/24 09:30 Dose: 1.25 mg Documented By: AMANDA Magnesium Hydroxide (Milk Of Magnesia 30 Ml Oral.Susp) 30 ml PO DAILY PRN PRN Reason: Constipation Magnesium Oxide (Magnesium Oxide 400 Mg Tablet) 400 mg PO DAILY [facility] Last Admin: 05/16/24 08:11 Dose: 400 mg Documented By: IJEOMA Melatonin (Melatonin 3 Mg Tablet) 6 mg PO BEDTIME PRN PRN Reason: Insomnia Last Admin: 05/12/24 20:19 Dose: 6 mg Documented By: GABRIEL Metoprolol Tartrate (Metoprolol Tartrate 100 Mg Tablet) 200 mg PO BID [facility]; Protocol Last Admin: 05/16/24 08:11 Dose: 200 mg Documented By: IJEOMA Omeprazole (Omeprazole 40 Mg Capsule.Dr) 40 mg PO DAILY@0630 [facility] Last Admin: 05/16/24 06:34 Dose: 40 mg Documented By: ROHIT Ondansetron HCl (Ondansetron Hcl 4 Mg/2 Ml Vial) 4 mg IVPUSH Q8H PRN PRN Reason: Nausea and Vomiting Last Admin: 05/14/24 00:18 Dose: 4 mg Documented By: TIFFANY Risperidone (Risperidone 0.5 Mg Tablet) 0.5 mg PO BID [facility] Last Admin: 05/16/24 08:11 Dose: 0.5 mg Documented By: IJEOMA Sodium Chloride (0.9 % Sodium Chloride Flush 3 Ml Syringe) [facility] Last Admin: 05/16/24 08:12 Dose: 3 ml Documented By: IJEOMA Trazodone HCl (Trazodone Hcl 50 Mg Tablet) 50 mg PO BEDTIME PRN PRN Reason: Insomnia Last Admin: 05/15/24 21:27 Dose: 50 mg Documented By: ROHIT Labs 05/13/24 06:53 05/16/24 06:36 Labs: Laboratory Results - last 24 hr 05/15/24 05/15/24 05/16/24 16:22 21:03 06:36 Hold Purple Top SEE NOTE Anion Gap 14 Estim Creat Clear Calc 20.2 Estimated GFR 28 POC Glucose 94 234 H Random Glucose 164 H Calcium 8.8 05/16/24 05/16/24 07:40 10:59 Hold Purple Top Anion Gap Estim Creat Clear Calc Estimated GFR POC Glucose 154 H 111 Random Glucose Calcium Assessment and Plan (1) Atrial fibrillation with rapid ventricular response: Status: Acute (2) Acute exacerbation of CHF (congestive heart failure): Status: Acute (3) Acute hypoxic respiratory failure: Status: Acute Plan 78yo F with CAD, PAD, carotid occlusive disease, HTN, COPD, CKD3, DM2, GERD, hiatal hernia, MDD, recent admission to [facility] for hallucinations, presented with 2d of dyspnea, found to be hypoxic to 88% by EMS admitted for AHRF due to CHF exacerbation, went into rapid AF 05/12, converted to NSR on amiodarone drip and went back to AFib with RVR this morning. Acute hypoxic respiratory failure due to acute/chronic HFrEF ischemic cardiomyopathy - TTE 05/11/24: Severely reduced LV ejection fraction of 25-30% with underlying regional wall motion abnormalities suggestive of ischemic cardiomyopathy 2. [id number] mitral regurgitation 3. Normal RV systolic pressure 4. No gross pericardial effusion - diuretics discontinue since patient appears euvolemic , continue isosorbide 10 mg b.i.d. and hydralazine 25 mg b.i.d. - valsartan discontinued due to LAURO -wean oxygen as tolerated, home O2 eval prior to discharge -hold diuretics and resume Lasix 20 mg daily once renal function stabilizes AF/RVR, new-onset - converted to normal sinus rhythm after treatment with amiodarone drip and placed on amiodarone loading dose however converted back to atrial fibrillation with RVR on 05/14 Therefore placed back on amiodarone drip, and converted back to normal sinus rhythm continue metoprolol and Eliquis 2.5 b.i.d. low-dose due to LAURO and weight < 60 kilos ,if SCr improves to 1.5 or less, increase back to 5 mg bid - continue amiodarone loading dose 400 b.i.d. times 10 days followed by 200 mg daily -cardiology recommend to change metoprolol to 100 mg b.i.d. to Toprol-XL 200 mg daily. LAURO/CKD3 -noted to have worsening creatinine, valsartan and Lasix discontinued , seen by nephrology they agreed to hold diuretics for now COPD not in acute exacerbation - continue nebs + home inhalers, add cough medication DM2 - noted to have elevated blood sugars on Lantus 8 units at bedtime, home dose Lantus 12 units. hold Tradjent, Farxiga, netglinide, and MTF, will place back on Lantus 12 units HTN - continue metoprolol tartrate; hydralazine 25 mg b.i.d. and isosorbide 10 mg b.i.d. stable BP PAD /CAD - continue ASA, atorvastatin GERD - PPI tobacco abuse - declines NRT mood disorder/dementia - continue donepezil, trazodone, risperidone and DC nortriptyline, since not on it at home VTE ppx - apixaban dispo - PT recommend short-term rehab and if patient refuse then home with services In my clinical judgment, the patient requires continued inpatient hospitalization for the following reasons: LAURO, recurrent AFib. Quality Stroke Does the patient have a stroke diagnosis?: No VTE Prior VTE?: No VTE Risk Level:: Medical - moderate - high VTE Device Contraindication: Treatment Not Indicated VTE Drug Contraindication: N/A - Med Ordered
[2024-05-16 16:06] LABS: Glucose, Whole Blood 187 mg/dL (60-115)
[2024-05-16 20:23] LABS: Glucose, Whole Blood 180 mg/dL (60-115)
[2024-05-16] MEDS: Atorvastatin Calcium 40 MG TABLET PO (21:55)
[2024-05-16] MEDS: Donepezil HCl 5 MG TABLET PO (21:55)
[2024-05-16] MEDS: Insulin Glargine,Hum.rec.anlog 100 UNIT/ML 10 ML VIAL 12 UNIT SUBCUT (21:56)
[2024-05-16] MEDS: traZODone HCL 50 MG TABLET PO (22:07)
[2024-05-16] MEDS: Benzonatate 100 MG CAPSULE PO (22:08)
[2024-05-17] VITALS (7 sets, daily range): BP systolic 120–150; BP diastolic 51–82; PULSE 70–133; RESP 15–20; TEMP 36.4–36.6; O2SAT 93–100; BMI 22.6
[2024-05-17] MEDS: Albuterol/Iprat 2.5/0.5MG 3 ML AMPUL.NEB INHALE ×2 (03:09→09:00)
[2024-05-17 07:18] LABS: Glucose, Whole Blood 167 mg/dL (60-115)
[2024-05-17 07:19] LABS: Anion Gap 14 (12-20); Blood Urea Nitrogen 23 mg/dL (9-16); Calcium 8.6 mg/dL (8.4-10.2); Carbon Dioxide 22 mmol/L (22-29); Chloride 103 mmol/L (96-108); Creatinine Clr Calc Pharmacy 25.1; Estimated Glomerular Filt Rate 35; Glucose Random 163 mg/dL (60-115); Potassium 4.1 mmol/L (3.3-5.1); Sodium 135 mmol/L (135-145)
[2024-05-17 08:58] LABS: Complement C3 134 mg/dL (83-193)
[2024-05-17] MEDS: Fluticasone/Vilanterol 100/25 BLST.W.DEV 1 PUFF INHALE (09:00)
[2024-05-17] MEDS: Metoprolol Succinate ER 100 MG TAB.ER.24H 200 MG PO (09:01)
[2024-05-17] MEDS: Isosorbide Dinitrate 10 MG TABLET PO (09:01)
[2024-05-17] MEDS: Amiodarone HCL 200 MG TABLET 400 MG PO (09:01)
[2024-05-17] MEDS: Omeprazole 40 MG CAPSULE.DR PO (09:01)
[2024-05-17] MEDS: Insulin Lispro 100 UNIT/ML 3 ML VIAL SUBCUT ×2 (09:02→12:52)
[2024-05-17] MEDS: Aspirin Enteric Coated 81 MG TABLET.DR PO (09:02)
[2024-05-17] MEDS: Apixaban 2.5 MG TABLET PO (09:02)
[2024-05-17] MEDS: hydrALAZINE HCl 25 MG TABLET PO (09:02)
[2024-05-17] MEDS: Magnesium Oxide 400 MG TABLET PO (09:02)
[2024-05-17] MEDS: risperiDONE 0.5 MG TABLET PO (09:02)
[2024-05-17] MEDS: 0.9 % Sodium Chloride Flush 3 ML SYRINGE IVFLUSH (09:03)
--- NOTE | 2024-05-17 09:23 | P.PNNP_ITS ---
Subjective Subjective Date of Service: 05/17/24 Principal diagnosis: Atrial fibrillation, cardiomyopathy. Interval history: 78 y/o female with a medical history of CKD3, CAD, PAD, DMII, HTN, tobacco use, GERD. 05/10 admitted for shortness of breath x2 days, being treated for CHF exacerbation vs PNA She is seen by Dr Sam, nephrology, outpatient for management of CKD has right EFRAIN by doppler study, hx of proteinuria and osteomyelitis of great toe Her creatinine on 05/10 was 1.13, . was 1.37, 05/12 is 1.24- this is around her baseline; 05/13 creatinine increased to 1.6, 1.71, 2.03; diuretics held due to rising creatining and euvolemia; valsartan also held has been trending down, yesterday 1.78, 05/17 is 1.44 patient also has had episodes of afib with RVR on 05/12 and 05/15 Patient states her breathing is ok today (in recliner currently)- reports wants to go home and feels fine she denies abdominal pain, chest pain, dizziness she denies flank pain, dysuria, blood in urine denies chest pain states she continues to struggle with anxiety denies other new symptoms, concerns Physical Exam 2 Vital Signs: Vital Signs: Last Vital Signs Temp 97.5 F 05/17/24 07:26 Pulse 79 05/17/24 09:00 Resp 15 05/17/24 09:00 BP 150/65 H 05/17/24 07:26 Pulse Ox 96 05/17/24 07:26 O2 Del Method Nasal Cannula 05/17/24 07:26 O2 Flow Rate 2 05/17/24 07:26 Oxygen Flow Rate 2 05/10/24 10:50 BMI result Body Mass Index 22.6 Const: General: no acute distress, alert and awake Resp: Effort & Inspection: able to speak in complete sentences A uscultation: clear to auscultation bilaterally Cardio: Jugular venous distension: no JVD Rate: regular rate Rhythm: r egular rhythm Heart sounds: S1 normal heart sound present and S2 normal heart sound present GI: Palpation (GI): Soft to palpation and nontender : General: Yes no CVA tenderness Back/Spine/Pelvis: Back: no CVA tenderness Skin: Lesions: no lesions Rashes: no rashes Extrem: Right upper extremity: no edema Objective Data Labs 05/13/24 06:53 05/17/24 06:20 Labs: Laboratory Results - last 24 hr 05/16/24 05/16/24 05/16/24 06:36 10:59 16:01 Hold Purple Top Sodium Potassium Chloride Carbon Dioxide Anion Gap BUN Creatinine Estim Creat Clear Calc Estimated GFR POC Glucose 111 187 H Random Glucose Calcium Complement C3 134 Complement C4 36 05/16/24 05/17/24 05/17/24 20:15 06:20 07:06 Hold Purple Top SEE NOTE Sodium 135 Potassium 4.1 Chloride 103 Carbon Dioxide 22 Anion Gap 14 BUN 23 H Creatinine 1.44 H Estim Creat Clear Calc 25.1 Estimated GFR 35 POC Glucose 180 H 167 H Random Glucose 163 H Calcium 8.6 Complement C3 Complement C4 Procedures Date of Service Date of Service: 05/17/24 Assessment & Plan Assessment and plan (1) CKD (chronic kidney disease) stage 3, GFR 30-59 ml/min: Status: Chronic (2) Acute exacerbation of CHF (congestive heart failure): Status: Acute Plan Patient with baseline 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 on diuretic therapy for CHF exacerbation LAURO likely secondary to renal hypoperfusion from episode of afib with RVR; valsartan in setting of diuresis may have also contributed (agree to hold for now) creatinine continues to improve with diuretics held continue current plan; agree to continue to hold diuresis as creatinine is improving; if she becomes clinically fluid overloaded may resume diuresis monitor blood pressures closely monitor renal function and electrolytes daily continue supportive care will continue to follow Discussed with Dr Marcano Time Spent With Patient Time: Total time managing care of this patient today ____ minutes. Progress Note: Quality Stroke Does the patient have a stroke diagnosis?: No
--- NOTE | 2024-05-17 10:12 | PM.DS ---
DS: Providers Provider Date of Service: 05/17/24 Date of admission: 05/10/24 14:35 Date of discharge: 05/17/24 Primary care physician: Gene Sanchez MD Consults: 05/11/24 08:28 Consult to Cardiology Routine Consulting Provider: [facility] Reason for consultation: chf Has provider been notified: No DS: Diagnosis Discharge Diagnosis (1) CKD (chronic kidney disease) stage 3, GFR 30-59 ml/min: Status: Chronic (2) Acute exacerbation of CHF (congestive heart failure): Status: Acute DS: Summary Hospital Course Hospital Course: History of presenting illness: Date of Service: 05/10/24 Attending physician on admission: Simone Olivares Chief Complaint: SOB x2 days Patient is a 78-year-old female past medical history significant for COPD (smokes 1.5 ppd), IDDM CKD 3, PID, major depressive disorder CAD GERD hypertension hiatal hernia, carotid artery occlusion and recent admission to [facility] for hallucinations, who presented to the ED today with shortness of breath x2 days. She called EMS and her oxygen saturation was 88% when they arrived. They gave her a DuoNeb and started her on 2 L of oxygen, with some improvement of O2 sat however she reports that she is not feeling any better. She denies any chest pain, headache, vomiting, sick contacts, lower extremity edema, fever or chills. She smokes 1.5 packs of cigarettes a day but reports over the last 2 days she has cut back significantly and wants to quit ?cold turkey ?. Hospital course: 78yo F with CAD, PAD, carotid occlusive disease, HTN, COPD, CKD3, DM2, GERD, hiatal hernia, MDD, recent admission to [facility] for hallucinations, presented with 2d of dyspnea, found to be hypoxic to 88% by EMS admitted for AHRF due to CHF exacerbation, went into rapid AF 05/12, converted to NSR on amiodarone drip and went back to AFib with RVR this morning. Acute hypoxic respiratory failure due to acute/chronic HFrEF, ischemic cardiomyopathy patient treated with IV diuretics with good response was followed closely by Cardiology placed on isosorbide 10 mg b.i.d. and hydralazine 25 mg b.i.d. and valsartan with above treatment patient noted to have LAURO therefore valsartan and diuretics were held, echocardiogram showed Severely reduced LV ejection fraction of 25-30% with underlying regional wall motion abnormalities suggestive of ischemic cardiomyopathy , [id number] mitral regurg, patient was seen by strategic debriefing officer they recommended ischemic workup however patient declined, since patient renal function has improved and clinically she is stable she is being discharged home on low-dose diuretics, isosorbide and hydralazine and has been strongly recommended outpatient follow-up with cardiology patient did not qualify for home oxygen. During course of hospitalization patient noted to be in new onset atrial fibrillation with rapid ventricular response treated with amiodarone drip subsequently converted to normal sinus rhythm and place on amiodarone loading dose 400 mg b.i.d. followed by 200 mg daily, also placed on Eliquis 2.5 mg b.i.d. renally dosed, she is recommend to continue Toprol-XL 200 mg daily and have close outpatient follow-up with Cardiology, dose of Eliquis can be adjusted depending on patient's renal function. LAURO/CKD3 likely due to over-diuresis renal function improved and close to baseline. COPD noted to have no acute exacerbation recommend to continue home inhalers. DM2 recommend to continue Lantus and Farxiga, and hold Tradjent, and netglinide. HTN continue metoprolol xl, hydralazine 25 mg b.i.d. and isosorbide 10 mg b.i.d. . PAD /CAD - continue ASA, atorvastatin GERD continue PPI tobacco abuse declined NRT, counseling done. mood disorder/dementia - continue donepezil, trazodone, risperidone and DC nortriptyline, since not on it at home Time Attestation Discharge Coordination Time (in mins): 40 Quality: Safe Use of Opioids Does Pt have an Active Cancer Diagnosis on the Problem List?: No Quality: Stroke Does the patient have a stroke diagnosis?: No Physical Exam Vital Signs: Vital Signs: Last Vital Signs Temp 97.5 F 05/17/24 07:26 Pulse 79 05/17/24 09:00 Resp 15 05/17/24 09:00 BP 150/65 H 05/17/24 07:26 Pulse Ox 96 05/17/24 07:26 O2 Del Method Nasal Cannula 05/17/24 07:26 O2 Flow Rate 2 05/17/24 07:26 Oxygen Flow Rate 2 05/10/24 10:50 BMI result Body Mass Index 22.6 Const: Other: Gen: Awake alert x3, in no acute distress HEENT: sclera anicteric, moist mucus membranes Neck: supple, no JVD Lungs: diminished, no crackles Heart: Regular Abd: soft, non-tender, non-distended, bowel sounds audible Ext: no edema Skin: warm/well-perfused Neuro: alert and oriented x3, no focal findings Psych: Appropriate affect DS: Data Data Completed and Pending Completed studies during hospitalization [Text1]: Procedures Dilation of Left External Iliac Artery with Intraluminal Device, using Drug-Coated Balloon, Percutaneous Approach (01/13/23) Insertion of Infusion Device into Superior Vena Cava, Percutaneous Approach (01/13/23) Ultrasonography of Superior Vena Cava, Guidance (01/13/23) Labs on day of discharge: Laboratory Results - last 24 hr 05/16/24 05/16/24 05/16/24 06:36 10:59 16:01 Hold Purple Top Sodium Potassium Chloride Carbon Dioxide Anion Gap BUN Creatinine Estim Creat Clear Calc Estimated GFR POC Glucose 111 187 H Random Glucose Calcium Complement C3 134 Complement C4 36 05/16/24 05/17/24 05/17/24 20:15 06:20 07:06 Hold Purple Top SEE NOTE Sodium 135 Potassium 4.1 Chloride 103 Carbon Dioxide 22 Anion Gap 14 BUN 23 H Creatinine 1.44 H Estim Creat Clear Calc 25.1 Estimated GFR 35 POC Glucose 180 H 167 H Random Glucose 163 H Calcium 8.6 Complement C3 Complement C4 Discharge Plan Discharge Anticipated Discharge Date/Time: 05/17/24 10:11 Patient Disposition: Home Health Service Discharge Diagnosis: Atrial fibrillation with rapid ventricular response Acute congestive heart failure Diabetes mellitus Referrals: [facility] [Outside] - 1 Week Gene Sanchez MD [Primary Care Provider] - 1 Week Discharge Medications: New amiodarone 200 mg Tablet 400 mg PO BID Qty: 90 0RF Rx Instructions: Take amiodarone 400 mg (2 tabs 200mg tablet)twice daily for 6 more days end date 05/22 then Amiodarone 1 tablet 200 mg daily Eliquis 2.5 mg Tablet 2.5 mg PO BID Qty: 60 0RF isosorbide dinitrate 10 mg Tablet 10 mg PO BID Qty: 60 0RF Protocol: Hold for SBP< HOLD for SBP < : 90 hydralazine 25 mg Tablet 25 mg PO BID Qty: 60 0RF Protocol: Hold for SBP< HOLD for SBP < : 90 metoprolol succinate 100 mg Tablet Extended Release 24 Hr 200 mg PO DAILY Qty: 30 0RF Protocol: Hold for SBP/HR < HOLD for SBP < : 90 HOLD for HR < : 60 guaifenesin 100 mg/5 mL Liquid 100 mg PO TID Qty: 473 0RF furosemide [Lasix] 20 mg tablet 20 mg PO DAILY Qty: 30 0RF Continued insulin glargine [Lantus U-100 Insulin] 100 unit/mL solution 12 unit subcut BEDTIME fluticasone furoate-vilanterol [Breo Ellipta] 100-25 mcg/dose blister with device 1 ea INHALATION DAILY atorvastatin 40 mg Tablet 40 mg PO BEDTIME Qty: 30 0RF donepezil 5 mg Tablet 5 mg PO BEDTIME Qty: 30 0RF aspirin 81 mg Tablet,Delayed Release (Dr/Ec) 81 mg PO DAILY Qty: 30 0RF albuterol sulfate [Ventolin HFA] 90 mcg/actuation Hfa Aerosol Inhaler 2 puff inhalation QID PRN (Reason: Wheezing) Qty: 6.7 0RF trazodone 50 mg Tablet 50 mg PO BEDTIME PRN (Reason: Insomnia) Qty: 30 0RF omeprazole 40 mg Capsule,Delayed Release(Dr/Ec) 40 mg PO DAILY@0630 Qty: 30 0RF risperidone 0.5 mg Tablet 0.5 mg PO BID Qty: 60 0RF cholecalciferol (vitamin D3) 25 mcg (1,000 unit) capsule 25 mcg PO DAILY Qty: 30 0RF Farxiga 5 mg tablet 5 mg PO DAILY Discontinued Tradjenta 5 mg tablet 5 mg PO DAILY metoprolol tartrate 100 mg Tablet 200 mg PO BID Qty: 120 0RF Protocol: Hold for SBP/HR < HOLD for SBP < : 90 HOLD for HR < : 60 amlodipine 10 mg Tablet 10 mg PO DAILY Qty: 30 0RF Protocol: Hold for SBP< HOLD for SBP < : 90 lisinopril 40 mg Tablet 40 mg PO DAILY Qty: 30 0RF Protocol: Hold for SBP< HOLD for SBP < : 90 nortriptyline 25 mg capsule 25 - 50 mg PO BEDTIME nateglinide 60 mg tablet 60 mg PO TID Discharge Orders: Discharge Order (Routine); Ordered 05/17/24 Ordered By: Maurice Bradley Diet: Diabetic diet Activity on Discharge: As tolerated Stand Alone Forms: Patient Portal Discharge page Print Language: Greek Care Plan Goals: Atrial fibrillation with rapid ventricular response resolved take amiodarone 400 mg 2 tablets of 200 mg twice daily for 6 more days ending 05/22 Take Eliquis 2.5 mg twice daily Take hydralazine 25 mg twice daily Take Isordil 10 mg twice daily Discontinue all medications as ordered Health Concerns: Diabetes mellitus follow diabetic diet Plan of Treatment: Outpatient follow-up with Cardiology Dr. Headley call for appointment 2 weeks Outpatient follow-up with primary care physician call for appointment Assessment: As above Discharge Date/Time: 05/17/24 13:45
[2024-05-17 11:05] LABS: Glucose, Whole Blood 230 mg/dL (60-115)
--- NOTE | 2024-05-17 12:20 | P.F2F_ITS ---
Service Date Service Date: 05/17/24 Encounter Date of encounter: 05/17/24 Reasons for Services Signs and symptoms assessed: Shortness of breath/irregular heartbeat/blood sugar monitoring Reason for nursing home: CV/CP assess and/or care, diabetic teaching and medication management Reason for physical therapy: home safety and mobility and energy conservation Homebound: Leaving the home is medically contraindicated at this time without the asist of a device and/or another person due th the listed conditions above and below. Reason homebound: shortness of breath with minimal effort and weakness related to hospital stay Certification: Based on the above findings, I certify that this patient is confined to the home and needs intermittent nursing home care, physical therapy and/or speech therapy, or continues to need occupational therapy. The patient is under my care, and I have initiated the establishment of the plan of care. The patient will be followed by a physician who will periodically review the plan of care. Time Spent With Patient Time: Total time managing care of this patient today ____ minutes.
--- NOTE | 2024-05-17 13:11 | MHC.CM.PN ---
Second IMM 05/17/24, Pt has been medically cleared for DC, she will go home today via [facility] and resume her Home health services from [facility].
== END 2024-05-17 13:45 | disposition home health service (06) | DRG 291 ==
LOC: HO.ED 13:26 → HO.EDOVER 14:56 → HO.IMC 05-11 07:50
PROVIDERS: Family Medicine; Internal Medicine Nephrology; Student in an Organized Health Care Education/Training Program; Admitting Provider Physician Assistant; Emergency Provider Emergency Medicine; PCP Internal Medicine; Visit Provider Hospitalist
DX: I13.0 Hypertensive heart and chronic kidney disease with heart failure and stage 1 through stage 4 chronic kidney disease, or unspecified chronic kidney disease (principal); I50.23 Acute on chronic systolic (congestive) heart failure; J18.9 Pneumonia, unspecified organism; J96.01 Acute respiratory failure with hypoxia; J44.0 Chronic obstructive pulmonary disease with (acute) lower respiratory infection; I47.20 Ventricular tachycardia, unspecified; E11.22 Type 2 diabetes mellitus with diabetic chronic kidney disease; I25.10 Atherosclerotic heart disease of native coronary artery without angina pectoris; I70.1 Atherosclerosis of renal artery; I34.0 Nonrheumatic mitral (valve) insufficiency; F03.90 Unspecified dementia, unspecified severity, without behavioral disturbance, psychotic disturbance, mood disturbance, and anxiety; I48.0 Paroxysmal atrial fibrillation; F39 Unspecified mood [affective] disorder; K21.9 Gastro-esophageal reflux disease without esophagitis; E11.51 Type 2 diabetes mellitus with diabetic peripheral angiopathy without gangrene; I25.5 Ischemic cardiomyopathy; N18.30 Chronic kidney disease, stage 3 unspecified; Z20.822 Contact with and (suspected) exposure to COVID-19; Z87.891 Personal history of nicotine dependence; Z79.4 Long term (current) use of insulin; Z79.01 Long term (current) use of anticoagulants; Z79.51 Long term (current) use of inhaled steroids; Z79.82 Long term (current) use of aspirin; Z79.899 Other long term (current) drug therapy
CPT/HCPCS: 0241U; 36415; 36600; 71045; 80048; 80053; 80307; 81001; 82040; 82803; 82947; 83605; 83690; 83735; 83880; 84100; 84484; 85025; 85027; 85610; 86160; 87040; 87633; 87635; 93005; 93306; 93975; 94640; 97161; 97162; 97530; 99285; C1758; J0282; J0283; J0360; J0696; J1160; J1205; J1650; J1940; J2270; J2404; J2405; J2919; J3010; J3475; P9047; Q9957

== ENCOUNTER → 2024-05-10 10:55 | Outpatient (BNV) | payer MEDICARE, MEDICAID, SELFPAY | PROVIDERS: Admitting Provider Physician Assistant; Emergency Provider Emergency Medicine; PCP Internal Medicine; Visit Provider Internal Medicine Cardiovascular Disease | DX: R94.31 Abnormal electrocardiogram [ECG] [EKG] (principal) | CPT/HCPCS: 93010 ==

== ENCOUNTER 2024-05-10 14:35 | Outpatient (BNV) | payer MEDICARE, MEDICAID, SELFPAY | END 2024-05-11 07:00 | PROVIDERS: Admitting Provider Physician Assistant; Emergency Provider Emergency Medicine; PCP Internal Medicine; Visit Provider Internal Medicine Cardiovascular Disease | DX: I34.0 Nonrheumatic mitral (valve) insufficiency (principal); I36.1 Nonrheumatic tricuspid (valve) insufficiency; I25.5 Ischemic cardiomyopathy | CPT/HCPCS: 93306 ==

== ENCOUNTER 2024-05-10 14:35 | Outpatient (BNV) | payer MEDICARE, MEDICAID, SELFPAY | END 2024-05-12 04:26 | PROVIDERS: Admitting Provider Physician Assistant; Emergency Provider Emergency Medicine; PCP Internal Medicine; Visit Provider Internal Medicine Cardiovascular Disease | DX: R94.31 Abnormal electrocardiogram [ECG] [EKG] (principal) | CPT/HCPCS: 93010 ==

== ENCOUNTER → 2024-05-10 14:35 | Outpatient (BNV) | payer MEDICARE, MEDICAID, SELFPAY | PROVIDERS: Admitting Provider Physician Assistant; Emergency Provider Emergency Medicine; PCP Internal Medicine; Visit Provider Nurse Practitioner Family | DX: N18.31 Chronic kidney disease, stage 3a (principal); I50.9 Heart failure, unspecified | CPT/HCPCS: 99221; 99231; 99232 ==

== ENCOUNTER → 2024-05-10 14:35 | Outpatient (BNV) | payer MEDICARE, MEDICAID, SELFPAY | PROVIDERS: Admitting Provider Physician Assistant; Emergency Provider Emergency Medicine; PCP Internal Medicine; Visit Provider Internal Medicine Cardiovascular Disease | DX: I48.0 Paroxysmal atrial fibrillation (principal); I50.9 Heart failure, unspecified | CPT/HCPCS: 99222; 99233 ==

== ENCOUNTER → 2024-05-10 14:35 | Outpatient (BNV) | payer MEDICARE, MEDICAID, SELFPAY | PROVIDERS: Admitting Provider Physician Assistant; Emergency Provider Emergency Medicine; PCP Internal Medicine; Visit Provider Physician Assistant | DX: N18.31 Chronic kidney disease, stage 3a (principal); I50.9 Heart failure, unspecified | CPT/HCPCS: 99223; 99232; 99233; 99239; 99499; G0180 ==

== ENCOUNTER 2024-05-18 23:29 | Inpatient (IN) | payer MEDICARE, MEDICAID, SELFPAY ==
--- NOTE | ~2024-05-18 | XR_ITS ---
EXAMINATION: XR CHEST CLINICAL INFORMATION: Shortness of breath with dyspnea and cough COMPARISON: Chest radiograph 05/10/2024 TECHNIQUE: Frontal view of the chest was obtained. FINDINGS: The heart remains enlarged. There is upper zone redistribution. There are bilateral pleural effusions that have increased in size when compared to 05/10/2024 study. The left side is small, the right is small to moderate. No focal consolidations or lung masses. XR/XR chest 1V IMPRESSION: Cardiomegaly with pulmonary vascular congestion and increasing size of bilateral pleural effusions. Electronically signed by: Guillermo Blanc MD 05/19/2024 01:22 AM [facility]
--- NOTE | ~2024-05-18 | US_ITS ---
EXAMINATION: RENAL ARTERY DOPPLER ULTRASOUND CLINICAL INFORMATION: Renal artery stenosis COMPARISON: Doppler from 08/28/2023 TECHNIQUE: Renal ultrasound. Doppler ultrasound (spectral analysis and color Doppler) of the renal arteries and aorta were performed. Evaluation was incomplete as the left renal arteries were not imaged due to poor visualization with rib shadowing and difficult patient positioning FINDINGS: The right kidney measures 10.1 x 4.0 x 3.5 cm in sagittal, AP and transverse dimensions. The left kidney measures 9.2 x 3.0 x 3.8 cm in sagittal, AP and transverse dimensions. The kidneys show no masses, calculi or hydronephrosis. The corticomedullary differentiation is normal. There is an exophytic cyst in the midpole the left kidney measuring 1.3 x 1.1 x 1.4 cm. RENAL ARTERY VELOCITIES: Right: Proximally: 163 cm/s. Mid: 121 cm/s. Distal: 111 cm/s. Left: Proximally: Not imaged . Mid: Not imaged Distally: Not imaged . INTERLOBAR RESISTIVE INDICES: Right: Upper: 0.6 Mid: 0.8 Lower: 0.8 Left: Upper: 0.7 Mid: Not imaged Lower: Not imaged Mid aortic velocity: 95.5 cm/s. Renal Aortic Ratio: Right: 1.7 Left: Not calculated US/US renal doppler IMPRESSION: 1. Right kidney is normal in appearance. Left kidney is small in size. 2. Right renal artery is patent with no evidence of renal artery stenosis. 3. Left renal artery was not imaged due to poor visualization. Criteria: NORMAL: Renal artery peak systolic velocities < 180 cm/s. Renal aortic ratio < 3.5 Normal renal size. < 60% STENOSIS: Renal artery peak systolic velocities > 180 cm/s. Renal aortic ratio < 3.5 Renal size <2 cm difference between sides. > 60% STENOSIS Renal artery peak systolic velocities > 180 cm/s. Renal aortic ratio > 3.5 Renal size >2 cm difference between sides. Aortic PSV > 140 cm/s with normal renal artery PSV made over estimate severity. Aortic PSV > 100 cm/s with normal renal artery PSV may underestimate severity. Electronically signed by: Td Campbell MD 05/23/2024 09:02 PM EST
--- NOTE | ~2024-05-18 | XR_ITS ---
EXAMINATION: XR CHEST CLINICAL INFORMATION: Evaluate for pulmonary edema. COMPARISON: Chest x-ray dated 05/18/2024 and older exams. TECHNIQUE: AP portable upright view of the chest was obtained. FINDINGS: EKG leads overlie the chest. The cardiomediastinal silhouette is enlarged. Lungs bilaterally are symmetrically mildly hyperinflated. Small bilateral pleural effusions are seen with associated bibasilar linear atelectasis. Mild central peribronchial cuffing minimal increased reticular opacities are seen when compared to 04/16/2024, suggesting mild interstitial edema. No focal consolidation or pneumothorax is seen. Mild convex left thoracolumbar scoliosis. Osteopenia. XR/XR chest 1V IMPRESSION: * Findings are suggestive of mild interstitial pulmonary edema with small bilateral pleural effusions and associated bibasilar atelectasis. * No focal pneumonia. Electronically signed by: Sophia Lazo MD 05/21/2024 07:49 AM EST
[2024-05-18 23:50] VITALS: BP 127/97; PULSE 89; RESP 24; TEMP 36.4; O2SAT 89; BMI 22.6
[2024-05-18 23:51] VITALS: O2SAT 95
[2024-05-18 23:54] VITALS: PULSE 90; RESP 24; O2SAT 93
[2024-05-18] MEDS: Albuterol Sulfate 2.5 MG, Albuterol Sulfate (0.083%) 2.5 MG 5 MG INHALE (23:54)
[2024-05-19] VITALS (24 sets, daily range): BP systolic 117–191; BP diastolic 50–91; PULSE 69–114; RESP 12–28; TEMP 36.2–36.8; O2SAT 90–100
--- NOTE | 2024-05-19 | ECG_ITS ---
Test Reason : dyspnea Blood Pressure : / mmHG Vent. Rate : 084 BPM Atrial Rate : 084 BPM P-R Int : 196 ms QRS Dur : 160 ms QT Int : 444 ms P-R-T Axes : 065 -28 077 degrees QTc Int : 524 ms Normal sinus rhythm Left bundle branch block Abnormal ECG When compared with ECG of 12-MAY-2024 08:09, Sinus rhythm has replaced Atrial fibrillation Vent. rate has decreased BY 51 BPM Referred By: Flaco Samuel Electronically Signed By:Jose Bauman
--- NOTE | 2024-05-19 | ECG_ITS ---
Test Reason : SOB Blood Pressure : / mmHG Vent. Rate : 092 BPM Atrial Rate : 092 BPM P-R Int : 186 ms QRS Dur : 164 ms QT Int : 430 ms P-R-T Axes : 049 -11 081 degrees QTc Int : 531 ms Normal sinus rhythm Left bundle branch block Abnormal ECG When compared with ECG of 19-MAY-2024 00:37, No significant change was found Referred By: Joshua Castillo Electronically Signed By:Jose Bauman
[2024-05-19 00:32] LABS: Basophils Percent Auto 0.4 % (0-2); Eosinophils Percent Auto 0.5 % (0-4); Hematocrit 32.1 % (37.0-47.0); Hemoglobin 10.7 g/dl (12.0-16.0); Imm Gran Abs Auto 0.04 X10*3/uL (0.00-0.03); Imm Gran Pct Auto 0.5 % (0.0-0.4); Lymphocytes Absolute Auto 0.7 X10*3/uL (1.2-4.9); Lymphocytes Percent Auto 8.2 % (20-40); Mean Corpuscular HGB Conc 33.3 g/dl (31.0-35.0); Mean Corpuscular Hemoglobin 29.5 pg (27.0-33.0); Mean Corpuscular Volume 88.4 fL (80.0-98.0); Monocytes Absolute Auto 0.7 X10*3/uL (0.1-1.2); Monocytes Percent Auto 8.5 % (2-11); Neutrophils Absolute Auto 6.5 x10*3/uL (2.0-8.3); Neutrophils Percent Auto 81.9 % (45-73); Platelet Count 391 X10*3/uL (160-400); Red Blood Count 3.63 X10*6/uL (4.20-5.50); Red Cell Distribution Width 15.8 % (11.0-16.0)
[2024-05-19 00:36] LABS: MANUAL DIFF FLAG NO
[2024-05-19 00:38] LABS: Prothrombin Time 11.5 SEC (10.9-12.4)
--- NOTE | 2024-05-19 00:43 | ED.GENADULT ---
HPI - General Adult General Chief complaint: Dyspnea Stated complaint: Respritory distress, SOB A&O3, 1-2 word sentences Time Seen by Provider: 05/18/24 23:42 Source: patient, RN notes reviewed and old records reviewed Mode of arrival: EMS Limitations: no limitations History of Present Illness ED Provider: Jimmie HPI narrative: 78-year-old female with past medical history significant for atrial fibrillation on Eliquis, COPD, CHF, chronic kidney disease, hypertension, diabetes, coronary artery disease, GERD presents for evaluation of shortness of breath Patient was discharged from this facility yesterday She reports worsening shortness of breath She reports being compliant with her home medications EMS found the patient with an oxygen saturation of 84% on room air She was given DuoNeb with minimal improvement She denies any fevers, chills For concerns at this time Related Data Home Medications ?Medication ?Instructions ?Recorded ?Confirmed dapagliflozin propanediol 5 mg 5 mg PO DAILY 07/31/23 05/10/24 tablet (Farxiga) fluticasone furoate 100 1 ea inhalation DAILY 04/16/24 05/10/24 mcg-vilanterol 25 mcg/dose inhalation powder (Breo Ellipta) insulin glargine 100 unit/mL 12 unit subcut BEDTIME 04/16/24 05/10/24 subcutaneous solution (Lantus U-100 Insulin) Previous Rx's ?Medication ?Instructions ?Recorded albuterol sulfate 90 mcg/actuation 2 puff inhalation QID PRN Wheezing 04/22/24 aerosol inhaler (Ventolin HFA) #6.7 grams aspirin 81 mg tablet,delayed 81 mg PO DAILY #30 tabs 04/22/24 release atorvastatin 40 mg tablet 40 mg PO BEDTIME #30 tabs 04/22/24 cholecalciferol (vitamin D3) 25 25 mcg PO DAILY #30 caps 04/22/24 mcg (1,000 unit) capsule donepezil 5 mg tablet 5 mg PO BEDTIME #30 tabs 04/22/24 omeprazole 40 mg capsule,delayed 40 mg PO DAILY@0630 #30 caps 04/22/24 release risperidone 0.5 mg tablet 0.5 mg PO BID #60 tabs 04/22/24 trazodone 50 mg tablet 50 mg PO BEDTIME PRN Insomnia #30 04/22/24 tabs amiodarone 200 mg tablet 400 mg (2 x 200 mg) PO BID #90 tabs 05/17/24 apixaban 2.5 mg tablet (Eliquis) 2.5 mg PO BID #60 tabs 05/17/24 furosemide 20 mg tablet (Lasix) 20 mg PO DAILY #30 tabs 05/17/24 guaifenesin 100 mg/5 mL oral liquid 100 mg (5 mL) PO TID #473 mL 05/17/24 hydralazine 25 mg tablet 25 mg PO BID #60 tabs 05/17/24 isosorbide dinitrate 10 mg tablet 10 mg PO BID #60 tabs 05/17/24 metoprolol succinate 100 mg 200 mg PO DAILY #30 tabs 05/17/24 tablet,extended release 24 hr Allergies Allergy/AdvReac Type Severity Reaction Status Date / Time silver Allergy Unknown SKIN TEARS Verified 05/18/24 23:52 [From [employer] MESH] TAPE,PAPER Allergy Mild Itching Uncoded 05/18/24 23:52 Review of Systems Constitutional: Constitutional: Denies body ache(s), Denies chills, Denies fever(s) and Denies headache(s) Eyes: Eyes: Denies blurry vision ENT: Denies vertigo, Denies dizziness and Denies headache(s) Cardiovascular: Cardiovascular: Denies chest pain and Reports dyspnea Respiratory: Respiratory: Reports cough, Reports dyspnea and Reports wheezing Gastrointestinal: Gastrointestinal: Denies abdominal pain, Denies nausea and Denies vomiting Musculoskeletal: Musculoskeletal: Denies back pain Integumentary/Breasts: Skin/Breast: Denies rash Neurologic: Denies vertigo, Denies dizziness and Denies headache(s) Allergic/Immunologic: Allergic/Immunologic: Reports wheezing [facility] Past Medical History Medical History CKD (chronic kidney disease) stage 3, GFR 30-59 ml/min PAD (peripheral artery disease) Diabetic ketoacidosis Major depressive disorder, recurrent, moderate Adjustment disorder CAD (coronary artery disease) GERD (gastroesophageal reflux disease) HTN (hypertension) Carotid artery occlusion Diabetes Hiatal hernia GERD (gastroesophageal reflux disease) Surgical History History of esophagogastroduodenoscopy (EGD) Family History Family History Father No problems noted. Mother No problems noted. Social History Social History Household Members: None Housing: Apartment Do you presently have visiting nurse or other home services: Yes Alcohol intake: never Comment: patient refuses to have person standby when using bathroom Patient Tobacco Use Status: Former Tobacco user Tobacco use type: Cigarette Cigarette Packs Per Day: 1.5 Cigarettes Per Day: 30.0 Years Smoked: 40 Substance Use Type: Marijuana Advance Directives: Yes Advance Directives on File: Yes Advance Directives Date on File: 01/14/23 Do you have a plan to hurt others: No Plan service: No Current occupational status: retired Sexual orientation: Straight/Heterosexual Physical Exam ED Vital Signs: Vital Signs - 24 hr 05/18/24 23:50 05/18/24 23:51 05/18/24 23:54 Temperature 97.5 F Pulse Rate 89 90 Respiratory Rate 24 H 24 H Blood Pressure 127/97 H Pulse Oximetry 89 L 95 Oxygen Delivery Method Room Air Oxymask Oxygen Flow Rate 3 05/19/24 00:27 05/19/24 00:30 Temperature Pulse Rate 98 Respiratory Rate 18 Blood Pressure Pulse Oximetry 98 96 Oxygen Delivery Method Nasal Cannula Nasal Cannula Oxygen Flow Rate 3 2 BMI result Body Mass Index 22.6 Const General: alert and awake Nutritional Appearance: well nourished Orientation/consciousness: patient oriented x3 HENMT Head: Yes normocephalic and Yes atraumatic Eyes Eyelids: Yes eyelids normal Conjunctivae: conjunctivae normal Sclerae: sclerae normal Corneas: corneas normal Pupils: Equal, round and reactive pupils present EOM: EOMs intact bilaterally Neck Neck: Yes full ROM Resp Other: Diminished throughout Effort & Inspection: not able to speak in complete sentences, grunting, labored and nasal flaring Auscultation: crackles (Bibasilar) Cardio Rate: regular rate Rhythm: regular rhythm GI Inspection: No distended Palpation (GI): Soft to palpation, not firm, nontender, no guarding and not rigid Skin General skin exam: elasticity normal Neuro General: patient oriented x3 Cranial nerves: Yes Equal, round and reactive pupils present and Yes Bilaterally intact EOM present Cognition (Neuro): normal cognition Extrem Other: Moving all extremities well without any obvious deformities Medications Administered Discontinued Medications Generic Name Dose Route Start Last Admin Trade Name Kar PRN Reason Stop Dose Admin Albuterol Sulfate 2.5 mg/ 5 mg 05/18/24 23:46 05/18/24 23:54 Albuterol Sulfate 2.5 mg INHALE 05/18/24 23:47 5 mg ONCE ONE Administration Medical Decision Making Medical Decision Making [facility] Narrative: 78-year-old female with past medical history as documented above presents for evaluation of shortness of breath. I reviewed her recent admission. She is hypoxic to 89% when taking her off supplemental O2. She has no white count, no fever, chest x-ray shows worsening pleural effusions, her BNP is more elevated today than her recent admission last week. Given that she is not wheezing, it appears that again her most likely acute problem is congestive heart failure rather than COPD. We will treat with Lasix 40 mg IV. We will hold steroids as I do not feel COPD is an acute problem and steroids will likely exacerbate her CHF Differential Diagnosis Differential Diagnoses: The differential diagnosis associated with the presentation includes Congestive heart failure COPD AFib Pneumonia Admission/Observation Consideration of admission/observation: Escalation of care including admission/observation considered Patient will require readmission for worsening CHF Consult Healthcare Provider Management of the patient was discussed with: Hospitalist Lab Data [facility] Lab Attestation statement: I reviewed the patient's lab results. No leukocytosis. The patient has a chronic anemia consistent with a baseline. Normal platelet count. No electrolyte abnormalities. Her glucose is elevated to 263, no evidence of DKA 05/19/24 00:23 05/19/24 00:23 Labs: Lab Results 05/19/24 05/19/24 Range/Units 00:23 00:30 WBC 8.0 (4.8-10.8) X10*3/uL RBC 3.63 L (4.20-5.50) X10*6/uL Hgb 10.7 L (12.0-16.0) g/dl Hct 32.1 L (37.0-47.0) % MCV 88.4 (80.0-98.0) fL MCH 29.5 (27.0-33.0) pg MCHC 33.3 (31.0-35.0) g/dl RDW 15.8 (11.0-16.0) % Plt Count 391 D (160-400) X10*3/uL MPV 10.0 (9.4-12.3) fL Immature Gran % (Auto) 0.5 H (0.0-0.4) % Neut % (Auto) 81.9 H (45-73) % Lymph % (Auto) 8.2 L (20-40) % [place] % (Auto) 8.5 (2-11) % Eos % (Auto) 0.5 (0-4) % Baso % (Auto) 0.4 (0-2) % Lymph # (Auto) 0.7 L (1.2-4.9) X10*3/uL [place] # (Auto) 0.7 (0.1-1.2) X10*3/uL Eos # (Auto) 0.0 (0.0-0.4) X10*3/uL Baso # (Auto) 0.0 (0.0-0.2) X10*3/uL Abs Immat Gran (auto) 0.04 H (0.00-0.03) X10*3/uL Absolute Neuts (auto) 6.5 (2.0-8.3) x10*3/uL Absolute Nucleated RBC 0.000 (0.0-0.012) X10*3/uL Nucleated RBC % (auto) 0.0 (0.0-0.2) /100WBC PT 11.5 (10.9-12.4) SEC INR 1.0 (0.9-1.1) Sodium 136 (135-145) mmol/L Potassium 4.3 (3.3-5.1) mmol/L Chloride 101 (96-108) mmol/L Carbon Dioxide 23 (22-29) mmol/L Anion Gap 16 (12-20) BUN 15 (9-16) mg/dL Creatinine 1.40 (0.5-1.4) mg/dL Estim Creat Clear Calc 25.8 Estimated GFR 37 Random Glucose 263 H (60-115) mg/dL Lactic Acid 1.1 (0.5-2.0) mmol/L Calcium 8.9 (8.4-10.2) mg/dL Magnesium 1.8 (1.6-2.6) mg/dL Total Bilirubin 0.4 (0.0-1.0) mg/dL AST 33 H (5-31) U/L ALT 58 H (0-31) U/L Alkaline Phosphatase 96 (39-117) U/L Troponin I High Sens 38.2 H D (<3.5-17.0) ng/L B-Natriuretic Peptide 2344 H (<100) pg/mL Total Protein 7.2 (6.5-8.0) g/dL Albumin 3.6 (3.5-5.0) g/dL Lipase 16 (8-78) U/L Independent Interpretation I performed an independent interpretation of an: EKG (Sinus rhythm with a rate of 84 beats minute. Left bundle branch block which was previously documented) and Plain X-Ray (Worsening pleural effusion) Radiology Impression Discussion of test interpretation with radiology: I have reviewed the radiologist's reading. Radiologist Impression: FINDINGS: The heart remains enlarged. There is upper zone redistribution. There are bilateral pleural effusions that have increased in size when compared to 05/10/2024 study. The left side is small, the right is small to moderate. No focal consolidations or lung masses. XR/XR chest 1V IMPRESSION: Cardiomegaly with pulmonary vascular congestion and increasing size of bilateral pleural effusions. Electronically signed by: Guillermo Blanc MD 05/19/2024 01:22 AM [facility] Discharge Plan Discharge Clinical Impression: Congestive heart failure Patient Disposition: Admitted As Inpatient Prescriptions: No Action insulin glargine [Lantus U-100 Insulin] 100 unit/mL solution 12 unit subcut BEDTIME fluticasone furoate-vilanterol [Breo Ellipta] 100-25 mcg/dose blister with device 1 ea INHALATION DAILY atorvastatin 40 mg Tablet 40 mg PO BEDTIME Qty: 30 0RF donepezil 5 mg Tablet 5 mg PO BEDTIME Qty: 30 0RF aspirin 81 mg Tablet,Delayed Release (Dr/Ec) 81 mg PO DAILY Qty: 30 0RF albuterol sulfate [Ventolin HFA] 90 mcg/actuation Hfa Aerosol Inhaler 2 puff inhalation QID PRN (Reason: Wheezing) Qty: 6.7 0RF trazodone 50 mg Tablet 50 mg PO BEDTIME PRN (Reason: Insomnia) Qty: 30 0RF omeprazole 40 mg Capsule,Delayed Release(Dr/Ec) 40 mg PO DAILY@0630 Qty: 30 0RF risperidone 0.5 mg Tablet 0.5 mg PO BID Qty: 60 0RF cholecalciferol (vitamin D3) 25 mcg (1,000 unit) capsule 25 mcg PO DAILY Qty: 30 0RF amiodarone 200 mg Tablet 400 mg PO BID Qty: 90 0RF Rx Instructions: Take amiodarone 400 mg (2 tabs 200mg tablet)twice daily for 6 more days end date 05/22 then Amiodarone 1 tablet 200 mg daily Eliquis 2.5 mg Tablet 2.5 mg PO BID Qty: 60 0RF isosorbide dinitrate 10 mg Tablet 10 mg PO BID Qty: 60 0RF Protocol: Hold for SBP< HOLD for SBP < : 90 hydralazine 25 mg Tablet 25 mg PO BID Qty: 60 0RF Protocol: Hold for SBP< HOLD for SBP < : 90 metoprolol succinate 100 mg Tablet Extended Release 24 Hr 200 mg PO DAILY Qty: 30 0RF Protocol: Hold for SBP/HR < HOLD for SBP < : 90 HOLD for HR < : 60 guaifenesin 100 mg/5 mL Liquid 100 mg PO TID Qty: 473 0RF furosemide [Lasix] 20 mg tablet 20 mg PO DAILY Qty: 30 0RF Farxiga 5 mg tablet 5 mg PO DAILY Print Language: Tanzanian
[2024-05-19 00:45] LABS: Alanine Aminotransferase 58 U/L (0-31); Albumin Level 3.6 g/dL (3.5-5.0); Alkaline Phosphatase 96 U/L (39-117); Anion Gap 16 (12-20); Aspartate Amino Transferase 33 U/L (5-31); Bilirubin Total 0.4 mg/dL (0.0-1.0); Blood Urea Nitrogen 15 mg/dL (9-16); Calcium 8.9 mg/dL (8.4-10.2); Carbon Dioxide 23 mmol/L (22-29); Chloride 101 mmol/L (96-108); Creatinine Clr Calc Pharmacy 25.8; Estimated Glomerular Filt Rate 37; Glucose Random 263 mg/dL (60-115); Lipase 16 U/L (8-78); Magnesium 1.8 mg/dL (1.6-2.6); Potassium 4.3 mmol/L (3.3-5.1); Sodium 136 mmol/L (135-145); Total Protein 7.2 g/dL (6.5-8.0)
[2024-05-19 00:51] LABS: B Type Natriuretic Peptide 2344 pg/mL (<100)
[2024-05-19 00:53] LABS: Troponin-I High Sensitivity 38.2 ng/L (<3.5-17.0)
[2024-05-19 00:54] LABS: Lactic Acid 1.1 mmol/L (0.5-2.0)
--- NOTE | 2024-05-19 00:58 | PC.NURSE ---
0027 pt reports feeling better, resp even and unlabored, trial for RA and sats 89% on RA, placed back on NC. Chandler PIERCE aware
--- NOTE | 2024-05-19 02:10 | PM.IMHP ---
History of Present Illness Date of Service: 05/19/24 Chief Complaint: Dyspnea This is a 78-year-old female with pertinent history of COPD not on home oxygen, insulin-dependent diabetes mellitus, CKD stage 3, PAD, mood disorder, gastroesophageal reflux disease, coronary artery disease, hypertension, paroxysmal atrial fibrillation on anticoagulation who presents to the emergency department for evaluation of dyspnea. Of note, patient was recently admitted for acute hypoxia due to CHF exacerbation and AFib with RVR and discharged on 05/17. Patient states she has been compliant with her medications since hospital discharge. Patient reports worsening dyspnea on the day of presentation. Also admits orthopnea. No fever, chills, chest pain, palpitations, abdominal pain, changes in urinary or bowel habits. In the emergency department, BNP found to be elevated and imaging with pulmonary vascular congestion, pulmonary edema and worsening bilateral pleural effusions. Patient was given IV Lasix in the ER Review of Systems Constitutional: Constitutional: Reports fatigue, Reports malaise and Reports weakness Cardiovascular: Cardiovascular: Reports dyspnea on exertion and Reports orthopnea Respiratory: Respiratory: Reports dyspnea on exertion Gastrointestinal: Gastrointestinal: Reports no additional gastrointestinal complaints Genitourinary: Genitourinary: Reports no additional female genitourinary complaints Neurologic: Reports weakness Endocrine: Endocrine: Reports fatigue [facility] Medical History CKD (chronic kidney disease) stage 3, GFR 30-59 ml/min PAD (peripheral artery disease) Diabetic ketoacidosis Major depressive disorder, recurrent, moderate Adjustment disorder CAD (coronary artery disease) GERD (gastroesophageal reflux disease) HTN (hypertension) Carotid artery occlusion Diabetes Hiatal hernia GERD (gastroesophageal reflux disease) Family History Father No problems noted. Mother No problems noted. Surgical History History of esophagogastroduodenoscopy (EGD) Social History Household Members: None Housing: Apartment Do you presently have visiting nurse or other home services: Yes Alcohol intake: never Comment: patient refuses to have person standby when using bathroom Patient Tobacco Use Status: Former Tobacco user Tobacco use type: Cigarette Cigarette Packs Per Day: 1.5 Cigarettes Per Day: 30.0 Years Smoked: 40 Substance Use Type: Marijuana Advance Directives: Yes Advance Directives on File: Yes Advance Directives Date on File: 01/14/23 Do you have a plan to hurt others: No Plan service: No Current occupational status: retired Sexual orientation: Straight/Heterosexual Meds Allergies Allergy/AdvReac Type Severity Reaction Status Date / Time silver Allergy Unknown SKIN TEARS Verified 05/18/24 23:52 [From [employer] MESH] TAPE,PAPER Allergy Mild Itching Uncoded 05/18/24 23:52 Home Medications ?Medication ?Instructions ?Recorded ?Confirmed ?Last Taken ?Type dapagliflozin propanediol 5 mg 5 mg PO DAILY 07/31/23 05/10/24 05/10/24 History tablet (Farxiga) fluticasone furoate 100 1 ea inhalation DAILY 04/16/24 05/10/24 05/10/24 History mcg-vilanterol 25 mcg/dose inhalation powder (Breo Ellipta) insulin glargine 100 unit/mL 12 unit subcut BEDTIME 04/16/24 05/10/24 05/09/24 History subcutaneous solution (Lantus U-100 Insulin) Physical Exam Vital Signs and Narrative: Vital Signs: Last Vital Signs Temp 97.5 F 05/18/24 23:50 Pulse 98 05/19/24 00:27 Resp 18 05/19/24 00:27 BP 127/97 H 05/18/24 23:50 Pulse Ox 96 05/19/24 00:30 O2 Del Method Nasal Cannula 05/19/24 00:30 O2 Flow Rate 2 05/19/24 00:30 BMI result Body Mass Index 22.6 Middle-aged female in mild distress on supplemental oxygen Neck supple Regular rate and rhythm, S1-S2 heard Bilateral crackles present Abdomen soft nontender, no guarding, no rigidity Patient is awake, alert and oriented to self, place, time and person ; no focal motor deficit Psych: Normal mood Results Labs 05/19/24 00:23 05/19/24 00:23 Labs: Laboratory Results - last 24 hr 05/19/24 05/19/24 00:23 00:30 MCV 88.4 MCH 29.5 MCHC 33.3 RDW 15.8 Plt Count 391 D MPV 10.0 Immature Gran % (Auto) 0.5 H Neut % (Auto) 81.9 H Lymph % (Auto) 8.2 L [place] % (Auto) 8.5 Eos % (Auto) 0.5 Baso % (Auto) 0.4 Lymph # (Auto) 0.7 L [place] # (Auto) 0.7 Eos # (Auto) 0.0 Baso # (Auto) 0.0 Abs Immat Gran (auto) 0.04 H Absolute Neuts (auto) 6.5 Absolute Nucleated RBC 0.000 Nucleated RBC % (auto) 0.0 PT 11.5 INR 1.0 Anion Gap 16 Estim Creat Clear Calc 25.8 Estimated GFR 37 Random Glucose 263 H Lactic Acid 1.1 Calcium 8.9 Magnesium 1.8 Total Bilirubin 0.4 AST 33 H ALT 58 H Alkaline Phosphatase 96 Troponin I High Sens 38.2 H D B-Natriuretic Peptide 2344 H Total Protein 7.2 Albumin 3.6 Lipase 16 Imaging Radiologist's Impressions: Impressions Chest X-Ray 05/18/24 23:55 IMPRESSION: Cardiomegaly with pulmonary vascular congestion and increasing size of bilateral pleural effusions. Electronically signed by: Guillermo Blanc MD 05/19/2024 01:22 AM [facility] Assessment and Plan (1) Hypoxia: Status: Acute (2) Congestive heart failure: Status: Acute Plan This is a 78-year-old female with pertinent history of COPD not on home oxygen, insulin-dependent diabetes mellitus, CKD stage 3, PAD, mood disorder, gastroesophageal reflux disease, coronary artery disease, hypertension, paroxysmal atrial fibrillation on anticoagulation who presents to the emergency department for evaluation of dyspnea. #. Acute hypoxic respiratory failure due to acute on chronic congestive heart failure with reduced ejection fraction: Will admit patient with IV diuresis and supplemental oxygen. Strict I's and O's. Low-salt diet. Recent echo: 05/11/2024 with ejection fraction 25-30% and [id number] MR. On isosorbide dinitrate, beta-hilda and hydralazine. JOSE inhibitor discontinued during previous admission #. Paroxysmal atrial fibrillation: On amiodarone, beta-hilda and Eliquis. Serum creatinine improved compared to previous admission, will increase Eliquis dosage to 5 mg b.i.d. #. Insulin-dependent diabetes mellitus with hyperglycemia: Initiating basal plus insulin regimen #. CKD stage 3: Monitor creatinine urine output with diuresis #. COPD: Continue home inhalers #. Hypertension: Continue metoprolol, hydralazine and isosorbide #. CAD/CAD: Continue aspirin and statin #. Gastroesophageal reflux disease: On PPI #. Tobacco use disorder: Declines NRT. Counseled regarding cessation #. Mood disorder: On risperidone, trazodone and donepezil Med rec pending DVT prophylaxis: Marthaleonandrei Full code Admit as inpatient and will require two night minimum hospital stay for supplemental oxygen, IV diuresis (as above), which is not possible in a lesser acute setting. Quality Stroke Does the patient have a stroke diagnosis?: No VTE Prior VTE?: No VTE Risk Level:: Medical - moderate - high VTE Device Contraindication: Treatment Not Indicated VTE Drug Contraindication: N/A - Med Ordered
[2024-05-19] MEDS: Insulin Glargine,Hum.rec.anlog 100 UNIT/ML 10 ML VIAL 10 UNIT SUBCUT (02:42)
[2024-05-19] MEDS: Furosemide 40 MG/4 ML VIAL IVPUSH ×3 (02:43→10:32)
[2024-05-19 03:18] LABS: Influenza A PCR NEGATIVE (Negative); Influenza B PCR NEGATIVE (Negative); Resp Syncy Virus RNA Qual PCR NEGATIVE (Negative); SARS COV2 PCR INHOUSE NEGATIVE (Negative)
[2024-05-19 04:42] LABS: MANUAL DIFF FLAG NO
[2024-05-19 04:43] LABS: Basophils Percent Auto 0.4 % (0-2); Eosinophils Percent Auto 0.3 % (0-4); Hemoglobin 9.5 g/dl (12.0-16.0); Imm Gran Abs Auto 0.04 X10*3/uL (0.00-0.03); Imm Gran Pct Auto 0.5 % (0.0-0.4); Lymphocytes Absolute Auto 0.8 X10*3/uL (1.2-4.9); Lymphocytes Percent Auto 11.1 % (20-40); Mean Corpuscular HGB Conc 32.8 g/dl (31.0-35.0); Mean Corpuscular Hemoglobin 29.2 pg (27.0-33.0); Mean Corpuscular Volume 89.2 fL (80.0-98.0); Mean Platelet Volume 10.1 fL (9.4-12.3); Monocytes Absolute Auto 0.7 X10*3/uL (0.1-1.2); Monocytes Percent Auto 9.2 % (2-11); Neutrophils Absolute Auto 5.7 x10*3/uL (2.0-8.3); Neutrophils Percent Auto 78.5 % (45-73); Platelet Count 336 X10*3/uL (160-400); Red Blood Count 3.25 X10*6/uL (4.20-5.50); Red Cell Distribution Width 15.5 % (11.0-16.0); White Blood Count 7.3 X10*3/uL (4.8-10.8)
[2024-05-19 04:58] LABS: Anion Gap 13 (12-20); Blood Urea Nitrogen 14 mg/dL (9-16); Carbon Dioxide 22 mmol/L (22-29); Chloride 102 mmol/L (96-108); Creatinine Clr Calc Pharmacy 28.6; Estimated Glomerular Filt Rate 41; Glucose Random 215 mg/dL (60-115); Potassium 4.3 mmol/L (3.3-5.1); Sodium 133 mmol/L (135-145)
--- NOTE | 2024-05-19 07:15 | PHA.MEDREC ---
Addendum entered by Cornell Miller RPh 05/19/24 07:28: Med rec checked by [facility] Original Note: Pharmacy Consult ? Medication Reconciliation Pharmacy has completed the medication reconciliation. Patient was just discharged from [facility] yesterday 05/17/24. Utilized discharge packet and claims to confirm med list. medications discontinued per discharge packet Amlodipine 10 mg, Lisinopril 40 mg, Neteglinide 60 mg, Nortriptyline 25 mg, and Tradjenta 5 mg.
[2024-05-19 08:25] LABS: Glucose, Whole Blood 162 mg/dL (60-115)
[2024-05-19] MEDS: Insulin Lispro 100 UNIT/ML 3 ML VIAL SUBCUT (08:50)
[2024-05-19] MEDS: Furosemide 40 MG/4 ML VIAL 20 MG IVPUSH (08:50)
[2024-05-19] MEDS: Albuterol/Iprat 2.5/0.5MG 3 ML AMPUL.NEB INHALE ×2 (09:15→15:20)
[2024-05-19] MEDS: 0.9 % Sodium Chloride Flush 3 ML SYRINGE IVFLUSH (09:28)
[2024-05-19 09:32] LABS: B Type Natriuretic Peptide 2635 pg/mL (<100)
[2024-05-19] MEDS: Fluticasone/Vilanterol 100/25 BLST.W.DEV 1 PUFF INHALE (09:32)
--- NOTE | 2024-05-19 09:58 | PC.NURSE ---
Pt arrived at change of shift 0645 as this signwriter was arriving. Stand pivot into bed with x1 assist. Pt able to rest for a bit then at ~0830 pt with increased WOB after getting up to use to commode, sat reading 91% on 2L but difficult to get accurate reading r/t pts perfusion. Scheduled 20mg Lasix IVP given, pt unable to take PO meds at this time. Respiratory called for prn updraft. Cardiology at bedside. Ordered additional 40mg lasix IVP and pt placed on NRB. Transferred back over to main ED report given to Lizz WHEAT.
--- NOTE | 2024-05-19 10:09 | PC.NURSE ---
Pt brought to main ED from overflow, per overflow RN, pt having increased dyspnea and unable to get O2 sat. Pt noted to have increased WOB, SPO2 100% on NRB 15L. Pt lethargic. IV noted to be blown, new IV access placed in left forearm 22G. RT at bedside placed pt on bipap
--- NOTE | 2024-05-19 10:17 | PC.NURSE ---
Unable to give morning meds from overflow, pt lethargic with increased WOB, unable to tolerate
--- NOTE | 2024-05-19 10:22 | PM.CNCAR ---
History of Present Illness History of Present Illness Date of Service: 05/19/24 Requesting physician: Joshua Castillo Chief complaint: Dyspnea Narrative: [age] year female who recently left the hospital after being diagnosed with Cardiomyopathy and congestive heart failure. She also had paroxysmal atrial fibrillation and was started on amiodarone. She is returning after 1 day with shortness of breath and elevated blood pressures. Clinically noticed to be in heart failure. We have been asked to help with management. She was seen in the overflow ER area and was significantly short of breath and wheezing. She was using accessory muscles. Non-rebreather was placed on her and she was given 40 mg of Lasix. She was transferred to the main ER to be assessed for BiPAP. She said she has been short of breath. Denying chest discomfort. Imaging and labs reviewed. [facility], LATER [facility] Past Medical History Medical History CKD (chronic kidney disease) stage 3, GFR 30-59 ml/min PAD (peripheral artery disease) Diabetic ketoacidosis Major depressive disorder, recurrent, moderate Adjustment disorder CAD (coronary artery disease) GERD (gastroesophageal reflux disease) HTN (hypertension) Carotid artery occlusion Diabetes Hiatal hernia GERD (gastroesophageal reflux disease) Family History Family History Father No problems noted. Mother No problems noted. Surgical History Surgical History History of esophagogastroduodenoscopy (EGD) Social History Social History Household Members: None Housing: Apartment Do you presently have visiting nurse or other home services: Yes Alcohol intake: never Comment: patient refuses to have person standby when using bathroom Patient Tobacco Use Status: Former Tobacco user Tobacco use type: Cigarette Cigarette Packs Per Day: 1.5 Cigarettes Per Day: 30.0 Years Smoked: 40 Smoked in Last 30 Days: No Use of substances other than those prescribed or required for medical reasons: No Substance Use Type: Marijuana Advance Directives: Yes Advance Directives on File: Yes Advance Directives Date on File: 01/14/23 Do you have a plan to hurt others: No Plan service: No Current occupational status: retired Sexual orientation: Straight/Heterosexual Meds Allergies Allergy/AdvReac Type Severity Reaction Status Date / Time silver Allergy Unknown SKIN TEARS Verified 05/18/24 23:52 [From TEGADERM AG MESH] TAPE,PAPER Allergy Mild Itching Uncoded 05/18/24 23:52 Active Medications: Current Medications Acetaminophen (Acetaminophen 325 Mg Tablet) 650 mg PO Q6H PRN PRN Reason: Pain, Mild (Pain Scale 1-3), fever or headache Albuterol Sulfate (Albuterol Sulfate 90 Mcg 8 Gm Inhaler) 2 puff INHALE QID PRN PRN Reason: Wheezing Albuterol/Ipratropium (Albuterol/Iprat 2.5/0.5mg 3 Ml Ampul.Neb) 3 ml INHALE Q4H PRN PRN Reason: Wheezing Last Admin: 05/19/24 09:15 Dose: 3 ml Amiodarone HCl (Amiodarone Hcl 200 Mg Tablet) 400 mg PO BID [facility] Last Admin: 05/19/24 10:16 Dose: Not Given Apixaban (Apixaban 5 Mg Tablet) 5 mg PO BID [facility] Last Admin: 05/19/24 10:16 Dose: Not Given Aspirin (Aspirin Enteric Coated 81 Mg Tablet.Dr) 81 mg PO DAILY [facility] Last Admin: 05/19/24 10:16 Dose: Not Given Atorvastatin Calcium (Atorvastatin Calcium 40 Mg Tablet) 40 mg PO BEDTIME [facility] Calcium Carbonate (Calcium Carbonate 750 Mg Tab.Chew) 750 mg PO Q4H PRN PRN Reason: Heartburn Donepezil HCl (Donepezil Hcl 5 Mg Tablet) 5 mg PO BEDTIME [facility] Empagliflozin (Empagliflozin 10 Mg Tablet) 10 mg PO DAILY [facility] Last Admin: 05/19/24 10:16 Dose: Not Given Fluticasone/Vilanterol (Fluticasone/Vilanterol 100/25 Blst.W.Dev) 1 puff INHALE RDAILY [facility] Last Admin: 05/19/24 09:32 Dose: 1 puff Furosemide (Furosemide 40 Mg/4 Ml Vial) 40 mg IVPUSH ONCE ONE; Protocol Stop: 05/19/24 10:19 Glucose (Glucose Gel 15 Gm Gel..Gram.) 15 gm PO Q15M PRN; Protocol PRN Reason: per Hypoglycemia Standing Ord. Guaifenesin (Guaifenesin 200 Mg/10 Ml 10 Ml Liquid) 5 ml PO TID [facility] Last Admin: 05/19/24 10:16 Dose: Not Given Hydralazine HCl (Hydralazine Hcl 25 Mg Tablet) 25 mg PO BID [facility]; Protocol Last Admin: 05/19/24 10:17 Dose: Not Given Dextrose (D10) 250 mls @ 750 mls/hr IV Q15M PRN; Protocol PRN Reason: per Hypoglycemia Standing Ord. Furosemide 200 mg/ Sodium (Chloride) 100 mls @ 5 mls/hr IVCONT .Q20H [facility] Insulin Glargine (Insulin Glargine,Hum.Rec.Anlog 100 Unit/Ml 10 Ml Vial) 10 unit SUBCUT BEDTIME [facility] Last Admin: 05/19/24 02:42 Dose: 10 unit Insulin Human Lispro (Insulin Lispro 100 Unit/Ml 3 Ml Vial) 0.1 - 10 unit SUBCUT QIDACHS [facility]; Protocol Last Admin: 05/19/24 08:50 Dose: 2 unit Magnesium Hydroxide (Milk Of Magnesia 30 Ml Oral.Susp) 30 ml PO DAILY PRN PRN Reason: Constipation Melatonin (Melatonin 3 Mg Tablet) 6 mg PO BEDTIME PRN PRN Reason: Insomnia Metoprolol Succinate (Metoprolol Succinate Er 100 Mg Tab.Er.24h) 200 mg PO DAILY [facility]; Protocol Last Admin: 05/19/24 10:17 Dose: Not Given Omeprazole (Omeprazole 40 Mg Capsule.Dr) 40 mg PO DAILY@0630 [facility] Last Admin: 05/19/24 10:16 Dose: Not Given Ondansetron HCl (Ondansetron Hcl 4 Mg/2 Ml Vial) 4 mg IVPUSH Q8H PRN PRN Reason: Nausea and Vomiting Risperidone (Risperidone 0.5 Mg Tablet) 0.5 mg PO BID [facility] Last Admin: 05/19/24 10:17 Dose: Not Given Sodium Chloride (0.9 % Sodium Chloride Flush 3 Ml Syringe) 3 ml IVFLUSH QSHIFT [facility] Last Admin: 05/19/24 09:28 Dose: 3 ml Trazodone HCl (Trazodone Hcl 50 Mg Tablet) 50 mg PO BEDTIME PRN PRN Reason: Insomnia Vitamin D (Cholecalciferol (Vitamin D3) 25 Mcg Tablet) 25 mcg PO DAILY [facility] Last Admin: 05/19/24 10:16 Dose: Not Given Home Medications ?Medication ?Instructions ?Recorded ?Confirmed ?Last Taken ?Type dapagliflozin propanediol 5 mg 5 mg PO DAILY 07/31/23 05/19/24 05/18/24 History tablet (Farxiga) fluticasone furoate 100 1 ea inhalation DAILY 04/16/24 05/19/24 05/18/24 History mcg-vilanterol 25 mcg/dose inhalation powder (Breo Ellipta) insulin glargine 100 unit/mL 12 unit subcut BEDTIME 04/16/24 05/19/24 05/09/24 History subcutaneous solution (Lantus U-100 Insulin) Physical Exam Vital Signs: Vital Signs: Last Vital Signs Temp 97.6 F 05/19/24 08:02 Pulse 97 05/19/24 10:09 Resp 28 H 05/19/24 10:09 BP 146/57 H 05/19/24 10:09 Pulse Ox 100 05/19/24 10:09 O2 Del Method Non-Rebreather Ma sk 05/19/24 10:09 O2 Flow Rate 15 05/19/24 10:09 BMI result Body Mass Index 22.6 GENERAL APPEARANCE: Short of breath, using accessory muscles. NECK: no carotid bruit, + jugular venous distention. SKIN: no suspicious lesions, warm and dry. Skin bruising. HEART: no murmurs, regular rate and rhythm. LUNGS: Bilateral expiratory wheezes. Crackles at bases. ABDOMEN: soft, nontender. EXTREMITIES: no edema. PERIPHERAL PULSES: equal. NEUROLOGIC: No gross deficits, AAO X 3 Objective Labs and Meds 05/19/24 04:31 05/19/24 04:31 Lab results: Laboratory Results - last 24 hr 05/19/24 05/19/24 05/19/24 00:23 00:30 02:34 WBC 8.0 RBC 3.63 L Hgb 10.7 L Hct 32.1 L MCV 88.4 MCH 29.5 MCHC 33.3 RDW 15.8 Plt Count 391 D MPV 10.0 Immature Gran % (Auto) 0.5 H Neut % (Auto) 81.9 H Lymph % (Auto) 8.2 L [place] % (Auto) 8.5 Eos % (Auto) 0.5 Baso % (Auto) 0.4 Lymph # (Auto) 0.7 L [place] # (Auto) 0.7 Eos # (Auto) 0.0 Baso # (Auto) 0.0 Abs Immat Gran (auto) 0.04 H Absolute Neuts (auto) 6.5 Absolute Nucleated RBC 0.000 Nucleated RBC % (auto) 0.0 PT 11.5 INR 1.0 Sodium 136 Potassium 4.3 Chloride 101 Carbon Dioxide 23 Anion Gap 16 BUN 15 Creatinine 1.40 Estim Creat Clear Calc 25.8 Estimated GFR 37 POC Glucose Random Glucose 263 H Lactic Acid 1.1 Calcium 8.9 Magnesium 1.8 Total Bilirubin 0.4 AST 33 H ALT 58 H Alkaline Phosphatase 96 Troponin I High Sens 38.2 H D B-Natriuretic Peptide 2344 H Total Protein 7.2 Albumin 3.6 Lipase 16 Influenza Type A (PCR) NEGATIVE Influenza Type B (PCR) NEGATIVE RSV RNA Qual (PCR) NEGATIVE SARS-CoV-2 RNA (RT-PCR) NEGATIVE 05/19/24 05/19/24 04:31 08:02 WBC 7.3 RBC 3.25 L Hgb 9.5 L Hct 29.0 L MCV 89.2 MCH 29.2 MCHC 32.8 RDW 15.5 Plt Count 336 MPV 10.1 Immature Gran % (Auto) 0.5 H Neut % (Auto) 78.5 H Lymph % (Auto) 11.1 L [place] % (Auto) 9.2 Eos % (Auto) 0.3 Baso % (Auto) 0.4 Lymph # (Auto) 0.8 L [place] # (Auto) 0.7 Eos # (Auto) 0.0 Baso # (Auto) 0.0 Abs Immat Gran (auto) 0.04 H Absolute Neuts (auto) 5.7 Absolute Nucleated RBC 0.000 Nucleated RBC % (auto) 0.0 PT INR Sodium 133 L Potassium 4.3 Chloride 102 Carbon Dioxide 22 Anion Gap 13 BUN 14 Creatinine 1.26 Estim Creat Clear Calc 28.6 Estimated GFR 41 POC Glucose 162 H Random Glucose 215 H Lactic Acid Calcium 9.0 Magnesium Total Bilirubin AST ALT Alkaline Phosphatase Troponin I High Sens B-Natriuretic Peptide 2635 H Total Protein Albumin Lipase Influenza Type A (PCR) Influenza Type B (PCR) RSV RNA Qual (PCR) SARS-CoV-2 RNA (RT-PCR) Imaging Radiologist's impression: Impressions Chest X-Ray 05/18/24 23:55 IMPRESSION: Cardiomegaly with pulmonary vascular congestion and increasing size of bilateral pleural effusions. Electronically signed by: Guillermo Blanc MD 05/19/2024 01:22 AM [facility] Assessment and Plan (1) PAF (paroxysmal atrial fibrillation): Status: Acute (2) Congestive heart failure: Status: Acute Plan Pleasant 78 year female with new diagnosis of cardiomyopathy with [id number] LV dysfunction. She had left bundle-branch block as well as paroxysmal atrial fibrillation. She was started on amiodarone and Eliquis and was discharged home and is back with shortness of breath. Clinically appears volume overloaded and quite distressed and tachypneic. 40 mg IV b.i.d. Lasix. Alternatively can consider 5 milligram/hour of Lasix drip 2. Monitor blood pressure closely. She may need rescue BiPAP currently and has been transferred to main ER for that purpose. We will follow along with you. Thank you for allowing me to participate in the care of your patient. Please feel free to contact me if you have any questions. Procedures Date of Service Date of Service: 05/19/24
[2024-05-19] MEDS: Amiodarone HCL 200 MG TABLET 400 MG PO (10:43)
[2024-05-19] MEDS: Apixaban 5 MG TABLET PO (10:43)
[2024-05-19] MEDS: Metoprolol Tartrate 100 MG TABLET PO (10:44)
[2024-05-19 11:01] LABS: VBG Base Excess 0.3 mmol/L; VBG HCO3 26 mmol/L (22-26); VBG pCO2 47 mmHg; VBG pH 7.35 (7.32-7.43); VBG pO2 172 mmHg
[2024-05-19 11:07] LABS: Venous Blood Gas Refer to POC result
[2024-05-19] MEDS: Furosemide 200 MG in 0.9 % Sodium Chloride 80 ML IVCONT (11:09)
--- NOTE | 2024-05-19 11:26 | P.CONCC_ITS ---
History of Present Illness Data of Consult Service Date: 05/19/24 Requesting physician: Joshua Castillo Primary Care Provider: MD CHIRAG Tucker Reason for consult: Level of care, evaluation for BiPAP support 78-year-old lady with underlying COPD not on oxygen, congestive heart failure, AFib, CKD, diabetes mellitus, CAD admitted [id number] with worsening dyspnea deemed to be secondary to exacerbation of underlying congestive failure and started on Lasix drip with slow improvement. Blood gas shows hyper oxygenation with no evidence of respiratory acidosis. Patient is awake and alert and comfortable on current regimen. Review of Systems 2 Constitutional: Constitutional: Denies daytime sleepiness, Denies excessive sweating, Denies fatigue, Denies fever(s), Denies lethargy, Denies malaise, Denies night sweats, Denies snoring and Denies weight loss Eyes: Eyes: Denies blurry vision and Denies itchy eyes ENT: Denies nasal congestion, Denies post nasal drip, Denies sinus pain, Denies sinus pressure and Denies other ( Thrush) Cardiovascular: Cardiovascular: Denies chest pain, Denies pedal edema, Denies dyspnea, Reports dyspnea on exertion, Reports orthopnea and Denies paroxysmal nocturnal dyspnea Respiratory: Respiratory: Denies cough, Denies hemoptysis, Denies excessive phlegm production, Denies dyspnea, Reports dyspnea on exertion, Denies snoring and Denies wheezing Gastrointestinal: Gastrointestinal: Denies abdominal pain and Denies heartburn Musculoskeletal: Musculoskeletal: Denies myalgias, Denies arthralgias and Denies joint swelling Integumentary/Breasts: Skin/Breast: Denies rash Neurologic: Denies memory loss and Denies seizure-like activity Psychiatric: Psychiatric: Denies abnormal sleep pattern, Denies anxiety and Denies memory loss Endocrine: Endocrine: Denies excessive sweating, Denies fatigue and Denies heat intolerance Hematologic/Lymphatic: Hematologic/Lymphatic: Denies easy bruising Allergic/Immunologic: Allergic/Immunologic: Denies itchy eyes, Denies seasonal rhinorrhea and Denies wheezing PMFSH Past Medical History Medical History CKD (chronic kidney disease) stage 3, GFR 30-59 ml/min PAD (peripheral artery disease) Diabetic ketoacidosis Major depressive disorder, recurrent, moderate Adjustment disorder CAD (coronary artery disease) GERD (gastroesophageal reflux disease) HTN (hypertension) Carotid artery occlusion Diabetes Hiatal hernia GERD (gastroesophageal reflux disease) Family History Family History Father No problems noted. Mother No problems noted. Surgical History Surgical History History of esophagogastroduodenoscopy (EGD) Social History Social History Household Members: None Housing: Apartment Do you presently have visiting nurse or other home services: Yes Alcohol intake: never Comment: patient refuses to have person standby when using bathroom Patient Tobacco Use Status: Former Tobacco user Tobacco use type: Cigarette Cigarette Packs Per Day: 1.5 Cigarettes Per Day: 30.0 Years Smoked: 40 Smoked in Last 30 Days: No Use of substances other than those prescribed or required for medical reasons: No Substance Use Type: Marijuana Advance Directives: Yes Advance Directives on File: Yes Advance Directives Date on File: 01/14/23 Do you have a plan to hurt others: No Plan service: No Current occupational status: retired Sexual orientation: Straight/Heterosexual Meds Allergies Allergy/AdvReac Type Severity Reaction Status Date / Time silver Allergy Unknown SKIN TEARS Verified 05/18/24 23:52 [From TEGADERM AG MESH] TAPE,PAPER Allergy Mild Itching Uncoded 05/18/24 23:52 Active Medications: Current Medications Acetaminophen (Acetaminophen 325 Mg Tablet) 650 mg PO Q6H PRN PRN Reason: Pain, Mild (Pain Scale 1-3), fever or headache Albuterol Sulfate (Albuterol Sulfate 90 Mcg 8 Gm Inhaler) 2 puff INHALE QID PRN PRN Reason: Wheezing Albuterol/Ipratropium (Albuterol/Iprat 2.5/0.5mg 3 Ml Ampul.Neb) 3 ml INHALE Q4H PRN PRN Reason: Wheezing Last Admin: 05/19/24 09:15 Dose: 3 ml Amiodarone HCl (Amiodarone Hcl 200 Mg Tablet) 400 mg PO BID [facility] Apixaban (Apixaban 5 Mg Tablet) 5 mg PO BID [facility] Aspirin (Aspirin Enteric Coated 81 Mg Tablet.) 81 mg PO DAILY [facility] Last Admin: 05/19/24 10:16 Dose: Not Given Atorvastatin Calcium (Atorvastatin Calcium 40 Mg Tablet) 40 mg PO BEDTIME [facility] Calcium Carbonate (Calcium Carbonate 750 Mg Tab.Chew) 750 mg PO Q4H PRN PRN Reason: Heartburn Donepezil HCl (Donepezil Hcl 5 Mg Tablet) 5 mg PO BEDTIME [facility] Empagliflozin (Empagliflozin 10 Mg Tablet) 10 mg PO DAILY [facility] Last Admin: 05/19/24 10:16 Dose: Not Given Fluticasone/Vilanterol (Fluticasone/Vilanterol 100/25 Blst.W.Dev) 1 puff INHALE RDAILY [facility] Last Admin: 05/19/24 09:32 Dose: 1 puff Glucose (Glucose Gel 15 Gm Gel..Gram.) 15 gm PO Q15M PRN; Protocol PRN Reason: per Hypoglycemia Standing Ord. Guaifenesin (Guaifenesin 200 Mg/10 Ml 10 Ml Liquid) 5 ml PO TID [facility] Last Admin: 05/19/24 10:16 Dose: Not Given Dextrose (D10) 250 mls @ 750 mls/hr IV Q15M PRN; Protocol PRN Reason: per Hypoglycemia Standing Ord. Furosemide 200 mg/ Sodium (Chloride) 100 mls @ 2.5 mls/hr IVCONT .Q24H [facility] Last Admin: 05/19/24 11:09 Dose: 5 mg/hr, 2.5 mls/hr Insulin Glargine (Insulin Glargine,Hum.Rec.Anlog 100 Unit/Ml 10 Ml Vial) 10 unit SUBCUT BEDTIME [facility] Last Admin: 05/19/24 02:42 Dose: 10 unit Insulin Human Lispro (Insulin Lispro 100 Unit/Ml 3 Ml Vial) 0.1 - 10 unit SUBCUT QIDACHS [facility]; Protocol Last Admin: 05/19/24 08:50 Dose: 2 unit Magnesium Hydroxide (Milk Of Magnesia 30 Ml Oral.Susp) 30 ml PO DAILY PRN PRN Reason: Constipation Melatonin (Melatonin 3 Mg Tablet) 6 mg PO BEDTIME PRN PRN Reason: Insomnia Metoprolol Succinate (Metoprolol Succinate Er 100 Mg Tab.Er.24h) 100 mg PO BID [facility]; Protocol Omeprazole (Omeprazole 40 Mg Capsule.) 40 mg PO DAILY@0630 [facility] Last Admin: 05/19/24 10:16 Dose: Not Given Ondansetron HCl (Ondansetron Hcl 4 Mg/2 Ml Vial) 4 mg IVPUSH Q8H PRN PRN Reason: Nausea and Vomiting Risperidone (Risperidone 0.5 Mg Tablet) 0.5 mg PO BID [facility] Last Admin: 05/19/24 10:17 Dose: Not Given Sodium Chloride (0.9 % Sodium Chloride Flush 3 Ml Syringe) 3 ml IVFLUSH QSHIFT [facility] Last Admin: 05/19/24 09:28 Dose: 3 ml Trazodone HCl (Trazodone Hcl 50 Mg Tablet) 50 mg PO BEDTIME PRN PRN Reason: Insomnia Vitamin D (Cholecalciferol (Vitamin D3) 25 Mcg Tablet) 25 mcg PO DAILY [facility] Last Admin: 05/19/24 10:16 Dose: Not Given Home Medications ?Medication ?Instructions ?Recorded ?Confirmed ?Last Taken ?Type dapagliflozin propanediol 5 mg 5 mg PO DAILY 07/31/23 05/19/24 05/18/24 History tablet (Farxiga) fluticasone furoate 100 1 ea inhalation DAILY 04/16/24 05/19/24 05/18/24 History mcg-vilanterol 25 mcg/dose inhalation powder (Breo Ellipta) insulin glargine 100 unit/mL 12 unit subcut BEDTIME 04/16/24 05/19/24 05/09/24 History subcutaneous solution (Lantus U-100 Insulin) Physical Exam 2 Vital Signs: Vital Signs: Last Vital Signs Temp 97.6 F 05/19/24 08:02 Pulse 114 H 05/19/24 10:44 Resp 28 H 05/19/24 10:09 BP 117/63 05/19/24 10:44 Pulse Ox 100 05/19/24 10:09 O2 Del Method Non-Rebreather Ma sk 05/19/24 10:09 O2 Flow Rate 15 05/19/24 10:09 BMI result Body Mass Index 22.6 Const: General: no acute distress, alert and awake Eyes: Sclerae: sclerae normal EOM: EOMs intact bilaterally Neck: Neck: Yes no lymphadenopathy, Yes trachea midline and Yes supple Resp: Effort & Inspection: normal respiratory effort and no respiratory distress Auscultation: crackles bilateral Cardio: Rate: tachycardic Rhythm: regular rhythm Heart sounds: no gallops, no murmurs and no rubs GI: Palpation (GI): Soft to palpation and Other GI palpation findings present ( Nontender) Auscultation: normal bowel sounds Extrem: General: No clubbing, No cyanosis and Yes edema (1+ bilateral) Results Labs 05/19/24 04:31 05/19/24 04:31 Labs: Short CBC 05/19/24 05/19/24 Range/Units 00:23 04:31 WBC 8.0 7.3 (4.8-10.8) X10*3/uL Hgb 10.7 L 9.5 L (12.0-16.0) g/dl Hct 32.1 L 29.0 L (37.0-47.0) % Plt Count 391 D 336 (160-400) X10*3/uL BMP 05/19/24 05/19/24 00:23 04:31 Sodium 136 133 L Potassium 4.3 4.3 Chloride 101 102 Carbon Dioxide 23 22 BUN 15 14 Creatinine 1.40 1.26 Calcium 8.9 9.0 Liver Function 05/19/24 Range/Units 00:23 Total Bilirubin 0.4 (0.0-1.0) mg/dL AST 33 H (5-31) U/L ALT 58 H (0-31) U/L Alkaline Phosphatase 96 (39-117) U/L Albumin 3.6 (3.5-5.0) g/dL Assessment and Plan (1) Acute hypoxic respiratory failure: Status: Acute (2) Acute exacerbation of CHF (congestive heart failure): Qualifiers: Heart failure type: unspecified Qualified Code(s): I50.9 - Heart failure, unspecified Status: Acute Plan Impression: 78-year-old lady with underlying CHF and COPD admitted with dyspnea secondary to acute exacerbation of underlying congestive heart failure, improving slowly with diuresis. Respiratory status currently stable and comfortable on supplemental oxygen via nasal cannula with hyperoxia and no evidence of respiratory acidosis. No BiPAP support is indicated at this time. Recommendations: Agree with current therapeutic regimen including drip diuretic. Patient does not require intensive care unit level of monitoring at this time. Please notify for re-evaluation if patient's condition changes.
[2024-05-19 11:35] LABS: Glucose, Whole Blood 124 mg/dL (60-115)
[2024-05-19 12:04] LABS: Glucose, Whole Blood 140 mg/dL (60-115)
--- NOTE | 2024-05-19 13:00 | PC.NURSE ---
16 fr amaro cath placed by JARRET yeung in ED, patient output 800ml
--- NOTE | 2024-05-19 15:17 | PC.NURSE ---
patient was on 3lNC, stated she felt sob, patient noted to be satting low 80s, patient placed on non rebreather 15l with no improvememt. inpatient provider paged to bedside. patient is alert and oriented x3, states she feels like she cant breath. patient then placed on cpap 12/45% by RT, patient now satting 92% and appears more comfortable.
--- NOTE | 2024-05-19 16:01 | P.EN_ITS ---
Event Note Date of Service: 05/19/24 Event Note: Patient seen examined Lab imaging data reviewed. physical exam unchanged from h&p except: Lungs : Air entry dimished , has b/l rales at bases and some wheezing Talking broken few words due to short of breath Using accessory muscles Patient keep the setting in 80s even with non-rebreather mask. Patient was admitted for the acute hypoxemic respiratory failure with CHF exacerbation(HFrEF) : Patient was given IV Lasix drip and started her home blood pressure medications also, given nebs also. Patient put out 1 L urine but still very dyspneic and using accessory muscles- may benefit from noninvasive ventilation d/w Icu in detail Time Spent With Patient Time: Total time managing care of this patient today ____ minutes.
[2024-05-19 16:32] LABS: ABG Base Excess 4.1 mmol/L; ABG HCO3 30 mmol/L (22-26); ABG pCO2 52 mmHg (32-45); ABG pH 7.36 (7.35-7.45); ABG pO2 74 mmHg (83-108)
--- NOTE | 2024-05-19 17:05 | PM.CCN ---
Critical Care Event Note Summary Date of Service: 05/19/24 Code activated: No Narrative: Patient with persistent dyspnea and respiratory distress, comfortable noninvasive positive pressure ventilatory support, will monitor in the intensive care unit. Critical Care Time (minutes): 0
[2024-05-19 18:28] LABS: Anion Gap 15 (12-20); Blood Urea Nitrogen 15 mg/dL (9-16); Calcium 8.8 mg/dL (8.4-10.2); Carbon Dioxide 25 mmol/L (22-29); Chloride 100 mmol/L (96-108); Creatinine Clr Calc Pharmacy 27.5; Estimated Glomerular Filt Rate 39; Glucose Random 182 mg/dL (60-115); Potassium 4.2 mmol/L (3.3-5.1); Sodium 136 mmol/L (135-145)
[2024-05-19 18:37] LABS: Glucose, Whole Blood 163 mg/dL (60-115)
[2024-05-19 20:29] LABS: ABG Refer to POC result
[2024-05-19 20:47] LABS: Glucose, Whole Blood 191 mg/dL (60-115)
[2024-05-19 22:19] LABS: VBG Base Excess 5.8 mmol/L; VBG HCO3 32 mmol/L (22-26); VBG pCO2 53 mmHg; VBG pH 7.38 (7.32-7.43); VBG pO2 30 mmHg
[2024-05-19 23:04] LABS: Anion Gap 16 (12-20); Blood Urea Nitrogen 14 mg/dL (9-16); Carbon Dioxide 27 mmol/L (22-29); Chloride 98 mmol/L (96-108); Creatinine Clr Calc Pharmacy 26.5; Estimated Glomerular Filt Rate 38; Glucose Random 197 mg/dL (60-115); Magnesium 1.6 mg/dL (1.6-2.6); Phosphorus 3.1 mg/dL (2.7-4.5); Potassium 4.2 mmol/L (3.3-5.1); Sodium 137 mmol/L (135-145)
[2024-05-20] VITALS (36 sets, daily range): BP systolic 72–187; BP diastolic 35–140; PULSE 80–134; RESP 14–29; TEMP 35.9–36.7; O2SAT 90–100; BMI 21.9
--- NOTE | 2024-05-20 | ECG_ITS ---
Test Reason : RHYTHM CHECK Blood Pressure : / mmHG Vent. Rate : 097 BPM Atrial Rate : 097 BPM P-R Int : 168 ms QRS Dur : 126 ms QT Int : 432 ms P-R-T Axes : 066 -17 061 degrees QTc Int : 548 ms Sinus rhythm with Premature atrial complexes Non-specific intra-ventricular conduction block Minimal voltage criteria for LVH, may be normal variant ( Converse product ) Possible Anterolateral infarct , age undetermined Abnormal ECG No previous ECGs available Referred By: Rain Hansen Electronically Signed By:Jose Bauman
[2024-05-20 00:47] LABS: Venous Blood Gas Refer to POC result
[2024-05-20] MEDS: Magnesium Sulfate/D5W 1 GM/100 ML PIGGYBACK IV ×2 (00:49→22:39)
[2024-05-20] MEDS: hydrALAZINE HCl 20 MG/ML VIAL 5 MG IVPUSH (01:53)
[2024-05-20] MEDS: Morphine Sulfate 2 MG/ML CARTRIDGE 1 MG IVPUSH (01:55)
[2024-05-20 04:26] LABS: VBG Base Excess 3.4 mmol/L; VBG HCO3 28 mmol/L (22-26); VBG pCO2 46 mmHg; VBG pH 7.39 (7.32-7.43); VBG pO2 46 mmHg
[2024-05-20 04:31] LABS: Venous Blood Gas Refer to POC result
[2024-05-20 04:40] LABS: MANUAL DIFF FLAG NO
[2024-05-20 04:41] LABS: Basophils Percent Auto 0.3 % (0-2); Eosinophils Percent Auto 0.3 % (0-4); Hematocrit 35.2 % (37.0-47.0); Hemoglobin 11.4 g/dl (12.0-16.0); Imm Gran Abs Auto 0.04 X10*3/uL (0.00-0.03); Imm Gran Pct Auto 0.5 % (0.0-0.4); Lymphocytes Absolute Auto 0.8 X10*3/uL (1.2-4.9); Lymphocytes Percent Auto 8.7 % (20-40); Mean Corpuscular HGB Conc 32.4 g/dl (31.0-35.0); Mean Corpuscular Hemoglobin 29.5 pg (27.0-33.0); Mean Platelet Volume 9.9 fL (9.4-12.3); Neutrophils Absolute Auto 6.8 x10*3/uL (2.0-8.3); Neutrophils Percent Auto 79.2 % (45-73); Platelet Count 383 X10*3/uL (160-400); Red Blood Count 3.87 X10*6/uL (4.20-5.50); White Blood Count 8.6 X10*3/uL (4.8-10.8)
[2024-05-20 05:16] LABS: Alanine Aminotransferase 42 U/L (0-31); Albumin Level 3.4 g/dL (3.5-5.0); Alkaline Phosphatase 93 U/L (39-117); Anion Gap 24 (12-20); Aspartate Amino Transferase 27 U/L (5-31); Bilirubin Total 0.4 mg/dL (0.0-1.0); Blood Urea Nitrogen 14 mg/dL (9-16); Calcium 9.6 mg/dL (8.4-10.2); Carbon Dioxide 18 mmol/L (22-29); Chloride 99 mmol/L (96-108); Creatinine Clr Calc Pharmacy 28.1; Estimated Glomerular Filt Rate 41; Glucose Random 216 mg/dL (60-115); Phosphorus 2.9 mg/dL (2.7-4.5); Potassium 4.2 mmol/L (3.3-5.1); Sodium 137 mmol/L (135-145); Total Protein 6.9 g/dL (6.5-8.0)
[2024-05-20] MEDS: hydrALAZINE HCl 20 MG/ML VIAL 10 MG IVPUSH (05:32)
[2024-05-20] MEDS: ondansetron HCL 4 MG/2 ML VIAL IVPUSH (06:18)
[2024-05-20] MEDS: Furosemide 200 MG in 0.9 % Sodium Chloride 80 ML IVCONT (06:24)
[2024-05-20] MEDS: niCARdipine HCL 25 MG in 0.9 % Sodium Chloride 240 ML 50 MG IVCONT (06:40)
[2024-05-20] MEDS: Amiodarone HCL 200 MG TABLET 400 MG PO (07:59)
[2024-05-20 08:00] LABS: Glucose, Whole Blood 213 mg/dL (60-115)
[2024-05-20] MEDS: Apixaban 5 MG TABLET PO ×2 (08:00→20:47)
[2024-05-20] MEDS: risperiDONE 0.5 MG TABLET PO ×2 (08:00→20:47)
[2024-05-20] MEDS: Cholecalciferol (Vitamin D3) 25 MCG TABLET PO (08:00)
[2024-05-20] MEDS: 0.9 % Sodium Chloride Flush 3 ML SYRINGE IVFLUSH ×2 (08:04→15:56)
[2024-05-20] MEDS: Insulin Lispro 100 UNIT/ML 3 ML VIAL SUBCUT ×3 (08:25→21:14)
[2024-05-20] MEDS: Aspirin Enteric Coated 81 MG TABLET.DR PO (08:25)
[2024-05-20] MEDS: Chlorothiazide Sodium 500 MG VIAL IVPUSH (10:08)
[2024-05-20] MEDS: amLODIPine Besylate 10 MG TABLET PO (10:08)
--- NOTE | 2024-05-20 11:08 | P.PNCC_ITS ---
Subjective Subjective Date of Service: 05/20/24 Interval History: 78-year-old lady with underlying COPD not on oxygen, severe systolic congestive heart failure, AFib, CKD, diabetes mellitus, CAD admitted [id number] with worsening dyspnea deemed to be secondary to exacerbation of underlying congestive failure and started on Lasix drip with slow improvement, requiring noninvasive positive pressure ventilatory support, thus transferred to intensive care unit. Evaluated by Cardiology service. No events overnight. Titrated off CPAP support. Required Cardene drip. Urine output is tapering off. Critical Care Time (minutes): 0 Physical Exam 2 Vital Signs: Vital Signs: Last Vital Signs Temp 98.0 F 05/20/24 08:00 Pulse 100 05/20/24 10:00 Resp 22 H 05/20/24 10:00 BP 113/41 L 05/20/24 10:00 Pulse Ox 93 05/20/24 10:00 O2 Del Method Nasal Cannula 05/20/24 10:00 O2 Flow Rate 2 05/20/24 10:00 FiO2 30 05/20/24 07:00 BMI result Body Mass Index 21.9 Const: General: no acute distress, alert and awake Eyes: Sclerae: sclerae normal EOM: EOMs intact bilaterally Neck: Neck: Yes no lymphadenopathy, Yes trachea midline and Yes supple Resp: Effort & Inspection: normal respiratory effort and no respiratory distress Auscultation: crackles (Bibasilar) Cardio: Rate: regular rate Rhythm: regular rhythm Heart sounds: no gallops, no murmurs and no rubs GI: Palpation (GI): Soft to palpation and Other GI palpation findings present ( Nontender) Auscultation: normal bowel sounds Extrem: General: No clubbing, No cyanosis and Yes edema (Trace bilateral) Objective Data Labs 05/20/24 04:21 05/20/24 04:21 Labs: Laboratory Results - last 24 hr 05/19/24 05/19/24 05/19/24 11:23 11:52 16:22 WBC RBC Hgb Hct MCV MCH MCHC RDW Plt Count MPV Immature Gran % (Auto) Neut % (Auto) Lymph % (Auto) [place] % (Auto) Eos % (Auto) Baso % (Auto) Lymph # (Auto) [place] # (Auto) Eos # (Auto) Baso # (Auto) Abs Immat Gran (auto) Absolute Neuts (auto) Absolute Nucleated RBC Nucleated RBC % (auto) O2 Saturation 95.0 ABG pH at Pt Temp 7.36 ABG pCO2 at Pt Temp 52 H ABG pO2 at Pt Temp 74 L ABG HCO3 30 H ABG Base Excess (Actual) 4.1 VBG pH VBG pCO2 VBG pO2 VBG HCO3 VBG O2 Saturation VBG Base Excess Sodium Potassium Chloride Carbon Dioxide Anion Gap BUN Creatinine Estim Creat Clear Calc Estimated GFR POC Glucose 124 H 140 H Random Glucose Calcium Phosphorus Magnesium Total Bilirubin AST ALT Alkaline Phosphatase Total Protein Albumin 05/19/24 05/19/24 05/19/24 18:11 18:33 20:43 WBC RBC Hgb Hct MCV MCH MCHC RDW Plt Count MPV Immature Gran % (Auto) Neut % (Auto) Lymph % (Auto) [place] % (Auto) Eos % (Auto) Baso % (Auto) Lymph # (Auto) [place] # (Auto) Eos # (Auto) Baso # (Auto) Abs Immat Gran (auto) Absolute Neuts (auto) Absolute Nucleated RBC Nucleated RBC % (auto) O2 Saturation ABG pH at Pt Temp ABG pCO2 at Pt Temp ABG pO2 at Pt Temp ABG HCO3 ABG Base Excess (Actual) VBG pH VBG pCO2 VBG pO2 VBG HCO3 VBG O2 Saturation VBG Base Excess Sodium 136 Potassium 4.2 Chloride 100 Carbon Dioxide 25 Anion Gap 15 BUN 15 Creatinine 1.31 Estim Creat Clear Calc 27.5 Estimated GFR 39 POC Glucose 163 H 191 H Random Glucose 182 H Calcium 8.8 Phosphorus Magnesium Total Bilirubin AST ALT Alkaline Phosphatase Total Protein Albumin 05/19/24 05/19/24 05/20/24 22:08 22:12 04:15 WBC RBC Hgb Hct MCV MCH MCHC RDW Plt Count MPV Immature Gran % (Auto) Neut % (Auto) Lymph % (Auto) [place] % (Auto) Eos % (Auto) Baso % (Auto) Lymph # (Auto) [place] # (Auto) Eos # (Auto) Baso # (Auto) Abs Immat Gran (auto) Absolute Neuts (auto) Absolute Nucleated RBC Nucleated RBC % (auto) O2 Saturation ABG pH at Pt Temp ABG pCO2 at Pt Temp ABG pO2 at Pt Temp ABG HCO3 ABG Base Excess (Actual) VBG pH 7.38 7.39 VBG pCO2 53 46 VBG pO2 30 46 VBG HCO3 32 H 28 H VBG O2 Saturation 44.0 76.0 VBG Base Excess 5.8 3.4 Sodium 137 Potassium 4.2 Chloride 98 Carbon Dioxide 27 Anion Gap 16 BUN 14 Creatinine 1.36 Estim Creat Clear Calc 26.5 Estimated GFR 38 POC Glucose Random Glucose 197 H Calcium 9.0 Phosphorus 3.1 Magnesium 1.6 Total Bilirubin AST ALT Alkaline Phosphatase Total Protein Albumin 05/20/24 05/20/24 04:21 07:57 WBC 8.6 RBC 3.87 L Hgb 11.4 L Hct 35.2 L D MCV 91.0 MCH 29.5 MCHC 32.4 RDW 16.0 Plt Count 383 MPV 9.9 Immature Gran % (Auto) 0.5 H Neut % (Auto) 79.2 H Lymph % (Auto) 8.7 L [place] % (Auto) 11.0 Eos % (Auto) 0.3 Baso % (Auto) 0.3 Lymph # (Auto) 0.8 L [place] # (Auto) 1.0 Eos # (Auto) 0.0 Baso # (Auto) 0.0 Abs Immat Gran (auto) 0.04 H Absolute Neuts (auto) 6.8 Absolute Nucleated RBC 0.000 Nucleated RBC % (auto) 0.0 O2 Saturation ABG pH at Pt Temp ABG pCO2 at Pt Temp ABG pO2 at Pt Temp ABG HCO3 ABG Base Excess (Actual) VBG pH VBG pCO2 VBG pO2 VBG HCO3 VBG O2 Saturation VBG Base Excess Sodium 137 Potassium 4.2 Chloride 99 Carbon Dioxide 18 L Anion Gap 24 H BUN 14 Creatinine 1.28 Estim Creat Clear Calc 28.1 Estimated GFR 41 POC Glucose 213 H Random Glucose 216 H Calcium 9.6 D Phosphorus 2.9 Magnesium 2.0 Total Bilirubin 0.4 AST 27 ALT 42 H Alkaline Phosphatase 93 Total Protein 6.9 Albumin 3.4 L Microbiology Microbiology Results: Microbiology 05/19/24 00:23 Blood - Venous Blood Culture - Preliminary No growth after 24 hours. 05/18/24 23:47 Blood - Venous Blood Culture - Preliminary No growth after 24 hours. Progress Note: A&P Assessment and plan (1) Hypertensive urgency: Status: Acute (2) Congestive heart failure: Status: Acute (3) CAD (coronary artery disease): Status: Acute (4) PAF (paroxysmal atrial fibrillation): Status: Acute (5) Diabetes: Status: Acute (6) CKD (chronic kidney disease) stage 3, GFR 30-59 ml/min: Status: Chronic (7) Acute hypoxic respiratory failure: Status: Acute Plan Assessment: 78-year-old lady admitted with dyspnea and hypoxia secondary to acute on chronic systolic congestive heart failure requiring CPAP support Plan: Neuro: No acute issues. Cardiac: Advanced systolic congestive heart failure with an acute exacerbation improving with diuresis. Cardiology service care appreciated. Beta-hilda held secondary to heart failure exacerbation. Underlying AFib. Hypertensive urgency requiring Cardene drip, continue to titrate off as tolerated. Pulmonary: Acute hypoxic respiratory failure secondary to exacerbation of underlying congestive heart failure initially requiring noninvasive positive pressure ventilatory support, now titrated down to nasal cannula. Renal: No acute issues. Endo: No acute issues. GI: No acute issues. ID: No acute issues Heme/Onc: No acute issues. Psych: No acute issues. Miscellaneous: No acute issues. Prophylaxis: Apixaban Diet: Cardiac Quality Stroke Does the patient have a stroke diagnosis?: No VTE Prior VTE?: No VTE Risk Level:: Medical - moderate - high VTE Device Contraindication: Treatment Not Indicated VTE Drug Contraindication: N/A - Med Ordered
--- NOTE | 2024-05-20 11:14 | P.PNCA_ITS ---
Subjective Subjective Date of Service: 05/20/24 Interval history: Examined at bedside. Sleeping flat in bed with supplemental oxygen. Negative 1347 mL Physical Exam Vital Signs: Last Vital Signs Temp 98.0 F 05/20/24 08:00 Pulse 100 05/20/24 10:00 Resp 22 H 05/20/24 10:00 BP 113/41 L 05/20/24 10:00 Pulse Ox 93 05/20/24 10:00 O2 Del Method Nasal Cannula 05/20/24 10:00 O2 Flow Rate 2 05/20/24 10:00 FiO2 30 05/20/24 07:00 BMI result Body Mass Index 21.9 GENERAL APPEARANCE: Sleeping flat in bed with supplemental oxygen. NECK: no carotid bruit, mild jugular venous distention. SKIN: no suspicious lesions, warm and dry. Skin bruising. HEART: no murmurs, regular rate and rhythm. LUNGS: Clear to auscultation anteriorly. ABDOMEN: soft, nontender. EXTREMITIES: no edema. Objective Labs and Meds 05/20/24 04:21 05/20/24 04:21 Lab results: Laboratory Results - last 24 hr 05/19/24 05/19/24 05/19/24 11:23 11:52 16:22 WBC RBC Hgb Hct MCV MCH MCHC RDW Plt Count MPV Immature Gran % (Auto) Neut % (Auto) Lymph % (Auto) [place] % (Auto) Eos % (Auto) Baso % (Auto) Lymph # (Auto) [place] # (Auto) Eos # (Auto) Baso # (Auto) Abs Immat Gran (auto) Absolute Neuts (auto) Absolute Nucleated RBC Nucleated RBC % (auto) O2 Saturation 95.0 ABG pH at Pt Temp 7.36 ABG pCO2 at Pt Temp 52 H ABG pO2 at Pt Temp 74 L ABG HCO3 30 H ABG Base Excess (Actual) 4.1 VBG pH VBG pCO2 VBG pO2 VBG HCO3 VBG O2 Saturation VBG Base Excess Sodium Potassium Chloride Carbon Dioxide Anion Gap BUN Creatinine Estim Creat Clear Calc Estimated GFR POC Glucose 124 H 140 H Random Glucose Calcium Phosphorus Magnesium Total Bilirubin AST ALT Alkaline Phosphatase Total Protein Albumin 05/19/24 05/19/24 05/19/24 18:11 18:33 20:43 WBC RBC Hgb Hct MCV MCH MCHC RDW Plt Count MPV Immature Gran % (Auto) Neut % (Auto) Lymph % (Auto) [place] % (Auto) Eos % (Auto) Baso % (Auto) Lymph # (Auto) [place] # (Auto) Eos # (Auto) Baso # (Auto) Abs Immat Gran (auto) Absolute Neuts (auto) Absolute Nucleated RBC Nucleated RBC % (auto) O2 Saturation ABG pH at Pt Temp ABG pCO2 at Pt Temp ABG pO2 at Pt Temp ABG HCO3 ABG Base Excess (Actual) VBG pH VBG pCO2 VBG pO2 VBG HCO3 VBG O2 Saturation VBG Base Excess Sodium 136 Potassium 4.2 Chloride 100 Carbon Dioxide 25 Anion Gap 15 BUN 15 Creatinine 1.31 Estim Creat Clear Calc 27.5 Estimated GFR 39 POC Glucose 163 H 191 H Random Glucose 182 H Calcium 8.8 Phosphorus Magnesium Total Bilirubin AST ALT Alkaline Phosphatase Total Protein Albumin 05/19/24 05/19/24 05/20/24 22:08 22:12 04:15 WBC RBC Hgb Hct MCV MCH MCHC RDW Plt Count MPV Immature Gran % (Auto) Neut % (Auto) Lymph % (Auto) [place] % (Auto) Eos % (Auto) Baso % (Auto) Lymph # (Auto) [place] # (Auto) Eos # (Auto) Baso # (Auto) Abs Immat Gran (auto) Absolute Neuts (auto) Absolute Nucleated RBC Nucleated RBC % (auto) O2 Saturation ABG pH at Pt Temp ABG pCO2 at Pt Temp ABG pO2 at Pt Temp ABG HCO3 ABG Base Excess (Actual) VBG pH 7.38 7.39 VBG pCO2 53 46 VBG pO2 30 46 VBG HCO3 32 H 28 H VBG O2 Saturation 44.0 76.0 VBG Base Excess 5.8 3.4 Sodium 137 Potassium 4.2 Chloride 98 Carbon Dioxide 27 Anion Gap 16 BUN 14 Creatinine 1.36 Estim Creat Clear Calc 26.5 Estimated GFR 38 POC Glucose Random Glucose 197 H Calcium 9.0 Phosphorus 3.1 Magnesium 1.6 Total Bilirubin AST ALT Alkaline Phosphatase Total Protein Albumin 05/20/24 05/20/24 04:21 07:57 WBC 8.6 RBC 3.87 L Hgb 11.4 L Hct 35.2 L D MCV 91.0 MCH 29.5 MCHC 32.4 RDW 16.0 Plt Count 383 MPV 9.9 Immature Gran % (Auto) 0.5 H Neut % (Auto) 79.2 H Lymph % (Auto) 8.7 L [place] % (Auto) 11.0 Eos % (Auto) 0.3 Baso % (Auto) 0.3 Lymph # (Auto) 0.8 L [place] # (Auto) 1.0 Eos # (Auto) 0.0 Baso # (Auto) 0.0 Abs Immat Gran (auto) 0.04 H Absolute Neuts (auto) 6.8 Absolute Nucleated RBC 0.000 Nucleated RBC % (auto) 0.0 O2 Saturation ABG pH at Pt Temp ABG pCO2 at Pt Temp ABG pO2 at Pt Temp ABG HCO3 ABG Base Excess (Actual) VBG pH VBG pCO2 VBG pO2 VBG HCO3 VBG O2 Saturation VBG Base Excess Sodium 137 Potassium 4.2 Chloride 99 Carbon Dioxide 18 L Anion Gap 24 H BUN 14 Creatinine 1.28 Estim Creat Clear Calc 28.1 Estimated GFR 41 POC Glucose 213 H Random Glucose 216 H Calcium 9.6 D Phosphorus 2.9 Magnesium 2.0 Total Bilirubin 0.4 AST 27 ALT 42 H Alkaline Phosphatase 93 Total Protein 6.9 Albumin 3.4 L Progress Note: A&P Assessment and plan (1) PAF (paroxysmal atrial fibrillation): Status: Acute (2) Acute exacerbation of CHF (congestive heart failure): Status: Acute Plan [age] year female with congestive heart failure. She has left bundle- branch block and also had AFib with RVR but now in sinus rhythm. She got readmitted with congestive heart failure and is currently in the ICU on Lasix drip. She is -1300 mL. Blood pressure was quite elevated and it appears she required Cardene drip. Blood pressure is improving at this stage. Try weaning off the Cardene and start oral hydralazine 25 mg t.i.d. along with isosorbide mononitrate 30 mg daily. Oral hydralazine can be titrated further. On amiodarone for atrial fibrillation and currently is in sinus rhythm. Continue amiodarone along with Eliquis. She was on a fairly high dose of Toprol-XL. As she gets diurese further we can resume at 50 mg and titrate based on blood pressure and heart rate. We will follow along with you. Thank you for allowing me to participate in the care of your patient. Please feel free to contact me if you have any questions. Time Spent With Patient Time: Total time managing care of this patient today ____ minutes. Progress Note: Quality Stroke Does the patient have a stroke diagnosis?: No Procedures Date of Service Date of Service: 05/20/24
--- NOTE | 2024-05-20 11:33 | PC.NURSE ---
Per MD, Nicardipine gtt paused after PO amlodipine given. Will monitor pt response.
[2024-05-20 11:48] LABS: Glucose, Whole Blood 160 mg/dL (60-115)
[2024-05-20] MEDS: Amiodarone/Dextrose 150 MG/100 ML PLAST..BAG 600 MG IV (13:25)
[2024-05-20] MEDS: Amiodarone HCL 900 MG in 0.9 % Sodium Chloride 500 ML 34.53 MG IVCONT (13:40)
[2024-05-20 13:46] LABS: Glucose, Whole Blood 145 mg/dL (60-115)
--- NOTE | 2024-05-20 14:23 | MHC.CM.PN ---
Pt not able to participate in CM assessment: call placed to pt's dtr/HCP Marian who states pt lives alone and has VNA through [facility]. She also has [facility] for housekeeping and transportation to appointments. Pt uses a walker and cane and has been to [facility] in the past. Pt should have a PT eval once medically stable to ensure ability to return to home vs SNF. No SNF referrals made at this time. IMM in chart: HCP on file. CM to follow
[2024-05-20] MEDS: Norepinephrine Bitartrate/D5W 8 MG/250 ML PLAST..BAG 4.92 MG IVCONT (14:25)
[2024-05-20 16:21] LABS: Glucose, Whole Blood 114 mg/dL (60-115)
[2024-05-20] MEDS: Atorvastatin Calcium 40 MG TABLET PO (20:47)
[2024-05-20 21:07] LABS: Glucose, Whole Blood 175 mg/dL (60-115)
[2024-05-20] MEDS: Insulin Glargine,Hum.rec.anlog 100 UNIT/ML 10 ML VIAL 10 UNIT SUBCUT (21:14)
[2024-05-20 21:16] LABS: Anion Gap 16 (12-20); Blood Urea Nitrogen 16 mg/dL (9-16); Calcium 8.8 mg/dL (8.4-10.2); Carbon Dioxide 26 mmol/L (22-29); Chloride 96 mmol/L (96-108); Creatinine Clr Calc Pharmacy 22.3; Estimated Glomerular Filt Rate 31; Glucose Random 163 mg/dL (60-115); Magnesium 1.7 mg/dL (1.6-2.6); Phosphorus 3.3 mg/dL (2.7-4.5); Potassium 3.7 mmol/L (3.3-5.1); Sodium 134 mmol/L (135-145)
[2024-05-20] MEDS: Albumin Human 25 % 100 ML IV (23:43)
[2024-05-21] VITALS (33 sets, daily range): BP systolic 97–146; BP diastolic 33–78; PULSE 77–125; RESP 13–30; TEMP 36.2–37.1; O2SAT 90–100; BMI 22.1
[2024-05-21] MEDS: Albumin Human 25 % 100 ML IV (00:45)
[2024-05-21] MEDS: 0.9 % Sodium Chloride Flush 3 ML SYRINGE IVFLUSH ×4 (00:45→23:27)
[2024-05-21 00:50] LABS: Venous Blood Gas Refer to POC result
[2024-05-21 01:04] LABS: Anion Gap 15 (12-20); Blood Urea Nitrogen 16 mg/dL (9-16); Calcium 8.9 mg/dL (8.4-10.2); Carbon Dioxide 29 mmol/L (22-29); Chloride 96 mmol/L (96-108); Creatinine Clr Calc Pharmacy 21.6; Estimated Glomerular Filt Rate 30; Glucose Random 170 mg/dL (60-115); Potassium 3.6 mmol/L (3.3-5.1); Sodium 136 mmol/L (135-145)
[2024-05-21 01:10] LABS: B Type Natriuretic Peptide 814 pg/mL (<100)
[2024-05-21 01:12] LABS: Troponin-I High Sensitivity 43.9 ng/L (<3.5-17.0)
[2024-05-21 01:13] LABS: VBG Base Excess 4.7 mmol/L; VBG HCO3 30 mmol/L (22-26); VBG pCO2 47 mmHg; VBG pO2 62 mmHg
[2024-05-21] MEDS: Potassium Chloride Packet 20 MEQ PACKET 40 MEQ PO (02:24)
[2024-05-21 05:31] LABS: VBG HCO3 33 mmol/L (22-26); VBG pCO2 54 mmHg; VBG pH 7.38 (7.32-7.43); VBG pO2 47 mmHg
[2024-05-21 05:47] LABS: MANUAL DIFF FLAG NO
[2024-05-21 05:56] LABS: Basophils Percent Auto 0.4 % (0-2); Eosinophils Absolute Auto 0.1 X10*3/uL (0.0-0.4); Eosinophils Percent Auto 1.5 % (0-4); Hematocrit 26.4 % (37.0-47.0); Hemoglobin 8.6 g/dl (12.0-16.0); Imm Gran Abs Auto 0.03 X10*3/uL (0.00-0.03); Imm Gran Pct Auto 0.4 % (0.0-0.4); Lymphocytes Absolute Auto 1.1 X10*3/uL (1.2-4.9); Lymphocytes Percent Auto 13.9 % (20-40); Mean Corpuscular HGB Conc 32.6 g/dl (31.0-35.0); Mean Corpuscular Hemoglobin 29.5 pg (27.0-33.0); Mean Corpuscular Volume 90.4 fL (80.0-98.0); Mean Platelet Volume 10.1 fL (9.4-12.3); Monocytes Percent Auto 12.5 % (2-11); Neutrophils Absolute Auto 5.8 x10*3/uL (2.0-8.3); Neutrophils Percent Auto 71.3 % (45-73); Platelet Count 322 X10*3/uL (160-400); Red Blood Count 2.92 X10*6/uL (4.20-5.50); Red Cell Distribution Width 15.8 % (11.0-16.0); White Blood Count 8.2 X10*3/uL (4.8-10.8)
[2024-05-21] MEDS: Omeprazole 40 MG CAPSULE.DR PO (05:57)
[2024-05-21 06:12] LABS: Anion Gap 16 (12-20); Blood Urea Nitrogen 16 mg/dL (9-16); Calcium 9.1 mg/dL (8.4-10.2); Carbon Dioxide 27 mmol/L (22-29); Chloride 97 mmol/L (96-108); Creatinine Clr Calc Pharmacy 21.2; Estimated Glomerular Filt Rate 29; Glucose Random 154 mg/dL (60-115); Magnesium 2.1 mg/dL (1.6-2.6); Phosphorus 3.2 mg/dL (2.7-4.5); Potassium 4.6 mmol/L (3.3-5.1); Sodium 135 mmol/L (135-145)
[2024-05-21 06:20] LABS: Venous Blood Gas Refer to POC result
[2024-05-21 08:01] LABS: Glucose, Whole Blood 151 mg/dL (60-115)
[2024-05-21] MEDS: risperiDONE 0.5 MG TABLET PO ×2 (09:49→21:28)
[2024-05-21] MEDS: Cholecalciferol (Vitamin D3) 25 MCG TABLET PO (09:49)
[2024-05-21] MEDS: Apixaban 5 MG TABLET PO ×2 (09:50→21:27)
[2024-05-21] MEDS: Aspirin Enteric Coated 81 MG TABLET.DR PO (09:50)
[2024-05-21] MEDS: fentaNYL citrate/PF 100 MCG/2 ML VIAL 25 MCG IVPUSH ×2 (10:05→15:02)
--- NOTE | 2024-05-21 10:20 | PM.CCPN ---
Subjective Subjective Date of Service: 05/21/24 Interval History: 78-year-old lady with underlying COPD not on oxygen, severe systolic congestive heart failure, AFib, CKD, diabetes mellitus, CAD admitted [id number] with worsening dyspnea deemed to be secondary to exacerbation of underlying congestive failure and started on Lasix drip with slow improvement, requiring noninvasive positive pressure ventilatory support, thus transferred to intensive care unit. Evaluated by Cardiology service. Patient with paroxysmal AFib with RVR requiring loading with IV amiodarone and briefly pressor support, also with development of acute renal failure and oliguria. No events overnight. Critical Care Time (minutes): 60 Physical Exam Vital Signs: Vital Signs: Last Vital Signs Temp 97.7 F 05/21/24 04:00 Pulse 99 05/21/24 10:00 Resp 18 05/21/24 09:00 BP 146/62 H 05/21/24 10:00 Pulse Ox 99 05/21/24 09:00 O2 Del Method Nasal Cannula 05/21/24 09:00 O2 Flow Rate 2 05/21/24 09:00 FiO2 30 05/20/24 07:00 BMI result Body Mass Index 22.1 Const: General: no acute distress, alert and awake Eyes: Sclerae: sclerae normal EOM: EOMs intact bilaterally Neck: Neck: Yes no lymphadenopathy, Yes trachea midline and Yes supple Resp: Effort & Inspection: normal respiratory effort and no respiratory distress Auscultation: crackles (Bibasilar) Cardio: Rate: regular rate Rhythm: regular rhythm Heart sounds: no gallops, no murmurs and no rubs GI: Palpation (GI): Soft to palpation and Other GI palpation findings present ( Nontender) Auscultation: normal bowel sounds Extrem: General: No clubbing, No cyanosis and Yes edema (Trace bilateral) Objective Data Labs 05/21/24 05:25 05/21/24 05:25 Labs: Laboratory Results - last 24 hr 05/20/24 05/20/24 05/20/24 11:43 13:43 16:18 WBC RBC Hgb Hct MCV MCH MCHC RDW Plt Count MPV Immature Gran % (Auto) Neut % (Auto) Lymph % (Auto) [place] % (Auto) Eos % (Auto) Baso % (Auto) Lymph # (Auto) [place] # (Auto) Eos # (Auto) Baso # (Auto) Abs Immat Gran (auto) Absolute Neuts (auto) Absolute Nucleated RBC Nucleated RBC % (auto) VBG pH VBG pCO2 VBG pO2 VBG HCO3 VBG O2 Saturation VBG Base Excess Sodium Potassium Chloride Carbon Dioxide Anion Gap BUN Creatinine Estim Creat Clear Calc Estimated GFR POC Glucose 160 H 145 H 114 Random Glucose Calcium Phosphorus Magnesium Troponin I High Sens B-Natriuretic Peptide Albumin 05/20/24 05/20/24 05/21/24 20:19 21:04 00:41 WBC RBC Hgb Hct MCV MCH MCHC RDW Plt Count MPV Immature Gran % (Auto) Neut % (Auto) Lymph % (Auto) [place] % (Auto) Eos % (Auto) Baso % (Auto) Lymph # (Auto) [place] # (Auto) Eos # (Auto) Baso # (Auto) Abs Immat Gran (auto) Absolute Neuts (auto) Absolute Nucleated RBC Nucleated RBC % (auto) VBG pH VBG pCO2 VBG pO2 VBG HCO3 VBG O2 Saturation VBG Base Excess Sodium 134 L 136 Potassium 3.7 3.6 Chloride 96 96 Carbon Dioxide 26 29 Anion Gap 16 15 BUN 16 16 Creatinine 1.62 H 1.67 H Estim Creat Clear Calc 22.3 21.6 Estimated GFR 31 30 POC Glucose 175 H Random Glucose 163 H 170 H Calcium 8.8 D 8.9 Phosphorus 3.3 3.0 Magnesium 1.7 2.0 Troponin I High Sens 43.9 H B-Natriuretic Peptide 814 H Albumin 05/21/24 05/21/24 05/21/24 00:48 05:19 05:25 WBC 8.2 RBC 2.92 L D Hgb 8.6 L D Hct 26.4 L D MCV 90.4 MCH 29.5 MCHC 32.6 RDW 15.8 Plt Count 322 MPV 10.1 Immature Gran % (Auto) 0.4 Neut % (Auto) 71.3 Lymph % (Auto) 13.9 L [place] % (Auto) 12.5 H Eos % (Auto) 1.5 Baso % (Auto) 0.4 Lymph # (Auto) 1.1 L [place] # (Auto) 1.0 Eos # (Auto) 0.1 Baso # (Auto) 0.0 Abs Immat Gran (auto) 0.03 Absolute Neuts (auto) 5.8 Absolute Nucleated RBC 0.000 Nucleated RBC % (auto) 0.0 VBG pH 7.40 7.38 VBG pCO2 47 54 VBG pO2 62 47 VBG HCO3 30 H 33 H VBG O2 Saturation 89.0 78.0 VBG Base Excess 4.7 7.0 Sodium 135 Potassium 4.6 D Chloride 97 Carbon Dioxide 27 Anion Gap 16 BUN 16 Creatinine 1.70 H Estim Creat Clear Calc 21.2 Estimated GFR 29 POC Glucose Random Glucose 154 H Calcium 9.1 Phosphorus 3.2 Magnesium 2.1 Troponin I High Sens B-Natriuretic Peptide Albumin 4.0 05/21/24 07:51 WBC RBC Hgb Hct MCV MCH MCHC RDW Plt Count MPV Immature Gran % (Auto) Neut % (Auto) Lymph % (Auto) [place] % (Auto) Eos % (Auto) Baso % (Auto) Lymph # (Auto) [place] # (Auto) Eos # (Auto) Baso # (Auto) Abs Immat Gran (auto) Absolute Neuts (auto) Absolute Nucleated RBC Nucleated RBC % (auto) VBG pH VBG pCO2 VBG pO2 VBG HCO3 VBG O2 Saturation VBG Base Excess Sodium Potassium Chloride Carbon Dioxide Anion Gap BUN Creatinine Estim Creat Clear Calc Estimated GFR POC Glucose 151 H Random Glucose Calcium Phosphorus Magnesium Troponin I High Sens B-Natriuretic Peptide Albumin Microbiology Microbiology Results: Microbiology 05/19/24 00:23 Blood - Venous Blood Culture - Preliminary No growth after 48 hours. 05/18/24 23:47 Blood - Venous Blood Culture - Preliminary No growth after 48 hours. Progress Note: A&P Assessment and plan (1) Congestive heart failure: Status: Acute (2) PAF (paroxysmal atrial fibrillation): Status: Acute (3) Diabetes: Status: Acute (4) Acute hypoxic respiratory failure: Status: Acute (5) LAURO (acute kidney injury): Status: Acute Plan Assessment: 78-year-old lady admitted with dyspnea and hypoxia secondary to acute on chronic systolic congestive heart failure requiring CPAP support Plan: Neuro: No acute issues. Cardiac: Advanced systolic congestive heart failure with an acute exacerbation improving with diuresis. Cardiology service care appreciated. Beta-hilda held secondary to heart failure exacerbation. Underlying AFib requiring amiodarone loading. Hypertensive urgency requiring Cardene drip, resolved. Pulmonary: Acute hypoxic respiratory failure secondary to exacerbation of underlying congestive heart failure initially requiring noninvasive positive pressure ventilatory support, now titrated down to nasal cannula. Renal: Acute renal failure with development of oliguria, likely secondary to acute congestive heart failure. Continue to monitor renal indices and urine output. Endo: No acute issues. GI: No acute issues. ID: No acute issues Heme/Onc: No acute issues. Psych: No acute issues. Miscellaneous: No acute issues. Prophylaxis: Apixaban Diet: Cardiac Quality Stroke Does the patient have a stroke diagnosis?: No VTE Prior VTE?: No VTE Risk Level:: Medical - moderate - high VTE Device Contraindication: Treatment Not Indicated VTE Drug Contraindication: N/A - Med Ordered
[2024-05-21] MEDS: Amiodarone HCL 200 MG TABLET 400 MG PO ×2 (10:26→21:27)
[2024-05-21 11:54] LABS: Glucose, Whole Blood 167 mg/dL (60-115)
--- NOTE | 2024-05-21 12:17 | P.PNCA_ITS ---
Subjective Subjective Date of Service: 05/21/24 Interval history: Seen and examined at bedside. She apparently developed AFib with RVR yesterday and required Levophed afterwards. She was previously on Cardene for hypertension and blood pressure apparently came down when she developed atrial fibrillation requiring pressors. She was given amiodarone bolus and she converted back to sinus rhythm. She is on oral load 400 mg twice a day. Physical Exam Vital Signs: Last Vital Signs Temp 98.7 F 05/21/24 12:00 Pulse 94 05/21/24 12:00 Resp 26 H 05/21/24 12:00 BP 135/58 L 05/21/24 12:00 Pulse Ox 94 05/21/24 12:00 O2 Del Method Nasal Cannula 05/21/24 12:00 O2 Flow Rate 2 05/21/24 12:00 FiO2 30 05/20/24 07:00 BMI result Body Mass Index 22.1 GENERAL APPEARANCE: In no acute distress. On supplemental oxygen. NECK: no carotid bruit, + jugular venous distention. SKIN: no suspicious lesions, warm and dry. Skin bruising. HEART: no murmurs, regular rate and rhythm. LUNGS: Crackles at bases. No wheezes. ABDOMEN: soft, nontender. EXTREMITIES: no edema. Objective Labs and Meds 05/21/24 05:25 05/21/24 05:25 Lab results: Laboratory Results - last 24 hr 05/20/24 05/20/24 05/20/24 13:43 16:18 20:19 WBC RBC Hgb Hct MCV MCH MCHC RDW Plt Count MPV Immature Gran % (Auto) Neut % (Auto) Lymph % (Auto) [place] % (Auto) Eos % (Auto) Baso % (Auto) Lymph # (Auto) [place] # (Auto) Eos # (Auto) Baso # (Auto) Abs Immat Gran (auto) Absolute Neuts (auto) Absolute Nucleated RBC Nucleated RBC % (auto) VBG pH VBG pCO2 VBG pO2 VBG HCO3 VBG O2 Saturation VBG Base Excess Sodium 134 L Potassium 3.7 Chloride 96 Carbon Dioxide 26 Anion Gap 16 BUN 16 Creatinine 1.62 H Estim Creat Clear Calc 22.3 Estimated GFR 31 POC Glucose 145 H 114 Random Glucose 163 H Calcium 8.8 D Phosphorus 3.3 Magnesium 1.7 Troponin I High Sens B-Natriuretic Peptide Albumin 05/20/24 05/21/24 05/21/24 21:04 00:41 00:48 WBC RBC Hgb Hct MCV MCH MCHC RDW Plt Count MPV Immature Gran % (Auto) Neut % (Auto) Lymph % (Auto) [place] % (Auto) Eos % (Auto) Baso % (Auto) Lymph # (Auto) [place] # (Auto) Eos # (Auto) Baso # (Auto) Abs Immat Gran (auto) Absolute Neuts (auto) Absolute Nucleated RBC Nucleated RBC % (auto) VBG pH 7.40 VBG pCO2 47 VBG pO2 62 VBG HCO3 30 H VBG O2 Saturation 89.0 VBG Base Excess 4.7 Sodium 136 Potassium 3.6 Chloride 96 Carbon Dioxide 29 Anion Gap 15 BUN 16 Creatinine 1.67 H Estim Creat Clear Calc 21.6 Estimated GFR 30 POC Glucose 175 H Random Glucose 170 H Calcium 8.9 Phosphorus 3.0 Magnesium 2.0 Troponin I High Sens 43.9 H B-Natriuretic Peptide 814 H Albumin 05/21/24 05/21/24 05/21/24 05:19 05:25 07:51 WBC 8.2 RBC 2.92 L D Hgb 8.6 L D Hct 26.4 L D MCV 90.4 MCH 29.5 MCHC 32.6 RDW 15.8 Plt Count 322 MPV 10.1 Immature Gran % (Auto) 0.4 Neut % (Auto) 71.3 Lymph % (Auto) 13.9 L [place] % (Auto) 12.5 H Eos % (Auto) 1.5 Baso % (Auto) 0.4 Lymph # (Auto) 1.1 L [place] # (Auto) 1.0 Eos # (Auto) 0.1 Baso # (Auto) 0.0 Abs Immat Gran (auto) 0.03 Absolute Neuts (auto) 5.8 Absolute Nucleated RBC 0.000 Nucleated RBC % (auto) 0.0 VBG pH 7.38 VBG pCO2 54 VBG pO2 47 VBG HCO3 33 H VBG O2 Saturation 78.0 VBG Base Excess 7.0 Sodium 135 Potassium 4.6 D Chloride 97 Carbon Dioxide 27 Anion Gap 16 BUN 16 Creatinine 1.70 H Estim Creat Clear Calc 21.2 Estimated GFR 29 POC Glucose 151 H Random Glucose 154 H Calcium 9.1 Phosphorus 3.2 Magnesium 2.1 Troponin I High Sens B-Natriuretic Peptide Albumin 4.0 05/21/24 11:48 WBC RBC Hgb Hct MCV MCH MCHC RDW Plt Count MPV Immature Gran % (Auto) Neut % (Auto) Lymph % (Auto) [place] % (Auto) Eos % (Auto) Baso % (Auto) Lymph # (Auto) [place] # (Auto) Eos # (Auto) Baso # (Auto) Abs Immat Gran (auto) Absolute Neuts (auto) Absolute Nucleated RBC Nucleated RBC % (auto) VBG pH VBG pCO2 VBG pO2 VBG HCO3 VBG O2 Saturation VBG Base Excess Sodium Potassium Chloride Carbon Dioxide Anion Gap BUN Creatinine Estim Creat Clear Calc Estimated GFR POC Glucose 167 H Random Glucose Calcium Phosphorus Magnesium Troponin I High Sens B-Natriuretic Peptide Albumin Imaging Radiologist's impression: Impressions Chest X-Ray 05/21/24 00:35 IMPRESSION: * Findings are suggestive of mild interstitial pulmonary edema with small bilateral pleural effusions and associated bibasilar atelectasis. * No focal pneumonia. Electronically signed by: Sophia Lazo MD 05/21/2024 07:49 AM [facility] [place] Progress Note: A&P Assessment and plan (1) Congestive heart failure: Status: Acute (2) PAF (paroxysmal atrial fibrillation): Status: Acute (3) Acute exacerbation of CHF (congestive heart failure): Status: Acute Plan 78-year-old female with congestive heart failure. She has left bundle-branch block and paroxysmal atrial fibrillation. She got readmitted with congestive heart failure and is currently in the ICU. She was on Lasix drip but creatinine is worse today and she is off diuretics currently. Blood pressure was elevated initially and she was on Cardene drip but apparently developed AFib with RVR with drop in blood pressure and was taken off the Cardene and was on Levophed drip. Currently she is off all pressors. Holding blood pressure but creatinine is worse today. Repeat labs in the afternoon to see how creatinine is trending. It could be related to relative hypoperfusion because her blood pressures were low yesterday at times in 70s systolic. Overall she is still appears to be hypervolemic and will eventually require diuretics. I will continue to hold the beta-hilda for now. Continue amiodarone 400 mg twice a day and anticoagulation. We will follow along with you. Thank you for allowing me to participate in the care of your patient. Please feel free to contact me if you have any questions. Time Spent With Patient Time: Total time managing care of this patient today ____ minutes. Progress Note: Quality Stroke Does the patient have a stroke diagnosis?: No Procedures Date of Service Date of Service: 05/21/24
[2024-05-21] MEDS: Albuterol/Iprat 2.5/0.5MG 3 ML AMPUL.NEB INHALE (14:39)
[2024-05-21 16:25] LABS: Glucose, Whole Blood 125 mg/dL (60-115)
--- NOTE | 2024-05-21 17:33 | PC.NURSE ---
shift evaluation p: alteration in respiratory i: per nursing care plan e: pt continues on parsons nasal cannula. titrated from 2-4L as needed to maintain O2 sats. pt reported increased tachypnea, fentanyl and duoneb given with good effect. p: alteration in cardiac funtion i: per nursing care plan e: blood pressure remained WNL throughout shift. sinus on tele w/ bundle branch block. p: alteration in integumentary i: per nursing care plan e: turned and repositioned as allowed by patient. foam dressing to coccyx for prevention.
[2024-05-21 17:49] LABS: Anion Gap 21 (12-20); Blood Urea Nitrogen 18 mg/dL (9-16); Calcium 9.2 mg/dL (8.4-10.2); Carbon Dioxide 19 mmol/L (22-29); Chloride 102 mmol/L (96-108); Estimated Glomerular Filt Rate 29; Glucose Random 133 mg/dL (60-115); Potassium 5.3 mmol/L (3.3-5.1); Sodium 137 mmol/L (135-145)
[2024-05-21 20:54] LABS: Glucose, Whole Blood 75 mg/dL (60-115)
[2024-05-21 21:23] LABS: Glucose, Whole Blood 106 mg/dL (60-115)
[2024-05-21] MEDS: Atorvastatin Calcium 40 MG TABLET PO (21:27)
[2024-05-21 23:29] LABS: Glucose, Whole Blood 110 mg/dL (60-115)
[2024-05-22] VITALS (36 sets, daily range): BP systolic 80–144; BP diastolic 36–83; PULSE 79–142; RESP 14–29; TEMP 36.2–36.9; O2SAT 90–99; BMI 22.0
[2024-05-22 00:15] LABS: Anion Gap 13 (12-20); Blood Urea Nitrogen 17 mg/dL (9-16); Calcium 9.1 mg/dL (8.4-10.2); Carbon Dioxide 30 mmol/L (22-29); Chloride 98 mmol/L (96-108); Creatinine Clr Calc Pharmacy 21.2; Estimated Glomerular Filt Rate 29; Glucose Random 113 mg/dL (60-115); Phosphorus 3.3 mg/dL (2.7-4.5); Potassium 4.5 mmol/L (3.3-5.1); Sodium 136 mmol/L (135-145)
[2024-05-22] MEDS: fentaNYL citrate/PF 100 MCG/2 ML VIAL 25 MCG IVPUSH ×2 (01:16→03:26)
--- NOTE | 2024-05-22 02:30 | PM.EVENT ---
Documented by User: Rain Hansen NP 05/22/24 02:34 Event Note Date of Service: 05/22/24 Event Note: Patient went into AFIB with RVR 140s to 150, Reports increase SOB, 02 requirements increasing, Hypotensive since rhythm change, no evidence of severe infection. Diuresing was held due to up trending creat. Will give 20 lasix Time Spent With Patient Time: Total time managing care of this patient today ____ minutes. Documented by User: Ollie Larson MD 05/22/24 09:14 Event Note Date of Service: 05/22/24
[2024-05-22] MEDS: Furosemide 20 MG/2 ML VIAL IVPUSH (02:39)
[2024-05-22 02:52] LABS: Glucose, Whole Blood 95 mg/dL (60-115)
[2024-05-22] MEDS: Digoxin 0.5 MG/2 ML AMPUL 0.25 MG IVPUSH (04:15)
[2024-05-22 05:16] LABS: VBG Base Excess 5.8 mmol/L; VBG HCO3 31 mmol/L (22-26); VBG pCO2 48 mmHg; VBG pH 7.41 (7.32-7.43); VBG pO2 56 mmHg
[2024-05-22 05:24] LABS: MANUAL DIFF FLAG NO
[2024-05-22] MEDS: Omeprazole 40 MG CAPSULE.DR PO (05:24)
[2024-05-22] MEDS: Metoprolol Tartrate 5 MG/5 ML VIAL IVPUSH (05:24)
[2024-05-22 05:27] LABS: Basophils Percent Auto 0.3 % (0-2); Eosinophils Absolute Auto 0.2 X10*3/uL (0.0-0.4); Eosinophils Percent Auto 1.5 % (0-4); Hematocrit 27.2 % (37.0-47.0); Hemoglobin 8.7 g/dl (12.0-16.0); Imm Gran Abs Auto 0.05 X10*3/uL (0.00-0.03); Imm Gran Pct Auto 0.5 % (0.0-0.4); Lymphocytes Absolute Auto 1.2 X10*3/uL (1.2-4.9); Lymphocytes Percent Auto 10.9 % (20-40); Mean Corpuscular Volume 90.7 fL (80.0-98.0); Mean Platelet Volume 10.3 fL (9.4-12.3); Monocytes Absolute Auto 1.5 X10*3/uL (0.1-1.2); Monocytes Percent Auto 13.7 % (2-11); Neutrophils Absolute Auto 7.9 x10*3/uL (2.0-8.3); Neutrophils Percent Auto 73.1 % (45-73); Platelet Count 322 X10*3/uL (160-400); Red Cell Distribution Width 15.9 % (11.0-16.0); White Blood Count 10.8 X10*3/uL (4.8-10.8)
[2024-05-22 05:46] LABS: Alanine Aminotransferase 28 U/L (0-31); Albumin Level 3.7 g/dL (3.5-5.0); Alkaline Phosphatase 98 U/L (39-117); Anion Gap 16 (12-20); Aspartate Amino Transferase 40 U/L (5-31); Bilirubin Total 0.5 mg/dL (0.0-1.0); Blood Urea Nitrogen 18 mg/dL (9-16); Calcium 9.1 mg/dL (8.4-10.2); Carbon Dioxide 26 mmol/L (22-29); Chloride 98 mmol/L (96-108); Creatinine Clr Calc Pharmacy 21.4; Estimated Glomerular Filt Rate 30; Glucose Random 147 mg/dL (60-115); Magnesium 1.9 mg/dL (1.6-2.6); Phosphorus 3.2 mg/dL (2.7-4.5); Potassium 4.5 mmol/L (3.3-5.1); Sodium 135 mmol/L (135-145); Total Protein 6.1 g/dL (6.5-8.0)
[2024-05-22 05:58] LABS: Venous Blood Gas Refer to POC result
[2024-05-22] MEDS: Albuterol/Iprat 2.5/0.5MG 3 ML AMPUL.NEB INHALE (07:36)
[2024-05-22 07:40] LABS: Glucose, Whole Blood 128 mg/dL (60-115)
[2024-05-22] MEDS: Amiodarone HCL 200 MG TABLET 400 MG PO ×2 (08:37→19:50)
[2024-05-22] MEDS: risperiDONE 0.5 MG TABLET PO ×2 (08:37→19:50)
[2024-05-22] MEDS: Aspirin Enteric Coated 81 MG TABLET.DR PO (08:37)
[2024-05-22] MEDS: Cholecalciferol (Vitamin D3) 25 MCG TABLET PO (08:37)
[2024-05-22] MEDS: 0.9 % Sodium Chloride Flush 3 ML SYRINGE IVFLUSH (08:38)
--- NOTE | 2024-05-22 09:43 | P.PNCC_ITS ---
Subjective Subjective Date of Service: 05/22/24 Interval History: 78-year-old lady with underlying COPD not on oxygen, severe systolic congestive heart failure, AFib, CKD, diabetes mellitus, CAD admitted 05/19/2024 with worsening dyspnea deemed to be secondary to exacerbation of underlying congestive failure and started on Lasix drip with slow improvement, requiring noninvasive positive pressure ventilatory support, thus transferred to intensive care unit. Evaluated by Cardiology service. Patient with paroxysmal AFib with RVR requiring loading with IV amiodarone and briefly pressor support, also with development of acute renal failure and oliguria. Overnight in and out of AFib, titrated off pressor support, renal function stabilizing, but still oliguric. Critical Care Time (minutes): 60 Physical Exam 2 Vital Signs: Vital Signs: Last Vital Signs Temp 98.0 F 05/22/24 03:53 Pulse 97 05/22/24 09:00 Resp 14 05/22/24 09:00 BP 137/52 L 05/22/24 09:00 Pulse Ox 97 05/22/24 09:00 O2 Del Method Nasal Cannula 05/22/24 09:00 O2 Flow Rate 3 05/22/24 09:00 FiO2 60 05/21/24 13:00 BMI result Body Mass Index 22.0 Const: General: no acute distress and alert Nutritional Appearance: not obese Orientation/consciousness: Other orientation findings ( oriented) HEENT: Head: Yes atraumatic Eyes: General: appearance normal, both eyes and all related structures S clerae: sclerae normal EOM: EOMs intact bilaterally Neck: Neck: Yes supple Lymphatic: no lymphadenopathy noted Resp: Effort & Inspection: normal respiratory effort and no use of accessory muscles Auscultation: crackles (Mild basilar) Cardio: Rate: regular rate Rhythm: regular rhythm Heart sounds: no gallops, no murmurs and no rubs Skin: General skin exam: other ( warm) Extrem: General: No clubbing, No cyanosis and Yes edema (1+ bilateral) Objective Data Labs 05/22/24 05:09 05/22/24 05:09 Labs: Laboratory Results - last 24 hr 05/21/24 05/21/24 05/21/24 11:48 15:58 16:20 WBC RBC Hgb Hct MCV MCH MCHC RDW Plt Count MPV Immature Gran % (Auto) Neut % (Auto) Lymph % (Auto) [place] % (Auto) Eos % (Auto) Baso % (Auto) Lymph # (Auto) [place] # (Auto) Eos # (Auto) Baso # (Auto) Abs Immat Gran (auto) Absolute Neuts (auto) Absolute Nucleated RBC Nucleated RBC % (auto) VBG pH VBG pCO2 VBG pO2 VBG HCO3 VBG O2 Saturation VBG Base Excess Sodium 137 Potassium 5.3 H Chloride 102 Carbon Dioxide 19 L Anion Gap 21 H BUN 18 H Creatinine 1.72 H Estim Creat Clear Calc 21.0 Estimated GFR 29 POC Glucose 167 H 125 H Random Glucose 133 H Calcium 9.2 Phosphorus Magnesium Total Bilirubin AST ALT Alkaline Phosphatase Total Protein Albumin 05/21/24 05/21/24 05/21/24 20:47 21:19 23:25 WBC RBC Hgb Hct MCV MCH MCHC RDW Plt Count MPV Immature Gran % (Auto) Neut % (Auto) Lymph % (Auto) [place] % (Auto) Eos % (Auto) Baso % (Auto) Lymph # (Auto) [place] # (Auto) Eos # (Auto) Baso # (Auto) Abs Immat Gran (auto) Absolute Neuts (auto) Absolute Nucleated RBC Nucleated RBC % (auto) VBG pH VBG pCO2 VBG pO2 VBG HCO3 VBG O2 Saturation VBG Base Excess Sodium Potassium Chloride Carbon Dioxide Anion Gap BUN Creatinine Estim Creat Clear Calc Estimated GFR POC Glucose 75 106 110 Random Glucose Calcium Phosphorus Magnesium Total Bilirubin AST ALT Alkaline Phosphatase Total Protein Albumin 05/21/24 05/22/24 05/22/24 23:32 02:45 05:04 WBC RBC Hgb Hct MCV MCH MCHC RDW Plt Count MPV Immature Gran % (Auto) Neut % (Auto) Lymph % (Auto) [place] % (Auto) Eos % (Auto) Baso % (Auto) Lymph # (Auto) [place] # (Auto) Eos # (Auto) Baso # (Auto) Abs Immat Gran (auto) Absolute Neuts (auto) Absolute Nucleated RBC Nucleated RBC % (auto) VBG pH 7.41 VBG pCO2 48 VBG pO2 56 VBG HCO3 31 H VBG O2 Saturation 88.0 VBG Base Excess 5.8 Sodium 136 Potassium 4.5 Chloride 98 Carbon Dioxide 30 H Anion Gap 13 BUN 17 H Creatinine 1.70 H Estim Creat Clear Calc 21.2 Estimated GFR 29 POC Glucose 95 Random Glucose 113 Calcium 9.1 Phosphorus 3.3 Magnesium 2.0 Total Bilirubin AST ALT Alkaline Phosphatase Total Protein Albumin 05/22/24 05/22/24 05:09 07:36 WBC 10.8 RBC 3.00 L Hgb 8.7 L Hct 27.2 L MCV 90.7 MCH 29.0 MCHC 32.0 RDW 15.9 Plt Count 322 MPV 10.3 Immature Gran % (Auto) 0.5 H Neut % (Auto) 73.1 H Lymph % (Auto) 10.9 L [place] % (Auto) 13.7 H Eos % (Auto) 1.5 Baso % (Auto) 0.3 Lymph # (Auto) 1.2 [place] # (Auto) 1.5 H Eos # (Auto) 0.2 Baso # (Auto) 0.0 Abs Immat Gran (auto) 0.05 H Absolute Neuts (auto) 7.9 Absolute Nucleated RBC 0.000 Nucleated RBC % (auto) 0.0 VBG pH VBG pCO2 VBG pO2 VBG HCO3 VBG O2 Saturation VBG Base Excess Sodium 135 Potassium 4.5 Chloride 98 Carbon Dioxide 26 Anion Gap 16 BUN 18 H Creatinine 1.68 H Estim Creat Clear Calc 21.4 Estimated GFR 30 POC Glucose 128 H Random Glucose 147 H Calcium 9.1 Phosphorus 3.2 Magnesium 1.9 Total Bilirubin 0.5 AST 40 H ALT 28 Alkaline Phosphatase 98 Total Protein 6.1 L Albumin 3.7 Microbiology Microbiology Results: Microbiology 05/19/24 00:23 Blood - Venous Blood Culture - Preliminary No growth after 48 hours. 05/18/24 23:47 Blood - Venous Blood Culture - Preliminary No growth after 48 hours. Progress Note: A&P Assessment and plan (1) Congestive heart failure: Status: Acute (2) CAD (coronary artery disease): Status: Acute (3) PAF (paroxysmal atrial fibrillation): Status: Acute (4) Acute hypoxic respiratory failure: Status: Acute (5) LAURO (acute kidney injury): Status: Acute Plan Assessment: 78-year-old lady admitted with dyspnea and hypoxia secondary to acute on chronic systolic congestive heart failure requiring CPAP support Plan: Neuro: No acute issues. Cardiac: Titrated off pressor support. Advanced systolic congestive heart failure with an acute exacerbation improving with diuresis. Cardiology service care appreciated. Beta-hilda held secondary to heart failure exacerbation. Underlying AFib requiring amiodarone loading, in and out of AFib overnight. Hypertensive urgency requiring Cardene drip, resolved. Pulmonary: Acute hypoxic respiratory failure secondary to exacerbation of underlying congestive heart failure initially requiring noninvasive positive pressure ventilatory support, now titrated down to nasal cannula. Renal: Acute renal failure with development of oliguria, likely secondary to acute congestive heart failure, stabilizing. Continue to monitor renal indices and urine output. Endo: No acute issues. GI: No acute issues. ID: No acute issues Heme/Onc: No acute issues. Psych: No acute issues. Miscellaneous: No acute issues. Prophylaxis: Apixaban Diet: Cardiac Quality Stroke Does the patient have a stroke diagnosis?: No VTE Prior VTE?: No VTE Risk Level:: Medical - moderate - high VTE Device Contraindication: Treatment Not Indicated VTE Drug Contraindication: N/A - Med Ordered
[2024-05-22 11:23] LABS: Glucose, Whole Blood 233 mg/dL (60-115)
[2024-05-22] MEDS: Insulin Lispro 100 UNIT/ML 3 ML VIAL SUBCUT (11:39)
--- NOTE | 2024-05-22 13:01 | PM.PNCARD ---
Subjective Subjective Date of Service: 05/22/24 Interval history: Seen examined at bedside. Short of breath with minimal activity. Also getting orthopnea. Physical Exam Vital Signs: Last Vital Signs Temp 97.1 F 05/22/24 11:07 Pulse 89 05/22/24 12:23 Resp 18 05/22/24 12:23 BP 114/50 L 05/22/24 12:23 Pulse Ox 96 05/22/24 12:23 O2 Del Method Nasal Cannula 05/22/24 12:23 O2 Flow Rate 2 05/22/24 12:23 FiO2 60 05/21/24 13:00 BMI result Body Mass Index 22.0 GENERAL APPEARANCE: In no acute distress. On supplemental oxygen. NECK: no carotid bruit, + jugular venous distention. SKIN: no suspicious lesions, warm and dry. Skin bruising. HEART: no murmurs, regular rate and rhythm. LUNGS: Crackles at bases. No wheezes. ABDOMEN: soft, nontender. EXTREMITIES: no edema. Objective Labs and Meds 05/22/24 05:09 05/22/24 05:09 Lab results: Laboratory Results - last 24 hr 05/21/24 05/21/24 05/21/24 15:58 16:20 20:47 WBC RBC Hgb Hct MCV MCH MCHC RDW Plt Count MPV Immature Gran % (Auto) Neut % (Auto) Lymph % (Auto) [facility] % (Auto) Eos % (Auto) Baso % (Auto) Lymph # (Auto) [facility] # (Auto) Eos # (Auto) Baso # (Auto) Abs Immat Gran (auto) Absolute Neuts (auto) Absolute Nucleated RBC Nucleated RBC % (auto) VBG pH VBG pCO2 VBG pO2 VBG HCO3 VBG O2 Saturation VBG Base Excess Sodium 137 Potassium 5.3 H Chloride 102 Carbon Dioxide 19 L Anion Gap 21 H BUN 18 H Creatinine 1.72 H Estim Creat Clear Calc 21.0 Estimated GFR 29 POC Glucose 125 H 75 Random Glucose 133 H Calcium 9.2 Phosphorus Magnesium Total Bilirubin AST ALT Alkaline Phosphatase Total Protein Albumin 05/21/24 05/21/24 05/21/24 21:19 23:25 23:32 WBC RBC Hgb Hct MCV MCH MCHC RDW Plt Count MPV Immature Gran % (Auto) Neut % (Auto) Lymph % (Auto) [facility] % (Auto) Eos % (Auto) Baso % (Auto) Lymph # (Auto) [facility] # (Auto) Eos # (Auto) Baso # (Auto) Abs Immat Gran (auto) Absolute Neuts (auto) Absolute Nucleated RBC Nucleated RBC % (auto) VBG pH VBG pCO2 VBG pO2 VBG HCO3 VBG O2 Saturation VBG Base Excess Sodium 136 Potassium 4.5 Chloride 98 Carbon Dioxide 30 H Anion Gap 13 BUN 17 H Creatinine 1.70 H Estim Creat Clear Calc 21.2 Estimated GFR 29 POC Glucose 106 110 Random Glucose 113 Calcium 9.1 Phosphorus 3.3 Magnesium 2.0 Total Bilirubin AST ALT Alkaline Phosphatase Total Protein Albumin 05/22/24 05/22/24 05/22/24 02:45 05:04 05:09 WBC 10.8 RBC 3.00 L Hgb 8.7 L Hct 27.2 L MCV 90.7 MCH 29.0 MCHC 32.0 RDW 15.9 Plt Count 322 MPV 10.3 Immature Gran % (Auto) 0.5 H Neut % (Auto) 73.1 H Lymph % (Auto) 10.9 L [facility] % (Auto) 13.7 H Eos % (Auto) 1.5 Baso % (Auto) 0.3 Lymph # (Auto) 1.2 [facility] # (Auto) 1.5 H Eos # (Auto) 0.2 Baso # (Auto) 0.0 Abs Immat Gran (auto) 0.05 H Absolute Neuts (auto) 7.9 Absolute Nucleated RBC 0.000 Nucleated RBC % (auto) 0.0 VBG pH 7.41 VBG pCO2 48 VBG pO2 56 VBG HCO3 31 H VBG O2 Saturation 88.0 VBG Base Excess 5.8 Sodium 135 Potassium 4.5 Chloride 98 Carbon Dioxide 26 Anion Gap 16 BUN 18 H Creatinine 1.68 H Estim Creat Clear Calc 21.4 Estimated GFR 30 POC Glucose 95 Random Glucose 147 H Calcium 9.1 Phosphorus 3.2 Magnesium 1.9 Total Bilirubin 0.5 AST 40 H ALT 28 Alkaline Phosphatase 98 Total Protein 6.1 L Albumin 3.7 05/22/24 05/22/24 07:36 11:20 WBC RBC Hgb Hct MCV MCH MCHC RDW Plt Count MPV Immature Gran % (Auto) Neut % (Auto) Lymph % (Auto) [facility] % (Auto) Eos % (Auto) Baso % (Auto) Lymph # (Auto) [facility] # (Auto) Eos # (Auto) Baso # (Auto) Abs Immat Gran (auto) Absolute Neuts (auto) Absolute Nucleated RBC Nucleated RBC % (auto) VBG pH VBG pCO2 VBG pO2 VBG HCO3 VBG O2 Saturation VBG Base Excess Sodium Potassium Chloride Carbon Dioxide Anion Gap BUN Creatinine Estim Creat Clear Calc Estimated GFR POC Glucose 128 H 233 H Random Glucose Calcium Phosphorus Magnesium Total Bilirubin AST ALT Alkaline Phosphatase Total Protein Albumin Progress Note: A&P Assessment and plan (1) LAURO (acute kidney injury): Status: Acute (2) Congestive heart failure: Status: Acute (3) PAF (paroxysmal atrial fibrillation): Status: Acute (4) Acute exacerbation of CHF (congestive heart failure): Status: Acute Plan [age] year female who recently got diagnosed with cardiomyopathy with [id number] LV dysfunction. She has left bundle-branch block and has been developing paroxysmal atrial fibrillation. Clearly when she develops AFib she does not tolerate it because while she was in the intensive care unit she developed atrial fibrillation and her blood pressure dropped significantly. She required Levophed for that. This led to some hypoperfusion and I think the kidney injury is not due to over diuresis and is mostly due to hypotension related with episode of atrial fibrillation. Continue amiodarone 400 mg twice a day for 10 days and then 200 mg daily. Would favor starting her on IV diuretics with 40 mg IV Lasix at least daily for now. Once volume status is improving we will add beta-hilda and currently would avoid beta-hilda. We will follow along with you. Thank you for allowing me to participate in the care of your patient. Please feel free to contact me if you have any questions. Time Spent With Patient Time: Total time managing care of this patient today ____ minutes. Progress Note: Quality Stroke Does the patient have a stroke diagnosis?: No Procedures Date of Service Date of Service: 05/22/24
[2024-05-22 16:38] LABS: Glucose, Whole Blood 61 mg/dL (60-115)
[2024-05-22 17:33] LABS: Glucose, Whole Blood 114 mg/dL (60-115)
[2024-05-22] MEDS: Apixaban 5 MG TABLET PO (19:50)
[2024-05-22] MEDS: Atorvastatin Calcium 40 MG TABLET PO (19:50)
[2024-05-22 21:00] LABS: Glucose, Whole Blood 155 mg/dL (60-115)
[2024-05-22] MEDS: Insulin Glargine,Hum.rec.anlog 100 UNIT/ML 10 ML VIAL SUBCUT (21:47)
[2024-05-22] MEDS: Metoprolol Tartrate 5 MG/5 ML VIAL 2.5 MG IVPUSH (21:50)
[2024-05-22 22:53] LABS: Glucose, Whole Blood 143 mg/dL (60-115)
[2024-05-23] VITALS (8 sets, daily range): BP systolic 112–156; BP diastolic 55–75; PULSE 90–130; RESP 18–20; TEMP 36–36.8; O2SAT 86–96
[2024-05-23] MEDS: Albuterol/Iprat 2.5/0.5MG 3 ML AMPUL.NEB INHALE (00:12)
[2024-05-23] MEDS: traZODone HCL 50 MG TABLET PO (00:45)
[2024-05-23] MEDS: LORazepam 0.5 MG TABLET PO ×2 (03:38→18:34)
[2024-05-23] MEDS: 0.9 % Sodium Chloride Flush 3 ML SYRINGE IVFLUSH ×2 (03:39→08:29)
--- NOTE | 2024-05-23 06:09 | PC.NURSE ---
Patient due to void at 02:00. Patient did not void. Bladder scanned for 230mls. Dr. Gardner notified and ordered to straight cath. Patient straight cathed for 250mls.
[2024-05-23] MEDS: Omeprazole 40 MG CAPSULE.DR PO (06:30)
[2024-05-23 06:34] LABS: Venous Blood Gas Refer to POC result
[2024-05-23 06:41] LABS: VBG Base Excess 8.4 mmol/L; VBG HCO3 31 mmol/L (22-26); VBG pCO2 37 mmHg; VBG pH 7.53 (7.32-7.43); VBG pO2 82 mmHg
[2024-05-23 06:42] LABS: MANUAL DIFF FLAG NO
[2024-05-23 07:00] LABS: Albumin Level 3.4 g/dL (3.5-5.0); Anion Gap 16 (12-20); Basophils Percent Auto 0.4 % (0-2); Blood Urea Nitrogen 21 mg/dL (9-16); Calcium 9.5 mg/dL (8.4-10.2); Carbon Dioxide 26 mmol/L (22-29); Chloride 98 mmol/L (96-108); Creatinine Clr Calc Pharmacy 21.1; Eosinophils Absolute Auto 0.1 X10*3/uL (0.0-0.4); Eosinophils Percent Auto 1.4 % (0-4); Estimated Glomerular Filt Rate 29; Glucose Random 112 mg/dL (60-115); Hematocrit 27.3 % (37.0-47.0); Hemoglobin 8.9 g/dl (12.0-16.0); Imm Gran Abs Auto 0.04 X10*3/uL (0.00-0.03); Imm Gran Pct Auto 0.4 % (0.0-0.4); Lymphocytes Absolute Auto 1.1 X10*3/uL (1.2-4.9); Lymphocytes Percent Auto 12.1 % (20-40); Magnesium 1.8 mg/dL (1.6-2.6); Mean Corpuscular HGB Conc 32.6 g/dl (31.0-35.0); Mean Corpuscular Hemoglobin 29.4 pg (27.0-33.0); Mean Corpuscular Volume 90.1 fL (80.0-98.0); Mean Platelet Volume 10.2 fL (9.4-12.3); Monocytes Percent Auto 10.7 % (2-11); Phosphorus 2.8 mg/dL (2.7-4.5); Platelet Count 333 X10*3/uL (160-400); Potassium 4.7 mmol/L (3.3-5.1); Red Blood Count 3.03 X10*6/uL (4.20-5.50); Red Cell Distribution Width 15.5 % (11.0-16.0); Sodium 135 mmol/L (135-145); White Blood Count 9.4 X10*3/uL (4.8-10.8)
[2024-05-23 07:51] LABS: Glucose, Whole Blood 94 mg/dL (60-115)
[2024-05-23] MEDS: Apixaban 5 MG TABLET PO ×2 (08:28→19:35)
[2024-05-23] MEDS: risperiDONE 0.5 MG TABLET PO ×2 (08:28→19:36)
[2024-05-23] MEDS: Aspirin Enteric Coated 81 MG TABLET.DR PO (08:28)
[2024-05-23] MEDS: Cholecalciferol (Vitamin D3) 25 MCG TABLET PO (08:29)
[2024-05-23] MEDS: amLODIPine Besylate 10 MG TABLET PO (08:29)
[2024-05-23] MEDS: Amiodarone HCL 200 MG TABLET 400 MG PO ×2 (08:29→19:35)
--- NOTE | 2024-05-23 11:06 | P.PNCA_ITS ---
Subjective Subjective Date of Service: 05/23/24 Principal diagnosis: Decompensated congestive heart failure, paroxysmal atrial fibrillation, dif Interval history: Patient still remain short of breath requiring oxygen. Remains in sinus rhythm. Variable blood pressure. No lightheadedness, syncope. Review of Systems Constitutional: Reports lethargy and Reports weakness Cardiovascular: Denies chest pain, Denies syncope, Denies rapid heart rate, Denies lightheadedness, Denies Loss of Consciousness, Reports dyspnea and Reports dyspnea on exertion Respiratory: Reports no additional respiratory complaints, Reports dyspnea and Reports dyspnea on exertion Genitourinary: Reports no additional female genitourinary complaints Denies syncope and Reports weakness Psychiatric: Reports no additional psychiatric complaints Physical Exam Vital Signs: Last Vital Signs Temp 97.4 F 05/23/24 08:00 Pulse 96 05/23/24 08:00 Resp 20 05/23/24 08:00 BP 156/70 H 05/23/24 08:00 Pulse Ox 94 05/23/24 08:00 O2 Del Method Nasal Cannula 05/23/24 08:00 O2 Flow Rate 2 05/23/24 08:00 FiO2 60 05/21/24 13:00 BMI result Body Mass Index 22.0 GENERAL APPEARANCE: In no acute distress. On supplemental oxygen. NECK: no carotid bruit, + jugular venous distention. SKIN: no suspicious lesions, warm and dry. Skin bruising. HEART: no murmurs, regular rate and rhythm. LUNGS: Crackles at bases. No wheezes. ABDOMEN: soft, nontender. EXTREMITIES: no edema. Objective Labs and Meds 05/23/24 06:27 05/23/24 06:27 Lab results: Laboratory Results - last 24 hr 05/22/24 05/22/24 05/22/24 11:20 16:35 17:29 WBC RBC Hgb Hct MCV MCH MCHC RDW Plt Count MPV Immature Gran % (Auto) Neut % (Auto) Lymph % (Auto) [place] % (Auto) Eos % (Auto) Baso % (Auto) Lymph # (Auto) [place] # (Auto) Eos # (Auto) Baso # (Auto) Abs Immat Gran (auto) Absolute Neuts (auto) Absolute Nucleated RBC Nucleated RBC % (auto) VBG pH VBG pCO2 VBG pO2 VBG HCO3 VBG O2 Saturation VBG Base Excess Sodium Potassium Chloride Carbon Dioxide Anion Gap BUN Creatinine Estim Creat Clear Calc Estimated GFR POC Glucose 233 H 61 114 Random Glucose Calcium Phosphorus Magnesium Albumin 05/22/24 05/22/24 05/23/24 20:56 22:49 06:27 WBC 9.4 RBC 3.03 L Hgb 8.9 L Hct 27.3 L MCV 90.1 MCH 29.4 MCHC 32.6 RDW 15.5 Plt Count 333 MPV 10.2 Immature Gran % (Auto) 0.4 Neut % (Auto) 75.0 H Lymph % (Auto) 12.1 L [place] % (Auto) 10.7 Eos % (Auto) 1.4 Baso % (Auto) 0.4 Lymph # (Auto) 1.1 L [place] # (Auto) 1.0 Eos # (Auto) 0.1 Baso # (Auto) 0.0 Abs Immat Gran (auto) 0.04 H Absolute Neuts (auto) 7.0 Absolute Nucleated RBC 0.000 Nucleated RBC % (auto) 0.0 VBG pH VBG pCO2 VBG pO2 VBG HCO3 VBG O2 Saturation VBG Base Excess Sodium 135 Potassium 4.7 Chloride 98 Carbon Dioxide 26 Anion Gap 16 BUN 21 H Creatinine 1.71 H Estim Creat Clear Calc 21.1 Estimated GFR 29 POC Glucose 155 H 143 H Random Glucose 112 Calcium 9.5 Phosphorus 2.8 Magnesium 1.8 Albumin 3.4 L 05/23/24 05/23/24 06:34 07:45 WBC RBC Hgb Hct MCV MCH MCHC RDW Plt Count MPV Immature Gran % (Auto) Neut % (Auto) Lymph % (Auto) [place] % (Auto) Eos % (Auto) Baso % (Auto) Lymph # (Auto) [place] # (Auto) Eos # (Auto) Baso # (Auto) Abs Immat Gran (auto) Absolute Neuts (auto) Absolute Nucleated RBC Nucleated RBC % (auto) VBG pH 7.53 H VBG pCO2 37 VBG pO2 82 VBG HCO3 31 H VBG O2 Saturation TNP VBG Base Excess 8.4 Sodium Potassium Chloride Carbon Dioxide Anion Gap BUN Creatinine Estim Creat Clear Calc Estimated GFR POC Glucose 94 Random Glucose Calcium Phosphorus Magnesium Albumin Progress Note: A&P Assessment and plan (1) Acute exacerbation of CHF (congestive heart failure): Status: Acute Assessment and Plan: Patient with acute congestive heart failure still appears to be in heart failure. Clinically has rales at basis. Could be related to atelectasis. I would start on Lasix drip as she is not responding to IV Lasix otherwise. Overall prognosis guarded and appears to have poor cardiac reserve with possibly underlying significant coronary artery disease with severely reduced LV ejection fraction. Labile blood pressure. There is high likelihood of renal artery stenosis, see below. I would avoid using angiotensin receptor blockers given high likelihood of renal artery stenosis and worsening renal function. I would switch her to vasodilators therapy with hydralazine and Isordil. Start on low- dose today and gradually down titrate amlodipine starting tomorrow. Can add Jardiance 10 mg to her regimen. Overall prognosis extremely limited and guarded. Continue supportive care. Continue rhythm control approach, see below. (2) Labile blood pressure: Status: Acute Assessment and Plan: Labile blood pressure highly suggestive of underlying significant renal artery stenosis. Suggest renal duplex to guide therapy. Not sure if she would be a candidate for renal artery stenting. Add guideline based medical therapy rather than amlodipine for management of her blood pressure. See above (3) PAF (paroxysmal atrial fibrillation): Status: Acute Assessment and Plan: Poorly tolerated atrial fibrillation hypotension suggestive of poor cardiac reserve. Continue rhythm control approach as best as possible. Continue amiodarone loading. Currently on oral anticoagulation Eliquis, continue the same. Continue full disclosure cardiac telemetry. Will continue to follow with you Time Spent With Patient Time: Total time managing care of this patient today ____ minutes. Progress Note: Quality Stroke Does the patient have a stroke diagnosis?: No Procedures Date of Service Date of Service: 05/23/24
[2024-05-23 11:35] LABS: Glucose, Whole Blood 223 mg/dL (60-115)
[2024-05-23] MEDS: Insulin Lispro 100 UNIT/ML 3 ML VIAL SUBCUT (11:57)
--- NOTE | 2024-05-23 12:34 | P.PNIM_ITS ---
Subjective Subjective Date of Service: 05/23/24 Interval History: acute hypoxemic respiratory failure/chf Review of Systems sob somewhat urine output low denies any chest pain. Physical Exam 2 Vital Signs: Vital Signs: Last Vital Signs Temp 98.0 F 05/23/24 11:37 Pulse 90 05/23/24 11:37 Resp 20 05/23/24 11:37 BP 155/72 H 05/23/24 11:37 Pulse Ox 96 05/23/24 11:37 O2 Del Method Nasal Cannula 05/23/24 11:37 O2 Flow Rate 2 05/23/24 11:37 FiO2 60 05/21/24 13:00 BMI result Body Mass Index 22.0 general: some sob ,on supplemental oxygen Neck supple cvs:RRR, S1-S2 heard chest:air entry diminshed ,has rales lower bases. Abdomen soft nontender, no guarding, no rigidity neuro: aox3 , nonfocal. Psych: Normal mood Objective Data Active Medications Acetaminophen (Acetaminophen 325 Mg Tablet) 650 mg PO Q6H PRN PRN Reason: Pain, Mild (Pain Scale 1-3), fever or headache Albuterol/Ipratropium (Albuterol/Iprat 2.5/0.5mg 3 Ml Ampul.Neb) 3 ml INHALE Q4H PRN PRN Reason: Wheezing Last Admin: 05/23/24 00:12 Dose: 3 ml Documented By: LEELA Amiodarone HCl (Amiodarone Hcl 200 Mg Tablet) 400 mg PO BID [facility] Last Admin: 05/23/24 08:29 Dose: 400 mg Documented By: IJEOMA Apixaban (Apixaban 5 Mg Tablet) 5 mg PO BID [facility] Last Admin: 05/23/24 08:28 Dose: 5 mg Documented By: IJEOMA Aspirin (Aspirin Enteric Coated 81 Mg Tablet.) 81 mg PO DAILY [facility] Last Admin: 05/23/24 08:28 Dose: 81 mg Documented By: IJEOMA Atorvastatin Calcium (Atorvastatin Calcium 40 Mg Tablet) 40 mg PO BEDTIME [facility] Last Admin: 05/22/24 19:50 Dose: 40 mg Documented By: CHANG Calcium Carbonate (Calcium Carbonate 750 Mg Tab.Chew) 750 mg PO Q4H PRN PRN Reason: Heartburn Glucose (Glucose Gel 15 Gm Gel..Gram.) 15 gm PO Q15M PRN; Protocol PRN Reason: per Hypoglycemia Standing Ord. Hydralazine HCl (Hydralazine Hcl 10 Mg Tablet) 10 mg PO BID [facility]; Protocol Dextrose (D10) 250 mls @ 750 mls/hr IV Q15M PRN; Protocol PRN Reason: per Hypoglycemia Standing Ord. Furosemide 200 mg/ Sodium (Chloride) 100 mls @ 2.5 mls/hr IVCONT .Q24H [facility] Insulin Glargine (Insulin Glargine,Hum.Rec.Anlog 100 Unit/Ml 10 Ml Vial) 5 unit SUBCUT BEDTIME [facility] Last Admin: 05/22/24 21:47 Dose: 5 unit Documented By: CHANG Comments: Given per MD Gardner Insulin Human Lispro (Insulin Lispro 100 Unit/Ml 3 Ml Vial) 0.1 - 10 unit SUBCUT QIDACHS [facility]; Protocol Last Admin: 05/23/24 11:57 Dose: 4 unit Documented By: ALFREDO Isosorbide Dinitrate (Isosorbide Dinitrate 5 Mg Tablet) 5 mg PO 0800,1300 [facility]; Protocol Magnesium Hydroxide (Milk Of Magnesia 30 Ml Oral.Susp) 30 ml PO DAILY PRN PRN Reason: Constipation Melatonin (Melatonin 3 Mg Tablet) 6 mg PO BEDTIME PRN PRN Reason: Insomnia Omeprazole (Omeprazole 40 Mg Capsule.Dr) 40 mg PO DAILY@0630 [facility] Last Admin: 05/23/24 06:30 Dose: 40 mg Documented By: STEWART Ondansetron HCl (Ondansetron Hcl 4 Mg/2 Ml Vial) 4 mg IVPUSH Q8H PRN PRN Reason: Nausea and Vomiting Last Admin: 05/20/24 06:18 Dose: 4 mg Documented By: BEATRIZ Risperidone (Risperidone 0.5 Mg Tablet) 0.5 mg PO BID [facility] Last Admin: 05/23/24 08:28 Dose: 0.5 mg Documented By: IJEOMA Sodium Chloride (0.9 % Sodium Chloride Flush 3 Ml Syringe) [facility] Last Admin: 05/23/24 08:29 Dose: 3 ml Documented By: IJEOAM Trazodone HCl (Trazodone Hcl 50 Mg Tablet) 50 mg PO BEDTIME PRN PRN Reason: Insomnia Last Admin: 05/23/24 00:45 Dose: 50 mg Documented By: STEWART Vitamin D (Cholecalciferol (Vitamin D3) 25 Mcg Tablet) 25 mcg PO DAILY [facility] Last Admin: 05/23/24 08:29 Dose: 25 mcg Documented By: IJEOMA Labs 05/23/24 06:27 05/23/24 06:27 Labs: Laboratory Results - last 24 hr 05/22/24 05/22/24 05/22/24 16:35 17:29 20:56 MCV MCH MCHC RDW Plt Count MPV Immature Gran % (Auto) Neut % (Auto) Lymph % (Auto) [place] % (Auto) Eos % (Auto) Baso % (Auto) Lymph # (Auto) [place] # (Auto) Eos # (Auto) Baso # (Auto) Abs Immat Gran (auto) Absolute Neuts (auto) Absolute Nucleated RBC Nucleated RBC % (auto) VBG pH VBG pCO2 VBG pO2 VBG HCO3 VBG O2 Saturation VBG Base Excess Anion Gap Estim Creat Clear Calc Estimated GFR POC Glucose 61 114 155 H Random Glucose Calcium Phosphorus Magnesium Albumin 05/22/24 05/23/24 05/23/24 22:49 06:27 06:34 MCV 90.1 MCH 29.4 MCHC 32.6 RDW 15.5 Plt Count 333 MPV 10.2 Immature Gran % (Auto) 0.4 Neut % (Auto) 75.0 H Lymph % (Auto) 12.1 L [place] % (Auto) 10.7 Eos % (Auto) 1.4 Baso % (Auto) 0.4 Lymph # (Auto) 1.1 L [place] # (Auto) 1.0 Eos # (Auto) 0.1 Baso # (Auto) 0.0 Abs Immat Gran (auto) 0.04 H Absolute Neuts (auto) 7.0 Absolute Nucleated RBC 0.000 Nucleated RBC % (auto) 0.0 VBG pH 7.53 H VBG pCO2 37 VBG pO2 82 VBG HCO3 31 H VBG O2 Saturation TNP VBG Base Excess 8.4 Anion Gap 16 Estim Creat Clear Calc 21.1 Estimated GFR 29 POC Glucose 143 H Random Glucose 112 Calcium 9.5 Phosphorus 2.8 Magnesium 1.8 Albumin 3.4 L 05/23/24 05/23/24 07:45 11:25 MCV MCH MCHC RDW Plt Count MPV Immature Gran % (Auto) Neut % (Auto) Lymph % (Auto) [place] % (Auto) Eos % (Auto) Baso % (Auto) Lymph # (Auto) [place] # (Auto) Eos # (Auto) Baso # (Auto) Abs Immat Gran (auto) Absolute Neuts (auto) Absolute Nucleated RBC Nucleated RBC % (auto) VBG pH VBG pCO2 VBG pO2 VBG HCO3 VBG O2 Saturation VBG Base Excess Anion Gap Estim Creat Clear Calc Estimated GFR POC Glucose 94 223 H Random Glucose Calcium Phosphorus Magnesium Albumin Assessment and Plan (1) Acute exacerbation of CHF (congestive heart failure): Status: Acute Plan 78-year-old female with pertinent history of COPD not on home oxygen, insulin- dependent diabetes mellitus, CKD stage 3, PAD, mood disorder, gastroesophageal reflux disease, coronary artery disease, hypertension, paroxysmal atrial fibrillation on anticoagulation who presents to the emergency department for evaluation of dyspnea. Acute hypoxic respiratory failure due to acute on chronic congestive heart failure with reduced ejection fraction with copd (not on oxygen at home),severe systolic HF,ckd ,afib- transferred to ICU-worsening dyspnea deemed to be secondary to exacerbation of underlying congestive failure and started on Lasix drip with slow improvement, requiring noninvasive positive pressure ventilatory support, inaddition patien afib with rvr with IV amiodarone and briefly pressor support, also with development of acute renal failure and oliguria. plan: oligouric Strict I's and O's. daily weights Recent echo: 05/11/2024 with ejection fraction 25-30% and [id number] MR. discussed with cardiology started on iv lasix drip, isosorbide dinitrate, beta-hilda and hydralazine. Paroxysmal atrial fibrillation: On amiodarone loading and Eliquis. possible ckd -?stage unclear (likely stage 3) cr seems 1.6-1.7 added renal dupplex due to flactuating bp. also patient is oligouric/ckd/chf nephrology eval Insulin-dependent diabetes mellitus : fs flactuating fs with sliding scale coverage . COPD: Continue home inhalers Hypertension: Continue metoprolol, hydralazine and isosorbide CAD/CAD: Continue aspirin and statin Gastroesophageal reflux disease: On PPI Tobacco use disorder: Declines NRT. Counseled regarding cessation Mood disorder: On risperidone, trazodone and donepezil. Ongoing hospitlisation need : Acute hypoxic respiratory failure due to acute on chronic congestive heart failure with reduced ejection fraction with copd-need oxygen ,lasix drip ,renal function/electrolytes monitering Quality Stroke Does the patient have a stroke diagnosis?: No VTE Prior VTE?: No VTE Risk Level:: Medical - moderate - high VTE Device Contraindication: Treatment Not Indicated VTE Drug Contraindication: N/A - Med Ordered
[2024-05-23] MEDS: Isosorbide Dinitrate 5 MG TABLET PO (12:39)
[2024-05-23] MEDS: Furosemide 200 MG in 0.9 % Sodium Chloride 80 ML IVCONT (12:40)
--- NOTE | 2024-05-23 13:45 | PM.CNNEP ---
History of Present Illness Reason for Consult Consult date: 05/23/24 Chief Complaint Chief complaint: Dyspnea History of Present Illness Narrative: 78 y/o female with baseline CKD3, COPD, DMII, PAD, mood disorder, GERD, CAD, HTN, paroxysmal afib on anticoagulation presented on 05/19 with dyspnea of note, recently discharged from hospital on 05/17 for acute CHF and developed afib with RVR while in hospital pt admitted to ICU 05/19-05/22 for acute respiratory failure requiring intubation, vasopressor support nephrology consulted for LAURO on CKD pt UOP 05/22 245, today 505/24 hours receiving diuresis, currently on lasix drop at 5mg/hr started today she reports she feels short of breath states she feels very anxious, particularly about her breathing and shortness of breath denies difficulty with urination, dysuria, flank pain denies chest pain, dizziness denies abdominal pain, nausea/vomiting denies other concerns/symptoms Review of Systems Constitutional: Reports fatigue and Denies headache(s) Denies dizziness and Denies headache(s) Cardiovascular: Denies chest pain, Denies leg edema, Denies lightheadedness, Reports dyspnea, Reports dyspnea on exertion and Reports orthopnea Respiratory: Reports dyspnea and Reports dyspnea on exertion Gastrointestinal: Denies abdominal pain, Denies diarrhea, Denies nausea and Denies vomiting Genitourinary: Denies hematuria, Denies difficulty voiding, Denies dysuria, Denies flank pain and Denies urinary incontinence Musculoskeletal: Denies arthralgias and Denies muscle cramps Skin/Breast: Denies rash Denies dizziness and Denies headache(s) Psychiatric: Reports anxiety Endocrine: Reports fatigue PMFSH Past Medical History Medical History CKD (chronic kidney disease) stage 3, GFR 30-59 ml/min PAD (peripheral artery disease) Diabetic ketoacidosis Major depressive disorder, recurrent, moderate Adjustment disorder CAD (coronary artery disease) GERD (gastroesophageal reflux disease) HTN (hypertension) Carotid artery occlusion Diabetes Hiatal hernia GERD (gastroesophageal reflux disease) Family History Family History Father No problems noted. Mother No problems noted. Surgical History Surgical History History of esophagogastroduodenoscopy (EGD) Social History Social History Household Members: None Housing: Unknown / Unable to assess Do you presently have visiting nurse or other home services: Yes Alcohol intake: never Comment: patient refuses to have person standby when using bathroom Patient Tobacco Use Status: Former Tobacco user Tobacco use type: Cigarette Cigarette Packs Per Day: 1.5 Cigarettes Per Day: 30.0 Years Smoked: 40 Second Hand Smoke Exposure: No Substance Use Type: Marijuana Advance Directives Date on File: 01/14/23 service: No Current occupational status: retired Sexual orientation: Straight/Heterosexual Meds Allergies Allergy/AdvReac Type Severity Reaction Status Date / Time silver Allergy Unknown SKIN TEARS Verified 05/18/24 23:52 [From TEGADERM AG MESH] TAPE,PAPER Allergy Mild Itching Uncoded 05/18/24 23:52 Active Medications: Current Medications Acetaminophen (Acetaminophen 325 Mg Tablet) 650 mg PO Q6H PRN PRN Reason: Pain, Mild (Pain Scale 1-3), fever or headache Albuterol/Ipratropium (Albuterol/Iprat 2.5/0.5mg 3 Ml Ampul.Neb) 3 ml INHALE Q4H PRN PRN Reason: Wheezing Last Admin: 05/23/24 00:12 Dose: 3 ml Amiodarone HCl (Amiodarone Hcl 200 Mg Tablet) 400 mg PO BID [facility] Last Admin: 05/23/24 08:29 Dose: 400 mg Apixaban (Apixaban 5 Mg Tablet) 5 mg PO BID [facility] Last Admin: 05/23/24 08:28 Dose: 5 mg Aspirin (Aspirin Enteric Coated 81 Mg Tablet.Dr) 81 mg PO DAILY [facility] Last Admin: 05/23/24 08:28 Dose: 81 mg Atorvastatin Calcium (Atorvastatin Calcium 40 Mg Tablet) 40 mg PO BEDTIME [facility] Last Admin: 05/22/24 19:50 Dose: 40 mg Calcium Carbonate (Calcium Carbonate 750 Mg Tab.Chew) 750 mg PO Q4H PRN PRN Reason: Heartburn Glucose (Glucose Gel 15 Gm Gel..Gram.) 15 gm PO Q15M PRN; Protocol PRN Reason: per Hypoglycemia Standing Ord. Hydralazine HCl (Hydralazine Hcl 10 Mg Tablet) 10 mg PO BID [facility]; Protocol Dextrose (D10) 250 mls @ 750 mls/hr IV Q15M PRN; Protocol PRN Reason: per Hypoglycemia Standing Ord. Furosemide 200 mg/ Sodium (Chloride) 100 mls @ 2.5 mls/hr IVCONT .Q24H [facility] Last Admin: 05/23/24 12:40 Dose: 5 mg/hr, 2.5 mls/hr Insulin Glargine (Insulin Glargine,Hum.Rec.Anlog 100 Unit/Ml 10 Ml Vial) 5 unit SUBCUT BEDTIME [facility] Last Admin: 05/22/24 21:47 Dose: 5 unit Insulin Human Lispro (Insulin Lispro 100 Unit/Ml 3 Ml Vial) 0.1 - 10 unit SUBCUT QIDACHS [facility]; Protocol Last Admin: 05/23/24 11:57 Dose: 4 unit Isosorbide Dinitrate (Isosorbide Dinitrate 5 Mg Tablet) 5 mg PO 0800,1300 [facility]; Protocol Last Admin: 05/23/24 12:39 Dose: 5 mg Magnesium Hydroxide (Milk Of Magnesia 30 Ml Oral.Susp) 30 ml PO DAILY PRN PRN Reason: Constipation Melatonin (Melatonin 3 Mg Tablet) 6 mg PO BEDTIME PRN PRN Reason: Insomnia Omeprazole (Omeprazole 40 Mg Capsule.Dr) 40 mg PO DAILY@0630 [facility] Last Admin: 05/23/24 06:30 Dose: 40 mg Ondansetron HCl (Ondansetron Hcl 4 Mg/2 Ml Vial) 4 mg IVPUSH Q8H PRN PRN Reason: Nausea and Vomiting Last Admin: 05/20/24 06:18 Dose: 4 mg Risperidone (Risperidone 0.5 Mg Tablet) 0.5 mg PO BID [facility] Last Admin: 05/23/24 08:28 Dose: 0.5 mg Sodium Chloride (0.9 % Sodium Chloride Flush 3 Ml Syringe) 3 ml IVFLUSH QSHIFT [facility] Last Admin: 05/23/24 08:29 Dose: 3 ml Trazodone HCl (Trazodone Hcl 50 Mg Tablet) 50 mg PO BEDTIME PRN PRN Reason: Insomnia Last Admin: 05/23/24 00:45 Dose: 50 mg Vitamin D (Cholecalciferol (Vitamin D3) 25 Mcg Tablet) 25 mcg PO DAILY [facility] Last Admin: 05/23/24 08:29 Dose: 25 mcg Home Medications ?Medication ?Instructions ?Recorded ?Confirmed ?Last Taken ?Type dapagliflozin propanediol 5 mg 5 mg PO DAILY 07/31/23 05/19/24 05/18/24 History tablet (Farxiga) fluticasone furoate 100 1 ea inhalation DAILY 04/16/24 05/19/24 05/18/24 History mcg-vilanterol 25 mcg/dose inhalation powder (Breo Ellipta) insulin glargine 100 unit/mL 12 unit subcut BEDTIME 04/16/24 05/19/24 05/09/24 History subcutaneous solution (Lantus U-100 Insulin) Physical Exam Vital Signs: Last Vital Signs Temp 98.0 F 05/23/24 11:37 Pulse 90 05/23/24 11:37 Resp 20 05/23/24 11:37 BP 155/72 H 05/23/24 11:37 Pulse Ox 96 05/23/24 11:37 O2 Del Method Nasal Cannula 05/23/24 11:37 O2 Flow Rate 2 05/23/24 11:37 FiO2 60 05/21/24 13:00 BMI result Body Mass Index 22.0 Const General: alert, awake and anxious Neck Neck: Yes JVD Cardio Jugular venous distension: JVD Rate: regular rate Rhythm: abnormal rhythm Heart sounds: S1 normal heart sound present and S2 normal heart sound present GI Palpation (GI): Soft to palpation and nontender General: Yes no CVA tenderness Back/Spine/Pelvis Back: no CVA tenderness Skin Lesions: no lesions Rashes: no rashes Extrem General: No edema Results Lab Results 05/23/24 06:27 05/23/24 06:27 Lab results: Chemistry 05/20/24 05/21/24 05/21/24 20:19 00:41 05:25 Sodium 134 L 136 135 Potassium 3.7 3.6 4.6 D Carbon Dioxide 26 29 27 BUN 16 16 16 Creatinine 1.62 H 1.67 H 1.70 H Calcium 8.8 D 8.9 9.1 Phosphorus 3.3 3.0 3.2 05/21/24 05/21/24 05/22/24 15:58 23:32 05:09 Sodium 137 136 135 Potassium 5.3 H 4.5 4.5 Carbon Dioxide 19 L 30 H 26 BUN 18 H 17 H 18 H Creatinine 1.72 H 1.70 H 1.68 H Calcium 9.2 9.1 9.1 Phosphorus 3.3 3.2 05/23/24 06:27 Sodium 135 Potassium 4.7 Carbon Dioxide 26 BUN 21 H Creatinine 1.71 H Calcium 9.5 Phosphorus 2.8 Hematology 05/21/24 05/22/24 05/23/24 05:25 05:09 06:27 WBC 8.2 10.8 9.4 Hgb 8.6 L D 8.7 L 8.9 L Plt Count [phone] Assessment and Plan (1) LAURO (acute kidney injury): Status: Acute (2) PAF (paroxysmal atrial fibrillation): Status: Acute (3) CKD (chronic kidney disease) stage 3, GFR 30-59 ml/min: Qualifiers: Chronic kidney disease stage 3 subtype: stage 3a (GFR 45-59) Qualified Code(s): N18.31 - Chronic kidney disease, stage 3a Status: Chronic (4) Congestive heart failure: Qualifiers: Heart failure type: unspecified Heart failure chronicity: unspecified Qualified Code(s): I50.9 - Heart failure, unspecified Status: Acute Plan LAURO on CKD most likely ATN from hypoperfusion (pressors, afib with RVR while in ICU) patient reports dyspnea, recommend continuing diuretics if clinically fluid overloaded recommend daily electrolyte and renal function testing continue to monitor blood pressures and I&O closely continue to avoid nephrotoxins continue supportive care Discussed with Dr Marcano Procedures Date of Service Date of Service: 05/23/24
[2024-05-23 16:35] LABS: Glucose, Whole Blood 66 mg/dL (60-115)
--- NOTE | 2024-05-23 18:16 | ECG_ITS ---
Test Reason : ? afb Blood Pressure : / mmHG Vent. Rate : 130 BPM Atrial Rate : 000 BPM P-R Int : 000 ms QRS Dur : 144 ms QT Int : 296 ms P-R-T Axes : 000 -22 141 degrees QTc Int : 435 ms Atrial fibrillation with rapid ventricular response Left bundle branch block Abnormal ECG When compared with ECG of 20-MAY-2024 02:18, Atrial fibrillation has replaced Sinus rhythm ST elevation has replaced ST depression in Anterior leads T wave inversion now evident in Lateral leads Referred By: Maurice Bradley Electronically Signed By:URI VENTURA MD
[2024-05-23] MEDS: Metoprolol Tartrate 5 MG/5 ML VIAL IVPUSH (18:34)
[2024-05-23] MEDS: hydrALAZINE HCl 10 MG TABLET PO (19:35)
[2024-05-23] MEDS: Furosemide 20 MG/2 ML VIAL IVPUSH (19:36)
[2024-05-23] MEDS: Digoxin 0.5 MG/2 ML AMPUL 0.25 MG IVPUSH (19:36)
[2024-05-23] MEDS: Atorvastatin Calcium 40 MG TABLET PO (19:36)
[2024-05-23 20:29] LABS: Glucose, Whole Blood 110 mg/dL (60-115)
[2024-05-24] MEDS: Digoxin 0.5 MG/2 ML AMPUL 0.25 MG IVPUSH ×2 (02:09→08:24)
[2024-05-24 03:43] VITALS: BP 152/68; PULSE 100; RESP 18; TEMP 36.4; O2SAT 95
[2024-05-24] MEDS: ondansetron HCL 4 MG/2 ML VIAL IVPUSH (05:02)
[2024-05-24] MEDS: Omeprazole 40 MG CAPSULE.DR PO (05:05)
[2024-05-24 07:00] LABS: Glucose, Whole Blood 181 mg/dL (60-115)
[2024-05-24 07:26] VITALS: BP 151/67; PULSE 97; RESP 20; TEMP 36.6; O2SAT 95
[2024-05-24] MEDS: 0.9 % Sodium Chloride Flush 3 ML SYRINGE IVFLUSH ×2 (08:25→14:33)
[2024-05-24 08:54] LABS: Anion Gap 15 (12-20); Blood Urea Nitrogen 25 mg/dL (9-16); Calcium 9.6 mg/dL (8.4-10.2); Carbon Dioxide 27 mmol/L (22-29); Chloride 98 mmol/L (96-108); Creatinine Clr Calc Pharmacy 20.2; Estimated Glomerular Filt Rate 28; Glucose Random 175 mg/dL (60-115); Potassium 5.1 mmol/L (3.3-5.1); Sodium 135 mmol/L (135-145)
--- NOTE | 2024-05-24 09:05 | P.PNNP_ITS ---
Subjective Subjective Date of Service: 05/24/24 Principal diagnosis: Decompensated congestive heart failure, paroxysmal atrial fibrillation, dif Interval history: 78 y/o female with baseline CKD3, COPD, DMII, PAD, mood disorder, GERD, CAD, HTN, paroxysmal afib on anticoagulation presented on 05/19 with dyspnea of note, recently discharged from hospital on 05/17 for acute CHF and developed afib with RVR while in hospital pt admitted to ICU 05/19-05/22 for acute respiratory failure requiring intubation, vasopressor support nephrology consulted for LAURO on CKD creatinine 1.28 on 05/20 05/20 evening 1.62, has remained between 1.6-1.78 since that time 05.24 creatinine is 1.78 pt UOP 05/22 245, today 505/24 hours pt off lasix drip and started on bumex 1mg PO BID she reports she feels short of breath states she feels very anxious, particularly about her breathing and shortness of breath denies difficulty with urination, dysuria, flank pain denies chest pain, dizziness denies abdominal pain, nausea/vomiting denies other concerns/symptoms Physical Exam 2 Vital Signs: Vital Signs: Last Vital Signs Temp 97.8 F 05/24/24 07:26 Pulse 97 05/24/24 07:26 Resp 20 05/24/24 07:26 BP 151/67 H 05/24/24 07:26 Pulse Ox 95 05/24/24 07:26 O2 Del Method Nasal Cannula 05/24/24 07:26 O2 Flow Rate 3 05/24/24 07:26 FiO2 60 05/21/24 13:00 BMI result Body Mass Index 22.0 Const: General: alert, awake and anxious Neck: Neck: Yes JVD Resp: Effort & Inspection: normal respiratory effort Auscultation: clear to auscultation bilaterally Cardio: Jugular venous distension: JVD Rate: regular rate Rhythm: a bnormal rhythm Heart sounds: S1 normal heart sound present and S2 normal heart sound present GI: Palpation (GI): Soft to palpation and nontender : General: Yes no CVA tenderness Back/Spine/Pelvis: Back: no CVA tenderness Skin: Lesions: no lesions Rashes: no rashes Extrem: General: No edema Objective Data Labs 05/23/24 06:27 05/24/24 08:08 Labs: Laboratory Results - last 24 hr 05/23/24 05/23/24 05/23/24 11:25 16:31 20:26 Sodium Potassium Chloride Carbon Dioxide Anion Gap BUN Creatinine Estim Creat Clear Calc Estimated GFR POC Glucose 223 H 66 110 Random Glucose Calcium 05/24/24 05/24/24 05/24/24 06:50 08:08 08:58 Sodium 135 Potassium 5.1 Chloride 98 Carbon Dioxide 27 Anion Gap 15 BUN 25 H Creatinine 1.78 H Estim Creat Clear Calc 20.2 Estimated GFR 28 POC Glucose 181 H 157 H Random Glucose 175 H Calcium 9.6 05/24/24 10:46 Sodium Potassium Chloride Carbon Dioxide Anion Gap BUN Creatinine Estim Creat Clear Calc Estimated GFR POC Glucose 245 H Random Glucose Calcium Microbiology Microbiology Results: Microbiology 05/19/24 00:23 Blood - Venous Blood Culture - Final No growth after 5 days. 05/18/24 23:47 Blood - Venous Blood Culture - Final No growth after 5 days. Procedures Date of Service Date of Service: 05/24/24 Assessment & Plan Assessment and plan (1) CKD (chronic kidney disease) stage 3, GFR 30-59 ml/min: Status: Chronic (2) Acute exacerbation of CHF (congestive heart failure): Status: Acute Plan Patient with baseline 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 on diuretic therapy for CHF exacerbation LAURO on CKD most likely ATN from hypoperfusion (pressors, afib with RVR while in ICU) -- likely delayed recovering and anticipate some recovery with time recommend continuing diuretics as prescribed- bumex 1mg PO BID recommend daily electrolyte and renal function testing continue to monitor blood pressures and I&O closely continue to avoid nephrotoxins continue supportive care Discussed with Dr Marcano Time Spent With Patient Time: Total time managing care of this patient today ____ minutes. Progress Note: Quality Stroke Does the patient have a stroke diagnosis?: No
[2024-05-24 09:07] LABS: Glucose, Whole Blood 157 mg/dL (60-115)
[2024-05-24] MEDS: Aspirin Enteric Coated 81 MG TABLET.DR PO (09:10)
[2024-05-24] MEDS: Cholecalciferol (Vitamin D3) 25 MCG TABLET PO (09:11)
[2024-05-24] MEDS: hydrALAZINE HCl 10 MG TABLET PO ×2 (09:11→20:27)
[2024-05-24] MEDS: Apixaban 5 MG TABLET PO (09:11)
[2024-05-24] MEDS: Isosorbide Dinitrate 5 MG TABLET PO ×2 (09:11→14:33)
[2024-05-24] MEDS: Insulin Lispro 100 UNIT/ML 3 ML VIAL SUBCUT ×3 (09:11→20:29)
[2024-05-24] MEDS: Amiodarone HCL 200 MG TABLET 400 MG PO ×2 (09:11→20:28)
[2024-05-24] MEDS: risperiDONE 0.5 MG TABLET PO ×2 (09:11→20:25)
--- NOTE | 2024-05-24 09:18 | PM.PNCARD ---
Subjective Subjective Date of Service: 05/24/24 Principal diagnosis: Decompensated congestive heart failure, paroxysmal atrial fibrillation, dif Interval history: Patient had recurrent atrial fibrillation yesterday. Received IV digoxin. Converted overnight to sinus rhythm. Noted that her beta-blockers were withheld. This is probably due to decompensated congestive heart failure low blood pressure. Currently doing well with her breathing. Which has remained stable. Remains on oxygen. Feels tired. Review of Systems Constitutional: Reports fatigue and Reports weakness Cardiovascular: Denies chest pain, Reports rapid heart rate, Denies lightheadedness and Reports dyspnea on exertion Respiratory: Reports no additional respiratory complaints and Reports dyspnea on exertion Reports system reviewed and no additional complaints, except as documented and Reports weakness Endocrine: Reports fatigue Physical Exam Vital Signs: Last Vital Signs Temp 97.8 F 05/24/24 07:26 Pulse 97 05/24/24 07:26 Resp 20 05/24/24 07:26 BP 151/67 H 05/24/24 07:26 Pulse Ox 95 05/24/24 07:26 O2 Del Method Nasal Cannula 05/24/24 07:26 O2 Flow Rate 3 05/24/24 07:26 FiO2 60 05/21/24 13:00 BMI result Body Mass Index 22.0 GENERAL APPEARANCE: In no acute distress. On supplemental oxygen. NECK: no carotid bruit, - jugular venous distention. SKIN: no suspicious lesions, warm and dry. Skin bruising. HEART: no murmurs, regular rate and rhythm. LUNGS: CTA. No wheezes. ABDOMEN: soft, nontender. EXTREMITIES: no edema. Objective Labs and Meds 05/23/24 06:27 05/24/24 08:08 Lab results: Laboratory Results - last 24 hr 05/23/24 05/23/24 05/23/24 11:25 16:31 20:26 Sodium Potassium Chloride Carbon Dioxide Anion Gap BUN Creatinine Estim Creat Clear Calc Estimated GFR POC Glucose 223 H 66 110 Random Glucose Calcium 05/24/24 05/24/24 05/24/24 06:50 08:08 08:58 Sodium 135 Potassium 5.1 Chloride 98 Carbon Dioxide 27 Anion Gap 15 BUN 25 H Creatinine 1.78 H Estim Creat Clear Calc 20.2 Estimated GFR 28 POC Glucose 181 H 157 H Random Glucose 175 H Calcium 9.6 Imaging Radiologist's impression: Impressions Renal Ultrasound 11/18/24 17:31 IMPRESSION: 1. Right kidney is normal in appearance. Left kidney is small in size. 2. Right renal artery is patent with no evidence of renal artery stenosis. 3. Left renal artery was not imaged due to poor visualization. Criteria: NORMAL: Renal artery peak systolic velocities < 180 cm/s. Renal aortic ratio < 3.5 Normal renal size. < 60% STENOSIS: Renal artery peak systolic velocities > 180 cm/s. Renal aortic ratio < 3.5 Renal size <2 cm difference between sides. > 60% STENOSIS Renal artery peak systolic velocities > 180 cm/s. Renal aortic ratio > 3.5 Renal size >2 cm difference between sides. Aortic PSV > 140 cm/s with normal renal artery PSV made over estimate severity. Aortic PSV > 100 cm/s with normal renal artery PSV may underestimate severity. Electronically signed by: Td Campbell MD 05/23/2024 09:02 PM [facility] Progress Note: A&P Assessment and plan (1) Acute exacerbation of CHF (congestive heart failure): Status: Acute Assessment and Plan: Acute decompensated congestive heart failure with poorly tolerated atrial fibrillation severe LV systolic dysfunction with diffuse vascular disease with high likelihood underlying significant coronary artery disease. Overall multiple comorbidities including psychosocial issues, labile blood pressures, acute on chronic kidney disease, frailty, COPD, anemia, atrial fibrillation recurrent. Overall prognosis is guarded. Continue rhythm control approach. Clinically appears to be euvolemic can switch to p.o. Bumex 1 mg b.i.d.. Strict intake and output chart needs to be pursued. Continue manage COPD and continue oxygen supplementation therapy and considered oxygen desaturation study. Has had poor tolerance of neurohormonal modulation due to kidney disease and labile blood pressure. Continue to maximize hydralazine to 25 mg b.i.d. and continue Isordil for vasodilators therapy. (2) PAF (paroxysmal atrial fibrillation): Status: Acute Assessment and Plan: Recurrent atrial fibrillation, most likely due to withdrawal of beta-hilda therapy. Continue amiodarone loading. Resume metoprolol 25 mg q.6 hours. Closely monitor blood pressure. Again recurrence of atrial fibrillation will put her high risk for acute as well as chronic cardiovascular complication then would pursue rhythm control as much as possible. Reduce Eliquis to 2.5 mg b.i.d. given her elevated creatinine. Avoid stimulants. Will follow with you Time Spent With Patient Time: Total time managing care of this patient today ____ minutes. Progress Note: Quality Stroke Does the patient have a stroke diagnosis?: No Procedures Date of Service Date of Service: 05/24/24
[2024-05-24 10:55] LABS: Glucose, Whole Blood 245 mg/dL (60-115)
[2024-05-24 10:57] VITALS: BP 121/57; PULSE 103; RESP 18; TEMP 36.7; O2SAT 97
[2024-05-24] MEDS: Metoprolol Tartrate 25 MG TABLET PO ×3 (10:59→22:57)
[2024-05-24] MEDS: Bumetanide 1 MG TABLET PO ×2 (10:59→17:08)
--- NOTE | 2024-05-24 12:19 | HO.PM.IMPN ---
Subjective Subjective Date of Service: 05/24/24 Interval History: Feeling better this morning, complaining of less shortness of breath, denies chest pain, no lightheadedness, no dizziness. Review of Systems All other system reviewed and are negative. Physical Exam Vital Signs: Vital Signs: Last Vital Signs Temp 98.0 F 05/24/24 10:57 Pulse 103 H 05/24/24 10:57 Resp 18 05/24/24 10:57 BP 121/57 L 05/24/24 10:57 Pulse Ox 97 05/24/24 10:57 O2 Del Method Nasal Cannula 05/24/24 10:57 O2 Flow Rate 3 05/24/24 10:57 FiO2 60 05/21/24 13:00 BMI result Body Mass Index 22.0 Const: Other: Gen: Awake alert x3, in no acute distress HEENT: sclera anicteric, moist mucus membranes Neck: supple, no JVD Lungs: diminished, no crackles Heart: Regular Abd: soft, non-tender, non-distended, bowel sounds audible Ext: no edema Skin: warm/well-perfused Neuro: alert and oriented x3, no focal findings Psych: Appropriate affect Objective Data Active Medications Acetaminophen (Acetaminophen 325 Mg Tablet) 650 mg PO Q6H PRN PRN Reason: Pain, Mild (Pain Scale 1-3), fever or headache Albuterol/Ipratropium (Albuterol/Iprat 2.5/0.5mg 3 Ml Ampul.Neb) 3 ml INHALE Q4H PRN PRN Reason: Wheezing Last Admin: 05/23/24 00:12 Dose: 3 ml Documented By: LEELA Amiodarone HCl (Amiodarone Hcl 200 Mg Tablet) 400 mg PO BID [facility] Last Admin: 05/24/24 09:11 Dose: 400 mg Documented By: ALEJANDRO Apixaban (Apixaban 2.5 Mg Tablet) 2.5 mg PO BID [facility] Aspirin (Aspirin Enteric Coated 81 Mg Tablet.) 81 mg PO DAILY [facility] Last Admin: 05/24/24 09:10 Dose: 81 mg Documented By: ALEJANDRO Atorvastatin Calcium (Atorvastatin Calcium 40 Mg Tablet) 40 mg PO BEDTIME [facility] Last Admin: 05/23/24 19:36 Dose: 40 mg Documented By: COLBY Bumetanide (Bumetanide 1 Mg Tablet) 1 mg PO BID@0800,1700 [facility]; Protocol Last Admin: 05/24/24 10:59 Dose: 1 mg Documented By: ALEJANDRO Calcium Carbonate (Calcium Carbonate 750 Mg Tab.Chew) 750 mg PO Q4H PRN PRN Reason: Heartburn Glucose (Glucose Gel 15 Gm Gel..Gram.) 15 gm PO Q15M PRN; Protocol PRN Reason: per Hypoglycemia Standing Ord. Hydralazine HCl (Hydralazine Hcl 10 Mg Tablet) 10 mg PO BID [facility]; Protocol Last Admin: 05/24/24 09:11 Dose: 10 mg Documented By: ALEJANDRO Dextrose (D10) 250 mls @ 750 mls/hr IV Q15M PRN; Protocol PRN Reason: per Hypoglycemia Standing Ord. Insulin Glargine (Insulin Glargine,Hum.Rec.Anlog 100 Unit/Ml 10 Ml Vial) 5 unit SUBCUT BEDTIME [facility] Last Admin: 05/22/24 21:47 Dose: 5 unit Documented By: CHANG Comments: Given per MD Gardner Insulin Human Lispro (Insulin Lispro 100 Unit/Ml 3 Ml Vial) 0.1 - 10 unit SUBCUT QIDACHS [facility]; Protocol Last Admin: 05/24/24 09:11 Dose: 2 unit Documented By: ALEJANDRO Isosorbide Dinitrate (Isosorbide Dinitrate 5 Mg Tablet) 5 mg PO 0800,1300 [facility]; Protocol Last Admin: 05/24/24 09:11 Dose: 5 mg Documented By: ALEJANDRO Magnesium Hydroxide (Milk Of Magnesia 30 Ml Oral.Susp) 30 ml PO DAILY PRN PRN Reason: Constipation Melatonin (Melatonin 3 Mg Tablet) 6 mg PO BEDTIME PRN PRN Reason: Insomnia Metoprolol Tartrate (Metoprolol Tartrate 25 Mg Tablet) 25 mg PO Q6H [facility]; Protocol Last Admin: 05/24/24 10:59 Dose: 25 mg Documented By: ALEJANDRO Omeprazole (Omeprazole 40 Mg Capsule.Dr) 40 mg PO DAILY@0630 [facility] Last Admin: 05/24/24 05:05 Dose: 40 mg Documented By: ANTEFREN Ondansetron HCl (Ondansetron Hcl 4 Mg/2 Ml Vial) 4 mg IVPUSH Q8H PRN PRN Reason: Nausea and Vomiting Last Admin: 05/24/24 05:02 Dose: 4 mg Documented By: LUIS ANGEL Risperidone (Risperidone 0.5 Mg Tablet) 0.5 mg PO BID [facility] Last Admin: 05/24/24 09:11 Dose: 0.5 mg Documented By: ALEJANDRO Sodium Chloride (0.9 % Sodium Chloride Flush 3 Ml Syringe) 3 ml IVFLUSH QSHIFT [facility] Last Admin: 05/24/24 08:25 Dose: 3 ml Documented By: ALEJANDRO Trazodone HCl (Trazodone Hcl 50 Mg Tablet) 50 mg PO BEDTIME PRN PRN Reason: Insomnia Last Admin: 05/23/24 00:45 Dose: 50 mg Documented By: STEWART Vitamin D (Cholecalciferol (Vitamin D3) 25 Mcg Tablet) 25 mcg PO DAILY [facility] Last Admin: 05/24/24 09:11 Dose: 25 mcg Documented By: ALEJANDRO Labs 05/23/24 06:27 05/24/24 08:08 Labs: Laboratory Results - last 24 hr 05/23/24 05/23/24 05/24/24 16:31 20:26 06:50 Anion Gap Estim Creat Clear Calc Estimated GFR POC Glucose 66 110 181 H Random Glucose Calcium 05/24/24 05/24/24 05/24/24 08:08 08:58 10:46 Anion Gap 15 Estim Creat Clear Calc 20.2 Estimated GFR 28 POC Glucose 157 H 245 H Random Glucose 175 H Calcium 9.6 Microbiology Microbiology Results: Microbiology 05/19/24 00:23 Blood Culture - Final Blood - Venous No growth after 5 days. 05/18/24 23:47 Blood Culture - Final Blood - Venous No growth after 5 days. Assessment and Plan (1) Labile blood pressure: Status: Acute (2) LAURO (acute kidney injury): Status: Acute (3) Congestive heart failure: Status: Acute (4) PAF (paroxysmal atrial fibrillation): Status: Acute Plan 78-year-old lady with underlying COPD not on oxygen, severe systolic congestive heart failure, AFib, CKD, diabetes mellitus, CAD admitted 05/19/2024 with worsening dyspnea deemed to be secondary to exacerbation of underlying congestive failure and started on Lasix drip with slow improvement, requiring noninvasive positive pressure ventilatory support, thus transferred to intensive care unit. Evaluated by Cardiology service. Patient with paroxysmal AFib with RVR requiring loading with IV amiodarone and briefly pressor support, also with development of acute renal failure and oliguria, subsequently patient titrated off pressor support, renal function stabilized And patient transferred to [facility] on . Acute decompensated congestive heart failure with severe left ventricular systolic dysfunction/coronary disease/atrial fibrillation. Appears euvolemic/no chest pain/shortness of breath improved Case discussed with Cardiology will DC IV Lasix drip transitioned to by mouth Bumex 1 mg b.i.d. Will continue hydralazine 25 mg b.i.d., Isordil 5 mg b.i.d., not on JOSE inhibitor due to kidney disease Recent echocardiogram 05/11/24: Severely reduced LV ejection fraction of 25-30% with underlying regional wall motion abnormalities suggestive of ischemic cardiomyopathy , [id number] mitral regurg Paroxysmal atrial fibrillation with frequent episodes of rapid ventricular response recently diagnosed with AFib continue amiodarone loading dose and Eliquis Will place on metoprolol 25 mg q.6 hours previously was on metoprolol 200 mg b.i.d. and was discharged on Toprol-XL 200 mg daily Continue tele monitor Acute on chronic kidney disease stage 3 Creatinine trending down follow BMP while being diuresed Renal ultrasound showed normal right kidney, small size of left kidney, right renal artery is patent, left renal artery was not imaged due to poor visualization. COPD continue home inhalers no acute exacerbation Diabetes mellitus type 2, on insulin, Tradjenta, Farxiga , netglinide and metformin at home, continue Jardiance, Lantus Hypertension continue hydralazine, isosorbide and metoprolol PAD/CAD Continue aspirin/atorvastatin Tobacco use disorder counseling done mood disorder/dementia - continue donepezil, trazodone, risperidone and DC nortriptyline, since not on it at home VTE ppx - apixaban In my clinical judgment, the patient requires continued inpatient hospitalization for the following reasons: LAURO, recurrent AFib,chf. Quality Stroke Does the patient have a stroke diagnosis?: No VTE Prior VTE?: No VTE Risk Level:: Medical - moderate - high VTE Device Contraindication: Treatment Not Indicated VTE Drug Contraindication: N/A - Med Ordered
--- NOTE | 2024-05-24 14:28 | HO.WOUND ---
Wound Consult: Initial 78yr old? female admitted to [facility] on 05/19/24 - See progress notes and H&P for detailed history.? Wound consult placed for coccyx.? Patient agreeable to assessment and photo documentation.? Pawel reports tenderness to coccyx and sacral site. Sacrum and Coccyx Etiology: ?Stage 1 Pressure Injury ?Present on Admission Wound Bed: red pink intact nonblanchable and slow to kevin tissue Drainage / Odor: None Edges: ? irregular Niya wound: ? Intact No Induration, Fluctuance or Warmth noted Pain: tenderness reported Goals of Treatment: ? Off Load Pressure - protect from friction and moisture Recommendations: 1. Turn and Reposition every 2 hours and as needed for patient comfort.? Use pillows or wedges to support off loading positions. 2. Off Load all bony prominences with use of pillows and heel boots if needed.? Apply Preventative foams where needed. ? 3. Monitor for incontinence and moisture control, use barrier creams when needed for prevention and treatment. 4. Provide adequate and supplemental nutrition.? 5. Order low air loss mattress. 6. When applicable maintain blood glucose levels per Providers order. 7. Sacrum and Coccyx - Off Load Pressure Q 2 hr turns with pillows. Routine Cleansing. Apply skin prep and Sacral foam dressing. Peel back and assess Q shift change every 5 days and PRN. Re-consult wound care Nurse for wound deterioration or wound changes.
[2024-05-24 15:53] VITALS: BP 123/58; PULSE 78; RESP 18; TEMP 36.1; O2SAT 96
[2024-05-24 16:53] LABS: Glucose, Whole Blood 80 mg/dL (60-115)
[2024-05-24 19:19] VITALS: BP 143/68; PULSE 77; RESP 18; TEMP 36; O2SAT 97
[2024-05-24 19:28] LABS: Glucose, Whole Blood 196 mg/dL (60-115)
[2024-05-24] MEDS: Atorvastatin Calcium 40 MG TABLET PO (20:25)
[2024-05-24] MEDS: Apixaban 2.5 MG TABLET PO (20:29)
[2024-05-24] MEDS: Insulin Glargine,Hum.rec.anlog 100 UNIT/ML 10 ML VIAL 10 UNIT SUBCUT (20:31)
[2024-05-24 22:52] VITALS: BP 109/55; PULSE 71; RESP 19; TEMP 35.9; O2SAT 96
[2024-05-25 04:00] VITALS: BP 142/60; PULSE 73; RESP 18; TEMP 36.1; O2SAT 97
[2024-05-25] MEDS: Metoprolol Tartrate 25 MG TABLET PO ×4 (04:27→21:47)
[2024-05-25] MEDS: Omeprazole 40 MG CAPSULE.DR PO (06:23)
[2024-05-25 06:32] LABS: Hematocrit 27.7 % (37.0-47.0); Hemoglobin 8.8 g/dl (12.0-16.0); Mean Corpuscular HGB Conc 31.8 g/dl (31.0-35.0); Mean Corpuscular Volume 91.4 fL (80.0-98.0); Mean Platelet Volume 10.5 fL (9.4-12.3); Platelet Count 329 X10*3/uL (160-400); Red Blood Count 3.03 X10*6/uL (4.20-5.50); Red Cell Distribution Width 15.2 % (11.0-16.0); White Blood Count 9.2 X10*3/uL (4.8-10.8)
[2024-05-25 06:47] LABS: Anion Gap 14 (12-20); Blood Urea Nitrogen 26 mg/dL (9-16); Calcium 9.4 mg/dL (8.4-10.2); Carbon Dioxide 30 mmol/L (22-29); Chloride 96 mmol/L (96-108); Creatinine Clr Calc Pharmacy 17.3; Estimated Glomerular Filt Rate 23; Glucose Random 135 mg/dL (60-115); Potassium 4.9 mmol/L (3.3-5.1); Sodium 135 mmol/L (135-145)
[2024-05-25 07:06] LABS: Glucose, Whole Blood 141 mg/dL (60-115)
[2024-05-25 07:34] VITALS: BP 163/72; PULSE 67; RESP 15; TEMP 36.6; O2SAT 97
[2024-05-25] MEDS: Amiodarone HCL 200 MG TABLET 400 MG PO (08:07)
[2024-05-25] MEDS: Isosorbide Dinitrate 5 MG TABLET PO ×2 (08:07→13:06)
[2024-05-25] MEDS: risperiDONE 0.5 MG TABLET PO ×2 (08:07→21:47)
[2024-05-25] MEDS: Cholecalciferol (Vitamin D3) 25 MCG TABLET PO (08:08)
[2024-05-25] MEDS: Apixaban 2.5 MG TABLET PO ×2 (08:08→21:47)
[2024-05-25] MEDS: Aspirin Enteric Coated 81 MG TABLET.DR PO (08:08)
[2024-05-25] MEDS: hydrALAZINE HCl 10 MG TABLET PO ×2 (08:08→21:47)
[2024-05-25] MEDS: 0.9 % Sodium Chloride Flush 3 ML SYRINGE IVFLUSH ×3 (08:08→16:10)
--- NOTE | 2024-05-25 11:02 | P.PNNP_ITS ---
Subjective Subjective Date of Service: 05/25/24 Principal diagnosis: Decompensated congestive heart failure, paroxysmal atrial fibrillation, dif Interval history: 78 y/o female with baseline CKD3, COPD, DMII, PAD, mood disorder, GERD, CAD, HTN, paroxysmal afib on anticoagulation presented on 05/19 with dyspnea of note, recently discharged from hospital on 05/17 for acute CHF and developed afib with RVR while in hospital pt admitted to ICU 05/19-05/22 for acute respiratory failure requiring intubation, vasopressor support nephrology consulted for LAURO on CKD creatinine 1.28 on 05/20 05/20 evening 1.62, has remained between 1.6-1.78 since that time 05/24 creatinine 1.78 05/25 creatinine 2.08 pt UOP 700 /24 hours pt off lasix drip and started on bumex 1mg PO BID- held this a.m. due to rising creatinine she reports she feels short of breath states she feels very anxious, particularly about her breathing and shortness of breath denies difficulty with urination, dysuria, flank pain denies chest pain, dizziness denies abdominal pain, nausea/vomiting denies other concerns/symptoms Physical Exam 2 Vital Signs: Vital Signs: Last Vital Signs Temp 97.8 F 05/25/24 07:34 Pulse 67 05/25/24 07:34 Resp 15 05/25/24 07:34 BP 163/72 H 05/25/24 07:34 Pulse Ox 97 05/25/24 07:34 O2 Del Method Nasal Cannula 05/25/24 07:34 O2 Flow Rate 2 05/25/24 07:34 FiO2 60 05/21/24 13:00 BMI result Body Mass Index 22.0 Const: General: alert, awake and anxious Neck: Neck: Yes JVD Resp: Effort & Inspection: normal respiratory effort Auscultation: clear to auscultation bilaterally Cardio: Jugular venous distension: JVD Rate: regular rate Rhythm: a bnormal rhythm Heart sounds: S1 normal heart sound present and S2 normal heart sound present GI: Palpation (GI): Soft to palpation and nontender : General: Yes no CVA tenderness Back/Spine/Pelvis: Back: no CVA tenderness Skin: Lesions: no lesions Rashes: no rashes Extrem: General: No edema Objective Data Labs 05/25/24 06:18 11/20/24 06:18 Labs: Laboratory Results - last 24 hr 05/24/24 05/24/24 05/25/24 16:50 19:24 06:18 WBC 9.2 RBC 3.03 L Hgb 8.8 L Hct 27.7 L MCV 91.4 MCH 29.0 MCHC 31.8 RDW 15.2 Plt Count 329 MPV 10.5 Absolute Nucleated RBC 0.000 Nucleated RBC % (auto) 0.0 Sodium 135 Potassium 4.9 Chloride 96 Carbon Dioxide 30 H Anion Gap 14 BUN 26 H Creatinine 2.08 H Estim Creat Clear Calc 17.3 Estimated GFR 23 POC Glucose 80 196 H Random Glucose 135 H Calcium 9.4 05/25/24 06:53 WBC RBC Hgb Hct MCV MCH MCHC RDW Plt Count MPV Absolute Nucleated RBC Nucleated RBC % (auto) Sodium Potassium Chloride Carbon Dioxide Anion Gap BUN Creatinine Estim Creat Clear Calc Estimated GFR POC Glucose 141 H Random Glucose Calcium Microbiology Microbiology Results: Microbiology 05/19/24 00:23 Blood - Venous Blood Culture - Final No growth after 5 days. 05/18/24 23:47 Blood - Venous Blood Culture - Final No growth after 5 days. Procedures Date of Service Date of Service: 05/25/24 Assessment & Plan Assessment and plan (1) CKD (chronic kidney disease) stage 3, GFR 30-59 ml/min: Status: Chronic (2) Acute exacerbation of CHF (congestive heart failure): Status: Resolved Plan Patient with baseline 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 on diuretic therapy for CHF exacerbation LAURO on CKD most likely ATN from hypoperfusion (pressors, afib with RVR while in ICU) -- likely delayed recovering and anticipate some recovery with time recommend holding bumex today given rise in creatinine, will re-evaluate renal function with a.m. labs recommend daily electrolyte and renal function testing continue to monitor blood pressures and I&O closely continue to avoid nephrotoxins continue supportive care Discussed with Dr Sam Time Spent With Patient Time: Total time managing care of this patient today ____ minutes. Progress Note: Quality Stroke Does the patient have a stroke diagnosis?: No
[2024-05-25 11:03] LABS: Glucose, Whole Blood 280 mg/dL (60-115)
[2024-05-25 11:23] VITALS: BP 151/67; PULSE 65; RESP 16; TEMP 36.7; O2SAT 95
--- NOTE | 2024-05-25 11:32 | PM.PNCARD ---
Subjective Subjective Date of Service: 05/25/24 Principal diagnosis: Decompensated congestive heart failure, paroxysmal atrial fibrillation, dif Interval history: Patient says she feels drowsy. She denies any lightheadedness, syncope. No low blood pressure. Shortness of breath remains improved. Creatinine has gone up. Remains in sinus rhythm with better rate control. Review of Systems Constitutional: Reports weakness and Reports other (Feel sleepy) Cardiovascular: Denies chest pain, Denies rapid heart rate, Denies lightheadedness, Denies Loss of Consciousness, Denies dyspnea and Denies orthopnea Respiratory: Denies dyspnea Reports weakness Physical Exam Vital Signs: Last Vital Signs Temp 98.0 F 05/25/24 11:23 Pulse 65 05/25/24 11:23 Resp 16 05/25/24 11:23 BP 151/67 H 05/25/24 11:23 Pulse Ox 95 05/25/24 11:23 O2 Del Method Room Air 05/25/24 11:23 O2 Flow Rate 2 05/25/24 07:34 FiO2 60 05/21/24 13:00 BMI result Body Mass Index 22.0 GENERAL APPEARANCE: In no acute distress. On supplemental oxygen. NECK: no carotid bruit, - jugular venous distention. SKIN: no suspicious lesions, warm and dry. Skin bruising. HEART: no murmurs, regular rate and rhythm. LUNGS: CTA. No wheezes. ABDOMEN: soft, nontender. EXTREMITIES: no edema. Objective Labs and Meds 05/25/24 06:18 05/25/24 06:18 Lab results: Laboratory Results - last 24 hr 05/24/24 05/24/24 05/25/24 16:50 19:24 06:18 WBC 9.2 RBC 3.03 L Hgb 8.8 L Hct 27.7 L MCV 91.4 MCH 29.0 MCHC 31.8 RDW 15.2 Plt Count 329 MPV 10.5 Absolute Nucleated RBC 0.000 Nucleated RBC % (auto) 0.0 Sodium 135 Potassium 4.9 Chloride 96 Carbon Dioxide 30 H Anion Gap 14 BUN 26 H Creatinine 2.08 H Estim Creat Clear Calc 17.3 Estimated GFR 23 POC Glucose 80 196 H Random Glucose 135 H Calcium 9.4 05/25/24 05/25/24 06:53 10:50 WBC RBC Hgb Hct MCV MCH MCHC RDW Plt Count MPV Absolute Nucleated RBC Nucleated RBC % (auto) Sodium Potassium Chloride Carbon Dioxide Anion Gap BUN Creatinine Estim Creat Clear Calc Estimated GFR POC Glucose 141 H 280 H Random Glucose Calcium Progress Note: A&P Assessment and plan (1) Congestive heart failure: Status: Acute Assessment and Plan: Decompensated congestive heart failure with LV systolic dysfunction with high likelihood underlying significant coronary disease. Clinical creatinine is worsening. Her heart failure syndrome seems to be better. Agree with holding diuretics for 1 day only. Follow lab work tomorrow and resume p.o. Bumex tomorrow. Continue heart failure therapy and would increase hydralazine to 25 mg b.i.d. as well as continue Isordil therapy. Continue metoprolol and continue rhythm control approach. Overall prognosis is guarded. Continue pulmonary treatment. Question drowsiness related to CO2 retention. Consider blood gas. (2) Labile blood pressure: Status: Acute Assessment and Plan: Labile blood pressure most likely due to diffuse vascular disease as well as renal artery stenosis. Left kidney issues trunk and left renal artery can not be visualized most likely stenotic. Management with hydralazine and Isordil. Continue metoprolol therapy. Low-salt diet was discussed. (3) PAF (paroxysmal atrial fibrillation): Status: Acute Assessment and Plan: Paroxysmal atrial fibrillation has remained suppressed on amiodarone and metoprolol therapy. Continue both. Continue low-dose Eliquis at 2.5 mg b.i.d.. Will follow with you Time Spent With Patient Time: Total time managing care of this patient today ____ minutes. Progress Note: Quality Stroke Does the patient have a stroke diagnosis?: No Procedures Date of Service Date of Service: 05/25/24
--- NOTE | 2024-05-25 12:26 | HO.PM.IMPN ---
Subjective Subjective Date of Service: 05/25/24 Interval History: Feeling better this morning, denies shortness of breath, no chest pain no acute events overnight, slept well tolerating diet with no nausea no vomiting or abdominal pain. Later in the afternoon noted to be more tired and sleepy by electric clock mechanic. Review of Systems All other system reviewed and are negative. Physical Exam Vital Signs: Vital Signs: Last Vital Signs Temp 98.0 F 05/25/24 11:23 Pulse 65 05/25/24 11:23 Resp 16 05/25/24 11:23 BP 151/67 H 05/25/24 11:23 Pulse Ox 95 05/25/24 11:23 O2 Del Method Room Air 05/25/24 11:23 O2 Flow Rate 2 05/25/24 07:34 FiO2 60 05/21/24 13:00 BMI result Body Mass Index 22.0 Const: Other: Gen: Awake alert x3, in no acute distress HEENT: sclera anicteric, moist mucus membranes Neck: supple, no JVD Lungs: diminished, no crackles Heart: Regular Abd: soft, non-tender, non-distended, bowel sounds audible Ext: no edema Skin: warm/well-perfused Neuro: alert and oriented x3, no focal findings Psych: Appropriate affect Objective Data Active Medications Acetaminophen (Acetaminophen 325 Mg Tablet) 650 mg PO Q6H PRN PRN Reason: Pain, Mild (Pain Scale 1-3), fever or headache Albuterol/Ipratropium (Albuterol/Iprat 2.5/0.5mg 3 Ml Ampul.Neb) 3 ml INHALE Q4H PRN PRN Reason: Wheezing Last Admin: 05/23/24 00:12 Dose: 3 ml Documented By: LEELA Apixaban (Apixaban 2.5 Mg Tablet) 2.5 mg PO BID [facility] Last Admin: 05/25/24 08:08 Dose: 2.5 mg Documented By: ALEJANDRO Aspirin (Aspirin Enteric Coated 81 Mg Tablet.) 81 mg PO DAILY [facility] Last Admin: 05/25/24 08:08 Dose: 81 mg Documented By: ALEJANDRO Atorvastatin Calcium (Atorvastatin Calcium 40 Mg Tablet) 40 mg PO BEDTIME [facility] Last Admin: 05/24/24 20:25 Dose: 40 mg Documented By: CATHLEEN Calcium Carbonate (Calcium Carbonate 750 Mg Tab.Chew) 750 mg PO Q4H PRN PRN Reason: Heartburn Glucose (Glucose Gel 15 Gm Gel..Gram.) 15 gm PO Q15M PRN; Protocol PRN Reason: per Hypoglycemia Standing Ord. Hydralazine HCl (Hydralazine Hcl 10 Mg Tablet) 10 mg PO BID [facility]; Protocol Last Admin: 05/25/24 08:08 Dose: 10 mg Documented By: ALEJANDRO Dextrose (D10) 250 mls @ 750 mls/hr IV Q15M PRN; Protocol PRN Reason: per Hypoglycemia Standing Ord. Insulin Glargine (Insulin Glargine,Hum.Rec.Anlog 100 Unit/Ml 10 Ml Vial) 10 unit SUBCUT BEDTIME [facility] Last Admin: 05/24/24 20:31 Dose: 10 unit Documented By: CATHLEEN Insulin Human Lispro (Insulin Lispro 100 Unit/Ml 3 Ml Vial) 0.1 - 10 unit SUBCUT QIDACHS [facility]; Protocol Last Admin: 05/25/24 08:08 Dose: Not Given Documented By: ALEJANDRO Non-Admin Reason: No Insulin Coverage Isosorbide Dinitrate (Isosorbide Dinitrate 5 Mg Tablet) 5 mg PO 0800,1300 [facility]; Protocol Last Admin: 05/25/24 08:07 Dose: 5 mg Documented By: ALEJANDRO Magnesium Hydroxide (Milk Of Magnesia 30 Ml Oral.Susp) 30 ml PO DAILY PRN PRN Reason: Constipation Melatonin (Melatonin 3 Mg Tablet) 6 mg PO BEDTIME PRN PRN Reason: Insomnia Metoprolol Tartrate (Metoprolol Tartrate 25 Mg Tablet) 25 mg PO Q6H [facility]; Protocol Last Admin: 05/25/24 09:43 Dose: 25 mg Documented By: ALEJANDRO Omeprazole (Omeprazole 40 Mg Capsule.Dr) 40 mg PO DAILY@0630 [facility] Last Admin: 05/25/24 06:23 Dose: 40 mg Documented By: CATHLEEN Ondansetron HCl (Ondansetron Hcl 4 Mg/2 Ml Vial) 4 mg IVPUSH Q8H PRN PRN Reason: Nausea and Vomiting Last Admin: 05/24/24 05:02 Dose: 4 mg Documented By: ANTEFREN Risperidone (Risperidone 0.5 Mg Tablet) 0.5 mg PO BID [facility] Last Admin: 05/25/24 08:07 Dose: 0.5 mg Documented By: ALEJANDRO Sodium Chloride (0.9 % Sodium Chloride Flush 3 Ml Syringe) 3 ml IVFLUSH QSHIFT [facility] Last Admin: 05/25/24 08:08 Dose: 3 ml Documented By: ALEJANDRO Trazodone HCl (Trazodone Hcl 50 Mg Tablet) 50 mg PO BEDTIME PRN PRN Reason: Insomnia Last Admin: 05/23/24 00:45 Dose: 50 mg Documented By: STEWART Vitamin D (Cholecalciferol (Vitamin D3) 25 Mcg Tablet) 25 mcg PO DAILY [facility] Last Admin: 05/25/24 08:08 Dose: 25 mcg Documented By: ALEJANDRO Labs 05/25/24 06:18 05/25/24 06:18 Labs: Laboratory Results - last 24 hr 05/24/24 05/24/24 05/25/24 16:50 19:24 06:18 MCV 91.4 MCH 29.0 MCHC 31.8 RDW 15.2 Plt Count 329 MPV 10.5 Absolute Nucleated RBC 0.000 Nucleated RBC % (auto) 0.0 Anion Gap 14 Estim Creat Clear Calc 17.3 Estimated GFR 23 POC Glucose 80 196 H Random Glucose 135 H Calcium 9.4 05/25/24 05/25/24 06:53 10:50 MCV MCH MCHC RDW Plt Count MPV Absolute Nucleated RBC Nucleated RBC % (auto) Anion Gap Estim Creat Clear Calc Estimated GFR POC Glucose 141 H 280 H Random Glucose Calcium Assessment and Plan (1) LAURO (acute kidney injury): Status: Acute Plan 78-year-old lady with underlying COPD not on oxygen, severe systolic congestive heart failure, AFib, CKD, diabetes mellitus, CAD admitted 05/19/2024 with worsening dyspnea deemed to be secondary to exacerbation of underlying congestive failure and started on Lasix drip with slow improvement, requiring noninvasive positive pressure ventilatory support, thus transferred to intensive care unit. Evaluated by Cardiology service. Patient with paroxysmal AFib with RVR requiring loading with IV amiodarone and briefly pressor support, also with development of acute renal failure and oliguria, subsequently patient titrated off pressor support, renal function stabilized And patient transferred to [facility] [place] . Acute decompensated congestive heart failure with severe left ventricular systolic dysfunction/coronary disease/atrial fibrillation. Appears euvolemic/no chest pain/shortness of breath improved Case discussed with Cardiology will DC Bumex 1 mg b.i.d. Will continue hydralazine 25 mg b.i.d., Isordil 5 mg b.i.d., not on JOSE inhibitor due to kidney disease Recent echocardiogram 05/11/24: Severely reduced LV ejection fraction of 25-30% with underlying regional wall motion abnormalities suggestive of ischemic cardiomyopathy , [id number] mitral regurg Follow daily BMP if creatinine trending down will place on Bumex 1 mg daily/will discuss with Cardiology regarding use of Jardiance Paroxysmal atrial fibrillation with frequent episodes of rapid ventricular response recently diagnosed with AFib finished amiodarone loading dose will place on amiodarone 200 mg daily and Eliquis on metoprolol 25 mg q.6 hours previously was on metoprolol 200 mg b.i.d. and was discharged on Toprol-XL 200 mg daily If heart rate remain stable will transition to Toprol-XL 100 mg Acute on chronic kidney disease stage 3 Creatinine bumped up again today will hold Bumex, follow BMP closely and adjust dose of diuretics being followed by Nephrology. Renal ultrasound showed normal right kidney, small size of left kidney, right renal artery is patent, left renal artery was not imaged due to poor visualization. COPD continue home inhalers no acute exacerbation appear drowsy this morning will obtain VBG, likely due to psychiatric medications. Diabetes mellitus type 2, on insulin, continue ISS and Lantus, was on Jardiance, Tradjenta, Farxiga , netglinide and metformin in the past.. Hypertension continue hydralazine, isosorbide and metoprolol PAD/CAD Continue aspirin/atorvastatin Tobacco use disorder counseling done mood disorder/dementia - continue donepezil, trazodone, risperidone and DC nortriptyline, since not on it at home VTE ppx - apixaban In my clinical judgment, the patient requires continued inpatient hospitalization for the following reasons: LAURO, recurrent AFib,chf. Quality Stroke Does the patient have a stroke diagnosis?: No VTE Prior VTE?: No VTE Risk Level:: Medical - moderate - high VTE Device Contraindication: Treatment Not Indicated VTE Drug Contraindication: N/A - Med Ordered
--- NOTE | 2024-05-25 12:58 | P.CDIM_ITS ---
PROVIDER RESPONSE TEXT: To clarify, the appropriate diagnosis supported by the clinical indicators: Pressure Injury Stage 1 sacrum/coccyx: . QUERY TEXT: PHYSICIAN'S DOCUMENTATION REQUEST Date of Query: 05/25/2024 12:48 PM EST Patient Name: Yaneth Iraheta Admit Date: 05/19/2024 Dear Maurice Bradley MD, A review of the medical record indicates additional documentation may be needed. Please review below and update the documentation accordingly. Clinical Indicators: Wound care notes 05/24 - Stage 1 Pressure Injury Sacrum/coccyx, present on admission. Red pink intact nonblanchable and slow to kevin tissue. Foam dressing Off load pressure, protect from friction and moisture. Based on the above, could you please provide further information regarding the ulcer/wound/injury: Pressure Injury Stage 1 sacrum/coccyx suspected, possible, probable etc. Other (explain) Clinically unable to determine (explain) Thank you, Gloria Rubio, CCS, CDIS Use of terms such as suspected, likely, concern for, or probable (associated with a specific diagnosi s that is being evaluated, monitored, or treated as if it exists) are acceptable and can be coded in the inpatient se tting, when documented at the time of discharge. Please use your independent medical judgment in providing your response. THIS QUERY IS PART OF THE PERMANENT MEDICAL RECORD
[2024-05-25 13:04] LABS: Glucose, Whole Blood 224 mg/dL (60-115)
[2024-05-25] MEDS: Insulin Lispro 100 UNIT/ML 3 ML VIAL SUBCUT ×2 (13:05→21:47)
[2024-05-25 13:12] LABS: VBG Base Excess 12.1 mmol/L; VBG HCO3 34 mmol/L (22-26); VBG pCO2 35 mmHg; VBG pH 7.59 (7.32-7.43); VBG pO2 182 mmHg
[2024-05-25 13:12] LABS: Venous Blood Gas Refer to POC result
[2024-05-25 15:54] VITALS: BP 140/65; PULSE 68; RESP 17; TEMP 36.1; O2SAT 93
--- NOTE | 2024-05-25 16:15 | MHC.CM.PN ---
EMR reviewed and per MD rounds, pt is not medically cleared for discharge at this time.
--- NOTE | 2024-05-25 16:23 | PC.NURSE ---
OOB to recliner x 2 today , ambulated to the doorway and bathroom x 1 , o2sat 86% on RA , back on 2l via NC. pt reported being tired and weak.
[2024-05-25 16:38] LABS: Glucose, Whole Blood 159 mg/dL (60-115)
[2024-05-25 19:38] VITALS: BP 143/63; PULSE 71; RESP 16; TEMP 36.4; O2SAT 98
[2024-05-25 20:31] LABS: Glucose, Whole Blood 226 mg/dL (60-115)
[2024-05-25] MEDS: Insulin Glargine,Hum.rec.anlog 100 UNIT/ML 10 ML VIAL 10 UNIT SUBCUT (21:47)
[2024-05-25] MEDS: Atorvastatin Calcium 40 MG TABLET PO (21:47)
[2024-05-26] VITALS (10 sets, daily range): BP systolic 124–166; BP diastolic 54–67; PULSE 60–89; RESP 16–18; TEMP 35.8–36.8; O2SAT 93–100
[2024-05-26] MEDS: 0.9 % Sodium Chloride Flush 3 ML SYRINGE IVFLUSH ×3 (00:40→17:06)
[2024-05-26] MEDS: Metoprolol Tartrate 25 MG TABLET PO ×4 (03:13→21:13)
[2024-05-26] MEDS: Omeprazole 40 MG CAPSULE.DR PO (06:26)
[2024-05-26 07:26] LABS: Glucose, Whole Blood 88 mg/dL (60-115)
[2024-05-26 07:27] LABS: Anion Gap 15 (12-20); Blood Urea Nitrogen 24 mg/dL (9-16); Calcium 9.3 mg/dL (8.4-10.2); Carbon Dioxide 28 mmol/L (22-29); Chloride 95 mmol/L (96-108); Creatinine Clr Calc Pharmacy 19.3; Estimated Glomerular Filt Rate 26; Glucose Random 88 mg/dL (60-115); Potassium 5.1 mmol/L (3.3-5.1); Sodium 133 mmol/L (135-145)
[2024-05-26] MEDS: risperiDONE 0.5 MG TABLET PO ×2 (08:04→21:13)
[2024-05-26] MEDS: Cholecalciferol (Vitamin D3) 25 MCG TABLET PO (08:05)
[2024-05-26] MEDS: hydrALAZINE HCl 10 MG TABLET PO (08:05)
[2024-05-26] MEDS: Amiodarone HCL 200 MG TABLET PO (08:05)
[2024-05-26] MEDS: Apixaban 2.5 MG TABLET PO ×2 (08:05→21:12)
[2024-05-26] MEDS: Isosorbide Dinitrate 5 MG TABLET PO (08:05)
[2024-05-26] MEDS: Aspirin Enteric Coated 81 MG TABLET.DR PO (08:06)
--- NOTE | 2024-05-26 09:32 | PM.PNCARD ---
Subjective Subjective Date of Service: 05/26/24 Principal diagnosis: Decompensated congestive heart failure, paroxysmal atrial fibrillation, dif Interval history: Patient feeling better. Continues to have intermittent episodes of atrial fibrillation. Hemodynamically still having elevated blood pressure in the morning which tapers out in the afternoon time. Denies shortness of breath. Denies palpitations. Denies lightheadedness, syncope. Renal function has marginally improved. Denies worsening shortness of breath. Review of Systems Constitutional: Reports fatigue and Reports weakness Cardiovascular: Denies chest pain, Denies rapid heart rate, Denies lightheadedness, Denies Loss of Consciousness, Denies dyspnea and Reports dyspnea on exertion Respiratory: Denies no additional respiratory complaints, Denies dyspnea and Reports dyspnea on exertion Reports weakness Endocrine: Reports fatigue Physical Exam Vital Signs: Last Vital Signs Temp 97.9 F 05/26/24 07:04 Pulse 67 05/26/24 07:04 Resp 18 05/26/24 07:04 BP 166/54 H 05/26/24 07:04 Pulse Ox 94 05/26/24 07:04 O2 Del Method Nasal Cannula 05/26/24 07:04 O2 Flow Rate 2 05/26/24 07:04 FiO2 60 05/21/24 13:00 BMI result Body Mass Index 22.0 GENERAL APPEARANCE: In no acute distress. On supplemental oxygen. NECK: no carotid bruit, - jugular venous distention. SKIN: no suspicious lesions, warm and dry. Skin bruising. HEART: no murmurs, regular rate and rhythm. LUNGS: CTA. No wheezes. ABDOMEN: soft, nontender. EXTREMITIES: no edema. Objective Labs and Meds 05/25/24 06:18 05/26/24 06:36 Lab results: Laboratory Results - last 24 hr 05/25/24 05/25/24 05/25/24 10:50 13:01 13:06 VBG pH 7.59 H VBG pCO2 35 VBG pO2 182 VBG HCO3 34 H VBG O2 Saturation 100.0 VBG Base Excess 12.1 Sodium Potassium Chloride Carbon Dioxide Anion Gap BUN Creatinine Estim Creat Clear Calc Estimated GFR POC Glucose 280 H 224 H Random Glucose Calcium 05/25/24 05/25/24 05/26/24 16:34 20:23 06:36 VBG pH VBG pCO2 VBG pO2 VBG HCO3 VBG O2 Saturation VBG Base Excess Sodium 133 L Potassium 5.1 Chloride 95 L Carbon Dioxide 28 Anion Gap 15 BUN 24 H Creatinine 1.87 H Estim Creat Clear Calc 19.3 Estimated GFR 26 POC Glucose 159 H 226 H Random Glucose 88 Calcium 9.3 05/26/24 07:03 VBG pH VBG pCO2 VBG pO2 VBG HCO3 VBG O2 Saturation VBG Base Excess Sodium Potassium Chloride Carbon Dioxide Anion Gap BUN Creatinine Estim Creat Clear Calc Estimated GFR POC Glucose 88 Random Glucose Calcium Progress Note: A&P Assessment and plan (1) Congestive heart failure: Status: Acute Assessment and Plan: Congestive heart failure with severe LV systolic dysfunction most likely ischemic cardiomyopathy underlying significant coronary disease. Clinically remains euvolemic and symptoms have improved. Continue to hold diuretics for 1 more day. Continue strict intake and output chart. Continue trend renal function tomorrow. Continue to uptitrate hydralazine Isordil for vasodilators therapy. Continue metoprolol therapy. Overall prognosis is guarded (2) PAF (paroxysmal atrial fibrillation): Status: Acute Assessment and Plan: Paroxysmal atrial fibrillation with unfortunately continued to have episodes of atrial fibrillation despite amiodarone loading and metoprolol therapy. Can not maximize medical therapy due to at rest heart rate of 60 beats per minute and to avoid significant negative inotropic action. Continue Eliquis therapy at 2.5 mg b.i.d.. (3) Labile blood pressure: Status: Acute Assessment and Plan: Blood pressure remains labile. Maximize hydralazine Isordil as above. Continue metoprolol therapy. Low-salt diet. Will continue to follow with you Time Spent With Patient Time: Total time managing care of this patient today ____ minutes. Progress Note: Quality Stroke Does the patient have a stroke diagnosis?: No Procedures Date of Service Date of Service: 05/26/24
--- NOTE | 2024-05-26 09:45 | P.PNNP_ITS ---
Subjective Subjective Date of Service: 05/26/24 Principal diagnosis: Decompensated congestive heart failure, paroxysmal atrial fibrillation, dif Interval history: 78 y/o female with baseline CKD3, COPD, DMII, PAD, mood disorder, GERD, CAD, HTN, paroxysmal afib on anticoagulation presented on 05/19 with dyspnea discharged from hospital on 05/17 for acute CHF and developed afib with RVR while in hospital pt admitted to ICU 05/19-05/22 for acute respiratory failure requiring intubation, vasopressor support nephrology consulted for LAURO on CKD creatinine 1.28 on 05/20 05/20 evening 1.62, has remained between 1.6-1.78 since that time 05/24 creatinine 1.78 05/25 creatinine 2.08 05/26 creatinine 1.87 (bumex 1mg PO BID held yesterday) pt UOP 200 /24 hours she reports breathing is comfortable at this time denies difficulty with urination, dysuria, flank pain denies chest pain, dizziness denies abdominal pain, nausea/vomiting denies other concerns/symptoms Physical Exam 2 Vital Signs: Vital Signs: Last Vital Signs Temp 97.9 F 05/26/24 11:11 Pulse 73 05/26/24 11:11 Resp 18 05/26/24 07:04 BP 160/63 H 05/26/24 11:11 Pulse Ox 95 05/26/24 11:11 O2 Del Method Nasal Cannula 05/26/24 11:11 O2 Flow Rate 2 05/26/24 11:11 FiO2 60 05/21/24 13:00 BMI result Body Mass Index 22.0 Const: General: alert, awake and anxious Neck: Neck: Yes JVD Resp: Effort & Inspection: normal respiratory effort Auscultation: clear to auscultation bilaterally Cardio: Jugular venous distension: JVD Rate: regular rate Rhythm: a bnormal rhythm Heart sounds: S1 normal heart sound present and S2 normal heart sound present GI: Palpation (GI): Soft to palpation and nontender : General: Yes no CVA tenderness Back/Spine/Pelvis: Back: no CVA tenderness Skin: Lesions: no lesions Rashes: no rashes Extrem: General: No edema Objective Data Labs 05/25/24 06:18 05/26/24 06:36 Labs: Laboratory Results - last 24 hr 05/25/24 05/25/24 05/25/24 13:01 13:06 16:34 VBG pH 7.59 H VBG pCO2 35 VBG pO2 182 VBG HCO3 34 H VBG O2 Saturation 100.0 VBG Base Excess 12.1 Sodium Potassium Chloride Carbon Dioxide Anion Gap BUN Creatinine Estim Creat Clear Calc Estimated GFR POC Glucose 224 H 159 H Random Glucose Calcium 05/25/24 05/26/24 05/26/24 20:23 06:36 07:03 VBG pH VBG pCO2 VBG pO2 VBG HCO3 VBG O2 Saturation VBG Base Excess Sodium 133 L Potassium 5.1 Chloride 95 L Carbon Dioxide 28 Anion Gap 15 BUN 24 H Creatinine 1.87 H Estim Creat Clear Calc 19.3 Estimated GFR 26 POC Glucose 226 H 88 Random Glucose 88 Calcium 9.3 05/26/24 11:12 VBG pH VBG pCO2 VBG pO2 VBG HCO3 VBG O2 Saturation VBG Base Excess Sodium Potassium Chloride Carbon Dioxide Anion Gap BUN Creatinine Estim Creat Clear Calc Estimated GFR POC Glucose 284 H Random Glucose Calcium Microbiology Microbiology Results: Microbiology 05/19/24 00:23 Blood - Venous Blood Culture - Final No growth after 5 days. 05/18/24 23:47 Blood - Venous Blood Culture - Final No growth after 5 days. 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, EFRAIN, on diuretic therapy for CHF exacerbation LAURO on CKD most likely ATN from hypoperfusion (pressors, afib with RVR while in ICU) -- likely delayed recovering and anticipate some recovery with time creatinine improving with diuretics held, but not back to baseline- recommend continuing to hold diuresis unless patient becomes clinically hypervolemic recommend daily electrolyte and renal function testing continue to monitor blood pressures and I&O closely continue to avoid nephrotoxins continue supportive care Discussed with Dr Sam Time Spent With Patient Time: Total time managing care of this patient today ____ minutes. Progress Note: Quality Stroke Does the patient have a stroke diagnosis?: No
[2024-05-26 11:21] LABS: Glucose, Whole Blood 284 mg/dL (60-115)
[2024-05-26] MEDS: Insulin Lispro 100 UNIT/ML 3 ML VIAL SUBCUT ×2 (11:49→21:16)
--- NOTE | 2024-05-26 12:36 | HO.WOUND ---
Wound Consult: Initial 78yr old? female admitted to [facility] [place] on 05/19/24 - See progress notes and H&P for detailed history.? Wound consult placed for right hand skin tear not seen today for her coccyx.? Patient agreeable to assessment. Right hand skin tear flap reapproximated active bloody oozing noted soaking through several dressings. Dressing removed and assessed - patient is on blood thinning agents. direct care nurse reports xeroform was stuck to wound bed. Arrival to bedside bleeding noted to be saturating dressing, removed with out trauma active oozing continues. Surgicel applied to wound bed and left in place for a period of time to form clot, removed and redressed with skin prep to the periwound, Wound gel and xeroform to wound bed, followed by dry gauze ABD pad and wrap. Sacrum and Coccyx Etiology: ?Stage 1 Pressure Injury ?Present on Admission Goals of Treatment: ? Off Load Pressure - protect from friction and moisture Recommendations: 1. Turn and Reposition every 2 hours and as needed for patient comfort.? Use pillows or wedges to support off loading positions. 2. Off Load all bony prominences with use of pillows and heel boots if needed.? Apply Preventative foams where needed. ? 3. Monitor for incontinence and moisture control, use barrier creams when needed for prevention and treatment. 4. Provide adequate and supplemental nutrition.? 5. Order low air loss mattress. 6. When applicable maintain blood glucose levels per Providers order. 7. Sacrum and Coccyx - Off Load Pressure Q 2 hr turns with pillows. Routine Cleansing. Apply skin prep and Sacral foam dressing. Peel back and assess Q shift change every 5 days and PRN. 8. Right Hand skin tear - Gently pat with NS moist gauze, apply skin prep to periwound allow to dry. Apply thin layer of wound gel followed by xeroform, dry gauze and abd pad, wrap. Change Daily. Do not apply tape to patient?s skin.? Avoid Adhesive application to skin - when necessary, apply skin prep prior.? Re-consult wound care Nurse for wound deterioration or wound changes.
--- NOTE | 2024-05-26 12:53 | HO.PM.IMPN ---
Subjective Subjective Date of Service: 05/26/24 Interval History: seen and examined this morning follow up for CHF, LAURO feeling tired, but denies sob, chest pain, palpitations Review of Systems Review of Systems: Yes all other systems are reviewed and are negative Constitutional Constitutional: Denies chills and Denies fever(s) Cardiovascular Cardiovascular: Denies chest pain, Denies palpitations and Denies dyspnea Respiratory Respiratory: Denies cough and Denies dyspnea Endocrine Endocrine: Denies palpitations Physical Exam Vital Signs: Vital Signs: Last Vital Signs Temp 97.9 F 05/26/24 11:11 Pulse 73 05/26/24 11:11 Resp 18 05/26/24 07:04 BP 160/63 H 05/26/24 11:11 Pulse Ox 95 05/26/24 11:11 O2 Del Method Nasal Cannula 05/26/24 11:11 O2 Flow Rate 2 05/26/24 11:11 FiO2 60 05/21/24 13:00 BMI result Body Mass Index 22.0 Const: General: cooperative, no acute distress, alert and awake Nutritional Appearance: average body habitus Orientation/consciousness: patient oriented x3 Resp: Effort & Inspection: normal respiratory effort, able to speak in complete sentences, no respiratory distress and no use of accessory muscles Auscultation: clear to auscultation bilaterally Cardio: Rate: regular rate GI: Inspection: No distended Palpation (GI): Soft to palpation and nontender Neuro: General: patient oriented x3, moves all extremities and CN's II-XI intact bilaterally Extrem: General: Yes no pedal edema Objective Data Active Medications Acetaminophen (Acetaminophen 325 Mg Tablet) 650 mg PO Q6H PRN PRN Reason: Pain, Mild (Pain Scale 1-3), fever or headache Albuterol/Ipratropium (Albuterol/Iprat 2.5/0.5mg 3 Ml Ampul.Neb) 3 ml INHALE Q4H PRN PRN Reason: Wheezing Last Admin: 05/23/24 00:12 Dose: 3 ml Documented By: LEELA Amiodarone HCl (Amiodarone Hcl 200 Mg Tablet) 200 mg PO DAILY [facility] Last Admin: 05/26/24 08:05 Dose: 200 mg Documented By: INGE Apixaban (Apixaban 2.5 Mg Tablet) 2.5 mg PO BID [facility] Last Admin: 05/26/24 08:05 Dose: 2.5 mg Documented By: INGE Aspirin (Aspirin Enteric Coated 81 Mg Tablet.) 81 mg PO DAILY [facility] Last Admin: 05/26/24 08:06 Dose: 81 mg Documented By: INGE Atorvastatin Calcium (Atorvastatin Calcium 40 Mg Tablet) 40 mg PO BEDTIME [facility] Last Admin: 05/25/24 21:47 Dose: 40 mg Documented By: SONNY Calcium Carbonate (Calcium Carbonate 750 Mg Tab.Chew) 750 mg PO Q4H PRN PRN Reason: Heartburn Glucose (Glucose Gel 15 Gm Gel..Gram.) 15 gm PO Q15M PRN; Protocol PRN Reason: per Hypoglycemia Standing Ord. Dextrose (D10) 250 mls @ 750 mls/hr IV Q15M PRN; Protocol PRN Reason: per Hypoglycemia Standing Ord. Insulin Glargine (Insulin Glargine,Hum.Rec.Anlog 100 Unit/Ml 10 Ml Vial) 10 unit SUBCUT BEDTIME [facility] Last Admin: 05/25/24 21:47 Dose: 10 unit Documented By: SONNY Insulin Human Lispro (Insulin Lispro 100 Unit/Ml 3 Ml Vial) 0.1 - 10 unit SUBCUT QIDACHS [facility]; Protocol Last Admin: 05/26/24 11:49 Dose: 6 unit Documented By: JOSELYN Magnesium Hydroxide (Milk Of Magnesia 30 Ml Oral.Susp) 30 ml PO DAILY PRN PRN Reason: Constipation Melatonin (Melatonin 3 Mg Tablet) 6 mg PO BEDTIME PRN PRN Reason: Insomnia Metoprolol Tartrate (Metoprolol Tartrate 25 Mg Tablet) 25 mg PO Q6H [facility]; Protocol Last Admin: 05/26/24 11:49 Dose: 25 mg Documented By: JOSELYN Omeprazole (Omeprazole 40 Mg Capsule.) 40 mg PO DAILY@0630 [facility] Last Admin: 05/26/24 06:26 Dose: 40 mg Documented By: LUIS ANGEL Ondansetron HCl (Ondansetron Hcl 4 Mg/2 Ml Vial) 4 mg IVPUSH Q8H PRN PRN Reason: Nausea and Vomiting Last Admin: 05/24/24 05:02 Dose: 4 mg Documented By: LUIS ANGEL Risperidone (Risperidone 0.5 Mg Tablet) 0.5 mg PO BID [facility] Last Admin: 05/26/24 08:04 Dose: 0.5 mg Documented By: INGE Sodium Chloride (0.9 % Sodium Chloride Flush 3 Ml Syringe) 3 ml IVFLUSH QSHIFT [facility] Last Admin: 05/26/24 08:07 Dose: 3 ml Documented By: INGE Trazodone HCl (Trazodone Hcl 50 Mg Tablet) 50 mg PO BEDTIME PRN PRN Reason: Insomnia Last Admin: 05/23/24 00:45 Dose: 50 mg Documented By: STEWART Vitamin D (Cholecalciferol (Vitamin D3) 25 Mcg Tablet) 25 mcg PO DAILY [facility] Last Admin: 05/26/24 08:05 Dose: 25 mcg Documented By: INGE Labs 05/25/24 06:18 05/26/24 06:36 Labs: Laboratory Results - last 24 hr 05/25/24 05/25/24 05/25/24 13:01 13:06 16:34 VBG pH 7.59 H VBG pCO2 35 VBG pO2 182 VBG HCO3 34 H VBG O2 Saturation 100.0 VBG Base Excess 12.1 Anion Gap Estim Creat Clear Calc Estimated GFR POC Glucose 224 H 159 H Random Glucose Calcium 05/25/24 05/26/24 05/26/24 20:23 06:36 07:03 VBG pH VBG pCO2 VBG pO2 VBG HCO3 VBG O2 Saturation VBG Base Excess Anion Gap 15 Estim Creat Clear Calc 19.3 Estimated GFR 26 POC Glucose 226 H 88 Random Glucose 88 Calcium 9.3 05/26/24 11:12 VBG pH VBG pCO2 VBG pO2 VBG HCO3 VBG O2 Saturation VBG Base Excess Anion Gap Estim Creat Clear Calc Estimated GFR POC Glucose 284 H Random Glucose Calcium Assessment and Plan (1) LAURO (acute kidney injury): Status: Acute (2) Congestive heart failure: Status: Acute Plan This is a 78-year-old lady with underlying COPD not on oxygen, severe systolic congestive heart failure, AFib, CKD, diabetes mellitus, CAD admitted 05/19/2024 with worsening dyspnea deemed to be secondary to exacerbation of underlying congestive failure and started on Lasix drip with slow improvement, requiring noninvasive positive pressure ventilatory support, thus transferred to intensive care unit. Evaluated by Cardiology service. Patient with paroxysmal AFib with RVR requiring loading with IV amiodarone and briefly pressor support, also with development of acute renal failure and oliguria, subsequently patient titrated off pressor support, renal function stabilized And patient transferred to [facility] on . acute respiratory failure with hypoxia due t Acute decompensated congestive heart failure with severe left ventricular systolic dysfunction/coronary disease/atrial fibrillation. Appears euvolemic/no chest pain/shortness of breath improved hydralazine increased to 25 mg b.i.d., Isordil increased to 10 mg b.i.d., not on JOSE inhibitor due to kidney disease Recent echocardiogram 05/11/24: Severely reduced LV ejection fraction of 25-30% with underlying regional wall motion abnormalities suggestive of ischemic cardiomyopathy, [id number] mitral regurg Follow daily BMP if creatinine trending down will place on Bumex 1 mg daily - hold diuretics for now cardiology following - overall prognosis guarded wean oxygen as tolerated Paroxysmal atrial fibrillation with frequent episodes of rapid ventricular response recently diagnosed with AFib finished amiodarone loading dose will place on amiodarone 200 mg daily and Eliquis on metoprolol 25 mg q.6 hours previously was on metoprolol 200 mg b.i.d. and was discharged on Toprol-XL 200 mg daily - If heart rate remain stable will transition to Toprol-XL 100 mg Acute on chronic kidney disease stage 3 renal function trending down diuretics on hold Renal ultrasound showed normal right kidney, small size of left kidney, right renal artery is patent, left renal artery was not imaged due to poor visualization nephrology following COPD continue home inhalers no acute exacerbation Diabetes mellitus type 2 on insulin continue ISS and Lantus, was on Jardiance, Tradjenta, Farxiga , netglinide and metformin in the past.. Hypertension c ontinue hydralazine, isosorbide and metoprolol PAD/CAD Continue aspirin/atorvastatin Tobacco use disorder counseling done mood disorder/dementia - continue donepezil, trazodone, risperidone and DC nortriptyline, since not on it at home VTE ppx - apixaban In my clinical judgment, the patient requires continued inpatient hospitalization for the following reasons: LAURO, recurrent AFib,chf. Quality Stroke Does the patient have a stroke diagnosis?: No VTE Prior VTE?: No VTE Risk Level:: Medical - moderate - high VTE Device Contraindication: Treatment Not Indicated VTE Drug Contraindication: N/A - Med Ordered
[2024-05-26] MEDS: Isosorbide Dinitrate 10 MG TABLET PO (13:28)
[2024-05-26 16:12] LABS: Glucose, Whole Blood 92 mg/dL (60-115)
[2024-05-26 20:44] LABS: Glucose, Whole Blood 261 mg/dL (60-115)
[2024-05-26] MEDS: Atorvastatin Calcium 40 MG TABLET PO (21:13)
[2024-05-26] MEDS: hydrALAZINE HCl 25 MG TABLET PO (21:15)
[2024-05-26] MEDS: Insulin Glargine,Hum.rec.anlog 100 UNIT/ML 10 ML VIAL 10 UNIT SUBCUT (21:16)
[2024-05-27] VITALS (10 sets, daily range): BP systolic 139–166; BP diastolic 60–78; PULSE 68–77; RESP 16–18; TEMP 36.2–36.6; O2SAT 90–99
[2024-05-27] MEDS: Metoprolol Tartrate 25 MG TABLET PO ×4 (04:11→20:52)
[2024-05-27 07:27] LABS: Glucose, Whole Blood 181 mg/dL (60-115)
[2024-05-27 07:59] LABS: Anion Gap 13 (12-20); Blood Urea Nitrogen 26 mg/dL (9-16); Calcium 9.3 mg/dL (8.4-10.2); Carbon Dioxide 30 mmol/L (22-29); Chloride 94 mmol/L (96-108); Creatinine Clr Calc Pharmacy 22.1; Estimated Glomerular Filt Rate 31; Glucose Random 197 mg/dL (60-115); Potassium 4.7 mmol/L (3.3-5.1); Sodium 132 mmol/L (135-145)
--- NOTE | 2024-05-27 08:30 | PM.PNNEP ---
Subjective Subjective Date of Service: 05/27/24 Principal diagnosis: Decompensated congestive heart failure, paroxysmal atrial fibrillation, dif Interval history: 78 y/o female with baseline CKD3, COPD, DMII, PAD, mood disorder, GERD, CAD, HTN, paroxysmal afib on anticoagulation presented on 05/19 with dyspnea discharged from hospital on 05/17 for acute CHF and developed afib with RVR while in hospital pt admitted to ICU 05/19-05/22 for acute respiratory failure requiring intubation, vasopressor support nephrology consulted for LAURO on CKD creatinine 1.28 on 05/20 05/20 evening 1.62, has remained between 1.6-1.78 since that time 05/24 creatinine 1.78 05/25 creatinine 2.08 05/26 creatinine 1.87 (bumex 1mg PO BID held 05/25 a.m.) 05/27 creatinine 1.63 pt UOP 1025mL /24 hours she reports breathing is comfortable at this time denies difficulty with urination, dysuria, flank pain denies chest pain, dizziness denies abdominal pain, nausea/vomiting denies other concerns/symptoms Physical Exam Vital Signs: Vital Signs: Last Vital Signs Temp 97.7 F 05/27/24 07:44 Pulse 76 05/27/24 07:44 Resp 18 05/27/24 07:44 BP 159/71 H 05/27/24 07:44 Pulse Ox 98 05/27/24 07:44 O2 Del Method Nasal Cannula 05/27/24 07:44 O2 Flow Rate 2 05/27/24 07:44 FiO2 60 05/21/24 13:00 BMI result Body Mass Index 22.0 Const: General: alert, awake and anxious Neck: Neck: Yes JVD Resp: Effort & Inspection: normal respiratory effort Auscultation: clear to auscultation bilaterally Cardio: Jugular venous distension: JVD Rate: regular rate Rhythm: abnormal rhythm Heart sounds: S1 normal heart sound present and S2 normal heart sound present GI: Palpation (GI): Soft to palpation and nontender : General: Yes no CVA tenderness Back/Spine/Pelvis: Back: no CVA tenderness Skin: Lesions: no lesions Rashes: no rashes Extrem: General: No edema Objective Data Labs 05/25/24 06:18 05/27/24 06:57 Labs: Laboratory Results - last 24 hr 05/26/24 05/26/24 05/26/24 11:12 16:09 20:41 Sodium Potassium Chloride Carbon Dioxide Anion Gap BUN Creatinine Estim Creat Clear Calc Estimated GFR POC Glucose 284 H 92 261 H Random Glucose Calcium 05/27/24 05/27/24 06:57 07:24 Sodium 132 L Potassium 4.7 Chloride 94 L Carbon Dioxide 30 H Anion Gap 13 BUN 26 H Creatinine 1.63 H Estim Creat Clear Calc 22.1 Estimated GFR 31 POC Glucose 181 H Random Glucose 197 H Calcium 9.3 Microbiology Microbiology Results: Microbiology 05/19/24 00:23 Blood - Venous Blood Culture - Final No growth after 5 days. 05/18/24 23:47 Blood - Venous Blood Culture - Final No growth after 5 days. 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, EFRAIN, on diuretic therapy for CHF exacerbation LAURO on CKD most likely ATN from hypoperfusion (pressors, afib with RVR while in ICU) -- likely delayed recovering and anticipate some recovery with time creatinine improving with diuretics held; bumex re-started today, may re-assess creatinine tomorrow in response to diuretics recommend daily electrolyte and renal function testing continue to monitor blood pressures and I&O closely continue to avoid nephrotoxins continue supportive care Discussed with Dr Sam Time Spent With Patient Time: Total time managing care of this patient today ____ minutes. Progress Note: Quality Stroke Does the patient have a stroke diagnosis?: No
[2024-05-27] MEDS: Isosorbide Dinitrate 10 MG TABLET PO ×2 (08:44→12:27)
[2024-05-27] MEDS: Apixaban 2.5 MG TABLET PO ×2 (08:45→20:52)
[2024-05-27] MEDS: Amiodarone HCL 200 MG TABLET PO (08:45)
[2024-05-27] MEDS: Aspirin Enteric Coated 81 MG TABLET.DR PO (08:45)
[2024-05-27] MEDS: Insulin Lispro 100 UNIT/ML 3 ML VIAL SUBCUT ×4 (08:45→20:53)
[2024-05-27] MEDS: Cholecalciferol (Vitamin D3) 25 MCG TABLET PO (08:45)
[2024-05-27] MEDS: risperiDONE 0.5 MG TABLET PO ×2 (08:45→20:52)
[2024-05-27] MEDS: hydrALAZINE HCl 25 MG TABLET PO (08:45)
[2024-05-27] MEDS: 0.9 % Sodium Chloride Flush 3 ML SYRINGE IVFLUSH ×3 (08:46→20:58)
[2024-05-27 11:01] LABS: Glucose, Whole Blood 172 mg/dL (60-115)
--- NOTE | 2024-05-27 11:08 | PM.PNCARD ---
Subjective Subjective Date of Service: 05/27/24 Principal diagnosis: Decompensated congestive heart failure, paroxysmal atrial fibrillation, dif Interval history: no worsening heart failure. No episodes of atrial fibrillation. Blood pressure still elevated but better. Creatinine is improved today. Review of Systems Constitutional: Reports fatigue and Reports lethargy Eyes: Reports no additional eye complaints Cardiovascular: Reports no additional cardiovascular complaints and Reports dyspnea on exertion Respiratory: Reports dyspnea on exertion Musculoskeletal: Reports no additional musculoskeletal complaints Reports system reviewed and no additional complaints, except as documented Endocrine: Reports fatigue Physical Exam Vital Signs: Last Vital Signs Temp 97.7 F 05/27/24 07:44 Pulse 76 05/27/24 09:39 Resp 18 05/27/24 07:44 BP 159/71 H 05/27/24 09:39 Pulse Ox 98 05/27/24 09:39 O2 Del Method Nasal Cannula 05/27/24 07:44 O2 Flow Rate 2 05/27/24 07:44 FiO2 60 05/21/24 13:00 BMI result Body Mass Index 22.0 GENERAL APPEARANCE: In no acute distress. On supplemental oxygen. NECK: no carotid bruit, - jugular venous distention. SKIN: no suspicious lesions, warm and dry. Skin bruising. HEART: no murmurs, regular rate and rhythm. LUNGS: CTA. No wheezes. ABDOMEN: soft, nontender. EXTREMITIES: no edema. Objective Labs and Meds 05/25/24 06:18 05/27/24 06:57 Lab results: Laboratory Results - last 24 hr 05/26/24 05/26/24 05/26/24 11:12 16:09 20:41 Sodium Potassium Chloride Carbon Dioxide Anion Gap BUN Creatinine Estim Creat Clear Calc Estimated GFR POC Glucose 284 H 92 261 H Random Glucose Calcium 05/27/24 05/27/24 05/27/24 06:57 07:24 10:53 Sodium 132 L Potassium 4.7 Chloride 94 L Carbon Dioxide 30 H Anion Gap 13 BUN 26 H Creatinine 1.63 H Estim Creat Clear Calc 22.1 Estimated GFR 31 POC Glucose 181 H 172 H Random Glucose 197 H Calcium 9.3 Progress Note: A&P Assessment and plan (1) Congestive heart failure: Status: Acute Assessment and Plan: Congestive heart failure with severe cardiomyopathy. Clinically appears to be still euvolemic. Creatinine has improved. Will restart her low-dose Bumex 1 mg daily to avoid development of heart failure syndrome. Continue rhythm control approach. Continue oxygen if needed otherwise consider oxygen desaturation study. Continue afterload and preload reduction with hydralazine and Isordil and continue to maximize it. Continue metoprolol therapy for neurohormonal modulation as well as for rhythm control. Overall prognosis is guarded (2) PAF (paroxysmal atrial fibrillation): Status: Acute Assessment and Plan: paroxysmal atrial fibrillation remained suppressed on amiodarone loading which to continue for total of 2 weeks and then switch to 200 mg daily. Continue metoprolol as well which has helped in addition to amiodarone to maintain rhythm. Continue oral anticoagulation. (3) Labile blood pressure: Status: Acute Assessment and Plan: Blood pressure she was labile most likely diffuse vascular disease and/ or renal artery stenosis. At this point in time I would uptitrate hydralazine to 50 mg b.i.d. and continue Isordil. Continue metoprolol therapy. Low-salt diet recommended. Will sign off. Plan for discharge potentially tomorrow. Will set up for outpatient follow-up Time Spent With Patient Time: Total time managing care of this patient today ____ minutes. Progress Note: Quality Stroke Does the patient have a stroke diagnosis?: No Procedures Date of Service Date of Service: 05/27/24
--- NOTE | 2024-05-27 11:22 | MHC.CM.PN ---
EMR REVIEWED, PER HOSPITALIST PT MAY BE MEDICALLY CLEARED FOR STR, CM MET W/PT TO DETERMINE PREFERENCES, PT REPORTS SHE HAS NO PREFERENCES HOWEVER DOES NOT WANT [facility] SHE DID NOT HAVE A GOOD EXPEREIENCE THERE, CM WILL PLACE REFERRAL ONCE [facility] IS WORKING AGAIN.
[2024-05-27] MEDS: Bumetanide 1 MG TABLET PO (12:26)
--- NOTE | 2024-05-27 14:29 | HO.PM.IMPN ---
Subjective Subjective Date of Service: 05/27/24 Interval History: seen and examined this morning follow up for CHF feels tired; no sob no cough Review of Systems Review of Systems: Yes all other systems are reviewed and are negative Constitutional Constitutional: Denies chills and Denies fever(s) Physical Exam Vital Signs: Vital Signs: Last Vital Signs Temp 97.4 F 05/27/24 11:13 Pulse 68 05/27/24 11:13 Resp 18 05/27/24 11:13 BP 140/62 H 05/27/24 11:13 Pulse Ox 99 05/27/24 11:13 O2 Del Method Nasal Cannula 05/27/24 11:13 O2 Flow Rate 2 05/27/24 11:13 FiO2 60 05/21/24 13:00 BMI result Body Mass Index 22.0 Const: General: cooperative, no acute distress, alert and awake Nutritional Appearance: average body habitus Orientation/consciousness: patient oriented x3 Resp: Effort & Inspection: normal respiratory effort, able to speak in complete sentences, no respiratory distress and no use of accessory muscles Auscultation: clear to auscultation bilaterally Cardio: Rate: regular rate GI: Inspection: No distended Palpation (GI): Soft to palpation and nontender Neuro: General: patient oriented x3, moves all extremities and CN's II-XI intact bilaterally Extrem: General: Yes no pedal edema Objective Data Active Medications Acetaminophen (Acetaminophen 325 Mg Tablet) 650 mg PO Q6H PRN PRN Reason: Pain, Mild (Pain Scale 1-3), fever or headache Albuterol/Ipratropium (Albuterol/Iprat 2.5/0.5mg 3 Ml Ampul.Neb) 3 ml INHALE Q4H PRN PRN Reason: Wheezing Last Admin: 05/23/24 00:12 Dose: 3 ml Documented By: LEELA Amiodarone HCl (Amiodarone Hcl 200 Mg Tablet) 200 mg PO DAILY [facility] Last Admin: 05/27/24 08:45 Dose: 200 mg Documented By: JOSELYN Apixaban (Apixaban 2.5 Mg Tablet) 2.5 mg PO BID [facility] Last Admin: 05/27/24 08:45 Dose: 2.5 mg Documented By: JOSELYN Aspirin (Aspirin Enteric Coated 81 Mg Tablet.) 81 mg PO DAILY [facility] Last Admin: 05/27/24 08:45 Dose: 81 mg Documented By: JOSELYN Atorvastatin Calcium (Atorvastatin Calcium 40 Mg Tablet) 40 mg PO BEDTIME [facility] Last Admin: 05/26/24 21:13 Dose: 40 mg Documented By: ROHIT Bumetanide (Bumetanide 1 Mg Tablet) 1 mg PO DAILY [facility]; Protocol Last Admin: 05/27/24 12:26 Dose: 1 mg Documented By: JOSELYN Calcium Carbonate (Calcium Carbonate 750 Mg Tab.Chew) 750 mg PO Q4H PRN PRN Reason: Heartburn Glucose (Glucose Gel 15 Gm Gel..Gram.) 15 gm PO Q15M PRN; Protocol PRN Reason: per Hypoglycemia Standing Ord. Hydralazine HCl (Hydralazine Hcl 25 Mg Tablet) 25 mg PO BID [facility]; Protocol Last Admin: 05/27/24 08:45 Dose: 25 mg Documented By: JOSELYN Dextrose (D10) 250 mls @ 750 mls/hr IV Q15M PRN; Protocol PRN Reason: per Hypoglycemia Standing Ord. Insulin Glargine (Insulin Glargine,Hum.Rec.Anlog 100 Unit/Ml 10 Ml Vial) 10 unit SUBCUT BEDTIME [facility] Last Admin: 05/26/24 21:16 Dose: 10 unit Documented By: ROHIT Insulin Human Lispro (Insulin Lispro 100 Unit/Ml 3 Ml Vial) 0.1 - 10 unit SUBCUT QIDACHS [facility]; Protocol Last Admin: 05/27/24 12:27 Dose: 2 unit Documented By: JOSELYN Isosorbide Dinitrate (Isosorbide Dinitrate 10 Mg Tablet) 10 mg PO BID@0800,1300 [facility]; Protocol Last Admin: 05/27/24 12:27 Dose: 10 mg Documented By: JOSELYN Magnesium Hydroxide (Milk Of Magnesia 30 Ml Oral.Susp) 30 ml PO DAILY PRN PRN Reason: Constipation Melatonin (Melatonin 3 Mg Tablet) 6 mg PO BEDTIME PRN PRN Reason: Insomnia Metoprolol Tartrate (Metoprolol Tartrate 25 Mg Tablet) 25 mg PO Q6H [facility]; Protocol Last Admin: 05/27/24 12:27 Dose: 25 mg Documented By: JOSELYN Omeprazole (Omeprazole 40 Mg Capsule.Dr) 40 mg PO DAILY@0630 [facility] Last Admin: 05/27/24 06:45 Dose: Not Given Documented By: ROHIT Non-Admin Reason: Patient Refused Ondansetron HCl (Ondansetron Hcl 4 Mg/2 Ml Vial) 4 mg IVPUSH Q8H PRN PRN Reason: Nausea and Vomiting Last Admin: 05/24/24 05:02 Dose: 4 mg Documented By: LUIS ANGEL Risperidone (Risperidone 0.5 Mg Tablet) 0.5 mg PO BID [facility] Last Admin: 05/27/24 08:45 Dose: 0.5 mg Documented By: JOSELYN Sodium Chloride (0.9 % Sodium Chloride Flush 3 Ml Syringe) 3 ml IVFLUSH QSHIFT [facility] Last Admin: 05/27/24 08:46 Dose: 3 ml Documented By: JOSELYN Trazodone HCl (Trazodone Hcl 50 Mg Tablet) 50 mg PO BEDTIME PRN PRN Reason: Insomnia Last Admin: 05/23/24 00:45 Dose: 50 mg Documented By: STEWART Vitamin D (Cholecalciferol (Vitamin D3) 25 Mcg Tablet) 25 mcg PO DAILY [facility] Last Admin: 05/27/24 08:45 Dose: 25 mcg Documented By: JOSELYN Labs 05/25/24 06:18 05/27/24 06:57 Labs: Laboratory Results - last 24 hr 05/26/24 05/26/24 05/27/24 16:09 20:41 06:57 Anion Gap 13 Estim Creat Clear Calc 22.1 Estimated GFR 31 POC Glucose 92 261 H Random Glucose 197 H Calcium 9.3 05/27/24 05/27/24 07:24 10:53 Anion Gap Estim Creat Clear Calc Estimated GFR POC Glucose 181 H 172 H Random Glucose Calcium Assessment and Plan (1) Congestive heart failure: Status: Acute Plan This is a 78-year-old lady with underlying COPD not on oxygen, severe systolic congestive heart failure, AFib, CKD, diabetes mellitus, CAD admitted 05/19/2024 with worsening dyspnea deemed to be secondary to exacerbation of underlying congestive failure and started on Lasix drip with slow improvement, requiring noninvasive positive pressure ventilatory support, thus transferred to intensive care unit. Evaluated by Cardiology service. Patient with paroxysmal AFib with RVR requiring loading with IV amiodarone and briefly pressor support, also with development of acute renal failure and oliguria, subsequently patient titrated off pressor support, renal function stabilized And patient transferred to [facility] on 05/22. acute respiratory failure with hypoxia due to Acute decompensated congestive heart failure with severe left ventricular systolic dysfunction/coronary disease/atrial fibrillation. Appears euvolemic/no chest pain/shortness of breath improved hydralazine increased to 25 mg b.i.d., Isordil increased to 10 mg b.i.d., not on JOSE inhibitor due to kidney disease Recent echocardiogram 05/11/24: Severely reduced LV ejection fraction of 25-30% with underlying regional wall motion abnormalities suggestive of ischemic cardiomyopathy, [id number] mitral regurg Follow daily BMP if creatinine trending down will place on Bumex 1 mg daily - hold diuretics for now cardiology following - overall prognosis guarded wean oxygen as tolerated Paroxysmal atrial fibrillation with frequent episodes of rapid ventricular response recently diagnosed with AFib finished amiodarone loading dose will place on amiodarone 200 mg daily continue metoprolol, Eliquis Acute on chronic kidney disease stage 3 likely due to ATN from hypotension rather then over-diuresis; renal function trending down Renal ultrasound showed normal right kidney, small size of left kidney, right renal artery is patent, left renal artery was not imaged due to poor visualization follow BMP with resumption of diuretics nephrology following COPD continue home inhalers no acute exacerbation Diabetes mellitus type 2 on insulin continue ISS and Lantus Hypertension continue hydralazine, isosorbide and metoprolol PAD/CAD Continue aspirin/atorvastatin Tobacco use disorder counseling done mood disorder/dementia - continue donepezil, trazodone, risperidone and DC nortriptyline, since not on it at home VTE ppx - apixaban In my clinical judgment, the patient requires continued inpatient hospitalization for the following reasons: LAURO, recurrent AFib,chf. Quality Stroke Does the patient have a stroke diagnosis?: No VTE Prior VTE?: No VTE Risk Level:: Medical - moderate - high VTE Device Contraindication: Treatment Not Indicated VTE Drug Contraindication: N/A - Med Ordered
[2024-05-27 16:25] LABS: Glucose, Whole Blood 300 mg/dL (60-115)
[2024-05-27] MEDS: Acetaminophen 325 MG TABLET 650 MG PO (17:58)
[2024-05-27 20:26] LABS: Glucose, Whole Blood 201 mg/dL (60-115)
[2024-05-27] MEDS: Atorvastatin Calcium 40 MG TABLET PO (20:52)
[2024-05-27] MEDS: Insulin Glargine,Hum.rec.anlog 100 UNIT/ML 10 ML VIAL 10 UNIT SUBCUT (20:52)
[2024-05-27] MEDS: hydrALAZINE HCl 50 MG TABLET PO (20:52)
[2024-05-28 03:43] VITALS: BP 160/72; PULSE 76; RESP 18; TEMP 36.7; O2SAT 91
[2024-05-28] MEDS: Metoprolol Tartrate 25 MG TABLET PO ×2 (03:52→10:26)
[2024-05-28] MEDS: Albuterol/Iprat 2.5/0.5MG 3 ML AMPUL.NEB INHALE (05:05)
[2024-05-28 05:07] VITALS: PULSE 76; RESP 18; O2SAT 93
[2024-05-28] MEDS: Omeprazole 40 MG CAPSULE.DR PO (06:17)
[2024-05-28 07:19] VITALS: BP 147/69; PULSE 72; RESP 17; TEMP 36.7; O2SAT 95
[2024-05-28 07:23] LABS: Glucose, Whole Blood 170 mg/dL (60-115)
[2024-05-28 08:09] LABS: Hematocrit 25.3 % (37.0-47.0); Hemoglobin 8.1 g/dl (12.0-16.0); Mean Corpuscular Hemoglobin 28.7 pg (27.0-33.0); Mean Corpuscular Volume 89.7 fL (80.0-98.0); Platelet Count 318 X10*3/uL (160-400); Red Blood Count 2.82 X10*6/uL (4.20-5.50); Red Cell Distribution Width 14.7 % (11.0-16.0); White Blood Count 6.8 X10*3/uL (4.8-10.8)
[2024-05-28] MEDS: Cholecalciferol (Vitamin D3) 25 MCG TABLET PO (08:10)
[2024-05-28] MEDS: risperiDONE 0.5 MG TABLET PO (08:10)
[2024-05-28] MEDS: Apixaban 2.5 MG TABLET PO (08:10)
[2024-05-28] MEDS: Insulin Lispro 100 UNIT/ML 3 ML VIAL SUBCUT ×2 (08:10→12:59)
[2024-05-28] MEDS: Isosorbide Dinitrate 10 MG TABLET PO ×2 (08:10→12:59)
[2024-05-28] MEDS: hydrALAZINE HCl 50 MG TABLET PO (08:10)
[2024-05-28] MEDS: Amiodarone HCL 200 MG TABLET PO (08:10)
[2024-05-28] MEDS: Bumetanide 1 MG TABLET PO (08:10)
[2024-05-28] MEDS: 0.9 % Sodium Chloride Flush 3 ML SYRINGE IVFLUSH (08:11)
[2024-05-28] MEDS: Aspirin Enteric Coated 81 MG TABLET.DR PO (08:20)
[2024-05-28 08:24] LABS: Anion Gap 12 (12-20); Blood Urea Nitrogen 24 mg/dL (9-16); Calcium 9.7 mg/dL (8.4-10.2); Carbon Dioxide 33 mmol/L (22-29); Chloride 94 mmol/L (96-108); Creatinine Clr Calc Pharmacy 22.7; Estimated Glomerular Filt Rate 32; Glucose Random 159 mg/dL (60-115); Potassium 4.3 mmol/L (3.3-5.1); Sodium 135 mmol/L (135-145)
[2024-05-28] MEDS: Acetaminophen 325 MG TABLET 650 MG PO (10:25)
--- NOTE | 2024-05-28 10:26 | MHC.CM.PN ---
Second IMM 05/28/24, Pt has been medically cleared, she will go this afternoon to [facility] via BLS.
[2024-05-28 11:17] VITALS: BP 147/67; PULSE 70; RESP 18; TEMP 36.5; O2SAT 96
[2024-05-28 11:40] LABS: Glucose, Whole Blood 154 mg/dL (60-115)
--- NOTE | 2024-05-28 13:06 | P.DS_ITS ---
DS: Providers Provider Date of Service: 05/28/24 Date of admission: 05/19/24 02:07 Primary care physician: Gene Sanchez MD Consults: 05/19/24 08:25 Consult to Cardiology Routine Consulting Provider: [facility] Reason for consultation: chf excerebation Has provider been notified: No 05/19/24 11:03 Consult to Critical Care Routine Consulting Provider: Ollie Larson Reason for consultation: goal of care Has provider been notified: No 05/23/24 08:54 Consult to Nephrology Routine Consulting Provider: [facility] [place] [facility] Reason for consultation: Fluid overload/chf / oligouric Has provider been notified: No 05/23/24 20:50 Consult to Wound Care Routine Reason for consultation: stage I to coccyx DS: Diagnosis Discharge Diagnosis (1) Congestive heart failure: Status: Acute DS: Summary Hospital Course Hospital Course: History and physical as per admitting provider. This is a 78-year-old female with pertinent history of COPD not on home oxygen, insulin-dependent diabetes mellitus, CKD stage 3, PAD, mood disorder, gastroesophageal reflux disease, coronary artery disease, hypertension, paroxysmal atrial fibrillation on anticoagulation who presents to the emergency department for evaluation of dyspnea. Of note, patient was recently admitted for acute hypoxia due to CHF exacerbation and AFib with RVR and discharged on 05/17. Patient states she has been compliant with her medications since hospital discharge. Patient reports worsening dyspnea on the day of presentation. Also admits orthopnea. No fever, chills, chest pain, palpitations, abdominal pain, changes in urinary or bowel habits. In the emergency department, BNP found to be elevated and imaging with pulmonary vascular congestion, pulmonary edema and worsening bilateral pleural e ffusions. Patient was given IV Lasix in the ER acute respiratory failure with hypoxia due to Acute decompensated congestive heart failure with severe left ventricular systolic dysfunction/coronary d isease/atrial fibrillation. Appears euvolemic/no chest pain/shortness of breath improved hydralazine increased to 25 mg b.i.d., Isordil increased to 10 mg b.i.d., not on JOSE inhibitor due to kidney disease Recent echocardiogram 05/11/24: Severely reduced LV ejection fraction of 25-30% with underlying regional wall motion abnormalities suggestive of ischemic cardiomyopathy, [id number] mitral regurg Bumex 1 mg daily cardiology following - overall prognosis guarded Paroxysmal atrial fibrillation with frequent episodes of rapid ventricular response recently diagnosed with AFib finished amiodarone loading dose will place on amiodarone 200 mg daily continue metoprolol, Eliquis Acute on chronic kidney disease stage 3 likely due to ATN from hypotension rather then over-diuresis; renal function trending down Renal ultrasound showed normal right kidney, small size of left kidney, right renal artery is patent, left renal artery was not imaged due to poor visualization COPD continue home inhalers no acute exacerbation Diabetes mellitus type 2 continue home medications Hypertension continue hydralazine, isosorbide and metoprolol PAD/CAD Continue aspirin/atorvastatin Tobacco use disorder counseling done mood disorder/dementia - continue donepezil, trazodone, risperidone and DC nortriptyline Time Attestation Discharge Coordination Time (in mins): 40 Quality: Safe Use of Opioids Does Pt have an Active Cancer Diagnosis on the Problem List?: No Quality: Stroke Does the patient have a stroke diagnosis?: No Physical Exam Vital Signs: Vital Signs: Last Vital Signs Temp 97.7 F 05/28/24 11:17 Pulse 70 05/28/24 11:17 Resp 18 05/28/24 11:17 BP 147/67 H 05/28/24 11:17 Pulse Ox 96 05/28/24 11:17 O2 Del Method Room Air 05/28/24 11:17 O2 Flow Rate 2 05/27/24 11:13 FiO2 60 05/21/24 13:00 BMI result Body Mass Index 22.0 Appearing in no acute distress head is normocephalic atraumatic eyes pupils are PERRLA sclera is anicteric mouth throat mucous membranes are intact and moist neck is supple no lymphadenopathy, no JVD noted lung sounds are clear to auscultation heart regular rate rhythm, clear S1, S2 positive bowel sounds, abdomen is soft, nontender neuro patient is alert x3, no focal deficits DS: Data Data Completed and Pending Completed studies during hospitalization [Text1]: Procedures Dilation of Left External Iliac Artery with Intraluminal Device, using Drug- Coated Balloon, Percutaneous Approach (01/13/23) Insertion of Infusion Device into Superior Vena Cava, Percutaneous Approach (01/13/23) Ultrasonography of Superior Vena Cava, Guidance (01/13/23) Labs on day of discharge: Laboratory Results - last 24 hr 05/27/24 05/27/2405/28/24 16:12 20:20 07:19 WBC RBC Hgb Hct MCV MCH MCHC RDW Plt Count MPV Absolute Nucleated RBC Nucleated RBC % (auto) Sodium Potassium Chloride Carbon Dioxide Anion Gap BUN Creatinine Estim Creat Clear Calc Estimated GFR POC Glucose 300 H 201 H 170 H Random Glucose Calcium 05/28/24 05/28/24 07:25 11:36 WBC 6.8 RBC 2.82 L Hgb 8.1 L Hct 25.3 L MCV 89.7 MCH 28.7 MCHC 32.0 RDW 14.7 Plt Count 318 MPV 11.0 Absolute Nucleated RBC 0.000 Nucleated RBC % (auto) 0.0 Sodium 135 Potassium 4.3 Chloride 94 L Carbon Dioxide 33 H Anion Gap 12 BUN 24 H Creatinine 1.59 H Estim Creat Clear Calc 22.7 Estimated GFR 32 POC Glucose 154 H Random Glucose 159 H Calcium 9.7 Discharge Plan Discharge Anticipated Discharge Date/Time: 05/28/24 10:19 Patient Disposition: Xfer SNF Discharge Diagnosis: Acute respiratory failure with hypoxia Acute decompensated congestive heart failure Paroxysmal atrial fibrillation with rapid ventricular response LAURO on CKD stage 3 Referrals: Cosmo Salgado [Outside] - 1 Week Gene Sanchez MD [Primary Care Provider] - 1 Week Discharge Medications: New bumetanide 1 mg Tablet 1 mg PO DAILY Qty: 90 0RF Protocol: Hold for SBP< HOLD for SBP < : 90 hydralazine 50 mg Tablet 50 mg PO BID Qty: 60 0RF Protocol: Hold for SBP< HOLD for SBP < : 90 Continued insulin glargine [Lantus U-100 Insulin] 100 unit/mL solution 12 unit subcut BEDTIME fluticasone furoate-vilanterol [Breo Ellipta] 100-25 mcg/dose blister with device 1 ea INHALATION DAILY atorvastatin 40 mg Tablet 40 mg PO BEDTIME Qty: 30 0RF donepezil 5 mg Tablet 5 mg PO BEDTIME Qty: 30 0RF aspirin 81 mg Tablet,Delayed Release (Dr/Ec) 81 mg PO DAILY Qty: 30 0RF albuterol sulfate [Ventolin HFA] 90 mcg/actuation Hfa Aerosol Inhaler 2 puff inhalation QID PRN (Reason: Wheezing) Qty: 6.7 0RF trazodone 50 mg Tablet 50 mg PO BEDTIME PRN (Reason: Insomnia) Qty: 30 0RF omeprazole 40 mg Capsule,Delayed Release(Dr/Ec) 40 mg PO DAILY@0630 Qty: 30 0RF risperidone 0.5 mg Tablet 0.5 mg PO BID Qty: 60 0RF cholecalciferol (vitamin D3) 25 mcg (1,000 unit) capsule 25 mcg PO DAILY Qty: 30 0RF amiodarone 200 mg Tablet 400 mg PO BID Qty: 90 0RF Rx Instructions: Take amiodarone 400 mg (2 tabs 200mg tablet)twice daily for 6 more days end date 05/22 then Amiodarone 1 tablet 200 mg daily Eliquis 2.5 mg Tablet 2.5 mg PO BID Qty: 60 0RF isosorbide dinitrate 10 mg Tablet 10 mg PO BID Qty: 60 0RF Protocol: Hold for SBP< HOLD for SBP < : 90 metoprolol succinate 100 mg Tablet Extended Release 24 Hr 200 mg PO DAILY Qty: 30 0RF Protocol: Hold for SBP/HR < HOLD for SBP < : 90 HOLD for HR < : 60 guaifenesin 100 mg/5 mL Liquid 100 mg PO TID Qty: 473 0RF furosemide [Lasix] 20 mg tablet 20 mg PO DAILY Qty: 30 0RF Farxiga 5 mg tablet 5 mg PO DAILY Discontinued hydralazine 25 mg Tablet 25 mg PO BID Qty: 60 0RF Protocol: Hold for SBP< HOLD for SBP < : 90 Discharge Orders: Discharge Order (Routine); Ordered 05/28/24 Ordered By: Blaire Champagne Diet: Advance to usual diet Activity on Discharge: As tolerated Stand Alone Forms: Patient Portal Discharge page Print Language: Pashto Care Plan Goals: You have been started on amiodarone. Continue to take 400 mg daily until 05/22/2024 then take 200 mg daily Health Concerns: Acute respiratory failure with hypoxia Acute decompensated congestive heart failure Paroxysmal atrial fibrillation with rapid ventricular response LAURO on CKD stage 3 Plan of Treatment: Follow-up with primary care provider as needed Take all medications as prescribed Assessment: See discharge summary
== END 2024-05-28 14:12 | disposition skilled nursing facility (03) | DRG 291 ==
LOC: HO.ED 05-19 01:53 → HO.EDOVER 05-19 02:28 → HO.ICU 05-19 17:23 → HO.IMC 05-22 19:25
PROVIDERS: Hospitalist; Internal Medicine; Internal Medicine Pulmonary Disease; Nurse Practitioner Family; Physician Assistant; Physician Assistant Medical; Registered Nurse Community Health; Admitting Provider Student in an Organized Health Care Education/Training Program; Emergency Provider Emergency Medicine Emergency Medical Services; PCP Internal Medicine; Visit Provider Nurse Practitioner Acute Care
DX: I13.0 Hypertensive heart and chronic kidney disease with heart failure and stage 1 through stage 4 chronic kidney disease, or unspecified chronic kidney disease (principal); I50.23 Acute on chronic systolic (congestive) heart failure; N17.0 Acute kidney failure with tubular necrosis; J96.01 Acute respiratory failure with hypoxia; N18.30 Chronic kidney disease, stage 3 unspecified; J44.9 Chronic obstructive pulmonary disease, unspecified; I48.0 Paroxysmal atrial fibrillation; I44.7 Left bundle-branch block, unspecified; I25.5 Ischemic cardiomyopathy; I34.0 Nonrheumatic mitral (valve) insufficiency; F03.90 Unspecified dementia, unspecified severity, without behavioral disturbance, psychotic disturbance, mood disturbance, and anxiety; F39 Unspecified mood [affective] disorder; I16.0 Hypertensive urgency; E11.22 Type 2 diabetes mellitus with diabetic chronic kidney disease; L89.151 Pressure ulcer of sacral region, stage 1; I25.10 Atherosclerotic heart disease of native coronary artery without angina pectoris; Z20.822 Contact with and (suspected) exposure to COVID-19; Z79.4 Long term (current) use of insulin; Z79.51 Long term (current) use of inhaled steroids; Z79.82 Long term (current) use of aspirin; Z79.899 Other long term (current) drug therapy
CPT/HCPCS: 0241U; 36415; 36600; 71045; 80048; 80053; 82040; 82803; 82947; 83605; 83690; 83735; 83880; 84100; 84484; 85025; 85027; 85610; 87040; 93005; 93975; 94640; 97162; 97530; 99285; C1758; J0282; J0283; J0360; J1160; J1205; J1940; J2270; J2404; J2405; J3010; J3475; P9047

== ENCOUNTER → 2024-05-19 00:27 | Outpatient (BNV) | payer MEDICARE, MEDICAID, SELFPAY | PROVIDERS: Emergency Provider Emergency Medicine Emergency Medical Services; PCP Internal Medicine; Visit Provider Student in an Organized Health Care Education/Training Program | DX: N17.9 Acute kidney failure, unspecified (principal); I50.9 Heart failure, unspecified | CPT/HCPCS: 99223; 99232; 99499 ==

== ENCOUNTER 2024-05-19 02:07 | Outpatient (BNV) | payer MEDICARE, MEDICAID, SELFPAY | END 2024-05-23 18:16 | PROVIDERS: Admitting Provider Student in an Organized Health Care Education/Training Program; Emergency Provider Emergency Medicine Emergency Medical Services; PCP Internal Medicine; Visit Provider Internal Medicine Cardiovascular Disease | DX: I48.91 Unspecified atrial fibrillation (principal) | CPT/HCPCS: 93010 ==

== ENCOUNTER 2024-05-19 02:07 | Outpatient (BNV) | payer MEDICARE, MEDICAID, SELFPAY | END 2024-05-20 02:18 | PROVIDERS: Admitting Provider Student in an Organized Health Care Education/Training Program; Emergency Provider Emergency Medicine Emergency Medical Services; PCP Internal Medicine; Visit Provider Internal Medicine Cardiovascular Disease | DX: R94.31 Abnormal electrocardiogram [ECG] [EKG] (principal) | CPT/HCPCS: 93010 ==

== ENCOUNTER → 2024-05-19 02:07 | Outpatient (BNV) | payer MEDICARE, MEDICAID, SELFPAY | PROVIDERS: Admitting Provider Student in an Organized Health Care Education/Training Program; Emergency Provider Emergency Medicine Emergency Medical Services; PCP Internal Medicine; Visit Provider Nurse Practitioner Family | DX: N18.31 Chronic kidney disease, stage 3a (principal); I50.9 Heart failure, unspecified | CPT/HCPCS: 99222; 99232 ==

== ENCOUNTER → 2024-05-19 02:07 | Outpatient (BNV) | payer MEDICARE, MEDICAID, SELFPAY | PROVIDERS: Admitting Provider Student in an Organized Health Care Education/Training Program; Emergency Provider Emergency Medicine Emergency Medical Services; PCP Internal Medicine; Visit Provider Internal Medicine Cardiovascular Disease | DX: I50.9 Heart failure, unspecified (principal); I48.0 Paroxysmal atrial fibrillation; R09.89 Other specified symptoms and signs involving the circulatory and respiratory systems | CPT/HCPCS: 93010; 99223; 99233 ==

== ENCOUNTER → 2024-05-19 02:07 | Outpatient (BNV) | payer MEDICARE, MEDICAID, SELFPAY | PROVIDERS: Admitting Provider Student in an Organized Health Care Education/Training Program; Emergency Provider Emergency Medicine Emergency Medical Services; PCP Internal Medicine; Visit Provider Internal Medicine Pulmonary Disease | DX: I50.20 Unspecified systolic (congestive) heart failure (principal); J96.01 Acute respiratory failure with hypoxia; I48.0 Paroxysmal atrial fibrillation; N17.9 Acute kidney failure, unspecified; I25.10 Atherosclerotic heart disease of native coronary artery without angina pectoris | CPT/HCPCS: 99223; 99233; 99291; 99499 ==

== ENCOUNTER 2024-05-31 11:07 | Inpatient (IN) | payer MEDICARE, MEDICAID, SELFPAY ==
[2024-05-31] VITALS (14 sets, daily range): BP systolic 122–155; BP diastolic 4–99; PULSE 56–68; RESP 16–20; TEMP 36.3–36.8; O2SAT 92–100; BMI 22.1; BMI 21.6
--- NOTE | ~2024-05-31 | CT_ITS ---
EXAMINATION: CT ABDOMEN AND PELVIS WITHOUT CONTRAST CLINICAL INFORMATION: Anemia. COMPARISON: CT abdomen and pelvis dated 12/28/2023. TECHNIQUE: Multidetector volumetric imaging was performed from the superior aspect of the liver through the pubic symphysis. Sagittal and coronal reformatted images were obtained on the technologist's workstation. This CT examination was performed using dose optimization techniques as appropriate, variously including the following: *Automated exposure control *Adjustment of mA and/or kV according to patient size (this includes techniques or standardized protocols for targeted exams where dose is matched to indication/reason for exam; i.e. extremities or head) *Use of iterative reconstruction technique DLP: 3 mGy-cm FINDINGS: LUNG BASES: A large right pleural effusion and a small left pleural effusion are seen. There is mild adjacent bibasilar compressive atelectasis. LIVER, GALLBLADDER, AND BILIARY TREE: The liver is normal in size, shape, and attenuation. No focal hepatic lesion or biliary ductal dilatation is present. The gallbladder is unremarkable with no evidence of radiopaque gallstones, gallbladder wall thickening, or obvious pericholecystic inflammatory changes. PANCREAS: Unremarkable. SPLEEN: Unremarkable. ADRENAL GLANDS: The posterior limb of the left adrenal gland contains a 1.6 x 0.9 cm nodule (3:17). This is unchanged from 12/27/2021 (13:24), and it is considered benign, requiring no imaging follow-up. KIDNEYS AND URETERS: The bilateral kidneys are normal in size, shape, and attenuation. There is mild left renal cortical thinning. No hydronephrosis, hydroureter, or calculi seen. Arising exophytically from the lower pole of the left kidney (3:22), a 1.3 cm simple appearing cyst is seen, with precontrast Hounsfield value of 5.5 units. This requires no imaging follow-up. There is moderate bilateral perinephric stranding. BLADDER: Unremarkable. GASTROINTESTINAL TRACT: There is a large stool burden, suggesting possible constipation. No obstruction, free intraperitoneal air or abscess is seen. There is focal wall thickening of the proximal descending colon (3:48 and 7:120). There are a few adjacent shotty paracolic lymph nodes (i.e., 3:42). The vermiform appendix is unremarkable. ABDOMINAL WALL: No significant hernia is appreciated. A small subcutaneous injection hematoma is noted within the left anterior abdominal wall. LYMPH NODES: Normal. VASCULAR: There is moderately severe aortoiliac atherosclerotic calcification. A small calcified dissection flap is noted of the leftward abdominal aorta (3:25 and 6:64), which is of no acute clinical significance. No aneurysm is noted. PELVIC VISCERA: Surgically absent. OSSEOUS STRUCTURES: There is degenerative disc disease at L4-5. A small benign sclerotic bone island is noted within the left femoral head. No acute or aggressive osseous finding is noted. CT/CT abdomen pelvis wo IV con IMPRESSION: 1. There is focal wall thickening of the proximal ascending colon. This could be infectious, inflammatory or neoplastic in etiology. Consider further evaluation with a barium enema or colonoscopy. Tiny adjacent paracolic lymph nodes are noted. 2. Findings suggest possible constipation, without suresh bowel obstruction. 3. There is a mild left renal cortical thinning. 4. There is degenerative disc disease at L4-5. 5. A large right pleural effusion and a small left pleural effusion are noted. Fleischner guidelines were followed. Electronically signed by: Greg Birmingham MD 06/01/2024 10:46 PM [facility]OX[facility] LEONE
[2024-05-31 11:46] LABS: MANUAL DIFF FLAG NO
[2024-05-31 11:47] LABS: Basophils Percent Auto 0.4 % (0-2); Eosinophils Absolute Auto 0.2 X10*3/uL (0.0-0.4); Eosinophils Percent Auto 2.4 % (0-4); Hematocrit 21.6 % (37.0-47.0); Imm Gran Abs Auto 0.03 X10*3/uL (0.00-0.03); Imm Gran Pct Auto 0.3 % (0.0-0.4); Mean Corpuscular HGB Conc 32.4 g/dl (31.0-35.0); Mean Corpuscular Hemoglobin 29.2 pg (27.0-33.0); Mean Platelet Volume 10.9 fL (9.4-12.3); Monocytes Percent Auto 10.9 % (2-11); Neutrophils Absolute Auto 6.8 x10*3/uL (2.0-8.3); Platelet Count 272 X10*3/uL (160-400); Red Cell Distribution Width 14.6 % (11.0-16.0); White Blood Count 9.1 X10*3/uL (4.8-10.8)
[2024-05-31 11:54] LABS: INTERNATIONAL NORM RATIO 1.3 (0.9-1.1); Prothrombin Time 14.9 SEC (10.9-12.4)
[2024-05-31 12:19] LABS: Alanine Aminotransferase 12 U/L (0-31); Albumin Level 3.2 g/dL (3.5-5.0); Alkaline Phosphatase 79 U/L (39-117); Anion Gap 11 (12-20); Aspartate Amino Transferase 29 U/L (5-31); Bilirubin Total 0.4 mg/dL (0.0-1.0); Blood Urea Nitrogen 29 mg/dL (9-16); Calcium 8.6 mg/dL (8.4-10.2); Carbon Dioxide 30 mmol/L (22-29); Chloride 90 mmol/L (96-108); Creatinine Clr Calc Pharmacy 19.6; Estimated Glomerular Filt Rate 25; Glucose Random 390 mg/dL (60-115); Potassium 4.4 mmol/L (3.3-5.1); Sodium 127 mmol/L (135-145); Total Protein 5.7 g/dL (6.5-8.0)
--- NOTE | 2024-05-31 12:45 | PC.NURSE ---
patient permission given to update daughter marian. Marian call returned and updated on patient status and care plan. daughter upset with process of not being updated and states she wants regular updates and communication. Family educated on attempts to update as often as possible but sometimes its hard. Family acknowledges and will call back again later. patient ok with daughter receiving updates on status.
--- NOTE | 2024-05-31 12:47 | ED_ITS ---
HPI - General Adult General Chief complaint: General Medical Stated complaint: LOW H&H YESTERDAY FROM SNF PER EMS Time Seen by Provider: 05/31/24 12:03 Source: patient and EMS Mode of arrival: EMS Limitations: no limitations History of Present Illness ED Provider: Dr. Niyah Sousa HPI narrative: Patient comes to the emergency room from a residential facility. According to the patient, she was sent here because her hemoglobin is low. Patient states that she has no pain, no shortness of breath but feels very tired and fatigue. Patient states that she has trouble seeing and is unable to tell if she has been having black stool or blood per rectum. To her knowledge, she has not been told so by her caretakers at the facility. Patient takes Eliquis for CHF, she was recently discharged from this hospital 3 days ago for a CHF exacerbation. Related Data Home Medications ?Medication ?Instructions ?Recorded ?Confirmed dapagliflozin propanediol 5 mg 5 mg PO DAILY 07/31/23 05/19/24 tablet (Farxiga) fluticasone furoate 100 1 ea inhalation DAILY 04/16/24 05/19/24 mcg-vilanterol 25 mcg/dose inhalation powder (Breo Ellipta) insulin glargine 100 unit/mL 12 unit subcut BEDTIME 04/16/24 05/19/24 subcutaneous solution (Lantus U-100 Insulin) Previous Rx's ?Medication ?Instructions ?Recorded albuterol sulfate 90 mcg/actuation 2 puff inhalation QID PRN Wheezing 04/22/24 aerosol inhaler (Ventolin HFA) #6.7 grams aspirin 81 mg tablet,delayed 81 mg PO DAILY #30 tabs 04/22/24 release atorvastatin 40 mg tablet 40 mg PO BEDTIME #30 tabs 04/22/24 cholecalciferol (vitamin D3) 25 25 mcg PO DAILY #30 caps 04/22/24 mcg (1,000 unit) capsule donepezil 5 mg tablet 5 mg PO BEDTIME #30 tabs 04/22/24 omeprazole 40 mg capsule,delayed 40 mg PO DAILY@0630 #30 caps 04/22/24 release risperidone 0.5 mg tablet 0.5 mg PO BID #60 tabs 04/22/24 trazodone 50 mg tablet 50 mg PO BEDTIME PRN Insomnia #30 04/22/24 tabs amiodarone 200 mg tablet 400 mg (2 x 200 mg) PO BID #90 tabs 05/17/24 apixaban 2.5 mg tablet (Eliquis) 2.5 mg PO BID #60 tabs 05/17/24 furosemide 20 mg tablet (Lasix) 20 mg PO DAILY #30 tabs 05/17/24 guaifenesin 100 mg/5 mL oral liquid 100 mg (5 mL) PO TID #473 mL 05/17/24 isosorbide dinitrate 10 mg tablet 10 mg PO BID #60 tabs 05/17/24 metoprolol succinate 100 mg 200 mg PO DAILY #30 tabs 05/17/24 tablet,extended release 24 hr bumetanide 1 mg tablet 1 mg PO DAILY #90 tabs 05/28/24 hydralazine 50 mg tablet 50 mg PO BID #60 tabs 05/28/24 Allergies Allergy/AdvReac Type Severity Reaction Status Date / Time silver Allergy Unknown SKIN TEARS Verified 05/31/24 11:28 [From [employer] MESH] TAPE,PAPER Allergy Mild Itching Uncoded 05/31/24 11:28 Review of Systems 2 Review of Systems: Constitutional : No Weight loss, No Fever, No Chills, No Night Sweats, complaining of fatigue ENT/Mouth : No Hearing loss, No Ear Pain, No Nasal Congestion, No Sinus Pain, No Hoarseness, No sore throat, No Rhinorrhea, No Swallowing Difficulty Eyes: No eye pain or swelling Cardiovascular : No Chest Pain, No SOB, No Dyspnea on Exertion, No Orthopnea, No Edema, No Palpitations Respiratory : No Cough, No Sputum, No Wheezing, No Smoke Exposure, No Dyspnea Gastrointestinal : No Nausea, No Vomiting, No Diarrhea, No Constipation, No abdominal Pain, No Hematochezia, No Melena Genitourinary : no irregular bleeding, No Dysuria, No Urinary Frequency, No Hematuria, No Urinary Incontinence, No Urgency, No Flank Pain, No Urinary Flow Changes, No Hesitancy Musculoskeletal : No joint pain, No Myalgias, No Joint Swelling Skin : No Skin Lesions, No rash Neuro : No Weakness, No Numbness, No Paresthesias, No Loss of Consciousness, No Dizziness, No Headache Psych : No Anxiety/Panic, No Depression, No SI/HI/AH/VH, No Social Issues, Heme/Lymph: Patient told that she had a low H&H Endocrine : No Polyuria, No Polydipsia, No Temperature Intolerance PMFSH Past Medical History Medical History CKD (chronic kidney disease) stage 3, GFR 30-59 ml/min PAD (peripheral artery disease) Diabetic ketoacidosis Major depressive disorder, recurrent, moderate Adjustment disorder CAD (coronary artery disease) GERD (gastroesophageal reflux disease) HTN (hypertension) Carotid artery occlusion Diabetes Hiatal hernia GERD (gastroesophageal reflux disease) Surgical History History of esophagogastroduodenoscopy (EGD) Family History Family History Father No problems noted. Mother No problems noted. Social History Social History Household Members: None Housing: Unknown / Unable to assess Do you presently have visiting nurse or other home services: Yes Alcohol intake: never Comment: patient refuses to have person standby when using bathroom Patient Tobacco Use Status: Former Tobacco user Tobacco use type: Cigarette Cigarette Packs Per Day: 1.5 Cigarettes Per Day: 30.0 Years Smoked: 40 Second Hand Smoke Exposure: No Substance Use Type: Marijuana Advance Directives: Yes Advance Directives on File: Yes Advance Directives Date on File: 01/14/23 service: No Current occupational status: retired Sexual orientation: Straight/Heterosexual Physical Exam ED Vital Signs: Vital Signs - 24 hr 05/31/24 11:26 05/31/24 13:23 05/31/24 13:49 Temperature 98.3 F 98.3 F 98.1 F Pulse Rate 68 62 62 Respiratory Rate 20 17 18 Blood Pressure 131/68 136/43 L 140/46 H Pulse Oximetry 100 Oxygen Delivery Method Nasal Cannula BMI result Body Mass Index 22.1 Const Other: Appearance: Alert. Oriented X3. No acute distress. Seems tired and weak Eyes: Pupils equal, round and reactive to light. ENT: Pharynx normal. Neck: Normal inspection. Neck supple. No lymph nodes noted. No crepitus CVS: Normal heart rate and rhythm. Pulses normal. Normal S1 and S2 Respiratory: No respiratory distress. Breath sounds normal. No Wheezing. No rales Abdomen: Soft and nontender. No rigidity. No distention. On digital rectal exam, brown stool Skin: Skin warm and dry. Normal skin color. Normal skin turgor. Multiple ecchymosis in upper extremities Extremities: No lower extremity edema. No Lacerations. No Rash Neuro: Oriented X 3. No motor deficit. No sensory deficit. Moving all extremities. No slurred speech. CN 2 through 12 grossly intact Psych: calm, cooperative, normal affect Course Course Course Narrative: Patient is agreeable to blood transfusion. Patient states that she has had them in the past, is aware of the risks versus benefits, agrees to proceed with a blood transfusion. Consent signed Medications Administered Discontinued Medications Generic Name Dose Route Start Last Admin Trade Name Freq PRN Reason Stop Dose Admin Insulin Human Regular 5 unit 05/31/24 12:44 05/31/24 13:00 Insulin Regular, Human 100 Unit/Ml 10 Ml Vial IVPUSH 05/31/24 12:45 5 unit ONCE ONE Administration Medical Decision Making Medical Decision Making [facility] Narrative: My interpretation of labs: Patient's hemoglobin 7.0, baseline above 9. Patient's sodium is 127, corrected sodium for hyperglycemia likely within normal limits, glucose 390. Patient has chronic kidney disease, creatinine 1.93, close to baseline. Patient's occult stools test was heme-positive -patient's troponin and BNP at baseline -patient getting transfused -discussed the patient with the hospitalist team, patient being admitted Differential Diagnosis Differential Diagnoses: The differential diagnosis associated with the presentation includes (Chronic anemia, iron deficiency anemia, GI bleed) Admission/Observation Consideration of admission/observation: Escalation of care including admission/observation considered Consult Healthcare Provider Management of the patient was discussed with: Hospitalist Lab Data [facility] Lab Attestation statement: I reviewed the patient's lab results. 05/31/24 11:42 05/31/24 11:42 Labs: Lab Results 05/31/24 05/31/24 05/31/24 Range/Units 11:42 12:02 12:42 WBC 9.1 (4.8-10.8) X10*3/uL RBC 2.40 L (4.20-5.50) X10*6/uL Hgb 7.0 L* (12.0-16.0) g/dl Hct 21.6 L (37.0-47.0) % MCV 90.0 (80.0-98.0) fL MCH 29.2 (27.0-33.0) pg MCHC 32.4 (31.0-35.0) g/dl RDW 14.6 (11.0-16.0) % Plt Count 272 (160-400) X10*3/uL MPV 10.9 (9.4-12.3) fL Immature Gran % (Auto) 0.3 (0.0-0.4) % Neut % (Auto) 75.0 H (45-73) % Lymph % (Auto) 11.0 L (20-40) % Wayne % (Auto) 10.9 (2-11) % Eos % (Auto) 2.4 (0-4) % Baso % (Auto) 0.4 (0-2) % Lymph # (Auto) 1.0 L (1.2-4.9) X10*3/uL Wayne # (Auto) 1.0 (0.1-1.2) X10*3/uL Eos # (Auto) 0.2 (0.0-0.4) X10*3/uL Baso # (Auto) 0.0 (0.0-0.2) X10*3/uL Abs Immat Gran (auto) 0.03 (0.00-0.03) X10*3/uL Absolute Neuts (auto) 6.8 (2.0-8.3) x10*3/uL Absolute Nucleated RBC 0.000 (0.0-0.012) X10*3/uL Nucleated RBC % (auto) 0.0 (0.0-0.2) /100WBC PT 14.9 H D (10.9-12.4) SEC INR 1.3 H (0.9-1.1) Sodium 127 L (135-145) mmol/L Potassium 4.4 (3.3-5.1) mmol/L Chloride 90 L (96-108) mmol/L Carbon Dioxide 30 H (22-29) mmol/L Anion Gap 11 L (12-20) BUN 29 H (9-16) mg/dL Creatinine 1.93 H (0.5-1.4) mg/dL Estim Creat Clear Calc 19.6 Estimated GFR 25 Random Glucose 390 H* (60-115) mg/dL Calcium 8.6 D (8.4-10.2) mg/dL Total Bilirubin 0.4 (0.0-1.0) mg/dL AST 29 (5-31) U/L ALT 12 (0-31) U/L Alkaline Phosphatase 79 (39-117) U/L Troponin I High Sens 37.9 H (<3.5-17.0) ng/L B-Natriuretic Peptide 813 H (<100) pg/mL Total Protein 5.7 L (6.5-8.0) g/dL Albumin 3.2 L (3.5-5.0) g/dL Beta-Hydroxybutyrate 0.12 (0.02-0.27) mmol/L Stool Occult Blood POSITIVE (NEGATIVE) Blood Type AB Positive Antibody Screen NEGATIVE Crossmatch See Detail Critical Care Time Critical Care Time Critical Care Time: Yes Total Critical Care Time: 60 Attestation: I have personally provided critical care time. Time includes review of lab data, radiology results, discussion with consultants, and monitoring for potential decompensation. Intervention performed as documented. Discharge Plan Discharge Clinical Impression: Acute GI bleeding, Anemia, Hyperglycemia Patient Disposition: Admitted As Inpatient Prescriptions: No Action bumetanide 1 mg Tablet 1 mg PO DAILY Qty: 90 0RF Protocol: Hold for SBP< HOLD for SBP < : 90 hydralazine 50 mg Tablet 50 mg PO BID Qty: 60 0RF Protocol: Hold for SBP< HOLD for SBP < : 90 insulin glargine [Lantus U-100 Insulin] 100 unit/mL solution 12 unit subcut BEDTIME fluticasone furoate-vilanterol [Breo Ellipta] 100-25 mcg/dose blister with device 1 ea INHALATION DAILY atorvastatin 40 mg Tablet 40 mg PO BEDTIME Qty: 30 0RF donepezil 5 mg Tablet 5 mg PO BEDTIME Qty: 30 0RF aspirin 81 mg Tablet,Delayed Release (Dr/Ec) 81 mg PO DAILY Qty: 30 0RF albuterol sulfate [Ventolin HFA] 90 mcg/actuation Hfa Aerosol Inhaler 2 puff inhalation QID PRN (Reason: Wheezing) Qty: 6.7 0RF trazodone 50 mg Tablet 50 mg PO BEDTIME PRN (Reason: Insomnia) Qty: 30 0RF omeprazole 40 mg Capsule,Delayed Release(Dr/Ec) 40 mg PO DAILY@0630 Qty: 30 0RF risperidone 0.5 mg Tablet 0.5 mg PO BID Qty: 60 0RF cholecalciferol (vitamin D3) 25 mcg (1,000 unit) capsule 25 mcg PO DAILY Qty: 30 0RF amiodarone 200 mg Tablet 400 mg PO BID Qty: 90 0RF Rx Instructions: Take amiodarone 400 mg (2 tabs 200mg tablet)twice daily for 6 more days end date 05/22 then Amiodarone 1 tablet 200 mg daily Eliquis 2.5 mg Tablet 2.5 mg PO BID Qty: 60 0RF isosorbide dinitrate 10 mg Tablet 10 mg PO BID Qty: 60 0RF Protocol: Hold for SBP< HOLD for SBP < : 90 metoprolol succinate 100 mg Tablet Extended Release 24 Hr 200 mg PO DAILY Qty: 30 0RF Protocol: Hold for SBP/HR < HOLD for SBP < : 90 HOLD for HR < : 60 guaifenesin 100 mg/5 mL Liquid 100 mg PO TID Qty: 473 0RF furosemide [Lasix] 20 mg tablet 20 mg PO DAILY Qty: 30 0RF Farxiga 5 mg tablet 5 mg PO DAILY Print Language: Ecuadorean
[2024-05-31 12:48] LABS: OBS Int Ctl Valid YES; OBS1 POSITIVE (NEGATIVE)
[2024-05-31 12:49] LABS: Beta-Hydroxybutyrate 0.12 mmol/L (0.02-0.27)
[2024-05-31] MEDS: Insulin Regular, Human 100 UNIT/ML 10 ML VIAL IVPUSH (13:00)
--- NOTE | 2024-05-31 13:37 | PC.NURSE ---
patient endorsed cramping like sensation to LAC IV site where transfusion infusing. blood transfusion paused and new IV placed to R lateral AC with +BR and flushed without complications. transfusion moved to new IV site. No complaints at this time.
[2024-05-31 13:42] LABS: Troponin-I High Sensitivity 37.9 ng/L (<3.5-17.0)
[2024-05-31 13:46] LABS: B Type Natriuretic Peptide 813 pg/mL (<100)
[2024-05-31 14:44] LABS: Glucose, Whole Blood 347 mg/dL (60-115)
--- NOTE | 2024-05-31 15:23 | P.HPHOSP_ITS ---
History of Present Illness Date of Service: 05/31/24 Attending physician on admission: Clem Purvis Chief Complaint: anemia This is a 78-year-old female with 2 recent admissions for CHF exacerbation who was sent to the emergency department from rehab due to low H/H. Patient was discharged to rehab facility on May 28. She has been feeling fatigued and weak. She denies shortness of breath. She had her H/H repeated at the facility and it was noted to be low she was therefore sent to the emergency department for evaluation. H/H 7/21.6, down from 8.1/25.3 on 05/28. Her stool was guiac positive. She has poor vision due to cataracts and has not seen any dark or bloody stools and she states that the people at the facility did not mentioned to her that they noted blood in her stool either. She denies any abdominal pain. She does take blood thinner for atrial fibrillation. 2 units of blood were ordered and transfusion started in the emergency department. She was also noted to be hyperglycemia, she said she has not been given a diabetic diet at rehab and he blood sugar has been high while there. sodium was low at 127 due to hyperglycemia. She will be admitted for further management of symptomatic anemia Review of Systems 2 Review of Systems: Yes all other systems are reviewed and are negative Constitutional: Constitutional: Denies chills and Denies fever(s) Cardiovascular: Cardiovascular: Denies chest pain and Denies palpitations Respiratory: Respiratory: Denies cough Gastrointestinal: Gastrointestinal: Denies abdominal pain, Denies nausea and Denies vomiting Endocrine: Endocrine: Denies palpitations [facility] Medical History CKD (chronic kidney disease) stage 3, GFR 30-59 ml/min PAD (peripheral artery disease) Diabetic ketoacidosis Major depressive disorder, recurrent, moderate Adjustment disorder CAD (coronary artery disease) GERD (gastroesophageal reflux disease) HTN (hypertension) Carotid artery occlusion Diabetes Hiatal hernia GERD (gastroesophageal reflux disease) Family History Father No problems noted. Mother No problems noted. Surgical History History of esophagogastroduodenoscopy (EGD) Social History Household Members: None Housing: Unknown / Unable to assess Do you presently have visiting nurse or other home services: Yes Alcohol intake: never Comment: patient refuses to have person standby when using bathroom Patient Tobacco Use Status: Former Tobacco user Tobacco use type: Cigarette Cigarette Packs Per Day: 1.5 Cigarettes Per Day: 30.0 Years Smoked: 40 Smoked in Last 30 Days: No Second Hand Smoke Exposure: No Use of substances other than those prescribed or required for medical reasons: No Substance Use Type: Marijuana Advance Directives: Yes Advance Directives on File: Yes Advance Directives Date on File: 01/14/23 service: No Current occupational status: retired Sexual orientation: Straight/Heterosexual Meds Allergies Allergy/AdvReac Type Severity Reaction Status Date / Time silver Allergy Unknown SKIN TEARS Verified 05/31/24 11:28 [From [employer] AG MESH] TAPE,PAPER Allergy Mild Itching Uncoded 05/31/24 11:28 Active Medications: Current Medications Acetaminophen (Acetaminophen 325 Mg Tablet) 650 mg PO Q6H PRN PRN Reason: Pain, Mild (Pain Scale 1-3), fever or headache Glucose (Glucose Gel 15 Gm Gel..Gram.) 15 gm PO Q15M PRN; Protocol PRN Reason: per Hypoglycemia Standing Ord. Dextrose (D10) 250 mls @ 750 mls/hr IV Q15M PRN; Protocol PRN Reason: per Hypoglycemia Standing Ord. Insulin Human Lispro (Insulin Lispro 100 Unit/Ml 3 Ml Vial) [facility]; Protocol Melatonin (Melatonin 3 Mg Tablet) 6 mg PO BEDTIME PRN PRN Reason: Insomnia Polyethylene Glycol (Polyethylene Glycol 3350 17 Gm Powd.Pack) 17 gm PO DAILY PRN PRN Reason: Constipation Sodium Chloride (0.9 % Sodium Chloride Flush 3 Ml Syringe) 3 ml IVFLUSH [facility] Home Medications ?Medication ?Instructions ?Recorded ?Confirmed ?Last Taken ?Type dapagliflozin propanediol 5 mg 5 mg PO DAILY 07/31/23 05/31/24 05/18/24 History tablet (Farxiga) fluticasone furoate 100 1 ea inhalation DAILY 04/16/24 05/31/24 05/18/24 History mcg-vilanterol 25 mcg/dose inhalation powder (Breo Ellipta) insulin glargine 100 unit/mL 12 unit subcut BEDTIME 04/16/24 05/31/24 05/09/24 History subcutaneous solution (Lantus U-100 Insulin) acetaminophen 325 mg tablet 650 mg PO Q4H PRN Pain 05/31/24 05/31/24 Unknown History acetaminophen 325 mg tablet 650 mg PO Q6H PRN Fever 05/31/24 05/31/24 Unknown History albuterol sulfate 90 mcg/actuation 2 puff inhalation Q4H PRN Wheezing 05/31/24 05/31/24 Unknown History aerosol inhaler amiodarone 200 mg tablet 200 mg PO DAILY 05/31/24 05/31/24 Unknown History bisacodyl 10 mg rectal suppository 10 mg DC DAILY PRN Constipation 05/31/24 05/31/24 Unknown History dextrose 40 % oral gel 10 g PO Q15M PRN BG< 70 05/31/24 05/31/24 Unknown History glucagon 1 mg solution for 1 mg subcut Q15M PRN BG Less then 05/31/24 05/31/24 Unknown History injection 70 magnesium hydroxide 400 mg/5 mL 30 ml PO DAILY PRN Constipation 05/31/24 05/31/24 Unknown History oral suspension (Milk of Magnesia) polyethylene glycol 3350 17 gram 17 g PO DAILY PRN Constipation 05/31/24 05/31/24 Unknown History oral powder packet sodium phosphates 19 gram-7 118 ml DC DAILY PRN 05/31/24 05/31/24 Unknown History gram/118 mL enema (Fleet Enema) CONSTIPATION/NO RESULT FROM DULCOLAX Physical Exam 2 Vital Signs and Narrative: Vital Signs: Last Vital Signs Temp 98.1 F 05/31/24 13:49 Pulse 62 05/31/24 13:49 Resp 18 05/31/24 13:49 BP 140/46 H 05/31/24 13:49 Pulse Ox 100 05/31/24 11:26 O2 Del Method Nasal Cannula 05/31/24 11:26 Oxygen Flow Rate 4 05/31/24 11:26 BMI result Body Mass Index 22.1 Const: Other: chronically ill appearing General: comfortable, no acute distress, alert and awake Nutritional Appearance: average body habitus Orientation/consciousness: patient oriented x3 Resp: Effort & Inspection: normal respiratory effort, able to speak in complete sentences, no respiratory distress and no use of accessory muscles A uscultation: clear to auscultation bilaterally Cardio: Rate: regular rate GI: Other: +BS no guarding, no rebound Inspection: No distended Palpation (GI): Soft to palpation and nontender Neuro: General: patient oriented x3, moves all extremities and CN's II-XI intact bilaterally Extrem: General: Yes no pedal edema Results Labs 05/31/24 11:42 05/31/24 11:42 Labs: Laboratory Results - last 24 hr 05/31/24 05/31/24 05/31/24 11:42 12:02 12:42 MCV 90.0 MCH 29.2 MCHC 32.4 RDW 14.6 Plt Count 272 MPV 10.9 Immature Gran % (Auto) 0.3 Neut % (Auto) 75.0 H Lymph % (Auto) 11.0 L [place] % (Auto) 10.9 Eos % (Auto) 2.4 Baso % (Auto) 0.4 Lymph # (Auto) 1.0 L [place] # (Auto) 1.0 Eos # (Auto) 0.2 Baso # (Auto) 0.0 Abs Immat Gran (auto) 0.03 Absolute Neuts (auto) 6.8 Absolute Nucleated RBC 0.000 Nucleated RBC % (auto) 0.0 PT 14.9 H D INR 1.3 H Anion Gap 11 L Estim Creat Clear Calc 19.6 Estimated GFR 25 POC Glucose Random Glucose 390 H* Calcium 8.6 D Total Bilirubin 0.4 AST 29 ALT 12 Alkaline Phosphatase 79 Troponin I High Sens 37.9 H B-Natriuretic Peptide 813 H Total Protein 5.7 L Albumin 3.2 L Beta-Hydroxybutyrate 0.12 Stool Occult Blood POSITIVE Blood Type AB Positive Antibody Screen NEGATIVE Crossmatch See Detail 05/31/24 14:40 MCV MCH MCHC RDW Plt Count MPV Immature Gran % (Auto) Neut % (Auto) Lymph % (Auto) Screven % (Auto) Eos % (Auto) Baso % (Auto) Lymph # (Auto) Screven # (Auto) Eos # (Auto) Baso # (Auto) Abs Immat Gran (auto) Absolute Neuts (auto) Absolute Nucleated RBC Nucleated RBC % (auto) PT INR Anion Gap Estim Creat Clear Calc Estimated GFR POC Glucose 347 H Random Glucose Calcium Total Bilirubin AST ALT Alkaline Phosphatase Troponin I High Sens B-Natriuretic Peptide Total Protein Albumin Beta-Hydroxybutyrate Stool Occult Blood Blood Type Antibody Screen Crossmatch Assessment and Plan (1) Anemia: Status: Acute Plan This is a 78 year old female with a history of COPD, HFrEF, paroxysmal atrial fibrillation on Eliquis, CKD, diabetes, coronary artery disease, 2 recent admissions for atrial fibrillation with rapid ventricular response and CHF discharged to rehab on May 28 and sent back to the emergency department today for worsening anemia Symptomatic anemia 2U of blood ordered in ED, will give 20 IV lasix in between units to prevent fluid overload follow CBC IV PPI GI consult hold Eliquis, ASA for now LAURO on CKD3 renal had improved on discharge but now back up hold bumex for now hold nephrotoxic meds follow BMP paroxysmal atrial fibrillation continue amiodorone, metoprolol 100 qd (on med list has 200qd) HR controlled hold Eliquis due to above HFrEF appears euvolemic at this time. BNP same as last admission continue hydralaine, isordil hold bumex for increased renal function, consider resuming in am monitor fluid status closely COPD continue home inhalers no acute exacerbation Diabetes mellitus type 2 with hyperglycemia hyperglycemia due to dietary indiscretion - pt reports was not getting a diabetic diet at SNF hold farxiga ADA diet Lantus 10U, on 12 at baseline, uptitrate prn SSI, follow POCs Hypertension continue hydralazine, isosorbide and metoprolol PAD/CAD Continue aspirin/atorvastatin dvt ppx - mechanical devices due to anemia code status - patient wants to be DNR/DNI - she states that her daughter her HCP is aware of her wishes Quality Stroke Does the patient have a stroke diagnosis?: No VTE Prior VTE?: No VTE Risk Level:: Medical - moderate - high VTE Device Contraindication: N/A - Device Ordered VTE Drug Contraindication: Treatment Not Indicated
[2024-05-31] MEDS: Pantoprazole Sodium 40 MG/10 ML VIAL IVPUSH (15:41)
--- NOTE | 2024-05-31 15:55 | PHA.MEDREC ---
Addendum entered by Noelle Gordon RPh 05/31/24 16:17: MED REVIEWED BY [facility] Original Note: Pharmacy Consult ? Medication Reconciliation Pharmacy has completed the medication reconciliation.Confirmed medications with list provided by Cosmo Salgado. In discharge packet from on 05/17, the Dr stopped the Amlodipine 10mg, Lisionpril 10mg, Metoprolol Tartrate 100mg, Nategline 60mg, Nortriptyline 25mg and Tradjenta 5mg.
--- NOTE | 2024-05-31 17:21 | P.CNGI_ITS ---
History of Present Illness Data of Consult Service Date: 05/31/24 Primary Care Provider: Gene Sanchez MD HPI Reason for consult: anemia 78-year-old f w/ hx of COPD not on home oxygen, insulin-dependent diabetes mellitus, CKD stage 3, PAD, mood disorder, gastroesophageal reflux disease, coronary artery disease, hypertension, paroxysmal atrial fibrillation on anticoagulation with CHF who I am seeing for assessment of anemia Patient was in rehab and was c/o fatigue and weakness, she had hgb check and was low and sent to ED. She denied melena, rectal bleeding, nose bleeds, blood in urine, No abdominal pain, nausea or vomiting, no SOB or chest pain. She does admit to more bruising on arms recently. due to blood draws from 2 other recent admissions for CHF in the last 1-2 months LABS: H/H 7/.6, down from 8.1/25.3 on 05/28 2 units of blood were ordered and transfusion started in the emergency department she is on omeprazole at baseline, Patient had an EGD on 05/05/2019, which showed no ulcer or gastritis but there was evidence of a small hiatal hernia Review of Systems 2 Review of Systems: Constitutional : No Weight loss, No Fever, No Chills ENT/Mouth : No sore throat, No Rhinorrhea Eyes: No Swelling, No Redness Cardiovascular : No Chest Pain, No SOB, No Edema Respiratory : No Cough, No Sputum, No Wheezing Gastrointestinal : see HPI Genitourinary : NO Dysuria, No Urinary Frequency, No Hematuria, No Urgency Musculoskeletal : + joint pain, No Myalgias, No Joint Swelling Skin : No Skin Lesions, No rash Neuro : No Weakness, No Numbness, No Dizziness, No Headache Psych : No Anxiety/Panic, No Depression Heme/Lymph: No Bruising, No Lymphadenopathy Endocrine : No Polyuria, No Polydipsia All other systems reviewed and are negative. [facility] Past Medical History Medical History CKD (chronic kidney disease) stage 3, GFR 30-59 ml/min PAD (peripheral artery disease) Diabetic ketoacidosis Major depressive disorder, recurrent, moderate Adjustment disorder CAD (coronary artery disease) GERD (gastroesophageal reflux disease) HTN (hypertension) Carotid artery occlusion Diabetes Hiatal hernia GERD (gastroesophageal reflux disease) Family History Family History Father No problems noted. Mother No problems noted. Surgical History Surgical History History of esophagogastroduodenoscopy (EGD) Social History Social History Household Members: None Housing: Apartment Do you presently have visiting nurse or other home services: Yes Alcohol intake: never Comment: patient refuses to have person standby when using bathroom Patient Tobacco Use Status: Former Tobacco user Tobacco use type: Cigarette Cigarette Packs Per Day: 1.5 Cigarettes Per Day: 30.0 Years Smoked: 40 Smoked in Last 30 Days: No Second Hand Smoke Exposure: No Use of substances other than those prescribed or required for medical reasons: No Substance Use Type: Marijuana Currently Displaying Signs/Symptoms of Drug Intoxication Withdrawal: No Any prior treatment program specific to substance use: No Have you been hit, kicked, punched, or otherwise hurt by someone within the past year? If so, by whom?: No Do you feel safe in your current relationship?: No Current Relationship Is there a partner from a previous relationship who is making you feel unsafe now?: No Are you made to feel afraid or neglected: No Advance Directives: Yes Advance Directives on File: Yes Advance Directives Date on File: 01/14/23 Do you have a plan to hurt others: No Plan Recently lost weight without trying: No How much weight loss: Not applicable Eating poorly because of decreased appetite: Yes Nutrition screen score: 1 Nutrition Risks: No Nutritional Risk Patient : No : No Poor oral hygiene: No service: No Current occupational status: retired Sexual orientation: Straight/Heterosexual Meds Allergies Allergy/AdvReac Type Severity Reaction Status Date / Time silver Allergy Unknown SKIN TEARS Verified 05/31/24 11:28 [From [employer]GADER[employer] AG MESH] TAPE,PAPER Allergy Mild Itching Uncoded 05/31/24 11:28 Active Medications: Current Medications Acetaminophen (Acetaminophen 325 Mg Tablet) 650 mg PO Q6H PRN PRN Reason: Pain, Mild (Pain Scale 1-3), fever or headache Albuterol Sulfate (Albuterol Sulfate 90 Mcg 8 Gm Inhaler) 2 puff INHALE Q4H PRN PRN Reason: Wheezing Amiodarone HCl (Amiodarone Hcl 200 Mg Tablet) 200 mg PO DAILY [facility] Atorvastatin Calcium (Atorvastatin Calcium 40 Mg Tablet) 40 mg PO BEDTIME [facility] Bisacodyl (Bisacodyl 10 Mg Supp.Rect) 10 mg PA DAILY PRN PRN Reason: Constipation Donepezil HCl (Donepezil Hcl 5 Mg Tablet) 5 mg PO BEDTIME [facility] Fluticasone/Vilanterol (Fluticasone/Vilanterol 100/25 Blst.W.Dev) 1 puff INHALE RDAILY [facility] Glucose (Glucose Gel 15 Gm Gel..Gram.) 15 gm PO Q15M PRN; Protocol PRN Reason: per Hypoglycemia Standing Ord. Guaifenesin (Guaifenesin 200 Mg/10 Ml 10 Ml Liquid) 5 ml PO TID [facility] Hydralazine HCl (Hydralazine Hcl 50 Mg Tablet) 50 mg PO BID [facility]; Protocol Dextrose (D10) 250 mls @ 750 mls/hr IV Q15M PRN; Protocol PRN Reason: per Hypoglycemia Standing Ord. Insulin Glargine (Insulin Glargine,Hum.Rec.Anlog 100 Unit/Ml 10 Ml Vial) 10 unit SUBCUT BEDTIME [facility] Insulin Human Lispro (Insulin Lispro 100 Unit/Ml 3 Ml Vial) 0 unit SUBCUT QIDACHS [facility]; Protocol Isosorbide Dinitrate (Isosorbide Dinitrate 10 Mg Tablet) 10 mg PO BID [facility]; Protocol Melatonin (Melatonin 3 Mg Tablet) 6 mg PO BEDTIME PRN PRN Reason: Insomnia Metoprolol Succinate (Metoprolol Succinate Er 100 Mg Tab.Er.24h) 100 mg PO DAILY [facility]; Protocol Pantoprazole Sodium (Pantoprazole Sodium 40 Mg/10 Ml Vial) 40 mg IVPUSH DAILY@0630 [facility] Last Admin: 05/31/24 15:41 Dose: 40 mg Polyethylene Glycol (Polyethylene Glycol 3350 17 Gm Powd.Pack) 17 gm PO DAILY PRN PRN Reason: Constipation Risperidone (Risperidone 0.5 Mg Tablet) 0.5 mg PO BID [facility] Sodium Chloride (0.9 % Sodium Chloride Flush 3 Ml Syringe) 3 ml IVFLUSH QSHIFT [facility] Last Admin: 05/31/24 15:41 Dose: Not Given Trazodone HCl (Trazodone Hcl 50 Mg Tablet) 50 mg PO BEDTIME PRN PRN Reason: Insomnia Vitamin D (Cholecalciferol (Vitamin D3) 25 Mcg Tablet) 25 mcg PO DAILY [facility] Home Medications ?Medication ?Instructions ?Recorded ?Confirmed ?Last Taken ?Type dapagliflozin propanediol 5 mg 5 mg PO DAILY 07/31/23 05/31/24 05/18/24 History tablet (Farxiga) fluticasone furoate 100 1 ea inhalation DAILY 04/16/24 05/31/24 05/18/24 History mcg-vilanterol 25 mcg/dose inhalation powder (Breo Ellipta) insulin glargine 100 unit/mL 12 unit subcut BEDTIME 04/16/24 05/31/24 05/09/24 History subcutaneous solution (Lantus U-100 Insulin) acetaminophen 325 mg tablet 650 mg PO Q4H PRN Pain 05/31/24 05/31/24 Unknown History acetaminophen 325 mg tablet 650 mg PO Q6H PRN Fever 05/31/24 05/31/24 Unknown History albuterol sulfate 90 mcg/actuation 2 puff inhalation Q4H PRN Wheezing 05/31/24 05/31/24 Unknown History aerosol inhaler amiodarone 200 mg tablet 200 mg PO DAILY 05/31/24 05/31/24 Unknown History bisacodyl 10 mg rectal suppository 10 mg PA DAILY PRN Constipation 05/31/24 05/31/24 Unknown History dextrose 40 % oral gel 10 g PO Q15M PRN BG< 70 05/31/24 05/31/24 Unknown History glucagon 1 mg solution for 1 mg subcut Q15M PRN BG Less then 05/31/24 05/31/24 Unknown History injection 70 magnesium hydroxide 400 mg/5 mL 30 ml PO DAILY PRN Constipation 05/31/24 05/31/24 Unknown History oral suspension (Milk of Magnesia) polyethylene glycol 3350 17 gram 17 g PO DAILY PRN Constipation 05/31/24 05/31/24 Unknown History oral powder packet sodium phosphates 19 gram-7 118 ml PA DAILY PRN 05/31/24 05/31/24 Unknown History gram/118 mL enema (Fleet Enema) CONSTIPATION/NO RESULT FROM DULCOLAX Physical Exam 2 Vital Signs: Vital Signs: Last Vital Signs Temp 98.2 F 05/31/24 16:26 Pulse 61 05/31/24 16:26 Resp 20 05/31/24 16:26 BP 145/64 H 05/31/24 16:26 Pulse Ox 100 05/31/24 11:26 O2 Del Method Nasal Cannula 05/31/24 11: Oxygen Flow Rate 4 05/31/24 11:26 BMI result Body Mass Index 22.1 EXAM: GENERAL: The patient is frail and weak VITAL SIGNS:see workflow HEENT: Nonicteric sclerae, PERRLA, EOMI. Oropharynx clear. Moist mucous membranes. Conjunctivae appear well perfused. No thyroid mass. CHEST: Chest wall is nontender. HEART: irregular with soft pand systolic murmur precordium LUNGS: Clear to auscultation bilaterally, reduced a/e ABDOMEN: Soft, positive bowel sounds, nontender, no organomegaly.no flank tenderness SKIN: bruises on arms NEUROLOGIC: Cranial nerves II-XII intact without motor/sensory deficit. Psych: normal affect Results Labs 05/31/24 11:42 05/31/24 11:42 Labs: Short CBC 05/31/24 Range/Units 11:42 WBC 9.1 (4.8-10.8) X10*3/uL Hgb 7.0 L* (12.0-16.0) g/dl Hct 21.6 L (37.0-47.0) % Plt Count 272 (160-400) X10*3/uL BMP 05/31/24 11:42 Sodium 127 L Potassium 4.4 Chloride 90 L Carbon Dioxide 30 H BUN 29 H Creatinine 1.93 H Calcium 8.6 D Liver Function 05/31/24 Range/Units 11:42 Total Bilirubin 0.4 (0.0-1.0) mg/dL AST 29 (5-31) U/L ALT 12 (0-31) U/L Alkaline Phosphatase 79 (39-117) U/L Albumin 3.2 L (3.5-5.0) g/dL Assessment and Plan (1) Anemia: Qualifiers: Anemia type: unspecified type Qualified Code(s): D64.9 - Anemia, unspecified Status: Acute Plan 1/ Anemia, without overt Gi bleeding, but recent admissions, on eliquis and has CKD, maybe an element of malnutrition as well. She has low EF and poor functional reserve nd is higher risk for anesthesia. PLAN; 1/ Discussed EGD and colonoscopy with the patient, but would have to wait s just had eliquis also elevated trop altough this may be due to CKD and stress demand mismatch and anemia. Anyhow she declined colonocopy but is willing for EGD. Recommend CT A/P with PO contrast interim to r/o an obvious bowel lesion. Timing of EGD dependent on clinical state maybe early next week 2/ Cont with PPI 3/ check ferritin, b12, folate 4/ hold dapagliflozin and eliquis meantime Procedures Date of Service Date of Service: 06/01/24
[2024-05-31 17:28] LABS: Glucose, Whole Blood 259 mg/dL (60-115)
[2024-05-31] MEDS: Insulin Lispro 100 UNIT/ML 3 ML VIAL SUBCUT ×2 (17:46→22:07)
[2024-05-31] MEDS: Furosemide 20 MG/2 ML VIAL IVPUSH (19:43)
[2024-05-31 19:49] LABS: Glucose, Whole Blood 197 mg/dL (60-115)
--- NOTE | 2024-05-31 20:04 | PC.NURSE ---
PRN Tylenol given for MD Jj briones
[2024-05-31 22:03] LABS: Glucose, Whole Blood 171 mg/dL (60-115)
[2024-05-31] MEDS: Insulin Glargine,Hum.rec.anlog 100 UNIT/ML 10 ML VIAL 10 UNIT SUBCUT (22:07)
[2024-05-31] MEDS: Atorvastatin Calcium 40 MG TABLET PO (22:08)
[2024-05-31] MEDS: Isosorbide Dinitrate 10 MG TABLET PO (22:08)
[2024-05-31] MEDS: guaiFENesin 200 MG/10 ML 10 ML LIQUID 5 ML PO (22:08)
[2024-05-31] MEDS: 0.9 % Sodium Chloride Flush 3 ML SYRINGE IVFLUSH (22:09)
[2024-05-31] MEDS: risperiDONE 0.5 MG TABLET PO (22:09)
[2024-05-31] MEDS: Donepezil HCl 5 MG TABLET PO (22:09)
[2024-05-31] MEDS: hydrALAZINE HCl 50 MG TABLET PO (22:09)
[2024-06-01] VITALS (7 sets, daily range): BP systolic 134–163; BP diastolic 57–71; PULSE 55–65; RESP 17–20; TEMP 36–36.4; O2SAT 95–99
[2024-06-01] MEDS: Pantoprazole Sodium 40 MG/10 ML VIAL IVPUSH (06:05)
[2024-06-01 07:06] LABS: Glucose, Whole Blood 146 mg/dL (60-115)
[2024-06-01 08:04] LABS: Hematocrit 34.3 % (37.0-47.0); Hemoglobin 11.4 g/dl (12.0-16.0); Mean Corpuscular HGB Conc 33.2 g/dl (31.0-35.0); Mean Corpuscular Hemoglobin 28.6 pg (27.0-33.0); Mean Platelet Volume 11.4 fL (9.4-12.3); Platelet Count 246 X10*3/uL (160-400); Red Blood Count 3.99 X10*6/uL (4.20-5.50); Red Cell Distribution Width 15.1 % (11.0-16.0); White Blood Count 10.9 X10*3/uL (4.8-10.8)
[2024-06-01 08:23] LABS: Anion Gap 16 (12-20); Blood Urea Nitrogen 24 mg/dL (9-16); Calcium 8.8 mg/dL (8.4-10.2); Carbon Dioxide 27 mmol/L (22-29); Chloride 96 mmol/L (96-108); Creatinine Clr Calc Pharmacy 24.1; Estimated Glomerular Filt Rate 32; Glucose Random 141 mg/dL (60-115); Iron 78 mcg/dL (30-160); Percent Iron Saturation 27 % (15-50); Potassium 4.1 mmol/L (3.3-5.1); Sodium 135 mmol/L (135-145); Total Iron Binding Capacity 287 mcg/dL (228-428); Unsaturated Iron Binding 209 ug/dL
--- NOTE | 2024-06-01 08:37 | MHC.CM.PN ---
Addendum entered by Teresita Michaud 06/01/24 11:57: CORRECTION! Patient is NOT a [facility] bed hold @ [facility] because that facility is not contracted with [facility]. Original Note: CM met with Patient at bedside and addressed IMM with her, providing Patient with the original and a copy has been placed on the chart. Patient was admitted here, from STR at [facility] and the hope is to return there to complete STR @ the time of dc ([facility] bed hold). CM has initiated and will follow for dc planning. Patient typically lives alone, uses a walker, has [facility], and a [employer]. PCP is Dr. Gene Sanchez and Patient's Daughter/Marian is the HCP.
[2024-06-01 08:38] LABS: Ferritin 85 ng/mL (10-250)
[2024-06-01] MEDS: hydrALAZINE HCl 50 MG TABLET PO ×2 (10:34→20:13)
[2024-06-01] MEDS: guaiFENesin 200 MG/10 ML 10 ML LIQUID 5 ML PO ×2 (10:34→15:11)
[2024-06-01] MEDS: Metoprolol Succinate ER 100 MG TAB.ER.24H PO (10:34)
[2024-06-01] MEDS: Cholecalciferol (Vitamin D3) 25 MCG TABLET PO (10:35)
[2024-06-01] MEDS: Amiodarone HCL 200 MG TABLET PO (10:35)
[2024-06-01] MEDS: risperiDONE 0.5 MG TABLET PO ×2 (10:35→20:13)
[2024-06-01] MEDS: Isosorbide Dinitrate 10 MG TABLET PO ×2 (10:35→20:13)
[2024-06-01] MEDS: 0.9 % Sodium Chloride Flush 3 ML SYRINGE IVFLUSH ×2 (10:36→15:11)
[2024-06-01 11:03] LABS: Glucose, Whole Blood 298 mg/dL (60-115)
--- NOTE | 2024-06-01 11:31 | MHC.CLN ---
RE; CONSULT REVIEWED PREVIOUS WT HX PT DOES NOT TRIGGER FOR SIGNIFICANT WT LOSS AT THIS TIME MONITOR PO INTAKE
[2024-06-01] MEDS: Insulin Lispro 100 UNIT/ML 3 ML VIAL SUBCUT (12:05)
[2024-06-01 12:07] LABS: Folate 11.8 ng/mL (> or = 4.0); Vitamin B12 406 pg/mL (200-900)
[2024-06-01] MEDS: Diatrizoate Meglumine, Sodium 30 ML SOLUTION PO (13:34)
--- NOTE | 2024-06-01 15:47 | P.PNIM_ITS ---
Subjective Subjective Date of Service: 06/01/24 Interval History: No acute issues overnight. No rectal bleeding since admission Review of Systems Denies chest pain Denies shortness of breath Denies nausea vomiting diarrhea Denies fever chills Physical Exam 2 Vital Signs: Vital Signs: Last Vital Signs Temp 97.5 F 06/01/24 11:12 Pulse 64 06/01/24 11:12 Resp 18 06/01/24 11:12 BP 152/68 H 06/01/24 11:12 Pulse Ox 98 06/01/24 11:12 O2 Del Method Nasal Cannula 06/01/24 11:12 O2 Flow Rate 2 06/01/24 11:12 Oxygen Flow Rate 4 05/31/24 11:26 BMI result Body Mass Index 21.6 Const: Other: Awake alert oriented x3 no acute distress Resp: Other: Clear to auscultation bilaterally no rales rhonchi or wheezes Cardio: Other: No S4; positive S1-S2; no S3 murmurs rubs or gallops GI: Other: Soft nontender nondistended normoactive bowel sounds Extrem: Other: No edema bilaterally Objective Data Active Medications Acetaminophen (Acetaminophen 325 Mg Tablet) 650 mg PO Q6H PRN PRN Reason: Pain, Mild (Pain Scale 1-3), fever or headache Albuterol Sulfate (Albuterol Sulfate 90 Mcg 8 Gm Inhaler) 2 puff INHALE Q4H PRN PRN Reason: Wheezing Amiodarone HCl (Amiodarone Hcl 200 Mg Tablet) 200 mg PO DAILY [facility] Last Admin: 06/01/24 10:35 Dose: 200 mg Documented By: ORA Atorvastatin Calcium (Atorvastatin Calcium 40 Mg Tablet) 40 mg PO BEDTIME [facility] Last Admin: 05/31/24 22:08 Dose: 40 mg Documented By: PAYTON Bisacodyl (Bisacodyl 10 Mg Supp.Rect) 10 mg [place] DAILY PRN PRN Reason: Constipation Donepezil HCl (Donepezil Hcl 5 Mg Tablet) 5 mg PO BEDTIME [facility] Last Admin: 05/31/24 22:09 Dose: 5 mg Documented By: PAYTON Fluticasone/Vilanterol (Fluticasone/Vilanterol 100/25 Blst.W.Dev) 1 puff INHALE RDAILY [facility] Last Admin: 06/01/24 07:33 Dose: Not Given Documented By: BELLO Non-Admin Reason: Patient Refused Glucose (Glucose Gel 15 Gm Gel..Gram.) 15 gm PO Q15M PRN; Protocol PRN Reason: per Hypoglycemia Standing Ord. Guaifenesin (Guaifenesin 200 Mg/10 Ml 10 Ml Liquid) 5 ml PO TID [facility] Last Admin: 06/01/24 15:11 Dose: 5 ml Documented By: ORA Hydralazine HCl (Hydralazine Hcl 50 Mg Tablet) 50 mg PO BID [facility]; Protocol Last Admin: 06/01/24 10:34 Dose: 50 mg Documented By: ORA Dextrose (D10) 250 mls @ 750 mls/hr IV Q15M PRN; Protocol PRN Reason: per Hypoglycemia Standing Ord. Insulin Glargine (Insulin Glargine,Hum.Rec.Anlog 100 Unit/Ml 10 Ml Vial) 10 unit SUBCUT BEDTIME [facility] Last Admin: 05/31/24 22:07 Dose: 10 unit Documented By: PAYTON Insulin Human Lispro (Insulin Lispro 100 Unit/Ml 3 Ml Vial) 0 unit SUBCUT QIDACHS [facility]; Protocol Last Admin: 06/01/24 12:05 Dose: 6 unit Documented By: ORA Isosorbide Dinitrate (Isosorbide Dinitrate 10 Mg Tablet) 10 mg PO BID [facility]; Protocol Last Admin: 06/01/24 10:35 Dose: 10 mg Documented By: ORA Melatonin (Melatonin 3 Mg Tablet) 6 mg PO BEDTIME PRN PRN Reason: Insomnia Metoprolol Succinate (Metoprolol Succinate Er 100 Mg Tab.Er.24h) 100 mg PO DAILY [facility]; Protocol Last Admin: 06/01/24 10:34 Dose: 100 mg Documented By: ORA Pantoprazole Sodium (Pantoprazole Sodium 40 Mg/10 Ml Vial) 40 mg IVPUSH DAILY@0630 [facility] Last Admin: 06/01/24 06:05 Dose: 40 mg Documented By: PAYTON Polyethylene Glycol (Polyethylene Glycol 3350 17 Gm Powd.Pack) 17 gm PO DAILY PRN PRN Reason: Constipation Risperidone (Risperidone 0.5 Mg Tablet) 0.5 mg PO BID [facility] Last Admin: 06/01/24 10:35 Dose: 0.5 mg Documented By: ORA Sodium Chloride (0.9 % Sodium Chloride Flush 3 Ml Syringe) 3 ml IVFLUSH QSHIFT [facility] Last Admin: 06/01/24 15:11 Dose: 3 ml Documented By: ORA Trazodone HCl (Trazodone Hcl 50 Mg Tablet) 50 mg PO BEDTIME PRN PRN Reason: Insomnia Vitamin D (Cholecalciferol (Vitamin D3) 25 Mcg Tablet) 25 mcg PO DAILY [facility] Last Admin: 06/01/24 10:35 Dose: 25 mcg Documented By: ORA Labs 06/01/24 07:12 06/01/24 07:12 Labs: Laboratory Results - last 24 hr 05/31/24 05/31/24 05/31/24 12:02 17:24 19:43 MCV MCH MCHC RDW Plt Count MPV Absolute Nucleated RBC Nucleated RBC % (auto) Anion Gap Estim Creat Clear Calc Estimated GFR POC Glucose 259 H 197 H Random Glucose Calcium Iron TIBC % Saturation Unsat Iron Binding Ferritin Vitamin B12 Folate Blood Type AB Positive Antibody Screen NEGATIVE Crossmatch See Detail 05/31/24 06/01/24 06/01/24 21:57 07:02 07:12 MCV 86.0 MCH 28.6 MCHC 33.2 RDW 15.1 Plt Count 246 MPV 11.4 Absolute Nucleated RBC 0.000 Nucleated RBC % (auto) 0.0 Anion Gap 16 Estim Creat Clear Calc 24.1 Estimated GFR 32 POC Glucose 171 H 146 H Random Glucose 141 H Calcium 8.8 Iron 78 TIBC 287 % Saturation 27 Unsat Iron Binding 209 Ferritin 85 Vitamin B12 Folate Blood Type Antibody Screen Crossmatch 06/01/24 06/01/24 10:32 10:59 MCV MCH MCHC RDW Plt Count MPV Absolute Nucleated RBC Nucleated RBC % (auto) Anion Gap Estim Creat Clear Calc Estimated GFR POC Glucose 298 H Random Glucose Calcium Iron TIBC % Saturation Unsat Iron Binding Ferritin Vitamin B12 406 Folate 11.8 Blood Type Antibody Screen Crossmatch Assessment and Plan (1) Anemia: Status: Acute (2) LAURO (acute kidney injury): Status: Acute (3) PAF (paroxysmal atrial fibrillation): Status: Acute Plan This is a 78 year old female with a history of COPD, HFrEF, paroxysmal atrial fibrillation on Eliquis, CKD, diabetes, coronary artery disease, 2 recent admissions for atrial fibrillation with rapid ventricular response and CHF discharged to rehab on May 28 and sent back to the emergency department today for worsening anemia 1.Symptomatic anemia -good response to 2 units packed cells -IV PPI -CT scan abdomen pelvis with oral contrast as per GI -hold Eliquis, ASA for now 2.LAURO on CKD3 -hold Bumex present -follow renal/divalent 3.Paroxysmal atrial fibrillation -heart rate acceptable on current therapies -continue amiodorone, metoprolol 100 qd -hold Eliquis due to above 4.HFrEF -continue hydralaine, isordil -hold bumex ... LAURO -follow renals/divalent 5.Diabetes mellitus type 2 with hyperglycemia -acceptable control off farxiga -Lantus 10U... Lispro correctional scale -adjust as indicated 6.Hypertension -acceptable control on current therapies -adjust as indicated DNR/DNI Pneumatics Requires ongoing hospitalization to complete workup for symptomatic anemia until follow up acute kidney injury along with specialty consultation Quality Stroke Does the patient have a stroke diagnosis?: No VTE Prior VTE?: No VTE Risk Level:: Medical - moderate - high VTE Device Contraindication: N/A - Device Ordered VTE Drug Contraindication: Treatment Not Indicated
--- NOTE | 2024-06-01 16:13 | P.PNGI_ITS ---
Subjective Subjective Date of Service: 06/01/24 Interval History: stable, no chest or abdominal pain denies melena or rectal bleeding HGB jumped up by 4 points with PRBC Critical Care Time (minutes): 0 Physical Exam 2 Vital Signs: Vital Signs: Last Vital Signs Temp 97.5 F 06/01/24 11:12 Pulse 64 06/01/24 11:12 Resp 18 06/01/24 11:12 BP 152/68 H 06/01/24 11:12 Pulse Ox 98 06/01/24 11:12 O2 Del Method Nasal Cannula 06/01/24 11:12 O2 Flow Rate 2 06/01/24 11:12 Oxygen Flow Rate 4 05/31/24 11:26 BMI result Body Mass Index 21.6 EXAM: GENERAL: The patient is frail VITAL SIGNS:see workflow HEENT: Nonicteric sclerae, PERRLA, EOMI. Oropharynx clear. Moist mucous membranes. Conjunctivae appear well perfused. No thyroid mass. CHEST: Chest wall is nontender. HEART: Regular rate and rhythm without murmurs. LUNGS: Clear to auscultation bilaterally-reducd a/e ABDOMEN: Soft, positive bowel sounds, nontender, no organomegaly.no flank tenderness SKIN: No rash,bruises on arms NEUROLOGIC: Cranial nerves II-XII intact without motor/sensory deficit. Psych: normal affect Const: Other: Awake alert oriented x3 no acute distress Resp: Other: Clear to auscultation bilaterally no rales rhonchi or wheezes Cardio: Other: No S4; positive S1-S2; no S3 murmurs rubs or gallops GI: Other: Soft nontender nondistended normoactive bowel sounds Extrem: Other: No edema bilaterally Objective Data Labs 06/01/24 07:12 06/01/24 07:12 Labs: Laboratory Results - last 24 hr 05/31/24 05/31/24 05/31/24 12:02 17:24 19:43 WBC RBC Hgb Hct MCV MCH MCHC RDW Plt Count MPV Absolute Nucleated RBC Nucleated RBC % (auto) Sodium Potassium Chloride Carbon Dioxide Anion Gap BUN Creatinine Estim Creat Clear Calc Estimated GFR POC Glucose 259 H 197 H Random Glucose Calcium Iron TIBC % Saturation Unsat Iron Binding Ferritin Vitamin B12 Folate Crossmatch See Detail 05/31/24 06/01/24 06/01/24 21:57 07:02 07:12 WBC 10.9 H RBC 3.99 L D Hgb 11.4 L D Hct 34.3 L D MCV 86.0 MCH 28.6 MCHC 33.2 RDW 15.1 Plt Count 246 MPV 11.4 Absolute Nucleated RBC 0.000 Nucleated RBC % (auto) 0.0 Sodium 135 Potassium 4.1 Chloride 96 Carbon Dioxide 27 Anion Gap 16 BUN 24 H Creatinine 1.57 H Estim Creat Clear Calc 24.1 Estimated GFR 32 POC Glucose 171 H 146 H Random Glucose 141 H Calcium 8.8 Iron 78 TIBC 287 % Saturation 27 Unsat Iron Binding 209 Ferritin 85 Vitamin B12 Folate Crossmatch 06/01/24 06/01/24 10:32 10:59 WBC RBC Hgb Hct MCV MCH MCHC RDW Plt Count MPV Absolute Nucleated RBC Nucleated RBC % (auto) Sodium Potassium Chloride Carbon Dioxide Anion Gap BUN Creatinine Estim Creat Clear Calc Estimated GFR POC Glucose 298 H Random Glucose Calcium Iron TIBC % Saturation Unsat Iron Binding Ferritin Vitamin B12 406 Folate 11.[address] scan - abdomen: Attestation: I personally reviewed and interpreted this imaging study as follows: My impression: atheroscleroic disease, constipation, atrophic kidneys Procedures Date of Service Date of Service: 06/01/24 Progress Note: A&P Assessment and plan (1) Anemia: Status: Acute Plan 1/ Anemia, no overt GI bleeding, could be from blood draws from recent admissions, CKD and malnutrition, has responded well to PRBC PLAN: 1/ Hold EGD for the moment given frailty and poor cardiac fn 2/ await CT /P with PO contrast 3/ if overt GI bleeding or recurrent anemia then can consider endoscopy Time Spent With Patient Time: Total time managing care of this patient today ____ minutes. Quality Stroke Does the patient have a stroke diagnosis?: No VTE Prior VTE?: No VTE Risk Level:: Medical - moderate - high VTE Device Contraindication: N/A - Device Ordered VTE Drug Contraindication: Treatment Not Indicated
[2024-06-01 17:09] LABS: Glucose, Whole Blood 153 mg/dL (60-115)
[2024-06-01] MEDS: Insulin Glargine,Hum.rec.anlog 100 UNIT/ML 10 ML VIAL 10 UNIT SUBCUT (20:13)
[2024-06-01] MEDS: Donepezil HCl 5 MG TABLET PO (20:13)
[2024-06-01] MEDS: Atorvastatin Calcium 40 MG TABLET PO (20:13)
[2024-06-01 20:32] LABS: Glucose, Whole Blood 132 mg/dL (60-115)
[2024-06-02 03:38] VITALS: BP 136/57; PULSE 60; RESP 16; TEMP 36.8; O2SAT 97
[2024-06-02] MEDS: 0.9 % Sodium Chloride Flush 3 ML SYRINGE IVFLUSH ×4 (05:40→20:55)
[2024-06-02] MEDS: Pantoprazole Sodium 40 MG/10 ML VIAL IVPUSH (05:40)
[2024-06-02 05:51] LABS: MANUAL DIFF FLAG NO
[2024-06-02 06:00] LABS: Basophils Percent Auto 0.4 % (0-2); Eosinophils Absolute Auto 0.2 X10*3/uL (0.0-0.4); Eosinophils Percent Auto 1.8 % (0-4); Hemoglobin 10.8 g/dl (12.0-16.0); Imm Gran Abs Auto 0.04 X10*3/uL (0.00-0.03); Imm Gran Pct Auto 0.4 % (0.0-0.4); Lymphocytes Absolute Auto 1.1 X10*3/uL (1.2-4.9); Lymphocytes Percent Auto 10.2 % (20-40); Mean Corpuscular HGB Conc 33.8 g/dl (31.0-35.0); Mean Corpuscular Hemoglobin 29.1 pg (27.0-33.0); Mean Corpuscular Volume 86.3 fL (80.0-98.0); Monocytes Absolute Auto 1.4 X10*3/uL (0.1-1.2); Monocytes Percent Auto 13.3 % (2-11); Neutrophils Absolute Auto 7.8 x10*3/uL (2.0-8.3); Neutrophils Percent Auto 73.9 % (45-73); Platelet Count 239 X10*3/uL (160-400); Red Blood Count 3.71 X10*6/uL (4.20-5.50); White Blood Count 10.5 X10*3/uL (4.8-10.8)
[2024-06-02 06:17] LABS: Alanine Aminotransferase 13 U/L (0-31); Albumin Level 3.1 g/dL (3.5-5.0); Alkaline Phosphatase 93 U/L (39-117); Anion Gap 15 (12-20); Aspartate Amino Transferase 18 U/L (5-31); Bilirubin Total 0.4 mg/dL (0.0-1.0); Blood Urea Nitrogen 27 mg/dL (9-16); Calcium 8.9 mg/dL (8.4-10.2); Carbon Dioxide 28 mmol/L (22-29); Chloride 92 mmol/L (96-108); Creatinine Clr Calc Pharmacy 22.5; Estimated Glomerular Filt Rate 30; Glucose Fasting 199 mg/dL (60-99); Potassium 3.9 mmol/L (3.3-5.1); Sodium 131 mmol/L (135-145); Total Protein 5.9 g/dL (6.5-8.0)
[2024-06-02 07:20] LABS: Glucose, Whole Blood 166 mg/dL (60-115)
[2024-06-02 08:00] VITALS: BP 140/52; PULSE 67; RESP 18; TEMP 36.8; O2SAT 99
[2024-06-02] MEDS: Amiodarone HCL 200 MG TABLET PO (09:15)
[2024-06-02] MEDS: Metoprolol Succinate ER 100 MG TAB.ER.24H PO (09:15)
[2024-06-02] MEDS: risperiDONE 0.5 MG TABLET PO ×2 (09:15→20:55)
[2024-06-02] MEDS: Cholecalciferol (Vitamin D3) 25 MCG TABLET PO (09:15)
[2024-06-02] MEDS: hydrALAZINE HCl 50 MG TABLET PO ×2 (09:15→20:55)
[2024-06-02] MEDS: guaiFENesin 200 MG/10 ML 10 ML LIQUID 5 ML PO ×2 (09:16→17:01)
[2024-06-02] MEDS: Insulin Lispro 100 UNIT/ML 3 ML VIAL SUBCUT ×4 (09:16→21:40)
[2024-06-02] MEDS: Isosorbide Dinitrate 10 MG TABLET PO ×2 (09:16→20:55)
[2024-06-02 12:00] VITALS: BP 145/66; PULSE 66; RESP 19; TEMP 36.3; O2SAT 98
[2024-06-02 12:13] LABS: Glucose, Whole Blood 161 mg/dL (60-115)
--- NOTE | 2024-06-02 14:16 | HO.PM.IMPN ---
Subjective Subjective Date of Service: 06/02/24 Interval History: No acute issues overnight. CT scan with p.o. contrast completed Review of Systems Denies chest pain Denies shortness of breath Denies nausea vomiting diarrhea Denies fever chills Physical Exam Vital Signs: Vital Signs: Last Vital Signs Temp 97.4 F 06/02/24 12:00 Pulse 66 06/02/24 12:00 Resp 19 06/02/24 12:00 BP 145/66 H 06/02/24 12:00 Pulse Ox 98 06/02/24 12:00 O2 Del Method Nasal Cannula 06/02/24 12:00 O2 Flow Rate 2 06/02/24 12:00 Oxygen Flow Rate 4 05/31/24 11:26 BMI result Body Mass Index 21.6 Const: Other: Awake alert oriented x3 no acute distress Resp: Other: Clear to auscultation bilaterally no rales rhonchi or wheezes Cardio: Other: No S4; positive S1-S2; no S3 murmurs rubs or gallops GI: Other: Soft nontender nondistended normoactive bowel sounds Extrem: Other: No edema bilaterally Objective Data Active Medications Acetaminophen (Acetaminophen 325 Mg Tablet) 650 mg PO Q6H PRN PRN Reason: Pain, Mild (Pain Scale 1-3), fever or headache Albuterol Sulfate (Albuterol Sulfate 90 Mcg 8 Gm Inhaler) 2 puff INHALE Q4H PRN PRN Reason: Wheezing Amiodarone HCl (Amiodarone Hcl 200 Mg Tablet) 200 mg PO DAILY [facility] Last Admin: 06/02/24 09:15 Dose: 200 mg Documented By: ORA Atorvastatin Calcium (Atorvastatin Calcium 40 Mg Tablet) 40 mg PO BEDTIME [facility] Last Admin: 06/01/24 20:13 Dose: 40 mg Documented By: SONNY Bisacodyl (Bisacodyl 10 Mg Supp.Rect) 10 mg [place] DAILY PRN PRN Reason: Constipation Donepezil HCl (Donepezil Hcl 5 Mg Tablet) 5 mg PO BEDTIME [facility] Last Admin: 06/01/24 20:13 Dose: 5 mg Documented By: SONNY Fluticasone/Vilanterol (Fluticasone/Vilanterol 100/25 Blst.W.Dev) 1 puff INHALE RDAILY [facility] Last Admin: 06/02/24 07:52 Dose: Not Given Documented By: BELLO Non-Admin Reason: Patient Refused Glucose (Glucose Gel 15 Gm Gel..Gram.) 15 gm PO Q15M PRN; Protocol PRN Reason: per Hypoglycemia Standing Ord. Guaifenesin (Guaifenesin 200 Mg/10 Ml 10 Ml Liquid) 5 ml PO TID [facility] Last Admin: 06/02/24 09:16 Dose: 5 ml Documented By: ORA Hydralazine HCl (Hydralazine Hcl 50 Mg Tablet) 50 mg PO BID [facility]; Protocol Last Admin: 06/02/24 09:15 Dose: 50 mg Documented By: ORA Dextrose (D10) 250 mls @ 750 mls/hr IV Q15M PRN; Protocol PRN Reason: per Hypoglycemia Standing Ord. Insulin Glargine (Insulin Glargine,Hum.Rec.Anlog 100 Unit/Ml 10 Ml Vial) 10 unit SUBCUT BEDTIME [facility] Last Admin: 06/01/24 20:13 Dose: 10 unit Documented By: SONNY Insulin Human Lispro (Insulin Lispro 100 Unit/Ml 3 Ml Vial) 0 unit SUBCUT QIDACHS [facility]; Protocol Last Admin: 06/02/24 09:16 Dose: 2 unit Documented By: ORA Isosorbide Dinitrate (Isosorbide Dinitrate 10 Mg Tablet) 10 mg PO BID [facility]; Protocol Last Admin: 06/02/24 09:16 Dose: 10 mg Documented By: ORA Melatonin (Melatonin 3 Mg Tablet) 6 mg PO BEDTIME PRN PRN Reason: Insomnia Metoprolol Succinate (Metoprolol Succinate Er 100 Mg Tab.Er.24h) 100 mg PO DAILY [facility]; Protocol Last Admin: 06/02/24 09:15 Dose: 100 mg Documented By: ORA Pantoprazole Sodium (Pantoprazole Sodium 40 Mg/10 Ml Vial) 40 mg IVPUSH DAILY@0630 [facility] Last Admin: 06/02/24 05:40 Dose: 40 mg Documented By: PAYTON Polyethylene Glycol (Polyethylene Glycol 3350 17 Gm Powd.Pack) 17 gm PO DAILY PRN PRN Reason: Constipation Risperidone (Risperidone 0.5 Mg Tablet) 0.5 mg PO BID [facility] Last Admin: 06/02/24 09:15 Dose: 0.5 mg Documented By: ORA Sodium Chloride (0.9 % Sodium Chloride Flush 3 Ml Syringe) 3 ml IVFLUSH QSHIFT [facility] Last Admin: 06/02/24 09:17 Dose: 3 ml Documented By: ORA Trazodone HCl (Trazodone Hcl 50 Mg Tablet) 50 mg PO BEDTIME PRN PRN Reason: Insomnia Vitamin D (Cholecalciferol (Vitamin D3) 25 Mcg Tablet) 25 mcg PO DAILY [facility] Last Admin: 06/02/24 09:15 Dose: 25 mcg Documented By: ORA Labs 06/02/24 05:44 06/02/24 05:44 Labs: Laboratory Results - last 24 hr 06/01/24 06/01/24 06/02/24 16:20 20:29 05:44 MCV 86.3 MCH 29.1 MCHC 33.8 RDW 15.0 Plt Count 239 MPV 11.0 Immature Gran % (Auto) 0.4 Neut % (Auto) 73.9 H Lymph % (Auto) 10.[address] [place] % (Auto) 13.3 H Eos % (Auto) 1.8 Baso % (Auto) 0.4 Lymph # (Auto) 1.[address] # (Auto) 1.4 H Eos # (Auto) 0.2 Baso # (Auto) 0.0 Abs Immat Gran (auto) 0.04 H Absolute Neuts (auto) 7.8 Absolute Nucleated RBC 0.000 Nucleated RBC % (auto) 0.0 Anion Gap 15 Estim Creat Clear Calc 22.5 Estimated GFR 30 POC Glucose 153 H 132 H Fasting Glucose 199 H Calcium 8.9 Total Bilirubin 0.4 AST 18 ALT 13 Alkaline Phosphatase 93 Total Protein 5.9 L Albumin 3.1 L 06/02/24 06/02/24 07:12 12:07 MCV MCH MCHC RDW Plt Count MPV Immature Gran % (Auto) Neut % (Auto) Lymph % (Auto) [place] % (Auto) Eos % (Auto) Baso % (Auto) Lymph # (Auto) [place] # (Auto) Eos # (Auto) Baso # (Auto) Abs Immat Gran (auto) Absolute Neuts (auto) Absolute Nucleated RBC Nucleated RBC % (auto) Anion Gap Estim Creat Clear Calc Estimated GFR POC Glucose 166 H 161 H Fasting Glucose Calcium Total Bilirubin AST ALT Alkaline Phosphatase Total Protein Albumin Assessment and Plan (1) Anemia: Status: Acute (2) LAURO (acute kidney injury): Status: Acute Plan This is a 78 year old female with a history of COPD, HFrEF, paroxysmal atrial fibrillation on Eliquis, CKD, diabetes, coronary artery disease, 2 recent admissions for atrial fibrillation with rapid ventricular response and CHF discharged to rehab on May 28 and sent back to the emergency department today for worsening anemia 1.Symptomatic anemia -good response to 2 units packed cells -IV PPI -CT scan abdomen pelvis with oral contrast demonstrates questionable apple-core lesion -hold Eliquis, ASA for now 2.LAURO on CKD3 -hold Bumex present -follow renal/divalent 3.Paroxysmal atrial fibrillation -heart rate acceptable on current therapies -continue amiodorone, metoprolol 100 qd -hold Eliquis due to above -await further GI input 4.HFrEF -continue hydralaine, isordil -hold bumex ... LAURO -follow renals/divalent 5.Diabetes mellitus type 2 with hyperglycemia -acceptable control off farxiga -Lantus 10U... Lispro correctional scale -adjust as indicated 6.Hypertension -acceptable control on current therapies -adjust as indicated DNR/DNI Pneumatics Requires ongoing hospitalization to complete workup for symptomatic anemia until follow up acute kidney injury along with specialty consultation Quality Stroke Does the patient have a stroke diagnosis?: No VTE Prior VTE?: No VTE Risk Level:: Medical - moderate - high VTE Device Contraindication: N/A - Device Ordered VTE Drug Contraindication: Treatment Not Indicated
[2024-06-02 16:00] VITALS: BP 138/63; PULSE 73; RESP 18; TEMP 36.4; O2SAT 98
[2024-06-02 16:12] LABS: Glucose, Whole Blood 274 mg/dL (60-115)
[2024-06-02 20:00] VITALS: BP 144/68; PULSE 72; RESP 14; TEMP 36.7; O2SAT 97
[2024-06-02] MEDS: Insulin Glargine,Hum.rec.anlog 100 UNIT/ML 10 ML VIAL 10 UNIT SUBCUT (20:54)
[2024-06-02] MEDS: Atorvastatin Calcium 40 MG TABLET PO (20:55)
[2024-06-02] MEDS: Donepezil HCl 5 MG TABLET PO (20:55)
[2024-06-02] MEDS: Tetrahydrozoline HCl 0.05% Oph 15 ML DRPBTL 1 DROP EYE-BOTH (21:38)
[2024-06-02 21:51] LABS: Glucose, Whole Blood 167 mg/dL (60-115)
[2024-06-03 05:13] VITALS: BP 155/70; PULSE 71; RESP 20; TEMP 36.7; O2SAT 98
[2024-06-03] MEDS: Tetrahydrozoline HCl 0.05% Oph 15 ML DRPBTL 1 DROP EYE-BOTH ×2 (06:23→15:45)
[2024-06-03] MEDS: Pantoprazole Sodium 40 MG/10 ML VIAL IVPUSH (06:24)
[2024-06-03 07:22] LABS: Glucose, Whole Blood 136 mg/dL (60-115)
[2024-06-03 07:44] VITALS: BP 144/72; PULSE 70; RESP 18; TEMP 36.8; O2SAT 98
[2024-06-03] MEDS: guaiFENesin 200 MG/10 ML 10 ML LIQUID 5 ML PO (10:42)
[2024-06-03 10:43] VITALS: BP 163/72; PULSE 70
[2024-06-03] MEDS: risperiDONE 0.5 MG TABLET PO ×2 (10:43→20:45)
[2024-06-03] MEDS: Metoprolol Succinate ER 100 MG TAB.ER.24H PO (10:43)
[2024-06-03] MEDS: Cholecalciferol (Vitamin D3) 25 MCG TABLET PO (10:43)
[2024-06-03] MEDS: hydrALAZINE HCl 50 MG TABLET PO ×2 (10:45→20:47)
[2024-06-03] MEDS: Isosorbide Dinitrate 10 MG TABLET PO ×2 (10:45→20:46)
[2024-06-03] MEDS: Amiodarone HCL 200 MG TABLET PO (10:45)
[2024-06-03 11:32] LABS: MANUAL DIFF FLAG NO
[2024-06-03 11:34] LABS: Basophils Percent Auto 0.4 % (0-2); Eosinophils Absolute Auto 0.2 X10*3/uL (0.0-0.4); Eosinophils Percent Auto 1.8 % (0-4); Hematocrit 33.2 % (37.0-47.0); Hemoglobin 10.9 g/dl (12.0-16.0); Imm Gran Abs Auto 0.02 X10*3/uL (0.00-0.03); Imm Gran Pct Auto 0.2 % (0.0-0.4); Lymphocytes Absolute Auto 0.7 X10*3/uL (1.2-4.9); Lymphocytes Percent Auto 8.2 % (20-40); Mean Corpuscular HGB Conc 32.8 g/dl (31.0-35.0); Mean Corpuscular Hemoglobin 28.8 pg (27.0-33.0); Mean Corpuscular Volume 87.6 fL (80.0-98.0); Mean Platelet Volume 10.9 fL (9.4-12.3); Monocytes Percent Auto 12.2 % (2-11); Neutrophils Absolute Auto 6.5 x10*3/uL (2.0-8.3); Neutrophils Percent Auto 77.2 % (45-73); Platelet Count 233 X10*3/uL (160-400); Red Blood Count 3.79 X10*6/uL (4.20-5.50); Red Cell Distribution Width 14.9 % (11.0-16.0); White Blood Count 8.4 X10*3/uL (4.8-10.8)
[2024-06-03 11:51] LABS: Alanine Aminotransferase 11 U/L (0-31); Albumin Level 3.2 g/dL (3.5-5.0); Alkaline Phosphatase 88 U/L (39-117); Anion Gap 15 (12-20); Aspartate Amino Transferase 24 U/L (5-31); Bilirubin Total 0.4 mg/dL (0.0-1.0); Blood Urea Nitrogen 22 mg/dL (9-16); Calcium 8.4 mg/dL (8.4-10.2); Carbon Dioxide 28 mmol/L (22-29); Chloride 92 mmol/L (96-108); Creatinine Clr Calc Pharmacy 24.1; Estimated Glomerular Filt Rate 32; Glucose Fasting 278 mg/dL (60-99); Potassium 4.1 mmol/L (3.3-5.1); Sodium 131 mmol/L (135-145); Total Protein 6.2 g/dL (6.5-8.0)
[2024-06-03 11:51] LABS: Glucose, Whole Blood 280 mg/dL (60-115)
[2024-06-03 12:00] VITALS: BP 134/60; PULSE 66; RESP 16; TEMP 36.3; O2SAT 96
[2024-06-03] MEDS: Insulin Lispro 100 UNIT/ML 3 ML VIAL SUBCUT ×3 (12:16→20:44)
--- NOTE | 2024-06-03 14:07 | HO.PM.IMPN ---
Subjective Subjective Date of Service: 06/03/24 Interval History: Results of CT scan reviewed with the patient (apple-core lesion). Discuss future plans. States overall she feels better Review of Systems Denies chest pain Denies shortness of breath Denies nausea vomiting diarrhea Denies fever chills Physical Exam Vital Signs: Vital Signs: Last Vital Signs Temp 97.4 F 06/03/24 12:00 Pulse 66 06/03/24 12:00 Resp 16 06/03/24 12:00 BP 134/60 06/03/24 12:00 Pulse Ox 96 06/03/24 12:00 O2 Del Method Nasal Cannula 06/03/24 12:00 O2 Flow Rate 2 06/03/24 12:00 Oxygen Flow Rate 4 05/31/24 11:26 BMI result Body Mass Index 21.6 Const: Other: Awake alert oriented x3 no acute distress Resp: Other: Clear to auscultation bilaterally no rales rhonchi or wheezes Cardio: Other: No S4; positive S1-S2; no S3 murmurs rubs or gallops GI: Other: Soft nontender nondistended normoactive bowel sounds Extrem: Other: No edema bilaterally Objective Data Active Medications Acetaminophen (Acetaminophen 325 Mg Tablet) 650 mg PO Q6H PRN PRN Reason: Pain, Mild (Pain Scale 1-3), fever or headache Albuterol Sulfate (Albuterol Sulfate 90 Mcg 8 Gm Inhaler) 2 puff INHALE Q4H PRN PRN Reason: Wheezing Amiodarone HCl (Amiodarone Hcl 200 Mg Tablet) 200 mg PO DAILY [facility] Last Admin: 06/03/24 10:45 Dose: 200 mg Documented By: CARLY Artificial Tears (Artificial Tears 15 Ml Drops) 2 drop EYE-BOTH Q4H PRN PRN Reason: Dry Eyes Atorvastatin Calcium (Atorvastatin Calcium 40 Mg Tablet) 40 mg PO BEDTIME [facility] Last Admin: 06/02/24 20:55 Dose: 40 mg Documented By: PAYTON Bisacodyl (Bisacodyl 10 Mg Supp.Rect) 10 mg [place] DAILY PRN PRN Reason: Constipation Donepezil HCl (Donepezil Hcl 5 Mg Tablet) 5 mg PO BEDTIME [facility] Last Admin: 06/02/24 20:55 Dose: 5 mg Documented By: PAYTON Fluticasone/Vilanterol (Fluticasone/Vilanterol 100/25 Blst.W.Dev) 1 puff INHALE RDAILY [facility] Last Admin: 06/03/24 07:33 Dose: Not Given Documented By: BELLO Non-Admin Reason: Patient Refused Glucose (Glucose Gel 15 Gm Gel..Gram.) 15 gm PO Q15M PRN; Protocol PRN Reason: per Hypoglycemia Standing Ord. Guaifenesin (Guaifenesin 200 Mg/10 Ml 10 Ml Liquid) 5 ml PO TID [facility] Last Admin: 06/03/24 10:42 Dose: 5 ml Documented By: CARLY Hydralazine HCl (Hydralazine Hcl 50 Mg Tablet) 50 mg PO BID [facility]; Protocol Last Admin: 06/03/24 10:45 Dose: 50 mg Documented By: CARLY Dextrose (D10) 250 mls @ 750 mls/hr IV Q15M PRN; Protocol PRN Reason: per Hypoglycemia Standing Ord. Insulin Glargine (Insulin Glargine,Hum.Rec.Anlog 100 Unit/Ml 10 Ml Vial) 10 unit SUBCUT BEDTIME [facility] Last Admin: 06/02/24 20:54 Dose: 10 unit Documented By: PAYTON Insulin Human Lispro (Insulin Lispro 100 Unit/Ml 3 Ml Vial) 0 unit SUBCUT QIDACHS [facility]; Protocol Last Admin: 06/03/24 12:16 Dose: 6 unit Documented By: CARLY Isosorbide Dinitrate (Isosorbide Dinitrate 10 Mg Tablet) 10 mg PO BID [facility]; Protocol Last Admin: 06/03/24 10:45 Dose: 10 mg Documented By: CARLY Melatonin (Melatonin 3 Mg Tablet) 6 mg PO BEDTIME PRN PRN Reason: Insomnia Metoprolol Succinate (Metoprolol Succinate Er 100 Mg Tab.Er.24h) 100 mg PO DAILY [facility]; Protocol Last Admin: 06/03/24 10:43 Dose: 100 mg Documented By: CARLY Pantoprazole Sodium (Pantoprazole Sodium 40 Mg/10 Ml Vial) 40 mg IVPUSH DAILY@0630 [facility] Last Admin: 06/03/24 06:24 Dose: 40 mg Documented By: PAYTON Polyethylene Glycol (Polyethylene Glycol 3350 17 Gm Powd.Pack) 17 gm PO DAILY PRN PRN Reason: Constipation Risperidone (Risperidone 0.5 Mg Tablet) 0.5 mg PO BID [facility] Last Admin: 06/03/24 10:43 Dose: 0.5 mg Documented By: CARLY Sodium Chloride (0.9 % Sodium Chloride Flush 3 Ml Syringe) 3 ml IVFLUSH QSHIFT [facility] Last Admin: 06/03/24 10:48 Dose: Not Given Documented By: CARLY Non-Admin Reason: No Access Comments: MD herrmann Tetrahydrozoline HCl (Tetrahydrozoline Hcl 0.05% Oph 15 Ml Drpbtl) 1 drop EYE-BOTH QID PRN PRN Reason: Dry Eyes Last Admin: 06/03/24 06:23 Dose: 1 drop Documented By: PAYTON Trazodone HCl (Trazodone Hcl 50 Mg Tablet) 50 mg PO BEDTIME PRN PRN Reason: Insomnia Vitamin D (Cholecalciferol (Vitamin D3) 25 Mcg Tablet) 25 mcg PO DAILY [facility] Last Admin: 06/03/24 10:43 Dose: 25 mcg Documented By: CARLY Labs 06/03/24 11:20 06/03/24 11:20 Labs: Laboratory Results - last 24 hr 06/02/24 06/02/24 06/03/24 16:07 21:38 07:16 MCV MCH MCHC RDW Plt Count MPV Immature Gran % (Auto) Neut % (Auto) Lymph % (Auto) [place] % (Auto) Eos % (Auto) Baso % (Auto) Lymph # (Auto) [place] # (Auto) Eos # (Auto) Baso # (Auto) Abs Immat Gran (auto) Absolute Neuts (auto) Absolute Nucleated RBC Nucleated RBC % (auto) Anion Gap Estim Creat Clear Calc Estimated GFR POC Glucose 274 H 167 H 136 H Fasting Glucose Calcium Total Bilirubin AST ALT Alkaline Phosphatase Total Protein Albumin 06/03/24 06/03/24 11:20 11:47 MCV 87.6 MCH 28.8 MCHC 32.8 RDW 14.9 Plt Count 233 MPV 10.9 Immature Gran % (Auto) 0.2 Neut % (Auto) 77.2 H Lymph % (Auto) 8.2 L [place] % (Auto) 12.2 H Eos % (Auto) 1.8 Baso % (Auto) 0.4 Lymph # (Auto) 0.7 L [place] # (Auto) 1.0 Eos # (Auto) 0.2 Baso # (Auto) 0.0 Abs Immat Gran (auto) 0.02 Absolute Neuts (auto) 6.5 Absolute Nucleated RBC 0.000 Nucleated RBC % (auto) 0.0 Anion Gap 15 Estim Creat Clear Calc 24.1 Estimated GFR 32 POC Glucose 280 H Fasting Glucose 278 H Calcium 8.4 Total Bilirubin 0.4 AST 24 ALT 11 Alkaline Phosphatase 88 Total Protein 6.2 L Albumin 3.2 L Assessment and Plan (1) Colonic mass: Status: Acute Plan This is a 78 year old female with a history of COPD, HFrEF, paroxysmal atrial fibrillation on Eliquis, CKD, diabetes, coronary artery disease, 2 recent admissions for atrial fibrillation with rapid ventricular response and CHF discharged to rehab on May 28 and sent back to the emergency department today for worsening anemia 1.Symptomatic anemia (likely secondary to newly discovered apple core lesion:) -IV PPI -CT scan abdomen pelvis with oral contrast demonstrates questionable apple-core lesion -hold Eliquis, ASA for now -colonoscopy 06/05 2.LAURO on CKD3 -remained stable -hold Bumex present -follow renal/divalent 3.Paroxysmal atrial fibrillation -heart rate acceptable on current therapies -continue amiodorone, metoprolol 100 qd -hold Eliquis due to above -await further GI input 4.HFrEF -continue hydralaine, isordil -hold bumex ... LAURO -follow renals/divalent 5.Diabetes mellitus type 2 with hyperglycemia -acceptable control off farxiga -Lantus 10U... Lispro correctional scale -adjust as indicated 6.Hypertension -acceptable control on current therapies -adjust as indicated DNR/DNI Pneumatics Requires ongoing hospitalization to complete workup for symptomatic anemia until follow up acute kidney injury along with specialty consultation Quality Stroke Does the patient have a stroke diagnosis?: No VTE Prior VTE?: No VTE Risk Level:: Medical - moderate - high VTE Device Contraindication: N/A - Device Ordered VTE Drug Contraindication: Treatment Not Indicated
--- NOTE | 2024-06-03 14:51 | MHC.CM.PN ---
EMR REVIEWED, PER MD NOTES, PT NOW W/ APPLE CORE LESION MAY BE CAUSE OF ANEMIA, P.T. CONSULT REQUESTED PT's PLAN WAS TO RETURN TO STR AT [facility] HOWEVER PT IS NOT A BEDHOLD, CM WILL CONT TO FOLLOW DC NEEDS.
[2024-06-03 15:33] VITALS: BP 166/54; PULSE 70; RESP 18; TEMP 36.4; O2SAT 95
[2024-06-03 17:02] LABS: Glucose, Whole Blood 182 mg/dL (60-115)
[2024-06-03 20:00] VITALS: BP 138/61; PULSE 68; RESP 16; TEMP 37.1; O2SAT 98
[2024-06-03 20:30] LABS: Glucose, Whole Blood 223 mg/dL (60-115)
[2024-06-03] MEDS: Insulin Glargine,Hum.rec.anlog 100 UNIT/ML 10 ML VIAL 10 UNIT SUBCUT (20:45)
[2024-06-03] MEDS: Atorvastatin Calcium 40 MG TABLET PO (20:45)
[2024-06-03] MEDS: Donepezil HCl 5 MG TABLET PO (20:46)
[2024-06-03] MEDS: traZODone HCL 50 MG TABLET PO (20:46)
[2024-06-04 06:43] LABS: MANUAL DIFF FLAG NO
[2024-06-04 07:04] LABS: Alanine Aminotransferase 10 U/L (0-31); Albumin Level 3.2 g/dL (3.5-5.0); Alkaline Phosphatase 86 U/L (39-117); Anion Gap 14 (12-20); Aspartate Amino Transferase 27 U/L (5-31); Bilirubin Total 0.4 mg/dL (0.0-1.0); Blood Urea Nitrogen 25 mg/dL (9-16); Calcium 8.5 mg/dL (8.4-10.2); Carbon Dioxide 28 mmol/L (22-29); Chloride 95 mmol/L (96-108); Creatinine Clr Calc Pharmacy 24.4; Estimated Glomerular Filt Rate 33; Glucose Fasting 151 mg/dL (60-99); Potassium 4.2 mmol/L (3.3-5.1); Sodium 133 mmol/L (135-145); Total Protein 6.4 g/dL (6.5-8.0)
[2024-06-04 07:08] LABS: Basophils Percent Auto 0.5 % (0-2); Eosinophils Absolute Auto 0.3 X10*3/uL (0.0-0.4); Eosinophils Percent Auto 2.9 % (0-4); Hematocrit 32.8 % (37.0-47.0); Hemoglobin 10.8 g/dl (12.0-16.0); Imm Gran Abs Auto 0.02 X10*3/uL (0.00-0.03); Imm Gran Pct Auto 0.2 % (0.0-0.4); Lymphocytes Percent Auto 11.9 % (20-40); Mean Corpuscular HGB Conc 32.9 g/dl (31.0-35.0); Mean Corpuscular Volume 88.2 fL (80.0-98.0); Mean Platelet Volume 11.1 fL (9.4-12.3); Monocytes Absolute Auto 1.3 X10*3/uL (0.1-1.2); Monocytes Percent Auto 14.6 % (2-11); Neutrophils Absolute Auto 6.1 x10*3/uL (2.0-8.3); Neutrophils Percent Auto 69.9 % (45-73); Platelet Count 278 X10*3/uL (160-400); Red Blood Count 3.72 X10*6/uL (4.20-5.50); Red Cell Distribution Width 14.6 % (11.0-16.0); White Blood Count 8.7 X10*3/uL (4.8-10.8)
[2024-06-04 07:30] LABS: Glucose, Whole Blood 144 mg/dL (60-115)
[2024-06-04 08:00] VITALS: BP 158/75; PULSE 76; RESP 18; TEMP 36.6; O2SAT 96
[2024-06-04] MEDS: Metoprolol Succinate ER 100 MG TAB.ER.24H PO (08:31)
[2024-06-04] MEDS: Tetrahydrozoline HCl 0.05% Oph 15 ML DRPBTL 1 DROP EYE-BOTH (08:31)
[2024-06-04] MEDS: hydrALAZINE HCl 50 MG TABLET PO ×2 (08:31→21:47)
[2024-06-04] MEDS: Amiodarone HCL 200 MG TABLET PO (08:31)
[2024-06-04] MEDS: risperiDONE 0.5 MG TABLET PO ×2 (08:31→21:47)
[2024-06-04] MEDS: Isosorbide Dinitrate 10 MG TABLET PO ×2 (08:31→21:47)
[2024-06-04] MEDS: 0.9 % Sodium Chloride Flush 3 ML SYRINGE IVFLUSH ×3 (08:32→21:47)
[2024-06-04] MEDS: guaiFENesin 200 MG/10 ML 10 ML LIQUID 5 ML PO ×2 (08:33→21:46)
[2024-06-04] MEDS: Cholecalciferol (Vitamin D3) 25 MCG TABLET PO (08:33)
[2024-06-04 11:32] LABS: Glucose, Whole Blood 298 mg/dL (60-115)
[2024-06-04] MEDS: Insulin Lispro 100 UNIT/ML 3 ML VIAL SUBCUT ×3 (11:52→21:47)
[2024-06-04 11:53] VITALS: BP 156/68; PULSE 69; RESP 20; TEMP 36.7; O2SAT 99
--- NOTE | 2024-06-04 14:48 | HO.PM.IMPN ---
Subjective Subjective Date of Service: 06/04/24 Interval History: No acute issues overnight. Anxious regarding colonoscopy 06/06 Review of Systems Denies chest pain Denies shortness of breath Denies nausea vomiting diarrhea Denies fever chills Physical Exam Vital Signs: Vital Signs: Last Vital Signs Temp 98.0 F 06/04/24 11:53 Pulse 69 06/04/24 11:53 Resp 20 06/04/24 11:53 BP 156/68 H 06/04/24 11:53 Pulse Ox 99 06/04/24 11:53 O2 Del Method Nasal Cannula 06/04/24 11:53 O2 Flow Rate 2 06/04/24 11:53 Oxygen Flow Rate 4 05/31/24 11:26 BMI result Body Mass Index 21.6 Const: Other: Awake alert oriented x3 no acute distress Resp: Other: Clear to auscultation bilaterally no rales rhonchi or wheezes Cardio: Other: No S4; positive S1-S2; no S3 murmurs rubs or gallops GI: Other: Soft nontender nondistended normoactive bowel sounds Extrem: Other: No edema bilaterally Objective Data Active Medications Acetaminophen (Acetaminophen 325 Mg Tablet) 650 mg PO Q6H PRN PRN Reason: Pain, Mild (Pain Scale 1-3), fever or headache Albuterol Sulfate (Albuterol Sulfate 90 Mcg 8 Gm Inhaler) 2 puff INHALE Q4H PRN PRN Reason: Wheezing Amiodarone HCl (Amiodarone Hcl 200 Mg Tablet) 200 mg PO DAILY [facility] Last Admin: 06/04/24 08:31 Dose: 200 mg Documented By: SONNY Artificial Tears (Artificial Tears 15 Ml Drops) 2 drop EYE-BOTH Q4H PRN PRN Reason: Dry Eyes Atorvastatin Calcium (Atorvastatin Calcium 40 Mg Tablet) 40 mg PO BEDTIME [facility] Last Admin: 06/03/24 20:45 Dose: 40 mg Documented By: PAYTON Bisacodyl (Bisacodyl 10 Mg Supp.Rect) 10 mg [place] DAILY PRN PRN Reason: Constipation Donepezil HCl (Donepezil Hcl 5 Mg Tablet) 5 mg PO BEDTIME [facility] Last Admin: 06/03/24 20:46 Dose: 5 mg Documented By: PAYTON Fluticasone/Vilanterol (Fluticasone/Vilanterol 100/25 Blst.W.Dev) 1 puff INHALE RDAILY [facility] Last Admin: 06/04/24 07:58 Dose: Not Given Documented By: BELLO Non-Admin Reason: Patient Refused Glucose (Glucose Gel 15 Gm Gel..Gram.) 15 gm PO Q15M PRN; Protocol PRN Reason: per Hypoglycemia Standing Ord. Guaifenesin (Guaifenesin 200 Mg/10 Ml 10 Ml Liquid) 5 ml PO TID [facility] Last Admin: 06/04/24 12:32 Dose: Not Given Documented By: SONNY Non-Admin Reason: Patient Refused Hydralazine HCl (Hydralazine Hcl 50 Mg Tablet) 50 mg PO BID [facility]; Protocol Last Admin: 06/04/24 08:31 Dose: 50 mg Documented By: SONNY Dextrose (D10) 250 mls @ 750 mls/hr IV Q15M PRN; Protocol PRN Reason: per Hypoglycemia Standing Ord. Insulin Glargine (Insulin Glargine,Hum.Rec.Anlog 100 Unit/Ml 10 Ml Vial) 10 unit SUBCUT BEDTIME [facility] Last Admin: 06/03/24 20:45 Dose: 10 unit Documented By: PAYTON Insulin Human Lispro (Insulin Lispro 100 Unit/Ml 3 Ml Vial) 0 unit SUBCUT QIDACHS [facility]; Protocol Last Admin: 06/04/24 11:52 Dose: 6 unit Documented By: SONNY Isosorbide Dinitrate (Isosorbide Dinitrate 10 Mg Tablet) 10 mg PO BID [facility]; Protocol Last Admin: 06/04/24 08:31 Dose: 10 mg Documented By: SONNY Melatonin (Melatonin 3 Mg Tablet) 6 mg PO BEDTIME PRN PRN Reason: Insomnia Metoprolol Succinate (Metoprolol Succinate Er 100 Mg Tab.Er.24h) 100 mg PO DAILY [facility]; Protocol Last Admin: 06/04/24 08:31 Dose: 100 mg Documented By: SONNY Polyethylene Glycol (Polyethylene Glycol 3350 17 Gm Powd.Pack) 17 gm PO DAILY PRN PRN Reason: Constipation Risperidone (Risperidone 0.5 Mg Tablet) 0.5 mg PO BID [facility] Last Admin: 06/04/24 08:31 Dose: 0.5 mg Documented By: SONNY Sodium Chloride (0.9 % Sodium Chloride Flush 3 Ml Syringe) 3 ml IVFLUSH QSHIFT [facility] Last Admin: 06/04/24 08:32 Dose: 3 ml Documented By: SONNY Tetrahydrozoline HCl (Tetrahydrozoline Hcl 0.05% Oph 15 Ml Drpbtl) 1 drop EYE-BOTH QID PRN PRN Reason: Dry Eyes Last Admin: 06/04/24 08:31 Dose: 1 drop Documented By: SONNY Trazodone HCl (Trazodone Hcl 50 Mg Tablet) 50 mg PO BEDTIME PRN PRN Reason: Insomnia Last Admin: 06/03/24 20:46 Dose: 50 mg Documented By: PAYTON Vitamin D (Cholecalciferol (Vitamin D3) 25 Mcg Tablet) 25 mcg PO DAILY [facility] Last Admin: 06/04/24 08:33 Dose: 25 mcg Documented By: SONNY Labs 06/04/24 06:26 06/04/24 06:25 Labs: Laboratory Results - last 24 hr 06/03/24 06/03/24 06/04/24 16:53 20:26 06:25 MCV MCH MCHC RDW Plt Count MPV Immature Gran % (Auto) Neut % (Auto) Lymph % (Auto) [place] % (Auto) Eos % (Auto) Baso % (Auto) Lymph # (Auto) [place] # (Auto) Eos # (Auto) Baso # (Auto) Abs Immat Gran (auto) Absolute Neuts (auto) Absolute Nucleated RBC Nucleated RBC % (auto) Anion Gap 14 Estim Creat Clear Calc 24.4 Estimated GFR 33 POC Glucose 182 H 223 H Fasting Glucose 151 H Calcium 8.5 Total Bilirubin 0.4 AST 27 ALT 10 Alkaline Phosphatase 86 Total Protein 6.4 L Albumin 3.2 L 06/04/24 06/04/24 06/04/24 06:26 07:23 11:28 MCV 88.2 MCH 29.0 MCHC 32.9 RDW 14.6 Plt Count 278 MPV 11.1 Immature Gran % (Auto) 0.2 Neut % (Auto) 69.9 Lymph % (Auto) 11.9 L [place] % (Auto) 14.6 H Eos % (Auto) 2.9 Baso % (Auto) 0.5 Lymph # (Auto) 1.0 L [place] # (Auto) 1.3 H Eos # (Auto) 0.3 Baso # (Auto) 0.0 Abs Immat Gran (auto) 0.02 Absolute Neuts (auto) 6.1 Absolute Nucleated RBC 0.000 Nucleated RBC % (auto) 0.0 Anion Gap Estim Creat Clear Calc Estimated GFR POC Glucose 144 H 298 H Fasting Glucose Calcium Total Bilirubin AST ALT Alkaline Phosphatase Total Protein Albumin Assessment and Plan (1) Colonic mass: Status: Acute (2) Anemia: Status: Acute (3) LAURO (acute kidney injury): Status: Acute Plan This is a 78 year old female with a history of COPD, HFrEF, paroxysmal atrial fibrillation on Eliquis, CKD, diabetes, coronary artery disease, 2 recent admissions for atrial fibrillation with rapid ventricular response and CHF discharged to rehab on May 28 and sent back to the emergency department today for worsening anemia 1.Symptomatic anemia (likely secondary to newly discovered apple core lesion:) -IV PPI -CT scan abdomen pelvis with oral contrast demonstrates questionable apple-core lesion -hold Eliquis, ASA for now -colonoscopy 06/06.... Start prep in a.m. 2.LAURO on CKD3 -remained stable -hold Bumex present -follow renal/divalent 3.Paroxysmal atrial fibrillation -heart rate acceptable on current therapies -continue amiodorone, metoprolol 100 qd -hold Eliquis due to above -await further GI input 4.HFrEF -continue hydralaine, isordil -hold bumex ... LAURO -follow renals/divalent 5.Diabetes mellitus type 2 with hyperglycemia -acceptable control off farxiga -Lantus 10U... Lispro correctional scale -adjust as indicated 6.Hypertension -acceptable control on current therapies -adjust as indicated DNR/DNI Pneumatics Requires ongoing hospitalization to complete workup for symptomatic anemia until follow up acute kidney injury along with specialty consultation Quality Stroke Does the patient have a stroke diagnosis?: No VTE Prior VTE?: No VTE Risk Level:: Medical - moderate - high VTE Device Contraindication: N/A - Device Ordered VTE Drug Contraindication: Treatment Not Indicated
[2024-06-04 15:28] VITALS: BP 141/57; PULSE 67; RESP 20; TEMP 36.8; O2SAT 97
[2024-06-04 16:07] LABS: Glucose, Whole Blood 314 mg/dL (60-115)
[2024-06-04] MEDS: Artificial Tears 15 ML DROPS 2 DROP EYE-BOTH (16:10)
[2024-06-04 19:55] VITALS: BP 148/67; PULSE 65; RESP 20; TEMP 36.8; O2SAT 99
[2024-06-04 21:37] LABS: Glucose, Whole Blood 252 mg/dL (60-115)
[2024-06-04] MEDS: Atorvastatin Calcium 40 MG TABLET PO (21:44)
[2024-06-04] MEDS: Prochlorperazine Edisylate 10 MG/2 ML VIAL 5 MG IVPUSH (21:44)
[2024-06-04] MEDS: Insulin Glargine,Hum.rec.anlog 100 UNIT/ML 10 ML VIAL 10 UNIT SUBCUT (21:46)
[2024-06-04] MEDS: Donepezil HCl 5 MG TABLET PO (21:46)
[2024-06-04 21:47] VITALS: BP 163/73
[2024-06-04 23:30] VITALS: BP 157/64; PULSE 66; RESP 18; TEMP 36.6; O2SAT 97
[2024-06-05] VITALS (7 sets, daily range): BP systolic 105–150; BP diastolic 51–68; PULSE 53–84; RESP 16–20; TEMP 36.7–36.8; O2SAT 94–100
[2024-06-05 07:46] LABS: Glucose, Whole Blood 117 mg/dL (60-115)
[2024-06-05] MEDS: Fluticasone/Vilanterol 100/25 BLST.W.DEV 1 PUFF INHALE (07:54)
[2024-06-05 07:55] LABS: MANUAL DIFF FLAG NO
[2024-06-05 07:57] LABS: Basophils Percent Auto 0.4 % (0-2); Eosinophils Absolute Auto 0.3 X10*3/uL (0.0-0.4); Eosinophils Percent Auto 3.1 % (0-4); Hematocrit 33.4 % (37.0-47.0); Hemoglobin 10.9 g/dl (12.0-16.0); Imm Gran Abs Auto 0.03 X10*3/uL (0.00-0.03); Imm Gran Pct Auto 0.4 % (0.0-0.4); Lymphocytes Absolute Auto 0.9 X10*3/uL (1.2-4.9); Lymphocytes Percent Auto 10.8 % (20-40); Mean Corpuscular HGB Conc 32.6 g/dl (31.0-35.0); Mean Corpuscular Hemoglobin 28.8 pg (27.0-33.0); Mean Corpuscular Volume 88.4 fL (80.0-98.0); Mean Platelet Volume 10.5 fL (9.4-12.3); Monocytes Absolute Auto 1.2 X10*3/uL (0.1-1.2); Monocytes Percent Auto 14.8 % (2-11); Neutrophils Absolute Auto 5.8 x10*3/uL (2.0-8.3); Neutrophils Percent Auto 70.5 % (45-73); Platelet Count 280 X10*3/uL (160-400); Red Blood Count 3.78 X10*6/uL (4.20-5.50); Red Cell Distribution Width 14.5 % (11.0-16.0); White Blood Count 8.2 X10*3/uL (4.8-10.8)
[2024-06-05 08:12] LABS: Alanine Aminotransferase 11 U/L (0-31); Albumin Level 3.1 g/dL (3.5-5.0); Alkaline Phosphatase 83 U/L (39-117); Anion Gap 14 (12-20); Aspartate Amino Transferase 27 U/L (5-31); Bilirubin Total 0.4 mg/dL (0.0-1.0); Blood Urea Nitrogen 26 mg/dL (9-16); Calcium 9.4 mg/dL (8.4-10.2); Carbon Dioxide 28 mmol/L (22-29); Chloride 94 mmol/L (96-108); Creatinine Clr Calc Pharmacy 26.8; Estimated Glomerular Filt Rate 36; Glucose Fasting 117 mg/dL (60-99); Potassium 4.1 mmol/L (3.3-5.1); Sodium 132 mmol/L (135-145); Total Protein 6.1 g/dL (6.5-8.0)
[2024-06-05] MEDS: risperiDONE 0.5 MG TABLET PO ×2 (09:19→21:09)
[2024-06-05] MEDS: Artificial Tears 15 ML DROPS 2 DROP EYE-BOTH (09:19)
[2024-06-05] MEDS: guaiFENesin 200 MG/10 ML 10 ML LIQUID 5 ML PO (09:19)
[2024-06-05] MEDS: Isosorbide Dinitrate 10 MG TABLET PO ×2 (09:19→21:09)
[2024-06-05] MEDS: Amiodarone HCL 200 MG TABLET PO (09:20)
[2024-06-05] MEDS: hydrALAZINE HCl 50 MG TABLET PO ×2 (09:20→21:09)
[2024-06-05] MEDS: 0.9 % Sodium Chloride Flush 3 ML SYRINGE IVFLUSH ×3 (09:20→21:09)
[2024-06-05] MEDS: Cholecalciferol (Vitamin D3) 25 MCG TABLET PO (09:20)
[2024-06-05] MEDS: Metoprolol Succinate ER 100 MG TAB.ER.24H PO (09:20)
[2024-06-05 11:54] LABS: Glucose, Whole Blood 210 mg/dL (60-115)
[2024-06-05] MEDS: Insulin Lispro 100 UNIT/ML 3 ML VIAL SUBCUT ×3 (12:08→21:09)
--- NOTE | 2024-06-05 13:29 | HO.PM.IMPN ---
Subjective Subjective Date of Service: 06/05/24 Interval History: No acute issues overnight. Anxious about starting prep for colonoscopy Review of Systems Denies chest pain Denies shortness of breath Denies nausea vomiting diarrhea Denies fever chills Physical Exam Vital Signs: Vital Signs: Last Vital Signs Temp 98.2 F 06/05/24 11:49 Pulse 62 06/05/24 11:49 Resp 20 06/05/24 11:49 BP 142/67 H 06/05/24 11:49 Pulse Ox 98 06/05/24 11:49 O2 Del Method Nasal Cannula 06/05/24 11:49 O2 Flow Rate 2 06/05/24 11:49 Oxygen Flow Rate 4 05/31/24 11:26 BMI result Body Mass Index 21.6 Const: Other: Awake alert oriented x3 no acute distress Resp: Other: Clear to auscultation bilaterally no rales rhonchi or wheezes Cardio: Other: No S4; positive S1-S2; no S3 murmurs rubs or gallops GI: Other: Soft nontender nondistended normoactive bowel sounds Extrem: Other: No edema bilaterally Objective Data Active Medications Acetaminophen (Acetaminophen 325 Mg Tablet) 650 mg PO Q6H PRN PRN Reason: Pain, Mild (Pain Scale 1-3), fever or headache Albuterol Sulfate (Albuterol Sulfate 90 Mcg 8 Gm Inhaler) 2 puff INHALE Q4H PRN PRN Reason: Wheezing Amiodarone HCl (Amiodarone Hcl 200 Mg Tablet) 200 mg PO DAILY [facility] Last Admin: 06/05/24 09:20 Dose: 200 mg Documented By: ALFREDO Artificial Tears (Artificial Tears 15 Ml Drops) 2 drop EYE-BOTH Q4H PRN PRN Reason: Dry Eyes Last Admin: 06/05/24 09:19 Dose: 2 drop Documented By: ALFREDO Atorvastatin Calcium (Atorvastatin Calcium 40 Mg Tablet) 40 mg PO BEDTIME [facility] Last Admin: 06/04/24 21:44 Dose: 40 mg Documented By: MARCOS Bisacodyl (Bisacodyl 10 Mg Supp.Rect) 10 mg [place] DAILY PRN PRN Reason: Constipation Bisacodyl (Bisacodyl 5 Mg Tablet.Dr) 20 mg PO ONCE ONE Stop: 06/05/24 17:01 Donepezil HCl (Donepezil Hcl 5 Mg Tablet) 5 mg PO BEDTIME [facility] Last Admin: 06/04/24 21:46 Dose: 5 mg Documented By: MARCOS Fluticasone/Vilanterol (Fluticasone/Vilanterol 100/25 Blst.W.Dev) 1 puff INHALE RDAILY [facility] Last Admin: 06/05/24 07:54 Dose: 1 puff Documented By: BELLO Glucose (Glucose Gel 15 Gm Gel..Gram.) 15 gm PO Q15M PRN; Protocol PRN Reason: per Hypoglycemia Standing Ord. Guaifenesin (Guaifenesin 200 Mg/10 Ml 10 Ml Liquid) 5 ml PO TID [facility] Last Admin: 06/05/24 12:10 Dose: Not Given Documented By: SONNY Non-Admin Reason: Patient Refused Hydralazine HCl (Hydralazine Hcl 50 Mg Tablet) 50 mg PO BID [facility]; Protocol Last Admin: 06/05/24 09:20 Dose: 50 mg Documented By: ALFREDO Dextrose (D10) 250 mls @ 750 mls/hr IV Q15M PRN; Protocol PRN Reason: per Hypoglycemia Standing Ord. Insulin Glargine (Insulin Glargine,Hum.Rec.Anlog 100 Unit/Ml 10 Ml Vial) 10 unit SUBCUT BEDTIME [facility] Last Admin: 06/04/24 21:46 Dose: 10 unit Documented By: MARCOS Insulin Human Lispro (Insulin Lispro 100 Unit/Ml 3 Ml Vial) 0 unit SUBCUT QIDACHS [facility]; Protocol Last Admin: 06/05/24 12:08 Dose: 4 unit Documented By: SONNY Isosorbide Dinitrate (Isosorbide Dinitrate 10 Mg Tablet) 10 mg PO BID [facility]; Protocol Last Admin: 06/05/24 09:19 Dose: 10 mg Documented By: ALFREDO Melatonin (Melatonin 3 Mg Tablet) 6 mg PO BEDTIME PRN PRN Reason: Insomnia Metoprolol Succinate (Metoprolol Succinate Er 100 Mg Tab.Er.24h) 100 mg PO DAILY [facility]; Protocol Last Admin: 06/05/24 09:20 Dose: 100 mg Documented By: ALFREDO Polyethylene Glycol (Polyethylene Glycol 3350 17 Gm Powd.Pack) 17 gm PO DAILY PRN PRN Reason: Constipation Polyethylene Glycol (Polyethylene Glycol 3350 17 Gm Powd.Pack) 119 gm PO ONCE ONE; Protocol Stop: 06/05/24 18:01 Polyethylene Glycol (Polyethylene Glycol 3350 17 Gm Powd.Pack) 119 gm PO ONCE ONE; Protocol Stop: 06/06/24 07:01 Prochlorperazine Edisylate (Prochlorperazine Edisylate 10 Mg/2 Ml Vial) 5 mg IVPUSH Q4H PRN PRN Reason: Nausea and Vomiting Last Admin: 06/04/24 21:44 Dose: 5 mg Documented By: MARCOS Comments: pt reports feelin nauseated. Risperidone (Risperidone 0.5 Mg Tablet) 0.5 mg PO BID [facility] Last Admin: 06/05/24 09:19 Dose: 0.5 mg Documented By: ALFREDO Sodium Chloride (0.9 % Sodium Chloride Flush 3 Ml Syringe) 3 ml IVFLUSH QSHIFT [facility] Last Admin: 06/05/24 09:20 Dose: 3 ml Documented By: ALFREDO Trazodone HCl (Trazodone Hcl 50 Mg Tablet) 50 mg PO BEDTIME PRN PRN Reason: Insomnia Last Admin: 06/03/24 20:46 Dose: 50 mg Documented By: PAYTON Vitamin D (Cholecalciferol (Vitamin D3) 25 Mcg Tablet) 25 mcg PO DAILY [facility] Last Admin: 06/05/24 09:20 Dose: 25 mcg Documented By: ALFREDO Labs 06/05/24 07:43 06/05/24 07:43 Labs: Laboratory Results - last 24 hr 06/04/24 06/04/24 06/05/24 16:03 21:32 07:40 MCV MCH MCHC RDW Plt Count MPV Immature Gran % (Auto) Neut % (Auto) Lymph % (Auto) [place] % (Auto) Eos % (Auto) Baso % (Auto) Lymph # (Auto) [place] # (Auto) Eos # (Auto) Baso # (Auto) Abs Immat Gran (auto) Absolute Neuts (auto) Absolute Nucleated RBC Nucleated RBC % (auto) Anion Gap Estim Creat Clear Calc Estimated GFR POC Glucose 314 H 252 H 117 H Fasting Glucose Calcium Total Bilirubin AST ALT Alkaline Phosphatase Total Protein Albumin 06/05/24 06/05/24 07:43 11:46 MCV 88.4 MCH 28.8 MCHC 32.6 RDW 14.5 Plt Count 280 MPV 10.5 Immature Gran % (Auto) 0.4 Neut % (Auto) 70.5 Lymph % (Auto) 10.8 L [place] % (Auto) 14.8 H Eos % (Auto) 3.1 Baso % (Auto) 0.4 Lymph # (Auto) 0.9 L [place] # (Auto) 1.2 Eos # (Auto) 0.3 Baso # (Auto) 0.0 Abs Immat Gran (auto) 0.03 Absolute Neuts (auto) 5.8 Absolute Nucleated RBC 0.000 Nucleated RBC % (auto) 0.0 Anion Gap 14 Estim Creat Clear Calc 26.8 Estimated GFR 36 POC Glucose 210 H Fasting Glucose 117 H Calcium 9.4 D Total Bilirubin 0.4 AST 27 ALT 11 Alkaline Phosphatase 83 Total Protein 6.1 L Albumin 3.1 L Assessment and Plan (1) Colonic mass: Status: Acute Plan This is a 78 year old female with a history of COPD, HFrEF, paroxysmal atrial fibrillation on Eliquis, CKD, diabetes, coronary artery disease, 2 recent admissions for atrial fibrillation with rapid ventricular response and CHF discharged to rehab on May 28 and sent back to the emergency department today for worsening anemia 1.Symptomatic anemia (likely secondary to newly discovered apple core lesion:) -IV PPI -CT scan abdomen pelvis with oral contrast demonstrates questionable apple-core lesion -hold Eliquis, ASA for now -colonoscopy 06/06.... Prep started today. NPO after midnight 2.LAURO on CKD3 -remained stable -hold Bumex present -follow renal/divalent 3.Paroxysmal atrial fibrillation -heart rate acceptable on current therapies -continue amiodorone, metoprolol 100 qd -hold Eliquis due to above -await further GI input 4.HFrEF -continue hydralaine, isordil -hold bumex ... LAURO -follow renals/divalent 5.Diabetes mellitus type 2 with hyperglycemia -acceptable control off farxiga -Lantus 10U... Lispro correctional scale -adjust as indicated 6.Hypertension -acceptable control on current therapies -adjust as indicated DNR/DNI Pneumatics Requires ongoing hospitalization to complete workup for symptomatic anemia until follow up acute kidney injury along with specialty consultation Quality Stroke Does the patient have a stroke diagnosis?: No VTE Prior VTE?: No VTE Risk Level:: Medical - moderate - high VTE Device Contraindication: N/A - Device Ordered VTE Drug Contraindication: Treatment Not Indicated
[2024-06-05 16:22] LABS: Glucose, Whole Blood 249 mg/dL (60-115)
[2024-06-05] MEDS: bisacodyL 5 MG TABLET.DR 20 MG PO (17:54)
[2024-06-05] MEDS: polyethylene glycoL 3350 17 GM POWD.PACK 119 GM PO (18:15)
[2024-06-05 20:57] LABS: Glucose, Whole Blood 197 mg/dL (60-115)
[2024-06-05] MEDS: Insulin Glargine,Hum.rec.anlog 100 UNIT/ML 10 ML VIAL 10 UNIT SUBCUT (21:09)
[2024-06-05] MEDS: Donepezil HCl 5 MG TABLET PO (21:09)
[2024-06-05] MEDS: Atorvastatin Calcium 40 MG TABLET PO (21:09)
[2024-06-06] VITALS (8 sets, daily range): BP systolic 141–175; BP diastolic 57–75; PULSE 68–74; RESP 16–18; TEMP 36.5–36.7; O2SAT 94–100
[2024-06-06] MEDS: Fluticasone/Vilanterol 100/25 BLST.W.DEV 1 PUFF INHALE (07:32)
[2024-06-06 08:04] LABS: Glucose, Whole Blood 109 mg/dL (60-115)
[2024-06-06 08:07] LABS: MANUAL DIFF FLAG NO
[2024-06-06 08:10] LABS: Basophils Absolute Auto 0.1 X10*3/uL (0.0-0.2); Basophils Percent Auto 0.7 % (0-2); Eosinophils Absolute Auto 0.3 X10*3/uL (0.0-0.4); Eosinophils Percent Auto 4.5 % (0-4); Hematocrit 30.8 % (37.0-47.0); Hemoglobin 10.1 g/dl (12.0-16.0); Imm Gran Abs Auto 0.03 X10*3/uL (0.00-0.03); Imm Gran Pct Auto 0.4 % (0.0-0.4); Lymphocytes Absolute Auto 1.1 X10*3/uL (1.2-4.9); Mean Corpuscular HGB Conc 32.8 g/dl (31.0-35.0); Mean Corpuscular Hemoglobin 28.9 pg (27.0-33.0); Mean Corpuscular Volume 88.3 fL (80.0-98.0); Mean Platelet Volume 10.7 fL (9.4-12.3); Monocytes Absolute Auto 1.1 X10*3/uL (0.1-1.2); Monocytes Percent Auto 14.8 % (2-11); Neutrophils Absolute Auto 4.5 x10*3/uL (2.0-8.3); Neutrophils Percent Auto 63.6 % (45-73); Platelet Count 261 X10*3/uL (160-400); Red Blood Count 3.49 X10*6/uL (4.20-5.50); Red Cell Distribution Width 14.4 % (11.0-16.0); White Blood Count 7.1 X10*3/uL (4.8-10.8)
[2024-06-06 08:30] LABS: Alanine Aminotransferase 16 U/L (0-31); Alkaline Phosphatase 81 U/L (39-117); Anion Gap 13 (12-20); Aspartate Amino Transferase 27 U/L (5-31); Bilirubin Total 0.3 mg/dL (0.0-1.0); Blood Urea Nitrogen 26 mg/dL (9-16); Carbon Dioxide 28 mmol/L (22-29); Chloride 92 mmol/L (96-108); Creatinine Clr Calc Pharmacy 28.4; Estimated Glomerular Filt Rate 39; Glucose Fasting 98 mg/dL (60-99); Potassium 3.7 mmol/L (3.3-5.1); Sodium 129 mmol/L (135-145); Total Protein 5.7 g/dL (6.5-8.0)
[2024-06-06] MEDS: 0.9 % Sodium Chloride Flush 3 ML SYRINGE IVFLUSH ×3 (09:12→21:21)
[2024-06-06] MEDS: Isosorbide Dinitrate 10 MG TABLET PO ×2 (09:13→21:09)
[2024-06-06] MEDS: risperiDONE 0.5 MG TABLET PO ×2 (09:13→21:09)
[2024-06-06] MEDS: hydrALAZINE HCl 50 MG TABLET PO ×2 (09:13→21:09)
[2024-06-06] MEDS: Cholecalciferol (Vitamin D3) 25 MCG TABLET PO (09:13)
[2024-06-06] MEDS: Amiodarone HCL 200 MG TABLET PO (09:19)
[2024-06-06] MEDS: Metoprolol Succinate ER 100 MG TAB.ER.24H PO (09:20)
[2024-06-06] MEDS: polyethylene glycoL 3350 17 GM POWD.PACK 119 GM PO (09:53)
[2024-06-06 11:34] LABS: Glucose, Whole Blood 132 mg/dL (60-115)
[2024-06-06 13:16] LABS: Anion Gap 10 (12-20); Blood Urea Nitrogen 22 mg/dL (9-16); Calcium 8.5 mg/dL (8.4-10.2); Carbon Dioxide 29 mmol/L (22-29); Chloride 91 mmol/L (96-108); Creatinine Clr Calc Pharmacy 28.8; Estimated Glomerular Filt Rate 39; Glucose Random 128 mg/dL (60-115); Potassium 3.9 mmol/L (3.3-5.1); Sodium 126 mmol/L (135-145)
--- NOTE | 2024-06-06 14:12 | HO.PM.IMPN ---
Subjective Subjective Date of Service: 06/06/24 Interval History: NPO for colonoscopy, offers no acute complaints chest pain, no shortness of breath, no lightheadedness or dizziness. Review of Systems all other system reviewed and are negative. Physical Exam Vital Signs: Vital Signs: Last Vital Signs Temp 97.8 F 06/06/24 08:00 Pulse 71 06/06/24 09:20 Resp 17 06/06/24 08:00 BP 152/69 H 06/06/24 09:20 Pulse Ox 95 06/06/24 08:00 O2 Del Method Nasal Cannula 06/06/24 08:00 O2 Flow Rate 2 06/06/24 08:00 Oxygen Flow Rate 4 05/31/24 11:26 BMI result Body Mass Index 21.6 Const: Other: Gen: Awake alert x3, in no acute distress HEENT: moist mucus membranes Neck: supple, no JVD Lungs: diminished, no crackles Heart: Regular Abd: soft, non-tender, non-distended, bowel sounds audible Ext: no edema Skin: warm/well-perfused Neuro: alert and oriented x3, no focal findings Psych: Appropriate affect Objective Data Active Medications Acetaminophen (Acetaminophen 325 Mg Tablet) 650 mg PO Q6H PRN PRN Reason: Pain, Mild (Pain Scale 1-3), fever or headache Albuterol Sulfate (Albuterol Sulfate 90 Mcg 8 Gm Inhaler) 2 puff INHALE Q4H PRN PRN Reason: Wheezing Amiodarone HCl (Amiodarone Hcl 200 Mg Tablet) 200 mg PO DAILY [facility] Last Admin: 06/06/24 09:19 Dose: 200 mg Documented By: MIRACLE Artificial Tears (Artificial Tears 15 Ml Drops) 2 drop EYE-BOTH Q4H PRN PRN Reason: Dry Eyes Last Admin: 06/05/24 09:19 Dose: 2 drop Documented By: ALFREDO Atorvastatin Calcium (Atorvastatin Calcium 40 Mg Tablet) 40 mg PO BEDTIME [facility] Last Admin: 06/05/24 21:09 Dose: 40 mg Documented By: PAYTON Bisacodyl (Bisacodyl 10 Mg Supp.Rect) 10 mg AL DAILY PRN PRN Reason: Constipation Donepezil HCl (Donepezil Hcl 5 Mg Tablet) 5 mg PO BEDTIME [facility] Last Admin: 06/05/24 21:09 Dose: 5 mg Documented By: PAYTON Fluticasone/Vilanterol (Fluticasone/Vilanterol 100/25 Blst.W.Dev) 1 puff INHALE RDAILY [facility] Last Admin: 06/06/24 07:32 Dose: 1 puff Documented By: AYE Glucose (Glucose Gel 15 Gm Gel..Gram.) 15 gm PO Q15M PRN; Protocol PRN Reason: per Hypoglycemia Standing Ord. Guaifenesin (Guaifenesin 200 Mg/10 Ml 10 Ml Liquid) 5 ml PO TID [facility] Last Admin: 06/06/24 09:20 Dose: Not Given Documented By: MIRACLE Non-Admin Reason: going for colonoscopy today Hydralazine HCl (Hydralazine Hcl 50 Mg Tablet) 50 mg PO BID [facility]; Protocol Last Admin: 06/06/24 09:13 Dose: 50 mg Documented By: MIRACLE Dextrose (D10) 250 mls @ 750 mls/hr IV Q15M PRN; Protocol PRN Reason: per Hypoglycemia Standing Ord. Insulin Glargine (Insulin Glargine,Hum.Rec.Anlog 100 Unit/Ml 10 Ml Vial) 10 unit SUBCUT BEDTIME [facility] Last Admin: 06/05/24 21:09 Dose: 10 unit Documented By: PAYTON Insulin Human Lispro (Insulin Lispro 100 Unit/Ml 3 Ml Vial) 0 unit SUBCUT QIDACHS [facility]; Protocol Last Admin: 06/06/24 11:55 Dose: Not Given Documented By: MIRACLE Non-Admin Reason: No Insulin Coverage Isosorbide Dinitrate (Isosorbide Dinitrate 10 Mg Tablet) 10 mg PO BID [facility]; Protocol Last Admin: 06/06/24 09:13 Dose: 10 mg Documented By: MIRACLE Melatonin (Melatonin 3 Mg Tablet) 6 mg PO BEDTIME PRN PRN Reason: Insomnia Metoprolol Succinate (Metoprolol Succinate Er 100 Mg Tab.Er.24h) 100 mg PO DAILY [facility]; Protocol Last Admin: 06/06/24 09:20 Dose: 100 mg Documented By: MIRACLE Polyethylene Glycol (Polyethylene Glycol 3350 17 Gm Powd.Pack) 17 gm PO DAILY PRN PRN Reason: Constipation Prochlorperazine Edisylate (Prochlorperazine Edisylate 10 Mg/2 Ml Vial) 5 mg IVPUSH Q4H PRN PRN Reason: Nausea and Vomiting Last Admin: 06/04/24 21:44 Dose: 5 mg Documented By: MARCOS Comments: pt reports feelin nauseated. Risperidone (Risperidone 0.5 Mg Tablet) 0.5 mg PO BID [facility] Last Admin: 06/06/24 09:13 Dose: 0.5 mg Documented By: MIRACLE Sodium Chloride (0.9 % Sodium Chloride Flush 3 Ml Syringe) 3 ml IVFLUSH QSHIFT [facility] Last Admin: 06/06/24 09:12 Dose: 3 ml Documented By: MIRACLE Trazodone HCl (Trazodone Hcl 50 Mg Tablet) 50 mg PO BEDTIME PRN PRN Reason: Insomnia Last Admin: 06/03/24 20:46 Dose: 50 mg Documented By: PAYTON Vitamin D (Cholecalciferol (Vitamin D3) 25 Mcg Tablet) 25 mcg PO DAILY [facility] Last Admin: 06/06/24 09:13 Dose: 25 mcg Documented By: MIRACLE Labs 06/06/24 07:38 06/06/24 12:29 Labs: Laboratory Results - last 24 hr 06/05/24 06/05/24 06/06/24 15:54 20:53 07:38 MCV 88.3 MCH 28.9 MCHC 32.8 RDW 14.4 Plt Count 261 MPV 10.7 Immature Gran % (Auto) 0.4 Neut % (Auto) 63.6 Lymph % (Auto) 16.0 L [place] % (Auto) 14.8 H Eos % (Auto) 4.5 H Baso % (Auto) 0.7 Lymph # (Auto) 1.1 L [place] # (Auto) 1.1 Eos # (Auto) 0.3 Baso # (Auto) 0.1 Abs Immat Gran (auto) 0.03 Absolute Neuts (auto) 4.5 Absolute Nucleated RBC 0.000 Nucleated RBC % (auto) 0.0 Anion Gap 13 Estim Creat Clear Calc 28.4 Estimated GFR 39 POC Glucose 249 H 197 H Random Glucose Fasting Glucose 98 Calcium 9.0 Total Bilirubin 0.3 AST 27 ALT 16 Alkaline Phosphatase 81 Total Protein 5.7 L Albumin 3.0 L 06/06/24 06/06/24 06/06/24 07:46 11:30 12:29 MCV MCH MCHC RDW Plt Count MPV Immature Gran % (Auto) Neut % (Auto) Lymph % (Auto) [place] % (Auto) Eos % (Auto) Baso % (Auto) Lymph # (Auto) [place] # (Auto) Eos # (Auto) Baso # (Auto) Abs Immat Gran (auto) Absolute Neuts (auto) Absolute Nucleated RBC Nucleated RBC % (auto) Anion Gap 10 L Estim Creat Clear Calc 28.8 Estimated GFR 39 POC Glucose 109 132 H Random Glucose 128 H Fasting Glucose Calcium 8.5 Total Bilirubin AST ALT Alkaline Phosphatase Total Protein Albumin Assessment and Plan (1) Colonic mass: Status: Acute (2) Anemia: Status: Acute Plan 78 year old female with a history of COPD, HFrEF, paroxysmal atrial fibrillation on Eliquis, CKD, diabetes, coronary artery disease, 2 recent admissions for atrial fibrillation with rapid ventricular response and CHF discharged to rehab on May 28 and sent back to the emergency department today for worsening anemia 1.Symptomatic anemia (likely secondary to newly discovered apple core lesion:) - no acute GI bleed noted -CT scan abdomen pelvis with oral contrast demonstrates questionable apple-core lesion - Eliquis and aspirin on hold -colonoscopy canceled due to low-sodium 126, resume diet follow H&H and rediscuss with GI regarding colonoscopy 2.LAURO on CKD3 - creatinine normalized resume Bumex 1 mg daily follow BMP 3.Paroxysmal atrial fibrillation -heart rate acceptable on current therapies -continue amiodorone, metoprolol 100 qd -hold Eliquis due to above -await further GI input 4.HFrEF -continue hydralaine, isordil and resume Bumex 1 mg daily no acute CHF exacerbation 5.Diabetes mellitus type 2 with hyperglycemia -acceptable control on Lantus 10 units and insulin sliding scale, off farxiga -adjust as indicated 6.Hypertension -acceptable control on current therapies -adjust as indicated 7. acute hyponatremia ? etiology stable blood sugars, check serum osmolality, resume diuretics, follow BMP. DNR/DNI Pneumatics Requires ongoing hospitalization to complete workup for symptomatic anemia monitor electrolytes and CBC, Quality Stroke Does the patient have a stroke diagnosis?: No VTE Prior VTE?: No VTE Risk Level:: Medical - moderate - high VTE Device Contraindication: N/A - Device Ordered VTE Drug Contraindication: Treatment Not Indicated
--- NOTE | 2024-06-06 15:42 | MHC.CM.PN ---
EMR reviewed and per MD rounds, pt is not medically cleared for discharge due to management of symptomatic anemia. This CM received a phone call from pts daughter/HCP Marian, she would like to be contact with discharge planning.
[2024-06-06 15:45] LABS: Glucose, Whole Blood 102 mg/dL (60-115)
[2024-06-06 18:14] LABS: TSH reflex Free T4 2.15 uIU/mL (0.32-4.0)
[2024-06-06 18:20] LABS: Glucose, Whole Blood 146 mg/dL (60-115)
[2024-06-06 18:24] LABS: Osmolality, Serum 268 mosm/kg (281-305)
[2024-06-06] MEDS: Bumetanide 1 MG TABLET PO (18:45)
[2024-06-06 20:35] LABS: Glucose, Whole Blood 246 mg/dL (60-115)
[2024-06-06] MEDS: Atorvastatin Calcium 40 MG TABLET PO (21:09)
[2024-06-06] MEDS: Donepezil HCl 5 MG TABLET PO (21:09)
[2024-06-06] MEDS: Insulin Lispro 100 UNIT/ML 3 ML VIAL SUBCUT (21:13)
[2024-06-07] VITALS (8 sets, daily range): BP systolic 106–166; BP diastolic 26–72; PULSE 58–75; RESP 16–20; TEMP 36.1–36.9; O2SAT 96–100
[2024-06-07] MEDS: Pantoprazole Sodium 40 MG/10 ML VIAL IVPUSH (05:12)
--- NOTE | 2024-06-07 05:55 | PC.NURSE ---
damien held at hs pt is not eating much and shes NPO at 12 MN.
[2024-06-07 06:27] LABS: MANUAL DIFF FLAG NO
[2024-06-07 06:40] LABS: Basophils Absolute Auto 0.1 X10*3/uL (0.0-0.2); Basophils Percent Auto 0.6 % (0-2); Eosinophils Absolute Auto 0.3 X10*3/uL (0.0-0.4); Eosinophils Percent Auto 3.2 % (0-4); Hematocrit 32.6 % (37.0-47.0); Hemoglobin 10.5 g/dl (12.0-16.0); Imm Gran Abs Auto 0.03 X10*3/uL (0.00-0.03); Imm Gran Pct Auto 0.4 % (0.0-0.4); Lymphocytes Absolute Auto 0.9 X10*3/uL (1.2-4.9); Lymphocytes Percent Auto 10.6 % (20-40); Mean Corpuscular HGB Conc 32.2 g/dl (31.0-35.0); Mean Corpuscular Hemoglobin 28.5 pg (27.0-33.0); Mean Corpuscular Volume 88.6 fL (80.0-98.0); Mean Platelet Volume 10.6 fL (9.4-12.3); Monocytes Absolute Auto 1.1 X10*3/uL (0.1-1.2); Monocytes Percent Auto 13.4 % (2-11); Neutrophils Percent Auto 71.8 % (45-73); Platelet Count 277 X10*3/uL (160-400); Red Blood Count 3.68 X10*6/uL (4.20-5.50); Red Cell Distribution Width 14.2 % (11.0-16.0); White Blood Count 8.4 X10*3/uL (4.8-10.8)
[2024-06-07 06:53] LABS: Alanine Aminotransferase 17 U/L (0-31); Alkaline Phosphatase 90 U/L (39-117); Anion Gap 12 (12-20); Aspartate Amino Transferase 27 U/L (5-31); Bilirubin Total 0.4 mg/dL (0.0-1.0); Blood Urea Nitrogen 18 mg/dL (9-16); Calcium 8.6 mg/dL (8.4-10.2); Carbon Dioxide 30 mmol/L (22-29); Chloride 95 mmol/L (96-108); Creatinine Clr Calc Pharmacy 35.7; Estimated Glomerular Filt Rate 50; Glucose Fasting 85 mg/dL (60-99); Glucose Random 86 mg/dL (60-115); Potassium 3.6 mmol/L (3.3-5.1); Sodium 133 mmol/L (135-145); Total Protein 5.7 g/dL (6.5-8.0)
[2024-06-07 07:23] LABS: Glucose, Whole Blood 97 mg/dL (60-115)
[2024-06-07] MEDS: risperiDONE 0.5 MG TABLET PO ×2 (09:13→20:59)
[2024-06-07] MEDS: Bumetanide 1 MG TABLET PO (09:13)
[2024-06-07] MEDS: Amiodarone HCL 200 MG TABLET PO (09:13)
[2024-06-07] MEDS: Cholecalciferol (Vitamin D3) 25 MCG TABLET PO (09:13)
[2024-06-07] MEDS: Isosorbide Dinitrate 10 MG TABLET PO ×2 (09:13→20:59)
[2024-06-07] MEDS: 0.9 % Sodium Chloride Flush 3 ML SYRINGE IVFLUSH ×3 (09:14→21:00)
[2024-06-07] MEDS: Metoprolol Succinate ER 100 MG TAB.ER.24H PO (09:14)
[2024-06-07] MEDS: hydrALAZINE HCl 50 MG TABLET PO ×2 (09:14→20:59)
[2024-06-07 11:34] LABS: Glucose, Whole Blood 114 mg/dL (60-115)
--- NOTE | 2024-06-07 11:53 | P.PNGI_ITS ---
Subjective Subjective Date of Service: 06/07/24 Interval History: HGB has been stable denies abdo pain no nausea no melena or rectal bleeding Critical Care Time (minutes): 0 Physical Exam 2 Vital Signs: Vital Signs: Last Vital Signs Temp 98.0 F 06/07/24 11:42 Pulse 72 06/07/24 11:42 Resp 16 06/07/24 11:42 BP 166/64 H 06/07/24 11:42 Pulse Ox 96 06/07/24 11:42 O2 Del Method Nasal Cannula 06/07/24 11:42 O2 Flow Rate 3 06/07/24 11:42 Oxygen Flow Rate 4 05/31/24 11:26 BMI result Body Mass Index 21.6 EXAM: GENERAL: The patient is frail, VITAL SIGNS:see workflow HEENT: Nonicteric sclerae, PERRLA, EOMI. Oropharynx clear. Moist mucous membranes. Conjunctivae appear well perfused. No thyroid mass. CHEST: Chest wall is nontender. HEART: Regular rate and rhythm without murmurs. LUNGS: Clear to auscultation bilaterally, reduced A/E ABDOMEN: Soft, positive bowel sounds, nontender, no organomegaly.no flank tenderness SKIN: bruises on arms NEUROLOGIC: Cranial nerves II-XII intact without motor/sensory deficit. Psych: normal affect Objective Data Labs 06/07/24 06:14 06/07/24 06:14 Labs: Laboratory Results - last 24 hr 06/06/24 06/06/24 06/06/24 12:29 15:38 17:22 WBC RBC Hgb Hct MCV MCH MCHC RDW Plt Count MPV Immature Gran % (Auto) Neut % (Auto) Lymph % (Auto) [place] % (Auto) Eos % (Auto) Baso % (Auto) Lymph # (Auto) [place] # (Auto) Eos # (Auto) Baso # (Auto) Abs Immat Gran (auto) Absolute Neuts (auto) Absolute Nucleated RBC Nucleated RBC % (auto) Sodium 126 L Potassium 3.9 Chloride 91 L Carbon Dioxide 29 Anion Gap 10 L BUN 22 H Creatinine 1.31 Estim Creat Clear Calc 28.8 Estimated GFR 39 POC Glucose 102 Random Glucose 128 H Fasting Glucose Osmolality 268 L Calcium 8.5 Total Bilirubin AST ALT Alkaline Phosphatase Total Protein Albumin TSH 2.15 06/06/24 06/06/24 06/07/24 18:17 20:30 06:14 WBC 8.4 RBC 3.68 L Hgb 10.5 L Hct 32.6 L MCV 88.6 MCH 28.5 MCHC 32.2 RDW 14.2 Plt Count 277 MPV 10.6 Immature Gran % (Auto) 0.4 Neut % (Auto) 71.8 Lymph % (Auto) 10.6 L [place] % (Auto) 13.4 H Eos % (Auto) 3.2 Baso % (Auto) 0.6 Lymph # (Auto) 0.9 L [place] # (Auto) 1.1 Eos # (Auto) 0.3 Baso # (Auto) 0.1 Abs Immat Gran (auto) 0.03 Absolute Neuts (auto) 6.0 Absolute Nucleated RBC 0.000 Nucleated RBC % (auto) 0.0 Sodium 133 L Potassium 3.6 Chloride 95 L Carbon Dioxide 30 H Anion Gap 12 BUN 18 H Creatinine 1.06 Estim Creat Clear Calc 35.7 Estimated GFR 50 POC Glucose 146 H 246 H Random Glucose 86 Fasting Glucose 85 Osmolality Calcium 8.6 Total Bilirubin 0.4 AST 27 ALT 17 Alkaline Phosphatase 90 Total Protein 5.7 L Albumin 3.0 L TSH 06/07/24 06/07/24 07:03 11:22 WBC RBC Hgb Hct MCV MCH MCHC RDW Plt Count MPV Immature Gran % (Auto) Neut % (Auto) Lymph % (Auto) [place] % (Auto) Eos % (Auto) Baso % (Auto) Lymph # (Auto) [place] # (Auto) Eos # (Auto) Baso # (Auto) Abs Immat Gran (auto) Absolute Neuts (auto) Absolute Nucleated RBC Nucleated RBC % (auto) Sodium Potassium Chloride Carbon Dioxide Anion Gap BUN Creatinine Estim Creat Clear Calc Estimated GFR POC Glucose 97 114 Random Glucose Fasting Glucose Osmolality Calcium Total Bilirubin AST ALT Alkaline Phosphatase Total Protein Albumin TSH Procedures Date of Service Date of Service: 06/07/24 Progress Note: A&P Assessment and plan (1) Acute GI bleeding: Status: Acute Plan 1/ Acute blood loss anemia -hgb stable, concern for colon mass or lesion, Na is better today, had been low with prep PLAN: 1/ colonoscopy today and depending on how she responds to anesthesia possible EGD but she is high risk due to her cardioresp illnesses Time Spent With Patient Time: Total time managing care of this patient today ____ minutes. Quality Stroke Does the patient have a stroke diagnosis?: No VTE Prior VTE?: No VTE Risk Level:: Medical - moderate - high VTE Device Contraindication: N/A - Device Ordered VTE Drug Contraindication: Treatment Not Indicated
--- NOTE | 2024-06-07 11:53 | MHC.SHP ---
Pre-Procedural Eval Section A - 24 Hr Update-Section A only Date of Service: 06/07/24 The patient is an INPATIENT: Yes The patient has been examined within 24 hours of the surgical procedure. The History & Physical has been completed within 30 days and I have reviewed it.: Yes Section B - Complete if H&P > 30 days Chief Complaint: anemia Allergies: Allergies Allergy/AdvReac Type Severity Reaction Status Date / Time silver Allergy Unknown SKIN TEARS Verified 05/31/24 11:28 [From TEGADERM AG MESH] TAPE,PAPER Allergy Mild Itching Uncoded 05/31/24 11:28 Plan I have reviewed the history and physical and performed a pertinent physical examination on my patient. No changes have occurred unless specified. Time Spent With Patient Time: Total time managing care of this patient today ____ minutes.
--- NOTE | 2024-06-07 12:02 | P.CONAN_ITS ---
HPI - Anesthesia Eval Consult details Narrative: anemia , for colon screen as work up [facility] Active Problems Active Problems: All Active Problems (Updated 06/05/24 @ 00:02 by Ricardo Bender) Colonic mass (Acute) Hyperglycemia (Acute) Anemia (Acute) Acute GI bleeding (Acute) Tobacco abuse (Chronic) Hallucinations (Acute) Renal cyst (Acute) PAD (peripheral artery disease) (Acute) HTN (hypertension) (Acute) Diabetic foot ulcer (Acute) Hiatal hernia (Acute) GERD (gastroesophageal reflux disease) (Acute) Past Medical History Medical History CKD (chronic kidney disease) stage 3, GFR 30-59 ml/min PAD (peripheral artery disease) Diabetic ketoacidosis Major depressive disorder, recurrent, moderate Adjustment disorder CAD (coronary artery disease) GERD (gastroesophageal reflux disease) HTN (hypertension) Carotid artery occlusion Diabetes Hiatal hernia GERD (gastroesophageal reflux disease) Family History Family History Father No problems noted. Mother No problems noted. Family history of problems with anesthesia: No Surgical History Surgical History History of esophagogastroduodenoscopy (EGD) History of Problems with Anesthesia: No Social History Social History Household Members: None Housing: Apartment Are you a primary lawn care technician to a significant other at home: No Do you presently have visiting nurse or other home services: No Alcohol intake: never Comment: patient refuses to have person standby when using bathroom Patient Tobacco Use Status: Former Tobacco user Tobacco use type: Cigarette Cigarette Packs Per Day: 1.5 Cigarettes Per Day: 30.0 Years Smoked: 40 Smoked in Last 30 Days: No Second Hand Smoke Exposure: No Use of substances other than those prescribed or required for medical reasons: No Substance Use Type: Marijuana Currently Displaying Signs/Symptoms of Drug Intoxication Withdrawal: No Any prior treatment program specific to substance use: No Have you been hit, kicked, punched, or otherwise hurt by someone within the past year? If so, by whom?: No Do you feel safe in your current relationship?: No Current Relationship Is there a partner from a previous relationship who is making you feel unsafe now?: No Are you made to feel afraid or neglected: No Are you DNR?: Yes Advance Directives: Yes Advance Directives on File: Yes Advance Directives Date on File: 01/14/23 Do you have a plan to hurt others: No Plan Recently lost weight without trying: No How much weight loss: Not applicable Eating poorly because of decreased appetite: Yes Nutrition screen score: 1 Nutrition Risks: No Nutritional Risk Patient : No : No Poor oral hygiene: No service: No Current occupational status: retired Sexual orientation: Straight/Heterosexual Meds Allergies Allergy/AdvReac Type Severity Reaction Status Date / Time silver Allergy Unknown SKIN TEARS Verified 05/31/24 11:28 [From [employer] MESH] TAPE,PAPER Allergy Mild Itching Uncoded 05/31/24 11:28 Active Medications: Current Medications Acetaminophen (Acetaminophen 325 Mg Tablet) 650 mg PO Q6H PRN PRN Reason: Pain, Mild (Pain Scale 1-3), fever or headache Albuterol Sulfate (Albuterol Sulfate 90 Mcg 8 Gm Inhaler) 2 puff INHALE Q4H PRN PRN Reason: Wheezing Amiodarone HCl (Amiodarone Hcl 200 Mg Tablet) 200 mg PO DAILY [facility] Last Admin: 06/07/24 09:13 Dose: 200 mg Artificial Tears (Artificial Tears 15 Ml Drops) 2 drop EYE-BOTH Q4H PRN PRN Reason: Dry Eyes Last Admin: 06/05/24 09:19 Dose: 2 drop Atorvastatin Calcium (Atorvastatin Calcium 40 Mg Tablet) 40 mg PO BEDTIME [facility] Last Admin: 06/06/24 21:09 Dose: 40 mg Bisacodyl (Bisacodyl 10 Mg Supp.Rect) 10 mg KS DAILY PRN PRN Reason: Constipation Bumetanide (Bumetanide 1 Mg Tablet) 1 mg PO DAILY [facility]; Protocol Last Admin: 06/07/24 09:13 Dose: 1 mg Donepezil HCl (Donepezil Hcl 5 Mg Tablet) 5 mg PO BEDTIME [facility] Last Admin: 06/06/24 21:09 Dose: 5 mg Fluticasone/Vilanterol (Fluticasone/Vilanterol 100/25 Blst.W.Dev) 1 puff INHALE RDAILY [facility] Last Admin: 06/07/24 11:06 Dose: Not Given Glucose (Glucose Gel 15 Gm Gel..Gram.) 15 gm PO Q15M PRN; Protocol PRN Reason: per Hypoglycemia Standing Ord. Guaifenesin (Guaifenesin 200 Mg/10 Ml 10 Ml Liquid) 5 ml PO TID [facility] Last Admin: 06/07/24 09:14 Dose: Not Given Hydralazine HCl (Hydralazine Hcl 50 Mg Tablet) 50 mg PO BID [facility]; Protocol Last Admin: 06/07/24 09:14 Dose: 50 mg Dextrose (D10) 250 mls @ 750 mls/hr IV Q15M PRN; Protocol PRN Reason: per Hypoglycemia Standing Ord. Insulin Glargine (Insulin Glargine,Hum.Rec.Anlog 100 Unit/Ml 10 Ml Vial) 10 unit SUBCUT BEDTIME [facility] Last Admin: 06/06/24 21:54 Dose: Not Given Insulin Human Lispro (Insulin Lispro 100 Unit/Ml 3 Ml Vial) 0 unit SUBCUT QIDACHS [facility]; Protocol Last Admin: 06/07/24 11:36 Dose: Not Given Isosorbide Dinitrate (Isosorbide Dinitrate 10 Mg Tablet) 10 mg PO BID [facility]; Protocol Last Admin: 06/07/24 09:13 Dose: 10 mg Melatonin (Melatonin 3 Mg Tablet) 6 mg PO BEDTIME PRN PRN Reason: Insomnia Metoprolol Succinate (Metoprolol Succinate Er 100 Mg Tab.Er.24h) 100 mg PO DAILY [facility]; Protocol Last Admin: 06/07/24 09:14 Dose: 100 mg Pantoprazole Sodium (Pantoprazole Sodium 40 Mg/10 Ml Vial) 40 mg IVPUSH DAILY@0630 [facility] Last Admin: 06/07/24 05:12 Dose: 40 mg Polyethylene Glycol (Polyethylene Glycol 3350 17 Gm Powd.Pack) 17 gm PO DAILY PRN PRN Reason: Constipation Prochlorperazine Edisylate (Prochlorperazine Edisylate 10 Mg/2 Ml Vial) 5 mg IVPUSH Q4H PRN PRN Reason: Nausea and Vomiting Last Admin: 06/04/24 21:44 Dose: 5 mg Risperidone (Risperidone 0.5 Mg Tablet) 0.5 mg PO BID [facility] Last Admin: 06/07/24 09:13 Dose: 0.5 mg Sodium Chloride (0.9 % Sodium Chloride Flush 3 Ml Syringe) 3 ml IVFLUSH QSHIFT [facility] Last Admin: 06/07/24 09:14 Dose: 3 ml Trazodone HCl (Trazodone Hcl 50 Mg Tablet) 50 mg PO BEDTIME PRN PRN Reason: Insomnia Last Admin: 06/03/24 20:46 Dose: 50 mg Vitamin D (Cholecalciferol (Vitamin D3) 25 Mcg Tablet) 25 mcg PO DAILY [facility] Last Admin: 06/07/24 09:13 Dose: 25 mcg Home Medications ?Medication ?Instructions ?Recorded ?Confirmed ?Last Taken ?Type dapagliflozin propanediol 5 mg 5 mg PO DAILY 07/31/23 05/31/24 05/18/24 History tablet (Farxiga) fluticasone furoate 100 1 ea inhalation DAILY 04/16/24 05/31/24 05/18/24 History mcg-vilanterol 25 mcg/dose inhalation powder (Breo Ellipta) insulin glargine 100 unit/mL 12 unit subcut BEDTIME 04/16/24 05/31/24 05/09/24 History subcutaneous solution (Lantus U-100 Insulin) acetaminophen 325 mg tablet 650 mg PO Q4H PRN Pain 05/31/24 05/31/24 Unknown History acetaminophen 325 mg tablet 650 mg PO Q6H PRN Fever 05/31/24 05/31/24 Unknown History albuterol sulfate 90 mcg/actuation 2 puff inhalation Q4H PRN Wheezing 05/31/24 05/31/24 Unknown History aerosol inhaler amiodarone 200 mg tablet 200 mg PO DAILY 05/31/24 05/31/24 Unknown History bisacodyl 10 mg rectal suppository 10 mg KS DAILY PRN Constipation 05/31/24 05/31/24 Unknown History dextrose 40 % oral gel 10 g PO Q15M PRN BG< 70 05/31/24 05/31/24 Unknown History glucagon 1 mg solution for 1 mg subcut Q15M PRN BG Less then 05/31/24 05/31/24 Unknown History injection 70 magnesium hydroxide 400 mg/5 mL 30 ml PO DAILY PRN Constipation 05/31/24 05/31/24 Unknown History oral suspension (Milk of Magnesia) polyethylene glycol 3350 17 gram 17 g PO DAILY PRN Constipation 05/31/24 05/31/24 Unknown History oral powder packet sodium phosphates 19 gram-7 118 ml KS DAILY PRN 05/31/24 05/31/24 Unknown History gram/118 mL enema (Fleet Enema) CONSTIPATION/NO RESULT FROM DULCOLAX Exam Height,Weight and Vital Signs: Height 5 ft 2 in Weight 53.5 kg Last Vital Signs Temp 98.0 F 06/07/24 11:42 Pulse 72 06/07/24 11:42 Resp 16 06/07/24 11:42 BP 166/64 H 06/07/24 11:42 Pulse Ox 96 06/07/24 11:42 O2 Del Method Nasal Cannula 06/07/24 11:42 O2 Flow Rate 3 06/07/24 11:42 Oxygen Flow Rate 4 05/31/24 11:26 Pertinent Lab Results Pertinent Lab Results: Laboratory Tests 05/31/24 05/31/24 05/31/24 11:42 12:02 12:42 WBC 9.1 RBC 2.40 L Hgb 7.0 L* Hct 21.6 L MCV 90.0 MCH 29.2 MCHC 32.4 RDW 14.6 Plt Count 272 MPV 10.9 Immature Gran % (Auto) 0.3 Neut % (Auto) 75.0 H Lymph % (Auto) 11.0 L [place] % (Auto) 10.9 Eos % (Auto) 2.4 Baso % (Auto) 0.4 Lymph # (Auto) 1.0 L [place] # (Auto) 1.0 Eos # (Auto) 0.2 Baso # (Auto) 0.0 Abs Immat Gran (auto) 0.03 Absolute Neuts (auto) 6.8 Absolute Nucleated RBC 0.000 Nucleated RBC % (auto) 0.0 PT 14.9 H D INR 1.3 H Sodium 127 L Potassium 4.4 Chloride 90 L Carbon Dioxide 30 H Anion Gap 11 L BUN 29 H Creatinine 1.93 H Estim Creat Clear Calc 19.6 Estimated GFR 25 POC Glucose Random Glucose 390 H* Fasting Glucose Osmolality Calcium 8.6 D Iron TIBC % Saturation Unsat Iron Binding Ferritin Total Bilirubin 0.4 AST 29 ALT 12 Alkaline Phosphatase 79 Troponin I High Sens 37.9 H B-Natriuretic Peptide 813 H Total Protein 5.7 L Albumin 3.2 L Vitamin B12 Folate Beta-Hydroxybutyrate 0.12 TSH Stool Occult Blood POSITIVE Blood Type AB Positive Antibody Screen NEGATIVE Crossmatch See Detail 05/31/24 05/31/24 05/31/24 14:40 17:24 19:43 WBC RBC Hgb Hct MCV MCH MCHC RDW Plt Count MPV Immature Gran % (Auto) Neut % (Auto) Lymph % (Auto) [place] % (Auto) Eos % (Auto) Baso % (Auto) Lymph # (Auto) [place] # (Auto) Eos # (Auto) Baso # (Auto) Abs Immat Gran (auto) Absolute Neuts (auto) Absolute Nucleated RBC Nucleated RBC % (auto) PT INR Sodium Potassium Chloride Carbon Dioxide Anion Gap BUN Creatinine Estim Creat Clear Calc Estimated GFR POC Glucose 347 H 259 H 197 H Random Glucose Fasting Glucose Osmolality Calcium Iron TIBC % Saturation Unsat Iron Binding Ferritin Total Bilirubin AST ALT Alkaline Phosphatase Troponin I High Sens B-Natriuretic Peptide Total Protein Albumin Vitamin B12 Folate Beta-Hydroxybutyrate TSH Stool Occult Blood Blood Type Antibody Screen Crossmatch 05/31/24 06/01/24 06/01/24 21:57 07:02 07:12 WBC 10.9 H RBC 3.99 L D Hgb 11.4 L D Hct 34.3 L D MCV 86.0 MCH 28.6 MCHC 33.2 RDW 15.1 Plt Count 246 MPV 11.4 Immature Gran % (Auto) Neut % (Auto) Lymph % (Auto) [place] % (Auto) Eos % (Auto) Baso % (Auto) Lymph # (Auto) [place] # (Auto) Eos # (Auto) Baso # (Auto) Abs Immat Gran (auto) Absolute Neuts (auto) Absolute Nucleated RBC 0.000 Nucleated RBC % (auto) 0.0 PT INR Sodium 135 Potassium 4.1 Chloride 96 Carbon Dioxide 27 Anion Gap 16 BUN 24 H Creatinine 1.57 H Estim Creat Clear Calc 24.1 Estimated GFR 32 POC Glucose 171 H 146 H Random Glucose 141 H Fasting Glucose Osmolality Calcium 8.8 Iron 78 TIBC 287 % Saturation 27 Unsat Iron Binding 209 Ferritin 85 Total Bilirubin AST ALT Alkaline Phosphatase Troponin I High Sens B-Natriuretic Peptide Total Protein Albumin Vitamin B12 Folate Beta-Hydroxybutyrate TSH Stool Occult Blood Blood Type Antibody Screen Crossmatch 06/01/24 06/01/24 06/01/24 10:32 10:59 16:20 WBC RBC Hgb Hct MCV MCH MCHC RDW Plt Count MPV Immature Gran % (Auto) Neut % (Auto) Lymph % (Auto) [place] % (Auto) Eos % (Auto) Baso % (Auto) Lymph # (Auto) [place] # (Auto) Eos # (Auto) Baso # (Auto) Abs Immat Gran (auto) Absolute Neuts (auto) Absolute Nucleated RBC Nucleated RBC % (auto) PT INR Sodium Potassium Chloride Carbon Dioxide Anion Gap BUN Creatinine Estim Creat Clear Calc Estimated GFR POC Glucose 298 H 153 H Random Glucose Fasting Glucose Osmolality Calcium Iron TIBC % Saturation Unsat Iron Binding Ferritin Total Bilirubin AST ALT Alkaline Phosphatase Troponin I High Sens B-Natriuretic Peptide Total Protein Albumin Vitamin B12 406 Folate 11.8 Beta-Hydroxybutyrate TSH Stool Occult Blood Blood Type Antibody Screen Crossmatch 06/01/24 06/02/24 06/02/24 20:29 05:44 07:12 WBC 10.5 RBC 3.71 L Hgb 10.8 L Hct 32.0 L MCV 86.3 MCH 29.1 MCHC 33.8 RDW 15.0 Plt Count 239 MPV 11.0 Immature Gran % (Auto) 0.4 Neut % (Auto) 73.9 H Lymph % (Auto) 10.2 L [place] % (Auto) 13.3 H Eos % (Auto) 1.8 Baso % (Auto) 0.4 Lymph # (Auto) 1.1 L [place] # (Auto) 1.4 H Eos # (Auto) 0.2 Baso # (Auto) 0.0 Abs Immat Gran (auto) 0.04 H Absolute Neuts (auto) 7.8 Absolute Nucleated RBC 0.000 Nucleated RBC % (auto) 0.0 PT INR Sodium 131 L Potassium 3.9 Chloride 92 L Carbon Dioxide 28 Anion Gap 15 BUN 27 H Creatinine 1.68 H Estim Creat Clear Calc 22.5 Estimated GFR 30 POC Glucose 132 H 166 H Random Glucose Fasting Glucose 199 H Osmolality Calcium 8.9 Iron TIBC % Saturation Unsat Iron Binding Ferritin Total Bilirubin 0.4 AST 18 ALT 13 Alkaline Phosphatase 93 Troponin I High Sens B-Natriuretic Peptide Total Protein 5.9 L Albumin 3.1 L Vitamin B12 Folate Beta-Hydroxybutyrate TSH Stool Occult Blood Blood Type Antibody Screen Crossmatch 06/02/24 06/02/24 06/02/24 12:07 16:07 21:38 WBC RBC Hgb Hct MCV MCH MCHC RDW Plt Count MPV Immature Gran % (Auto) Neut % (Auto) Lymph % (Auto) [place] % (Auto) Eos % (Auto) Baso % (Auto) Lymph # (Auto) [place] # (Auto) Eos # (Auto) Baso # (Auto) Abs Immat Gran (auto) Absolute Neuts (auto) Absolute Nucleated RBC Nucleated RBC % (auto) PT INR Sodium Potassium Chloride Carbon Dioxide Anion Gap BUN Creatinine Estim Creat Clear Calc Estimated GFR POC Glucose 161 H 274 H 167 H Random Glucose Fasting Glucose Osmolality Calcium Iron TIBC % Saturation Unsat Iron Binding Ferritin Total Bilirubin AST ALT Alkaline Phosphatase Troponin I High Sens B-Natriuretic Peptide Total Protein Albumin Vitamin B12 Folate Beta-Hydroxybutyrate TSH Stool Occult Blood Blood Type Antibody Screen Crossmatch 06/03/24 06/03/24 06/03/24 07:16 11:20 11:47 WBC 8.4 RBC 3.79 L Hgb 10.9 L Hct 33.2 L MCV 87.6 MCH 28.8 MCHC 32.8 RDW 14.9 Plt Count 233 MPV 10.9 Immature Gran % (Auto) 0.2 Neut % (Auto) 77.2 H Lymph % (Auto) 8.2 L [place] % (Auto) 12.2 H Eos % (Auto) 1.8 Baso % (Auto) 0.4 Lymph # (Auto) 0.7 L [place] # (Auto) 1.0 Eos # (Auto) 0.2 Baso # (Auto) 0.0 Abs Immat Gran (auto) 0.02 Absolute Neuts (auto) 6.5 Absolute Nucleated RBC 0.000 Nucleated RBC % (auto) 0.0 PT INR Sodium 131 L Potassium 4.1 Chloride 92 L Carbon Dioxide 28 Anion Gap 15 BUN 22 H Creatinine 1.57 H Estim Creat Clear Calc 24.1 Estimated GFR 32 POC Glucose 136 H 280 H Random Glucose Fasting Glucose 278 H Osmolality Calcium 8.4 Iron TIBC % Saturation Unsat Iron Binding Ferritin Total Bilirubin 0.4 AST 24 ALT 11 Alkaline Phosphatase 88 Troponin I High Sens B-Natriuretic Peptide Total Protein 6.2 L Albumin 3.2 L Vitamin B12 Folate Beta-Hydroxybutyrate TSH Stool Occult Blood Blood Type Antibody Screen Crossmatch 06/03/24 06/03/24 06/04/24 16:53 20:26 06:25 WBC RBC Hgb Hct MCV MCH MCHC RDW Plt Count MPV Immature Gran % (Auto) Neut % (Auto) Lymph % (Auto) [place] % (Auto) Eos % (Auto) Baso % (Auto) Lymph # (Auto) [place] # (Auto) Eos # (Auto) Baso # (Auto) Abs Immat Gran (auto) Absolute Neuts (auto) Absolute Nucleated RBC Nucleated RBC % (auto) PT INR Sodium 133 L Potassium 4.2 Chloride 95 L Carbon Dioxide 28 Anion Gap 14 BUN 25 H Creatinine 1.55 H Estim Creat Clear Calc 24.4 Estimated GFR 33 POC Glucose 182 H 223 H Random Glucose Fasting Glucose 151 H Osmolality Calcium 8.5 Iron TIBC % Saturation Unsat Iron Binding Ferritin Total Bilirubin 0.4 AST 27 ALT 10 Alkaline Phosphatase 86 Troponin I High Sens B-Natriuretic Peptide Total Protein 6.4 L Albumin 3.2 L Vitamin B12 Folate Beta-Hydroxybutyrate TSH Stool Occult Blood Blood Type Antibody Screen Crossmatch 06/04/24 06/04/24 06/04/24 06:26 07:23 11:28 WBC 8.7 RBC 3.72 L Hgb 10.8 L Hct 32.8 L MCV 88.2 MCH 29.0 MCHC 32.9 RDW 14.6 Plt Count 278 MPV 11.1 Immature Gran % (Auto) 0.2 Neut % (Auto) 69.9 Lymph % (Auto) 11.9 L [place] % (Auto) 14.6 H Eos % (Auto) 2.9 Baso % (Auto) 0.5 Lymph # (Auto) 1.0 L [place] # (Auto) 1.3 H Eos # (Auto) 0.3 Baso # (Auto) 0.0 Abs Immat Gran (auto) 0.02 Absolute Neuts (auto) 6.1 Absolute Nucleated RBC 0.000 Nucleated RBC % (auto) 0.0 PT INR Sodium Potassium Chloride Carbon Dioxide Anion Gap BUN Creatinine Estim Creat Clear Calc Estimated GFR POC Glucose 144 H 298 H Random Glucose Fasting Glucose Osmolality Calcium Iron TIBC % Saturation Unsat Iron Binding Ferritin Total Bilirubin AST ALT Alkaline Phosphatase Troponin I High Sens B-Natriuretic Peptide Total Protein Albumin Vitamin B12 Folate Beta-Hydroxybutyrate TSH Stool Occult Blood Blood Type Antibody Screen Crossmatch 06/04/24 06/04/24 06/05/24 16:03 21:32 07:40 WBC RBC Hgb Hct MCV MCH MCHC RDW Plt Count MPV Immature Gran % (Auto) Neut % (Auto) Lymph % (Auto) [place] % (Auto) Eos % (Auto) Baso % (Auto) Lymph # (Auto) [place] # (Auto) Eos # (Auto) Baso # (Auto) Abs Immat Gran (auto) Absolute Neuts (auto) Absolute Nucleated RBC Nucleated RBC % (auto) PT INR Sodium Potassium Chloride Carbon Dioxide Anion Gap BUN Creatinine Estim Creat Clear Calc Estimated GFR POC Glucose 314 H 252 H 117 H Random Glucose Fasting Glucose Osmolality Calcium Iron TIBC % Saturation Unsat Iron Binding Ferritin Total Bilirubin AST ALT Alkaline Phosphatase Troponin I High Sens B-Natriuretic Peptide Total Protein Albumin Vitamin B12 Folate Beta-Hydroxybutyrate TSH Stool Occult Blood Blood Type Antibody Screen Crossmatch 06/05/24 06/05/24 06/05/24 07:43 11:46 15:54 WBC 8.2 RBC 3.78 L Hgb 10.9 L Hct 33.4 L MCV 88.4 MCH 28.8 MCHC 32.6 RDW 14.5 Plt Count 280 MPV 10.5 Immature Gran % (Auto) 0.4 Neut % (Auto) 70.5 Lymph % (Auto) 10.8 L [place] % (Auto) 14.8 H Eos % (Auto) 3.1 Baso % (Auto) 0.4 Lymph # (Auto) 0.9 L [place] # (Auto) 1.2 Eos # (Auto) 0.3 Baso # (Auto) 0.0 Abs Immat Gran (auto) 0.03 Absolute Neuts (auto) 5.8 Absolute Nucleated RBC 0.000 Nucleated RBC % (auto) 0.0 PT INR Sodium 132 L Potassium 4.1 Chloride 94 L Carbon Dioxide 28 Anion Gap 14 BUN 26 H Creatinine 1.41 H Estim Creat Clear Calc 26.8 Estimated GFR 36 POC Glucose 210 H 249 H Random Glucose Fasting Glucose 117 H Osmolality Calcium 9.4 D Iron TIBC % Saturation Unsat Iron Binding Ferritin Total Bilirubin 0.4 AST 27 ALT 11 Alkaline Phosphatase 83 Troponin I High Sens B-Natriuretic Peptide Total Protein 6.1 L Albumin 3.1 L Vitamin B12 Folate Beta-Hydroxybutyrate TSH Stool Occult Blood Blood Type Antibody Screen Crossmatch 06/05/24 06/06/24 06/06/24 20:53 07:38 07:46 WBC 7.1 RBC 3.49 L Hgb 10.1 L Hct 30.8 L MCV 88.3 MCH 28.9 MCHC 32.8 RDW 14.4 Plt Count 261 MPV 10.7 Immature Gran % (Auto) 0.4 Neut % (Auto) 63.6 Lymph % (Auto) 16.0 L [place] % (Auto) 14.8 H Eos % (Auto) 4.5 H Baso % (Auto) 0.7 Lymph # (Auto) 1.1 L [place] # (Auto) 1.1 Eos # (Auto) 0.3 Baso # (Auto) 0.1 Abs Immat Gran (auto) 0.03 Absolute Neuts (auto) 4.5 Absolute Nucleated RBC 0.000 Nucleated RBC % (auto) 0.0 PT INR Sodium 129 L Potassium 3.7 Chloride 92 L Carbon Dioxide 28 Anion Gap 13 BUN 26 H Creatinine 1.33 Estim Creat Clear Calc 28.4 Estimated GFR 39 POC Glucose 197 H 109 Random Glucose Fasting Glucose 98 Osmolality Calcium 9.0 Iron TIBC % Saturation Unsat Iron Binding Ferritin Total Bilirubin 0.3 AST 27 ALT 16 Alkaline Phosphatase 81 Troponin I High Sens B-Natriuretic Peptide Total Protein 5.7 L Albumin 3.0 L Vitamin B12 Folate Beta-Hydroxybutyrate TSH Stool Occult Blood Blood Type Antibody Screen Crossmatch 06/06/24 06/06/24 06/06/24 11:30 12:29 15:38 WBC RBC Hgb Hct MCV MCH MCHC RDW Plt Count MPV Immature Gran % (Auto) Neut % (Auto) Lymph % (Auto) [place] % (Auto) Eos % (Auto) Baso % (Auto) Lymph # (Auto) [place] # (Auto) Eos # (Auto) Baso # (Auto) Abs Immat Gran (auto) Absolute Neuts (auto) Absolute Nucleated RBC Nucleated RBC % (auto) PT INR Sodium 126 L Potassium 3.9 Chloride 91 L Carbon Dioxide 29 Anion Gap 10 L BUN 22 H Creatinine 1.31 Estim Creat Clear Calc 28.8 Estimated GFR 39 POC Glucose 132 H 102 Random Glucose 128 H Fasting Glucose Osmolality Calcium 8.5 Iron TIBC % Saturation Unsat Iron Binding Ferritin Total Bilirubin AST ALT Alkaline Phosphatase Troponin I High Sens B-Natriuretic Peptide Total Protein Albumin Vitamin B12 Folate Beta-Hydroxybutyrate TSH Stool Occult Blood Blood Type Antibody Screen Crossmatch 06/06/24 06/06/24 06/06/24 17:22 18:17 20:30 WBC RBC Hgb Hct MCV MCH MCHC RDW Plt Count MPV Immature Gran % (Auto) Neut % (Auto) Lymph % (Auto) [place] % (Auto) Eos % (Auto) Baso % (Auto) Lymph # (Auto) [place] # (Auto) Eos # (Auto) Baso # (Auto) Abs Immat Gran (auto) Absolute Neuts (auto) Absolute Nucleated RBC Nucleated RBC % (auto) PT INR Sodium Potassium Chloride Carbon Dioxide Anion Gap BUN Creatinine Estim Creat Clear Calc Estimated GFR POC Glucose 146 H 246 H Random Glucose Fasting Glucose Osmolality 268 L Calcium Iron TIBC % Saturation Unsat Iron Binding Ferritin Total Bilirubin AST ALT Alkaline Phosphatase Troponin I High Sens B-Natriuretic Peptide Total Protein Albumin Vitamin B12 Folate Beta-Hydroxybutyrate TSH 2.15 Stool Occult Blood Blood Type Antibody Screen Crossmatch 06/07/24 06/07/24 06/07/24 06:14 07:03 11:22 WBC 8.4 RBC 3.68 L Hgb 10.5 L Hct 32.6 L MCV 88.6 MCH 28.5 MCHC 32.2 RDW 14.2 Plt Count 277 MPV 10.6 Immature Gran % (Auto) 0.4 Neut % (Auto) 71.8 Lymph % (Auto) 10.6 L [place] % (Auto) 13.4 H Eos % (Auto) 3.2 Baso % (Auto) 0.6 Lymph # (Auto) 0.9 L [place] # (Auto) 1.1 Eos # (Auto) 0.3 Baso # (Auto) 0.1 Abs Immat Gran (auto) 0.03 Absolute Neuts (auto) 6.0 Absolute Nucleated RBC 0.000 Nucleated RBC % (auto) 0.0 PT INR Sodium 133 L Potassium 3.6 Chloride 95 L Carbon Dioxide 30 H Anion Gap 12 BUN 18 H Creatinine 1.06 Estim Creat Clear Calc 35.7 Estimated GFR 50 POC Glucose 97 114 Random Glucose 86 Fasting Glucose 85 Osmolality Calcium 8.6 Iron TIBC % Saturation Unsat Iron Binding Ferritin Total Bilirubin 0.4 AST 27 ALT 17 Alkaline Phosphatase 90 Troponin I High Sens B-Natriuretic Peptide Total Protein 5.7 L Albumin 3.0 L Vitamin B12 Folate Beta-Hydroxybutyrate TSH Stool Occult Blood Blood Type Antibody Screen Crossmatch Airway Mallampati Class: II TM Dist: >3cm Neck ROM: Poor Denture: Upper and Lower Heart: a fib Lungs: cta, on 3liters o2 Assessment and Plan Assessment Anesthesia Assessment: Anesthesia Plan Discussed Final Anesthetic Review Family History of Problems with Anesthesia: No History of Problems with Anesthesia: No NPO: Yes ASA Class: IV Final Preanesthetic Review: No Changes in Pt Med Stat, Meds/Allgs Chart Reviewed, Consent Obtained/Reviewed, Anes Risks/Benef Reviewed and DNR Form (If Appl.) (limited procedure directed eeversal) Patient Risk: High Procedure Risk: Low Anesthetic Plan Anesthetic Plan: MAC: Disposition: Standard PACU
--- NOTE | 2024-06-07 12:54 | HO.OPN-COLON ---
Colonoscopy Operative Note Operative Note Date of Service: 06/07/24 Narrative: Operative Information Procedure Description: EGD, Colonoscopy Indication: anemia Anesthesia: MAC FLEXIBLE TRANSORAL UPPER GASTROINTESTINAL ENDOSCOPY AND COLONOSCOPY PROCEDURE NOTE UPPER ENDOSCOPY Consent: Indications for the procedure and potential complications of bleeding, perforation, reaction to medications and missed diagnosis were discussed with the patient and informed consent was obtained. Instrument: Olympus GIF H 190 J mid size upper endoscope Monitoring: Vital signs and clinical assessment, continuous EKG monitoring, Pulse oximetry, Carbon Dioxide monitoring and blood pressure monitoring were done throughout the procedure. Procedure: The patient was placed in the left lateral decubitis position and pre-procedure medications were administered and a bite block was placed. The endoscope was inserted into the mouth and advanced under direct vision to the third part of duodenum. A careful inspection was made as the upper endoscope was withdrawn including a retroflexed examination of the proximal stomach; Findings and interventions are described below. Findings: Larynx:normal Esophagus: GE junction at 36 cm, diaphragm hiatus at 40 cm, consistent with hiatal hernia Stomach: Normal mucosa. Grade 2 flap valve on retroflexed examination of the cardia. Duodenum: Mild duodenitis Intervention: none COLONOSCOPY Instrument: Olympus variable stiffness pediatric scope 190L Colonoscopy Monitoring: Vital signs and clinical assessment, continuous EKG monitoring, Pulse oximetry, Carbon Dioxide monitoring and blood pressure monitoring were done throughout the procedure. Colon withdrawal time was 10 minutes. Procedure: The patient was placed in the left lateral decubitis position and pre-procedure medications were administered. After a digital rectal examination of the ano-rectum, the video colonoscope was inserted into the rectum and advanced through the colon to the cecum/TI. The colonoscope was slowly withdrawn in a retrograde panoramic fashion and the colon mucosa was carefully examined including a retroflexed view of the rectum. Findings and interventions are described below. Procedure Difficulty:moderate Findings: Terminal Ileum-normal Cecum:normal Ascending Colon: 10 mm sessile polyp removed with cold snare Transverse Colon -normal Descending Colon:normal Sigmoid Colon: moderate diverticulosis Rectum: Retroflexion with small to medium slightly inflammed internal hemorrhoids, grade I Anorectum - normal Colon preparation: [place] Bowel Preparation Scale Right colon; 2 Transverse colon: 3 Left colon; 3 (0 = Unprepared colon segment with mucosa not seen due to solid stool that cannot be cleared. 1 = Portion of mucosa of the colon segment seen, but other areas of the colon segment not well seen due to staining, residual stool and/or opaque liquid. 2 = Minor amount of residual staining, small fragments of stool and/or opaque liquid, but mucosa of colon segment seen well. 3 = Entire mucosa of colon segment seen well with no residual staining, small fragments of stool or opaque liquid) Impression and Post Procedure Diagnosis: Endoscopy Findings: hiatal hernia duodenitis Colonoscopy Findings: diverticulosis colon polyp internal hemorrhoids Plan: Await Pathology results Repeat Colonoscopy only if clinically indicated High fiber diet leaflet avoid straining at stool, epsom salts and sitz bath, anusol supps or cream no active bleeding source seen, can resume eliquis tomorrow GERD precautions Above findings were reviewed with the patient and relevant handouts were provided if indicated.
--- NOTE | 2024-06-07 14:57 | P.PNIM_ITS ---
Subjective Subjective Date of Service: 06/07/24 Interval History: NPO for colonoscopy, offers no acute complaints, no acute events overnight, denies fever, no chills, no shortness of breath, no hematemesis or melena. Review of Systems All other system reviewed and are negative. Physical Exam 2 Vital Signs: Vital Signs: Last Vital Signs Temp 97 F 06/07/24 13:31 Pulse 65 06/07/24 13:31 Resp 16 06/07/24 13:31 BP 145/45 H 06/07/24 13:31 Pulse Ox 100 06/07/24 13:31 O2 Del Method Nasal Cannula, Si mple Mask 06/07/24 13:31 O2 Flow Rate 3 06/07/24 13:31 Oxygen Flow Rate 4 05/31/24 11:26 BMI result Body Mass Index 21.6 Const: Other: Gen: Awake alert x3, in no acute distress HEENT: moist mucus membranes Neck: supple, no JVD Lungs: diminished, no crackles Heart: Regular Abd: soft, non-tender, non-distended, bowel sounds audible Ext: no edema Skin: warm/well-perfused Neuro: alert and oriented x3, no focal findings Psych: Appropriate affect Objective Data Active Medications Acetaminophen (Acetaminophen 325 Mg Tablet) 650 mg PO Q6H PRN PRN Reason: Pain, Mild (Pain Scale 1-3), fever or headache Albuterol Sulfate (Albuterol Sulfate 90 Mcg 8 Gm Inhaler) 2 puff INHALE Q4H PRN PRN Reason: Wheezing Amiodarone HCl (Amiodarone Hcl 200 Mg Tablet) 200 mg PO DAILY [facility] Last Admin: 06/07/24 09:13 Dose: 200 mg Documented By: IJEOMA Artificial Tears (Artificial Tears 15 Ml Drops) 2 drop EYE-BOTH Q4H PRN PRN Reason: Dry Eyes Last Admin: 06/05/24 09:19 Dose: 2 drop Documented By: ALFREDO Atorvastatin Calcium (Atorvastatin Calcium 40 Mg Tablet) 40 mg PO BEDTIME [facility] Last Admin: 06/06/24 21:09 Dose: 40 mg Documented By: JAROCHO Bisacodyl (Bisacodyl 10 Mg Supp.Rect) 10 mg MS DAILY PRN PRN Reason: Constipation Bumetanide (Bumetanide 1 Mg Tablet) 1 mg PO DAILY [facility]; Protocol Last Admin: 06/07/24 09:13 Dose: 1 mg Documented By: IJEOMA Donepezil HCl (Donepezil Hcl 5 Mg Tablet) 5 mg PO BEDTIME [facility] Last Admin: 06/06/24 21:09 Dose: 5 mg Documented By: JAROCHO Fluticasone/Vilanterol (Fluticasone/Vilanterol 100/25 Blst.W.Dev) 1 puff INHALE RDAILY [facility] Last Admin: 06/07/24 11:06 Dose: Not Given Documented By: ANOOP Non-Admin Reason: Patient Asleep Glucose (Glucose Gel 15 Gm Gel..Gram.) 15 gm PO Q15M PRN; Protocol PRN Reason: per Hypoglycemia Standing Ord. Guaifenesin (Guaifenesin 200 Mg/10 Ml 10 Ml Liquid) 5 ml PO TID [facility] Last Admin: 06/07/24 09:14 Dose: Not Given Documented By: IJEOMA Non-Admin Reason: NPO Hydralazine HCl (Hydralazine Hcl 50 Mg Tablet) 50 mg PO BID [facility]; Protocol Last Admin: 06/07/24 09:14 Dose: 50 mg Documented By: IJEOMA Dextrose (D10) 250 mls @ 750 mls/hr IV Q15M PRN; Protocol PRN Reason: per Hypoglycemia Standing Ord. Insulin Glargine (Insulin Glargine,Hum.Rec.Anlog 100 Unit/Ml 10 Ml Vial) 10 unit SUBCUT BEDTIME [facility] Last Admin: 06/06/24 21:54 Dose: Not Given Documented By: JAROCHO Non-Admin Reason: pt npo after mn not eating very much md notif Insulin Human Lispro (Insulin Lispro 100 Unit/Ml 3 Ml Vial) 0 unit SUBCUT QIDACHS [facility]; Protocol Last Admin: 06/07/24 11:36 Dose: Not Given Documented By: IJEOMA Non-Admin Reason: No Insulin Coverage Isosorbide Dinitrate (Isosorbide Dinitrate 10 Mg Tablet) 10 mg PO BID [facility]; Protocol Last Admin: 06/07/24 09:13 Dose: 10 mg Documented By: IJEOMA Melatonin (Melatonin 3 Mg Tablet) 6 mg PO BEDTIME PRN PRN Reason: Insomnia Metoprolol Succinate (Metoprolol Succinate Er 100 Mg Tab.Er.24h) 100 mg PO DAILY [facility]; Protocol Last Admin: 06/07/24 09:14 Dose: 100 mg Documented By: IJEOMA Naloxone HCl (Naloxone Hcl 0.4 Mg/Ml Vial) 0.04 mg IVPUSH Q5M PRN PRN Reason: Excessive sedation or RR < 8 Pantoprazole Sodium (Pantoprazole Sodium 40 Mg/10 Ml Vial) 40 mg IVPUSH DAILY@0630 [facility] Last Admin: 06/07/24 05:12 Dose: 40 mg Documented By: JAROCHO Polyethylene Glycol (Polyethylene Glycol 3350 17 Gm Powd.Pack) 17 gm PO DAILY PRN PRN Reason: Constipation Prochlorperazine Edisylate (Prochlorperazine Edisylate 10 Mg/2 Ml Vial) 5 mg IVPUSH Q4H PRN PRN Reason: Nausea and Vomiting Last Admin: 06/04/24 21:44 Dose: 5 mg Documented By: MARCOS Comments: pt reports feelin nauseated. Risperidone (Risperidone 0.5 Mg Tablet) 0.5 mg PO BID [facility] Last Admin: 06/07/24 09:13 Dose: 0.5 mg Documented By: IJEOMA Sodium Chloride (0.9 % Sodium Chloride Flush 3 Ml Syringe) [facility] Admin: 06/07/24 09:14 Dose: 3 ml Documented By: IJEOMA Trazodone HCl (Trazodone Hcl 50 Mg Tablet) 50 mg PO BEDTIME PRN PRN Reason: Insomnia Last Admin: 06/03/24 20:46 Dose: 50 mg Documented By: PAYTON Vitamin D (Cholecalciferol (Vitamin D3) 25 Mcg Tablet) 25 mcg PO DAILY [facility] Last Admin: 06/07/24 09:13 Dose: 25 mcg Documented By: IJEOMA Labs 06/07/24 06:14 06/07/24 06:14 Labs: Laboratory Results - last 24 hr 06/06/24 06/06/24 06/06/24 15:38 17:22 18:17 MCV MCH MCHC RDW Plt Count MPV Immature Gran % (Auto) Neut % (Auto) Lymph % (Auto) [place] % (Auto) Eos % (Auto) Baso % (Auto) Lymph # (Auto) [place] # (Auto) Eos # (Auto) Baso # (Auto) Abs Immat Gran (auto) Absolute Neuts (auto) Absolute Nucleated RBC Nucleated RBC % (auto) Anion Gap Estim Creat Clear Calc Estimated GFR POC Glucose 102 146 H Random Glucose Fasting Glucose Osmolality 268 L Calcium Total Bilirubin AST ALT Alkaline Phosphatase Total Protein Albumin TSH 2.15 06/06/24 06/07/24 06/07/24 20:30 06:14 07:03 MCV 88.6 MCH 28.5 MCHC 32.2 RDW 14.2 Plt Count 277 MPV 10.6 Immature Gran % (Auto) 0.4 Neut % (Auto) 71.8 Lymph % (Auto) 10.6 L [place] % (Auto) 13.4 H Eos % (Auto) 3.2 Baso % (Auto) 0.6 Lymph # (Auto) 0.9 L [place] # (Auto) 1.1 Eos # (Auto) 0.3 Baso # (Auto) 0.1 Abs Immat Gran (auto) 0.03 Absolute Neuts (auto) 6.0 Absolute Nucleated RBC 0.000 Nucleated RBC % (auto) 0.0 Anion Gap 12 Estim Creat Clear Calc 35.7 Estimated GFR 50 POC Glucose 246 H 97 Random Glucose 86 Fasting Glucose 85 Osmolality Calcium 8.6 Total Bilirubin 0.4 AST 27 ALT 17 Alkaline Phosphatase 90 Total Protein 5.7 L Albumin 3.0 L TSH 06/07/24 11:22 MCV MCH MCHC RDW Plt Count MPV Immature Gran % (Auto) Neut % (Auto) Lymph % (Auto) [place] % (Auto) Eos % (Auto) Baso % (Auto) Lymph # (Auto) [place] # (Auto) Eos # (Auto) Baso # (Auto) Abs Immat Gran (auto) Absolute Neuts (auto) Absolute Nucleated RBC Nucleated RBC % (auto) Anion Gap Estim Creat Clear Calc Estimated GFR POC Glucose 114 Random Glucose Fasting Glucose Osmolality Calcium Total Bilirubin AST ALT Alkaline Phosphatase Total Protein Albumin TSH Assessment and Plan (1) Hyperglycemia: Status: Acute (2) Anemia: Status: Acute Plan 78 year old female with a history of COPD, HFrEF, paroxysmal atrial fibrillation on Eliquis, CKD, diabetes, coronary artery disease, 2 recent admissions for atrial fibrillation with rapid ventricular response and CHF discharged to rehab on May 28 and sent back to the emergency department today for worsening anemia 1.Symptomatic anemia - no acute GI bleed noted -CT scan abdomen pelvis with oral contrast demonstrates questionable apple-core lesion - Eliquis and aspirin on hold -underwent upper endoscopy/ colonoscopy by Dr. Brady Endoscopy showed hiatal hernia, and mild duodenitis, colonoscopy showed 10 mm sessile polyp ascending colon removed with cold snare, moderate diverticulosis of sigmoid colon and grade 1 internal hemorrhoids GI recommend to follow up pathology report, high-fiber diet, avoid straining it is stool no active bleeding or sores noted, Eliquis can be resumed tomorrow resume diabetic diet 2.LAURO on CKD3 - creatinine normalized resume Bumex 1 mg daily follow BMP 3.Paroxysmal atrial fibrillation -heart rate acceptable on current therapies -continue amiodorone, metoprolol 100 qd -resume Eliquis at a.m. 4.HFrEF -continue hydralaine, isordil and Bumex 1 mg daily no acute CHF exacerbation 5.Diabetes mellitus type 2 with hyperglycemia -acceptable control on Lantus 10 units and insulin sliding scale, off farxiga -adjust as indicated 6.Hypertension -acceptable control on current therapies -adjust as indicated 7. acute hyponatremia low serum osmolality, hypervolemic likely due to heart failure, sodium improved continue Bumex DNR/DNI Pneumatics Requires ongoing hospitalization to complete workup for symptomatic anemia, monitor electrolytes and CBC, Quality Stroke Does the patient have a stroke diagnosis?: No VTE Prior VTE?: No VTE Risk Level:: Medical - moderate - high VTE Device Contraindication: N/A - Device Ordered VTE Drug Contraindication: Treatment Not Indicated
[2024-06-07 16:40] LABS: Glucose, Whole Blood 259 mg/dL (60-115)
[2024-06-07] MEDS: Insulin Lispro 100 UNIT/ML 3 ML VIAL SUBCUT ×2 (16:56→21:00)
[2024-06-07 20:15] LABS: Glucose, Whole Blood 318 mg/dL (60-115)
[2024-06-07] MEDS: Donepezil HCl 5 MG TABLET PO (20:59)
[2024-06-07] MEDS: guaiFENesin 200 MG/10 ML 10 ML LIQUID 5 ML PO (20:59)
[2024-06-07] MEDS: Atorvastatin Calcium 40 MG TABLET PO (20:59)
[2024-06-07] MEDS: Insulin Glargine,Hum.rec.anlog 100 UNIT/ML 10 ML VIAL 10 UNIT SUBCUT (21:00)
[2024-06-08] VITALS: BP 118/56; PULSE 71; RESP 20; TEMP 36.9; O2SAT 98
[2024-06-08 04:00] VITALS: BP 112/53; PULSE 67; RESP 20; TEMP 36.6; O2SAT 99
[2024-06-08] MEDS: Omeprazole 40 MG CAPSULE.DR PO (06:27)
[2024-06-08 06:46] LABS: Hemoglobin 10.5 g/dl (12.0-16.0); Mean Corpuscular HGB Conc 32.8 g/dl (31.0-35.0); Mean Corpuscular Hemoglobin 28.5 pg (27.0-33.0); Mean Platelet Volume 10.9 fL (9.4-12.3); Platelet Count 306 X10*3/uL (160-400); Red Blood Count 3.68 X10*6/uL (4.20-5.50); Red Cell Distribution Width 14.1 % (11.0-16.0)
[2024-06-08 07:06] LABS: Anion Gap 14 (12-20); Blood Urea Nitrogen 26 mg/dL (9-16); Carbon Dioxide 27 mmol/L (22-29); Chloride 92 mmol/L (96-108); Creatinine Clr Calc Pharmacy 22.1; Estimated Glomerular Filt Rate 29; Glucose Random 247 mg/dL (60-115); Potassium 4.2 mmol/L (3.3-5.1); Sodium 129 mmol/L (135-145)
[2024-06-08 07:24] VITALS: BP 147/69; PULSE 75; RESP 17; TEMP 36.2; O2SAT 97
[2024-06-08 07:44] LABS: Glucose, Whole Blood 211 mg/dL (60-115)
--- NOTE | 2024-06-08 07:55 | P.DS_ITS ---
DS: Providers Provider Date of Service: 06/08/24 Date of admission: 05/31/24 15:17 Date of discharge: 06/08/24 Primary care physician: Gene Sanchez MD Consults: 05/31/24 15:17 Consult to Gastroenterology Routine Consulting Provider: Kaylen Brady Reason for consultation: symptomatic anemia on eliquis; heme +stool Has provider been notified: No DS: Diagnosis Discharge Diagnosis (1) Hyperglycemia: Status: Acute (2) Anemia: Status: Acute DS: Summary Hospital Course Hospital Course: Date of Service: 05/31/24 Attending physician on admission: Clem Purvis Chief Complaint: anemia This is a 78-year-old female with 2 recent admissions for CHF exacerbation who was sent to the emergency department from rehab due to low H/H. Patient was discharged to rehab facility on May 28. She has been feeling fatigued and weak. She denies shortness of breath. She had her H/H repeated at the facility and it was noted to be low she was therefore sent to the emergency department for evaluation. H/H 7/21.6, down from 8.1/25.3 on 05/28. Her stool was guiac positive. She has poor vision due to cataracts and has not seen any dark or bloody stools and she states that the people at the facility did not mentioned to her that they noted blood in her stool either. She denies any abdominal pain. She does take blood thinner for atrial fibrillation. 2 units of blood were ordered and transfusion started in the emergency department. She was also noted to be hyperglycemia, she said she has not been given a diabetic diet at rehab and he blood sugar has been high while there. sodium was low at 127 due to hyperglycemia. She will be admitted for further management of symptomatic anemia. 78 year old female with a history of COPD, HFrEF, paroxysmal atrial fibrillation on Eliquis, CKD, diabetes, coronary artery disease, 2 recent admissions for atrial fibrillation with rapid ventricular response and CHF discharged to rehab on May 28 and sent back to the emergency department today for generalized fatigue weakness and noted to have worsening anemia patient denied hematemesis or melena. 1.Symptomatic anemia patient noted to have no acute GI bleed, stool guaiac were positive, CT abdomen and pelvis with oral contrast demonstrates questionable apple-core lesion, Eliquis and aspirin were held, she underwent upper endoscopy/ colonoscopy by Dr. Brady, Endoscopy showed hiatal hernia, and mild duodenitis, colonoscopy showed 10 mm sessile polyp ascending colon removed with cold snare, moderate diverticulosis of sigmoid colon and grade 1 internal hemorrhoids, no cause of acute anemia was found , recommend to follow pathology of colon polyp, recommend to avoid straining, will discontinue aspirin and recommend to continue Eliquis Follow CBC in 1 week. 2.LAURO on CKD3 resolved resume Bumex 1 mg daily 3.Paroxysmal atrial fibrillation acceptable heart rate continue amiodarone, metoprolol and Eliquis 4.HFrEF no acute exacerbation noted,continue hydralaine, isordil and Bumex 1 mg daily . 5.Diabetes mellitus type 2 with hyperglycemia continue Lantus 10 units and farxiga. 6 acute hyponatremia with history of chronic intermittent hyponatremia, low serum osmolality, hypervolemic likely due to heart failure, sodium improved continue Bumex. Time Attestation Discharge Coordination Time (in mins): 40 Quality: Safe Use of Opioids Does Pt have an Active Cancer Diagnosis on the Problem List?: No Quality: Stroke Does the patient have a stroke diagnosis?: No Physical Exam Vital Signs: Vital Signs: Last Vital Signs Temp 97.2 F 06/08/24 07:24 Pulse 75 06/08/24 07:24 Resp 17 06/08/24 07:24 BP 147/69 H 06/08/24 07:24 Pulse Ox 97 06/08/24 07:24 O2 Del Method Nasal Cannula 06/08/24 07:24 O2 Flow Rate 3 06/08/24 07:24 Oxygen Flow Rate 4 05/31/24 11:26 BMI result Body Mass Index 21.6 Const: Other: Gen: Awake alert x3, in no acute distress HEENT: moist mucus membranes Neck: supple, no JVD Lungs: diminished, no crackles Heart: Regular Abd: soft, non-tender, non-distended, bowel sounds audible. Ext: no edema Skin: warm/well-perfused Neuro: alert and oriented x3, no focal findings Psych: Appropriate affect DS: Data Data Completed and Pending Completed studies during hospitalization [Text1]: Procedures Assistance with Respiratory Ventilation, Less than 24 Consecutive Hours, Continuous Positive Airway Pressure (05/19/24) Dilation of Left External Iliac Artery with Intraluminal Device, using Drug- Coated Balloon, Percutaneous Approach (01/13/23) Insertion of Infusion Device into Superior Vena Cava, Percutaneous Approach (01/13/23) Introduction of Vasopressor into Peripheral Vein, Percutaneous Approach (05/19/24) Ultrasonography of Superior Vena Cava, Guidance (01/13/23) Pending studies at discharge: Pending at discharge 06/07/24 12:36 Surgical [PTH] Routine Labs on day of discharge: Laboratory Results - last 24 hr 06/07/24 06/07/24 06/07/24 11:22 16:36 19:57 WBC RBC Hgb Hct MCV MCH MCHC RDW Plt Count MPV Absolute Nucleated RBC Nucleated RBC % (auto) Sodium Potassium Chloride Carbon Dioxide Anion Gap BUN Creatinine Estim Creat Clear Calc Estimated GFR POC Glucose 114 259 H 318 H Random Glucose Calcium 06/08/24 06/08/24 06:12 07:41 WBC 10.0 RBC 3.68 L Hgb 10.5 L Hct 32.0 L MCV 87.0 MCH 28.5 MCHC 32.8 RDW 14.1 Plt Count 306 MPV 10.9 Absolute Nucleated RBC 0.000 Nucleated RBC % (auto) 0.0 Sodium 129 L Potassium 4.2 Chloride 92 L Carbon Dioxide 27 Anion Gap 14 BUN 26 H Creatinine 1.71 H Estim Creat Clear Calc 22.1 Estimated GFR 29 POC Glucose 211 H Random Glucose 247 H Calcium 9.0 Discharge Plan Discharge Anticipated Discharge Date/Time: 06/08/24 11:19 Patient Disposition: Xfer SNF Discharge Diagnosis: Symptomatic anemia Referrals: Cosmo Salgado [Outside] - 1 Week Gene Sanchez MD [Primary Care Provider] - 1 Week Discharge Medications: New metoprolol succinate 100 mg Tablet Extended Release 24 Hr 100 mg PO DAILY Qty: 30 0RF Protocol: Hold for SBP/HR < HOLD for SBP < : 90 HOLD for HR < : 60 Continued bumetanide 1 mg Tablet 1 mg PO DAILY Qty: 90 0RF Protocol: Hold for SBP< HOLD for SBP < : 90 hydralazine 50 mg Tablet 50 mg PO BID Qty: 60 0RF Protocol: Hold for SBP< HOLD for SBP < : 90 acetaminophen 325 mg Tablet 650 mg PO Q6H PRN (Reason: Fever) polyethylene glycol 3350 17 gram Powder In Packet 17 g PO DAILY PRN (Reason: Constipation) Rx Instructions: If patient had no BM in 72 hours magnesium hydroxide [Milk of Magnesia] 400 mg/5 mL Suspension 30 ml PO DAILY PRN (Reason: Constipation) bisacodyl 10 mg Suppository 10 mg OK DAILY PRN (Reason: Constipation) glucagon 1 mg Recon Soln 1 mg SUBCUT Q15M PRN (Reason: BG Less then 70) Rx Instructions: until target blood sugar attained amiodarone 200 mg tablet 200 mg PO DAILY albuterol sulfate 90 mcg/actuation Hfa Aerosol Inhaler 2 puff INHALATION Q4H PRN (Reason: Wheezing) dextrose 40 % Gel 10 g PO Q15M PRN (Reason: BG< 70) Rx Instructions: until symptoms of low blood sugar are controlled Fleet Enema 19-7 gram/118 mL Enema 118 ml OK DAILY PRN (Reason: CONSTIPATION/NO RESULT FROM DULCOLAX) insulin glargine [Lantus U-100 Insulin] 100 unit/mL solution 12 unit subcut BEDTIME fluticasone furoate-vilanterol [Breo Ellipta] 100-25 mcg/dose blister with device 1 ea INHALATION DAILY atorvastatin 40 mg Tablet 40 mg PO BEDTIME Qty: 30 0RF donepezil 5 mg Tablet 5 mg PO BEDTIME Qty: 30 0RF trazodone 50 mg Tablet 50 mg PO BEDTIME PRN (Reason: Insomnia) Qty: 30 0RF omeprazole 40 mg Capsule,Delayed Release(Dr/Ec) 40 mg PO DAILY@0630 Qty: 30 0RF risperidone 0.5 mg Tablet 0.5 mg PO BID Qty: 60 0RF cholecalciferol (vitamin D3) 25 mcg (1,000 unit) capsule 25 mcg PO DAILY Qty: 30 0RF Eliquis 2.5 mg Tablet 2.5 mg PO BID Qty: 60 0RF isosorbide dinitrate 10 mg Tablet 10 mg PO BID Qty: 60 0RF Protocol: Hold for SBP< HOLD for SBP < : 90 Farxiga 5 mg tablet 5 mg PO DAILY Changed guaifenesin 100 mg/5 mL Liquid 100 mg PO TID PRN (Reason: cough) Qty: 473 0RF Discontinued acetaminophen 325 mg Tablet 650 mg PO Q4H PRN (Reason: Pain) aspirin 81 mg Tablet,Delayed Release (Dr/Ec) 81 mg PO DAILY Qty: 30 0RF metoprolol succinate 100 mg Tablet Extended Release 24 Hr 200 mg PO DAILY Qty: 30 0RF Protocol: Hold for SBP/HR < HOLD for SBP < : 90 HOLD for HR < : 60 furosemide [Lasix] 20 mg tablet 20 mg PO DAILY Qty: 30 0RF Discharge Orders: Discharge Order (Routine); Ordered 06/08/24 Ordered By: Maurice Bradley Diet: Low salt diet Activity on Discharge: As tolerated Stand Alone Forms: Patient Portal Discharge page Print Language: [place]alander Care Plan Goals: Symptomatic anemia, no cause of GI bleed noted Continue Eliquis follow CBC in 1 week, monitor for hematemesis/melena Continue 2 L of oxygen keep finger oximetry greater than 90 Health Concerns: Diabetes mellitus continue home medications Plan of Treatment: Outpatient follow-up with primary care physician and Cardiology as previously planned Assessment: As above
[2024-06-08] MEDS: Insulin Lispro 100 UNIT/ML 3 ML VIAL SUBCUT ×3 (08:21→16:28)
[2024-06-08] MEDS: Bumetanide 1 MG TABLET PO (08:22)
[2024-06-08] MEDS: Apixaban 2.5 MG TABLET PO (08:22)
[2024-06-08] MEDS: Amiodarone HCL 200 MG TABLET PO (08:22)
[2024-06-08] MEDS: risperiDONE 0.5 MG TABLET PO (08:22)
[2024-06-08] MEDS: Metoprolol Succinate ER 100 MG TAB.ER.24H PO (08:22)
[2024-06-08] MEDS: Cholecalciferol (Vitamin D3) 25 MCG TABLET PO (08:22)
[2024-06-08] MEDS: Isosorbide Dinitrate 10 MG TABLET PO (08:22)
[2024-06-08] MEDS: hydrALAZINE HCl 50 MG TABLET PO (08:22)
[2024-06-08] MEDS: 0.9 % Sodium Chloride Flush 3 ML SYRINGE IVFLUSH (08:23)
--- NOTE | 2024-06-08 09:45 | HO.POSTANES ---
Post Anesthesia Evaluation Post Anesthesia Evaluation Date of Service: 06/08/24 Vital Signs: Vital Signs Temp Pulse Resp BP Pulse Ox O2 Del Method O2 Flow Rate 06/08/24 07:24 97.2 F 75 17 147/69 H 97 Nasal Cannula 3 06/08/24 04:00 97.8 F 67 20 112/53 L 99 Nasal Cannula 2 06/08/24 00:00 98.4 F 71 20 118/56 L 98 Nasal Cannula 2 Anesthesia: Monitored Mental Status: Awake Pain Control: Satisfactory Nausea/Vomiting: None Hydration: Adequate Anesthesia-Related Issues: No Anes. Related Issues
[2024-06-08 11:18] VITALS: BP 137/65; PULSE 59; RESP 18; TEMP 36.1; O2SAT 99
[2024-06-08 11:42] LABS: Glucose, Whole Blood 328 mg/dL (60-115)
[2024-06-08 12:04] VITALS: O2SAT 99
--- NOTE | 2024-06-08 12:11 | MHC.CM.PN ---
Patient has been medically cleared for dc to SNF/STR today. Patient will dc to [facility] today at 4PM, via [facility].CM met with Patient at bedside and addressed IMM with her, providing Patient with the original and a copy has been placed on the chart. CROW spoke with Daughter/HCP/Marian @ [phone], and informed her of the dc plan.
[2024-06-08 16:00] VITALS: BP 132/76; PULSE 65; RESP 17; TEMP 36.3; O2SAT 98
[2024-06-08 16:29] LABS: Glucose, Whole Blood 271 mg/dL (60-115)
== END 2024-06-08 18:04 | disposition skilled nursing facility (03) | DRG 394 ==
LOC: HO.ED 14:36 → HO.EDOVER 15:47 → HO.IMC 19:06
PROVIDERS: Hospitalist; Internal Medicine Gastroenterology; Physician Assistant; Admitting Provider Physician Assistant Medical; Emergency Provider Emergency Medicine; PCP Internal Medicine; Visit Provider Hospitalist
PROC: 0DJD8ZZ Inspection of Lower Intestinal Tract, Via Natural or Artificial Opening Endoscopic (ICD-10-PCS; CPT 45378; principal; 2024-06-07 13:20)
DX: K63.5 Polyp of colon (principal); E87.1 Hypo-osmolality and hyponatremia; I13.0 Hypertensive heart and chronic kidney disease with heart failure and stage 1 through stage 4 chronic kidney disease, or unspecified chronic kidney disease; I50.22 Chronic systolic (congestive) heart failure; N17.9 Acute kidney failure, unspecified; K29.80 Duodenitis without bleeding; N18.30 Chronic kidney disease, stage 3 unspecified; E11.22 Type 2 diabetes mellitus with diabetic chronic kidney disease; I48.0 Paroxysmal atrial fibrillation; J44.9 Chronic obstructive pulmonary disease, unspecified; E11.51 Type 2 diabetes mellitus with diabetic peripheral angiopathy without gangrene; Z66 Do not resuscitate; H26.9 Unspecified cataract; K44.9 Diaphragmatic hernia without obstruction or gangrene; D63.1 Anemia in chronic kidney disease; K64.0 First degree hemorrhoids; K57.30 Diverticulosis of large intestine without perforation or abscess without bleeding; E11.65 Type 2 diabetes mellitus with hyperglycemia; I25.10 Atherosclerotic heart disease of native coronary artery without angina pectoris; Z87.891 Personal history of nicotine dependence; Z79.899 Other long term (current) drug therapy
CPT/HCPCS: 36415; 74176; 80048; 80053; 82010; 82272; 82607; 82728; 82746; 82947; 83540; 83880; 83930; 84443; 84484; 85025; 85027; 85610; 86850; 86900; 86901; 86923; 88305; 94640; 97162; 99285; J0737; J1940; J2250; J2470; J2704; P9016

== ENCOUNTER → 2024-05-31 15:17 | Outpatient (BNV) | payer MEDICARE, MEDICAID, SELFPAY | PROVIDERS: Admitting Provider Physician Assistant Medical; Emergency Provider Emergency Medicine; PCP Internal Medicine; Visit Provider Internal Medicine Gastroenterology | DX: K92.2 Gastrointestinal hemorrhage, unspecified (principal); D64.9 Anemia, unspecified; K29.80 Duodenitis without bleeding; D12.2 Benign neoplasm of ascending colon; K57.30 Diverticulosis of large intestine without perforation or abscess without bleeding; K64.0 First degree hemorrhoids | CPT/HCPCS: 43235; 45385; 99223; 99232 ==

== ENCOUNTER → 2024-05-31 15:17 | Outpatient (BNV) | payer MEDICARE, MEDICAID, SELFPAY | PROVIDERS: Admitting Provider Physician Assistant Medical; Emergency Provider Emergency Medicine; PCP Internal Medicine; Visit Provider Hospitalist | DX: K63.89 Other specified diseases of intestine (principal); D64.9 Anemia, unspecified; N17.9 Acute kidney failure, unspecified | CPT/HCPCS: 99223; 99232; 99239 ==

== ENCOUNTER 2024-06-09 06:28 | Inpatient (IN) | payer MEDICARE, MEDICAID, SELFPAY ==
[2024-06-09] VITALS (10 sets, daily range): BP systolic 145–191; BP diastolic 57–90; PULSE 62–82; RESP 6–28; TEMP 36.6–36.9; O2SAT 93–98; BMI 22.6
--- NOTE | 2024-06-09 | ECG_ITS ---
Test Reason : bradycardia Blood Pressure : / mmHG Vent. Rate : 051 BPM Atrial Rate : 051 BPM P-R Int : 000 ms QRS Dur : 154 ms QT Int : 518 ms P-R-T Axes : 000 -43 143 degrees QTc Int : 477 ms Complete heart block Left axis deviation Left ventricular hypertrophy with QRS widening ( R in aVL , Howell product ) Inferior infarct (cited on or before 09-JUN-2024) Marked T wave abnormality, consider anterolateral ischemia Abnormal ECG When compared with ECG of 09-JUN-2024 13:46, Current undetermined rhythm precludes rhythm comparison, needs review Referred By: Maurice Bradley Electronically Signed By:Jose Bauman
--- NOTE | 2024-06-09 | ECG_ITS ---
Test Reason : linda Blood Pressure : / mmHG Vent. Rate : 043 BPM Atrial Rate : 043 BPM P-R Int : 400 ms QRS Dur : 158 ms QT Int : 532 ms P-R-T Axes : 054 -46 114 degrees QTc Int : 449 ms Normal sinus rhythm with complete heart block Left axis deviation Wide complex ventricular escape rhythm. Abnormal ECG When compared with ECG of 09-JUN-2024 06:37, Complete heart block present Referred By: Maurice Bradley Electronically Signed By:Jose Bauman
--- NOTE | ~2024-06-09 | XR_ITS ---
EXAMINATION: XR CHEST CLINICAL INFORMATION: sob COMPARISON: X-ray dated May 21, 2024. TECHNIQUE: Frontal view of the chest was obtained. FINDINGS: Meniscal shaped opacity right lower hemithorax. Prominence of the interstitial markings. Patchy opacities both lungs. Pulmonary reticular pattern. No pneumothorax. Cardiomediastinal silhouette appears prominent on the right atrium region. Calcified plaque thoracic aorta. Multilevel thoracic stenosis. Osteopenia versus osteoporosis. XR/XR chest 1V IMPRESSION: Consider worsening of pulmonary edema and increased right-sided pleural effusion. Decreased left-sided pleural effusion. Probable chronic interstitial lung disease. Superimposed acute inflammatory versus infectious process cannot be excluded. Underlying neoplasm cannot be excluded either. Electronically signed by: Hemanth Hughes MD 06/09/2024 10:15 AM [facility]
--- NOTE | 2024-06-09 06:31 | ECG_ITS ---
Test Reason : SOB Blood Pressure : / mmHG Vent. Rate : 076 BPM Atrial Rate : 076 BPM P-R Int : 170 ms QRS Dur : 166 ms QT Int : 456 ms P-R-T Axes : 053 -29 093 degrees QTc Int : 513 ms Sinus rhythm with Premature supraventricular complexes Left bundle branch block Abnormal ECG When compared with ECG of 23-MAY-2024 18:16, Sinus rhythm has replaced Atrial fibrillation Vent. rate has decreased BY 54 BPM Referred By: Generic ED Physician Electronically Signed By:Jose Bauman
[2024-06-09] MEDS: methylPREDNISolone Sod Succ 125 MG/2 ML VIAL IVPUSH (06:43)
[2024-06-09] MEDS: Magnesium Sulfate/H2O 2 GM/50 ML PIGGYBACK IV (06:43)
[2024-06-09] MEDS: Albuterol Sulfate (0.083%) 2.5 MG/3 ML VIAL.NEB 7.5 MG INHALE (06:51)
[2024-06-09 07:01] LABS: MANUAL DIFF FLAG NO
[2024-06-09 07:04] LABS: Basophils Percent Auto 0.2 % (0-2); Eosinophils Absolute Auto 0.1 X10*3/uL (0.0-0.4); Eosinophils Percent Auto 0.6 % (0-4); Hematocrit 30.7 % (37.0-47.0); Hemoglobin 10.2 g/dl (12.0-16.0); Imm Gran Abs Auto 0.08 X10*3/uL (0.00-0.03); Imm Gran Pct Auto 0.6 % (0.0-0.4); Lymphocytes Absolute Auto 1.5 X10*3/uL (1.2-4.9); Lymphocytes Percent Auto 12.4 % (20-40); Mean Corpuscular HGB Conc 33.2 g/dl (31.0-35.0); Mean Corpuscular Hemoglobin 29.1 pg (27.0-33.0); Mean Corpuscular Volume 87.5 fL (80.0-98.0); Mean Platelet Volume 10.6 fL (9.4-12.3); Monocytes Absolute Auto 1.2 X10*3/uL (0.1-1.2); Monocytes Percent Auto 9.5 % (2-11); Neutrophils Absolute Auto 9.5 x10*3/uL (2.0-8.3); Neutrophils Percent Auto 76.7 % (45-73); Platelet Count 305 X10*3/uL (160-400); Red Blood Count 3.51 X10*6/uL (4.20-5.50); Red Cell Distribution Width 14.3 % (11.0-16.0); White Blood Count 12.4 X10*3/uL (4.8-10.8)
--- NOTE | 2024-06-09 07:08 | ED_ITS ---
HPI - General Adult General Chief complaint: Dyspnea Stated complaint: SOB wheezy on duo neb cPap, rr20, low90 Time Seen by Provider: 06/09/24 07:07 Source: patient and EMS Mode of arrival: EMS Limitations: no limitations History of Present Illness ED Provider: Rosemarie Burger PA-C HPI narrative: Patient is a 78 year old assigned female at with a history of heart failure, COPD, DM, atrial fib, CAD, HTN, CKD, PVD, GERD, and MDD presenting to the emergency department today with hypoxia and difficulty breathing. Patient states that she was recently admitted here and discharged to a facility but she has been having trouble breathing. Patient denies any dizziness, lightheadedness, abdominal pain, nausea, vomiting, fever, chills, blurry vision, double vision, loss of vision, chest pain, back pain, night sweats, pain with urination, increased urinary frequency, increased urinary urgency, blood in her urine or stool, syncope or a near syncopal episode, recent trauma or falls, bowel incontinence, bladder incontinence, or any other complaints at this time. Relieving factors: none Exacerbating factors: none Associated symptoms: shortness of breath Related Data Home Medications ?Medication ?Instructions ?Recorded ?Confirmed dapagliflozin propanediol 5 mg 5 mg PO DAILY 07/31/23 05/31/24 tablet (Farxiga) fluticasone furoate 100 1 ea inhalation DAILY 04/16/24 05/31/24 mcg-vilanterol 25 mcg/dose inhalation powder (Breo Ellipta) insulin glargine 100 unit/mL 12 unit subcut BEDTIME 04/16/24 05/31/24 subcutaneous solution (Lantus U-100 Insulin) acetaminophen 325 mg tablet 650 mg PO Q6H PRN Fever 05/31/24 05/31/24 albuterol sulfate 90 mcg/actuation 2 puff inhalation Q4H PRN Wheezing 05/31/24 05/31/24 aerosol inhaler amiodarone 200 mg tablet 200 mg PO DAILY 05/31/24 05/31/24 bisacodyl 10 mg rectal suppository 10 mg MS DAILY PRN Constipation 05/31/24 05/31/24 dextrose 40 % oral gel 10 g PO Q15M PRN BG< 70 05/31/24 05/31/24 glucagon 1 mg solution for 1 mg subcut Q15M PRN BG Less then 05/31/24 05/31/24 injection 70 magnesium hydroxide 400 mg/5 mL 30 ml PO DAILY PRN Constipation 05/31/24 05/31/24 oral suspension (Milk of Magnesia) polyethylene glycol 3350 17 gram 17 g PO DAILY PRN Constipation 05/31/24 05/31/24 oral powder packet sodium phosphates 19 gram-7 118 ml MS DAILY PRN 05/31/24 05/31/24 gram/118 mL enema (Fleet Enema) CONSTIPATION/NO RESULT FROM DULCOLAX Previous Rx's ?Medication ?Instructions ?Recorded atorvastatin 40 mg tablet 40 mg PO BEDTIME #30 tabs 04/22/24 cholecalciferol (vitamin D3) 25 25 mcg PO DAILY #30 caps 04/22/24 mcg (1,000 unit) capsule donepezil 5 mg tablet 5 mg PO BEDTIME #30 tabs 04/22/24 omeprazole 40 mg capsule,delayed 40 mg PO DAILY@0630 #30 caps 04/22/24 release risperidone 0.5 mg tablet 0.5 mg PO BID #60 tabs 04/22/24 trazodone 50 mg tablet 50 mg PO BEDTIME PRN Insomnia #30 04/22/24 tabs apixaban 2.5 mg tablet (Eliquis) 2.5 mg PO BID #60 tabs 05/17/24 isosorbide dinitrate 10 mg tablet 10 mg PO BID #60 tabs 05/17/24 bumetanide 1 mg tablet 1 mg PO DAILY #90 tabs 05/28/24 hydralazine 50 mg tablet 50 mg PO BID #60 tabs 05/28/24 guaifenesin 100 mg/5 mL oral liquid 100 mg (5 mL) PO TID PRN cough 06/08/24 #473 mL metoprolol succinate 100 mg 100 mg PO DAILY #30 tabs 06/08/24 tablet,extended release 24 hr Allergies Allergy/AdvReac Type Severity Reaction Status Date / Time silver Allergy Unknown SKIN TEARS Verified 06/09/24 07:03 [From TEGADERM AG MESH] TAPE,PAPER Allergy Mild Itching Uncoded 05/31/24 11:28 Review of Systems 2 Constitutional: Constitutional: Reports no additional constitutional complaints, Denies chills, Denies fever(s) and Denies night sweats Eyes: Eyes: Reports no additional eye complaints, Denies blurry vision, Denies change in vision, Denies diplopia, Denies eye discharge, Denies loss of vision and Denies eye pain ENT: Denies dizziness Cardiovascular: Cardiovascular: Reports no additional cardiovascular complaints, Denies chest pain, Denies lightheadedness, Denies Loss of Consciousness and Reports dyspnea Respiratory: Respiratory: Reports dyspnea Gastrointestinal: Gastrointestinal: Reports no additional gastrointestinal complaints, Denies abdominal pain, Denies melena, Denies hematochezia, Denies change in bowel habits and Denies change in stool character Genitourinary: Genitourinary: Denies hematuria, Denies urinary frequency, Denies dysuria, Denies urinary incontinence, Denies urinary hesitancy and Denies urinary urgency Musculoskeletal: Musculoskeletal: Reports no additional musculoskeletal complaints, Denies numbness and Denies tingling Neurologic: Denies dizziness, Denies loss of vision, Denies numbness and Denies tingling Psychiatric: Psychiatric: Reports no additional psychiatric complaints Endocrine: Endocrine: Reports no additional endocrine complaints Hematologic/Lymphatic: Hematologic/Lymphatic: Reports no additional hematologic/lymphatic complaints Allergic/Immunologic: Allergic/Immunologic: Reports no additional allergic/immunologic complaints [facility] Past Medical History Attestation statement: The following information was validated with the patient. Source: old records reviewed and nursing notes reviewed Medical History (Updated 06/09/24 @ 12:36 by KARI Arellano) Congestive heart failure PAF (paroxysmal atrial fibrillation) CKD (chronic kidney disease) stage 3, GFR 30-59 ml/min PAD (peripheral artery disease) Diabetic ketoacidosis Major depressive disorder, recurrent, moderate Adjustment disorder CAD (coronary artery disease) GERD (gastroesophageal reflux disease) HTN (hypertension) Carotid artery occlusion Diabetes Hiatal hernia GERD (gastroesophageal reflux disease) Surgical History History of esophagogastroduodenoscopy (EGD) Family History Family History Father No problems noted. Mother No problems noted. Social History Social History Household Members: None Housing: Apartment Are you a primary director of home care hospice to a significant other at home: No Do you presently have visiting nurse or other home services: No Alcohol intake: never Comment: patient refuses to have person standby when using bathroom Patient Tobacco Use Status: Former Tobacco user Tobacco use type: Cigarette Cigarette Packs Per Day: 1.5 Cigarettes Per Day: 30.0 Years Smoked: 40 Second Hand Smoke Exposure: No Substance Use Type: Marijuana Advance Directives: Yes Advance Directives on File: Yes Advance Directives Date on File: 01/14/23 Do you have a plan to hurt others: No Plan service: No Current occupational status: retired Sexual orientation: Straight/Heterosexual Physical Exam ED Vital Signs: Vital Signs - 24 hr 06/09/24 06:46 06/09/24 06:48 06/09/24 06:56 Temperature 98.5 F Pulse Rate 82 70 Respiratory Rate 28 H 28 H 20 Blood Pressure 157/58 H Pulse Oximetry 95 Oxygen Delivery Method CPAP Oxygen Flow Rate 06/09/24 08:34 06/09/24 10:54 Temperature 97.8 F Pulse Rate 80 Respiratory Rate 16 12 Blood Pressure 164/57 H Pulse Oximetry 95 Oxygen Delivery Method Nasal Cannula Oxygen Flow Rate 2 BMI result Body Mass Index 22.6 Const General: cooperative, no acute distress, alert and awake Nutritional Appearance: well nourished Orientation/consciousness: patient oriented x3 Limitations: no limitations HENMT Head: Yes normal to inspection and Yes atraumatic Ears: hearing grossly normal bilaterally and external ears normal General nose exam: Normal external nose present, no nasal discharge noted and no epistaxis Face and sinus: Yes normal facial exam, No abrasion and No laceration Mouth: Normal oral and palatal mucosa present, no drooling and no muffled voice Eyes General: appearance normal, both eyes and all related structures Periorbital: periorbital findings normal Eyelids: Yes eyelids normal Conjunctivae: conjunctivae normal Pupils: Equal, round and reactive pupils present EOM: EOMs intact bilaterally Neck Neck: Yes normal visual inspection, Yes full ROM and Yes no lymphadenopathy Chest Chest palpation & inspection: normal inspection of the chest Resp Effort & Inspection: able to speak in complete sentences and labored Auscultation: rhonchi throughout GI Inspection: Yes normal to inspection Neuro General: patient oriented x3 and moves all extremities Cranial nerves: Yes Equal, round and reactive pupils present Cognition (Neuro): normal cognition Extrem General: Yes normal to inspection, Yes full ROM and Yes capillary refill normal Psych Appearance: grossly normal Mental Status: mental status grossly normal Affect: normal affect Attitude: cooperative Thought process: Normal thought process present Thought content: Normal thought content present Insight: Good insight present (Psych) Medications Administered Discontinued Medications Generic Name Dose Route Start Last Admin Trade Name Kar PRN Reason Stop Dose Admin Albuterol Sulfate 7.5 mg 06/09/24 06:31 06/09/24 06:51 Albuterol Sulfate (0.083%) 2.5 Mg/3 Ml Vial.Neb INHALE 06/09/24 06:32 7.5 mg ONCE ONE Administration Ceftriaxone Sodium 1 gm 06/09/24 07:48 06/09/24 08:43 Ceftriaxone Sodium 1 Gm Vial IVPUSH 06/09/24 07:49 1 gm ONCE ONE Administration Magnesium Sulfate 2 gm in 50 mls @ 150 mls/hr 06/09/24 06:31 06/09/24 08:52 Magnesium Sulfate/H2o IV 06/09/24 06:50 Infused ONCE ONE Infusion Methylprednisolone Sodium Succinate 125 mg 06/09/24 06:31 06/09/24 06:43 Methylprednisolone Sod Succ 125 Mg/2 Ml Vial IVPUSH 06/09/24 06:32 125 mg ONCE ONE Administration Medical Decision Making Medical Decision Making MDM Narrative: Patient is a 78 year old assigned female at with a history of heart failure, COPD, DM, atrial fib, CAD, HTN, CKD, PVD, GERD, and MDD presenting to the emergency department today with hypoxia and difficulty breathing. Patient's physical exam was as noted in the physical exam portion of this note. Patient's blood work showed a WBC count of 12.4. CR of 1.94, and BUN 31. Patient's EKG was unremarkable. Patient's chest x-ray showed evidence of pulmonary edema as well as possible infiltrate. Patient was initially placed on Bipap due to her work of breathing and examination. Patient was able to be weened down to high flow oxygen and was satting well with less work of breathing. Patient was given IV ceftriaxone to cover for possible PNA. Patient's clinical presentation is not consistent with sepis @0900. I spoke to the hospitalist team who agreed to admission. I explained my physical exam findings as well as all test results to the patient. I answered all questions asked by the patient. Patient verbalized agreement and understanding with this treatment plan and admission. Differential Diagnosis Differential Diagnoses: The differential diagnosis associated with the presentation includes Pneumonia Hypoxia Admission/Observation Consideration of admission/observation: Escalation of care including admission/observation considered Patient admitted. Consult Healthcare Provider Management of the patient was discussed with: Hospitalist (agreed to admission as noted in the MDM Rationale portion of this note. ) Lab Data [facility] [place] Lab Attestation statement: I reviewed the patient's lab results. My interpretation of these results are in the MDM Rationale portion of this note. 06/09/24 06:56 06/09/24 06:55 Labs: Lab Results 06/09/24 06/09/24 06/09/24 Range/Units 06:55 06:56 08:12 WBC 12.4 H (4.8-10.8) X10*3/uL RBC 3.51 L (4.20-5.50) X10*6/uL Hgb 10.2 L (12.0-16.0) g/dl Hct 30.7 L (37.0-47.0) % MCV 87.5 (80.0-98.0) fL MCH 29.1 (27.0-33.0) pg MCHC 33.2 (31.0-35.0) g/dl RDW 14.3 (11.0-16.0) % Plt Count 305 (160-400) X10*3/uL MPV 10.6 (9.4-12.3) fL Immature Gran % (Auto) 0.6 H (0.0-0.4) % Neut % (Auto) 76.7 H (45-73) % Lymph % (Auto) 12.4 L (20-40) % [place] % (Auto) 9.5 (2-11) % Eos % (Auto) 0.6 (0-4) % Baso % (Auto) 0.2 (0-2) % Lymph # (Auto) 1.5 (1.2-4.9) X10*3/uL [place] # (Auto) 1.2 (0.1-1.2) X10*3/uL Eos # (Auto) 0.1 (0.0-0.4) X10*3/uL Baso # (Auto) 0.0 (0.0-0.2) X10*3/uL Abs Immat Gran (auto) 0.08 H (0.00-0.03) X10*3/uL Absolute Neuts (auto) 9.5 H (2.0-8.3) x10*3/uL Absolute Nucleated RBC 0.000 (0.0-0.012) X10*3/uL Nucleated RBC % (auto) 0.0 (0.0-0.2) /100WBC VBG pH 7.50 H (7.32-7.43) VBG pCO2 33 mmHg VBG pO2 128 mmHg VBG HCO3 26 (22-26) mmol/L VBG O2 Saturation 99.0 % VBG Base Excess 3.6 mmol/L Sodium 129 L (135-145) mmol/L Potassium 3.9 (3.3-5.1) mmol/L Chloride 91 L (96-108) mmol/L Carbon Dioxide 29 (22-29) mmol/L Anion Gap 13 (12-20) BUN 31 H (9-16) mg/dL Creatinine 1.94 H (0.5-1.4) mg/dL Estim Creat Clear Calc 19.5 Estimated GFR 25 Random Glucose 241 H (60-115) mg/dL Lactic Acid 0.8 (0.5-2.0) mmol/L Calcium 9.3 (8.4-10.2) mg/dL Troponin I High Sens 47.6 H (<3.5-17.0) ng/L B-Natriuretic Peptide 488 H (<100) pg/mL Influenza Type A (PCR) NEGATIVE (Negative) Influenza Type B (PCR) NEGATIVE (Negative) RSV RNA Qual (PCR) NEGATIVE (Negative) SARS-CoV-2 RNA (RT-PCR) NEGATIVE (Negative) 06/09/24 Range/Units 08:15 WBC (4.8-10.8) X10*3/uL RBC (4.20-5.50) X10*6/uL Hgb (12.0-16.0) g/dl Hct (37.0-47.0) % MCV (80.0-98.0) fL MCH (27.0-33.0) pg MCHC (31.0-35.0) g/dl RDW (11.0-16.0) % Plt Count (160-400) X10*3/uL MPV (9.4-12.3) fL Immature Gran % (Auto) (0.0-0.4) % Neut % (Auto) (45-73) % Lymph % (Auto) (20-40) % [place] % (Auto) (2-11) % Eos % (Auto) (0-4) % Baso % (Auto) (0-2) % Lymph # (Auto) (1.2-4.9) X10*3/uL [place] # (Auto) (0.1-1.2) X10*3/uL Eos # (Auto) (0.0-0.4) X10*3/uL Baso # (Auto) (0.0-0.2) X10*3/uL Abs Immat Gran (auto) (0.00-0.03) X10*3/uL Absolute Neuts (auto) (2.0-8.3) x10*3/uL Absolute Nucleated RBC (0.0-0.012) X10*3/uL Nucleated RBC % (auto) (0.0-0.2) /100WBC VBG pH (7.32-7.43) VBG pCO2 mmHg VBG pO2 mmHg VBG HCO3 (22-26) mmol/L VBG O2 Saturation % VBG Base Excess mmol/L Sodium (135-145) mmol/L Potassium (3.3-5.1) mmol/L Chloride (96-108) mmol/L Carbon Dioxide (22-29) mmol/L Anion Gap (12-20) BUN (9-16) mg/dL Creatinine (0.5-1.4) mg/dL Estim Creat Clear Calc Estimated GFR Random Glucose (60-115) mg/dL Lactic Acid 1.2 (0.5-2.0) mmol/L Calcium (8.4-10.2) mg/dL Troponin I High Sens (<3.5-17.0) ng/L B-Natriuretic Peptide (<100) pg/mL Influenza Type A (PCR) (Negative) Influenza Type B (PCR) (Negative) RSV RNA Qual (PCR) (Negative) SARS-CoV-2 RNA (RT-PCR) (Negative) Independent Interpretation I performed an independent interpretation of an: EKG and Plain X-Ray Interpretation: My interpretation is in agreement with the radiologist's impression of this imaging study. L EXAMINATION: XR CHEST CLINICAL INFORMATION: sob COMPARISON: X-ray dated May 21, 2024. TECHNIQUE: Frontal view of the chest was obtained. FINDINGS: Meniscal shaped opacity right lower hemithorax. Prominence of the interstitial markings. Patchy opacities both lungs. Pulmonary reticular pattern. No pneumothorax. Cardiomediastinal silhouette appears prominent on the right atrium region. Calcified plaque thoracic aorta. Multilevel thoracic stenosis. Osteopenia versus osteoporosis. XR/XR chest 1V IMPRESSION: Consider worsening of pulmonary edema and increased right-sided pleural effusion. Decreased left-sided pleural effusion. Probable chronic interstitial lung disease. Superimposed acute inflammatory versus infectious process cannot be excluded. Underlying neoplasm cannot be excluded either. Electronically signed by: Hemanth Hughes MD 06/09/2024 10:15 AM EST Dictated By: Hemanth Baltazar MD Signed By: Electronically signed by Hemanth Bolton MD 06/09/24 1015 Vent. Rate: 076 BPM Atrial Rate: 076 BPM P-R Int: 170 ms QRS Dur: 166 ms QT Int: 456 ms P-R-T Axes: 053 -29 093 degrees QTc Int: 513 ms Sinus rhythm with Premature supraventricular complexes Left bundle branch block Abnormal ECG When compared with ECG of 23-MAY-2024 18:16, Sinus rhythm has replaced Atrial fibrillation Vent. rate has decreased BY 54 BPM DD/ 0637 Radiology Impression Discussion of test interpretation with radiology: I have reviewed the radiologist's reading. Independent Historian Clinical information obtained from an independent historian. History obtained from or confirmed by: EMS (EMS provided additional history and confirmed the history provided by the patient.) Critical Care Time Critical Care Time Critical Care Time: Yes Total Critical Care Time: 51 Attestation: I spent 51 minutes of Critical Care Time with this patient. This does not include time spent on separately reported billable procedures. Discharge Plan Discharge Clinical Impression: Hypoxia, CHF (congestive heart failure), Fluid overload Patient Disposition: Admitted As Inpatient
[2024-06-09 07:24] LABS: Lactic Acid 0.8 mmol/L (0.5-2.0)
[2024-06-09 07:26] LABS: Anion Gap 13 (12-20); Blood Urea Nitrogen 31 mg/dL (9-16); Calcium 9.3 mg/dL (8.4-10.2); Carbon Dioxide 29 mmol/L (22-29); Chloride 91 mmol/L (96-108); Creatinine Clr Calc Pharmacy 19.5; Estimated Glomerular Filt Rate 25; Glucose Random 241 mg/dL (60-115); Potassium 3.9 mmol/L (3.3-5.1); Sodium 129 mmol/L (135-145)
[2024-06-09 07:28] LABS: B Type Natriuretic Peptide 488 pg/mL (<100)
[2024-06-09 07:34] LABS: Troponin-I High Sensitivity 47.6 ng/L (<3.5-17.0)
[2024-06-09 07:40] LABS: Influenza A PCR NEGATIVE (Negative); Influenza B PCR NEGATIVE (Negative); Resp Syncy Virus RNA Qual PCR NEGATIVE (Negative); SARS COV2 PCR INHOUSE NEGATIVE (Negative)
[2024-06-09 08:16] LABS: Venous Blood Gas Refer to POC result
[2024-06-09 08:16] LABS: VBG Base Excess 3.6 mmol/L; VBG HCO3 26 mmol/L (22-26); VBG pCO2 33 mmHg; VBG pO2 128 mmHg
[2024-06-09 08:37] LABS: Lactic Acid 1.2 mmol/L (0.5-2.0)
[2024-06-09] MEDS: cefTRIAXone sodium 1 GM VIAL IVPUSH (08:43)
--- NOTE | 2024-06-09 12:20 | P.CONCA_ITS ---
History of Present Illness History of Present Illness Date of Service: 06/09/24 Requesting physician: Maurice Bradley Chief complaint: Hypoxia Narrative: [age] year female who has been in and out of hospital over the last few weeks with congestive heart failure and new diagnosis of cardiomyopathy. She also has paroxysmal atrial fibrillation. She was discharged and apparently overnight was feeling anxious and restless. Then she started having shortness of breath. She has been in and out of atrial fibrillation and apparently does not tolerate atrial fibrillation. It is possible that she had atrial fibrillation overnight but currently is in sinus rhythm but telemetry. She said her breathing just got worse and she came back. She was noticed to have hypoxia and chest x-ray was concerning for congestive heart failure. She was on BiPAP and is feeling better at this stage. Denying any aspiration or choking with food. She said she did not vomit before she had shortness of breath. [facility] Past Medical History Medical History (Updated 06/09/24 @ 12:36 by KARI Arellano) Congestive heart failure PAF (paroxysmal atrial fibrillation) CKD (chronic kidney disease) stage 3, GFR 30-59 ml/min PAD (peripheral artery disease) Diabetic ketoacidosis Major depressive disorder, recurrent, moderate Adjustment disorder CAD (coronary artery disease) GERD (gastroesophageal reflux disease) HTN (hypertension) Carotid artery occlusion Diabetes Hiatal hernia GERD (gastroesophageal reflux disease) Family History Family History Father No problems noted. Mother No problems noted. Surgical History Surgical History History of esophagogastroduodenoscopy (EGD) Social History Social History Household Members: None Housing: Apartment Are you a primary respiratory care instructor to a significant other at home: No Do you presently have visiting nurse or other home services: No Alcohol intake: never Comment: patient refuses to have person standby when using bathroom Patient Tobacco Use Status: Former Tobacco user Tobacco use type: Cigarette Cigarette Packs Per Day: 1.5 Cigarettes Per Day: 30.0 Years Smoked: 40 Second Hand Smoke Exposure: No Substance Use Type: Marijuana Advance Directives: Yes Advance Directives on File: Yes Advance Directives Date on File: 01/14/23 Do you have a plan to hurt others: No Plan Nutrition Risks: No Nutritional Risk service: No Current occupational status: retired Sexual orientation: Straight/Heterosexual Meds Allergies Allergy/AdvReac Type Severity Reaction Status Date / Time silver Allergy Unknown SKIN TEARS Verified 06/09/24 07:03 [From [employer]ESH] TAPE,PAPER Allergy Mild Itching Uncoded 05/31/24 11:28 Active Medications: Current Medications Acetaminophen (Acetaminophen 325 Mg Tablet) 650 mg PO Q6H PRN PRN Reason: Pain, Mild (Pain Scale 1-3), fever or headache Calcium Carbonate (Calcium Carbonate 750 Mg Tab.Chew) 750 mg PO Q4H PRN PRN Reason: Heartburn Magnesium Hydroxide (Milk Of Magnesia 30 Ml Oral.Susp) 30 ml PO DAILY PRN PRN Reason: Constipation Melatonin (Melatonin 3 Mg Tablet) 6 mg PO BEDTIME PRN PRN Reason: Insomnia Ondansetron HCl (Ondansetron Hcl 4 Mg/2 Ml Vial) 4 mg IVPUSH Q8H PRN PRN Reason: Nausea and Vomiting Sodium Chloride (0.9 % Sodium Chloride Flush 3 Ml Syringe) [facility] Medications ?Medication ?Instructions ?Recorded ?Confirmed ?Last Taken ?Type dapagliflozin propanediol 5 mg 5 mg PO DAILY 07/31/23 05/31/24 05/18/24 History tablet (Farxiga) fluticasone furoate 100 1 ea inhalation DAILY 04/16/24 05/31/24 05/18/24 History mcg-vilanterol 25 mcg/dose inhalation powder (Breo Ellipta) insulin glargine 100 unit/mL 12 unit subcut BEDTIME 04/16/24 05/31/24 05/09/24 History subcutaneous solution (Lantus U-100 Insulin) acetaminophen 325 mg tablet 650 mg PO Q6H PRN Fever 05/31/24 05/31/24 Unknown History albuterol sulfate 90 mcg/actuation 2 puff inhalation Q4H PRN Wheezing 05/31/24 05/31/24 Unknown History aerosol inhaler amiodarone 200 mg tablet 200 mg PO DAILY 05/31/24 05/31/24 Unknown History bisacodyl 10 mg rectal suppository 10 mg [place] DAILY PRN Constipation 05/31/24 05/31/24 Unknown History dextrose 40 % oral gel 10 g PO Q15M PRN BG< 70 05/31/24 05/31/24 Unknown History glucagon 1 mg solution for 1 mg subcut Q15M PRN BG Less then 05/31/24 05/31/24 Unknown History injection 70 magnesium hydroxide 400 mg/5 mL 30 ml PO DAILY PRN Constipation 05/31/24 05/31/24 Unknown History oral suspension (Milk of Magnesia) polyethylene glycol 3350 17 gram 17 g PO DAILY PRN Constipation 05/31/24 05/31/24 Unknown History oral powder packet sodium phosphates 19 gram-7 118 ml [place] DAILY PRN 05/31/24 05/31/24 Unknown History gram/118 mL enema (Fleet Enema) CONSTIPATION/NO RESULT FROM DULCOLAX Physical Exam 2 Vital Signs: Vital Signs: Last Vital Signs Temp 97.8 F 06/09/24 10:54 Pulse 80 06/09/24 10:54 Resp 12 06/09/24 10:54 BP 164/57 H 06/09/24 10:54 Pulse Ox 95 06/09/24 10:54 O2 Del Method Nasal Cannula 06/09/24 10:54 O2 Flow Rate 2 06/09/24 10:54 BMI result Body Mass Index 22.6 GENERAL APPEARANCE: Frail lady. In no distress. On supplemental oxygen. NECK: no carotid bruit, ++ jugular venous distention. SKIN: no suspicious lesions, warm and dry. HEART: no murmurs, regular rate and rhythm. LUNGS: Crackles both bases. ABDOMEN: soft, nontender. EXTREMITIES: no edema. PERIPHERAL PULSES: equal. NEUROLOGIC: No gross deficits, AAO X 3 Objective Labs and Meds 06/09/24 06:56 06/09/24 06:55 Lab results: Laboratory Results - last 24 hr 06/09/24 06/09/24 06/09/24 06:55 06:56 08:12 WBC 12.4 H RBC 3.51 L Hgb 10.2 L Hct 30.7 L MCV 87.5 MCH 29.1 MCHC 33.2 RDW 14.3 Plt Count 305 MPV 10.6 Immature Gran % (Auto) 0.6 H Neut % (Auto) 76.7 H Lymph % (Auto) 12.4 L Canadian % (Auto) 9.5 Eos % (Auto) 0.6 Baso % (Auto) 0.2 Lymph # (Auto) 1.5 Canadian # (Auto) 1.2 Eos # (Auto) 0.1 Baso # (Auto) 0.0 Abs Immat Gran (auto) 0.08 H Absolute Neuts (auto) 9.5 H Absolute Nucleated RBC 0.000 Nucleated RBC % (auto) 0.0 VBG pH 7.50 H VBG pCO2 33 VBG pO2 128 VBG HCO3 26 VBG O2 Saturation 99.0 VBG Base Excess 3.6 Sodium 129 L Potassium 3.9 Chloride 91 L Carbon Dioxide 29 Anion Gap 13 BUN 31 H Creatinine 1.94 H Estim Creat Clear Calc 19.5 Estimated GFR 25 Random Glucose 241 H Lactic Acid 0.8 Calcium 9.3 Troponin I High Sens 47.6 H B-Natriuretic Peptide 488 H Influenza Type A (PCR) NEGATIVE Influenza Type B (PCR) NEGATIVE RSV RNA Qual (PCR) NEGATIVE SARS-CoV-2 RNA (RT-PCR) NEGATIVE 06/09/24 08:15 WBC RBC Hgb Hct MCV MCH MCHC RDW Plt Count MPV Immature Gran % (Auto) Neut % (Auto) Lymph % (Auto) Canadian % (Auto) Eos % (Auto) Baso % (Auto) Lymph # (Auto) Canadian # (Auto) Eos # (Auto) Baso # (Auto) Abs Immat Gran (auto) Absolute Neuts (auto) Absolute Nucleated RBC Nucleated RBC % (auto) VBG pH VBG pCO2 VBG pO2 VBG HCO3 VBG O2 Saturation VBG Base Excess Sodium Potassium Chloride Carbon Dioxide Anion Gap BUN Creatinine Estim Creat Clear Calc Estimated GFR Random Glucose Lactic Acid 1.2 Calcium Troponin I High Sens B-Natriuretic Peptide Influenza Type A (PCR) Influenza Type B (PCR) RSV RNA Qual (PCR) SARS-CoV-2 RNA (RT-PCR) Imaging Radiologist's impression: Impressions Chest X-Ray 06/09/24 06:31 IMPRESSION: Consider worsening of pulmonary edema and increased right-sided pleural effusion. Decreased left-sided pleural effusion. Probable chronic interstitial lung disease. Superimposed acute inflammatory versus infectious process cannot be excluded. Underlying neoplasm cannot be excluded either. Electronically signed by: Hemanth Hughes MD 06/09/2024 10:15 AM [facility] Assessment and Plan (1) HTN (hypertension): Qualifiers: Hypertension type: renovascular hypertension Qualified Code(s): I15.0 - Renovascular hypertension Status: Acute (2) PAF (paroxysmal atrial fibrillation): Status: Acute (3) Congestive heart failure: Qualifiers: Heart failure chronicity: unspecified Heart failure type: unspecified Qualified Code(s): I50.9 - Heart failure, unspecified Status: Acute Plan Pleasant 78 year female presenting for shortness of breath. She just left the hospital yesterday and came back with congestive heart failure. She has not tolerated atrial fibrillation previously and it is possible that she had a run of atrial fibrillation at home which threw her into heart failure. In any case clinical examination is concerning for heart failure. Recommend IV diuretics. Monitor I's and O's and electrolytes along with kidney function closely. She is also complaining of productive cough and should be covered with antibiotics. Management will be conservative. Unfortunately quite frail and deconditioned and not a good candidate for any aggressive procedures currently. We will follow along with you. Thank you for allowing me to participate in the care of your patient. Please feel free to contact me if you have any questions. Procedures Date of Service Date of Service: 06/09/24
[2024-06-09 13:44] LABS: Glucose, Whole Blood 349 mg/dL (60-115)
--- NOTE | 2024-06-09 13:53 | ECG_ITS ---
Test Reason : bradycardia Blood Pressure : / mmHG Vent. Rate : 097 BPM Atrial Rate : 094 BPM P-R Int : 080 ms QRS Dur : 076 ms QT Int : 274 ms P-R-T Axes : -78 000 263 degrees QTc Int : 347 ms Sinus rhythm with complete heart block and ventriular stand still Abnormal ECG When compared with ECG of 09-JUN-2024 13:52, Ventricular standstill Referred By: Jose Bauman Electronically Signed By:Jose Bauman
--- NOTE | 2024-06-09 14:03 | PHA.MEDREC ---
Pharmacy Consult ? Medication Reconciliation Pharmacy has completed the medication reconciliation. Patient was just discharged yesterday 06/08/24 and back again today 06/09/24. Discharged packet from 06/08/24 was used for this med rec. Per discharge packet, pt is to discontinue aspirin 81 mg and furosemide and reduce metoprolol succ dose from 200 mg daily to 100 mg daily. Nurse Armenta from [facility] verified that these changes are being applied.
--- NOTE | 2024-06-09 14:10 | PC.RT ---
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
--- NOTE | 2024-06-09 14:15 | PM.IMHP ---
History of Present Illness Date of Service: 06/09/24 Chief Complaint: Hypoxia. 78-year-old female with past medical history significant for paroxysmal atrial fibrillation on Eliquis and amiodarone, history of congestive heart failure, chronic kidney disease stage 3, diabetes mellitus, major depressive disorder Recently discharged from [facility] on 06/08 after undergoing extensive workup for symptomatic anemia, required 2 units of blood transfusion no source of bleeding noted patient was discharged to rehab on all of her baseline medications, however patient is sent back to [place] ED due to hypoxia with finger oximetry in 70s patient treated with BiPAP, updraft treatment, chest x-ray concerning for congestive heart failure according to patient she was unable to sleep last night became anxious and short of breath she denies fever but complaining of chills and cough, denies choking with food, no vomiting, no nausea, no abdominal pain, no melena or hematemesis patient treated in the emergency room with IV ceftriaxone, IV steroids and updraft treatment, will be admitted to [facility] with a diagnosis of acute on chronic CHF with reduced EF and possible superadded infection And LAURO. Review of Systems Review of Systems: General no headache, no dizziness no fever CVS no chest pain, no palpitation. Respiratory shortness of breath, +cough Gastrointestinal no nausea no vomiting, no abdominal pain no urgency, no frequency Skin no rash Musculoskeletal no pain PMFSH Medical History Congestive heart failure PAF (paroxysmal atrial fibrillation) CKD (chronic kidney disease) stage 3, GFR 30-59 ml/min PAD (peripheral artery disease) Diabetic ketoacidosis Major depressive disorder, recurrent, moderate Adjustment disorder CAD (coronary artery disease) GERD (gastroesophageal reflux disease) HTN (hypertension) Carotid artery occlusion Diabetes Hiatal hernia GERD (gastroesophageal reflux disease) Family History Father No problems noted. Mother No problems noted. Surgical History History of esophagogastroduodenoscopy (EGD) Social History Household Members: None Housing: Apartment Are you a primary home child care provider to a significant other at home: No Do you presently have visiting nurse or other home services: No Alcohol intake: never Comment: patient refuses to have person standby when using bathroom Patient Tobacco Use Status: Former Tobacco user Tobacco use type: Cigarette Cigarette Packs Per Day: 1.5 Cigarettes Per Day: 30.0 Years Smoked: 40 Second Hand Smoke Exposure: No Substance Use Type: Marijuana Advance Directives: Yes Advance Directives on File: Yes Advance Directives Date on File: 01/14/23 Do you have a plan to hurt others: No Plan Nutrition Risks: No Nutritional Risk service: No Current occupational status: retired Sexual orientation: Straight/Heterosexual Meds Allergies Allergy/AdvReac Type Severity Reaction Status Date / Time silver Allergy Unknown SKIN TEARS Verified 06/09/24 07:03 [From [employer] MESH] TAPE,PAPER Allergy Mild Itching Uncoded 05/31/24 11:28 Active Medications: Current Medications Acetaminophen (Acetaminophen 325 Mg Tablet) 650 mg PO Q6H PRN PRN Reason: Pain, Mild (Pain Scale 1-3), fever or headache Melatonin (Melatonin 3 Mg Tablet) 6 mg PO BEDTIME PRN PRN Reason: Insomnia Ondansetron HCl (Ondansetron Hcl 4 Mg/2 Ml Vial) 4 mg IVPUSH Q8H PRN PRN Reason: Nausea and Vomiting Sodium Chloride (0.9 % Sodium Chloride Flush 3 Ml Syringe) 3 [facility] Medications ?Medication ?Instructions ?Recorded ?Confirmed ?Last Taken ?Type dapagliflozin propanediol 5 mg 5 mg PO DAILY 07/31/23 06/09/24 05/18/24 History tablet (Farxiga) fluticasone furoate 100 1 ea inhalation DAILY 04/16/24 06/09/24 05/18/24 History mcg-vilanterol 25 mcg/dose inhalation powder (Breo Ellipta) insulin glargine 100 unit/mL 12 unit subcut BEDTIME 04/16/24 06/09/24 05/09/24 History subcutaneous solution (Lantus U-100 Insulin) acetaminophen 325 mg tablet 650 mg PO Q6H PRN Fever 05/31/24 06/09/24 Unknown History albuterol sulfate 90 mcg/actuation 2 puff inhalation Q4H PRN Wheezing 05/31/24 06/09/24 Unknown History aerosol inhaler amiodarone 200 mg tablet 200 mg PO DAILY 05/31/24 06/09/24 Unknown History bisacodyl 10 mg rectal suppository 10 mg [place] DAILY PRN Constipation 05/31/24 06/09/24 Unknown History dextrose 40 % oral gel 10 g PO Q15M PRN BG< 70 05/31/24 06/09/24 Unknown History glucagon 1 mg solution for 1 mg subcut Q15M PRN BG Less then 05/31/24 06/09/24 Unknown History injection 70 magnesium hydroxide 400 mg/5 mL 30 ml PO DAILY PRN Constipation 05/31/24 06/09/24 Unknown History oral suspension (Milk of Magnesia) polyethylene glycol 3350 17 gram 17 g PO DAILY PRN Constipation 05/31/24 06/09/24 Unknown History oral powder packet sodium phosphates 19 gram-7 118 ml [place] DAILY PRN 05/31/24 06/09/24 Unknown History gram/118 mL enema (Fleet Enema) CONSTIPATION/NO RESULT FROM DULCOLAX Physical Exam Vital Signs and Narrative: Vital Signs: Last Vital Signs Temp 97.8 F 06/09/24 10:54 Pulse 62 06/09/24 13:41 Resp 18 06/09/24 13:41 BP 191/74 H 06/09/24 13:41 Pulse Ox 97 06/09/24 13:41 O2 Del Method Nasal Cannula 06/09/24 13:41 O2 Flow Rate 9 06/09/24 13:41 BMI result Body Mass Index 22.6 Const: Other: Gen: Awake alert x3, appears weak, frail ,pale HEENT: moist mucus membranes Neck: supple, + JVD Lungs: diminished, + crackles Heart: Regular Abd: soft, non-tender, non-distended, bowel sounds audible Ext: no edema Skin: warm/pale Neuro: alert and oriented x3, no focal findings Psych: Appropriate affect Results Labs 06/09/24 06:56 06/09/24 06:55 Labs: Laboratory Results - last 24 hr 06/09/24 06/09/24 06/09/24 06:55 06:56 08:12 MCV 87.5 MCH 29.1 MCHC 33.2 RDW 14.3 Plt Count 305 MPV 10.6 Immature Gran % (Auto) 0.6 H Neut % (Auto) 76.7 H Lymph % (Auto) 12.4 L Sampson % (Auto) 9.5 Eos % (Auto) 0.6 Baso % (Auto) 0.2 Lymph # (Auto) 1.5 Sampson # (Auto) 1.2 Eos # (Auto) 0.1 Baso # (Auto) 0.0 Abs Immat Gran (auto) 0.08 H Absolute Neuts (auto) 9.5 H Absolute Nucleated RBC 0.000 Nucleated RBC % (auto) 0.0 VBG pH 7.50 H VBG pCO2 33 VBG pO2 128 VBG HCO3 26 VBG O2 Saturation 99.0 VBG Base Excess 3.6 Anion Gap 13 Estim Creat Clear Calc 19.5 Estimated GFR 25 POC Glucose Random Glucose 241 H Lactic Acid 0.8 Calcium 9.3 Troponin I High Sens 47.6 H B-Natriuretic Peptide 488 H Influenza Type A (PCR) NEGATIVE Influenza Type B (PCR) NEGATIVE RSV RNA Qual (PCR) NEGATIVE SARS-CoV-2 RNA (RT-PCR) NEGATIVE 06/09/24 06/09/24 08:15 13:40 MCV MCH MCHC RDW Plt Count MPV Immature Gran % (Auto) Neut % (Auto) Lymph % (Auto) Sampson % (Auto) Eos % (Auto) Baso % (Auto) Lymph # (Auto) Sampson # (Auto) Eos # (Auto) Baso # (Auto) Abs Immat Gran (auto) Absolute Neuts (auto) Absolute Nucleated RBC Nucleated RBC % (auto) VBG pH VBG pCO2 VBG pO2 VBG HCO3 VBG O2 Saturation VBG Base Excess Anion Gap Estim Creat Clear Calc Estimated GFR POC Glucose 349 H Random Glucose Lactic Acid 1.2 Calcium Troponin I High Sens B-Natriuretic Peptide Influenza Type A (PCR) Influenza Type B (PCR) RSV RNA Qual (PCR) SARS-CoV-2 RNA (RT-PCR) Imaging Radiologist's Impressions: Impressions Chest X-Ray 06/09/24 06:31 IMPRESSION: Consider worsening of pulmonary edema and increased right-sided pleural effusion. Decreased left-sided pleural effusion. Probable chronic interstitial lung disease. Superimposed acute inflammatory versus infectious process cannot be excluded. Underlying neoplasm cannot be excluded either. Electronically signed by: Hemanth Hughes MD 06/09/2024 10:15 AM [facility] Assessment and Plan (1) CHF (congestive heart failure): Status: Acute (2) PAF (paroxysmal atrial fibrillation): Status: Acute (3) Congestive heart failure: Qualifiers: Heart failure chronicity: unspecified Heart failure type: unspecified Qualified Code(s): I50.9 - Heart failure, unspecified Status: Acute Plan 78 year old female with a history of COPD, HFrEF, paroxysmal atrial fibrillation on Eliquis, CKD, diabetes, coronary artery disease, 2 recent admissions for atrial fibrillation with rapid ventricular response and CHF, and the most recent admission for acute symptomatic anemia, discharged to rehab on June 16 sent back to emergency room due to worsening shortness of breath and hypoxia Acute on chronic hypoxic respiratory failure Likely due to acute on ch CHF exacerbation with reduced EF and some component of superadded respiratory infection BNP 488, troponin 47.6, EKG chronic left bundle branch block Chest x-ray showed worsening pulmonary edema and increased right-sided pleural effusion, decreased left-sided pleural effusion, superimposed acute inflammatory versus infectious process not excluded. Cardiology consult obtained, Dr. Bauman recommend IV diuretics, and conservative management due to multiple comorbidities, frailty and deconditioning. IV ceftriaxone initiated in ED, will use IV Zosyn Monitor CBC and blood cultures i/os ,daily wt. LAURO on chronic kidney disease stage III Question cardiorenal, diurese and follow BMP closely. Chronic normocytic anemia stable H&H recently underwent upper and lower endoscopy that was negative, monitor CBC Paroxysmal atrial fibrillation on metoprolol and amiodarone for rate control and Eliquis for anticoagulation Diabetes mellitus type 2 place on diabetic diet, insulin sliding scale and Lantus Mood disorder/dementia resume home medications med rec pending GERD resume PPI COPD, no acute exacerbation noted resume home inhalers PAD/CAD continue aspirin/Lipitor/beta-blockers DNR DNI Eliquis In my clinical judgment patient require 2 night inpatient hospitalization for management of acute CHF requiring IV diuretics, IV antibiotics for superadded infection. Quality Stroke Does the patient have a stroke diagnosis?: No VTE Prior VTE?: No VTE Risk Level:: Medical - moderate - high VTE Device Contraindication: Treatment Not Indicated VTE Drug Contraindication: N/A - Med Ordered
[2024-06-09] MEDS: ondansetron HCL 4 MG/2 ML VIAL IVPUSH (14:21)
[2024-06-09] MEDS: Morphine Sulfate 2 MG/ML CARTRIDGE 5 MG IVPUSH (14:21)
[2024-06-09] MEDS: Scopolamine 1.5 MG PATCH.TD.3 EAR-BEHIND (14:26)
[2024-06-09] MEDS: LORazepam 2 MG/ML VIAL 1 MG IVPUSH (14:26)
--- NOTE | 2024-06-09 14:29 | PC.NURSE ---
This RN notified to come to bedside d/t patient bradying down into the 40s, desating into the 70s, code cart brought into room, RSI kit pulled, resp at bedside. At this time it was deemed that patient was a DNR/DNI, ED MD/PA at bedside admitting MD/PA at bedside as well as cardiology. Pt at this time remains to be in a complete heart block, going in and out, has periods of asystole. First episode of being unresponsive was at 1345, HR 56, 92% on 2L NC. POC over 300, Pt went unresponsive again at 1356, at 1359 pt was agonally breathing, had no pulse at this time and was diaphoretic. Pt has had multiple episodes of vomiting post zofran administration. Pt medicated per SEP. 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 monitors removed, pt given new blankets and room cleaned at this time.
--- NOTE | 2024-06-09 14:33 | P.EN_ITS ---
Event Note Date of Service: 06/09/24 Event Note: Called by RN since patient noted to have bradycardia, and desaturated to 70s Patient noted to be pale, short of breath, nauseous, vomiting Patient noted to be unresponsive at 13:45, O2 92% on 2 L, point of care greater than 300, monitor showed complete heart block/periods of asystole /intermittent heart rate in 50s Noted to have recurrent episodes of unresponsiveness with agonal breathing, had no pulse noted to be diaphoretic Dr. Bauman at bedside, since patient with multiple comorbidities, recurrent hospitalization with atrial fibrillation RVR, CHF, anemia, frailty and significant deconditioning it was decided after multiple discussions by me and with Dr. 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 Time Spent With Patient Time: Total time managing care of this patient today ____ minutes.
--- NOTE | 2024-06-09 17:16 | PC.NURSE ---
Pt arrived to unit with Daughter and Grand daughter at bedside. Pt sleeping, non-responsive to voice. No signs and symptoms of respiratory distress at this time, pt appears comfortable. 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 Family states to call with any updates or changes throughout the night. Daughter and Grand daughter phone number in EMR.
[2024-06-09] MEDS: 0.9 % Sodium Chloride Flush 3 ML SYRINGE IVFLUSH (22:26)
[2024-06-10] MEDS: LORazepam 2 MG/ML VIAL 1 MG IVPUSH ×2 (04:59→18:29)
[2024-06-10 07:28] VITALS: RESP 12
[2024-06-10] MEDS: 0.9 % Sodium Chloride Flush 3 ML SYRINGE IVFLUSH ×2 (08:48→20:17)
[2024-06-10] MEDS: Morphine Sulfate 2 MG/ML CARTRIDGE 3 MG IVPUSH (08:59)
--- NOTE | 2024-06-10 09:07 | PC.NURSE ---
pt on pelt dropper, requesting pain medication
--- NOTE | 2024-06-10 10:59 | P.PNIM_ITS ---
Subjective Subjective Date of Service: 06/10/24 Interval History: unresponsive; appears comfortable Review of Systems Review of Systems: Yes Unobtainable due to mental status Physical Exam 2 Vital Signs: Vital Signs: Last Vital Signs Temp 97.8 F 06/09/24 10:54 Pulse 62 06/09/24 13:41 Resp 12 06/10/24 07:28 BP 191/74 H 06/09/24 13:41 Pulse Ox 97 06/09/24 13:41 O2 Del Method Nasal Cannula 06/10/24 07:28 O2 Flow Rate 2 06/10/24 07:28 BMI result Body Mass Index 22.6 Gen: in no acute distress Lungs: normal respiratory effort Heart: regular rate Skin: warm/well-perfused Neuro: somnolent Objective Data Active Medications Acetaminophen (Acetaminophen 325 Mg Tablet) 650 mg PO Q6H PRN PRN Reason: Pain, Mild (Pain Scale 1-3), fever or headache Lorazepam (Lorazepam 2 Mg/Ml Vial) 1 mg IVPUSH Q4H PRN PRN Reason: restlessness Last Admin: 06/10/24 04:59 Dose: 1 mg Documented By: MICHEL Morphine Sulfate (Morphine Sulfate 2 Mg/Ml Cartridge) 3 mg IVPUSH Q1H PRN; Protocol PRN Reason: sob/distress Last Admin: 06/10/24 08:59 Dose: 3 mg Documented By: SAIDA Ondansetron HCl (Ondansetron Hcl 4 Mg/2 Ml Vial) 4 mg IVPUSH Q8H PRN PRN Reason: Nausea and Vomiting Scopolamine (Scopolamine 1.5 Mg Patch.Td.3) 1.5 mg EAR-BEHIND Q72H [facility] Last Admin: 06/09/24 14:26 Dose: 1.5 mg Documented By: JUDY Sodium Chloride (0.9 % Sodium Chloride Flush 3 Ml Syringe) 3 ml IVFLUSH QSHIFT [facility] Last Admin: 06/10/24 08:48 Dose: 3 ml Documented By: SAIDA Labs 06/09/24 06:56 06/09/24 06:55 Labs: Laboratory Results - last 24 hr 06/09/24 13:40 POC Glucose 349 H Microbiology Microbiology Results: Microbiology 06/09/24 08:16 Blood Culture - Preliminary Blood - Venous No growth after 24 hours. 06/09/24 08:15 Blood Culture - Preliminary Blood - Venous No growth after 24 hours. Assessment and Plan (1) Complete heart block: Status: Acute Plan d2 for 78yo F with COPD, HFrEF, pAF, CKD, DM2, CAD sent from [facility] to hospital with hypoxia + dyspnea, admitted for CHF exacerbation. Rapidly developed bradycardia with complete heart block and asystole; became unresponsive with agonal breathing. In discussion among email marketing assistant, admitting hospitalist, and pt's daughter/HCP Marian, patient was transitioned to DATABASE ADMINISTRATION ASSOCIATE care - morphine for pain/resp distress - lorazepam for anxiety - scopalamine patch for secretions Total time managing care of this patient today: 35 minutes. Quality Stroke Does the patient have a stroke diagnosis?: No VTE Prior VTE?: No VTE Risk Level:: Medical - moderate - high VTE Device Contraindication: Treatment Not Indicated VTE Drug Contraindication: N/A - Med Ordered
[2024-06-10 11:04] VITALS: RESP 16
--- NOTE | 2024-06-10 13:34 | MHC.CM.PN ---
IMM 06/10/24 Female 78yrs BIBA from [facility]. She had been discharged from [facility] 05/31/24. She was sent for STR at discharge. She returns with AFIB and HF. 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 She has a HCP on file. Her only child, Marian is her HCP. Marian has an adult dtr, pts grchild. Mraian requested a call from . She has questions about the DX. notified, and Marian is aware that he will be calling her later today. DP is SPD TECH @ [facility] as it is believed that is immanent. CM will follow for change in needs and discharge planning.
[2024-06-10 15:07] VITALS: RESP 14
[2024-06-10 19:43] VITALS: RESP 14
[2024-06-10 23:43] VITALS: RESP 14
[2024-06-11] VITALS (7 sets, daily range): PULSE 62; RESP 14–20; O2SAT 92
--- NOTE | 2024-06-11 12:10 | P.PNIM_ITS ---
Subjective Subjective Date of Service: 06/11/24 Interval History: Comfortable and even eating at this point. Alert and oriented. Does not want pacemaker. Review of Systems Review of Systems: Yes all other systems are reviewed and are negative Physical Exam 2 Vital Signs: Vital Signs: Last Vital Signs Temp 97.8 F 06/09/24 10:54 Pulse 62 06/09/24 13:41 Resp 17 06/11/24 11:56 BP 191/74 H 06/09/24 13:41 Pulse Ox 97 06/09/24 13:41 O2 Del Method Nasal Cannula 06/10/24 11:04 O2 Flow Rate 2 06/10/24 11:04 BMI result Body Mass Index 22.6 Gen: in no acute distress Neck: supple Lungs: diminished Heart: regular rate and rhythm Abd: soft, non-tender, non-distended Ext: no edema Skin: warm/well-perfused Neuro: alert and oriented x3, no focal findings Objective Data Active Medications Acetaminophen (Acetaminophen 325 Mg Tablet) 650 mg PO Q6H PRN PRN Reason: Pain, Mild (Pain Scale 1-3), fever or headache Lorazepam (Lorazepam 2 Mg/Ml Vial) 1 mg IVPUSH Q4H PRN PRN Reason: restlessness Last Admin: 06/10/24 18:29 Dose: 1 mg Documented By: TED Morphine Sulfate (Morphine Sulfate 2 Mg/Ml Cartridge) 3 mg IVPUSH Q1H PRN; Protocol PRN Reason: sob/distress Last Admin: 06/10/24 08:59 Dose: 3 mg Documented By: SAIDA Ondansetron HCl (Ondansetron Hcl 4 Mg/2 Ml Vial) 4 mg IVPUSH Q8H PRN PRN Reason: Nausea and Vomiting Scopolamine (Scopolamine 1.5 Mg Patch.Td.3) 1.5 mg EAR-BEHIND Q72H [facility] Last Admin: 06/09/24 14:26 Dose: 1.5 mg Documented By: JUDY Sodium Chloride (0.9 % Sodium Chloride Flush 3 Ml Syringe) 3 ml IVFLUSH QSHIFT [facility] Last Admin: 06/11/24 09:08 Dose: Not Given Documented By: ARNAV Non-Admin Reason: Previously Administered Labs 06/09/24 06:56 06/09/24 06:55 Microbiology Microbiology Results: Microbiology 06/09/24 08:15 Blood Culture - Preliminary Blood - Venous No growth after 48 hours. 06/09/24 08:16 Blood Culture - Preliminary Blood - Venous No growth after 48 hours. Assessment and Plan (1) Complete heart block: Status: Acute Plan d2 for 78yo F with COPD, HFrEF, pAF, CKD, DM2, CAD sent from [facility] to hospital with hypoxia + dyspnea, admitted for CHF exacerbation. Rapidly developed bradycardia with complete heart block and asystole; became unresponsive with agonal breathing. In discussion among explosive operator supervisor, admitting hospitalist, and pt's daughter/HCP Marian, patient was transitioned to BOOK REPAIRER care with morphine, lorazepam, and scopolamine as pt's was felt to be imminent. Discussed pt's improvement with daughter/HCP Marian yesterday. If she continues to improve, plan will be for transfer to SNF with hospice services. Discussed with pt today and she understands. She adamantly does not want a pacemaker. Total time managing care of this patient today: 35 minutes. Quality Stroke Does the patient have a stroke diagnosis?: No VTE Prior VTE?: No VTE Risk Level:: Medical - moderate - high VTE Device Contraindication: Treatment Not Indicated VTE Drug Contraindication: N/A - Med Ordered
[2024-06-11] MEDS: 0.9 % Sodium Chloride Flush 3 ML SYRINGE IVFLUSH ×2 (17:27→19:13)
[2024-06-11] MEDS: Morphine Sulfate 2 MG/ML CARTRIDGE 3 MG IVPUSH (20:13)
[2024-06-11] MEDS: Albuterol Sulfate (0.083%) 2.5 MG/3 ML VIAL.NEB INHALE (21:24)
[2024-06-11] MEDS: LORazepam 2 MG/ML VIAL 1 MG IVPUSH (22:09)
[2024-06-12] MEDS: Morphine Sulfate 2 MG/ML CARTRIDGE 3 MG IVPUSH ×5 (02:06→16:00)
[2024-06-12 03:55] VITALS: RESP 16
[2024-06-12] MEDS: LORazepam 2 MG/ML VIAL 1 MG IVPUSH (04:26)
[2024-06-12 07:28] VITALS: RESP 14
[2024-06-12] MEDS: 0.9 % Sodium Chloride Flush 3 ML SYRINGE IVFLUSH ×2 (08:18→16:01)
--- NOTE | 2024-06-12 10:03 | P.PNIM_ITS ---
Subjective Subjective Date of Service: 06/12/24 Interval History: short of breath overnight by report this AM in NAD, though somnolent Review of Systems Review of Systems: Yes Unobtainable due to mental status Physical Exam 2 Vital Signs: Vital Signs: Last Vital Signs Temp 97.8 F 06/09/24 10:54 Pulse 62 06/11/24 21:27 Resp 14 06/12/24 07:28 BP 191/74 H 06/09/24 13:41 Pulse Ox 97 06/09/24 13:41 O2 Del Method Nasal Cannula 06/11/24 23:11 O2 Flow Rate 2 06/11/24 23:11 BMI result Body Mass Index 22.6 Gen: in no acute distress Neck: supple Lungs: diminished Heart: regular rate and rhythm Abd: soft, non-tender, non-distended Ext: no edema Skin: warm/well-perfused Neuro: alert and oriented x3, no focal findings Objective Data Active Medications Acetaminophen (Acetaminophen 325 Mg Tablet) 650 mg PO Q6H PRN PRN Reason: Pain, Mild (Pain Scale 1-3), fever or headache Albuterol Sulfate (Albuterol Sulfate (0.083%) 2.5 Mg/3 Ml Vial.Neb) 2.5 mg INHALE Q2H PRN PRN Reason: Shortness of Breath/Wheezing Last Admin: 06/11/24 21:24 Dose: 2.5 mg Documented By: MARICEL Lorazepam (Lorazepam 2 Mg/Ml Vial) 1 mg IVPUSH Q4H PRN PRN Reason: restlessness Last Admin: 06/12/24 04:26 Dose: 1 mg Documented By: KAL Morphine Sulfate (Morphine Sulfate 2 Mg/Ml Cartridge) 3 mg IVPUSH Q1H PRN; Protocol PRN Reason: sob/distress Last Admin: 06/12/24 08:14 Dose: 3 mg Documented By: ARNAV Ondansetron HCl (Ondansetron Hcl 4 Mg/2 Ml Vial) 4 mg IVPUSH Q8H PRN PRN Reason: Nausea and Vomiting Scopolamine (Scopolamine 1.5 Mg Patch.Td.3) 1.5 mg EAR-BEHIND Q72H [facility] Last Admin: 06/09/24 14:26 Dose: 1.5 mg Documented By: JUDY Sodium Chloride (0.9 % Sodium Chloride Flush 3 Ml Syringe) 3 ml IVFLUSH QSHIFT [facility] Last Admin: 06/12/24 08:18 Dose: 3 ml Documented By: ARNAV Labs 06/09/24 06:56 06/09/24 06:55 Microbiology Microbiology Results: Microbiology 06/09/24 08:15 Blood Culture - Preliminary Blood - Venous No growth after 48 hours. 06/09/24 08:16 Blood Culture - Preliminary Blood - Venous No growth after 48 hours. Assessment and Plan (1) Complete heart block: Status: Acute Plan d3 for 78yo F with COPD, HFrEF, pAF, CKD, DM2, CAD sent from [facility] to hospital with hypoxia + dyspnea, admitted for CHF exacerbation. Rapidly developed bradycardia with complete heart block and asystole; became unresponsive with agonal breathing. In discussion among charge coordinator, admitting hospitalist, and pt's daughter/HCP Marian, patient was transitioned to MOTORCYCLE POLICE care with morphine, lorazepam, and scopolamine as pt's was felt to be imminent. Discussed pt's improvement with daughter/HCP Marian 06/10/24. Discussed with pt 06/11/24 and she affirms that she does want a pacemaker. She remains MOTORCYCLE POLICE in the hospital but plan is for transfer SNF with hospice services. Total time managing care of this patient today: 35 minutes. Quality Stroke Does the patient have a stroke diagnosis?: No VTE Prior VTE?: No VTE Risk Level:: Medical - moderate - high VTE Device Contraindication: Treatment Not Indicated VTE Drug Contraindication: N/A - Med Ordered
[2024-06-12 12:00] VITALS: RESP 14
--- NOTE | 2024-06-12 12:31 | PM.DS ---
DS: Providers Provider Date of Service: 06/12/24 Date of admission: 06/09/24 11:51 Date of discharge: 06/12/24 Primary care physician: Gene Sanchez MD Consults: 06/09/24 11:53 Consult to Cardiology Routine Consulting Provider: Jose Bauman Reason for consultation: chf Has provider been notified: No DS: Diagnosis Discharge Diagnosis (1) Complete heart block: Status: Acute (2) Congestive heart failure: Status: Acute (3) Acute hypoxic respiratory failure: Status: Resolved (4) Ischemic cardiomyopathy: Status: Acute (5) Acute on chronic HFrEF (heart failure with reduced ejection fraction): Status: Acute (6) Acute kidney failure: Status: Acute DS: Summary Hospital Course Hospital Course: From the history and physical by the admitting hospitalist, Maurice Bradley, 06/09/24: 78-year-old female with past medical history significant for paroxysmal atrial fibrillation on Eliquis and amiodarone, history of congestive heart failure, chronic kidney disease stage 3, diabetes mellitus, major depressive disorder Recently discharged from [facility] on 06/08 after undergoing extensive workup for symptomatic anemia, required 2 units of blood transfusion no source of bleeding noted patient was discharged to rehab on all of her baseline medications, however patient is sent back to [facility] due to hypoxia with finger oximetry in 70s patient treated with BiPAP, updraft treatment, chest x-ray concerning for congestive heart failure according to patient she was unable to sleep last night became anxious and short of breath she denies fever but complaining of chills and cough, denies choking with food, no vomiting, no nausea, no abdominal pain, no melena or hematemesis patient treated in the emergency room with IV ceftriaxone, IV steroids and updraft treatment, will be admitted to [facility] with a diagnosis of acute on chronic CHF with reduced EF and possible superadded infection And LAURO. 78yo F with COPD, HFrEF, pAF, CKD, DM2, CAD sent from [facility] to hospital with hypoxia + dyspnea, admitted for CHF exacerbation. Rapidly developed bradycardia with complete heart block and asystole; became unresponsive with agonal breathing. In discussion among tenant coordinator, admitting hospitalist, and pt's daughter/HCP Marian, patient was transitioned to MAGNETIC TESTING TECHNICIAN care with morphine, lorazepam, and scopolamine as pt's was felt to be imminent. She seemed to stabilize to some degree and did affirm to me that she did not want a pacemaker and wished to continue comfort care. She was transferred to [facility] for ongoing comfort measures care. Time Attestation Discharge Coordination Time (in mins): 40 Quality: Safe Use of Opioids Does Pt have an Active Cancer Diagnosis on the Problem List?: No Quality: Stroke Does the patient have a stroke diagnosis?: No Physical Exam Vital Signs: Vital Signs: Last Vital Signs Temp 97.8 F 06/09/24 10:54 Pulse 62 06/11/24 21:27 Resp 14 06/12/24 07:28 BP 191/74 H 06/09/24 13:41 Pulse Ox 97 06/09/24 13:41 O2 Del Method Nasal Cannula 06/11/24 23:11 O2 Flow Rate 2 06/11/24 23:11 BMI result Body Mass Index 22.6 Gen: in no acute distress Neck: supple Lungs: diminished Heart: regular rate and rhythm Abd: soft, non-tender, non-distended Ext: no edema Skin: warm/well-perfused Neuro: alert and oriented x3, no focal findings DS: Data Data Completed and Pending Completed studies during hospitalization [Text1]: Laboratory Results WBC 12.4 X10*3/uL (4.8-10.8) H 06/09/24 06:56 RBC 3.51 X10*6/uL (4.20-5.50) L 06/09/24 06:56 Hgb 10.2 g/dl (12.0-16.0) L 06/09/24 06:56 Hct 30.7 % (37.0-47.0) L 06/09/24 06:56 MCV 87.5 fL (80.0-98.0) 06/09/24 06:56 MCH 29.1 pg (27.0-33.0) 06/09/24 06:56 MCHC 33.2 g/dl (31.0-35.0) 06/09/24 06:56 RDW 14.3 % (11.0-16.0) 06/09/24 06:56 Plt Count 305 X10*3/uL (160-400) 06/09/24 06:56 MPV 10.6 fL (9.4-12.3) 06/09/24 06:56 Immature Gran % (Auto) 0.6 % (0.0-0.4) H 06/09/24 06:56 Neut % (Auto) 76.7 % (45-73) H 06/09/24 06:56 Lymph % (Auto) 12.4 % (20-40) L 06/09/24 06:56 [place] % (Auto) 9.5 % (2-11) 06/09/24 06:56 Eos % (Auto) 0.6 % (0-4) 06/09/24 06:56 Baso % (Auto) 0.2 % (0-2) 06/09/24 06:56 Lymph # (Auto) 1.5 X10*3/uL (1.2-4.9) 06/09/24 06:56 [place] # (Auto) 1.2 X10*3/uL (0.1-1.2) 06/09/24 06:56 Eos # (Auto) 0.1 X10*3/uL (0.0-0.4) 06/09/24 06:56 Baso # (Auto) 0.0 X10*3/uL (0.0-0.2) 06/09/24 06:56 Abs Immat Gran (auto) 0.08 X10*3/uL (0.00-0.03) H 06/09/24 06:56 Absolute Neuts (auto) 9.5 x10*3/uL (2.0-8.3) H 06/09/24 06:56 Absolute Nucleated RBC 0.000 X10*3/uL (0.0-0.012) 06/09/24 06:56 Nucleated RBC % (auto) 0.0 /100WBC (0.0-0.2) 06/09/24 06:56 VBG pH 7.50 (7.32-7.43) H 06/09/24 08:12 VBG pCO2 33 mmHg 06/09/24 08:12 VBG pO2 128 mmHg 06/09/24 08:12 VBG HCO3 26 mmol/L (22-26) 06/09/24 08:12 VBG O2 Saturation 99.0 % 06/09/24 08:12 VBG Base Excess 3.6 mmol/L 06/09/24 08:12 Sodium 129 mmol/L (135-145) L 06/09/24 06:55 Potassium 3.9 mmol/L (3.3-5.1) 06/09/24 06:55 Chloride 91 mmol/L (96-108) L 06/09/24 06:55 Carbon Dioxide 29 mmol/L (22-29) 06/09/24 06:55 Anion Gap 13 (12-20) 06/09/24 06:55 BUN 31 mg/dL (9-16) H 06/09/24 06:55 Creatinine 1.94 mg/dL (0.5-1.4) H 06/09/24 06:55 Estim Creat Clear Calc 19.5 06/09/24 06:55 Estimated GFR 25 06/09/24 06:55 POC Glucose 349 mg/dL (60-115) H 06/09/24 13:40 Random Glucose 241 mg/dL (60-115) H 06/09/24 06:55 Lactic Acid 1.2 mmol/L (0.5-2.0) 06/09/24 08:15 Calcium 9.3 mg/dL (8.4-10.2) 06/09/24 06:55 Troponin I High Sens 47.6 ng/L (<3.5-17.0) H 06/09/24 06:55 B-Natriuretic Peptide 488 pg/mL (<100) H 06/09/24 06:55 Influenza Type A (PCR) NEGATIVE (Negative) 06/09/24 06:56 Influenza Type B (PCR) NEGATIVE (Negative) 06/09/24 06:56 RSV RNA Qual (PCR) NEGATIVE (Negative) 06/09/24 06:56 SARS-CoV-2 RNA (RT-PCR) NEGATIVE (Negative) 06/09/24 06:56 Impressions Chest X-Ray 06/09/24 06:31 IMPRESSION: Consider worsening of pulmonary edema and increased right-sided pleural effusion. Decreased left-sided pleural effusion. Probable chronic interstitial lung disease. Superimposed acute inflammatory versus infectious process cannot be excluded. Underlying neoplasm cannot be excluded either. Electronically signed by: Hemanth Hughes MD 06/09/2024 10:15 AM [facility] Labs on day of discharge: Preliminary micro results at discharge 06/09/24 08:15 Blood Culture - Preliminary Blood - Venous No growth after 48 hours. 06/09/24 08:16 Blood Culture - Preliminary Blood - Venous No growth after 48 hours. Discharge Plan Discharge Anticipated Discharge Date/Time: 06/12/24 12:24 Patient Disposition: Hospice - Medical Facility Discharge Diagnosis: heart block respiratory failure CHF [facility]errals[facility] [Other] - 1 Week Gene Sanchez MD [Primary Care Provider] - 1 Week Discharge Medications: New scopolamine base [Transderm-Scop] 1 mg over 3 days Patch 3 Day 1.5 mg EAR-BEHIND Q72H Qty: 10 0RF morphine concentrate 100 mg/5 mL (20 mg/mL) solution 5 mg PO Q3H PRN (Reason: pain/comfort) 15 Days Qty: 30 0RF Rx Instructions: Partial Fill upon patient request. lorazepam 0.5 mg tablet 0.5 mg PO Q6H PRN (Reason: anxiety/restlessness) 4 Days Qty: 16 0RF Continued acetaminophen 325 mg Tablet 650 mg PO Q6H PRN (Reason: Fever) magnesium hydroxide [Milk of Magnesia] 400 mg/5 mL Suspension 30 ml PO DAILY PRN (Reason: Constipation) bisacodyl 10 mg Suppository 10 mg [place] DAILY PRN (Reason: Constipation) albuterol sulfate 90 mcg/actuation Hfa Aerosol Inhaler 2 puff INHALATION Q4H PRN (Reason: Wheezing) Fleet Enema 19-7 gram/118 mL Enema 118 ml [place] DAILY PRN (Reason: CONSTIPATION/NO RESULT FROM DULCOLAX) Discontinued bumetanide 1 mg Tablet 1 mg PO DAILY Qty: 90 0RF Protocol: Hold for SBP< HOLD for SBP < : 90 hydralazine 50 mg Tablet 50 mg PO BID Qty: 60 0RF Protocol: Hold for SBP< HOLD for SBP < : 90 polyethylene glycol 3350 17 gram Powder In Packet 17 g PO DAILY PRN (Reason: Constipation) Rx Instructions: If patient had no BM in 72 hours glucagon 1 mg Recon Soln 1 mg SUBCUT Q15M PRN (Reason: BG Less then 70) Rx Instructions: until target blood sugar attained amiodarone 200 mg tablet 200 mg PO DAILY dextrose 40 % Gel 10 g PO Q15M PRN (Reason: BG< 70) Rx Instructions: until symptoms of low blood sugar are controlled metoprolol succinate 100 mg Tablet Extended Release 24 Hr 100 mg PO DAILY Qty: 30 0RF Protocol: Hold for SBP/HR < HOLD for SBP < : 90 HOLD for HR < : 60 guaifenesin 100 mg/5 mL Liquid 100 mg PO TID PRN (Reason: cough) Qty: 473 0RF insulin glargine [Lantus U-100 Insulin] 100 unit/mL solution 12 unit subcut BEDTIME fluticasone furoate-vilanterol [Breo Ellipta] 100-25 mcg/dose blister with device 1 ea INHALATION DAILY atorvastatin 40 mg Tablet 40 mg PO BEDTIME Qty: 30 0RF donepezil 5 mg Tablet 5 mg PO BEDTIME Qty: 30 0RF trazodone 50 mg Tablet 50 mg PO BEDTIME PRN (Reason: Insomnia) Qty: 30 0RF omeprazole 40 mg Capsule,Delayed Release(Dr/Ec) 40 mg PO DAILY@0630 Qty: 30 0RF risperidone 0.5 mg Tablet 0.5 mg PO BID Qty: 60 0RF cholecalciferol (vitamin D3) 25 mcg (1,000 unit) capsule 25 mcg PO DAILY Qty: 30 0RF Eliquis 2.5 mg Tablet 2.5 mg PO BID Qty: 60 0RF isosorbide dinitrate 10 mg Tablet 10 mg PO BID Qty: 60 0RF Protocol: Hold for SBP< HOLD for SBP < : 90 Farxiga 5 mg tablet 5 mg PO DAILY Discharge Orders: Discharge Order (Routine); Ordered 06/12/24 Ordered By: Lilly Thompson Diet: Regular diet Activity on Discharge: As tolerated Stand Alone Forms: Patient Portal Discharge page Print Language: Cymraes Care Plan Goals: comfort care Health Concerns: heart block respiratory failure CHF Plan of Treatment: medications for comfort only: morphine, lorazepam, scopolamine, laxatives, acetaminophen oxygen for comfort Assessment: See Discharge Summary.
[2024-06-12 12:38] VITALS: PULSE 76; RESP 18; O2SAT 93
[2024-06-12] MEDS: Albuterol Sulfate (0.083%) 2.5 MG/3 ML VIAL.NEB INHALE (12:38)
--- NOTE | 2024-06-12 12:49 | MHC.CM.PN ---
pt to be dcd today at 3:30 rn transport to [facility] at 3:30 hcp/dgter is aware
[2024-06-12] MEDS: Scopolamine 1.5 MG PATCH.TD.3 EAR-BEHIND (13:46)
[2024-06-12 15:51] VITALS: RESP 16
--- OUTSIDE RECORDS SUMMARY | 2024-06-14 23:28 | XMS_ITS | Data Portability ---
Author Organization [facility], Main Office Address [address] , [address] [place] [address] Care Team Providers Care Derrick Engineer Name Role Phone ERMA ESPINAL - 2ND FLOOR OTHER Assessment No assessment recorded. Plan of Treatment Reminders Order Date Submit Date Provider Last Modified By Organization Details Last Modified Time Details Appointments Admitting H&P 2023 08:35P M Teresita Wiley MD Not available Not available Not available Lab None recorded. Referral None recorded. Procedures None recorded. Surgeries None recorded. Imaging None recorded. Medication Orders None recorded. Patient TargetsNo targets recorded. Patient InstructionsNo instructions recorded. Reason for Referral None Reported. Problems Name Problem SNOMED Code Status Onset Date Resolution Date Notes Provider Name and Address Organization Details Recorded Time Asthenia 67260972 Active 2022 GAMA CURTIS NP [address] [facility], [address], [place], [address], [facility] 3 11:21:54 Diabetic foot ulcer 057038384 Active 2022 GAMA CURTIS NP [address] [facility], [address], [place], [address], [facility] 3 11:22:02 Type 2 diabetes mellitus 08986755 Active 2022 GAMA CURTIS NP [address] , [address], [place], [address], [facility] 3 11:22:08 Essential hypertension 05837670 Active 2022 GAMA CURTIS NP [address], [address], [place], [address], [facility] 3 11:22:22 Gastroesophage al reflux disease without esophagitis 447099272 Active 2022 GAMA CURTIS, ORACLE APPLICATION[employer] DEVELOPER [address], [address], [place], [address], [facility] [employer] [facility] 3 11:22:28 Chronic obstructive pulmonary disease 85209366 Active 2022 GAMA CURTIS, ORACLE APPLICATIONS DEVELOPER [address], [address], [place], [address], [facility] [employer] [facility] 3 11:22:42 Hyperlipidemia 67822000 Active 2022 GAMA CURTIS, ORACLE APPLICATIONS DEVELOPER [address], [address], [place], [address], [facility] [employer] [facility] 3 11:22:49 Major depressive disorder 340430648 Active 2022 GAMA CURTIS, ORACLE APPLICATIONS DEVELOPER [address], [address], [place], [address], [facility] [employer] [facility] 3 11:23:08 Anxiety 30367851 Active 2022 GAMA CURTIS, ORACLE APPLICATIONS DEVELOPER [address], [address], [place], [address], [facility] [employer] [facility] 3 11:23:14 Recurrent falls 833965671 Active 2022 GAMA CURTIS, ORACLE APPLICATIONS DEVELOPER [address], [address], [place], [address], [facility] [employer] [facility] 3 14:29:21 Osteomyelitis 47425265 Active 2022 GAMA CURTIS, ORACLE APPLICATIONS DEVELOPER [address], [address], [place], [address], [facility] [employer] [facility] 3 14:29:36 Diabetic foot ulcer 865417999 Active 2022 Teresita Wiley MD [address], [address], [place], [address], [employer] [facility] 3 16:40:03 Coronary arterioscleros is 37230749 Active 2022 Teresita Wiley MD [address], [address], [place], [address], [employer] [facility] 3 16:53:50 Cigarette smoker 89512529 Active 2022 Teresita Wiley MD [address] [facility], [address], [place], [address], [employer] [facility] 3 16:54:18 Respiratory failure 837740641 Active 2023 Domi Richey NP [address] [facility], [address], [place], [address], [facility] [employer] [facility] 4 12:36:43 Problem Notes None recorded. Medical Equipment None Reported. Allergies Allergen ID Allergen Name Allergen Category Reaction Reaction Severity Criticality Documentation Date Start Date Code Code System Note Provider Name and Address Organization Details Recorded Time 61543 adhesive tape environme nt,medica tion Not available Not available Not available 01/30/2023 [id number] UNK GAMA CURTIS NP [address] [facility], [facility] [address], [place], [address], [facility] [employer] [facility] 3 11:07:34 06535 silver medicatio n Not available Not available Not available 01/30/2023 97026 43 RxNorm GAMA CURTIS NP [address] [facility], [address], [place], [address], [employer] [facility] 3 11:07:40 Medications Name Sig Start Date Stop Date Status Note LastModified by Organization Details LastModified Time Ativan 1 mg tablet Take 0.5 tablets every 12 hours by oral route as needed for 14 days. 023 active Not Available Not Available Not Avai lable lorazepam 0.5 mg tablet Take 1 tablet twice a day by oral route as needed. 023 active Not Available Not Available Not Avai lable Vitals Date Recorded Body height Heart rate Respiratory rate Body temperature Oxygen saturation Oxygen saturation in Arterial blood by Pulse oximetry Systolic blood pressure Diastolic blood pressure Provider Name and Address Organization Details Last Updated DateTime 3 152.4 cm 74 /min 16 /min 98.1 [degF] 96 % 96 % 128 mm[Hg] 72 mm[Hg] GAMA CURTIS NP [address] [facility], [address], [place], [address], [employer] [facility] 3 12:50:01 Date Recorded Body height Heart rate Respiratory rate Body temperature Oxygen saturation Oxygen saturation in Arterial blood by Pulse oximetry Systolic blood pressure Diastolic blood pressure Provider Name and Address Organization Details Last Updated DateTime 3 152.4 cm 70 /min 16 /min 97 [degF] 96 % 96 % 117 mm[Hg] 59 mm[Hg] GAMA CURTIS NP [address] [facility], [address], [place], [address], [employer] [facility] 3 14:07:44 Date Recorded Body height Heart rate Respiratory rate Body temperature Oxygen saturation Oxygen saturation in Arterial blood by Pulse oximetry Systolic blood pressure Diastolic blood pressure Provider Name and Address Organization Details Last Updated DateTime 3 152.4 cm 72 /min 16 /min 97.8 [degF] 96 % 96 % 133 mm[Hg] 84 mm[Hg] GAMA CURTIS NP [address] [facility], [address], [place], [address], [employer] [facility] 3 09:55:39 Date Recorded Body weight Heart rate Respiratory rate Body temperature Provider Name and Address Organization Details Last Updated DateTime 06/13/2024 581792.5 6 g 30 /min 22 /min 97.5 [degF] Domi Richey NP [address] [facility], [address], [place], [address] , [employer] [facility] 06/13/2024 12:00:19 Date Recorded Body height Body mass index (BMI) Body weight Heart rate Respiratory rate Body temperature Oxygen saturation Oxygen saturation in Arterial blood by Pulse oximetry Systolic blood pressure Diastolic blood pressure Provider Name and Address Organization Details Last Updated DateTime 4 152.4 cm 20.5 kg/m2 99648.2 g 76 /min 18 /min 97 [degF] 97 % 97 % 191 mm[Hg] 74 mm[Hg] Teresita Wiley MD [address] [facility], [address], [place], [address], [employer] [facility] 4 20:47:12 Social History Question Answer Notes LastModified by Organization Details LastModified Time Tobacco Smoking Status Former Smoker was 1/2 ppd Teresita Wiley MD [address] [facility], [address], [place], [address], [employer] [facility] 06/14/2024 20:37:28 Do You Have An Advance Directive? Yes Information not available 01/30/2023 What Is Your Level Of Alcohol Consumption? 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 Smokes Marijuana Information not available 01/30/2023 Where Do You Live? SingleLevelHouse Lives At Home Alone, 2 Entry Stairs Information not available 02/02/2023 Legal Guardian? No Information not available 02/02/2023 Do You Have A Medical Power Of Sweatband Maker? Yes Not Invoked Information not available 02/02/2023 What Was The Date Of Your Most Recent Tobacco Screening? 06/13/2024 Unable To Answer Completely Information not available 06/13/2024 Do You Have An Out Of Hospital DNR? Yes Information not available 02/02/2023 What Is Your Relationship Status? Was Twice, Once , Once . Information not available 02/02/2023 How Much Tobacco Do You Smoke? No Information not available 06/14/2024 Do You Use Any Illicit Or Recreational Drugs? Yes Information not available 01/30/2023 Has Tobacco Cessation Counseling Been Provided? No N/a As Pt No Longer Smokes Information not available 06/14/2024 On What Date Was Tobacco Cessation Counseling Provided? 06/13/2024 Information not available 06/13/2024 Have You Used IV Drugs? No Information not available 01/30/2023 Do You Or Have You Ever Used Any Other Forms Of Tobacco Or Nicotine? No Information not available 01/30/2023 Sex: Unknown Functional Status None recorded. Mental Status None recorded. Family History Nothing Reported Notes:parents-, N/C Medical History No medical history recorded. Gynecological HistoryNo gynecological history recorded. Obstetrics History GPAL:G 0 P 0 0 0 0 Immunizations Vaccine Type Date Status Provider Name and Address Organization Details Recorded Time Influenza, adjuvanted, quadrivalent, PF 04/03/2022 completed Bev chong [place] [facility] 07/27/2023 12:40:24 Influenza, adjuvanted, quadrivalent, PF 04/06/2023 [facility] 11/12/2023 12:53:26 COVID-19, mRNA, LNP-S, bivalent, PF, 50 mcg/0.5 mL or 25mcg/0.25 mL dose 09/12/2020 [facility] 11/12/2023 12:53:52 COVID-19, mRNA, LNP-S, bivalent, PF, 50 mcg/0.5 mL or 25mcg/0.25 mL dose 10/10/2020 completed Bevreema Hernández [facility] 11/12/2023 12:53:57 COVID-19, mRNA, LNP-S, bivalent, PF, 30 mcg/0.3 mL dose 05/23/2021 [facility] 11/12/2023 12:54:10 COVID-19, mRNA, LNP-S, bivalent, PF, 30 mcg/0.3 mL dose 04/03/2022 [facility] 11/12/2023 12:54:14 zoster recombinant 06/12/2021 completed Bevreema Hernández [facility] 11/12/2023 12:54:37 zoster recombinant 04/13/2021 [facility] 11/12/2023 12:54:44 pneumococcal polysaccharide PPV23 04/14/2019 completed Bev Hernández [facility] 11/12/2023 12:54:59 Pneumococcal conjugate PCV 13 03/26/2015 completed Bev Hernández [facility] 11/12/2023 12:55:12 Tdap 01/22/2016 completed Bev Hernández [facility] 11/12/2023 12:55:27 Past Encounters Encounter ID Performer Location Encounter Start Date Encounter Closed Date Diagnosis/Indication Diagnosis SNOMED-CT Code Diagnosis ICD10 Code [id number] ALVERTO BRYANT [address] [facility] [place] [address] 01/30/2023 10:57:35 02/03/2023 14:14:56 Diabetic foot ulcer 024998307 E13.621 Asthenia 12567759 R53.1 Type 2 angel betes mellitus 21630225 E11.29 Chronic ob structive pulmonary disease 80205207 J44.9 Essential hypertension 19724897 I10 Gastroesop hageal reflux disease without esophagitis 078986370 K21.9 Hyperlipidemia 61776913 E78.5 Major depr essive disorder 040617982 F32.9 Anxiety 14914014 F41.9 [id number] GAMA CURTIS NP [address] [address] 01/31/2023 13:17:01 02/03/2023 14:23:00 Recurrent falls 903682326 R29.6 Osteomyelitis 30850322 M 86.9 Diabetic foot ulcer 3710 67469 E13.621 Anxiety 87345062 F41.9 [id number] Teresita Wiley MD [address] [address] 02/02/2023 14:54:57 02/04/2023 11:03:48 Osteomyelitis 72543655 M86.172 Diabetic foot ulcer 3710 30657 L97.528 Anxiety 90518782 F41.1 Asthenia 54193023 R53.1 Type 2 angel betes mellitus 69885715 E11.29 Chronic ob structive pulmonary disease 50214846 J43.8 Essential hypertension 53630276 I10 Gastroesop hageal reflux disease without esophagitis 160193116 K21.9 Hyperlipidemia 49192394 E78.49 Major depr essive disorder 006383043 F32.89 Coronary arteriosclerosis 70792222 I25.10 Cigarette smoker 0786283 7 F17.210 [id number] Teresita Wiley MD [address] [address] 02/05/2023 12:15:43 02/10/2023 15:40:30 Anxiety 08323555 F41.1 Osteomyelitis 88091700 M 86.172 Asthenia 53317703 R53.1 [id number] GAMA CURTIS NP [address] [address] 02/06/2023 12:17:12 02/10/2023 16:19:38 Anxiety 79967198 F41.1 Osteomyelitis 60204197 M 86.172 Recurrent falls 87199586 2 R29.6 [id number] GAMA CURTIS NP [address] [address] 02/09/2023 12:39:58 02/11/2023 16:57:58 Osteomyelitis 27178171 M86.172 Recurrent falls 30504916 2 R29.6 Asthenia 48931550 R53.1 [id number] GAMA CURTIS NP [address] [address] 02/18/2023 13:37:50 02/25/2023 08:33:59 Osteomyelitis 25921668 M86.172 Major depr essive disorder 586974684 F32.89 Anxiety 66636094 F41.1 [id number] GAMA CURTIS NP [address] [address] 03/02/2023 09:50:52 03/04/2023 14:10:55 Osteomyelitis 80770068 M86.172 Major depr essive disorder 279431926 F32.89 Anxiety 66647565 F41.1 Diabetic foot ulcer 3710 23953 E13.621 Asthenia 63683377 R53.1 Type 2 angel betes mellitus 91150166 E11.29 Chronic ob structive pulmonary disease 66470697 J44.9 Essential hypertension 20779047 I10 Gastroesop hageal reflux disease without esophagitis 015757329 K21.9 Hyperlipidemia 10527907 E78.5 [id number] [facility] [address] 06/13/2024 11:58:06 06/14/2024 13:37:09 Respiratory failure 083552993 J96.90 Congestive heart failure 23334970 I50.9 Complete atrioventricular block 16353647 I44.2 Comfort ca re only status 7026216967 9105 Z78.9 [id number] [facility] [address] 06/14/2024 20:35:03 06/14/2024 22:42:23 Respiratory failure 534794412 J96.21 Congestive heart failure 84125274 I50.9 Complete atrioventricular block 19696032 I44.2 Dysuria 92928872 R30.0 Acute nont raumatic kidney injury 9450234133 19812 N17.8 Health Concerns Section Related Observation LastModified by Organization Detai ls LastModified Time None Recorded Concern Status LastModified by Organization Details LastModified Time None Recorded Advance Directives Directive Y: Payers Encounter Date Sequence Insurance Name Policy Number Policy Desai Covered Member ID Desai Member ID Guarantor Name 02/09/2023 1 [place] Yaneth A Stone [id number] Yaneth Stone 02/09/2023 2 [place] Yaneth Stone [id number] Yaneth Stone 02/18/2023 1 [place] Yaneth A Stone [id number] Yaneth Stone 02/18/2023 2 [place] Yaneth Stone [id number] Yaneth Stone 03/02/2023 1 [place] Yaneth A Stone [id number] Yaneth Stone 03/02/2023 2 [place] Yaneth Stone [id number] Yaneth Stone 06/13/2024 1 [place] Yaneth A Stone [id number] Yaneth Stone 06/13/2024 2 [place] Yaneth Stone [id number] Yaneth Stone 06/14/2024 1 [place] [employer] Yaneth A Stone [id number] Yaneth Stone 06/14/2024 2 [place] Yaneth Stone [id number] Yaneth Stone Notes Date Note Type Note Provider Name and Address Organization Details Recorded Time 02/09/2023 text/html seen today for a cute rounding visit- CAOx3 sitting on side of bed, piccline intact and she is tolerating her abx therapy, she is also participating with PT and exercises, each day she reports that she is going home GAMA CURTIS NP [address] [facility], [address], [place], [address], [facility] 02/09/2023 12:58:48 02/18/2023 text/html seen today for a cute rounding visit,CAox3 anxious and weepy, she wants to go home and upset that her daughter has not called or answered her phone GAMA CURTIS NP [address] [facility], [address], [place], [address], [employer] 02/18/2023 14:13:21 03/02/2023 text/html seen today for discharge summary-77 yof admitted to for rehab and iv abx therapy after she presented to the hospital from home 01/28 with weakness and unable to ambulate, vna arrived for her iv abx therapy and found her unable to get off the toilet, pt left the hospital AMA when recommendation of rehab was mentioned.Not sure how the recommendation to come here was accomplished, no notes found. CAOx3 she had alot of anxiety while here and had threatenened to leave AMA a couple of times but had no ride to go home, tolerated the iv abx and her anxiety calmed over the course of her stay here, medically stable at time of visit GAMA CURTIS NP [address] [facility], [address], [place], [address], [employer] 03/02/2023 09:59:14 06/13/2024 text/html Pt is seen for a n initial intake visit. PMH: HTN, CAD, carotid artery occlusion, AODM, GERD, CKD stage 3, depression/anxiety, and cigarette and cannabis smoker, afib on eliquis and amiodarone, CHF, DM. Pt is a 78 yo female with pmh above recently [place] [facility] [place] after extensive workup for asymptomatic anemia, requiring 2 units RBC without obvious source of bleeding discharged to rehab. 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 On exam, Yaneth is nonresponsive to voice or touch today. She has disorganized agonal breathing with periods of shallow breaths. HR 20-40/min irr and with pauses. She has 3 liters o2 very nc and skin warm, dry, and not cyanotic. Per staff she has not eaten today at all. Abd is distended and unknown last BM. Will give supp today. Due to pt unrepsonsiveness filled history and social info with hospital and prior admit data in addition to family info. GOC: addressed with daughter Marian Prado over the phone. She is taking PVTA to get here today and will sign the MOLST but is very clear DNR/DNI/DNH and comfort care only. She agrees to morphine scheduled today and would like her comfortable, no labs, tests, or procedures. Domi Richey, ALVERTO [address] [facility], [address], [place], [address], [employer] 06/13/2024 13:14:57 06/14/2024 text/html This is a 78 yo woman who is here for end of life care with rehab as able, after an 2 recent acute hospitalizations for anemia of unknown etiology and then CHF exacerbation with CHB.Per d/c summary: From the history and physical by the admitting hospitalist, Maurice Bradley, 06/09/24: 78-year-old female with past medical history significant for paroxysmal atrial fibrillation on Eliquis and amiodarone, history of congestive heart failure, chronic kidney disease stage 3, diabetes mellitus, major depressive disorderRecently [facility] after undergoing extensive workup for symptomatic anemia, required 2 units of blood transfusion no source of bleeding notedpatient was discharged to rehab on all of her baseline medications, however patient is sent back to [place] ED due to hypoxia with fingeroximetry in 70spatienttreated with BiPAP, updraft treatment, chest x-ray concerning for congestive heart failureaccording to patient she was unable to sleep last night became anxious and short of breath she denies fever but complaining of chills and cough, denies choking with food, no vomiting, no nausea, no abdominal pain, no melena or hematemesis patient treated in the emergency room withIV ceftriaxone, IV steroids and updraft treatment, will be admitted to [facility] with a diagnosis of acute on chronic CHF with reduced EF and possible superadded infectionAnd LAURO. 78yo F with COPD, HFrEF, pAF, CKD, DM2, CAD sent from [facility] to hospital with hypoxia + dyspnea, admitted for CHF exacerbation.Rapidly developed bradycardia with complete heart block and asystole; became unresponsive with agonal breathing.In discussion among chief counsel, admitting hospitalist, and pt's daughter/HCP Marian, [facility], lorazepam, and scopolamine as pt's was felt to be imminent.She seemed to stabilize to some degree and did affirm to me that she did not want a pacemaker and wished to continue comfort care. She was transferred to [facility] for ongoing comfort measures care. Transferred here on 06/12. Since here she was initially unresponsive, but did work with rehab a little today.She is being txed with comfort meds.Over the weekend she felt like she needed to pee but couldn't and PVRs and st. caths were ordered.Unclear why labs were ordered, but she did have labs yest and had hyperkalemia and LAURO. No tx appropriate at this time Tonight she is sleeping, but wakes and tells me she is not doing well. She is thirsty and hard to move to get water from her night table and when she rings it takes a long time for anyone to come and care for her. Feels abandoned. No pain.I pour her some water and she drinks 1/2 a glass through the straw. Her PMH includes HTN, new onset CHB and LAURO on CKD, CAD, carotid artery occlusion, AODM, GERD, CKD stage 3, depression/anxiety, and cigarette and cannabis smoker. Teresita Wiley MD [address] [facility], [address], [place], [address], [facility] [employer] 06/14/2024 22:42:21 OBGyn Episode No OBEpisode recorded.
--- OUTSIDE RECORDS SUMMARY | 2024-06-14 23:28 | XMS_ITS | Continuity of Care Document ---
Author Organization [facility], [facility] Address [address] [place] [address] Care Team Providers Care Printer Operator Name Role Phone [facility] - 2ND F[facility]OR OTHER Assessment No assessment [...] and Address Organization Details Recorded Time Asthenia [id number] Active 2022 GAMA CURTIS NP [address] , [address], [place], [address], [facility] 3 11:21:54 Diabetic foot ulcer 792005738 Active 2022 GAMA CURTIS NP [address] , [address], [place], [address], [facility] 3 11:22:02 Type 2 diabetes mellitus 87106086 Active 2022 GAMA CURTIS NP [address] , [address], [place], [address], [facility] 3 11:22:08 Essential hypertension 29676479 Active 2022 GAMA CURTIS NP [address], [address], [place], [address], [facility] 3 11:22:22 Gastroesophage al reflux disease without esophagitis 492687803 Active 2022 GAMA CURTIS, CIRCUIT DESIGN ENGINEER [address], [address], [place], [address], [facility] [employer] [facility] 3 11:22:28 Chronic obstructive pulmonary disease 73455877 Active 2022 GAMA KIRSTEN, CIRCUIT DESIGN ENGINEER [address], [address], [place], [address], [facility] [employer] [facility] 3 11:22:42 Hyperlipidemia 65234937 Active 2022 GAMA KIRSTEN, CIRCUIT DESIGN ENGINEER [address], [address], [place], [address], [facility] [employer] [facility] 3 11:22:49 Major depressive disorder 408515478 Active 2022 GAMA CURTIS, CIRCUIT DESIGN ENGINEER [address], [address], [place], [address], [facility] [employer] [facility] 3 11:23:08 Anxiety 80583735 Active 2022 GAMA CURTIS, CIRCUIT DESIGN ENGINEER [address], [address], [place], [address], [facility] [employer] [facility] 3 11:23:14 Recurrent falls 423583421 Active 2022 GAMA CURTIS, CIRCUIT DESIGN ENGINEER [address], [address], [place], [address], [facility] [employer] [facility] 3 14:29:21 Osteomyelitis 35788135 Active 2022 GAMA CURTIS, CIRCUIT DESIGN ENGINEER [address], [address], [place], [address], [facility] [employer] [facility] 3 14:29:36 Diabetic foot ulcer 294028229 Active 2022 Teresita Wiley MD [address], [address], [place], [address], [employer] 3 16:40:03 Coronary arterioscleros is 14317829 Active 2022 Teresita Wiley MD [address], [address], [place], [address], [employer] [facility] 3 16:53:50 Cigarette smoker 57708639 Active 2022 Teresita Wiley MD [address] [facility], [address], [place], [address], [facility] [employer] [facility] 3 16:54:18 Respiratory failure 321309953 Active 2023 Domi Richey NP [address], [address], [place], [address], [facility] [employer] [facility] 4 12:36:43 Problem Notes None recorded. Medical Equipment None Reported. Allergies Allergen ID Allergen Name Allergen Category Reaction Reaction Severity Criticality Documentation Date Start Date Code Code System Note Provider Name and Address Organization Details Recorded Time 25512 adhesive tape environme nt,medica tion Not available Not available Not available 01/30/2023 12235 UNK GAMA CURTIS NP [address] [place] [address], [facility] [address], [place], [address], [facility] [employer] [facility] 3 11:07:34 90245 silver medicatio n Not available Not available Not available 01/30/2023 32672 43 RxNorm GAMA CURTIS NP [address] [facility], [facility] [address], [place], [address], [facility] [employer] [facility] 3 11:07:40 Medications Name Sig Start [...] Not Avai lable Vitals Date Recorded Body weight Heart rate Respiratory rate Body temperature Provider Name and Address Organization Details Last Updated DateTime 06/13/2024 520113.5 6 g 30 /min 22 /min 97.5 [degF] Domi Richey NP [address] [facility], [facility] [address], [place], [address] , [facility] [employer] [facility] 06/13/2024 12:00:19 Social History Question Answer Notes LastModified by Organization Details LastModified Time Tobacco Smoking Status Former Smoker was 1/2 ppd Teresita Wiley MD [address] [facility], [facility] [address], [place], [address], [facility] 06/14/2024 20:37:28 Do You Have An Advance Directive? Yes Information not available 01/30/2023 What Is Your Level Of Alcohol Consumption? 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 Smokes Marijuana Information not available 01/30/2023 Where Do You Live? Single[place]House Lives At Home Alone, 2 Entry Stairs Information not available 02/02/2023 Legal Guardian? No Information not available 02/02/2023 Do You Have A Medical Power Of Event Marketing Intern? Yes Not Invoked Information not available 02/02/2023 [...] adjuvanted, quadrivalent, PF 04/03/2022 completed Bev chong [facility] [address] 07/27/2023 12:40:24 Influenza, adjuvanted, quadrivalent, PF [facility]06[facility] 12:53:26 COVID-19, mRNA, LNP-S, bivalent, PF, 50 mcg/0.5 mL or 25mcg/0.25 mL dose 09/12/2020 [facility] 12:53:52 COVID-19, mRNA, LNP-S, bivalent, PF, 50 mcg/0.5 mL or 25mcg/0.25 mL dose 10/10/2020 [facility]12[facility]23 12:53:57 COVID-19, mRNA, LNP-S, bivalent, PF, 30 mcg/0.3 mL dose 05/23/2021 [facility]23 12:54:10 COVID-19, mRNA, LNP-S, bivalent, PF, 30 mcg/0.3 mL dose 04/03/2022 [facility]23 12:54:14 zoster recombinant 06/12/2021 [facility]23 12:54:37 zoster recombinant 04/13/2021 [facility]23 12:54:44 pneumococcal polysaccharide PPV23 04/14/2019 completed Bev Hernández [facility] 11/12/2023 12:54:59 Pneumococcal conjugate PCV 13 03/26/2015 completed Bev Hernández [facility] 11/12/2023 12:55:12 Tdap 01/22/2016 completed Bev Hernández [facility] 11/12/2023 12:55:27 Past Encounters Encounter ID Performer Location Encounter Start Date Encounter Closed Date Diagnosis/Indication Diagnosis SNOMED-CT Code Diagnosis ICD10 Code [id number] Domi Richey NP [address] [address] 06/13/2024 11:58:06 06/14/2024 13:37:09 Respiratory failure 228494872 J96.90 Congestive heart failure 21058921 I50.9 Complete atrioventricular block 00067169 I44.2 Comfort ca re only status 1123753141 9105 Z78.9 Health Concerns Section Related Observation LastModified by Organization Detai ls LastModified Time None Recorded Concern Status LastModified by Organization Details LastModified Time None Recorded Payers Encounter Date Sequence Insurance Name Policy Number Policy Desai Covered Member ID Desai Member ID Guarantor Name 06/13/2024 1 [place] [employer] Yaneth A Stone [id number] Yaneth Stone 06/13/2024 2 [place] [facility] Yaneth Stone [id number] Yaneth Stone Notes Date Note Type Note Provider Name and Address Organization Details Recorded Time 06/13/2024 text/html Pt is seen for a n initial intake visit. PMH: HTN, CAD, carotid artery occlusion, AODM, GERD, CKD stage 3, depression/anxiety, and cigarette and cannabis smoker, afib on eliquis and amiodarone, CHF, DM. Pt is a 78 yo female with pmh above recently discharged from [facility] on 06/08 after extensive workup for asymptomatic anemia, requiring 2 units RBC without obvious source of bleeding discharged to rehab. On 06/09 she was readmitted to [facility] due to hypoxia and dyspnea admitted for CHF exacerbation found to have CHB, asystole, unresponsive with agonal breathing in which she transferred to CARE PROGRAM RESIDENT care with morphine, lorazepam, and scopolamine as was felt likely imminent in which, she was transferred to [facility] for CARE PROGRAM RESIDENT on 06/12. On exam, Yaneth is nonresponsive [...] tests, or procedures. Domi Richey, ALVERTO [address] [facility], [address], [place], [address], [facility] [employer] 06/13/2024 13:14:57 OBGyn Episode No OBEpisode recorded.
== END 2024-06-12 18:38 | disposition hospice, inpatient (51) | DRG 291 ==
LOC: HO.ED 08:42 → HO.EDOVER 11:56 → HO.S3 15:41
PROVIDERS: Physician Assistant Medical; Admitting Provider Hospitalist; Emergency Provider Student in an Organized Health Care Education/Training Program; PCP Internal Medicine; Visit Provider Family Medicine
DX: I13.0 Hypertensive heart and chronic kidney disease with heart failure and stage 1 through stage 4 chronic kidney disease, or unspecified chronic kidney disease (principal); I50.23 Acute on chronic systolic (congestive) heart failure; N17.9 Acute kidney failure, unspecified; I44.2 Atrioventricular block, complete; D63.1 Anemia in chronic kidney disease; I25.10 Atherosclerotic heart disease of native coronary artery without angina pectoris; Z51.5 Encounter for palliative care; E11.51 Type 2 diabetes mellitus with diabetic peripheral angiopathy without gangrene; I25.5 Ischemic cardiomyopathy; I70.202 Unspecified atherosclerosis of native arteries of extremities, left leg; Z66 Do not resuscitate; N18.30 Chronic kidney disease, stage 3 unspecified; I48.0 Paroxysmal atrial fibrillation; E11.22 Type 2 diabetes mellitus with diabetic chronic kidney disease; Z20.822 Contact with and (suspected) exposure to COVID-19; Z87.891 Personal history of nicotine dependence; Z79.01 Long term (current) use of anticoagulants; Z79.899 Other long term (current) drug therapy
CPT/HCPCS: 0241U; 36415; 71045; 80048; 82803; 82947; 83605; 83880; 84484; 85025; 87040; 93005; 94640; 99285; J0461; J0696; J2060; J2270; J2405; J2919; J3475

== ENCOUNTER → 2024-06-09 06:31 | Outpatient (BNV) | payer MEDICARE, MEDICAID, SELFPAY | PROVIDERS: Emergency Provider Student in an Organized Health Care Education/Training Program; PCP Internal Medicine; Visit Provider Radiology Diagnostic Radiology | DX: J81.1 Chronic pulmonary edema (principal); J90 Pleural effusion, not elsewhere classified | CPT/HCPCS: 71045 ==

== ENCOUNTER → 2024-06-09 11:51 | Outpatient (BNV) | payer MEDICARE, MEDICAID, SELFPAY | PROVIDERS: Admitting Provider Hospitalist; Emergency Provider Student in an Organized Health Care Education/Training Program; PCP Internal Medicine; Visit Provider Hospitalist | DX: I50.9 Heart failure, unspecified (principal); I48.0 Paroxysmal atrial fibrillation | CPT/HCPCS: 99223; 99232; 99239 ==

== ENCOUNTER → 2024-06-09 11:51 | Outpatient (BNV) | payer MEDICARE, MEDICAID, SELFPAY | PROVIDERS: Admitting Provider Hospitalist; Emergency Provider Student in an Organized Health Care Education/Training Program; PCP Internal Medicine; Visit Provider Internal Medicine Cardiovascular Disease | DX: I50.9 Heart failure, unspecified (principal); I48.0 Paroxysmal atrial fibrillation; I10 Essential (primary) hypertension | CPT/HCPCS: 93010; 99223 ==